=== PATIENT | male | born 1945 | race Hispanic/Latino ===

== ENCOUNTER 2019-01-09 14:03 | Observation (INO) | payer OTHER ==
[2019-01-09 14:49] LABS: Absolute Lymphocytes (CBC) 0.9 K/uL (0.7-4.9); Basophils % 0.4 % (0-1.3); Hematocrit 38.5 % (39.6-49.0); Lymphocytes % 5.9 % (15.3-44.8); MPV 8.9 fL (7.6-11.3); RBC Red Blood Cell Count 4.19 M/uL (4.33-5.43)
--- NOTE | 2019-01-09 14:50 | EKG ---
Test Date: 2019-01-09 Test Time: 14:15:23 Director Of Dietary: JEFFREY MEASUREMENT RESULTS: Intervals: Rate: 105 OR: 186 QRSD: 76 QT: 330 QTc: 436 [place]: P: 63 OR: 186 QRS: -37 T: 59 INTERPRETIVE STATEMENTS: Sinus tachycardia Left axis deviation Abnormal ECG Compared to ECG 07/21/2017 02:27:21 Sinus rhythm no longer present Electronically Signed On 01-09-19 14:50:14 CDT by Torey Swift
[2019-01-09 15:04] LABS: Potassium 4.2 mmol/L (3.5-5.1); Troponin (Emerg Dept Use Only) 0.06 ng/mL (0.0-0.045)
[2019-01-09 15:09] LABS: Blood Morphology Comment NOT SEEN (NOT SEEN); Platelet Estimate ADEQ; Urine White Blood Cell Casts OK
--- NOTE | 2019-01-09 15:13 | RAD REPORT ---
EXAM DESCRIPTION: Karina Single View01/09/2019 2:56 pm CLINICAL HISTORY: Shortness of breath COMPARISON: July 2017 FINDINGS: The lungs appear clear of acute infiltrate. The heart is normal size IMPRESSION: No acute abnormalities displayed
--- NOTE | 2019-01-09 15:23 | ER ---
Nurse's Notes [facility] Name: Iam Nelson Age: 73 yrs Sex: Male : 1945 Arrival Date: 01/09/2019 Time: 14:07 Bed 20 Private MD: Alex Bethea Diagnosis: Non-ST elevation (NSTEMI) myocardial infarction;Acute kidney failure, unspecified Presentation: 01/09 14:20 Presenting complaint: Patient states: I got my blood drawn and went outside and felt la1 like I couldn't breathe. Transition of care: patient was not received from another setting of care. Onset of symptoms was January 09, 2019. Risk Assessment: Do you want to hurt yourself or someone else? Patient reports no desire to harm self or others. Initial Sepsis Screen: Does the patient meet any 2 criteria? No. Patient's initial sepsis screen is negative. Does the patient have a suspected source of infection? No. Patient's initial sepsis screen is negative. Care prior to arrival: None. 14:20 Method Of Arrival: Ambulatory la1 14:20 Acuity: DORA 3 la1 Historical: - Allergies: 14:22 No Known Allergies; la1 - Home Meds: 16:00 finasteride 5 mg Oral tab 1 tab once daily for Symptomatic Benign Prostatic Hyperplasia hb [Active]; losartan 25 mg Oral tab 1 tab once daily for Hypertension [Active]; Zyrtec 10 mg Oral tab 1 tab once daily for Allergic rhinitis [Active]; - PMHx: 14:22 Cataracts; Hyperlipidemia; Hypertension; inflammed prostate; la1 - Immunization history:: Adult Immunizations up to date. - Social history:: Smoking status: Patient/guardian denies using tobacco. - Ebola Screening: : No symptoms or risks identified at this time. - Family history:: not pertinent. - Hospitalizations: : No recent hospitalization is reported. Screenin:40 Abuse screen: Denies threats or abuse. Denies injuries from another. Nutritional hb screening: On. Tuberculosis screening: No symptoms or risk factors identified. Fall Risk None identified. Assessment: 14:40 General: Appears in no apparent distress. Behavior is calm, cooperative. Pain: Pain hb does not radiate. Pain currently is 4 out of 10 on a pain scale. Pain began gradually. Neuro: Level of Consciousness is awake, alert, obeys commands, Oriented to person, place, time, situation. Cardiovascular: Heart tones S1 S2 present Capillary refill < 3 seconds Patient's skin is warm and dry. Respiratory: Airway is patent Respiratory effort is even, unlabored, Respiratory pattern is regular, symmetrical, Breath sounds are clear bilaterally. GI: No signs and/or symptoms were reported involving the gastrointestinal system. : No signs and/or symptoms were reported regarding the genitourinary system. EENT: No signs and/or symptoms were reported regarding the EENT system. Derm: Skin is intact, is healthy with good turgor, Skin is pink, warm \T\ dry. Musculoskeletal: No signs and/or symptoms reported regarding the musculoskeletal system. 15:15 Reassessment: Patient appears in no apparent distress at this time. Patient and/or hb family updated on plan of care and expected duration. Pain level reassessed. Patient is alert, oriented x 3, equal unlabored respirations, skin warm/dry/pink. 16:05 Reassessment: Patient appears in no apparent distress at this time. Patient and/or hb family updated on plan of care and expected duration. Pain level reassessed. Patient is alert, oriented x 3, equal unlabored respirations, skin warm/dry/pink. Admission ordered, awaiting room assignment at this time. 16:42 Reassessment: Attempted to call report to floor, receiving nurse unavailable at this time. 17:14 Reassessment: Patient appears in no apparent distress at this time. No changes from previously documented assessment. Patient and/or family updated on plan of care and expected duration. Pain level reassessed. Patient is alert, oriented x 3, equal unlabored respirations, skin warm/dry/pink. Vital Signs: 14:22 BP 180 / 80; Pulse 111; Resp 16; Pulse Ox 98% on R/A; la1 15:30 Temp 98.2; Weight 65.77 kg; Height 5 ft. 5 in. (165.10 cm); hb 16:15 BP 151 / 71; Pulse 97; Resp 17; Pulse Ox 100% on R/A; Pain 0/10; hb 17:00 BP 144 / 73; Pulse 91; Resp 15; Pulse Ox 100% on R/A; hb 15:30 Body Mass Index 24.13 (65.77 kg, 165.10 cm) hb ED Course: 14:07 Patient arrived in ED. mr 14:07 Alex Bethea MD is Private Physician. mr 14:13 Gabe Alejandre MD is Attending Physician. rn 14:21 Triage completed. la1 14:22 Arm band placed on right wrist. la1 14:24 EKG done, by audiovisual tech. reviewed by Alex Bethea MD. tc 14:27 Rosa Hernandez, RN is Primary Nurse. hb 14:40 Patient has correct armband on for positive identification. Placed in gown. Bed in low hb position. Call light in reach. white lead grinder on. Pulse ox on. NIBP on. 14:40 Inserted saline lock: 20 gauge in right forearm, using aseptic technique. Blood hb collected. Patient maintains SpO2 saturation greater than 95% on room air. 14:55 X-ray completed. Portable x-ray completed in exam room. Patient tolerated procedure ml well. 15:11 XRAY Chest (1 view) In Process Unspecified. EDWA 15:22 Jose Villeda DO is Hospitalizing Provider. rn 17:53 No provider procedures requiring assistance completed. Patient admitted, IV remains in hb place. Administered Medications: 15:44 Drug: NS 0.9% 500 ml Route: IV; Rate: bolus; Site: right forearm; hb 16:00 Follow up: Response: No adverse reaction; IV Status: Completed infusion; IV Intake: hb 500ml 15:44 Drug: Aspirin 81 mg Route: PO; hb 16:40 Follow up: Response: No adverse reaction hb 15:44 Drug: Lovenox 1 mg/kg Route: Sub-Q; Site: abdomen; hb 16:40 Follow up: Response: No adverse reaction hb Intake: 16:00 IV: 500ml; Total: 500ml. hb Outcome: 15:23 Decision to Hospitalize by Provider. rn 17:53 Admitted to Tele accompanied by tech, via wheelchair, Report called to Alfredo sullivan 17:53 Condition: stable 17:53 Instructed on the need for admit, Demonstrated understanding of instructions. 17:55 Patient left the ED. hb Signatures: Dispatcher [employer] EDWA Pramod Brittney White Luisa ml Gabe Alejandre MD MD rn Callis, Tiffany, facilities maintenance supervisor EKG Ttc Tahir Oneil RN RN la1 Rosa Hernandez, JEREMY RN hb Corrections: (The following items were deleted from the chart) 15:33 15:30 65.77 kg; Height 5 ft. 5 in.; BMI: 24.1; hb hb
--- NOTE | 2019-01-09 15:24 | EDPHYS ---
Physician Documentation [facility] Name: Iam Nelson Age: 73 yrs Sex: Male : 1945 Arrival Date: 01/09/2019 Time: 14:07 Bed 20 Private MD: Alex Bethea ED Physician Gabe Alejandre HPI: 01/09 14:29 This 73 yrs old Male presents to ER via Ambulatory with complaints of Chest rn Pressure, palpitations, sob. 14:29 The patient or guardian reports chest pain that is located primarily in the substernal rn area. Onset: today. The pain does not radiate. Associated signs and symptoms: Pertinent positives: palpitations, shortness of breath, Pertinent negatives: abdominal pain, diaphoresis, near syncope, syncope, vomiting. The chest pain is described as a pressure. Duration: The patient or guardian reports multiple episodes, that are intermittent. Modifying factors: The symptoms are alleviated by nothing. the symptoms are aggravated by exertion. Severity of pain: At its worst the pain was mild in the emergency department the pain has improved. The patient has experienced a previous episode. Reports had blood drawn today, felt ok, was outside and reports dyspnea with exertion, chest pressure, non-radiating, currently asymptomatic, reports palpitations. States has happened once before and doesn't recall what happened. Denies recent surgery or trauma. No fever. . Historical: - Allergies: 14:22 No Known Allergies; la1 - Home Meds: 16:00 finasteride 5 mg Oral tab 1 tab once daily for Symptomatic Benign Prostatic Hyperplasia hb [Active]; losartan 25 mg Oral tab 1 tab once daily for Hypertension [Active]; Zyrtec 10 mg Oral tab 1 tab once daily for Allergic rhinitis [Active]; - PMHx: 14:22 Cataracts; Hyperlipidemia; Hypertension; inflammed prostate; la1 - Immunization history:: Adult Immunizations up to date. - Social history:: Smoking status: Patient/guardian denies using tobacco. - Ebola Screening: : No symptoms or risks identified at this time. - Family history:: not pertinent. - Hospitalizations: : No recent hospitalization is reported. ROS: 14:29 Constitutional: Negative for fever, chills, and weight loss, Eyes: Negative for injury, rn pain, redness, and discharge, Neck: Negative for injury, pain, and swelling, Cardiovascular: Negative for edema Respiratory: Negative for wheezing, and pleuritic chest pain, Abdomen/GI: Negative for abdominal pain, nausea, vomiting, diarrhea, and constipation, MS/Extremity: Negative for injury and deformity, Skin: Negative for injury, rash, and discoloration, Neuro: Negative for headache, weakness, numbness, tingling, and seizure. Exam: 14:29 Constitutional: This is a well developed, well nourished patient who is awake, alert, rn and in no acute distress. Head/Face: Normocephalic, atraumatic. Eyes: Pupils equal round and reactive to light, extra-ocular motions intact. Lids and lashes normal. Conjunctiva and sclera are non-icteric and not injected. Cornea within normal limits. Periorbital areas with no swelling, redness, or edema. Cardiovascular: Tachycardic, regular, no murmur Respiratory: Lungs have equal breath sounds bilaterally, clear to auscultation. No increased work of breathing, no retractions or nasal flaring. Abdomen/GI: Soft, non-tender. No evidence of tenderness throughout. MS/ Extremity: Pulses equal, no cyanosis. Neurovascular intact. Full, normal range of motion. Equal circumference. Neuro: Awake and alert, GCS 15, oriented to person, place, time, and situation. Cranial nerves II-XII grossly intact. Motor strength 5/5 in all extremities. Sensory grossly intact. Cerebellar exam normal. Vital Signs: 14:22 BP 180 / 80; Pulse 111; Resp 16; Pulse Ox 98% on R/A; la1 15:30 Temp 98.2; Weight 65.77 kg; Height 5 ft. 5 in. (165.10 cm); hb 16:15 BP 151 / 71; Pulse 97; Resp 17; Pulse Ox 100% on R/A; Pain 0/10; hb 17:00 BP 144 / 73; Pulse 91; Resp 15; Pulse Ox 100% on R/A; hb 15:30 Body Mass Index 24.13 (65.77 kg, 165.10 cm) hb MDM: 14:13 Patient medically screened. rn 15:19 Differential diagnosis: acute myocardial infarction, acute pericarditis, coronary rn artery disease stable angina, unstable angina. The patient was given aspirin in the Emergency Department. Data reviewed: vital signs, nurses notes, lab test result(s), EKG, radiologic studies, plain films, and as a result, I will admit patient. Counseling: I had a detailed discussion with the patient and/or guardian regarding: the historical points, exam findings, and any diagnostic results supporting the discharge/admit diagnosis, lab results, radiology results, the need for further work-up and treatment in the hospital. Admission orders: after a detailed discussion of the patient's condition and case, the admit orders are written by me. ED course: Pt with chest pain and dyspnea on exertion, increase in frequency, + troponin, will admit to Dr. Villeda for cardiac eval. Given aspirin and lovenox.. 01/09 14:22 Order name: Basic Metabolic Panel; Complete Time: 15:11 rn 01/09 14:22 Order name: CBC with Diff; Complete Time: 15:11 01/09 14:22 Order name: NT PRO-BNP; Complete Time: 15:11 01/09 14:22 Order name: Troponin (emerg Dept Use Only); Complete Time: 15:11 01/09 15:10 Order name: CBC Smear Scan; Complete Time: 15:11 EDMS 01/09 15:48 Order name: Lactate rn 01/09 14:22 Order name: XRAY Chest (1 view); Complete Time: 15:23 01/09 15:48 Order name: Procalcitonin 01/09 15:48 Order name: Blood Culture Adult (2) 01/09 15:48 Order name: Urine Microscopic Only 01/09 15:48 Order name: Urine Culture 01/09 14:22 Order name: EKG; Complete Time: 14:23 01/09 14:22 Order name: Cardiac monitoring; Complete Time: 14:49 rn 01/09 14:22 Order name: EKG - Nurse/Tech; Complete Time: 14:22 rn 01/09 14:22 Order name: IV Saline Lock; Complete Time: 14:49 rn 01/09 14:22 Order name: Labs collected and sent; Complete Time: 14:49 rn 01/09 14:22 Order name: O2 Per Protocol; Complete Time: 14:49 rn 01/09 14:22 Order name: O2 Sat Monitoring; Complete Time: 14:52 rn Administered Medications: 15:44 Drug: NS 0.9% 500 ml Route: IV; Rate: bolus; Site: right forearm; hb 16:00 Follow up: Response: No adverse reaction; IV Status: Completed infusion; IV Intake: hb 500ml 15:44 Drug: Aspirin 81 mg Route: PO; hb 16:40 Follow up: Response: No adverse reaction hb 15:44 Drug: Lovenox 1 mg/kg Route: Sub-Q; Site: abdomen; hb 16:40 Follow up: Response: No adverse reaction hb Disposition: 01/09/19 15:23 Hospitalization ordered by Jose Villeda for Inpatient Admission. Preliminary diagnosis are Non-ST elevation (NSTEMI) myocardial infarction, Acute kidney failure, unspecified. - Bed requested for Telemetry/MedSurg (Inpatient). - Status is Inpatient Admission. hb - Condition is Stable. - Problem is new. - Symptoms have improved. UTI on Admission? No Signatures: Dispatcher [employer] EDMS Gabe Alejandre MD MD rn Attema, Lee, RN RN la1 Rosa Hernandez RN JEREMY Donal Jordan RN JEREMY ja1 Corrections: (The following items were deleted from the chart) 16:15 15:23 Hospitalization Ordered by Jose Villeda DO for Inpatient Admission. Preliminary ja1 diagnosis is Non-ST elevation (NSTEMI) myocardial infarction; Acute kidney failure, unspecified. Bed requested for Telemetry/MedSurg (Inpatient). Status is Inpatient Admission. Condition is Stable. Problem is new. Symptoms have improved. UTI on Admission? No. rn 17:55 16:15 01/09/2019 15:23 Hospitalization Ordered by Jose Villeda DO for Inpatient hb Admission. Preliminary diagnosis is Non-ST elevation (NSTEMI) myocardial infarction; Acute kidney failure, unspecified. Bed requested for Telemetry/MedSurg (Inpatient). Status is Inpatient Admission. Condition is Stable. Problem is new. Symptoms have improved. UTI on Admission? No. ja1
[2019-01-09] MEDS ORDERED: NA CHLORIDE 0.9% 500 ML ONE (15:40)
[2019-01-09] MEDS ORDERED: ASPIRIN 81 MG CHEWABLE TABLET ONE (15:40)
[2019-01-09] MEDS ORDERED: ENOXAPARIN 60 MG/0.6 ML SQ ONE (15:41)
--- NOTE | 2019-01-09 16:14 | P.HP ---
Certification for Inpatient Patient admitted to: Observation With expected LOS: <2 Midnights Patient will require the following post-hospital care: None Practitioner: I am a practitioner with admitting privileges, knowledge of patient current condition, hospital course, and medical plan of care. Services: Services provided to patient in accordance with Admission requirements found in Title 42 Section 412.3 of the Code of Federal Regulations Patient History Date of Service: 01/09/19 Primary Care Provider: Dr. Laura Reason for admission: Chest pain, Shortness of breath History of Present Illness: 73-year-old cough male presented to the emergency room with chest pain and shortness of breath. Patient with history of hypertension, hyperlipidemia, BPH and chronic renal disease. Yesterday patient went to see his PCP. He had been having some congestion lately. He apparently got a shot of steroids. Today he noted increasing shortness of breath with exertion. He also reported some chest pain. Chest pain was substernal in nature. He rated the pain about a 7/10. It was associated with shortness of breath. Chest pain was worse with exertion. He also reported chest pain whenever he was out site. When he rested pain would go away. Patient was initially slightly tachycardic with elevated blood pressure in the emergency room. White count 14.7, hemoglobin 13. Platelet count 250. Sodium 139 , potassium 4.2, BUN of 38, creatinine 1.95 with a GFR of 35. UA pending at this time. Chest x-ray negative. Troponin was slightly elevated at 0.06. Patient was admitted for further evaluation. When I saw the patient in the ER, he had some chills. He denied any recent fever. Prior information reviewed. It appears patient has underlying chronic renal disease with a GFR of around 50 in 2018. In 2018 he also had an echocardiogram which was unremarkable. In 2016 he was evaluated in the hospital for chest pain and SOB. He had a stress test that was unremarkable at that time. Interestingly he had a bacteremia with positive blood cultures for staph. Patient had reported some problems urinating. Patient has underlying BPH. Patient does not appear septic at this time. Patient stable this time. Allergies No Known Drug Allergies Allergy (Verified 01/17/16 11:03) Unknown No Known Allergies Allergy (Uncoded 01/21/16 02:11) Unknown Home medications list reviewed: Yes Home Medications: Finasteride [Proscar*] 5 mg PO DAILY 01/16/16 Losartan Potassium [Cozaar] 25 mg PO DAILY 01/16/16 Amlodipine [Norvasc*] 5 mg PO DAILY 07/21/17 Pantoprazole [Protonix Tab*] 40 mg PO BIDAC #60 tab 07/21/17 Pravastatin Sodium [Pravachol] 40 mg PO BEDTIME 07/21/17 - Past Medical/Surgical History Diabetic: No -: HTN -: Hyperlipidemia -: BPH -: Cataracts -: GERD Past Surgical History: Patient denies surgical history Psychosocial/ Personal History: Patient is - Family History Family History: Reviewed- Non-Contributory - Social History Smoking Status: Never smoker Alcohol use: No CD- Drugs: No Caffeine use: Yes Place of Residence: Home Review of Systems General: Chills, Weakness, Malaise, As per HPI Eyes: Unremarkable ENT: Unremarkable Respiratory: Shortness of Breath, SOB with Excertion, As per HPI Cardiovascular: Chest Pain, Light Headedness, As per HPI Gastrointestinal: Unremarkable Genitourinary: As per HPI Musculoskeletal: Unremarkable Integumentary: Unremarkable Neurological: Unremarkable Lymphatics: Unremarkable Physical Examination - Physical Exam General: Alert, In no apparent distress, Oriented x3, Cooperative, Other ( Patient had chills but appeared stable) HEENT: Atraumatic, Normocephalic, PERRLA, Other (Dry mucous membranes) Neck: Supple, No Thyromegaly Respiratory: Clear to auscultation bilaterally, Normal air movement Cardiovascular: Normal pulses, Regular rate/rhythm Gastrointestinal: Normal bowel sounds, Soft and benign, Non-distended, No tenderness, No masses, No rebound, No guarding Musculoskeletal: No erythema, No tenderness, No warmth Integumentary: No tenderness/swelling, No erythema, No warmth, No cyanosis Neurological: Normal speech, Normal strength at 5/5 x4 extr, Normal tone, Normal affect - Studies Laboratory Data (last 24 hrs) 01/09/19 14:36: WBC 14.7 H, Hgb 13.0 L, Hct 38.5 L, Plt Count 250 01/09/19 14:36: Sodium 139, Potassium 4.2, BUN 38 H, Creatinine 1.92 H, Glucose 171 H Assessment and Plan - Plan Impression: Chest pain with shortness of breath upon exertion suspect unstable angina Chills with leukocytosis suspect UTI Hypertension Acute on chronic renal disease secondary to dehydration Hyperlipidemia GERD BPH Seasonal allergies Plan: Chest pain with shortness of breath upon exertion suspect unstable angina: Patient will be admitted for further evaluation and treatment. Will monitor cardiac enzymes and telemetry. Troponin slightly elevated. Will order echocardiogram. Will keep the patient NPO after midnight as patient may require cardiac evaluation. Will consult cardiology to further evaluate. Will provide DVT prophylaxis-Lovenox. Will start aspirin, statin medication and beta -santosh therapy. Anticipate discharge within the next 24-48 hr pending clinical improvement and clearance by Cardiology. Chills with leukocytosis suspect UTI: Patient had chills with leukocytosis today. Etiology still unclear. Will obtain urinalysis. Suspect UTI. Chest x- ray unremarkable. Patient with history of bacteremia in 2016. Blood cultures obtained. Will start Rocephin at this time. Will continue to reassess. Continue IV fluid hydration. Will also obtained lactic acid and pro calcitonin. Hypertension: Blood pressure elevated. Acute on chronic renal disease noted likely from dehydration. Will hold KAYDEN-inhibitor. Will start beta-santosh therapy for blood pressure control. Will continue to monitor and adjust appropriately. Acute on chronic renal disease secondary to dehydration: Suspect dehydration as well. Will check renal ultrasound. Nephrology consulted. Hold KAYDEN- inhibitor at this time. Recommend no nonsteroidal anti-inflammatories. Medications at discharge may need to be adjusted. Patient appears to have underlying chronic renal disease. Will discuss with nephrology tomorrow. Hyperlipidemia: Will check fasting lipid panel. Will continue with statin medication. GERD: Provide PPI. BPH: Obtain and restart home medication-Proscar. Seasonal allergies: Patient given Solu-Medrol in PCP office yesterday. Will provide nasal steroid. Continue as above. Discharge Plan: Home Plan to discharge in: 48 Hours - Advance Directives Does patient have a Living Will: No Does patient have a Durable POA for Healthcare: No - Code Status/Comfort Care Code Status Assessed: Yes (Patient is full code) Time Spent Managing Pts Care (In Minutes): 55
[2019-01-09] MEDS ORDERED: ONDANSETRON 4 MG/2 ML VIAL IV PRN (18:06)
[2019-01-09] MEDS ORDERED: ACETAMINOPHEN 650MG/RECT SUPP PR PRN (18:06)
[2019-01-09] MEDS ORDERED: ACETAMINOPHEN 500 MG TAB PO PRN (18:06)
[2019-01-09] MEDS ORDERED: NITROGLYCERIN 0.4 MG/TAB SL PRN (18:06)
[2019-01-09] MEDS: NA CHLORIDE 0.9% 1,000 ML IV SCH (18:06)
[2019-01-09 18:14] VITALS: BMI 25.0
[2019-01-09] MEDS: ENOXAPARIN 30 MG/0.3 ML SQ SCH (18:46)
[2019-01-09] MEDS: FAMOTIDINE 20 MG TAB PO SCH (18:46)
[2019-01-09] MEDS: CEFTRIAXONE/SWI 1gm 1 GM/10 ML SYR IVP SCH (18:47)
[2019-01-09] MEDS: METOPROLOL TAR 25 MG TAB PO SCH (18:47)
[2019-01-09] MEDS: FLUTICASONE 50MCG NASAL SPRAY NAS SCH ×4 (19:57→20:45)
--- NOTE | 2019-01-09 20:08 | RAD REPORT ---
EXAM DESCRIPTION: US - Renal Ultrasound-Complete - 01/09/2019 7:50 pm CLINICAL HISTORY: Chronic renal failure COMPARISON: 2016 FINDINGS: The right kidney measures 10 cm with an increased echotexture. The left kidney measures 11 cm with an increased echotexture. 8 millimeter cyst Hydronephrosis is not seen. No gross abnormality of bladder is seen IMPRESSION: Increased renal echotexture consistent with parenchymal disease
[2019-01-09] MEDS ORDERED: FINASTERIDE 5 MG TAB PO SCH (21:00)
[2019-01-09] MEDS ORDERED: FAMOTIDINE 20 MG TAB PO SCH (21:00)
[2019-01-09] MEDS ORDERED: ATORVASTATIN 40 MG TAB PO SCH (21:00)
[2019-01-09 22:27] LABS: Urine Appearance CLEAR; Urine Bilirubin NEGATIVE (NEG); Urine Blood 3+ (NEG); Urine Color YELLOW; Urine Glucose NEGATIVE (NEG); Urine Protein 1+ (NEG); Urine Urobilinogen 0.2 mg/dL (0.2-1.0)
[2019-01-09 22:29] LABS: Urine Microscopic Reflex ORDER UMIC
[2019-01-09 22:40] LABS: CKMB Creatine Kinase MB < 1.0 ng/mL (0.3-3.6); Creatine Phosphokinase 120 U/L (39-308); Troponin I 0.08 ng/mL (0.0-0.045)
[2019-01-09 22:41] LABS: Urine Culture Reflex Order NOT NEEDED
[2019-01-09 22:44] LABS: Urine Bacteria <20 /HPF (NONE SEEN)
[2019-01-10] MEDS: NA CHLORIDE 0.9% 1,000 ML IV SCH (03:34)
[2019-01-10 04:35] VITALS: O2SAT 97
[2019-01-10] MEDS: METOPROLOL TAR 25 MG TAB PO SCH (05:23)
[2019-01-10 06:44] LABS: Absolute Lymphocytes (CBC) 1.2 K/uL (0.7-4.9); Basophils % 0.3 % (0-1.3); Hematocrit 35.5 % (39.6-49.0); Lymphocytes % 10.6 % (15.3-44.8); MPV 8.8 fL (7.6-11.3); RBC Red Blood Cell Count 3.83 M/uL (4.33-5.43)
[2019-01-10 07:01] LABS: CKMB Creatine Kinase MB < 1.0 ng/mL (0.3-3.6); Creatine Phosphokinase 108 U/L (39-308); Troponin I 0.08 ng/mL (0.0-0.045)
[2019-01-10 07:12] LABS: Magnesium 2.5 mg/dL (1.8-2.4); Potassium 4.2 mmol/L (3.5-5.1); Thyroid Stimulating Hormone 1.26 uIU/mL (0.360-3.740)
[2019-01-10] MEDS: CEFTRIAXONE/SWI 1gm 1 GM/10 ML SYR IVP SCH (09:00)
[2019-01-10] MEDS ORDERED: D5W 1,000 ML IV SCH (09:00)
[2019-01-10] MEDS ORDERED: ASPIRIN EC 81 MG TAB PO SCH (09:00)
[2019-01-10] MEDS: FLUTICASONE 50MCG NASAL SPRAY NAS SCH (09:00)
[2019-01-10] MEDS: ENOXAPARIN 30 MG/0.3 ML SQ SCH (09:53)
[2019-01-10] MEDS: FAMOTIDINE 20 MG TAB PO SCH (09:53)
--- NOTE | 2019-01-10 11:20 | P.DS ---
Admission Date: 01/09/19 Discharge Date: 01/10/19 Primary Care Provider: Dr. Laura Disposition: ROUTINE DISCHARGE Discharge Condition: GOOD Reason for Admission: Chest pain, Shortness of breath Consultations: Cardiology-Dr. Cueva Procedures: CXR: COMPARISON: July 2017 FINDINGS: The lungs appear clear of acute infiltrate. The heart is normal size IMPRESSION: No acute abnormalities displayed Renal US: COMPARISON: 2015 FINDINGS: The right kidney measures 10 cm with an increased echotexture. The left kidney measures 11 cm with an increased echotexture. 8 millimeter cyst Hydronephrosis is not seen. No gross abnormality of bladder is seen IMPRESSION: Increased renal echotexture consistent with parenchymal disease Medical Problem List: Chest pain with shortness of breath upon exertion related to medication-IM steroid Chills with leukocytosis suspect related to medication-IM steroid Hypertension Acute on chronic renal disease, stage III secondary to dehydration Hyperlipidemia GERD BPH Seasonal allergies Brief History of Present Illness: 73-year-old cough male presented to the emergency room with chest pain and shortness of breath. Patient with history of hypertension, hyperlipidemia, BPH and chronic renal disease. Yesterday patient went to see his PCP. He had been having some congestion lately. He apparently got a shot of steroids. Today he noted increasing shortness of breath with exertion. He also reported some chest pain. Chest pain was substernal in nature. He rated the pain about a 7/10. It was associated with shortness of breath. Chest pain was worse with exertion. He also reported chest pain whenever he was out site. When he rested pain would go away. Patient was initially slightly tachycardic with elevated blood pressure in the emergency room. White count 14.7, hemoglobin 13. Platelet count 250. Sodium 139 , potassium 4.2, BUN of 38, creatinine 1.95 with a GFR of 35. UA pending at this time. Chest x-ray negative. Troponin was slightly elevated at 0.06. Patient was admitted for further evaluation. When I saw the patient in the ER, he had some chills. He denied any recent fever. Prior information reviewed. It appears patient has underlying chronic renal disease with a GFR of around 50 in 2018. In 2018 he also had an echocardiogram which was unremarkable. In 2016 he was evaluated in the hospital for chest pain and SOB. He had a stress test that was unremarkable at that time. Interestingly he had a bacteremia with positive blood cultures for staph. Patient had reported some problems urinating. Patient has underlying BPH. Patient does not appear septic at this time. Patient stable this time. Hospital Course: Patient presented with chest pain, shortness of breath with exertion. Patient reported he had been having congestion over the past month. The day before the ER visit, he received an injection intramuscularly likely steroid for congestion. When he presented to the ER he had chills, chest pain and shortness of breath. White count and troponin was elevated. Renal function was slightly compromise. Patient with underlying hypertension, chronic renal disease, BPH. Chest x-ray unremarkable. Urinalysis unremarkable. Patient was further admitted for further evaluation. Patient was seen by Cardiology. Previous information reviewed. Cardiac stress test 2016 unremarkable. Echocardiogram 2016 unremarkable. Echocardiogram performed. Case discussed at length with cardiology. No inpatient cardiac intervention required at this time. At discharge he is without chest pain, shortness of breath. At discharge lab-CBC, BMP shows improvement. White count now within normal range. No evidence of sepsis or infection. Pro calcitonin, lactic acid within normal range. Patient has been afebrile. Recommend follow up with cardiology in 1-2 weeks to follow up this hospitalization. Patient will have outpatient stress test to further evaluate. Patient also had acute on chronic renal disease stage III. This is likely from dehydration. Patient was given IV fluids. Renal function improved. Initial creatinine 1.92 with a GFR of 35. After IV fluids creatinine 1.48 with a GFR 46. Renal ultrasound shows chronic renal disease. At discharge will recommend patient to follow up with nephrology in 1-2 weeks to follow up this hospitalization. Recommend to recheck lab-BMP in 1 week. Recommended no use of nonsteroidal anti-inflammatories. Future medications will need to be renally dosed. Patient with underlying hypertension. This has remained stable. Patient will continue with his medication Norvasc 5 mg daily. Recommend to maintain blood pressures less 150/80. Further adjustment can be done by his PCP. Patient with BPH. Patient will continue with Proscar 5 mg daily. Patient likely with underlying GERD. At discharge he will continue with Pepcid 20 mg 1 pill twice daily. Patient may benefit with GI evaluation as an outpatient to further evaluate. Patient with seasonal allergies. At discharge will recommend to continue with nasal steroid-Flonase 1 spray per nostril twice daily. Patient may benefit with ENT evaluation as an outpatient to further evaluate. Will recommend no further use of IM steroid injection. Vital Signs/Physical Exam: Temp Pulse Resp BP Pulse Ox 98.0 F 67 20 135/63 97 01/10/19 04:00 01/10/19 05:23 01/10/19 04:00 01/10/19 05:23 01/10/19 04:00 General: Alert, In no apparent distress, Oriented x3, Cooperative HEENT: Atraumatic Neck: Supple Respiratory: Clear to auscultation bilaterally, Normal air movement Cardiovascular: Normal pulses, Regular rate/rhythm Gastrointestinal: Normal bowel sounds, Soft and benign, Non-distended, No tenderness, No masses, No rebound, No guarding Musculoskeletal: No erythema, No tenderness, No warmth Integumentary: No tenderness/swelling, No erythema, No warmth, No cyanosis Neurological: Normal speech, Normal strength at 5/5 x4 extr, Normal tone, Normal affect Laboratory Data at Discharge: WBC 10.9 K/uL (4.3-10.9) D 01/10/19 06:28 Hgb 12.0 g/dL (13.6-17.9) L 01/10/19 06:28 Hct 35.5 % (39.6-49.0) L 01/10/19 06:28 Plt Count 220 K/uL (152-406) 01/10/19 06:28 Sodium 146 mmol/L (136-145) H 01/10/19 06:28 Potassium 4.2 mmol/L (3.5-5.1) 01/10/19 06:28 BUN 31 mg/dL (7-18) H 01/10/19 06:28 Creatinine 1.48 mg/dL (0.55-1.3) H 01/10/19 06:28 Glucose 113 mg/dL (74-106) H 01/10/19 06:28 Magnesium 2.5 mg/dL (1.8-2.4) H 01/10/19 06:28 Troponin I 0.08 ng/mL (0.0-0.045) H 01/10/19 06:28 Triglycerides 131 mg/dL (<150) 01/10/19 06:28 Cholesterol 217 mg/dL (<200) H 01/10/19 06:28 HDL Cholesterol 36 mg/dL (40-60) L 01/10/19 06:28 Cholesterol/HDL Ratio 6.03 01/10/19 06:28 Home Medications: Finasteride [Proscar*] 5 mg PO DAILY 01/16/16 Amlodipine [Norvasc*] 5 mg PO DAILY 07/21/17 Famotidine [Pepcid*] 20 mg PO BID #60 tab 01/10/19 Fluticasone [Flonase 50MCG Nasal [place]*] 1 sprays CLAU BID #1 btl 01/10/19 New Medications: Famotidine [Pepcid*] 20 mg PO BID #60 tab Fluticasone [Flonase 50MCG Nasal [place]*] 1 sprays CLAU BID #1 btl Patient Discharge Instructions: 1. Recommend follow up with PCP in 1 week to follow up this hospitalization. 2. Patient presented with chest pain, shortness of breath with exertion. Patient reported he had been having congestion over the past month. The day before the ER visit, he received an injection intramuscularly likely steroid for congestion. When he presented to the ER he had chills, chest pain and shortness of breath. White count and troponin was elevated. Renal function was slightly compromise. Patient with underlying hypertension, chronic renal disease, BPH. Chest x-ray unremarkable. Urinalysis unremarkable. Patient was further admitted for further evaluation. Patient was seen by Cardiology. Previous information reviewed. Cardiac stress test 2016 unremarkable. Echocardiogram 2016 unremarkable. Echocardiogram performed. Case discussed at length with cardiology. No inpatient cardiac intervention required at this time. At discharge he is without chest pain, shortness of breath. At discharge lab-CBC, BMP shows improvement. White count now within normal range. No evidence of sepsis or infection. Pro calcitonin, lactic acid within normal range. Patient has been afebrile. Recommend follow up with cardiology in 1-2 weeks to follow up this hospitalization. Patient will have outpatient stress test to further evaluate. 3. Patient also had acute on chronic renal disease stage III. This is likely from dehydration. Patient was given IV fluids. Renal function improved. Initial creatinine 1.92 with a GFR of 35. After IV fluids creatinine 1.48 with a GFR 46. Renal ultrasound shows chronic renal disease. At discharge will recommend patient to follow up with nephrology in 1-2 weeks to follow up this hospitalization. Recommend to recheck lab-BMP in 1 week. Recommended no use of nonsteroidal anti-inflammatories. Future medications will need to be renally dosed. 4. Patient with underlying hypertension. This has remained stable. Patient will continue with his medication Norvasc 5 mg daily. Recommend to maintain blood pressures less 150/80. Further adjustment can be done by his PCP. 5. Patient with BPH. Patient will continue with Proscar 5 mg daily. 6. Patient likely with underlying GERD. At discharge he will continue with Pepcid 20 mg 1 pill twice daily. Patient may benefit with GI evaluation as an outpatient to further evaluate. 7. Patient with seasonal allergies. At discharge will recommend to continue with nasal steroid-Flonase 1 spray per nostril twice daily. Patient may benefit with ENT evaluation as an outpatient to further evaluate. Will recommend no further use of IM steroid injection. Diet: Renal Activity: Ad david Time spent managing pt's care (in minutes): 55
[2019-01-10 12:12] VITALS: BP 137/68; TEMP 97.9
--- NOTE | 2019-01-10 15:21 | ECHO ---
HEIGHT: 5 ft 5 in WEIGHT: 150 lb 0 oz DATE OF STUDY: 01/10/[address]: Jose Villeda DO 2-DIMENSIONAL: YES M.MODE: YES DOPPLER: YES COLOR FLOW: YES TDS: PORTABLE: DEFINITY: BUBBLE STUDY: DIAGNOSIS: CHEST PAIN, SOB, HX HTN. CARDIAC HISTORY: CATHERIZATION: NO SURGERY: NO PROSTHETIC VALVE: NO PACEMAKER: NO MEASUREMENTS (cm) DIASTOLIC (NORMALS) SYSTOLIC (NORMALS) IVSd 1.0 (0.6-1.2) LA Diam 2.7 (1.9-4.0) LVEF 64% LVIDd 3.7 (3.5-5.7) LVIDs 2.4 (2.0-3.5) %FS 34% LVPWd 1.0 (0.6-1.2) Ao Diam 2.8 (2.0-3.7) 2 DIMENSIONAL ASSESSMENT: RIGHT ATRIUM: NORMAL LEFT ATRIUM: NORMAL RIGHT VENTRICLE: NORMAL LEFT VENTRICLE: NORMAL TRICUSPID VALVE: NORMAL MITRAL VALVE: NORMAL PULMONIC VALVE: NORMAL AORTIC VALVE: NORMAL PERICARDIAL EFFUSION: NONE AORTIC ROOT: NORMAL LEFT VENTRICULAR WALL MOTION: NORMAL DOPPLER/COLOR FLOW: TRACE TRICUSPID REGURGITATION. COMMENTS: TRACE TRICUSPID REGURGITATION. NORMAL LEFT VENTRICULAR EJECTION FRACTION AND SIZE. NO WALL MOTION ABNORMALITY. NO EFFUSION. TECHNOLOGIST: PATRICIA HE
--- NOTE | 2019-01-10 21:46 | CON ---
Date of Consultation: 01/10/2019 Reason For Consultation: Palpitations and chest pain. History Of Present Illness: Mr. Nelson is a 73-year-old white male. We have met have in the past a c ouple of years ago when had a normal echocardiogram and normal troponin. . Apparently, he has been treated for allergies by Dr. Bethea. Apparently, he has had issues with atypical chest kristi n and palpitation when he had allergies in the past. Denied PND, orthopnea, pedal edema, or syncope. Denied fever, chills, or cough. He had a normal chest x-ray. He had a normal echocardiogram. Las t time I saw him, his troponin was 0.06 and 0.08, not a classic rise and falls for acute coronary syn drome. His creatinine was 1.48. A renal ultrasound was done, which was negative. Chest x-ray was n egative. EKG was negative. He is asymptomatic right now and wants to go home. Allergies: NONE. Review of Systems: Negative. Social History: Negative. Family History: Negative. Medications: At home include Norvasc and Proscar. Past Medical History: Includes hypertension and dyslipidemia. Physical Examination: Vital Signs: Stable. He was afebrile. HEENT: Negative. Neck: Supple with no bruit. Chest: Clear to auscultation and percussion. Cardiac: Revealed a regular rhythm and rate without any murmurs, gallops, or rubs. Abdomen: Benign. Extremities: Revealed no clubbing, cyanosis, or edema. Diagnostic Data: As stated earlier. Impression And Plan: 1.Atypical chest pain. 2.Hypertension. 3.Dyslipidemia. 4.Renal insufficiency. Mr. Nelson has already had a normal echo, normal EKG, normal x-ray and blood work is not consistent wi th acute coronary syndrome . I think he has had a reaction to some of his medication or al lergies. I am comfortable with him going home. If his symptoms persist, I think he will require ano ther stress test. He has had a stress test in the past about 2 years ago that was normal. RICA/BALDOMEROL Voice ID: [id number] Report ID: [id number]
[2019-01-11] MEDS ORDERED: AMLODIPINE 5 MG TAB PO SCH (09:00)
== END 2019-01-10 15:30 | disposition home or self-care (01) ==
LOC: ER 14:03 → ERHOLD 15:48 → 4TH 17:28
PROVIDERS: ADMIT Family Medicine; ATTEND Family Medicine
DX: T38.0X5A Adverse effect of glucocorticoids and synthetic analogues, initial encounter (principal); R00.0 Tachycardia, unspecified; I12.9 Hypertensive chronic kidney disease with stage 1 through stage 4 chronic kidney disease, or unspecified chronic kidney disease; N17.9 Acute kidney failure, unspecified; N18.3 Chronic kidney disease, stage 3 (moderate); R74.8 Abnormal levels of other serum enzymes; R06.02 Shortness of breath; D72.829 Elevated white blood cell count, unspecified; K21.9 Gastro-esophageal reflux disease without esophagitis; E78.5 Hyperlipidemia, unspecified; N40.0 Benign prostatic hyperplasia without lower urinary tract symptoms
CPT/HCPCS: 93005; 93306; 87040 ×2; 85025 ×2; 87086; 80048 ×3; 36415; 83735; 82550 ×2; 80061; 83605; 84443; 84484 ×3; 82553 ×2; 84439; 84145; 83880; 71045; 76770; 96372; 99285; J1650 ×3; J0696 ×2; J7030 ×2; G0378 ×2; 81003; 81015; 87088

== ENCOUNTER 2019-10-24 08:32 | Emergency (ER) | payer OTHER ==
[2019-10-24 09:11] LABS: Absolute Lymphocytes (CBC) 1.7 K/uL (0.7-4.9); Basophils % 0.8 % (0-1.3); Hematocrit 35.6 % (39.6-49.0); Lymphocytes % 29.5 % (15.3-44.8); MPV 8.9 fL (7.6-11.3); RBC Red Blood Cell Count 3.87 M/uL (4.33-5.43)
[2019-10-24 09:21] LABS: Potassium 3.8 mmol/L (3.5-5.1)
--- OUTSIDE RECORDS SUMMARY | 2019-10-24 09:33 | XMS REPORT ---
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
--- OUTSIDE RECORDS SUMMARY | 2019-10-24 09:33 | XMS REPORT | Continuity of Care Document ---
:1945 Author Organization [facility] Address [address] [place] [address] Dr. Woo [address] [place] [id number] Care Team Providers Name Role Phone Unavailable Unavailable Unavailable Problems Condition Condition Condition Status Onset Resolution Last Treating Co mments Source Name Details Category Date Date Treatment Clinician Date Non-season Non-season Problem Active [facility] allergic Memori a rhinitis, rhinitis, l unspecifie unspecifie Ou tpati d trigger d trigger ent Clinics Mixed Mixed Problem Active [facility] hyperlipid hyperlipid Nohemi kes - emia emia [facility] Absolute Absolute Problem Active [facility] glaucoma glaucoma [facility] of both of both [facility] eyes eyes [facility] Benign Benign Problem Active [facility] prostatic prostatic Luke s - hyperplasi hyperplasi Me moria a, a, l unspecifie unspecifie Ou tpati d whether d whether ent lower lower Clinics urinary urinary tract tract symptoms symptoms present present Essential Essential Problem Active [facility] hypertensi hypertensi Nohemi kes - on on Memoria l Outpati ent Clinics Allergic Allergic Diagnosis Active [facility] rhinitis rhinitis [facility] Atopic Atopic Problem Active [facility] dermatitis dermatitis Nohemi kes - , , Memoria unspecifie unspecifie l d type d type [facility] Allergies, Adverse Reactions, Alerts This patient has no known allergies or adverse reactions. Medications Ordered Filled Start Stop Current Ordering Indication Dosage Frequency Signature Comments Components Source Medication Medication Date Date Medication? Clinician (SIG) Name Name Triamcinolo Triamcinolo Yes Harshil [address] [facility] ne ne 5-11 Dunne applicatio [facility] - Acetonide Acetonide 00:00: n Mem oria 00 l Outpati ent Clinics Amlodipine Amlodipine Yes Harshil [address] [facility] Besylate Besylate Dunne [facility] Pravastatin Pravastatin Yes Harshil TAKE [address] [facility] Sodium Sodium Dunne TABLET (40 Luke s - MG) BY Memoria MOUTH l DAILY Outpati ent Clinics Albuterol Albuterol Yes Harshil [address] [facility] Sulfate Sulfate Dunne needed [facility] Azopt Azopt Yes Harshil [address] [facility] Dunne into [facility] - affected Memoria eye l Outpati ent Clinics Finasteride Finasteride Yes Harshil [address] [facility] Dunne [facility] Loratadine Loratadine Yes Harshil TOME LAKHWINDER [facility] Dunne TABLETA [facility] - TODOS LOS Memoria D? l Outpati ent Clinics Lumigan Lumigan Yes Harshil 1 drop [facility] into [facility] - affected Memoria eye in the l evening Outpati ent Clinics [facility] Yes Harshil [address] [facility] Sodium Sodium Dunne [facility] Procedures This patient has no known procedures. Encounters Start End Encounter Admission Attending Care Care Encounter Source Date/Time Date/Time Type Type Clinicians Facility Department ID 2019-10-22 2019-10-22 [facility] [id number] [facility] 13:45:00 13:45:00 [facility] Medicine Outpati ent Clinics 2019-10-15 2019-10-15 [facility] [id number] [facility] 09:00:00 09:00:00 [facility] Medicine Outpati ent Clinics 2019-10-07 2019-10-07 [facility] [id number] [facility] 09:00:00 09:00:00 [facility] Medicine Outpati ent Clinics 2019-09-30 2019-09-30 [facility] [id number] [facility] [address] 10:00:00 10:00:[address] [facility] Medicine Medicine Outpati ent Clinics 2019-09-23 2019-09-23 [facility] [id number] [facility] 08:08:00 08:08:00 [facility] Medicine Outpati ent Clinics 2019-09-18 2019-09-18 [facility] [id number] [facility] 15:45:00 15:45:[address] Scrib[facility] Medicine Outpati ent Clinics 2019-09-18 2019-09-18 [facility] [id number] [facility] 15:45:00 15:45:[address] Scrib[facility] Medicine Outpati ent Clinics 2019-08-08 2019-08-08 [facility] [id number] 10:00:00 10:00:[address] Scrib[facility] Medicine Outpati ent Clinics 2019 2019 [facility] [id number] 16[facility]38:00 16:38:[address] Scribbles [facility] Medicine Outpati ent Clinics 2019 2019 [facility] [id number] 14:22:00 14:22:[address] Scrib[facility] Medicine Outpati ent Clinics 2019 2019 [facility] [id number] [facility] 14:00:00 14:00:[address] Scribbles [facility] Medicine Outpati ent Clinics Results This patient has no known results.
--- OUTSIDE RECORDS SUMMARY | 2019-10-24 09:33 | XMS REPORT ---
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 Pravastatin [facility] 79244651351 40 MG Oral Active TAKE 1 Sodium TABLET (40 MG) BY MOUTH DAILY Lumigan [facility] 67769015364 0.01 % Active 1 drop into Ophthalmic Once affected a day eye in the evening Azopt [facility] 06892760435 1 % Ophthalmic Active 1 sakina p into Three times a affected day eye Montelukast [facility] 74851816180 10 MG Orally Active 1 t ablet Sodium Once a day Finasteride [facility] 12096504250 5 MG Orally Active 1 ta blet Once a day Amlodipine [facility] 78604815575 5 MG Orally Active 1 tab let Besylate Once a day Albuterol [facility] 59693948525 108 (90 Base) Active 2 pu ff as Sulfate MCG/ACT needed Inhalation every 4 hrs PRN COugh, wheezing or shortness of breath Results No Known Results Summary Purpose eClinicalWorks Submission
--- OUTSIDE RECORDS SUMMARY | 2019-10-24 09:34 | XMS REPORT ---
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 Problem Benign prostatic hyperplasia, N40.0 Active unspecified whether lower urinary tract symptoms present Problem Atopic dermatitis, unspecified type L20.9 Active Problem Mixed hyperlipidemia E78.2 Active Problem Non-seasonal allergic rhinitis, J30.89 Active unspecified trigger Problem Essential hypertension I10 Activ e Medications Medication Code Code Instructions Start End Status Dosage System Date Date Pravastatin [facility][NOTE 3] 71447500436 40 MG Oral Active TAKE 1 TABLET Sodium (40 MG) BY MOUTH DAILY Lumigan [facility][NOTE 3] 35986304613 0.01 % Active 1 drop into Ophthalmic Once affected eye a day in the evening Loratadine [facility][NOTE 3] 99494497537 10 MG Oral Active TOME U NA TABLETA TODOS LOS D? Finasteride ND 86305761026 5 MG Orally Active 1 ta blet Once a day Amlodipine ND 15544887208 5 MG Orally Active 1 tab let Besylate Once a day Triamcinolone ND 42231500683 0.5 % Active 1 appl ication Acetonide Externally Two times a Week Montelukast [facility][NOTE 3] 67626036975 10 MG Orally Active 1 t ablet Sodium Once a day Albuterol [facility][NOTE 3] 21428865666 108 (90 Base) Active 2 pu ff as Sulfate MCG/ACT needed Inhalation every 4 hrs PRN COugh, wheezing or shortness of breath Azopt ND 42319128761 1 % Ophthalmic Active 1 sakina p into Three times a affected e ye day Results No Known Results Summary Purpose eClinicalWorks Submission
--- OUTSIDE RECORDS SUMMARY | 2019-10-24 09:34 | XMS REPORT ---
[...] Start End Status Dosage System Date Date Triamcinolone [facility] 15883000383 0.1 % August Active 1 appl ication Acetonide Externally 29, Twice a day for 2019 7-10 days Loratadine [facility] 18639229163 10 MG Oral Active TOME U NA TABLETA TODOS LOS D? Montelukast ND 34366296580 10 MG Orally Active 1 t ablet Sodium Once a day Albuterol ND 50726888580 108 (90 Base) Active 2 pu ff as Sulfate MCG/ACT needed Inhalation every 4 hrs PRN COugh, wheezing or shortness of breath Amlodipine ND 71322057831 5 MG Orally Active 1 tab let Besylate Once a day Pravastatin [facility] 07020898728 40 MG Oral Active TAKE 1 TABLET Sodium (40 MG) BY MOUTH DAILY Azopt ND 03725335306 1 % Ophthalmic Active 1 sakina p into Three times a affected e ye day Lumigan ND 89844969777 0.01 % Active 1 drop into Ophthalmic Once affected eye a day in the evening Finasteride ND 30281042091 5 MG Orally Active 1 ta blet Once a day Triamcinolone ND 82696569297 0.5 % September 29, Active 1 appl ication Acetonide Externally Two 2020 times a Week Results No Known Results Summary Purpose eClinicalWorks Submission
--- OUTSIDE RECORDS SUMMARY | 2019-10-24 09:34 | XMS REPORT ---
:1945 Author Organization eClinicalWorks Care Team Providers Name Role Phone Nazanin Dunneh Provider Role Unavailable Allergies, Adverse Reactions, Alerts Substance Reaction Event Type N.K.D.A. 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 Problem Benign prostatic hyperplasia, N40.0 Active unspecified whether lower urinary tract symptoms present Problem Atopic dermatitis, unspecified type L20.9 Active Problem Mixed hyperlipidemia E78.2 Active Problem Non-seasonal allergic rhinitis, J30.89 Active unspecified trigger Problem Essential hypertension I10 Activ e Medications Medication Code Code Instructions Start End Status Dosage System Date Date Amlodipine ND 41165203824 5 MG Orally Active 1 tab let Besylate Once a day Pravastatin ND 26463908030 40 MG Oral Active TAKE 1 TABLET Sodium (40 MG) BY MOUTH DAILY Triamcinolone ND 60605103868 0.1 % August Active 1 appl ication Acetonide Externally 29, Twice a day for 2019 7-10 days Albuterol ND 29817544839 108 (90 Base) Active 2 pu ff as Sulfate MCG/ACT needed Inhalation every 4 hrs PRN COugh, wheezing or shortness of breath Azopt ND 70117538892 1 % Ophthalmic Active 1 sakina p into Three times a affected e ye day Finasteride ND 85207107621 5 MG Orally Active 1 ta blet Once a day Loratadine ND 73698103186 10 MG Oral Active TOME U NA TABLETA TODOS LOS D? Triamcinolone ND 76588187039 0.5 % September 29, Active 1 appl ication Acetonide Externally Two 2020 times a Week Montelukast ND 47759279651 10 MG Orally Active 1 t ablet Sodium Once a day Lumigan ND 33421812690 0.01 % Active 1 drop into Ophthalmic Once affected eye a day in the evening Results No Known Results Summary Purpose eClinicalWorks Submission
--- OUTSIDE RECORDS SUMMARY | 2019-10-24 09:34 | XMS REPORT ---
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
--- OUTSIDE RECORDS SUMMARY | 2019-10-24 09:34 | XMS REPORT ---
:1945 Author Organization eClinicalWorks Care Team Providers Name Role Phone Nazanin Dunneh Provider Role Unavailable Allergies, Adverse Reactions, Alerts Substance Reaction Event Type N.K.D.A. Info Not Available Non Drug Allergy Problems Problem Type Condition Code Onset Dates Condition Statu s Assessment Unknown skin lesion L98.9 Active Assessment Allergic rhinitis J30.9 Active Assessment Atopic [...] Start End Status Dosage System Date Date Azopt [facility] 05718096307 1 % Ophthalmic Active 1 sakina p into Three times a affected e ye day Lumigan ND 15670230114 0.01 % Active 1 drop into Ophthalmic Once affected eye a day in the evening Loratadine [facility] 27360085438 10 MG Oral Active TOME U NA TABLETA TODOS LOS D? Pravastatin [facility] 15180102128 40 MG Oral Active TAKE 1 TABLET Sodium (40 MG) BY MOUTH DAILY Amlodipine ND 58032364213 5 MG Orally Active 1 tab let Besylate Once a day Albuterol ND 67508449412 108 (90 Base) Active 2 pu ff as Sulfate MCG/ACT needed Inhalation every 4 hrs PRN COugh, wheezing or shortness of breath Montelukast ND 86444042689 10 MG Orally Active 1 t ablet Sodium Once a day Triamcinolone ND 38996835245 0.5 % Active 1 appl ication Acetonide Externally Two times a Week Finasteride ND 23103106829 5 MG Orally Active 1 ta blet Once a day Results No Known Results Summary Purpose eClinicalWorks Submission
--- OUTSIDE RECORDS SUMMARY | 2019-10-24 09:34 | XMS REPORT ---
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 Problem Essential hypertension I10 Activ e Assessment Medicare annual wellness visit, Z00.00 Active subsequent Problem Benign prostatic hyperplasia, N40.0 Active unspecified whether lower urinary tract symptoms present Problem Non-seasonal allergic rhinitis, J30.89 Active unspecified trigger Medications Medication Code Code Instructions Start End Status Dosage System Date Date Azopt [facility] 71709569847 1 % Ophthalmic Active 1 sakina p into Three times a affected day eye Montelukast [facility] 11211470145 10 MG Orally Active 1 t ablet Sodium Once a day Amlodipine [facility] 15625764434 5 MG Orally Active 1 tab let Besylate Once a day Pravastatin [facility] 50158821529 40 MG Oral Active TAKE 1 Sodium TABLET (40 MG) BY MOUTH DAILY Lumigan [facility] 44229317760 0.01 % Active 1 drop into Ophthalmic Once affected a day eye in the evening Albuterol [facility] 31693335171 108 (90 Base) Active 2 pu ff as Sulfate MCG/ACT needed Inhalation every 4 hrs PRN COugh, wheezing or shortness of breath Loratadine [facility] 58956591061 10 MG Oral Active TOME U NA TABLETA TODOS LOS D? Finasteride [facility] 48855611356 5 MG Orally Active 1 ta blet Once a day Results No Known Results Summary Purpose eClinicalWorks Submission
--- OUTSIDE RECORDS SUMMARY | 2019-10-24 09:34 | XMS REPORT ---
:1945 Author Organization eClinicalWorks Care Team Providers Name Role Phone Nazanin Dunneh Provider Role Unavailable Allergies, Adverse Reactions, Alerts Substance Reaction Event Type N.K.D.A. 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 Problem Essential hypertension I10 Activ e Assessment Essential hypertension I10 Activ e Problem Benign prostatic hyperplasia, N40.0 Active unspecified whether lower urinary tract symptoms present Problem Non-seasonal allergic rhinitis, J30.89 Active unspecified trigger Assessment Elevated uric acid in blood E79.0 Active Assessment Renal insufficiency N28.9 Active Assessment Gross hematuria R31.0 Active Assessment Dermatitis L30.9 Active Assessment Benign prostatic hyperplasia, N40.0 Active unspecified whether lower urinary tract symptoms present Medications Medication Code Code Instructions Start End Status Dosage System Date Lumigan [facility] 14932296559 0.01 % Active 1 drop into Ophthalmic Once affected eye a day in the evening Loratadine [facility] 93848849758 10 MG Oral Active TOME U NA TABLETA TODOS LOS D? Finasteride ND 38330877985 5 MG Orally Active 1 ta blet Once a day Amlodipine ND 37753271121 5 MG Orally Active 1 tab let Besylate Once a day Pravastatin [facility] 11963442554 40 MG Oral Active TAKE 1 TABLET Sodium (40 MG) BY MOUTH DAILY Montelukast ND 05797903382 10 MG Orally Active 1 t ablet Sodium Once a day Azopt ND 52926337787 1 % Ophthalmic Active 1 sakina p into Three times a affected e ye day Albuterol [facility] 58057393105 108 (90 Base) Active 2 pu ff as Sulfate MCG/ACT needed Inhalation every 4 hrs PRN COugh, wheezing or shortness of breath Triamcinolone [facility] 54359845627 0.1 % August appl ication Acetonide Externally Two 29, times a Week 2019 Results No Known Results Summary Purpose eClinicalWorks Submission
[2019-10-24] MEDS ORDERED: FAMOTIDINE 20 MG/2 ML VIAL IV ONE (09:37)
[2019-10-24] MEDS ORDERED: NA CHLORIDE 0.9% 500 ML ONE (09:37)
--- NOTE | 2019-10-24 09:40 | ER ---
Nurse's Notes [facility] Name: Iam Nelson Age: 74 yrs Sex: Male : 1945 Arrival Date: 10/24/2019 Time: 08:34 Bed 13 Private MD: Diagnosis: Rash and other nonspecific skin eruption Presentation: 10/23 08:37 Chief complaint: Patient states: rash to feet that began 2 months ago, pt states aa5 "sometimes it's on my legs, my chest and my back but mostly on my feet". Pt reports rash is very itchy and he is unable to sleep at night. Pt states "I saw Dr. Dunne and gave me a cream (Triamcinolone) but it only calms the itching for about 30 minutes", "I was also supposed to see a material handler loader but it's been 2 weeks and they haven't returned my call". 08:37 Coronavirus screen: Proceed with normal triage. Patient denies a cough. Patient denies aa5 shortness of breath or difficulty breathing. Patient denies measured and/or subjective temperature greater than 100.4F prior to today's visit. Patient denies travel on a cruise ship or to a country the [facility] currently lists as an affected area. Patient denies contact with known and/or suspected case of COVID-19. Ebola Screen: Patient negative for fever greater than or equal to 101.5 degrees Fahrenheit, and additional compatible Ebola Virus Disease symptoms. 08:37 Method Of Arrival: Ambulatory aa5 08:37 Acuity: DORA 3 aa5 08:37 Initial Sepsis Screen: Does the patient meet any 2 criteria? HR > 90 bpm. Does the aa5 patient have a suspected source of infection? No. Patient's initial sepsis screen is negative. Risk Assessment: Do you want to hurt yourself or someone else? Patient reports no desire to harm self or others. 08:37 Onset of symptoms was 2019. aa5 Historical: - Allergies: 08:53 No Known Allergies; aa5 - PMHx: 08:53 Cataracts; Hypertension; Hyperlipidemia; inflammed prostate; aa5 - Immunization history:: Adult Immunizations unknown. - Social history:: Smoking status: Patient denies any tobacco usage or history of. Vital Signs: 08:37 BP 136 / 65; Pulse 90; Resp 18 S; Temp 98.4(O); Pulse Ox 99% on R/A; aa5 ED Course: 08:34 Patient arrived in ED. ag5 08:37 Arm band placed on Patient placed in an exam room, on a stretcher. aa5 08:38 Blake Mancini PA is PHCP. jm 08:38 Miguelangel Suarez MD is Attending Physician. [facility] 08:50 Erika Nunez, RN is Primary Nurse. jl7 08:52 Triage completed. aa5 08:58 Initial lab(s) drawn, by nc, sent to lab. Inserted saline lock: 20 gauge in right aa5 forearm, using aseptic technique. Administered Medications: 09:32 Drug: NS 0.9% 500 ml Route: IV; Rate: bolus; Site: right antecubital; jl7 09:32 Drug: Pepcid 20 mg Route: IVP; Site: right antecubital; jl7 Outcome: 09:40 Discharge ordered by . [facility] 10:35 Patient left the ED. [place] [employer] [facility] Signatures: Blake Mancini PA PA jmm Calderon, Audri, RN RN [place] [employer] Erika Nunez, JEREMY RN jl7 [facility]
--- NOTE | 2019-10-24 09:41 | EDPHYS ---
Physician Documentation [facility] Name: Iam Nelson Age: 74 yrs Sex: Male : 1945 Arrival Date: 10/24/2019 Time: 08:34 Bed 13 Private MD: ED Physician Miguelangel Suarez HPI: 10/23 08:49 This 74 yrs old Male presents to ER via Ambulatory with complaints of Rash. [facility] 08:49 The patient's rash thought to be caused by an unknown cause. The rash is located on the [facility] right leg and left leg. Onset: The symptoms/episode began/occurred gradually, 2 month(s) ago. Associated signs and symptoms: Pertinent positives: itching, Pertinent negatives: fever, swelling of lips, swelling of throat, swelling of tongue. The patient has not experienced similar symptoms in the past. Historical: - Allergies: 08:53 No Known Allergies; aa5 - PMHx: 08:53 Cataracts; Hypertension; Hyperlipidemia; inflammed prostate; aa5 - Immunization history:: Adult Immunizations unknown. - Social history:: Smoking status: Patient denies any tobacco usage or history of. ROS: 08:49 Constitutional: Negative for fever, chills, and weight loss, Cardiovascular: Negative jm for chest pain, palpitations, and edema, Respiratory: Negative for shortness of breath, cough, wheezing, and pleuritic chest pain. 08:49 Skin: Positive for rash. 08:49 All other systems are negative. Exam: 08:49 Constitutional: This is a well developed, well nourished patient who is awake, alert, jmm and in no acute distress. Head/Face: atraumatic. Eyes: EOMI, no conjunctival erythema appreciated ENT: Moist Mucus Membranes Neck: Trachea midline, Supple Chest/axilla: Normal chest wall appearance and motion. Cardiovascular: Regular rate and rhythm. No edema appreciated Respiratory: Normal respirations, no respiratory distress appreciated Abdomen/GI: Non distended, soft Back: Normal ROM 08:49 Skin: darkened lesions noted to the lower extremities bilaterally, crusting lesions noted to the feet bilaterally, no erythema or induration appreciated. . 08:49 Neuro: Exam negative for Orientation: is normal, Mentation: is normal, Memory: is normal. 08:49 Psych: Behavior/mood is pleasant, cooperative. Vital Signs: 08:37 BP 136 / 65; Pulse 90; Resp 18 S; Temp 98.4(O); Pulse Ox 99% on R/A; aa5 MDM: 08:49 Patient medically screened. [facility] 09:39 Data reviewed: vital signs, nurses notes. Counseling: I had a detailed discussion with haleigh the patient and/or guardian regarding: the historical points, exam findings, and any diagnostic results supporting the discharge/admit diagnosis, lab results, the need for outpatient follow up, to return to the emergency department if symptoms worsen or persist or if there are any questions or concerns that arise at home. ED course: Patient advised to follow up with dermatology. Advised to follow up with pcp and otherwise given strict return precautions. Patient understood and agrees with the plan of care. . 10/23 08:49 Order name: BMP; Complete Time: 09:24 [facility] 10/23 08:49 Order name: CBC with Diff; Complete Time: 09:16 [facility] Administered Medications: 09:32 Drug: NS 0.9% 500 ml Route: IV; Rate: bolus; Site: right antecubital; jl7 09:32 Drug: Pepcid 20 mg Route: IVP; Site: right antecubital; jl7 Disposition: 10/24/19 09:40 Discharged to Home. Impression: Rash and other nonspecific skin eruption. - Condition is Stable. - Discharge Instructions: Rash. - Prescriptions for Clotrimazole 1 % Topical Cream - Apply to affected area 1 application by TOPICAL route every 12 hours; 15 gram. Hydroxyzine HCl 25 mg Oral Tablet - take 1 tablet by ORAL route every 6 hours As needed; 30 tablet. - Medication Reconciliation Form, Thank You Letter, Antibiotic Education, Prescription Opioid Use form. - Follow up: Private Physician; When: 2 - 3 days; Reason: Recheck today's complaints, Continuance of care, Re-evaluation by your physician. Signatures: Dispatcher [employer] EDMS Blake Mancini PA PA jmm Calderon, Audri RN RN aa5 Erika Nunez RN RN jl7 Corrections: (The following items were deleted from the chart) 10:35 09:40 10/24/2019 09:40 Discharged to Home. Impression: Rash and other nonspecific skin aa5 eruption. Condition is Stable. Forms are Medication Reconciliation Form, Thank You Letter, Antibiotic Education, Prescription Opioid Use. Follow up: Private Physician; When: 2 - 3 days; Reason: Recheck today's complaints, Continuance of care, Re-evaluation by your physician. haleigh
[2019-10-24 10:40] VITALS: BP 136/65; TEMP 98.4; O2SAT 99
== END 2019-10-24 10:35 | disposition home or self-care (01) ==
LOC: ER 08:32
DX: R21 Rash and other nonspecific skin eruption (principal)
CPT/HCPCS: 85025; 80048; 36415; 96374; 99284; J7040

== ENCOUNTER 2022-12-31 14:18 | Emergency (ER) | payer OTHER ==
--- NOTE | 2022-12-31 14:57 | RAD REPORT ---
EXAM DESCRIPTION: RAD - Foot Left 3 View - 12/31/2022 2:43 pm CLINICAL HISTORY: PAIN COMPARISON: No comparisons TECHNIQUE: Left foot, 3 views. FINDINGS: No fracture, dislocation or periosteal reaction. No air or foreign body in the soft tissues. Soft tissue swelling about the dorsum of the foot. Vascul ar calcifications. IMPRESSION: Soft tissue swelling as above. No acute osseous abnormality.
--- NOTE | 2022-12-31 15:12 | ER ---
Nurse's Notes [facility] Name: Iam Nelson Age: 77 yrs Sex: Male : 1945 Arrival Date: 12/31/2022 Time: 14:18 Bed IW1 Private MD: Diagnosis: Pain in left foot Presentation: 12/31 14:30 Chief complaint: Patient states: Swelling and pain to L foot that began 2 weeks ago. ss Coronavirus screen: Client denies travel out of the [place] in the last 14 days. Ebola Screen: Patient denies exposure to infectious person. Patient denies travel to an Ebola-affected area in the 21 days before illness onset. Initial Sepsis Screen: Does the patient meet any 2 criteria? No. Patient's initial sepsis screen is negative. Does the patient have a suspected source of infection? No. Patient's initial sepsis screen is negative. Risk Assessment: Do you want to hurt yourself or someone else? Patient reports no desire to harm self or others. Onset of symptoms was December 17, 2022. 14:30 Method Of Arrival: Ambulatory ss 14:30 Acuity: DORA 3 ss Historical: - Allergies: 14:32 No Known Allergies; ss - PMHx: 14:32 Cataracts; Hyperlipidemia; Hypertension; inflammed prostate; ss Screenin:38 [facility] ED Fall Risk Assessment (Adult) History of falling in the last 3 months, ss including since admission No falls in past 3 months (0 pts). Abuse screen: Denies threats or abuse. Denies injuries from another. Nutritional screening: No deficits noted. Tuberculosis screening: Never had TB. Assessment: 15:38 Reassessment: Patient appears in no apparent distress at this time. Patient and/or ss family updated on plan of care and expected duration. Pain level reassessed. Patient is alert, oriented x 3, equal unlabored respirations, skin warm/dry/pink. Respiratory: Respiratory effort is even, unlabored. Vital Signs: 14:30 BP 148 / 77; Pulse 89; Resp 16; Temp 99(TE); Pulse Ox 100% on R/A; ss ED Course: 14:20 Patient arrived in ED. ts1 14:32 Eloise Davis FNP-C [facility] kb 14:32 Shane Beltran MD is Attending Physician. kb 14:32 Triage completed. ss 14:32 Arm band placed on right wrist. ss 14:45 Foot Left 3 View XRAY In Process Unspecified. EDMS 15:38 Maria C Bach, RN is Primary Nurse. ss 15:38 Patient has correct armband on for positive identification. ss 15:38 No provider procedures requiring assistance completed. Patient did not have IV access ss during this emergency room visit. Administered Medications: No medications were administered Medication: 15:38 VIS not applicable for this client. ss Outcome: 15:11 Discharge ordered by MD. kb 15:38 Discharged to home ambulatory. ss 15:38 Condition: good 15:38 Discharge instructions given to patient, family, Instructed on discharge instructions, follow up and referral plans. Demonstrated understanding of instructions, follow-up care. 15:39 Patient left the ED. ss Signatures: Dispatcher [employer] EDOK Eloise Davis, SPECIAL SERVICE REPRESENTATIVE-C SPECIAL SERVICE REPRESENTATIVE-Maria C Clemente, RN RN Meggan Perry, PAS PAS ts1
--- NOTE | 2022-12-31 15:12 | EDPHYS ---
Physician Documentation [facility] Name: Iam Nelson Age: 77 yrs Sex: Male : 1945 Arrival Date: 12/31/2022 Time: 14:18 Bed IW1 Private MD: ED Physician Shane Beltran HPI: 12/31 15:09 This 77 yrs old Male presents to ER via Ambulatory with complaints of Foot kb Injury. 15:09 The patient presents with pain, swelling, tenderness. The complaints affect the left kb foot. Context: The problem was sustained at home, resulted from an unknown cause, the patient can fully bear weight, the patient is able to ambulate. Onset: The symptoms/episode began/occurred 2 week(s) ago. Modifying factors: The symptoms are alleviated by nothing, the symptoms are aggravated by nothing. Associated signs and symptoms: Pertinent positives: swelling, Pertinent negatives: calf tenderness, fever, nausea, numbness, rash, tingling, vomiting, warmth, weakness. Severity of symptoms: At their worst the symptoms were mild, moderate, in the emergency department the symptoms are unchanged. The patient has not experienced similar symptoms in the past. The patient has not recently seen a physician. Pt reports left lateral foot pain for 2 weeks. Denies injury or trauma. Reports intermittent swelling. Historical: - Allergies: 14:32 No Known Allergies; ss - PMHx: 14:32 Cataracts; Hyperlipidemia; Hypertension; inflammed prostate; ss ROS: 15:08 Constitutional: Negative for fever, chills, and weight loss. kb 15:08 MS/extremity: Positive for pain, swelling, of the lateral side of left foot. 15:08 All other systems are negative. Exam: 15:08 Constitutional: This is a well developed, well nourished patient who is awake, alert, kb and in no acute distress. Head/Face: Normocephalic, atraumatic. ENT: Moist Mucous membranes Respiratory: Respirations even and unlabored. No increased work of breathing. Talking in full sentences Skin: Warm, dry with normal turgor. Normal color. Neuro: Awake and alert, GCS 15, oriented to person, place, time, and situation. Moves all extremities. Normal gait. 15:08 Musculoskeletal/extremity: Extremities: grossly normal except: noted in the lateral side of left foot: pain, swelling, tenderness, ROM: intact in all extremities, Circulation is intact in all extremities. Sensation intact. Weight bearing: able to fully bear weight. Vital Signs: 14:30 BP 148 / 77; Pulse 89; Resp 16; Temp 99(TE); Pulse Ox 100% on R/A; ss MDM: 14:32 Patient medically screened. kb 15:08 Differential diagnosis: dislocation, closed fracture, contusion, tendonitis. Data kb reviewed: vital signs, nurses notes. Historians other than the Patient: Daughter/Son: son. Counseling: I had a detailed discussion with the patient and/or guardian regarding: the historical points, exam findings, and any diagnostic results supporting the discharge/admit diagnosis, radiology results, the need for outpatient follow up, a family practitioner, a orthopedic surgeon, to return to the emergency department if symptoms worsen or persist or if there are any questions or concerns that arise at home. 12/31 14:32 Order name: Foot Left 3 View XRAY; Complete Time: 15:04 kb Administered Medications: No medications were administered Disposition: 16:47 Co-signature as Attending Physician, Shane Beltran MD I agree with the assessment and kdr plan of care. Disposition Summary: 12/31/22 15:11 Discharge Ordered Location: Home kb Condition: Stable kb Diagnosis - Pain in left foot kb Followup: kb - With: Emergency Department - When: As needed - Reason: Worsening of condition Followup: kb - With: Private Physician - When: 2 - 3 days - Reason: Recheck today's complaints, Continuance of care, Re-evaluation by your physician Discharge Instructions: - Discharge Summary Sheet kb - Musculoskeletal Pain kb - Foot Pain kb Forms: - Medication Reconciliation Form kb - Thank You Letter kb - Antibiotic Education kb - Prescription Opioid Use kb - Patient Portal Instructions kb - Leadership Thank You Letter kb Signatures: Dispatcher [employer] Eloise Dumas, POWDER TRUCK DRIVER-C SANDY-Shane Tavarez MD MD kdr Blanchard, Shelby, JEREMY RN ss
--- OUTSIDE RECORDS SUMMARY | 2022-12-31 15:25 | XMS REPORT | Continuity of Care Document ---
:1945 Author Organization [facility] t Address [address] [facility] [address] [place] [address] Care Team Providers Name Role Phone Harshil Dunne Attending Clinician Unavailable Payers Payer Name Policy Type Policy Number Effective Date Expiration Date Fletcher jarrell [facility] 53 [id number] 2020 [facility] ADVANTAGE 00:00:[address] [facility] MEDICAID MC [id number] [facility] MEDICAID MC [id number] [facility] Problems Condition Condition Condition Status Onset Resolution Last Treating Co mments Source Name Details Category Date Date Treatment Clinician Date 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) [facility] [id number] Essential Problem Comm on hypertensi [facility] [id number] Mixed Problem Common hyperlipid Spirit emia - [facility] [id number] Non-season Problem Com mon [facility] allergic - [id number] Benign Problem Common prostatic [facility]plasi [facility] present [id number] 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 Social History Social Habit Start Date Stop Date Quantity Comments Source History of Tobacco Use Co mmon [facility] Sex Assigned At Com mon [facility] Smoking Status Start Date Stop Date Source Never Smoker Common [facility] Medications Ordered Filled Start Stop Current Ordering Indication Dosage Frequency Signature Comments Components Source Medication Medication Date Date Medication? Clinician (SIG) Name Name Rory Valadez 2021-05 No 40mg Common (Triamcinol (Triamcinol 0-11 S pirit one) one) 00:00: - [facility] Rory Valadez 2021-05 No 40mg Common (Triamcinol (Triamcinol 0-11 S pirit one) one) 00:00: - [facility] Rory Valadez 2021-05 No 40mg Common (Triamcinol (Triamcinol 0-11 S pirit one) one) 00:00: - [facility] Rory Valadez 2021-05 No 40mg Common (Triamcinol (Triamcinol 0-11 S pirit one) one) 00:00: - [facility] Rory Valadez 2021-05 No 40mg Common (Triamcinol (Triamcinol 0-11 S pirit one) one) 00:00: - [facility] Rory Valadez No 40mg Common (Triamcinol (Triamcinol 9-16 S pirit one) one) 00:00: - [facility] Fluticasone Fluticasone No 1{spray QD Fluticason Propionate Propionate 02-04 _in_eac e 50 MCG/ACT 50 MCG/ACT 00:00: h_nostr Propionate 00 il} 50 MCG/ACT Rory Valadez No 40mg Common (Triamcinol (Triamcinol 9-16 S pirit one) one) 00:00: - [facility] Rory Valadez No 40mg Common (Triamcinol (Triamcinol 9-16 S pirit one) one) 00:00: - [facility] Rory Valadez No 40mg Common (Triamcinol (Triamcinol 9-16 S pirit one) one) 00:00: - [facility] Rory Winnalog 2021-0 No 40mg Common (Triamcinol (Triamcinol 9-16 S pirit one) one) 00:00: - [facility] Rory Winnalog 2021-0 No 40mg Common (Triamcinol (Triamcinol 9-16 S pirit one) one) 00:00: - [facility] Rory Winnalog 2021-0 No 40mg Common (Triamcinol (Triamcinol 9-16 S pirit one) one) 00:00: - [facility] Rory Winnalog 2021-0 No 40mg Common (Triamcinol (Triamcinol 9-16 S pirit one) one) 00:00: - [facility] Rory Winnalog 2021-0 No 40mg Common (Triamcinol (Triamcinol 9-16 S pirit one) one) 00:00: - [facility] Fluticasone Fluticasone 0 No 1{spray QD Fluticason Propionate Propionate 2-14 _in_eac e 50 MCG/ACT 50 MCG/ACT 00:00: h_nostr Propionate 00 il} 50 MCG/ACT Fluticasone Fluticasone 0 No 1{spray QD Fluticason Propionate Propionate 2-14 _in_eac e 50 MCG/ACT 50 MCG/ACT 00:00: h_nostr Propionate 00 il} 50 MCG/ACT Fluticasone Fluticasone 2021-0 No 1{spray QD Fluticason Propionate Propionate 2-14 _in_eac e 50 MCG/ACT 50 MCG/ACT 00:00: h_nostr Propionate 00 il} 50 MCG/ACT Fluticasone Fluticasone 2021-0 No 1{spray QD Fluticason Propionate Propionate 2-14 _in_eac e 50 MCG/ACT 50 MCG/ACT 00:00: h_nostr Propionate 00 il} 50 MCG/ACT Fluticasone Fluticasone 2021-0 No 1{spray QD Fluticason Propionate Propionate 2-14 _in_eac e 50 MCG/ACT 50 MCG/ACT 00:00: h_nostr Propionate 00 il} 50 MCG/ACT Kenalog Kenalog No 40mg Common (Triamcinol (Triamcinol 9-27 S pirit one) one) 00:00: - [facility] Rory Kenalog 0 No 40mg Common (Triamcinol (Triamcinol 9-27 S pirit one) one) 00:00: - [facility] Rory Kenstella No 40mg Common (Triamcinol (Triamcinol 9-27 S pirit one) one) 00:00: - [facility] Rory Kenstella No 40mg Common (Triamcinol (Triamcinol 9-27 S pirit one) one) 00:00: - [facility] No 40mg Common (Triamcinol (Triamcinol 9-27 S pirit one) one) 00:00: - [facility] No 40mg Common (Triamcinol (Triamcinol 9-27 S pirit one) one) 00:00: - [facility] Kenstella 0 No 40mg Common (Triamcinol (Triamcinol 9-27 S pirit one) one) 00:00: - [facility] Rory Kenalog 0 No 40mg Common (Triamcinol (Triamcinol 9-27 S pirit one) one) 00:00: - [facility] Kenstella 0 No 40mg Common (Triamcinol (Triamcinol 9-27 S pirit one) one) 00:00: - [facility] Kenstella Kenstella 0 No 40mg Common (Triamcinol (Triamcinol 9-27 S pirit one) one) 00:00: - [facility] Kenalog 0 No 40mg Common (Triamcinol (Triamcinol 9-27 S pirit one) one) 00:00: - [facility] Telmisartan Telmisartan No 1{table QD Telmisarta 20 MG 20 MG 2-10 t} n 20 MG 00:00: 00 Telmisartan Telmisartan 2021-0 No 1{table QD Telmisarta 20 MG 20 MG 2-10 t} n 20 MG 00:00: 00 Telmisartan Telmisartan 2021-0 No 1{table QD Telmisarta 20 MG 20 MG 2-10 t} n 20 MG 00:00: 00 Telmisartan Telmisartan 2021-0 No 1{table QD Telmisarta 20 MG 20 MG 2-10 t} n 20 MG 00:00: 00 Telmisartan Telmisartan 2021-0 No 1{table QD Telmisarta 20 MG 20 MG 2-10 t} n 20 MG 00:00: 00 Telmisartan Telmisartan 1-0 No 1{table QD Telmisarta 20 MG 20 MG 2-10 t} n 20 MG 00:00: 00 Telmisartan Telmisartan 1-0 No 1{table QD Telmisarta 20 MG 20 MG 2-10 t} n 20 MG 00:00: 00 Telmisartan Telmisartan 2021-0 No 1{table QD Telmisarta 20 MG 20 MG 2-10 t} n 20 MG 00:00: 00 Telmisartan Telmisartan 2021-0 No 1{table QD Telmisarta 20 MG 20 MG 2-10 t} n 20 MG 00:00: 00 Telmisartan Telmisartan 2021-0 No 1{table QD Telmisarta 20 MG 20 MG 2-10 t} n 20 MG 00:00: 00 Telmisartan Telmisartan 2021-0 No 1{table QD Telmisarta 20 MG 20 MG 2-10 t} n 20 MG 00:00: 00 Telmisartan Telmisartan 2021-0 No 1{table QD Telmisarta 20 MG 20 MG 2-10 t} n 20 MG 00:00: 00 Telmisartan Telmisartan 1-0 No 1{table QD Telmisarta 20 MG 20 MG 2-10 t} n 20 MG 00:00: 00 Telmisartan Telmisartan 2020-0 No 1{table QD Telmisarta 20 MG 20 MG 2-10 t} n 20 MG 00:00: 00 Telmisartan Telmisartan 2020-0 No 1{table QD Telmisarta 20 MG 20 MG 2-10 t} n 20 MG 00:00: 00 Telmisartan Telmisartan 2020-0 No 1{table QD Telmisarta 20 MG 20 MG 2-10 t} n 20 MG 00:00: 00 Telmisartan Telmisartan 2020-0 No 1{table QD Telmisarta 20 MG 20 MG 2-10 t} n 20 MG 00:00: 00 [facility] Kenalog 2020-0 No 40mg Common (Triamcinol (Triamcinol 1-21 S pirit one) one) 00:00: - [facility] Kenalog 2020-0 No 40mg Common (Triamcinol (Triamcinol 1-21 S pirit one) one) 00:00: - [facility] Kenalog 2020-0 No 40mg Common (Triamcinol (Triamcinol 1-21 S pirit one) one) 00:00: - [facility] Kenalog Kenalog 2020-0 No 40mg Common (Triamcinol (Triamcinol 1-21 S pirit one) one) 00:00: - [facility] Kenalog Kenalog 2020-0 No 40mg Common (Triamcinol (Triamcinol 1-21 S pirit one) one) 00:00: - [facility] Kenalog Kenalog 2020-0 No 40mg Common (Triamcinol (Triamcinol 1-21 S pirit one) one) 00:00: - [facility] Kenalog Kenalog 2020-0 No 40mg Common (Triamcinol (Triamcinol 1-21 S pirit one) one) 00:00: - [facility] Kenalog Kenalog 2020-0 No 40mg Common (Triamcinol (Triamcinol 1-21 S pirit one) one) 00:00: - [facility] Rory Valadez 2020-0 No 40mg Common (Triamcinol (Triamcinol 1-21 S pirit one) one) 00:00: - [facility] Rory Valadez 2020-0 No 40mg Common (Triamcinol (Triamcinol 1-21 S pirit one) one) 00:00: - [facility] Rory 0 No 40mg Common (Triamcinol (Triamcinol 1-21 S pirit one) one) 00:00: - [facility] Silodosin 8 Silodosin 8 2019-05 No 1{capsu QD Silodosin MG MG 2-08 le_with 8 MG 00:00: _a_meal 00 } Silodosin 8 Silodosin 8 2019-05 No 1{capsu QD Silodosin MG MG 2-08 le_with 8 MG 00:00: _a_meal 00 } Silodosin 8 Silodosin 8 2019-05 No 1{capsu QD Silodosin MG MG 2-08 le_with 8 MG 00:00: _a_meal 00 } Silodosin 8 Silodosin 8 2019- No 1{capsu QD Silodosin MG MG 2-08 le_with 8 MG 00:00: _a_meal 00 } Silodosin 8 Silodosin 8 2019- No 1{capsu QD Silodosin MG MG 2-08 le_with 8 MG 00:00: _a_meal 00 } Silodosin 8 Silodosin 8 2019- No 1{capsu QD Silodosin MG MG 2-08 le_with 8 MG 00:00: _a_meal 00 } Silodosin 8 Silodosin 8 2019- No 1{capsu QD Silodosin MG MG 2-08 le_with 8 MG 00:00: _a_meal 00 } Silodosin 8 Silodosin 8 2019- No 1{capsu QD Silodosin MG MG 2-08 le_with 8 MG 00:00: _a_meal 00 } Silodosin 8 Silodosin 8 2019-05 No 1{capsu QD Silodosin MG MG 2-08 le_with 8 MG 00:00: _a_meal 00 } Silodosin 8 Silodosin 8 2019-05 No 1{capsu QD Silodosin MG MG 2-08 le_with 8 MG 00:00: _a_meal 00 } Silodosin 8 Silodosin 8 2019-05 No 1{capsu QD Silodosin MG MG 2-08 le_with 8 MG 00:00: _a_meal 00 } Silodosin 8 Silodosin 8 2019-05 No 1{capsu QD Silodosin MG MG 2-08 le_with 8 MG 00:00: _a_meal 00 } Silodosin 8 Silodosin 8 2019-05 No 1{capsu QD Silodosin MG MG 2-08 le_with 8 MG 00:00: _a_meal 00 } Silodosin 8 Silodosin 8 2019-05 No 1{capsu QD Silodosin MG MG 2-08 le_with 8 MG 00:00: _a_meal 00 } Kenalog Kenalog 2019-05 No 40mg Common (Triamcinol (Triamcinol 0-08 S pirit one) one) 00:00: - [facility] Kenalog Kenalog 2019-05 No 40mg Common (Triamcinol (Triamcinol 0-08 S pirit one) one) 00:00: - [facility] Kenalog Kenalog 2019-05 No 40mg Common (Triamcinol (Triamcinol 0-08 S pirit one) one) 00:00: - [facility] Kenalog Kenalog 2019-05 No 40mg Common (Triamcinol (Triamcinol 0-08 S pirit one) one) 00:00: - [facility] Kenalog Kenalog 2019- No 40mg Common (Triamcinol (Triamcinol 0-08 S pirit one) one) 00:00: - [facility] Kenalog Kenalog 2019- No 40mg Common (Triamcinol (Triamcinol 0-08 S pirit one) one) 00:00: - [facility] Kenalog Kenalog 2019-05 No 40mg Common (Triamcinol (Triamcinol 0-08 S pirit one) one) 00:00: - [facility] Kenalog Kenalog 2019-05 No 40mg Common (Triamcinol (Triamcinol 0-08 S pirit one) one) 00:00: - [facility] Kenalog Kenalog 2019-05 No 40mg Common (Triamcinol (Triamcinol 0-08 S pirit one) one) 00:00: - [facility] Kenalog Kenalog 2019-05 No 40mg Common (Triamcinol (Triamcinol 0-08 S pirit one) one) 00:00: - [facility] Kenalog Kenalog 2019-05 No 40mg Common (Triamcinol (Triamcinol 0-08 S pirit one) one) 00:00: - [facility] Montelukast Montelukast Yes Harshil 1 tablet Common Sodium Sodium [facility] Yes Harshil 1 drop Commo n Dunne into Spirit affected - [facility]I eye in the [facility] Albuterol Albuterol Yes Harshil 2 puff as Common Sulfate Sulfate Udnne needed [facility] Azopt Azopt Yes Harshil 1 drop Common Dunne into Spirit affected - CHI eye [facility] Yes Harshil 1 Common ne ne Dunne applicatio Spirit Acetonide Acetonide [facility] Loratadine Loratadine Yes Harshil TOME LAKHWINDER Common Dunne TABLETA Spirit TODOS LOS - CHI D? [facility] Amlodipine Amlodipine Yes Harshil 1 tablet Common Besylate Besylate Dunne [facility] Yes Harshil 1 Common ne ne Dunne applicatio Spirit Acetonide Acetonide [facility] Meclizine Meclizine Yes Harshil 1 tablet Common HCl HCl Dunne as needed [facility] Pravastatin Pravastatin Yes Harshil TAKE 1 Common Sodium Sodium Dunne TABLET (40 Spir it MG) BY - CHI MOUTH [facility] Finasteride Finasteride Yes Harshil 1 tablet Common Dunne Spirit [facility] Lumigan Lumigan No 1{drop_ QD Lumigan 0.01 % 0.01 % into_af 0.01 % fected_ eye_in_ the_eve sharon} Pravastatin Pravastatin No QD Pravastati Sodium 40 Sodium 40 n Sodium MG MG 40 MG Albuterol Albuterol No 2{puff_ Albuterol Sulfate 108 Sulfate 108 as_need Sulfate (90 Base) (90 Base) ed} 108 (90 MCG/ACT MCG/ACT Base) MCG/ACT Meclizine Meclizine No 1{table Meclizine HCl 25 MG HCl 25 MG t_as_ne HCl 25 MG eded} Azopt 1 % Azopt 1 % No 1{drop_ TID Azopt 1 % into_af fected_ eye} Finasteride Finasteride No Finasterid 5 MG 5 MG e 5 MG amLODIPine amLODIPine No 1{table QD amLODIPine Besylate 5 Besylate 5 t} Besylate 5 MG MG MG Pravastatin Pravastatin No Pravastati Sodium 40 Sodium 40 n Sodium MG MG 40 MG Triamcinolo Triamcinolo No 1{appli Triamcinol ne ne cation} one Acetonide Acetonide Acetonide 0.1 % 0.1 % 0.1 % Triamcinolo Triamcinolo No 1{appli Triamcinol ne ne cation} one Acetonide Acetonide Acetonide 0.5 % 0.5 % 0.5 % Montelukast Montelukast No 1{table QD Montelukas Sodium 10 Sodium 10 t} t Sodium MG MG 10 MG amLODIPine amLODIPine No amLODIPine Besylate 5 Besylate 5 Besylate 5 MG MG MG Loratadine Loratadine No QD Loratadine 10 MG 10 MG 10 MG Montelukast Montelukast No 1{table QD Montelukas Sodium 10 Sodium 10 t} t Sodium MG MG 10 MG Lumigan Lumigan No 1{drop_ QD Lumigan 0.01 % 0.01 % into_af 0.01 % fected_ eye_in_ the_eve [place]} Pravastatin Pravastatin No QD Pravastati Sodium 40 Sodium 40 n Sodium MG MG 40 MG Albuterol Albuterol No 2{puff_ Albuterol Sulfate 108 Sulfate 108 as_need Sulfate (90 Base) (90 Base) ed} 108 (90 MCG/ACT MCG/ACT Base) MCG/ACT Meclizine Meclizine No 1{table Meclizine HCl 25 MG HCl 25 MG t_as_ne HCl 25 MG eded} Pravastatin Pravastatin No Pravastati Sodium 40 Sodium 40 n Sodium MG MG 40 MG Loratadine Loratadine No QD Loratadine 10 MG 10 MG 10 MG Montelukast Montelukast No 1{table QD Montelukas Sodium 10 Sodium 10 t} t Sodium MG MG 10 MG amLODIPine amLODIPine No amLODIPine Besylate 5 Besylate 5 Besylate 5 MG MG MG Albuterol Albuterol No 2{puff_ Albuterol Sulfate 108 Sulfate 108 as_need Sulfate (90 Base) (90 Base) ed} 108 (90 MCG/ACT MCG/ACT Base) MCG/ACT amLODIPine amLODIPine No 1{table QD amLODIPine Besylate 5 Besylate 5 t} Besylate 5 MG MG MG Montelukast Montelukast No 1{table QD Montelukas Sodium 10 Sodium 10 t} t Sodium MG MG 10 MG Meclizine Meclizine No 1{table Meclizine HCl 25 MG HCl 25 MG t_as_ne HCl 25 MG eded} Finasteride Finasteride No Finasterid 5 MG 5 MG e 5 MG Lumigan Lumigan No 1{drop_ QD Lumigan 0.01 % 0.01 % into_af 0.01 % fected_ eye_in_ the_eve [place]} Azopt 1 % Azopt 1 % No 1{drop_ TID Azopt 1 % into_af fected_ eye} Triamcinolo Triamcinolo No 1{appli Triamcinol ne ne cation} one Acetonide Acetonide Acetonide 0.5 % 0.5 % 0.5 % Triamcinolo Triamcinolo No 1{appli Triamcinol ne ne cation} one Acetonide Acetonide Acetonide 0.1 % 0.1 % 0.1 % Pravastatin Pravastatin No Pravastati Sodium 40 Sodium 40 n Sodium MG MG 40 MG Loratadine Loratadine No QD Loratadine 10 MG 10 MG 10 MG Montelukast Montelukast No 1{table QD Montelukas Sodium 10 Sodium 10 t} t Sodium MG MG 10 MG amLODIPine amLODIPine No amLODIPine Besylate 5 Besylate 5 Besylate 5 MG MG MG Albuterol Albuterol No 2{puff_ Albuterol Sulfate 108 Sulfate 108 as_need Sulfate (90 Base) (90 Base) ed} 108 (90 MCG/ACT MCG/ACT Base) MCG/ACT amLODIPine amLODIPine No 1{table QD amLODIPine Besylate 5 Besylate 5 t} Besylate 5 MG MG MG Montelukast Montelukast No 1{table QD Montelukas Sodium 10 Sodium 10 t} t Sodium MG MG 10 MG Meclizine Meclizine No 1{table Meclizine HCl 25 MG HCl 25 MG t_as_ne HCl 25 MG eded} Finasteride Finasteride No Finasterid 5 MG 5 MG e 5 MG Lumigan Lumigan No 1{drop_ QD Lumigan 0.01 % 0.01 % into_af 0.01 % fected_ eye_in_ the_eve [place]} Azopt 1 % Azopt 1 % No 1{drop_ TID Azopt 1 % into_af fected_ eye} Triamcinolo Triamcinolo No 1{appli Triamcinol ne ne cation} one Acetonide Acetonide Acetonide 0.5 % 0.5 % 0.5 % Triamcinolo Triamcinolo No 1{appli Triamcinol ne ne cation} one Acetonide Acetonide Acetonide 0.1 % 0.1 % 0.1 % Montelukast Montelukast No 1{table QD Montelukas Sodium 10 Sodium 10 t} t Sodium MG MG 10 MG Triamcinolo Triamcinolo No 1{appli Triamcinol ne ne cation} one Acetonide Acetonide Acetonide 0.5 % 0.5 % 0.5 % Montelukast Montelukast No 1{table QD Montelukas Sodium 10 Sodium 10 t} t Sodium MG MG 10 MG Lumigan Lumigan No 1{drop_ QD Lumigan 0.01 % 0.01 % into_af 0.01 % fected_ eye_in_ the_eve [place]} Pravastatin Pravastatin No QD Pravastati Sodium 40 Sodium 40 n Sodium MG MG 40 MG amLODIPine amLODIPine No amLODIPine Besylate 5 Besylate 5 Besylate 5 MG MG MG Pravastatin Pravastatin No Pravastati Sodium 40 Sodium 40 n Sodium MG MG 40 MG Albuterol Albuterol No 2{puff_ Albuterol Sulfate 108 Sulfate 108 as_need Sulfate (90 Base) (90 Base) ed} 108 (90 MCG/ACT MCG/ACT Base) MCG/ACT Azopt 1 % Azopt 1 % No 1{drop_ TID Azopt 1 % into_af fected_ eye} Loratadine Loratadine No QD Loratadine 10 MG 10 MG 10 MG amLODIPine amLODIPine No 1{table QD amLODIPine Besylate 5 Besylate 5 t} Besylate 5 MG MG MG Triamcinolo Triamcinolo No 1{appli Triamcinol ne ne cation} one Acetonide Acetonide Acetonide 0.1 % 0.1 % 0.1 % Finasteride Finasteride No Finasterid 5 MG 5 MG e 5 MG Meclizine Meclizine No 1{table Meclizine HCl 25 MG HCl 25 MG t_as_ne HCl 25 MG eded} Lumigan Lumigan No 1{drop_ QD Lumigan 0.01 % 0.01 % into_af 0.01 % fected_ eye_in_ the_eve [place]} Triamcinolo Triamcinolo No 1{appli Triamcinol ne ne cation} one Acetonide Acetonide Acetonide 0.5 % 0.5 % 0.5 % amLODIPine amLODIPine No 1{table QD amLODIPine Besylate 5 Besylate 5 t} Besylate 5 MG MG MG Albuterol Albuterol No 2{puff_ Albuterol Sulfate 108 Sulfate 108 as_need Sulfate (90 Base) (90 Base) ed} 108 (90 MCG/ACT MCG/ACT Base) MCG/ACT Montelukast Montelukast No 1{table QD Montelukas Sodium 10 Sodium 10 t} t Sodium MG MG 10 MG Meclizine Meclizine No 1{table Meclizine HCl 25 MG HCl 25 MG t_as_ne HCl 25 MG eded} Azopt 1 % Azopt 1 % No 1{drop_ TID Azopt 1 % into_af fected_ eye} Montelukast Montelukast No 1{table QD Montelukas Sodium 10 Sodium 10 t} t Sodium MG MG 10 MG Pravastatin Pravastatin No Pravastati Sodium 40 Sodium 40 n Sodium MG MG 40 MG Loratadine Loratadine No QD Loratadine 10 MG 10 MG 10 MG Finasteride Finasteride No Finasterid 5 MG 5 MG e 5 MG amLODIPine amLODIPine No amLODIPine Besylate 5 Besylate 5 Besylate 5 MG MG MG Triamcinolo Triamcinolo No 1{appli Triamcinol ne ne cation} one Acetonide Acetonide Acetonide 0.1 % 0.1 % 0.1 % Triamcinolo Triamcinolo No 1{appli Triamcinol ne ne cation} one Acetonide Acetonide Acetonide 0.5 % 0.5 % 0.5 % Albuterol Albuterol No 2{puff_ Albuterol Sulfate 108 Sulfate 108 as_need Sulfate (90 Base) (90 Base) ed} 108 (90 MCG/ACT MCG/ACT Base) MCG/ACT Meclizine Meclizine No 1{table Meclizine HCl 25 MG HCl 25 MG t_as_ne HCl 25 MG eded} Pravastatin Pravastatin No Pravastati Sodium 40 Sodium 40 n Sodium MG MG 40 MG Finasteride Finasteride No Finasterid 5 MG 5 MG e 5 MG Azopt 1 % Azopt 1 % No 1{drop_ TID Azopt 1 % into_af fected_ eye} Montelukast Montelukast No 1{table QD Montelukas Sodium 10 Sodium 10 t} t Sodium MG MG 10 MG Loratadine Loratadine No QD Loratadine 10 MG 10 MG 10 MG Triamcinolo Triamcinolo No 1{appli Triamcinol ne ne cation} one Acetonide Acetonide Acetonide 0.1 % 0.1 % 0.1 % amLODIPine amLODIPine No amLODIPine Besylate 5 Besylate 5 Besylate 5 MG MG MG Lumigan Lumigan No 1{drop_ QD Lumigan 0.01 % 0.01 % into_af 0.01 % fected_ eye_in_ the_eve [place]} Triamcinolo Triamcinolo No 1{appli Triamcinol ne ne cation} one Acetonide Acetonide Acetonide 0.5 % 0.5 % 0.5 % Albuterol Albuterol No 2{puff_ Albuterol Sulfate 108 Sulfate 108 as_need Sulfate (90 Base) (90 Base) ed} 108 (90 MCG/ACT MCG/ACT Base) MCG/ACT Meclizine Meclizine No 1{table Meclizine HCl 25 MG HCl 25 MG t_as_ne HCl 25 MG eded} Pravastatin Pravastatin No Pravastati Sodium 40 Sodium 40 n Sodium MG MG 40 MG Finasteride Finasteride No Finasterid 5 MG 5 MG e 5 MG Azopt 1 % Azopt 1 % No 1{drop_ TID Azopt 1 % into_af fected_ eye} Montelukast Montelukast No 1{table QD Montelukas Sodium 10 Sodium 10 t} t Sodium MG MG 10 MG Loratadine Loratadine No QD Loratadine 10 MG 10 MG 10 MG Triamcinolo Triamcinolo No 1{appli Triamcinol ne ne cation} one Acetonide Acetonide Acetonide 0.1 % 0.1 % 0.1 % amLODIPine amLODIPine No amLODIPine Besylate 5 Besylate 5 Besylate 5 MG MG MG Lumigan Lumigan No 1{drop_ QD Lumigan 0.01 % 0.01 % into_af 0.01 % fected_ eye_in_ the_eve [place]} Triamcinolo Triamcinolo No 1{appli Triamcinol ne ne cation} one Acetonide Acetonide Acetonide 0.5 % 0.5 % 0.5 % Albuterol Albuterol No 2{puff_ Albuterol Sulfate 108 Sulfate 108 as_need Sulfate (90 Base) (90 Base) ed} 108 (90 MCG/ACT MCG/ACT Base) MCG/ACT Meclizine Meclizine No 1{table Meclizine HCl 25 MG HCl 25 MG t_as_ne HCl 25 MG eded} Pravastatin Pravastatin No Pravastati Sodium 40 Sodium 40 n Sodium MG MG 40 MG Finasteride Finasteride No Finasterid 5 MG 5 MG e 5 MG Azopt 1 % Azopt 1 % No 1{drop_ TID Azopt 1 % into_af fected_ eye} Montelukast Montelukast No 1{table QD Montelukas Sodium 10 Sodium 10 t} t Sodium MG MG 10 MG Loratadine Loratadine No QD Loratadine 10 MG 10 MG 10 MG Triamcinolo Triamcinolo No 1{appli Triamcinol ne ne cation} one Acetonide Acetonide Acetonide 0.1 % 0.1 % 0.1 % amLODIPine amLODIPine No amLODIPine Besylate 5 Besylate 5 Besylate 5 MG MG MG Lumigan Lumigan No 1{drop_ QD Lumigan 0.01 % 0.01 % into_af 0.01 % fected_ eye_in_ the_eve sharon} Loratadine Loratadine No QD Loratadine 10 MG 10 MG 10 MG Triamcinolo Triamcinolo No 1{appli Triamcinol ne ne cation} one Acetonide Acetonide Acetonide 0.5 % 0.5 % 0.5 % Montelukast Montelukast No 1{table QD Montelukas Sodium 10 Sodium 10 t} t Sodium MG MG 10 MG Lumigan Lumigan No 1{drop_ QD Lumigan 0.01 % 0.01 % into_af 0.01 % fected_ eye_in_ the_eve sharon} Montelukast Montelukast No Montelukas Sodium 10 Sodium 10 t Sodium MG MG 10 MG Pravastatin Pravastatin No Pravastati Sodium 40 Sodium 40 n Sodium MG MG 40 MG amLODIPine amLODIPine No amLODIPine Besylate 5 Besylate 5 Besylate 5 MG MG MG Pravastatin Pravastatin No QD Pravastati Sodium 40 Sodium 40 n Sodium MG MG 40 MG amLODIPine amLODIPine No 1{table QD amLODIPine Besylate 5 Besylate 5 t} Besylate 5 MG MG MG Triamcinolo Triamcinolo No 1{appli Triamcinol ne ne cation} one Acetonide Acetonide Acetonide 0.1 % 0.1 % 0.1 % Albuterol Albuterol No 2{puff_ Albuterol Sulfate 108 Sulfate 108 as_need Sulfate (90 Base) (90 Base) ed} 108 (90 MCG/ACT MCG/ACT Base) MCG/ACT Meclizine Meclizine No 1{table Meclizine HCl 25 MG HCl 25 MG t_as_ne HCl 25 MG eded} Azopt 1 % Azopt 1 % No 1{drop_ TID Azopt 1 % into_af fected_ eye} Finasteride Finasteride No Finasterid 5 MG 5 MG e 5 MG amLODIPine amLODIPine No amLODIPine Besylate 5 Besylate 5 Besylate 5 MG MG MG Montelukast Montelukast No Montelukas Sodium 10 Sodium 10 t Sodium MG MG 10 MG Triamcinolo Triamcinolo No 1{appli Triamcinol ne ne cation} one Acetonide Acetonide Acetonide 0.1 % 0.1 % 0.1 % Azopt 1 % Azopt 1 % No 1{drop_ TID Azopt 1 % into_af fected_ eye} Finasteride Finasteride No Finasterid 5 MG 5 MG e 5 MG Triamcinolo Triamcinolo No 1{appli Triamcinol ne ne cation} one Acetonide Acetonide Acetonide 0.5 % 0.5 % 0.5 % Pravastatin Pravastatin No Pravastati Sodium 40 Sodium 40 n Sodium MG MG 40 MG amLODIPine amLODIPine No 1{table QD amLODIPine Besylate 5 Besylate 5 t} Besylate 5 MG MG MG Pravastatin Pravastatin No QD Pravastati Sodium 40 Sodium 40 n Sodium MG MG 40 MG Meclizine Meclizine No 1{table Meclizine HCl 25 MG HCl 25 MG t_as_ne HCl 25 MG eded} Albuterol Albuterol No 2{puff_ Albuterol Sulfate 108 Sulfate 108 as_need Sulfate (90 Base) (90 Base) ed} 108 (90 MCG/ACT MCG/ACT Base) MCG/ACT Loratadine Loratadine No QD Loratadine 10 MG 10 MG 10 MG Lumigan Lumigan No 1{drop_ QD Lumigan 0.01 % 0.01 % into_af 0.01 % fected_ eye_in_ the_eve [place]} Montelukast Montelukast No 1{table QD Montelukas Sodium 10 Sodium 10 t} t Sodium MG MG 10 MG amLODIPine amLODIPine No amLODIPine Besylate 5 Besylate 5 Besylate 5 MG MG MG Montelukast Montelukast No Montelukas Sodium 10 Sodium 10 t Sodium MG MG 10 MG Finasteride Finasteride No Finasterid 5 MG 5 MG e 5 MG Fluticasone Fluticasone No Fluticason Propionate Propionate e 50 MCG/ACT 50 MCG/ACT Propionate 50 MCG/ACT Azopt 1 % Azopt 1 % No 1{drop_ TID Azopt 1 % into_af fected_ eye} Triamcinolo Triamcinolo No 1{appli Triamcinol ne ne cation} one Acetonide Acetonide Acetonide 0.5 % 0.5 % 0.5 % Pravastatin Pravastatin No Pravastati Sodium 40 Sodium 40 n Sodium MG MG 40 MG amLODIPine amLODIPine No 1{table QD amLODIPine Besylate 5 Besylate 5 t} Besylate 5 MG MG MG Triamcinolo Triamcinolo No 1{appli Triamcinol ne ne cation} one Acetonide Acetonide Acetonide 0.1 % 0.1 % 0.1 % Meclizine Meclizine No 1{table Meclizine HCl 25 MG HCl 25 MG t_as_ne HCl 25 MG eded} Albuterol Albuterol No 2{puff_ Albuterol Sulfate 108 Sulfate 108 as_need Sulfate (90 Base) (90 Base) ed} 108 (90 MCG/ACT MCG/ACT Base) MCG/ACT Loratadine Loratadine No QD Loratadine 10 MG 10 MG 10 MG Lumigan Lumigan No 1{drop_ QD Lumigan 0.01 % 0.01 % into_af 0.01 % fected_ eye_in_ the_eve [place]} Pravastatin Pravastatin No QD Pravastati Sodium 40 Sodium 40 n Sodium MG MG 40 MG Montelukast Montelukast No 1{table QD Montelukas Sodium 10 Sodium 10 t} t Sodium MG MG 10 MG amLODIPine amLODIPine No 1{table QD amLODIPine Besylate 5 Besylate 5 t} Besylate 5 MG MG MG Pravastatin Pravastatin No Pravastati Sodium 40 Sodium 40 n Sodium MG MG 40 MG Meclizine Meclizine No 1{table Meclizine HCl 25 MG HCl 25 MG t_as_ne HCl 25 MG eded} Azopt 1 % Azopt 1 % No 1{drop_ TID Azopt 1 % into_af fected_ eye} Fluticasone Fluticasone No Fluticason Propionate Propionate e 50 MCG/ACT 50 MCG/ACT Propionate 50 MCG/ACT Albuterol Albuterol No 2{puff_ Albuterol Sulfate 108 Sulfate 108 as_need Sulfate (90 Base) (90 Base) ed} 108 (90 MCG/ACT MCG/ACT Base) MCG/ACT Finasteride Finasteride No Finasterid 5 MG 5 MG e 5 MG amLODIPine amLODIPine No amLODIPine Besylate 5 Besylate 5 Besylate 5 MG MG MG Pravastatin Pravastatin No QD Pravastati Sodium 40 Sodium 40 n Sodium MG MG 40 MG Lumigan Lumigan No 1{drop_ QD Lumigan 0.01 % 0.01 % into_af 0.01 % fected_ eye_in_ the_eve [place]} Loratadine Loratadine No QD Loratadine 10 MG 10 MG 10 MG Triamcinolo Triamcinolo No 1{appli Triamcinol ne ne cation} one Acetonide Acetonide Acetonide 0.1 % 0.1 % 0.1 % Triamcinolo Triamcinolo No 1{appli Triamcinol ne ne cation} one Acetonide Acetonide Acetonide 0.5 % 0.5 % 0.5 % Montelukast Montelukast No 1{table QD Montelukas Sodium 10 Sodium 10 t} t Sodium MG MG 10 MG Montelukast Montelukast No Montelukas Sodium 10 Sodium 10 t Sodium MG MG 10 MG Triamcinolo Triamcinolo No 1{appli Triamcinol ne ne cation} one Acetonide Acetonide Acetonide 0.1 % 0.1 % 0.1 % Lumigan Lumigan No 1{drop_ QD Lumigan 0.01 % 0.01 % into_af 0.01 % fected_ eye_in_ the_eve [place]} Pravastatin Pravastatin No QD Pravastati Sodium 40 Sodium 40 n Sodium MG MG 40 MG Albuterol Albuterol No 2{puff_ Albuterol Sulfate 108 Sulfate 108 as_need Sulfate (90 Base) (90 Base) ed} 108 (90 MCG/ACT MCG/ACT Base) MCG/ACT Montelukast Montelukast No 1{table QD Montelukas Sodium 10 Sodium 10 t} t Sodium MG MG 10 MG Montelukast Montelukast No Montelukas Sodium 10 Sodium 10 t Sodium MG MG 10 MG Meclizine Meclizine No 1{table Meclizine HCl 25 MG HCl 25 MG t_as_ne HCl 25 MG eded} Azopt 1 % Azopt 1 % No 1{drop_ TID Azopt 1 % into_af fected_ eye} Loratadine Loratadine No QD Loratadine 10 MG 10 MG 10 MG Pravastatin Pravastatin No Pravastati Sodium 40 Sodium 40 n Sodium MG MG 40 MG Triamcinolo Triamcinolo No 1{appli Triamcinol ne ne cation} one Acetonide Acetonide Acetonide 0.1 % 0.1 % 0.1 % Lumigan Lumigan No 1{drop_ QD Lumigan 0.01 % 0.01 % into_af 0.01 % fected_ eye_in_ the_eve [place]} Pravastatin Pravastatin No QD Pravastati Sodium 40 Sodium 40 n Sodium MG MG 40 MG Albuterol Albuterol No 2{puff_ Albuterol Sulfate 108 Sulfate 108 as_need Sulfate (90 Base) (90 Base) ed} 108 (90 MCG/ACT MCG/ACT Base) MCG/ACT Montelukast Montelukast No 1{table QD Montelukas Sodium 10 Sodium 10 t} t Sodium MG MG 10 MG Montelukast Montelukast No Montelukas Sodium 10 Sodium 10 t Sodium MG MG 10 MG Meclizine Meclizine No 1{table Meclizine HCl 25 MG HCl 25 MG t_as_ne HCl 25 MG eded} Azopt 1 % Azopt 1 % No 1{drop_ TID Azopt 1 % into_af fected_ eye} Loratadine Loratadine No QD Loratadine 10 MG 10 MG 10 MG Pravastatin Pravastatin No Pravastati Sodium 40 Sodium 40 n Sodium MG MG 40 MG Triamcinolo Triamcinolo No 1{appli Triamcinol ne ne cation} one Acetonide Acetonide Acetonide 0.1 % 0.1 % 0.1 % Lumigan Lumigan No 1{drop_ QD Lumigan 0.01 % 0.01 % into_af 0.01 % fected_ eye_in_ the_eve [place]} Pravastatin Pravastatin No QD Pravastati Sodium 40 Sodium 40 n Sodium MG MG 40 MG Albuterol Albuterol No 2{puff_ Albuterol Sulfate 108 Sulfate 108 as_need Sulfate (90 Base) (90 Base) ed} 108 (90 MCG/ACT MCG/ACT Base) MCG/ACT Montelukast Montelukast No 1{table QD Montelukas Sodium 10 Sodium 10 t} t Sodium MG MG 10 MG Montelukast Montelukast No Montelukas Sodium 10 Sodium 10 t Sodium MG MG 10 MG Meclizine Meclizine No 1{table Meclizine HCl 25 MG HCl 25 MG t_as_ne HCl 25 MG eded} Azopt 1 % Azopt 1 % No 1{drop_ TID Azopt 1 % into_af fected_ eye} Loratadine Loratadine No QD Loratadine 10 MG 10 MG 10 MG Pravastatin Pravastatin No Pravastati Sodium 40 Sodium 40 n Sodium MG MG 40 MG Albuterol Albuterol No 2{puff_ Albuterol Sulfate 108 Sulfate 108 as_need Sulfate (90 Base) (90 Base) ed} 108 (90 MCG/ACT MCG/ACT Base) MCG/ACT Triamcinolo Triamcinolo No 1{appli Triamcinol ne ne cation} one Acetonide Acetonide Acetonide 0.1 % 0.1 % 0.1 % Meclizine Meclizine No 1{table Meclizine HCl 25 MG HCl 25 MG t_as_ne HCl 25 MG eded} Montelukast Montelukast No 1{table QD Montelukas Sodium 10 Sodium 10 t} t Sodium MG MG 10 MG Loratadine Loratadine No QD Loratadine 10 MG 10 MG 10 MG Finasteride Finasteride No Finasterid 5 MG 5 MG e 5 MG Pravastatin Pravastatin No QD Pravastati Sodium 40 Sodium 40 n Sodium MG MG 40 MG amLODIPine amLODIPine No amLODIPine Besylate 5 Besylate 5 Besylate 5 MG MG MG Pravastatin Pravastatin No Pravastati Sodium 40 Sodium 40 n Sodium MG MG 40 MG Montelukast Montelukast No Montelukas Sodium 10 Sodium 10 t Sodium MG MG 10 MG Lumigan Lumigan No 1{drop_ QD Lumigan 0.01 % 0.01 % into_af 0.01 % fected_ eye_in_ the_eve [place]} Azopt 1 % Azopt 1 % No 1{drop_ TID Azopt 1 % into_af fected_ eye} Telmisartan Telmisartan No 1{table QD Telmisarta 20 MG 20 MG t} n 20 MG Albuterol Albuterol No Albuterol Sulfate HFA Sulfate HFA Sulfate 108 (90 108 (90 HFA 108 Base) Base) (90 Base) MCG/ACT MCG/ACT MCG/ACT amLODIPine amLODIPine No amLODIPine Besylate 5 Besylate 5 Besylate 5 MG MG MG Montelukast Montelukast No Montelukas Sodium 10 Sodium 10 t Sodium MG MG 10 MG Finasteride Finasteride No Finasterid 5 MG 5 MG e 5 MG Fluticasone Fluticasone No Fluticason Propionate Propionate e 50 MCG/ACT 50 MCG/ACT Propionate 50 MCG/ACT Azopt 1 % Azopt 1 % No 1{drop_ TID Azopt 1 % into_af fected_ eye} Triamcinolo Triamcinolo No 1{appli Triamcinol ne ne cation} one Acetonide Acetonide Acetonide 0.5 % 0.5 % 0.5 % Pravastatin Pravastatin No Pravastati Sodium 40 Sodium 40 n Sodium MG MG 40 MG amLODIPine amLODIPine No 1{table QD amLODIPine Besylate 5 Besylate 5 t} Besylate 5 MG MG MG Triamcinolo Triamcinolo No 1{appli Triamcinol ne ne cation} one Acetonide Acetonide Acetonide 0.1 % 0.1 % 0.1 % Meclizine Meclizine No 1{table Meclizine HCl 25 MG HCl 25 MG t_as_ne HCl 25 MG eded} Albuterol Albuterol No 2{puff_ Albuterol Sulfate 108 Sulfate 108 as_need Sulfate (90 Base) (90 Base) ed} 108 (90 MCG/ACT MCG/ACT Base) MCG/ACT Loratadine Loratadine No QD Loratadine 10 MG 10 MG 10 MG Lumigan Lumigan No 1{drop_ QD Lumigan 0.01 % 0.01 % into_af 0.01 % fected_ eye_in_ the_eve [place]} Pravastatin Pravastatin No QD Pravastati Sodium 40 Sodium 40 n Sodium MG MG 40 MG Montelukast Montelukast No 1{table QD Montelukas Sodium 10 Sodium 10 t} t Sodium MG MG 10 MG Azopt 1 % Azopt 1 % No 1{drop_ TID Azopt 1 % into_af fected_ eye} Finasteride Finasteride No Finasterid 5 MG 5 MG e 5 MG amLODIPine amLODIPine No 1{table QD amLODIPine Besylate 5 Besylate 5 t} Besylate 5 MG MG MG Pravastatin Pravastatin No Pravastati Sodium 40 Sodium 40 n Sodium MG MG 40 MG Triamcinolo Triamcinolo No 1{appli Triamcinol ne ne cation} one Acetonide Acetonide Acetonide 0.1 % 0.1 % 0.1 % Triamcinolo Triamcinolo No 1{appli Triamcinol ne ne cation} one Acetonide Acetonide Acetonide 0.5 % 0.5 % 0.5 % Montelukast Montelukast No 1{table QD Montelukas Sodium 10 Sodium 10 t} t Sodium MG MG 10 MG amLODIPine amLODIPine No amLODIPine Besylate 5 Besylate 5 Besylate 5 MG MG MG Loratadine Loratadine No QD Loratadine 10 MG 10 MG 10 MG Montelukast Montelukast No 1{table QD Montelukas Sodium 10 Sodium 10 t} t Sodium MG MG 10 MG Finasteride Finasteride 2022- No Finasterid 5 MG 5 MG 09-19 e 5 MG 00:00 :00 Finasteride Finasteride 2022- No Finasterid 5 MG 5 MG 09-19 e 5 MG 00:00 :00 Finasteride Finasteride 2022- No Finasterid 5 MG 5 MG 09-19 e 5 MG 00:00 :00 Immunizations Ordered Immunization Filled Immunization Date Status Commen ts Source Name Name Rory Valadez 2021-02-15 Completed [facility] ([facility]one) 10:49:00 [facility] Rory Valadez 2021-02-15 Completed [facility] (Triamcinolone) (Triamcinolone) 10:49:00 - [facility] Rory Valadez 2020-06-11 Completed [facility] (Triamcinolone) (Triamcinolone) 15:24:00 [facility] Rory Valadez 2020-06-11 Completed [facility] (Triamcinolone) (Triamcinolone) 15:24:00 [facility] Rory Valadez 2020-02-27 Completed [facility] (Triamcinolone) (Triamcinolone) 11:01:00 [facility] Rory Valadez 2020-02-27 Completed [facility] (Triamcinolone) (Triamcinolone) 11:01:00 - [facility] Vital Signs Vital Name Observation Time Observation Value Comments Source height 2022-06-21 10:20:00 65 [in_i] Common [facility] weight 2022-06-21 10:20:00 137.5 [lb_av] [facility] temperature 2022-06-21 10:20:00 97.3 [degF] [facility] bmi 2022-06-21 10:20:00 22.88 kg/m2 [facility] 2022-06-21 10:20:00 99 % [facility] respiratory rate 2022-06-21 10:20:00 18 /min Comm on [facility] blood pressure 2022-06-21 10:20:00 139 mm[Hg] [facility] - systolic [facility] blood pressure 2022-06-21 10:20:00 72 mm[Hg] [facility] - diastolic [facility] height 2022-06-21 10:30:00 65 [in_i] [facility] 2022-06-21 10:30:00 137.5 [lb_av] [facility] temperature 2022-06-21 10:30:00 97.3 [degF] [facility] bmi 2022-06-21 10:30:00 22.88 kg/m2 [facility] 2022-06-21 10:30:00 99 % [facility] respiratory rate 2022-06-21 10:30:00 18 /min Comm on [facility] blood pressure 2022-06-21 10:30:00 139 mm[Hg] [facility] - systolic [facility] blood pressure 2022-06-21 10:30:00 72 mm[Hg] [facility] - diastolic [facility] height 2022-03-01 10:50:00 65 [in_i] Common [facility] weight 2022-03-01 10:50:00 138.6 [lb_av] Common [facility] temperature 2022-03-01 10:50:00 97.9 [degF] Common [facility] bmi 2022-03-01 10:50:00 23.06 kg/m2 [facility] oximetry 2022-03-01 10:50:00 100 % [facility] respiratory rate 2022-03-01 10:50:00 17 /min Comm on [facility] blood pressure 2022-03-01 10:50:00 137 mm[Hg] Common [facility] - systolic [facility] blood pressure 2022-03-01 10:50:00 71 mm[Hg] Common [facility] - diastolic [facility] height 2022-02-04 08:50:00 65 [in_i] Common [facility] weight 2022-02-04 08:50:00 139.1 [lb_av] [facility] temperature 2022-02-04 08:50:00 97.9 [degF] Common [facility] bmi 2022-02-04 08:50:00 23.14 kg/m2 [facility] oximetry 2022-02-04 08:50:00 100 % [facility] respiratory rate 2022-02-04 08:50:00 18 /min Comm on [facility] blood pressure 2022-02-04 08:50:00 132 mm[Hg] Common [facility] - systolic [facility] blood pressure 2022-02-04 08:50:00 73 mm[Hg] [facility] - diastolic [facility] height 2021-10-12 10:00:00 65 [in_i] Common [facility] weight 2021-10-12 10:00:00 138.2 [lb_av] Common [facility] temperature 2021-10-12 10:00:00 98.1 [degF] [facility] bmi 2021-10-12 10:00:00 23 kg/m2 Common S [facility]irit - [facility] oximetry 2021-10-12 10:00:00 99 % [facility] respiratory rate 2021-10-12 10:00:00 18 /min Comm on [facility] blood pressure 2021-10-12 10:00:00 135 mm[Hg] Common [facility] - systolic [facility] blood pressure 2021-10-12 10:00:00 76 mm[Hg] [facility] - diastolic [facility] height 2021-06-14 13:20:00 65 [in_i] Common [facility] weight 2021-06-14 13:20:00 140.3 [lb_av] [facility] temperature 2021-06-14 13:20:00 98.6 [degF] [facility] bmi 2021-06-14 13:20:00 23.34 kg/m2 Common [facility] oximetry 2021-06-14 13:20:00 98 % [facility] respiratory rate 2021-06-14 13:20:00 18 /min Comm on [facility] blood pressure 2021-06-14 13:20:00 136 mm[Hg] Common [facility] - systolic [facility] blood pressure 2021-06-14 13:20:00 72 mm[Hg] [facility] - diastolic [facility] height 2021-06-14 13:20:00 65 [in_i] [facility] 2021-06-14 13:20:00 140.3 [lb_av] [facility] temperature 2021-06-14 13:20:00 98.6 [degF] [facility] bmi 2021-06-14 13:20:00 23.34 kg/m2 Common S pirit - [facility] oximetry 2021-06-14 13:20:00 98 % [facility] - [facility] blood pressure 2021-06-14 13:20:00 136 mm[Hg] [facility] - systolic [facility] blood pressure 2021-06-14 13:20:00 72 mm[Hg] Common [facility] - diastolic [facility] Procedures This patient has no known procedures. Encounters Start End Encounter Admission Attending Care Care Encounter Source Date/Time Date/Time Type Type Clinicians Facility Department ID 2022-06-17 Outpatient [facility], STLMLC STLMLC [id number] Common 10:26:01 Harshil [facility] 2021-06-16 Outpatient [facility], STLMLC STLMLC [id number] Common 14:39:24 Harshil [id number] [facility] 2021-06-16 Outpatient [facility], STLMLC STLMLC Common 14:03:38 Harshil [id number] [facility] 2021-06-16 Outpatient [facility], STLMLC STLMLC Common 13:44:46 Harshil [id number] [facility] 2021-06-16 Outpatient [facility], STLMLC STLMLC Common 13:36:15 Harshil [id number] [facility] 2021-06-16 Outpatient [facility], STLMLC STLMLC Common 13:31:27 Harshil [id number] [facility] 2021-06-16 Outpatient [facility], STLMLC STLMLC Common 12:56:38 Harshil [id number] [facility] 2021-06-16 Outpatient [facility], STLMLC STLMLC [id number] Common 12:28:06 Harshil [id number] [facility] 2021-06-16 Outpatient [facility], STLMLC STLMLC Common 12:27:09 Harshil [id number] [facility] 2021-06-16 Outpatient [facility], STLMLC STLMLC [id number] Common 12:25:55 Harshil [id number] [facility] 2021-06-16 Outpatient [facility], STLMLC STLMLC [id number] Common 12:24:00 Harshil [id number] [facility] 2021-06-16 Outpatient [facility], STLMLC STLMLC [id number] Common 12:00:42 Harshil [id number] [facility] 2021-06-16 Outpatient [facility], STLMLC STLMLC [id number] Common 11:45:34 Harshil [id number] [facility] 2021-06-16 Outpatient [facility], STLMLC STLMLC [id number] Common 11:27:29 Harshil [id number] [facility] 2021-06-16 Outpatient [facility], STLMLC STLMLC [id number] Common 11:23:46 Harshil [id number] [facility] 2021-06-16 Outpatient [facility], STLMLC STLMLC [id number] Common 11:16:21 Harshil [id number] [facility] 2021-06-16 Outpatient [facility], STLMLC STLMLC [id number] Common 11:12:14 Harshil [id number] [facility] 2022-06-21 2022-06-21 OFFICE STLMLC STLMLC [id number] Co mmon 00:00:00 00:00:00 VISIT [facility] PT - [facility] [address] 2022-06-21 2022-06-21 SUB ANNUAL STLMLC STLMLC [id number] Common 00:00:00 00:00:00 MCR [facility] WELLNESS - CHI VISIT [facility] 2022-06-21 2022-06-21 (TEL) STLMLC STLMLC [id number] Co mmon 00:00:00 00:00:00 [facility] 2022-03-01 2022-03-01 OFFICE STLMLC STLMLC [id number] Co mmon 00:00:00 00:00:00 VISIT [facility] PT - CHI LEVEL 4 [facility] 2022-02-11 2022-02-11 (TEL) STLMLC STLMLC [id number] Co mmon 00:00:00 00:00:00 [facility] 2022-02-04 2022-02-04 OFFICE STLMLC STLMLC [id number] Co mmon 00:00:00 00:00:00 [facility]IT [facility] LEVEL 3 - [facility] 2022-02-03 2022-02-03 (TEL) STLMLC STLMLC [id number] Co mmon 00:00:00 00:00:00 [facility] 2021-10-12 2021-10-12 OFFICE STLMLC STLMLC [id number] Co mmon 00:00:00 00:00:00 VISIT [facility] PT - [facility] LEVEL 4 [facility] 2021-07-29 2021-07-29 (TEL) STLMLC STLMLC [id number] Co mmon 00:00:00 00:00:00 [facility] 2021-07-13 2021-07-13 (TEL) STLMLC STLMLC [id number] Co mmon 00:00:00 00:00:00 [facility] 2021-07-05 2021-07-05 (TEL) STLMLC STLMLC [id number] Co mmon 00:00:00 00:00:00 [facility] 2021-06-14 2021-06-14 OFFICE STLMLC STLMLC [id number] Co mmon 00:00:00 00:00:00 VISIT [facility] L[facility]EL 3 [facility] 2021-06-14 2021-06-14 SUB ANNUAL STLMLC STLMLC [id number] Common 00:00:00 00:00:00 MCR [facility] VISIT [facility] 2021-05-24 2021-05-24 (TEL) STLMLC STLMLC [id number] Co mmon 00:00:00 00:00:00 [facility] 2021-05-20 2021-05-20 (TEL) STLMLC STLMLC [id number] Co mmon 00:00:00 00:00:00 [facility] 2021-03-11 2021-03-11 (TEL) STLMLC STLMLC [id number] Co mmon 00:00:00 00:00:00 [facility] 2021-03-08 2021-03-08 (TEL) STLMLC STLMLC [id number] Co mmon 00:00:00 00:00:00 [facility] 2021-02-15 2021-02-15 Outpatient STLMLC STLMLC [id number] Common 00:00:00 00:00:00 [facility] 2021-01-20 2021-01-20 Outpatient STLMLC STLMLC [id number] Common 00:00:00 00:00:00 [facility] 2020-12-16 2020-12-16 Outpatient STLMLC STLMLC [id number] Common 00:00:00 00:00:00 [facility] 2020-12-16 2020-12-16 Outpatient STLMLC STLMLC [id number] Common 00:00:00 00:00:00 [facility] 2020-09-22 2020-09-22 Outpatient STLMLC STLMLC [id number] Common 00:00:00 00:00:00 [facility] 2020-09-22 2020-09-22 Outpatient STLMLC STLMLC [id number] Common 00:00:00 00:00:00 [facility] 2020-07-22 2020-07-22 Outpatient STLMLC STLMLC [id number] Common 00:00:00 00:00:00 [facility] 2020-07-01 2020-07-01 Outpatient STLMLC STLMLC [id number] Common 00:00:00 00:00:00 [facility] 2020-06-24 2020-06-24 Outpatient STLMLC STLMLC [id number] Common 00:00:00 00:00:00 [facility] 2020-06-23 2020-06-23 Outpatient STLMLC STLMLC [id number] Common 00:00:00 00:00:00 [facility] 2020-06-11 2020-06-11 Outpatient STLMLC STLMLC [id number] Common 00:00:00 00:00:00 [facility] 2020-06-02 2020-06-02 Outpatient STLMLC STLMLC [id number] Common 00:00:00 00:00:00 [facility] 2020-03-18 2020-03-18 Outpatient STLMLC STLMLC [id number] Common 00:00:00 00:00:00 [facility] 2020-03-18 2020-03-18 Outpatient STLMLC STLMLC [id number] Common 00:00:00 00:00:00 [facility] 2020-03-16 2020-03-16 Outpatient STLMLC STLMLC [id number] Common 00:00:00 00:00:00 [facility] 2020-02-27 2020-02-27 Outpatient STLMLC STLMLC [id number] Common 00:00:00 00:00:00 [facility] 2020-02-24 2020-02-24 Outpatient STLMLC STLMLC [id number] Common 00:00:00 00:00:00 [facility] 2020-02-17 2020-02-17 Outpatient STLMLC STLMLC [id number] Common 00:00:00 00:00:00 [facility] 2020-02-12 2020-02-12 Outpatient STLMLC STLMLC [id number] Common 00:00:00 00:00:00 [facility] 2020-02-03 2020-02-03 [id number] Common 09:00:00 09:00:[address] [facility] 2020-01-28 2020-01-28 [id number] Common 11:00:00 11:00:[address] [facility] 2020-01-20 2020-01-20 [facility] [id number] Common 09:00:00 09:00:[address] [facility] 2020-01-13 2020-01-13 [id number] Common 08:50:00 08:50:[address] [facility] 2020-01-06 2020-01-06 [id number] Common 09:00:00 09:00:[address] [facility] 2019-12-30 2019-12-30 [facility] [id number] Common 09:00:00 09:00:[address] [facility] 2019-12-23 2019-12-23 [facility] [id number] Common 08:45:00 08:45:[address] [facility] 2019-12-18 2019-12-18 [facility] [id number] Common 11:30:00 11:30:[address] [facility] [facility] 2019-12-16 2019-12-16 [id number] Common 09:00:00 09:00:[address] [facility] 2019-12-09 2019-12-09 [id number] Common 09:00:00 09:00:[address] [facility] 2019-12-02 2019-12-02 [id number] Common 09:30:00 09:30:[address] [facility] 2019-11-25 2019-11-25 [facility] [id number] Common 09:00:00 09:00:[address] [facility] 2019-11-18 2019-11-18 [facility] [id number] Common 09:00:00 09:00:[address] [facility] 2019-11-12 2019-11-12 [id number] Common 11:00:00 11:00:[address] [facility] 2019-11-11 2019-11-11 [facility] [id number] Common 10:00:00 10:00:[address] [facility] 2019-11-07 2019-11-07 [facility] [id number] Common 11:23:00 11:23:[address] [facility] 2019-11-04 2019-11-04 [facility] [id number] Common 09:00:00 09:00:[address] [facility] 2019-10-28 2019-10-28 [facility] [id number] Common 09:00:00 09:00:[address] [facility] 2019-10-22 2019-10-22 [facility] [id number] Common 13:45:00 13:45:[address] [facility] 2019-10-15 2019-10-15 [facility] [id number] Common 09:00:00 09:00:[address] [facility] 2019-10-07 2019-10-07 [facility] [id number] Common 09:00:00 09:00:[address] [facility] 2019-09-30 2019-09-30 [facility] [id number] Common 10:00:00 10:00:[address] [facility] 2019-09-23 2019-09-23 [facility] [id number] Common 08:08:00 08:08:[address] [facility] 2019-09-18 2019-09-18 [facility] [id number] Common 15:45:00 15:45:[address] [facility] 2019-09-18 2019-09-18 [facility] [id number] Common 15:45:00 15:45:[address] [facility] 2019-08-08 2019-08-08 [facility] [id number] Common 10:00:00 10:00:[address] [facility] 2019 2019 [facility] [id number] Common 16:38:00 16:38:[address] [facility] 2019 2019 [id number] Common 14:22:00 14:22:[address] [facility] 2019 2019 [id number] Common 14:00:00 14:00:[address] [facility] Results This patient has no known results.
[2022-12-31] MEDS ORDERED: KETOROLAC 30 MG/ML INJ ONE (15:38)
[2022-12-31 15:45] VITALS: BP 148/77; TEMP 99; O2SAT 100
== END 2022-12-31 15:39 | disposition home or self-care (01) ==
LOC: ER 14:18
DX: M79.672 Pain in left foot (principal)
CPT/HCPCS: 99282

== ENCOUNTER 2023-08-02 10:50 | Inpatient (IN) | payer OTHER ==
--- OUTSIDE RECORDS SUMMARY | 2023-08-02 10:56 | XMS REPORT | Continuity of Care Document ---
Author Name Unknown Address [address] [facility] [address] [place] [address] [facility] thconnect Address [address] [facility] [address] [place] [address] Care Team Providers Care Supervisor Shaving And Splitting Name Role Phone Chrystal Walker Attending Clinician Unavail able Harshil Dunne Attending Clinician Unavailable Payers Payer Name Policy Type Policy Number Effective Date Expirati on Date Source [facility] MCR Advantage (HMO-POS) [id number] 2020 00:00:00 [facility] MEDICAID MC [id number] [facility] MEDICAID [place] [id number] [facility] Problems Condition Name Condition Details Condition Category Status Onset Date Resolution Date Last Treatment Date Treating Clinician Comments Source Chronic kidney disease stage 3B (disorder) Stage 3b chronic kidney disease Problem [facility] [id number] Essential hypertensi on Problem [facility] [id number] Mixed hyperlipid emia Problem [facility] [id number] Allergic rhinitis Problem [facility] [id number] Benign prostatic hyperplasi a, unspecifie d whether lower urinary tract symptoms present Problem [facility] [id number] Absolute glaucoma of both eyes Problem [facility] [id number] Atopic dermatitis , unspecifie d type Problem [facility] [id number] Anemia of chronic disease Problem [facility] Social History Social Habit Start Date Stop Date Quantity Comments Source History of Tobacco Use [facility] Sex Assigned At [facility] Smoking Status Start Date Stop Date Source Never Smoker [facility] Medications Ordered Medication Name Filled Medication Name Start Date Stop Date Current Medication? Ordering Clinician Indication Dosage Frequency Signature (SIG) Comments Components Source Fluticasone Propionate 50 MCG/ACT Fluticasone Propionate 50 MCG/ACT 2022-05 0-16 00:00: 00 No 1{spray _in_eac h_nostr il} QD Fluticason e Propionate 50 MCG/ACT Claritin 10 MG Claritin 10 MG 2022-05 0-16 00:00: 00 No 1{table t} QD Claritin 10 MG Kenalog (Triamcinol one) Kenalog (Triamcinol one) 2022-05 0-16 00:00: 00 No 40mg [facility] Fluticasone Propionate 50 MCG/ACT Fluticasone Propionate 50 MCG/ACT 2022-05 0-16 00:00: 00 No 1{spray _in_eac h_nostr il} QD Fluticason e Propionate 50 MCG/ACT Claritin 10 MG Claritin 10 MG 2022-05 0-16 00:00: 00 No 1{table t} QD Claritin 10 MG Kenalog (Triamcinol one) Kenalog (Triamcinol one) 2022-05 0-16 00:00: 00 No 40mg [facility] Fluticasone Propionate 50 MCG/ACT Fluticasone Propionate 50 MCG/ACT 2022-05 0-16 00:00: 00 No 1{spray _in_eac h_nostr il} QD Fluticason e Propionate 50 MCG/ACT Claritin 10 MG Claritin 10 MG 2022-05 0-16 00:00: 00 No 1{table t} QD Claritin 10 MG Kenalog (Triamcinol one) Kenalog (Triamcinol one) 2022-05 0-16 00:00: 00 No 40mg [facility] Fluticasone Propionate 50 MCG/ACT Fluticasone Propionate 50 MCG/ACT 2022-05 0-16 00:00: 00 No 1{spray _in_eac h_nostr il} QD Fluticason e Propionate 50 MCG/ACT Claritin 10 MG Claritin 10 MG 2022-05 0-16 00:00: 00 No 1{table t} QD Claritin 10 MG Kenalog (Triamcinol one) Kenalog (Triamcinol one) 2022-05 0-16 00:00: 00 No 40mg [facility] Fluticasone Propionate 50 MCG/ACT Fluticasone Propionate 50 MCG/ACT 2022-05 0-16 00:00: 00 No 1{spray _in_eac h_nostr il} QD Fluticason e Propionate 50 MCG/ACT Claritin 10 MG Claritin 10 MG 2022-05 0-16 00:00: 00 No 1{table t} QD Claritin 10 MG Kenalog (Triamcinol one) Kenalog (Triamcinol one) 2022-05 0-16 00:00: 00 No 40mg [facility] Fluticasone Propionate 50 MCG/ACT Fluticasone Propionate 50 MCG/ACT 2022-05 0-16 00:00: 00 No 1{spray _in_eac h_nostr il} QD Fluticason e Propionate 50 MCG/ACT Claritin 10 MG Claritin 10 MG 2022-05 0-16 00:00: 00 No 1{table t} QD Claritin 10 MG Kenalog (Triamcinol one) Kenalog (Triamcinol one) 2022-05 0-16 00:00: 00 No 40mg [facility] Fluticasone Propionate 50 MCG/ACT Fluticasone Propionate 50 MCG/ACT 2022-05 0-16 00:00: 00 No 1{spray _in_eac h_nostr il} QD Fluticason e Propionate 50 MCG/ACT Claritin 10 MG Claritin 10 MG 2022-05 0-16 00:00: 00 No 1{table t} QD Claritin 10 MG Kenalog (Triamcinol one) Kenalog (Triamcinol one) 2022-05 0-16 00:00: 00 No 40mg [facility] Claritin 10 MG Claritin 10 MG 2022-05 0-16 00:00: 00 No 1{table t} QD Claritin 10 MG Fluticasone Propionate 50 MCG/ACT Fluticasone Propionate 50 MCG/ACT 2022-05 0-16 00:00: 00 No 1{spray _in_eac h_nostr il} QD Fluticason e Propionate 50 MCG/ACT Kenalog (Triamcinol one) Kenalog (Triamcinol one) 2022-05 0-16 00:00: 00 No 40mg [facility] Claritin 10 MG Claritin 10 MG 2022-05 0-16 00:00: 00 No 1{table t} QD Claritin 10 MG Fluticasone Propionate 50 MCG/ACT Fluticasone Propionate 50 MCG/ACT 2022-05 0-16 00:00: 00 No 1{spray _in_eac h_nostr il} QD Fluticason e Propionate 50 MCG/ACT Kenalog (Triamcinol one) Kenalog (Triamcinol one) 2022-05 0-16 00:00: 00 No 40mg [facility] Claritin 10 MG Claritin 10 MG 2022-05 0-16 00:00: 00 No 1{table t} QD Claritin 10 MG Fluticasone Propionate 50 MCG/ACT Fluticasone Propionate 50 MCG/ACT 2022-05 0-16 00:00: 00 No 1{spray _in_eac h_nostr il} QD Fluticason e Propionate 50 MCG/ACT Kenalog (Triamcinol one) Kenalog (Triamcinol one) 2022-05 0-16 00:00: 00 No 40mg [facility] Kenalog (Triamcinol one) Kenalog (Triamcinol one) 2021-05 0-11 00:00: 00 No 40mg [facility] Kenalog (Triamcinol one) Kenalog (Triamcinol one) 2021-05 0-11 00:00: 00 No 40mg [facility] Kenalog (Triamcinol one) Kenalog (Triamcinol one) 2021-05 0-11 00:00: 00 No 40mg [facility] Kenalog (Triamcinol one) Kenalog (Triamcinol one) 2021-05 0-11 00:00: 00 No 40mg [facility] Kenalog (Triamcinol one) Kenalog (Triamcinol one) 2021-05 0-11 00:00: 00 No 40mg [facility] Kenalog (Triamcinol one) Kenalog (Triamcinol one) 2021-05 0-11 00:00: 00 No 40mg [facility] Kenalog (Triamcinol one) Kenalog (Triamcinol one) 2021-05 0-11 00:00: 00 No 40mg [facility] Kenalog (Triamcinol one) Kenalog (Triamcinol one) 2021-05 0-11 00:00: 00 No 40mg [facility] Kenalog (Triamcinol one) Kenalog (Triamcinol one) 2021-05 0-11 00:00: 00 No 40mg [facility] Kenalog (Triamcinol one) Kenalog (Triamcinol one) 2021-05 0-11 00:00: 00 No 40mg [facility] Kenalog (Triamcinol one) Kenalog (Triamcinol one) 2021-05 0-11 00:00: 00 No 40mg [facility] Kenalog (Triamcinol one) Kenalog (Triamcinol one) 2021-05 0-11 00:00: 00 No 40mg [facility] Kenalog (Triamcinol one) Kenalog (Triamcinol one) 2021-05 0-11 00:00: 00 No 40mg [facility] Kenalog (Triamcinol one) Kenalog (Triamcinol one) 2021-05 0-11 00:00: 00 No 40mg [facility] Kenalog (Triamcinol one) Kenalog (Triamcinol one) 2021-05 0-11 00:00: 00 No 40mg [facility] Kenalog (Triamcinol one) Kenalog (Triamcinol one) 9-16 00:00: 00 No 40mg [facility] Fluticasone Propionate 50 MCG/ACT Fluticasone Propionate 50 MCG/ACT 0 16 00:00: 00 No 1{spray _in_eac h_nostr il} QD Fluticason e Propionate 50 MCG/ACT Kenalog (Triamcinol one) Kenalog (Triamcinol one) 0 -16 00:00: 00 No 40mg [facility] Kenalog (Triamcinol one) Kenalog (Triamcinol one) 0 16 00:00: 00 No 40mg [facility] Kenalog (Triamcinol one) Kenalog (Triamcinol one) 0 -16 00:00: 00 No 40mg [facility] Kenalog (Triamcinol one) Kenalog (Triamcinol one) 0 -16 00:00: 00 No 40mg [facility] Kenalog (Triamcinol one) Kenalog (Triamcinol one) 0 16 00:00: 00 No 40mg [facility] Kenalog (Triamcinol one) Kenalog (Triamcinol one) 0 -16 00:00: 00 No 40mg [facility] Kenalog (Triamcinol one) Kenalog (Triamcinol one) 0 -16 00:00: 00 No 40mg [facility] Kenalog (Triamcinol one) Kenalog (Triamcinol one) 0 -16 00:00: 00 No 40mg [facility] Kenalog (Triamcinol one) Kenalog (Triamcinol one) 0 -16 00:00: 00 No 40mg [facility] Kenalog (Triamcinol one) Kenalog (Triamcinol one) 0 9-16 00:00: 00 No 40mg [facility] Kenalog (Triamcinol one) Kenalog (Triamcinol one) 0 -16 00:00: 00 No 40mg [facility] Kenalog (Triamcinol one) Kenalog (Triamcinol one) 0 -16 00:00: 00 No 40mg [facility] Kenalog (Triamcinol one) Kenalog (Triamcinol one) 0 9-16 00:00: 00 No 40mg [facility] Kenalog (Triamcinol one) Kenalog (Triamcinol one) 0 -16 00:00: 00 No 40mg [facility] Kenalog (Triamcinol one) Kenalog (Triamcinol one) 0 -16 00:00: 00 No 40mg [facility] Kenalog (Triamcinol one) Kenalog (Triamcinol one) 0 -16 00:00: 00 No 40mg [facility] Kenalog (Triamcinol one) Kenalog (Triamcinol one) 0 -16 00:00: 00 No 40mg [facility] Kenalog (Triamcinol one) Kenalog (Triamcinol one) 0 -16 00:00: 00 No 40mg [facility] Fluticasone Propionate 50 MCG/ACT Fluticasone Propionate 50 MCG/ACT 0 2-14 00:00: 00 No 1{spray _in_eac h_nostr il} QD Fluticason e Propionate 50 MCG/ACT Fluticasone Propionate 50 MCG/ACT Fluticasone Propionate 50 MCG/ACT 2021-0 2-14 00:00: 00 No 1{spray _in_eac h_nostr il} QD Fluticason e Propionate 50 MCG/ACT Fluticasone Propionate 50 MCG/ACT Fluticasone Propionate 50 MCG/ACT 2021-0 2-14 00:00: 00 No 1{spray _in_eac h_nostr il} QD Fluticason e Propionate 50 MCG/ACT Fluticasone Propionate 50 MCG/ACT Fluticasone Propionate 50 MCG/ACT 0 2-14 00:00: 00 No 1{spray _in_eac h_nostr il} QD Fluticason e Propionate 50 MCG/ACT Fluticasone Propionate 50 MCG/ACT Fluticasone Propionate 50 MCG/ACT 0 2-14 00:00: 00 No 1{spray _in_eac h_nostr il} QD Fluticason e Propionate 50 MCG/ACT Kenalog (Triamcinol one) Kenalog (Triamcinol one) 02-15 00:00: 00 No 40mg [facility] Kenalog (Triamcinol one) Kenalog (Triamcinol one) 02-15 00:00: 00 No 40mg [facility] Kenalog (Triamcinol one) Kenalog (Triamcinol one) 02-15 00:00: 00 No 40mg [facility] Kenalog (Triamcinol one) Kenalog (Triamcinol one) 02-15 00:00: 00 No 40mg [facility] Kenalog (Triamcinol one) Kenalog (Triamcinol one) 02-15 00:00: 00 No 40mg [facility] Kenalog (Triamcinol one) Kenalog (Triamcinol one) 0 02-15 00:00: 00 No 40mg [facility] Kenalog (Triamcinol one) Kenalog (Triamcinol one) 0 02-15 00:00: 00 No 40mg [facility] Kenalog (Triamcinol one) Kenalog (Triamcinol one) 0 02-15 00:00: 00 No 40mg [facility] Kenalog (Triamcinol one) Kenalog (Triamcinol one) 0 02-15 00:00: 00 No 40mg [facility] Kenalog (Triamcinol one) Kenalog (Triamcinol one) 0 02-15 00:00: 00 No 40mg [facility] Kenalog (Triamcinol one) Kenalog (Triamcinol one) 0 02-15 00:00: 00 No 40mg [facility] Kenalog (Triamcinol one) Kenalog (Triamcinol one) 0 02-15 00:00: 00 No 40mg [facility] Kenalog (Triamcinol one) Kenalog (Triamcinol one) 0 02-15 00:00: 00 No 40mg [facility] Kenalog (Triamcinol one) Kenalog (Triamcinol one) 0 02-15 00:00: 00 No 40mg [facility] Kenalog (Triamcinol one) Kenalog (Triamcinol one) 0 02-15 00:00: 00 No 40mg [facility] Kenalog (Triamcinol one) Kenalog (Triamcinol one) 0 02-15 00:00: 00 No 40mg [facility] Kenalog (Triamcinol one) Kenalog (Triamcinol one) 0 02-15 00:00: 00 No 40mg [facility] Kenalog (Triamcinol one) Kenalog (Triamcinol one) 0 02-15 00:00: 00 No 40mg [facility] Kenalog (Triamcinol one) Kenalog (Triamcinol one) 0 02-15 00:00: 00 No 40mg [facility] Kenalog (Triamcinol one) Kenalog (Triamcinol one) 0 02-15 00:00: 00 No 40mg [facility] Kenalog (Triamcinol one) Kenalog (Triamcinol one) 0 02-15 00:00: 00 No 40mg [facility] Telmisartan 20 MG Telmisartan 20 MG 2020-0 2-10 00:00: 00 No 1{table t} QD Telmisarta n 20 MG Telmisartan 20 MG Telmisartan 20 MG 1-0 2-10 00:00: 00 No 1{table t} QD Telmisarta n 20 MG Telmisartan 20 MG Telmisartan 20 MG 1-0 2-10 00:00: 00 No 1{table t} QD Telmisarta n 20 MG Telmisartan 20 MG Telmisartan 20 MG 1-0 2-10 00:00: 00 No 1{table t} QD Telmisarta n 20 MG Telmisartan 20 MG Telmisartan 20 MG 1-0 2-10 00:00: 00 No 1{table t} QD Telmisarta n 20 MG Telmisartan 20 MG Telmisartan 20 MG 1-0 2-10 00:00: 00 No 1{table t} QD Telmisarta n 20 MG Telmisartan 20 MG Telmisartan 20 MG 1-0 2-10 00:00: 00 No 1{table t} QD Telmisarta n 20 MG Telmisartan 20 MG Telmisartan 20 MG 1-0 2-10 00:00: 00 No 1{table t} QD Telmisarta n 20 MG Telmisartan 20 MG Telmisartan 20 MG 1-0 2-10 00:00: 00 No 1{table t} QD Telmisarta n 20 MG Telmisartan 20 MG Telmisartan 20 MG 1-0 2-10 00:00: 00 No 1{table t} QD Telmisarta n 20 MG Telmisartan 20 MG Telmisartan 20 MG 1-0 2-10 00:00: 00 No 1{table t} QD Telmisarta n 20 MG Telmisartan 20 MG Telmisartan 20 MG 1-0 2-10 00:00: 00 No 1{table t} QD Telmisarta n 20 MG Telmisartan 20 MG Telmisartan 20 MG 1-0 2-10 00:00: 00 No 1{table t} QD Telmisarta n 20 MG Telmisartan 20 MG Telmisartan 20 MG 2-10 00:00: 00 No 1{table t} QD Telmisarta n 20 MG Telmisartan 20 MG Telmisartan 20 MG 2-10 00:00: 00 No 1{table t} QD Telmisarta n 20 MG Telmisartan 20 MG Telmisartan 20 MG 2-10 00:00: 00 No 1{table t} QD Telmisarta n 20 MG Telmisartan 20 MG Telmisartan 20 MG 2-10 00:00: 00 No 1{table t} QD Telmisarta n 20 MG Kenalog (Triamcinol one) Kenalog (Triamcinol one) - 00:00: 00 No 40mg [facility] Kenalog (Triamcinol one) Kenalog (Triamcinol one) - 00:00: 00 No 40mg [facility] Kenalog (Triamcinol one) Kenalog (Triamcinol one) - 00:00: 00 No 40mg [facility] Kenalog (Triamcinol one) Kenalog (Triamcinol one) - 00:00: 00 No 40mg [facility] Kenalog (Triamcinol one) Kenalog (Triamcinol one) - 00:00: 00 No 40mg [facility] Kenalog (Triamcinol one) Kenalog (Triamcinol one) - 00:00: 00 No 40mg [facility] Kenalog (Triamcinol one) Kenalog (Triamcinol one) - 00:00: 00 No 40mg [facility] Kenalog (Triamcinol one) Kenalog (Triamcinol one) - 00:00: 00 No 40mg [facility] Kenalog (Triamcinol one) Kenalog (Triamcinol one) 06-11 00:00: 00 No 40mg [facility] Kenalog (Triamcinol one) Kenalog (Triamcinol one) 06-11 00:00: 00 No 40mg [facility] Kenalog (Triamcinol one) Kenalog (Triamcinol one) 06-11 00:00: 00 No 40mg [facility] Kenalog (Triamcinol one) Kenalog (Triamcinol one) 06-11 00:00: 00 No 40mg [facility] Kenalog (Triamcinol one) Kenalog (Triamcinol one) 06-11 00:00: 00 No 40mg [facility] Kenalog (Triamcinol one) Kenalog (Triamcinol one) 06-11 00:00: 00 No 40mg [facility] Kenalog (Triamcinol one) Kenalog (Triamcinol one) 06-11 00:00: 00 No 40mg [facility] Kenalog (Triamcinol one) Kenalog (Triamcinol one) 06-11 00:00: 00 No 40mg [facility] Kenalog (Triamcinol one) Kenalog (Triamcinol one) 06-11 00:00: 00 No 40mg [facility] Kenalog (Triamcinol one) Kenalog (Triamcinol one) 06-11 00:00: 00 No 40mg [facility] Kenalog (Triamcinol one) Kenalog (Triamcinol one) 06-11 00:00: 00 No 40mg [facility] Kenalog (Triamcinol one) Kenalog (Triamcinol one) 2021-0 1-21 00:00: 00 No 40mg [facility] Kenalog (Triamcinol one) Kenalog (Triamcinol one) 2020-0 1- 00:00: 00 No 40mg [facility] Silodosin 8 MG Silodosin 8 MG 2019-05 2- 00:00: 00 No 1{capsu le_with _a_meal } QD Silodosin 8 MG Silodosin 8 MG Silodosin 8 MG 2019-05 2- 00:00: 00 No 1{capsu le_with _a_meal } QD Silodosin 8 MG Silodosin 8 MG Silodosin 8 MG 2019-05 2- 00:00: 00 No 1{capsu le_with _a_meal } QD Silodosin 8 MG Silodosin 8 MG Silodosin 8 MG 2019-05 2- 00:00: 00 No 1{capsu le_with _a_meal } QD Silodosin 8 MG Silodosin 8 MG Silodosin 8 MG 2019-05 2- 00:00: 00 No 1{capsu le_with _a_meal } QD Silodosin 8 MG Silodosin 8 MG Silodosin 8 MG 2019-05 2- 00:00: 00 No 1{capsu le_with _a_meal } QD Silodosin 8 MG Silodosin 8 MG Silodosin 8 MG 2019-05 2 00:00: 00 No 1{capsu le_with _a_meal } QD Silodosin 8 MG Silodosin 8 MG Silodosin 8 MG 2019-05 2- 00:00: 00 No 1{capsu le_with _a_meal } QD Silodosin 8 MG Silodosin 8 MG Silodosin 8 MG 2019- 2- 00:00: 00 No 1{capsu le_with _a_meal } QD Silodosin 8 MG Silodosin 8 MG Silodosin 8 MG 2019- 2- 00:00: 00 No 1{capsu le_with _a_meal } QD Silodosin 8 MG Silodosin 8 MG Silodosin 8 MG 2019- 2- 00:00: 00 No 1{capsu le_with _a_meal } QD Silodosin 8 MG Silodosin 8 MG Silodosin 8 MG 2019-05 00:00: 00 No 1{capsu le_with _a_meal } QD Silodosin 8 MG Silodosin 8 MG Silodosin 8 MG 2019-05 00:00: 00 No 1{capsu le_with _a_meal } QD Silodosin 8 MG Silodosin 8 MG Silodosin 8 MG 2019-05 00:00: 00 No 1{capsu le_with _a_meal } QD Silodosin 8 MG Kenalog (Triamcinol one) Kenalog (Triamcinol one) 2019-05 008 00:00: 00 No 40mg [facility] Kenalog (Triamcinol one) Kenalog (Triamcinol one) 2019-05 0 00:00: 00 No 40mg [facility] Kenalog (Triamcinol one) Kenalog (Triamcinol one) 2019-05 0 00:00: 00 No 40mg [facility] Kenalog (Triamcinol one) Kenalog (Triamcinol one) 2019-05 008 00:00: 00 No 40mg [facility] Kenalog (Triamcinol one) Kenalog (Triamcinol one) 2019-05 008 00:00: 00 No 40mg [facility] Kenalog (Triamcinol one) Kenalog (Triamcinol one) 2019-05 008 00:00: 00 No 40mg [facility] Kenalog (Triamcinol one) Kenalog (Triamcinol one) 2019-05 008 00:00: 00 No 40mg [facility] Kenalog (Triamcinol one) Kenalog (Triamcinol one) 2019-05 008 00:00: 00 No 40mg [facility] Kenalog (Triamcinol one) Kenalog (Triamcinol one) 2019-05 0-08 00:00: 00 No 40mg [facility] Kenalog (Triamcinol one) Kenalog (Triamcinol one) 2019-05 0-08 00:00: 00 No 40mg [facility] Kenalog (Triamcinol one) Kenalog (Triamcinol one) 2019-05 008 00:00: 00 No 40mg [facility] Kenalog (Triamcinol one) Kenalog (Triamcinol one) 2019-05 008 00:00: 00 No 40mg [facility] Kenalog (Triamcinol one) Kenalog (Triamcinol one) 2019-05 008 00:00: 00 No 40mg [facility] Kenalog (Triamcinol one) Kenalog (Triamcinol one) 2019-05 0 00:00: 00 No 40mg [facility] Kenalog (Triamcinol one) Kenalog (Triamcinol one) 2019-05 008 00:00: 00 No 40mg [facility] Kenalog (Triamcinol one) Kenalog (Triamcinol one) 2019-05 008 00:00: 00 No 40mg [facility] Kenalog (Triamcinol one) Kenalog (Triamcinol one) 2019-05 008 00:00: 00 No 40mg [facility] Kenalog (Triamcinol one) Kenalog (Triamcinol one) 2019-05 008 00:00: 00 No 40mg [facility] Kenalog (Triamcinol one) Kenalog (Triamcinol one) 2019-05 008 00:00: 00 No 40mg [facility] Kenalog (Triamcinol one) Kenalog (Triamcinol one) 2019-05 0-08 00:00: 00 No 40mg [facility] Kenalog (Triamcinol one) Kenalog (Triamcinol one) 2019-05 0-08 00:00: 00 No 40mg [facility] Montelukast Sodium Montelukast Sodium Yes Harshil Dunne 1 tablet [facility] Lumigan Lumigan Yes Harshil Dunne 1 drop into affected eye in the evening [facility] Albuterol Sulfate Albuterol Sulfate Yes Harshil Dunne 2 puff as needed [facility] Azopt Azopt Yes Harshil Dunne 1 drop into affected eye [facility] Triamcinolo ne Acetonide Triamcinolo ne Acetonide Yes Harshil Dunne 1 applicatio n [facility] Loratadine Loratadine Yes Harshil Dunne TOME LAKHWINDER TABLETA TODOS LOS D? [facility] Amlodipine Besylate Amlodipine Besylate Yes Harshil Dunne 1 tablet [facility] Triamcinolo ne [place] Triamcinolo ne Acetonide Yes Harshil Dunne 1 applicatio n [facility] Meclizine HCl Meclizine HCl Yes Harshil Dunne 1 tablet as needed [facility] Pravastatin Sodium Pravastatin Sodium Yes Harshil Dunne TAKE 1 TABLET (40 MG) BY MOUTH DAILY [facility] Finasteride Finasteride Yes Harshil Dunne 1 tablet [facility] Lumigan 0.01 % Lumigan 0.01 % No 1{drop_ into_af fected_ eye_in_ the_eve sharon} QD Lumigan 0.01 % Pravastatin Sodium 40 MG Pravastatin Sodium 40 MG No QD Pravastati n Sodium 40 MG Albuterol Sulfate 108 (90 Base) MCG/ACT Albuterol Sulfate 108 (90 Base) MCG/ACT No 2{puff_ as_need ed} Albuterol Sulfate 108 (90 Base) MCG/ACT Meclizine HCl 25 MG Meclizine HCl 25 MG No 1{table t_as_ne eded} Meclizine HCl 25 MG Azopt 1 % Azopt 1 % No 1{dr op_ into_af fected_ eye} TID Azopt 1 % Finasteride 5 MG Finasteride 5 MG No Finasterid e 5 MG amLODIPine Besylate 5 MG amLODIPine Besylate 5 MG No 1{table t} QD amLODIPine Besylate 5 MG Pravastatin Sodium 40 MG Pravastatin Sodium 40 MG No Pravastati n Sodium 40 MG Triamcinolo ne Acetonide 0.1 % Triamcinolo ne Acetonide 0.1 % No 1{appli cation} Triamcinol one Acetonide 0.1 % Triamcinolo ne Acetonide 0.5 % Triamcinolo ne Acetonide 0.5 % No 1{appli cation} Triamcinol one Acetonide 0.5 % Montelukast Sodium 10 MG Montelukast Sodium 10 MG No 1{table t} QD Montelukas t Sodium 10 MG amLODIPine Besylate 5 MG amLODIPine Besylate 5 MG No amLODIPine Besylate 5 MG Loratadine 10 MG Loratadine 10 MG No QD Loratadine 10 MG Montelukast Sodium 10 MG Montelukast Sodium 10 MG No 1{table t} QD Montelukas t Sodium 10 MG Lumigan 0.01 % Lumigan 0.01 % No 1{drop_ into_af fected_ eye_in_ the_[facility] [place]} QD Lumigan 0.01 % Pravastatin Sodium 40 MG Pravastatin Sodium 40 MG No QD Pravastati n Sodium 40 MG Albuterol Sulfate 108 (90 Base) MCG/ACT Albuterol Sulfate 108 (90 Base) MCG/ACT No 2{puff_ as_need ed} Albuterol Sulfate 108 (90 Base) MCG/ACT Meclizine HCl 25 MG Meclizine HCl 25 MG No 1{table t_as_ne eded} Meclizine HCl 25 MG Pravastatin Sodium 40 MG Pravastatin Sodium 40 MG No Pravastati n Sodium 40 MG Loratadine 10 MG Loratadine 10 MG No QD Loratadine 10 MG Montelukast Sodium 10 MG Montelukast Sodium 10 MG No 1{table t} QD Montelukas t Sodium 10 MG amLODIPine Besylate 5 MG amLODIPine Besylate 5 MG No amLODIPine Besylate 5 MG Albuterol Sulfate 108 (90 Base) MCG/ACT Albuterol Sulfate 108 (90 Base) MCG/ACT No 2{puff_ as_need ed} Albuterol Sulfate 108 (90 Base) MCG/ACT amLODIPine Besylate 5 MG amLODIPine Besylate 5 MG No 1{table t} QD amLODIPine Besylate 5 MG Montelukast Sodium 10 MG Montelukast Sodium 10 MG No 1{table t} QD Montelukas t Sodium 10 MG Meclizine HCl 25 MG Meclizine HCl 25 MG No 1{table t_as_ne eded} Meclizine HCl 25 MG Finasteride 5 MG Finasteride 5 MG No Finasterid e 5 MG Lumigan 0.01 % Lumigan 0.01 % No 1{drop_ into_af fected_ eye_in_ the_[facility] [place]} QD Lumigan 0.01 % Azopt 1 % Azopt 1 % No 1{dr op_ into_af fected_ eye} TID Azopt 1 % Triamcinolo ne Acetonide 0.5 % Triamcinolo ne Acetonide 0.5 % No 1{appli cation} Triamcinol one Acetonide 0.5 % Triamcinolo ne Acetonide 0.1 % Triamcinolo ne Acetonide 0.1 % No 1{appli cation} Triamcinol one Acetonide 0.1 % Pravastatin Sodium 40 MG Pravastatin Sodium 40 MG No Pravastati n Sodium 40 MG Loratadine 10 MG Loratadine 10 MG No QD Loratadine 10 MG Montelukast Sodium 10 MG Montelukast Sodium 10 MG No 1{table t} QD Montelukas t Sodium 10 MG amLODIPine Besylate 5 MG amLODIPine Besylate 5 MG No amLODIPine Besylate 5 MG Albuterol Sulfate 108 (90 Base) MCG/ACT Albuterol Sulfate 108 (90 Base) MCG/ACT No 2{puff_ as_need ed} Albuterol Sulfate 108 (90 Base) MCG/ACT amLODIPine Besylate 5 MG amLODIPine Besylate 5 MG No 1{table t} QD amLODIPine Besylate 5 MG Montelukast Sodium 10 MG Montelukast Sodium 10 MG No 1{table t} QD Montelukas t Sodium 10 MG Meclizine HCl 25 MG Meclizine HCl 25 MG No 1{table t_as_ne eded} Meclizine HCl 25 MG Finasteride 5 MG Finasteride 5 MG No Finasterid e 5 MG Lumigan 0.01 % Lumigan 0.01 % No 1{drop_ into_af fected_ eye_in_ the_[facility] [place]} QD Lumigan 0.01 % Azopt 1 % Azopt 1 % No 1{dr op_ into_af fected_ eye} TID Azopt 1 % Triamcinolo ne Acetonide 0.5 % Triamcinolo ne Acetonide 0.5 % No 1{appli cation} Triamcinol one Acetonide 0.5 % Triamcinolo ne Acetonide 0.1 % Triamcinolo ne Acetonide 0.1 % No 1{appli cation} Triamcinol one Acetonide 0.1 % Montelukast Sodium 10 MG Montelukast Sodium 10 MG No 1{table t} QD Montelukas t Sodium 10 MG Triamcinolo ne Acetonide 0.5 % Triamcinolo ne Acetonide 0.5 % No 1{appli cation} Triamcinol one Acetonide 0.5 % Montelukast Sodium 10 MG Montelukast Sodium 10 MG No 1{table t} QD Montelukas t Sodium 10 MG Lumigan 0.01 % Lumigan 0.01 % No 1{drop_ into_af fected_ eye_in_ the[facility]} QD Lumigan 0.01 % Pravastatin Sodium 40 MG Pravastatin Sodium 40 MG No QD Pravastati n Sodium 40 MG amLODIPine Besylate 5 MG amLODIPine Besylate 5 MG No amLODIPine Besylate 5 MG Pravastatin Sodium 40 MG Pravastatin Sodium 40 MG No Pravastati n Sodium 40 MG Albuterol Sulfate 108 (90 Base) MCG/ACT Albuterol Sulfate 108 (90 Base) MCG/ACT No 2{puff_ as_need ed} Albuterol Sulfate 108 (90 Base) MCG/ACT Azopt 1 % Azopt 1 % No 1{dr op_ into_af fected_ eye} TID Azopt 1 % Loratadine 10 MG Loratadine 10 MG No QD Loratadine 10 MG amLODIPine Besylate 5 MG amLODIPine Besylate 5 MG No 1{table t} QD amLODIPine Besylate 5 MG Triamcinolo ne Acetonide 0.1 % Triamcinolo ne Acetonide 0.1 % No 1{appli cation} Triamcinol one Acetonide 0.1 % Finasteride 5 MG Finasteride 5 MG No Finasterid e 5 MG Meclizine HCl 25 MG Meclizine HCl 25 MG No 1{table t_as_ne eded} Meclizine HCl 25 MG Lumigan 0.01 % Lumigan 0.01 % No 1{drop_ into_af fected_ eye_in_ the_[facility] [place]} QD Lumigan 0.01 % Triamcinolo ne Acetonide 0.5 % Triamcinolo ne Acetonide 0.5 % No 1{appli cation} Triamcinol one Acetonide 0.5 % amLODIPine Besylate 5 MG amLODIPine Besylate 5 MG No 1{table t} QD amLODIPine Besylate 5 MG Albuterol Sulfate 108 (90 Base) MCG/ACT Albuterol Sulfate 108 (90 Base) MCG/ACT No 2{puff_ as_need ed} Albuterol Sulfate 108 (90 Base) MCG/ACT Montelukast Sodium 10 MG Montelukast Sodium 10 MG No 1{table t} QD Montelukas t Sodium 10 MG Meclizine HCl 25 MG Meclizine HCl 25 MG No 1{table t_as_ne eded} Meclizine HCl 25 MG Azopt 1 % Azopt 1 % No 1{dr op_ into_af fected_ eye} TID Azopt 1 % Montelukast Sodium 10 MG Montelukast Sodium 10 MG No 1{table t} QD Montelukas t Sodium 10 MG Pravastatin Sodium 40 MG Pravastatin Sodium 40 MG No Pravastati n Sodium 40 MG Loratadine 10 MG Loratadine 10 MG No QD Loratadine 10 MG Finasteride 5 MG Finasteride 5 MG No Finasterid e 5 MG amLODIPine Besylate 5 MG amLODIPine Besylate 5 MG No amLODIPine Besylate 5 MG Triamcinolo ne Acetonide 0.1 % Triamcinolo ne Acetonide 0.1 % No 1{appli cation} Triamcinol one Acetonide 0.1 % Triamcinolo ne Acetonide 0.5 % Triamcinolo ne Acetonide 0.5 % No 1{appli cation} Triamcinol one Acetonide 0.5 % Albuterol Sulfate 108 (90 Base) MCG/ACT Albuterol Sulfate 108 (90 Base) MCG/ACT No 2{puff_ as_need ed} Albuterol Sulfate 108 (90 Base) MCG/ACT Meclizine HCl 25 MG Meclizine HCl 25 MG No 1{table t_as_ne eded} Meclizine HCl 25 MG Pravastatin Sodium 40 MG Pravastatin Sodium 40 MG No Pravastati n Sodium 40 MG Finasteride 5 MG Finasteride 5 MG No Finasterid e 5 MG Azopt 1 % Azopt 1 % No 1{dr op_ into_af fected_ eye} TID Azopt 1 % Montelukast Sodium 10 MG Montelukast Sodium 10 MG No 1{table t} QD Montelukas t Sodium 10 MG Loratadine 10 MG Loratadine 10 MG No QD Loratadine 10 MG Triamcinolo ne Acetonide 0.1 % Triamcinolo ne Acetonide 0.1 % No 1{appli cation} Triamcinol one Acetonide 0.1 % amLODIPine Besylate 5 MG amLODIPine Besylate 5 MG No amLODIPine Besylate 5 MG Lumigan 0.01 % Lumigan 0.01 % No 1{drop_ into_af fected_ eye_in_ the_[facility] [place]} QD Lumigan 0.01 % Triamcinolo ne Acetonide 0.5 % Triamcinolo ne Acetonide 0.5 % No 1{appli cation} Triamcinol one Acetonide 0.5 % Albuterol Sulfate 108 (90 Base) MCG/ACT Albuterol Sulfate 108 (90 Base) MCG/ACT No 2{puff_ as_need ed} Albuterol Sulfate 108 (90 Base) MCG/ACT Meclizine HCl 25 MG Meclizine HCl 25 MG No 1{table t_as_ne eded} Meclizine HCl 25 MG Pravastatin Sodium 40 MG Pravastatin Sodium 40 MG No Pravastati n Sodium 40 MG Finasteride 5 MG Finasteride 5 MG No Finasterid e 5 MG Azopt 1 % Azopt 1 % No 1{dr op_ into_af fected_ eye} TID Azopt 1 % Montelukast Sodium 10 MG Montelukast Sodium 10 MG No 1{table t} QD Montelukas t Sodium 10 MG Loratadine 10 MG Loratadine 10 MG No QD Loratadine 10 MG Triamcinolo ne Acetonide 0.1 % Triamcinolo ne Acetonide 0.1 % No 1{appli cation} Triamcinol one Acetonide 0.1 % amLODIPine Besylate 5 MG amLODIPine Besylate 5 MG No amLODIPine Besylate 5 MG Lumigan 0.01 % Lumigan 0.01 % No 1{drop_ into_af fected_ eye_in_ the_[facility] [place]} QD Lumigan 0.01 % Triamcinolo ne Acetonide 0.5 % Triamcinolo ne Acetonide 0.5 % No 1{appli cation} Triamcinol one Acetonide 0.5 % Albuterol Sulfate 108 (90 Base) MCG/ACT Albuterol Sulfate 108 (90 Base) MCG/ACT No 2{puff_ as_need ed} Albuterol Sulfate 108 (90 Base) MCG/ACT Meclizine HCl 25 MG Meclizine HCl 25 MG No 1{table t_as_ne eded} Meclizine HCl 25 MG Pravastatin Sodium 40 MG Pravastatin Sodium 40 MG No Pravastati n Sodium 40 MG Finasteride 5 MG Finasteride 5 MG No Finasterid e 5 MG Azopt 1 % Azopt 1 % No 1{dr op_ into_af fected_ eye} TID Azopt 1 % Montelukast Sodium 10 MG Montelukast Sodium 10 MG No 1{table t} QD Montelukas t Sodium 10 MG Loratadine 10 MG Loratadine 10 MG No QD Loratadine 10 MG Triamcinolo ne Acetonide 0.1 % Triamcinolo ne Acetonide 0.1 % No 1{appli cation} Triamcinol one Acetonide 0.1 % amLODIPine Besylate 5 MG amLODIPine Besylate 5 MG No amLODIPine Besylate 5 MG Lumigan 0.01 % Lumigan 0.01 % No 1{drop_ into_af fected_ eye_in_ the_[facility] [place]} QD Lumigan 0.01 % Loratadine 10 MG Loratadine 10 MG No QD Loratadine 10 MG Triamcinolo ne Acetonide 0.5 % Triamcinolo ne Acetonide 0.5 % No 1{appli cation} Triamcinol one Acetonide 0.5 % Montelukast Sodium 10 MG Montelukast Sodium 10 MG No 1{table t} QD Montelukas t Sodium 10 MG Lumigan 0.01 % Lumigan 0.01 % No 1{drop_ into_af fected_ eye_in_ the_[facility] [place]} QD Lumigan 0.01 % Montelukast Sodium 10 MG Montelukast Sodium 10 MG No Montelukas t Sodium 10 MG Pravastatin Sodium 40 MG Pravastatin Sodium 40 MG No Pravastati n Sodium 40 MG amLODIPine Besylate 5 MG amLODIPine Besylate 5 MG No amLODIPine Besylate 5 MG Pravastatin Sodium 40 MG Pravastatin Sodium 40 MG No QD Pravastati n Sodium 40 MG amLODIPine Besylate 5 MG amLODIPine Besylate 5 MG No 1{table t} QD amLODIPine Besylate 5 MG Triamcinolo ne Acetonide 0.1 % Triamcinolo ne Acetonide 0.1 % No 1{appli cation} Triamcinol one Acetonide 0.1 % Albuterol Sulfate 108 (90 Base) MCG/ACT Albuterol Sulfate 108 (90 Base) MCG/ACT No 2{puff_ as_need ed} Albuterol Sulfate 108 (90 Base) MCG/ACT Meclizine HCl 25 MG Meclizine HCl 25 MG No 1{table t_as_ne eded} Meclizine HCl 25 MG Azopt 1 % Azopt 1 % No 1{dr op_ into_af fected_ eye} TID Azopt 1 % Finasteride 5 MG Finasteride 5 MG No Finasterid e 5 MG amLODIPine Besylate 5 MG amLODIPine Besylate 5 MG No amLODIPine Besylate 5 MG Montelukast Sodium 10 MG Montelukast Sodium 10 MG No Montelukas t Sodium 10 MG Triamcinolo ne Acetonide 0.1 % Triamcinolo ne Acetonide 0.1 % No 1{appli cation} Triamcinol one Acetonide 0.1 % Azopt 1 % Azopt 1 % No 1{dr op_ into_af fected_ eye} TID Azopt 1 % Finasteride 5 MG Finasteride 5 MG No Finasterid e 5 MG Triamcinolo ne Acetonide 0.5 % Triamcinolo ne Acetonide 0.5 % No 1{appli cation} Triamcinol one Acetonide 0.5 % Pravastatin Sodium 40 MG Pravastatin Sodium 40 MG No Pravastati n Sodium 40 MG amLODIPine Besylate 5 MG amLODIPine Besylate 5 MG No 1{table t} QD amLODIPine Besylate 5 MG Pravastatin Sodium 40 MG Pravastatin Sodium 40 MG No QD Pravastati n Sodium 40 MG Meclizine HCl 25 MG Meclizine HCl 25 MG No 1{table t_as_ne eded} Meclizine HCl 25 MG Albuterol Sulfate 108 (90 Base) MCG/ACT Albuterol Sulfate 108 (90 Base) MCG/ACT No 2{puff_ as_need ed} Albuterol Sulfate 108 (90 Base) MCG/ACT Loratadine 10 MG Loratadine 10 MG No QD Loratadine 10 MG Lumigan 0.01 % Lumigan 0.01 % No 1{drop_ into_af fected_ eye_in_ the_[facility] [place]} QD Lumigan 0.01 % Montelukast Sodium 10 MG Montelukast Sodium 10 MG No 1{table t} QD Montelukas t Sodium 10 MG amLODIPine Besylate 5 MG amLODIPine Besylate 5 MG No amLODIPine Besylate 5 MG Montelukast Sodium 10 MG Montelukast Sodium 10 MG No Montelukas t Sodium 10 MG Finasteride 5 MG Finasteride 5 MG No Finasterid e 5 MG Fluticasone Propionate 50 MCG/ACT Fluticasone Propionate 50 MCG/ACT No Fluticason e Propionate 50 MCG/ACT Azopt 1 % Azopt 1 % No 1{dr op_ into_af fected_ eye} TID Azopt 1 % Triamcinolo ne Acetonide 0.5 % Triamcinolo ne Acetonide 0.5 % No 1{appli cation} Triamcinol one Acetonide 0.5 % Pravastatin Sodium 40 MG Pravastatin Sodium 40 MG No Pravastati n Sodium 40 MG amLODIPine Besylate 5 MG amLODIPine Besylate 5 MG No 1{table t} QD amLODIPine Besylate 5 MG Triamcinolo ne Acetonide 0.1 % Triamcinolo ne Acetonide 0.1 % No 1{appli cation} Triamcinol one Acetonide 0.1 % Meclizine HCl 25 MG Meclizine HCl 25 MG No 1{table t_as_ne eded} Meclizine HCl 25 MG Albuterol Sulfate 108 (90 Base) MCG/ACT Albuterol Sulfate 108 (90 Base) MCG/ACT No 2{puff_ as_need ed} Albuterol Sulfate 108 (90 Base) MCG/ACT Loratadine 10 MG Loratadine 10 MG No QD Loratadine 10 MG Lumigan 0.01 % Lumigan 0.01 % No 1{drop_ into_af fected_ eye_in_ the_[facility] [place]} QD Lumigan 0.01 % Pravastatin Sodium 40 MG Pravastatin Sodium 40 MG No QD Pravastati n Sodium 40 MG Montelukast Sodium 10 MG Montelukast Sodium 10 MG No 1{table t} QD Montelukas t Sodium 10 MG amLODIPine Besylate 5 MG amLODIPine Besylate 5 MG No 1{table t} QD amLODIPine Besylate 5 MG Pravastatin Sodium 40 MG Pravastatin Sodium 40 MG No Pravastati n Sodium 40 MG Meclizine HCl 25 MG Meclizine HCl 25 MG No 1{table t_as_ne eded} Meclizine HCl 25 MG Azopt 1 % Azopt 1 % No 1{dr op_ into_af fected_ eye} TID Azopt 1 % Fluticasone Propionate 50 MCG/ACT Fluticasone Propionate 50 MCG/ACT No Fluticason e Propionate 50 MCG/ACT Albuterol Sulfate 108 (90 Base) MCG/ACT Albuterol Sulfate 108 (90 Base) MCG/ACT No 2{puff_ as_need ed} Albuterol Sulfate 108 (90 Base) MCG/ACT Finasteride 5 MG Finasteride 5 MG No Finasterid e 5 MG amLODIPine Besylate 5 MG amLODIPine Besylate 5 MG No amLODIPine Besylate 5 MG Pravastatin Sodium 40 MG Pravastatin Sodium 40 MG No QD Pravastati n Sodium 40 MG Lumigan 0.01 % Lumigan 0.01 % No 1{drop_ into_af fected_ eye_in_ the_[facility] [place]} QD Lumigan 0.01 % Loratadine 10 MG Loratadine 10 MG No QD Loratadine 10 MG Triamcinolo ne Acetonide 0.1 % Triamcinolo ne Acetonide 0.1 % No 1{appli cation} Triamcinol one Acetonide 0.1 % Triamcinolo ne Acetonide 0.5 % Triamcinolo ne Acetonide 0.5 % No 1{appli cation} Triamcinol one Acetonide 0.5 % Montelukast Sodium 10 MG Montelukast Sodium 10 MG No 1{table t} QD Montelukas t Sodium 10 MG Montelukast Sodium 10 MG Montelukast Sodium 10 MG No Montelukas t Sodium 10 MG Triamcinolo ne Acetonide 0.1 % Triamcinolo ne Acetonide 0.1 % No 1{appli cation} Triamcinol one Acetonide 0.1 % Lumigan 0.01 % Lumigan 0.01 % No 1{drop_ into_af fected_ eye_in_ the_[facility] [place]} QD Lumigan 0.01 % Pravastatin Sodium 40 MG Pravastatin Sodium 40 MG No QD Pravastati n Sodium 40 MG Albuterol Sulfate 108 (90 Base) MCG/ACT Albuterol Sulfate 108 (90 Base) MCG/ACT No 2{puff_ as_need ed} Albuterol Sulfate 108 (90 Base) MCG/ACT Montelukast Sodium 10 MG Montelukast Sodium 10 MG No 1{table t} QD Montelukas t Sodium 10 MG Montelukast Sodium 10 MG Montelukast Sodium 10 MG No Montelukas t Sodium 10 MG Meclizine HCl 25 MG Meclizine HCl 25 MG No 1{table t_as_ne eded} Meclizine HCl 25 MG Azopt 1 % Azopt 1 % No 1{dr op_ into_af fected_ eye} TID Azopt 1 % Loratadine 10 MG Loratadine 10 MG No QD Loratadine 10 MG Pravastatin Sodium 40 MG Pravastatin Sodium 40 MG No Pravastati n Sodium 40 MG Triamcinolo ne Acetonide 0.1 % Triamcinolo ne Acetonide 0.1 % No 1{appli cation} Triamcinol one Acetonide 0.1 % Lumigan 0.01 % Lumigan 0.01 % No 1{drop_ into_af fected_ eye_in_ the_[facility] [place]} QD Lumigan 0.01 % Pravastatin Sodium 40 MG Pravastatin Sodium 40 MG No QD Pravastati n Sodium 40 MG Albuterol Sulfate 108 (90 Base) MCG/ACT Albuterol Sulfate 108 (90 Base) MCG/ACT No 2{puff_ as_need ed} Albuterol Sulfate 108 (90 Base) MCG/ACT Montelukast Sodium 10 MG Montelukast Sodium 10 MG No 1{table t} QD Montelukas t Sodium 10 MG Montelukast Sodium 10 MG Montelukast Sodium 10 MG No Montelukas t Sodium 10 MG Meclizine HCl 25 MG Meclizine HCl 25 MG No 1{table t_as_ne eded} Meclizine HCl 25 MG Azopt 1 % Azopt 1 % No 1{dr op_ into_af fected_ eye} TID Azopt 1 % Loratadine 10 MG Loratadine 10 MG No QD Loratadine 10 MG Pravastatin Sodium 40 MG Pravastatin Sodium 40 MG No Pravastati n Sodium 40 MG Triamcinolo ne Acetonide 0.1 % Triamcinolo ne Acetonide 0.1 % No 1{appli cation} Triamcinol one Acetonide 0.1 % Lumigan 0.01 % Lumigan 0.01 % No 1{drop_ into_af fected_ eye_in_ the[facility]} QD Lumigan 0.01 % Pravastatin Sodium 40 MG Pravastatin Sodium 40 MG No QD Pravastati n Sodium 40 MG Albuterol Sulfate 108 (90 Base) MCG/ACT Albuterol Sulfate 108 (90 Base) MCG/ACT No 2{puff_ as_need ed} Albuterol Sulfate 108 (90 Base) MCG/ACT Montelukast Sodium 10 MG Montelukast Sodium 10 MG No 1{table t} QD Montelukas t Sodium 10 MG Montelukast Sodium 10 MG Montelukast Sodium 10 MG No Montelukas t Sodium 10 MG Meclizine HCl 25 MG Meclizine HCl 25 MG No 1{table t_as_ne eded} Meclizine HCl 25 MG Azopt 1 % Azopt 1 % No 1{dr op_ into_af fected_ eye} TID Azopt 1 % Loratadine 10 MG Loratadine 10 MG No QD Loratadine 10 MG Pravastatin Sodium 40 MG Pravastatin Sodium 40 MG No Pravastati n Sodium 40 MG Albuterol Sulfate 108 (90 Base) MCG/ACT Albuterol Sulfate 108 (90 Base) MCG/ACT No 2{puff_ as_need ed} Albuterol Sulfate 108 (90 Base) MCG/ACT Triamcinolo ne Acetonide 0.1 % Triamcinolo ne Acetonide 0.1 % No 1{appli cation} Triamcinol one Acetonide 0.1 % Meclizine HCl 25 MG Meclizine HCl 25 MG No 1{table t_as_ne eded} Meclizine HCl 25 MG Montelukast Sodium 10 MG Montelukast Sodium 10 MG No 1{table t} QD Montelukas t Sodium 10 MG Loratadine 10 MG Loratadine 10 MG No QD Loratadine 10 MG Finasteride 5 MG Finasteride 5 MG No Finasterid e 5 MG Pravastatin Sodium 40 MG Pravastatin Sodium 40 MG No QD Pravastati n Sodium 40 MG amLODIPine Besylate 5 MG amLODIPine Besylate 5 MG No amLODIPine Besylate 5 MG Pravastatin Sodium 40 MG Pravastatin Sodium 40 MG No Pravastati n Sodium 40 MG Montelukast Sodium 10 MG Montelukast Sodium 10 MG No Montelukas t Sodium 10 MG Lumigan 0.01 % Lumigan 0.01 % No 1{drop_ into_af fected_ eye_in_ the_[facility] [place]} QD Lumigan 0.01 % Azopt 1 % Azopt 1 % No 1{dr op_ into_af fected_ eye} TID Azopt 1 % Telmisartan 20 MG Telmisartan 20 MG No 1{table t} QD Telmisarta n 20 MG Albuterol Sulfate HFA 108 (90 Base) MCG/ACT Albuterol Sulfate HFA 108 (90 Base) MCG/ACT No Albuterol Sulfate HFA 108 (90 Base) MCG/ACT Albuterol Sulfate 108 (90 Base) MCG/ACT Albuterol Sulfate 108 (90 Base) MCG/ACT No 2{puff_ as_need ed} Albuterol Sulfate 108 (90 Base) MCG/ACT Lumigan 0.01 % Lumigan 0.01 % No 1{drop_ into_af fected_ eye_in_ the_[facility] [place]} QD Lumigan 0.01 % Finasteride 5 MG Finasteride 5 MG No Finasterid e 5 MG Triamcinolo ne Acetonide 0.1 % Triamcinolo ne Acetonide 0.1 % No Triamcinol one Acetonide 0.1 % Pravastatin Sodium 40 MG Pravastatin Sodium 40 MG No Pravastati n Sodium 40 MG Telmisartan 20 MG Telmisartan 20 MG No 1{table t} QD Telmisarta n 20 MG amLODIPine Besylate 5 MG amLODIPine Besylate 5 MG No amLODIPine Besylate 5 MG Loratadine 10 MG Loratadine 10 MG No QD Loratadine 10 MG Meclizine HCl 25 MG Meclizine HCl 25 MG No 1{table t_as_ne eded} Meclizine HCl 25 MG Azopt 1 % Azopt 1 % No 1{dr op_ into_af fected_ eye} TID Azopt 1 % Montelukast Sodium 10 MG Montelukast Sodium 10 MG No Montelukas t Sodium 10 MG Albuterol Sulfate HFA 108 (90 Base) MCG/ACT Albuterol Sulfate HFA 108 (90 Base) MCG/ACT No Albuterol Sulfate HFA 108 (90 Base) MCG/ACT Montelukast Sodium 10 MG Montelukast Sodium 10 MG No 1{table t} QD Montelukas t Sodium 10 MG Albuterol Sulfate 108 (90 Base) MCG/ACT Albuterol Sulfate 108 (90 Base) MCG/ACT No 2{puff_ as_need ed} Albuterol Sulfate 108 (90 Base) MCG/ACT [place]igan 0.01 % Lumigan 0.01 % No 1{drop_ into_af fected_ eye_in_ the_[facility] [place]} QD Lumigan 0.01 % Finasteride 5 MG Finasteride 5 MG No Finasterid e 5 MG Triamcinolo ne Acetonide 0.1 % Triamcinolo ne Acetonide 0.1 % No Triamcinol one Acetonide 0.1 % Pravastatin Sodium 40 MG Pravastatin Sodium 40 MG No Pravastati n Sodium 40 MG Telmisartan 20 MG Telmisartan 20 MG No 1{table t} QD Telmisarta n 20 MG amLODIPine Besylate 5 MG amLODIPine Besylate 5 MG No amLODIPine Besylate 5 MG Loratadine 10 MG Loratadine 10 MG No QD Loratadine 10 MG Meclizine HCl 25 MG Meclizine HCl 25 MG No 1{table t_as_ne eded} Meclizine HCl 25 MG Azopt 1 % Azopt 1 % No 1{dr op_ into_af fected_ eye} TID Azopt 1 % Montelukast Sodium 10 MG Montelukast Sodium 10 MG No Montelukas t Sodium 10 MG Albuterol Sulfate HFA 108 (90 Base) MCG/ACT Albuterol Sulfate HFA 108 (90 Base) MCG/ACT No Albuterol Sulfate HFA 108 (90 Base) MCG/ACT Montelukast Sodium 10 MG Montelukast Sodium 10 MG No 1{table t} QD Montelukas t Sodium 10 MG Albuterol Sulfate 108 (90 Base) MCG/ACT Albuterol Sulfate 108 (90 Base) MCG/ACT No 2{puff_ as_need ed} Albuterol Sulfate 108 (90 Base) MCG/ACT [place]igan 0.01 % Lumigan 0.01 % No 1{drop_ into_af fected_ eye_in_ the_[facility] [place]} QD Lumigan 0.01 % Finasteride 5 MG Finasteride 5 MG No Finasterid e 5 MG Triamcinolo ne Acetonide 0.1 % Triamcinolo ne Acetonide 0.1 % No Triamcinol one Acetonide 0.1 % Montelukast Sodium 10 MG Montelukast Sodium 10 MG No Montelukas t Sodium 10 MG Telmisartan 20 MG Telmisartan 20 MG No 1{table t} QD Telmisarta n 20 MG amLODIPine Besylate 5 MG amLODIPine Besylate 5 MG No amLODIPine Besylate 5 MG Loratadine 10 MG Loratadine 10 MG No QD Loratadine 10 MG Meclizine HCl 25 MG Meclizine HCl 25 MG No 1{table t_as_ne eded} Meclizine HCl 25 MG Azopt 1 % Azopt 1 % No 1{dr op_ into_af fected_ eye} TID Azopt 1 % Pravastatin Sodium 40 MG Pravastatin Sodium 40 MG No Pravastati n Sodium 40 MG Albuterol Sulfate HFA 108 (90 Base) MCG/ACT Albuterol Sulfate HFA 108 (90 Base) MCG/ACT No Albuterol Sulfate HFA 108 (90 Base) MCG/ACT Montelukast Sodium 10 MG Montelukast Sodium 10 MG No 1{table t} QD Montelukas t Sodium 10 MG Albuterol Sulfate 108 (90 Base) MCG/ACT Albuterol Sulfate 108 (90 Base) MCG/ACT No 2{puff_ as_need ed} Albuterol Sulfate 108 (90 Base) MCG/ACT [place]igan 0.01 % Lumigan 0.01 % No 1{drop_ into_af fected_ eye_in_ the_[facility] [place]} QD Lumigan 0.01 % Finasteride 5 MG Finasteride 5 MG No Finasterid e 5 MG Triamcinolo ne Acetonide 0.1 % Triamcinolo ne Acetonide 0.1 % No Triamcinol one Acetonide 0.1 % Montelukast Sodium 10 MG Montelukast Sodium 10 MG No Montelukas t Sodium 10 MG Telmisartan 20 MG Telmisartan 20 MG No 1{table t} QD Telmisarta n 20 MG amLODIPine Besylate 5 MG amLODIPine Besylate 5 MG No amLODIPine Besylate 5 MG Loratadine 10 MG Loratadine 10 MG No QD Loratadine 10 MG Meclizine HCl 25 MG Meclizine HCl 25 MG No 1{table t_as_ne eded} Meclizine HCl 25 MG Azopt 1 % Azopt 1 % No 1{dr op_ into_af fected_ eye} TID Azopt 1 % Pravastatin Sodium 40 MG Pravastatin Sodium 40 MG No Pravastati n Sodium 40 MG Albuterol Sulfate HFA 108 (90 Base) MCG/ACT Albuterol Sulfate HFA 108 (90 Base) MCG/ACT No Albuterol Sulfate HFA 108 (90 Base) MCG/ACT Montelukast Sodium 10 MG Montelukast Sodium 10 MG No 1{table t} QD Montelukas t Sodium 10 MG Albuterol Sulfate 108 (90 Base) MCG/ACT Albuterol Sulfate 108 (90 Base) MCG/ACT No 2{puff_ as_need ed} Albuterol Sulfate 108 (90 Base) MCG/ACT Lumigan 0.01 % Lumigan 0.01 % No 1{drop_ into_af fected_ eye_in_ the_eve sharon} QD Lumigan 0.01 % Finasteride 5 MG Finasteride 5 MG No Finasterid e 5 MG Triamcinolo ne Acetonide 0.1 % Triamcinolo ne Acetonide 0.1 % No Triamcinol one Acetonide 0.1 % Montelukast Sodium 10 MG Montelukast Sodium 10 MG No Montelukas t Sodium 10 MG Telmisartan 20 MG Telmisartan 20 MG No 1{table t} QD Telmisarta n 20 MG amLODIPine Besylate 5 MG amLODIPine Besylate 5 MG No amLODIPine Besylate 5 MG Loratadine 10 MG Loratadine 10 MG No QD Loratadine 10 MG Meclizine HCl 25 MG Meclizine HCl 25 MG No 1{table t_as_ne eded} Meclizine HCl 25 MG Azopt 1 % Azopt 1 % No 1{dr op_ into_af fected_ eye} TID Azopt 1 % Pravastatin Sodium 40 MG Pravastatin Sodium 40 MG No Pravastati n Sodium 40 MG Albuterol Sulfate HFA 108 (90 Base) MCG/ACT Albuterol Sulfate HFA 108 (90 Base) MCG/ACT No Albuterol Sulfate HFA 108 (90 Base) MCG/ACT Montelukast Sodium 10 MG Montelukast Sodium 10 MG No 1{table t} QD Montelukas t Sodium 10 MG amLODIPine Besylate 5 MG amLODIPine Besylate 5 MG No amLODIPine Besylate 5 MG Albuterol Sulfate 108 (90 Base) MCG/ACT Albuterol Sulfate 108 (90 Base) MCG/ACT No 2{puff_ as_need ed} Albuterol Sulfate 108 (90 Base) MCG/ACT Lumigan 0.01 % Lumigan 0.01 % No 1{drop_ into_af fected_ eye_in_ the_eve sharon} QD Lumigan 0.01 % Finasteride 5 MG Finasteride 5 MG No Finasterid e 5 MG Triamcinolo ne Acetonide 0.1 % Triamcinolo ne Acetonide 0.1 % No Triamcinol one Acetonide 0.1 % Montelukast Sodium 10 MG Montelukast Sodium 10 MG No Montelukas t Sodium 10 MG Telmisartan 20 MG Telmisartan 20 MG No 1{table t} QD Telmisarta n 20 MG Montelukast Sodium 10 MG Montelukast Sodium 10 MG No Montelukas t Sodium 10 MG amLODIPine Besylate 5 MG amLODIPine Besylate 5 MG No amLODIPine Besylate 5 MG Loratadine 10 MG Loratadine 10 MG No QD Loratadine 10 MG Meclizine HCl 25 MG Meclizine HCl 25 MG No 1{table t_as_ne eded} Meclizine HCl 25 MG Azopt 1 % Azopt 1 % No 1{dr op_ into_af fected_ eye} TID Azopt 1 % Pravastatin Sodium 40 MG Pravastatin Sodium 40 MG No Pravastati n Sodium 40 MG Albuterol Sulfate HFA 108 (90 Base) MCG/ACT Albuterol Sulfate HFA 108 (90 Base) MCG/ACT No Albuterol Sulfate HFA 108 (90 Base) MCG/ACT Montelukast Sodium 10 MG Montelukast Sodium 10 MG No 1{table t} QD Montelukas t Sodium 10 MG Finasteride 5 MG Finasteride 5 MG No Finasterid e 5 MG Fluticasone Propionate 50 MCG/ACT Fluticasone Propionate 50 MCG/ACT No Fluticason e Propionate 50 MCG/ACT Albuterol Sulfate 108 (90 Base) MCG/ACT Albuterol Sulfate 108 (90 Base) MCG/ACT No 2{puff_ as_need ed} Albuterol Sulfate 108 (90 Base) MCG/ACT Lumigan 0.01 % Lumigan 0.01 % No 1{drop_ into_af fected_ eye_in_ the_ev sharon} QD Lumigan 0.01 % Finasteride 5 MG Finasteride 5 MG No Finasterid e 5 MG Triamcinolo ne Acetonide 0.1 % Triamcinolo ne Acetonide 0.1 % No Triamcinol one Acetonide 0.1 % Montelukast Sodium 10 MG Montelukast Sodium 10 MG No Montelukas t Sodium 10 MG Telmisartan 20 MG Telmisartan 20 MG No 1{table t} QD Telmisarta n 20 MG amLODIPine Besylate 5 MG amLODIPine Besylate 5 MG No amLODIPine Besylate 5 MG Loratadine 10 MG Loratadine 10 MG No QD Loratadine 10 MG Azopt 1 % Azopt 1 % No 1{dr op_ into_af fected_ eye} TID Azopt 1 % Meclizine HCl 25 MG Meclizine HCl 25 MG No 1{table t_as_ne eded} Meclizine HCl 25 MG Azopt 1 % Azopt 1 % No 1{dr op_ into_af fected_ eye} TID Azopt 1 % Pravastatin Sodium 40 MG Pravastatin Sodium 40 MG No Pravastati n Sodium 40 MG Albuterol Sulfate HFA 108 (90 Base) MCG/ACT Albuterol Sulfate HFA 108 (90 Base) MCG/ACT No Albuterol Sulfate HFA 108 (90 Base) MCG/ACT Montelukast Sodium 10 MG Montelukast Sodium 10 MG No 1{table t} QD Montelukas t Sodium 10 MG Triamcinolo ne Acetonide 0.5 % Triamcinolo ne Acetonide 0.5 % No 1{appli cation} Triamcinol one Acetonide 0.5 % Pravastatin Sodium 40 MG Pravastatin Sodium 40 MG No Pravastati n Sodium 40 MG amLODIPine Besylate 5 MG amLODIPine Besylate 5 MG No amLODIPine Besylate 5 MG Finasteride 5 MG Finasteride 5 MG No Finasterid e 5 MG Triamcinolo ne Acetonide 0.1 % Triamcinolo ne Acetonide 0.1 % No Triamcinol one Acetonide 0.1 % Montelukast Sodium 10 MG Montelukast Sodium 10 MG No Montelukas t Sodium 10 MG Azopt 1 % Azopt 1 % No 1{dr op_ into_af fected_ eye} TID Azopt 1 % amLODIPine Besylate 5 MG amLODIPine Besylate 5 MG No 1{table t} QD amLODIPine Besylate 5 MG Telmisartan 20 MG Telmisartan 20 MG No 1{table t} QD Telmisarta n 20 MG Albuterol Sulfate HFA 108 (90 Base) MCG/ACT Albuterol Sulfate HFA 108 (90 Base) MCG/ACT No Albuterol Sulfate HFA 108 (90 Base) MCG/ACT Montelukast Sodium 10 MG Montelukast Sodium 10 MG No 1{table t} QD Montelukas t Sodium 10 MG Lumigan 0.01 % Lumigan 0.01 % No 1{drop_ into_af fected_ eye_in_ the_eve sharon} QD Lumigan 0.01 % Loratadine 10 MG Loratadine 10 MG No QD Loratadine 10 MG Pravastatin Sodium 40 MG Pravastatin Sodium 40 MG No Pravastati n Sodium 40 MG Meclizine HCl 25 MG Meclizine HCl 25 MG No 1{table t_as_ne eded} Meclizine HCl 25 MG Albuterol Sulfate 108 (90 Base) MCG/ACT Albuterol Sulfate 108 (90 Base) MCG/ACT No 2{puff_ as_need ed} Albuterol Sulfate 108 (90 Base) MCG/ACT Triamcinolo ne Acetonide 0.1 % Triamcinolo ne Acetonide 0.1 % No 1{appli cation} Triamcinol one Acetonide 0.1 % Meclizine HCl 25 MG Meclizine HCl 25 MG No 1{table t_as_ne eded} Meclizine HCl 25 MG Albuterol Sulfate 108 (90 Base) MCG/ACT Albuterol Sulfate 108 (90 Base) MCG/ACT No 2{puff_ as_need ed} Albuterol Sulfate 108 (90 Base) MCG/ACT amLODIPine Besylate 5 MG amLODIPine Besylate 5 MG No amLODIPine Besylate 5 MG Montelukast Sodium 10 MG Montelukast Sodium 10 MG No 1{table t} QD Montelukas t Sodium 10 MG Finasteride 5 MG Finasteride 5 MG No Finasterid e 5 MG Triamcinolo ne Acetonide 0.1 % Triamcinolo ne Acetonide 0.1 % No Triamcinol one Acetonide 0.1 % Telmisartan 20 MG Telmisartan 20 MG No 1{table t} QD Telmisarta n 20 MG Albuterol Sulfate 108 (90 Base) MCG/ACT Albuterol Sulfate 108 (90 Base) MCG/ACT No 2{puff_ as_need ed} Albuterol Sulfate 108 (90 Base) MCG/ACT Montelukast Sodium 10 MG Montelukast Sodium 10 MG No Montelukas t Sodium 10 MG Meclizine HCl 25 MG Meclizine HCl 25 MG No 1{table t_as_ne eded} Meclizine HCl 25 MG Pravastatin Sodium 40 MG Pravastatin Sodium 40 MG No Pravastati n Sodium 40 MG Loratadine 10 MG Loratadine 10 MG No QD Loratadine 10 MG Lumigan 0.01 % Lumigan 0.01 % No 1{drop_ into_af fected_ eye_in_ the_eve sharon} QD Lumigan 0.01 % Azopt 1 % Azopt 1 % No 1{dr op_ into_af fected_ eye} TID Azopt 1 % Albuterol Sulfate HFA 108 (90 Base) MCG/ACT Albuterol Sulfate HFA 108 (90 Base) MCG/ACT No Albuterol Sulfate HFA 108 (90 Base) MCG/ACT Loratadine 10 MG Loratadine 10 MG No QD Loratadine 10 MG Lumigan 0.01 % Lumigan 0.01 % No 1{drop_ into_af fected_ eye_in_ the_eve sharon} QD Lumigan 0.01 % Pravastatin Sodium 40 MG Pravastatin Sodium 40 MG No QD Pravastati n Sodium 40 MG amLODIPine Besylate 5 MG amLODIPine Besylate 5 MG No amLODIPine Besylate 5 MG Montelukast Sodium 10 MG Montelukast Sodium 10 MG No 1{table t} QD Montelukas t Sodium 10 MG Finasteride 5 MG Finasteride 5 MG No Finasterid e 5 MG Triamcinolo ne Acetonide 0.1 % Triamcinolo ne Acetonide 0.1 % No Triamcinol one Acetonide 0.1 % Telmisartan 20 MG Telmisartan 20 MG No 1{table t} QD Telmisarta n 20 MG Albuterol Sulfate 108 (90 Base) MCG/ACT Albuterol Sulfate 108 (90 Base) MCG/ACT No 2{puff_ as_need ed} Albuterol Sulfate 108 (90 Base) MCG/ACT Montelukast Sodium 10 MG Montelukast Sodium 10 MG No Montelukas t Sodium 10 MG Montelukast Sodium 10 MG Montelukast Sodium 10 MG No 1{table t} QD Montelukas t Sodium 10 MG Meclizine HCl 25 MG Meclizine HCl 25 MG No 1{table t_as_ne eded} Meclizine HCl 25 MG Pravastatin Sodium 40 MG Pravastatin Sodium 40 MG No Pravastati n Sodium 40 MG Lumigan 0.01 % Lumigan 0.01 % No 1{drop_ into_af fected_ eye_in_ the_eve sharon} QD Lumigan 0.01 % Azopt 1 % Azopt 1 % No 1{dr op_ into_af fected_ eye} TID Azopt 1 % Albuterol Sulfate HFA 108 (90 Base) MCG/ACT Albuterol Sulfate HFA 108 (90 Base) MCG/ACT No Albuterol Sulfate HFA 108 (90 Base) MCG/ACT Loratadine 10 MG Loratadine 10 MG No QD Loratadine 10 MG Azopt 1 % Azopt 1 % No 1{ op_ into_af fected_ eye} TID Azopt 1 % Finasteride 5 MG Finasteride 5 MG No Finasterid e 5 MG amLODIPine Besylate 5 MG amLODIPine Besylate 5 MG No 1{table t} QD amLODIPine Besylate 5 MG Pravastatin Sodium 40 MG Pravastatin Sodium 40 MG No Pravastati n Sodium 40 MG Triamcinolo ne Acetonide 0.1 % Triamcinolo ne Acetonide 0.1 % No 1{appli cation} Triamcinol one Acetonide 0.1 % Triamcinolo ne Acetonide 0.5 % Triamcinolo ne Acetonide 0.5 % No 1{appli cation} Triamcinol one Acetonide 0.5 % Montelukast Sodium 10 MG Montelukast Sodium 10 MG No 1{table t} QD Montelukas t Sodium 10 MG amLODIPine Besylate 5 MG amLODIPine Besylate 5 MG No amLODIPine Besylate 5 MG Loratadine 10 MG Loratadine 10 MG No QD Loratadine 10 MG Montelukast Sodium 10 MG Montelukast Sodium 10 MG No 1{table t} QD Montelukas t Sodium 10 MG Finasteride 5 MG Finasteride 5 MG 09-19 00:00 :00 No Finasterid e 5 MG Finasteride 5 MG Finasteride 5 MG 09-19 00:00 :00 No Finasterid e 5 MG Finasteride 5 MG Finasteride 5 MG 09-19 00:00 :00 No Finasterid e 5 MG Vital Signs Vital Name Observation Time Observation Value Comments S ource height 2023-07-18 09:30:00 65 [in_i] Commo n [facility] weight 2023-07-18 09:30:00 131.7 [lb_av] Co mmon [facility] temperature 2023-07-18 09:30:00 98.3 [degF] Com mon [facility] bmi 2023-07-18 09:30:00 21.91 kg/m2 Comm on [facility] oximetry 2023-07-18 09:30:00 99 % Commo n [facility] respiratory rate 2023-07-18 09:30:00 17 /min Common [facility] blood pressure systolic 2023-07-18 09:30:00 139 mm[Hg] Common [facility] blood pressure diastolic 2023-07-18 09:30:00 67 mm[Hg] Common [facility] height 2023-07-18 09:30:00 65 [in_i] Commo n [facility] weight 2023-07-18 09:30:00 131.7 [lb_av] Co on [facility] temperature 2023-07-18 09:30:00 98.3 [degF] Com [facility] bmi 2023-07-18 09:30:00 21.91 kg/m2 Comm on [facility] oximetry 2023-07-18 09:30:00 99 % Commo n [facility] respiratory rate 2023-07-18 09:30:00 17 /min [facility] blood pressure systolic 2023-07-18 09:30:00 139 mm[Hg] [facility] blood pressure diastolic 2023-07-18 09:30:00 67 mm[Hg] Common [facility] height 2023-03-06 13:30:00 65 [in_i] Commo n [facility] weight 2023-03-06 13:30:00 137.8 [lb_av] Co mmon [facility] temperature 2023-03-06 13:30:00 98.9 [degF] Com [facility] bmi 2023-03-06 13:30:00 22.93 kg/m2 Comm on [facility] oximetry 2023-03-06 13:30:00 99 % Commo n [facility] blood pressure systolic 2023-03-06 13:30:00 130 mm[Hg] Common [facility] blood pressure diastolic 2023-03-06 13:30:00 60 mm[Hg] Common [facility] height 2023-01-18 11:00:00 65 [in_i] Commo n [facility] weight 2023-01-18 11:00:00 136.0 [lb_av] Co mmon [facility] temperature 2023-01-18 11:00:00 98.4 [degF] Com mon [facility] bmi 2023-01-18 11:00:00 22.63 kg/m2 Comm on [facility] oximetry 2023-01-18 11:00:00 98 % Commo n [facility] respiratory rate 2023-01-18 11:00:00 18 /min [facility] blood pressure systolic 2023-01-18 11:00:00 139 mm[Hg] Common [facility] blood pressure diastolic 2023-01-18 11:00:00 64 mm[Hg] Common [facility] height 2023-01-03 09:20:00 65 [in_i] Commo n [facility] weight 2023-01-03 09:20:00 135.8 [lb_av] Co mmon [facility] temperature 2023-01-03 09:20:00 98.4 [degF] Com mon [facility] bmi 2023-01-03 09:20:00 22.6 kg/m2 Commo n [facility] oximetry 2023-01-03 09:20:00 99 % Commo n [facility] respiratory rate 2023-01-03 09:20:00 17 /min [facility] blood pressure systolic 2023-01-03 09:20:00 139 mm[Hg] Common [facility] blood pressure diastolic 2023-01-03 09:20:00 73 mm[Hg] Common [facility] height 2022-10-19 11:00:00 65 [in_i] Commo n [facility] weight 2022-10-19 11:00:00 139.0 [lb_av] Co on [facility] temperature 2022-10-19 11:00:00 98.1 [degF] Com mon [facility] bmi 2022-10-19 11:00:00 23.13 kg/m2 Comm on [facility] oximetry 2022-10-19 11:00:00 98 % Commo n [facility] respiratory rate 2022-10-19 11:00:00 18 /min [facility] blood pressure systolic 2022-10-19 11:00:00 138 mm[Hg] Common [facility] blood pressure diastolic 2022-10-19 11:00:00 72 mm[Hg] Common [facility] height 2022-06-21 10:20:00 65 [in_i] Commo n [facility] weight 2022-06-21 10:20:00 137.5 [lb_av] Co on [facility] temperature 2022-06-21 10:20:00 97.3 [degF] Com [facility] bmi 2022-06-21 10:20:00 22.88 kg/m2 Comm on [facility] oximetry 2022-06-21 10:20:00 99 % Commo n [facility] respiratory rate 2022-06-21 10:20:00 18 /min Common [facility] blood pressure systolic 2022-06-21 10:20:00 139 mm[Hg] Common [facility] blood pressure diastolic 2022-06-21 10:20:00 72 mm[Hg] Common [facility] height 2022-06-21 10:30:00 65 [in_i] Commo n [facility] weight 2022-06-21 10:30:00 137.5 [lb_av] Co mmon [facility] temperature 2022-06-21 10:30:00 97.3 [degF] Com mon [facility] bmi 2022-06-21 10:30:00 22.88 kg/m2 Comm on [facility] oximetry 2022-06-21 10:30:00 99 % Commo n [facility] respiratory rate 2022-06-21 10:30:00 18 /min Common [facility] blood pressure systolic 2022-06-21 10:30:00 139 mm[Hg] Common [facility] blood pressure diastolic 2022-06-21 10:30:00 72 mm[Hg] Common [facility] height 2022-03-01 10:50:00 65 [in_i] Commo n [facility] weight 2022-03-01 10:50:00 138.6 [facility]lb[facility]av[facility]-01 10:50:00 97.9 [degF] Com mon [facility] bmi 2022-03-01 10:50:00 23.06 kg/m2 Comm on [facility] oximetry 2022-03-01 10:50:00 100 % Commo n [facility] respiratory rate 2022-03-01 10:50:00 17 /min Common [facility] blood pressure systolic 2022-03-01 10:50:00 137 mm[Hg] [facility] blood pressure diastolic 2022-03-01 10:50:00 71 mm[Hg] [facility] height 2022-02-04 08:50:00 65 [in_i] Commo n [facility] weight 2022-02-04 08:50:00 139.1 [lb_av] Co mmon [facility] temperature 2022-02-04 08:50:00 97.9 [degF] Com mon [facility] bmi 2022-02-04 08:50:00 23.14 kg/m2 Comm on [facility] oximetry 2022-02-04 08:50:00 100 % Commo n [facility] respiratory rate 2022-02-04 08:50:00 18 /min [facility] blood pressure systolic 2022-02-04 08:50:00 132 mm[Hg] [facility] blood pressure diastolic 2022-02-04 08:50:00 73 mm[Hg] Common [facility] height 2021-10-12 10:00:00 65 [in_i] Commo n [facility] weight 2021-10-12 10:00:00 138.2 [lb_av] Co [facility] temperature 2021-10-12 10:00:00 98.1 [degF] Com [facility] bmi 2021-10-12 10:00:00 23 kg/m2 Commo n [facility] oximetry 2021-10-12 10:00:00 99 % Commo n [facility] respiratory rate 2021-10-12 10:00:00 18 /min [facility] blood pressure systolic 2021-10-12 10:00:00 135 mm[Hg] Common [facility] blood pressure diastolic 2021-10-12 10:00:00 76 mm[Hg] [facility] height 2021-06-14 13:20:00 65 [in_i] Commo n [facility] weight 2021-06-14 13:20:00 140.3 [lb_av] Co [facility] temperature 2021-06-14 13:20:00 98.6 [degF] Com [facility] bmi 2021-06-14 13:20:00 23.34 kg/m2 Comm on [facility] oximetry 2021-06-14 13:20:00 98 % Commo n [facility] respiratory rate 2021-06-14 13:20:00 18 /min [facility] blood pressure systolic 2021-06-14 13:20:00 136 mm[Hg] Common [facility] blood pressure diastolic 2021-06-14 13:20:00 72 mm[Hg] [facility] height 2021-06-14 13:20:00 65 [in_i] Commo n [facility] weight 2021-06-14 13:20:00 140.3 [lb_av] Co mmon [facility] temperature 2021-06-14 13:20:00 98.6 [degF] Com mon [facility] bmi 2021-06-14 13:20:00 23.34 kg/m2 Comm on [facility] oximetry 2021-06-14 13:20:00 98 % Commo n [facility] blood pressure systolic 2021-06-14 13:20:00 136 mm[Hg] Common [facility] blood pressure diastolic 2021-06-14 13:20:00 72 mm[Hg] [facility] Encounters Start Date/Time End Date/Time Encounter Type Admission Type Attending Clinicians Care Facility Care Department Encounter ID Source 2023-07-31 14:11:00 Outpatient Chrystal [facility] [id number] [facility] 2023-07-18 10:40:00 Outpatient Chrystal Walker [facility] [id number] [facility] 2023-06-27 13:29:00 Outpatient Harshil Dunne [facility] [id number] [facility] 2023-03-06 13:24:00 Outpatient Harshil Dunne [facility] [id number] [facility] 2023-01-02 13:44:00 Outpatient Dunne, Harshil [facility] [id number] [facility] 2022-06-17 10:26:01 Outpatient Dunne, Harshil [facility] [id number] [facility] 2021-06-16 14:39:24 Outpatient Dunne, Harshil [facility] [id number] [facility] 2021-06-16 14:03:38 Outpatient Dunne, Harshil [facility] [id number] [facility] 2021-06-16 13:44:46 Outpatient Dunne, Harshil [facility] [id number] [facility] 2021-06-16 13:36:15 Outpatient Dunne, Harshil [facility] [id number] [facility] 2021-06-16 13:31:27 Outpatient Dunne, Harshil [facility] [id number] [facility] 2021-06-16 12:56:38 Outpatient Dunne, Harshil [facility] [id number] [facility] 2021-06-16 12:28:06 Outpatient Dunne, Harshil [facility] [id number] [facility] 2021-06-16 12:27:09 Outpatient Dunne, Harshil [facility] [id number] [facility] 2021-06-16 12:25:55 Outpatient Dunne, Harshil [facility] [id number] [facility] 2021-06-16 12:24:00 Outpatient Dunne, Harshil [facility] [id number] [facility] 2021-06-16 12:00:42 Outpatient Dunne, Harshil [facility] [id number] [facility] 2021-06-16 11:45:34 Outpatient Dunne, Harshil [facility] [id number] [facility] 2021-06-16 11:27:29 Outpatient Dunne, Harshil [facility] [id number] [facility] 2021-06-16 11:23:46 Outpatient Dunne, Harshil [facility] [id number] [facility] 2021-06-16 11:16:21 Outpatient Dunne, Harshil [facility] [id number] [facility] 2021-06-16 11:12:14 Outpatient Dunne, Harshil [facility] [id number] [facility] 2023-07-18 00:00:00 2023-07-18 00:00:00 OFFICE VISIT NEW PT LEVEL 4 [facility] [id number] [facility] 2023-07-18 00:00:00 2023-07-18 00:00:00 SUB ANNUAL [facility] VISIT [facility] [id number] [facility] 2023-06-15 00:00:00 2023-06-15 00:00:00 (TEL) [facility] [id number] [facility] 2023-03-06 00:00:00 2023-03-06 00:00:00 (TEL) [facility] [id number] [facility] 2023-03-06 00:00:00 2023-03-06 00:00:00 OFFICE VISIT ESTAB PT LEVEL 3 [facility] [id number] [facility] 2023-01-18 00:00:00 2023-01-18 00:00:00 OFFICE VISIT ESTAB PT LEVEL 4 [facility] [id number] [facility] 2023-01-03 00:00:00 2023-01-03 00:00:00 OFFICE VISIT ESTAB PT LEVEL 4 [facility] [id number] [facility] 2023-01-02 00:00:00 2023-01-02 00:00:00 (TEL) [facility] [id number] [facility] 2022-10-19 00:00:00 2022-10-19 00:00:00 OFFICE VISIT ESTAB PT LEVEL 4 [facility] [id number] [facility] 2022-07-06 00:00:00 2022-07-06 00:00:00 (TEL) [facility] [id number] [facility] 2022-06-21 00:00:00 2022-06-21 00:00:00 OFFICE VISIT ESTAB PT LEVEL 4 [facility] [id number] [facility] 2022-06-21 00:00:00 2022-06-21 00:00:00 SUB ANNUAL [facility] VISIT [facility] [id number] [facility] 2022-06-21 00:00:00 2022-06-21 00:00:00 (TEL) [facility] [id number] [facility] 2022-03-01 00:00:00 2022-03-01 00:00:00 OFFICE VISIT ESTAB PT LEVEL 4 [facility] [id number] [facility] 2022-02-11 00:00:00 2022-02-11 00:00:00 (TEL) [facility] [id number] [facility] 2022-02-04 00:00:00 2022-02-04 00:00:00 OFFICE VISIT EST PT LEVEL 3 [facility] [id number] [facility] 2022-02-03 00:00:00 2022-02-03 00:00:00 (TEL) [facility] [id number] [facility] 2021-10-12 00:00:00 2021-10-12 00:00:00 OFFICE VISIT ESTAB PT LEVEL 4 [facility] [id number] [facility] 2021-07-29 00:00:00 2021-07-29 00:00:00 (TEL) [facility] [id number] [facility] 2021-07-13 00:00:00 2021-07-13 00:00:00 (TEL) [facility] [id number] [facility] 2021-07-05 00:00:00 2021-07-05 00:00:00 (TEL) [facility] [id number] [facility] 2021-06-14 00:00:00 2021-06-14 00:00:00 OFFICE VISIT EST PT LEVEL 3 [facility] [id number] [facility] 2021-06-14 00:00:00 2021-06-14 00:00:00 SUB ANNUAL [facility] VISIT [facility] [id number] [facility] 2021-05-24 00:00:00 2021-05-24 00:00:00 (TEL) [facility] [id number] [facility] 2021-05-20 00:00:00 2021-05-20 00:00:00 (TEL) [facility] [id number] [facility] 2021-03-11 00:00:00 2021-03-11 00:00:00 (TEL) [facility] [id number] [facility] 2021-03-08 00:00:00 2021-03-08 00:00:00 (TEL) [facility] [id number] [facility] 2021-02-15 00:00:00 2021-02-15 00:00:00 Outpatient [facility] [id number] [facility] 2021-01-20 00:00:00 2021-01-20 00:00:00 Outpatient [facility] [id number] [facility] 2020-12-16 00:00:00 2020-12-16 00:00:00 Outpatient [facility] [id number] [facility] 2020-12-16 00:00:00 2020-12-16 00:00:00 Outpatient [facility] [id number] [facility] 2020-09-22 00:00:00 2020-09-22 00:00:00 Outpatient [facility] [id number] [facility] 2020-09-22 00:00:00 2020-09-22 00:00:00 Outpatient [facility] [id number] [facility] 2020-07-22 00:00:00 2020-07-22 00:00:00 Outpatient [facility] [id number] [facility] 2020-07-01 00:00:00 2020-07-01 00:00:00 Outpatient [facility] [id number] [facility] 2020-06-24 00:00:00 2020-06-24 00:00:00 Outpatient [facility] [id number] [facility] 2020-06-23 00:00:00 2020-06-23 00:00:00 Outpatient [facility] [id number] [facility] 2020-06-11 00:00:00 2020-06-11 00:00:00 Outpatient [facility] [id number] [facility] 2020-06-02 00:00:00 2020-06-02 00:00:00 Outpatient [facility] [id number] [facility] 2020-03-18 00:00:00 2020-03-18 00:00:00 Outpatient [facility] [id number] [facility] 2020-03-18 00:00:00 2020-03-18 00:00:00 Outpatient [facility] ST[facility] [id number] [facility] 2020-03-16 00:00:00 2020-03-16 00:00:00 Outpatient [facility] ST[facility]C [id number] [facility] 2020-02-27 00:00:00 2020-02-27 00:00:00 Outpatient [facility] [id number] [facility] 2020-02-24 00:00:00 2020-02-24 00:00:00 Outpatient [facility] ST[facility] [id number] [facility] 2020-02-17 00:00:00 2020-02-17 00:00:00 Outpatient [facility] [id number] [facility] 2020-02-12 00:00:00 2020-02-12 00:00:00 Outpatient [facility] STL[facility]C [id number] [facility] 2020-02-03 09:00:00 2020-02-03 09:00:[address] [facility] [id number] [facility] 2020-01-28 11:00:00 2020-01-28 11:00:00 [facility] [id number] [facility] 2020-01-20 09:00:00 2020-01-20 09:00:[address] [facility] [id number] [facility] 2020-01-13 08:50:00 2020-01-13 08:50:[address] [facility] [id number] [facility] 2020-01-06 09:00:00 2020-01-06 09:00:[address] [facility] [id number] [facility] [facility] 2019-12-30 09:00:00 2019-12-30 09:00:[address] [facility] [id number] [facility] 2019-12-23 08:45:00 2019-12-23 08:45:[address] [facility] [id number] [facility] 2019-12-18 11:30:00 2019-12-18 11:30:[address] [facility] [id number] [facility] 2019-12-16 09:00:00 2019-12-16 09:00:[address] [facility] [id number] [facility] 2019-12-09 09:00:00 2019-12-09 09:00:[address] [facility] [id number] [facility] 2019-12-02 09:30:00 2019-12-02 09:30:[address] [facility] [id number] [facility] 2019-11-25 09:00:00 2019-11-25 09:00:00 [facility] [id number] [facility] 2019-11-18 09:00:00 2019-11-18 09:00:[address] [facility] [id number] [facility] 2019-11-12 11:00:00 2019-11-12 11:00:00 [facility] [id number] [facility] 2019-11-11 10:00:00 2019-11-11 10:00:00 [facility] [id number] [facility] 2019-11-07 11:23:00 2019-11-07 11:23:[address] [facility] [id number] [facility] 2019-11-04 09:00:00 2019-11-04 09:00:[address] [facility] [id number] [facility] 2019-10-28 09:00:00 2019-10-28 09:00:00 [facility] [id number] [facility] 2019-10-22 13:45:00 2019-10-22 13:45:00 [facility] [id number] [facility] 2019-10-15 09:00:00 2019-10-15 09:00:00 [facility] [id number] [facility] 2019-10-07 09:00:00 2019-10-07 09:00:00 [facility] [id number] [facility] 2019-09-30 10:00:00 2019-09-30 10:00:00 [facility] [id number] [facility] 2019-09-23 08:08:00 2019-09-23 08:08:00 [facility] [id number] [facility] 2019-09-18 15:45:00 2019-09-18 15:45:00 [facility] [id number] [facility] 2019-09-18 15:45:00 2019-09-18 15:45:00 [facility] [id number] [facility] 2019-08-08 10:00:00 2019-08-08 10:00:00 [facility] [id number] [facility] 2019 16:38:00 2019 16:38:00 [facility] [id number] [facility] 2019 14:22:00 2019 14:22:00 [facility] [id number] [facility] 2019 14:00:00 2019 14:00:[address] [facility] [id number] [facility] Results Test Description Test Time Test Comments Results Result Co mments Source LIPID PANEL WITH REFLEX DIRECT [id number] 00:00:00* Test Item Value Reference Range Interpretation Comme nts CALC LDL CHOL (test code = 26873-0) 86 MG/DL See_Comment [Automated messa ge] The system which generated this result transmitted reference range: <100 MG/DL. The reference range was not used to interpret this result as normal/abnormal. CHOLESTEROL (test code = 2093-3) 149 MG/DL See_Comment [Automated messa ge] The system which generated this result transmitted reference range: <200 MG/DL. The reference range was not used to interpret this result as normal/abnormal. HDL CHOLESTEROL (test code = 2085-9) 41 MG/DL See_Comment [Automated messa ge] The system which generated this result transmitted reference range: >39 MG/DL. The reference range was not used to interpret this result as normal/abnormal. RISK RATIO LDL/HDL (test code = 21481-4) 2.10 RATIO See_Comment [Automated message] The system which generated this result transmitted reference range: <3.55 RATIO. The reference range was not used to interpret this result as normal/abnormal. TRIGLYCERIDES (test code = 2571-8) 122 MG/DL See_Comment [Automated messa ge] The system which generated this result transmitted reference range: <150 MG/DL. The reference range was not used to interpret this result as normal/abnormal. PATHOLOGIST SMEAR [id number] 00:00:00* Test Item Value Reference Range Interpretation Comme nts BASOPHILS (test code = 64062-2) 0.7 % DIAGNOSIS: (test code = 44928-1) (NOTE) COMMENTS (test code = 91170-8) (NOTE) EOSINOPHILS (test code = 02166-0) 4.6 % HEMATOCRIT (test code = 26413-7) 31.3 % See_Comment L [Automated messa ge] The system which generated this result transmitted reference range: 40.0-51.0 %. The reference range was not used to interpret this result as normal/abnormal. HEMOGLOBIN (test code = 718-7) 10.1 G/DL See_Comment L [Automated messa ge] The system which generated this result transmitted reference range: 13.5-17.0 G/DL. The reference range was not used to interpret this result as normal/abnormal. LYMPHOCYTES (test code = 83267-9) 34.9 % MCH (test code = 62697-2) 30.4 PG See_Comment [Automated messa ge] The system which generated this result transmitted reference range: 25.0-33.0 PG. The reference range was not used to interpret this result as normal/abnormal. MCHC (test code = 58971-5) 32.3 G/DL See_Comment [Automated messa ge] The system which generated this result transmitted reference range: 31.0-36.0 G/DL. The reference range was not used to interpret this result as normal/abnormal. MCV (test code = 34098-9) 94.3 fL See_Comment [Automated messa ge] The system which generated this result transmitted reference range: 80.0-99.0 fL. The reference range was not used to interpret this result as normal/abnormal. MICROSCOPIC DESCRIPTION: (test code = 01644-7) (NOTE) MONOCYTES (test code = 66479-5) 9.2 % NEUTROPHILS (test code = 30408-2) 50.3 % NUCLEATED RBCS (test code = 77518-1) 0.0 /100 WBC'S See_Comment [Automated messa ge] The system which generated this result transmitted reference range: 0.0 /100 WBC'S. The reference range was not used to interpret this result as normal/abnormal. PATHOLOGIST: (test code = 73238-8) (NOTE) PLATELET COUNT (test code = 92095-2) 265 K/UL See_Comment [Automated messa ge] The system which generated this result transmitted reference range: 130-400 K/UL. The reference range was not used to interpret this result as normal/abnormal. RBC (test code = 00712-9) 3.32 M/UL See_Comment L [Automated messa ge] The system which generated this result transmitted reference range: 4.50-6.10 M/UL. The reference range was not used to interpret this result as normal/abnormal. RDW (test code = 45938-0) 12.8 % See_Comment [Automated messa ge] The system which generated this result transmitted reference range: 11.5-15.0 %. The reference range was not used to interpret this result as normal/abnormal. WBC (test code = 30115-2) 7.0 K/UL See_Comment [Automated messa ge] The system which generated this result transmitted reference range: 3.5-11.0 K/UL. The reference range was not used to interpret this result as normal/abnormal. COMPREHENSIVE METABOLIC [id number] 00:00:00* Test Item Value Reference Range Interpretation Comme nts ALBUMIN (test code = 1751-7) 4.4 G/DL See_Comment [Automated messa ge] The system which generated this result transmitted reference range: 3.5-5.2 G/DL. The reference range was not used to interpret this result as normal/abnormal. ALKALINE PHOSPHATASE (test code = 6768-6) 71 U/L See_Comment [Automated message] The system which generated this result transmitted reference range: 40-125 U/L. The reference range was not used to interpret this result as normal/abnormal. BILIRUBIN, TOTAL (test code = 1975-2) 0.3 MG/DL See_Comment [Automated message] The system which generated this result transmitted reference range: <=1.2 MG/DL. The reference range was not used to interpret this result as normal/abnormal. BUN (test code = 3094-0) 32 MG/DL See_Comment H [Automated messa ge] The system which generated this result transmitted reference range: 8-23 MG/DL. The reference range was not used to interpret this result as normal/abnormal. CALCIUM (test code = 95000-7) 9.8 MG/DL See_Comment [Automated messa ge] The system which generated this result transmitted reference range: 8.5-10.5 MG/DL. The reference range was not used to interpret this result as normal/abnormal. CALC A/G RATIO (test code = 1759-0) 1.5 RATIO See_Comment [Automated [employer] ge] The system which generated this result transmitted reference range: 1.0-2.6 RATIO. The reference range was not used to interpret this result as normal/abnormal. CALC BUN/CREAT (test code = 3097-3) 17 RATIO See_Comment [Automated messa ge] The system which generated this result transmitted reference range: 6-28 RATIO. The reference range was not used to interpret this result as normal/abnormal. CALC GLOBULIN (test code = 47353-7) 2.9 G/DL See_Comment [Automated messa ge] The system which generated this result transmitted reference range: 1.9-3.7 G/DL. The reference range was not used to interpret this result as normal/abnormal. CARBON DIOXIDE (test code = 1963-8) 21 MEQ/L See_Comment [Automated messa ge] The system which generated this result transmitted reference range: 19-31 MEQ/L. The reference range was not used to interpret this result as normal/abnormal. CHLORIDE (test code = 2075-0) 111 MEQ/L See_Comment H [Automated messa ge] The system which generated this result transmitted reference range: 95-107 MEQ/L. The reference range was not used to interpret this result as normal/abnormal. CREATININE (test code = 2160-0) 1.92 MG/DL See_Comment H [Automated messa ge] The system which generated this result transmitted reference range: 0.80-1.40 MG/DL. The reference range was not used to interpret this result as normal/abnormal. eGFR (2020 CKD-EPI) (test code = 72408-0) 35 ML/MIN/1.73 See_Comment L [Automated messa ge] The system which generated this result transmitted reference range: >60 ML/MIN/1.73. The reference range was not used to interpret this result as normal/abnormal. GLUCOSE (test code = 1558-6) 106 MG/DL See_Comment H [Automated messa ge] The system which generated this result transmitted reference range: 70-99 MG/DL. The reference range was not used to interpret this result as normal/abnormal. POTASSIUM (test code = 2823-3) 4.8 MEQ/L See_Comment [Automated messa ge] The system which generated this result transmitted reference range: 3.5-5.4 MEQ/L. The reference range was not used to interpret this result as normal/abnormal. PROTEIN, TOTAL (test code = 2885-2) 7.3 G/DL See_Comment [Automated messa ge] The system which generated this result transmitted reference range: 6.1-8.3 G/DL. The reference range was not used to interpret this result as normal/abnormal. AST (test code = 1920-8) 11 U/L See_Comment [Automated messa ge] The system which generated this result transmitted reference range: 9-50 U/L. The reference range was not used to interpret this result as normal/abnormal. ALT (test code = 1742-6) 7 U/L See_Comment [Automated messa ge] The system which generated this result transmitted reference range: 5-50 U/L. The reference range was not used to interpret this result as normal/abnormal. SODIUM (test code = 2951-2) 143 MEQ/L See_Comment [Automated messa ge] The system which generated this result transmitted reference range: 133-146 MEQ/L. The reference range was not used to interpret this result as normal/abnormal. POC, COVID 19 Antigen + Flu by [facility], COVID 19 Antigen + Flu by Adelina
[2023-08-02 11:33] LABS: Absolute Eosinophils 0.1 K/uL (0-0.5); Absolute Lymphocytes (CBC) 0.7 K/uL (0.7-4.9); Absolute Monocytes 0.6 K/uL (0.1-1.3); Absolute Neutrophil 8.1 K/uL (1.8-8.0); Basophils % 0.4 % (0-1.3); Eosinophils % 0.7 % (0-4.4); Hematocrit 24.9 % (39.6-49.0); Hemoglobin 8.6 g/dL (13.6-17.9); Lymphocytes % 7.5 % (15.3-44.8); MCH 32.8 pg (27.0-35.0); MCHC 34.4 g/dL (32.0-36.0); MCV 95.3 fL (80-100); MPV 7.8 fL (7.6-11.3); Monocytes % 6.1 % (3.3-12.3); Neutrophils % 85.3 % (41.7-73.7); Platelets 232 thou/uL (152-406); RBC Red Blood Cell Count 2.62 M/uL (4.33-5.43); Red Cell Distribution Width 13.8 % (12.1-15.2)
[2023-08-02 11:48] LABS: Anion Gap 8.2 mEq/L (5.0-15.0); Potassium 5.2 mEq/L (3.5-5.1); Troponin High Sensitivity 9.6 pg/mL (<58.9)
--- NOTE | 2023-08-02 11:59 | RAD REPORT ---
EXAM DESCRIPTION: RAD - Chest Single View - 08/02/2023 11:44 am CLINICAL HISTORY: CHEST PAIN Chest pain. COMPARISON: Chest Single View dated 03/09/2021; Chest Single View dated 01/09/2019; Chest Single View dated 07/21/2017; Chest Single View dated 01/16/2016 FINDINGS: Portable technique limits examination quality. The lungs are grossly clear. The heart is normal in size. No displaced fractures. IMPRESSION: No acute intrathoracic process suspected.
--- NOTE | 2023-08-02 11:59 | RAD REPORT ---
EXAM DESCRIPTION: US - Extremity Venous Uni Ltd - 08/02/2023 11:40 am CLINICAL HISTORY: Pain;Swelling Leg swelling and edema. COMPARISON: Extrem Venous W Compress Jasiel dated 01/03/2023 FINDINGS: Left lower extremity venous system was interrogated with Doppler technique. Normal flow, c ompressibility and augmentation was noted. There is no DVT present. IMPRESSION: No evidence of left lower extremity deep venous thrombosis.
[2023-08-02 12:07] LABS: Band Neutrophils 3 % (0-1); Blood Morphology Comment NOT SEEN (NOT SEEN); Differential Total Cells Count 100; Lymphocytes 11 % (15-42); Monocytes 4 % (0-10); Platelet Estimate ADEQ; Segmented Neutrophils 81 % (40-80); White Blood Cell Scan OK (OK)
[2023-08-02] MEDS ORDERED: MORPHINE 2 MG/ML SYR ONE (12:09)
--- NOTE | 2023-08-02 12:20 | EDPHYS ---
Physician Documentation [facility] Name: Iam Nelson Age: 78 yrs Sex: Male : 1945 Arrival Date: 08/02/2023 Time: 10:50 Bed 2 Private MD: ED Physician Armando Pena HPI: 08/01 11:08 This 78 yrs old Male presents to ER via Wheelchair with complaints of Chest ec2 Pain. 11:08 Patient arrives today for evaluation of shortness of breath and left foot pain. Patient ec2 reports he been having shortness of breath since last night. Patient reports no cough and cold symptoms, no fevers or chills, no nausea or vomiting. Reports that he is will see cardiology next month for similar complaints. Patient also reports left foot pain. States that he started having some left foot pain for 2 days. Reports history of sciatica, history of back pain as well.. Historical: - Allergies: 11:05 No Known Drug Allergies; ll1 - PMHx: 11:05 Cataracts; Hyperlipidemia; Hypertension; inflammed prostate; ll1 - Immunization history:: Adult Immunizations up to date. - Social history:: Smoking status: Patient denies any tobacco usage or history of. ROS: 11:08 Constitutional: as per hpi ec2 Exam: 11:08 Constitutional: GEN: NAD Head: atraumatic Eyes: EOMI Ears: External ears are ec2 normal. CV: regular rate LUNGS: no respiratory distress ABD: non-distended SKIN: Scant erythema to the dorsum of the left foot, trace edema noted as well. MSK: no evidence of trauma NEURO: moves all extremities equally Vital Signs: 11:06 BP 131 / 63; Pulse 71; Resp 17; Temp 98.5; Pulse Ox 98% ; Weight 61.23 kg; Height 5 ft. ll1 2 in. ; Pain 10/10; 12:30 BP 145 / 65; Pulse 71; Resp 18; Pulse Ox 99% ; cp4 13:30 BP 136 / 57; Pulse 74; Resp 18; Pulse Ox 100% ; cp4 11:06 Body Mass Index 24.69 (61.23 kg, 157.48 cm) ll1 11:06 Pain Scale: Adult ll1 MDM: 11:00 Patient medically screened. ec2 11:07 ED course: Patient arrives today for evaluation of chest pain. Examination remarkable ec2 for well-appearing nontoxic in which was otherwise in no acute distress. EKG obtained, independently reviewed and interpreted by me, shows normal sinus rhythm, rate 79, no acute ST segment elevations, nonconcerning normals. Will obtain lab work, chest x-ray as well as ultrasound. Currently evaluating for ACS, DVT, cellulitis.. 11:10 Data reviewed: vital signs. ec2 12:06 ED course: Metabolic profile shows slight hypokalemia with potassium of 5.2. Renal ec2 dysfunction with creatinine of 2.62 and a GFR of 24. CBC shows slight anemia with a hemoglobin of 8.6. Troponin is within normal ranges, BNP within normal ranges, chest x-ray shows no acute intrathoracic process. No DVT noted in the left lower extremity. Patient with most recent creatinine at 1.92. . 12:19 ED course: Patient with SANTINO and possible cellulitis of the left foot. Will admit. ec2 Discussed with hospitalist, pending admission.. 08/01 11:08 Order name: Basic Metabolic Panel; Complete Time: 12:05 ec2 08/01 11:08 Order name: CBC with Diff; Complete Time: 12:09 ec2 08/01 11:08 Order name: NT PRO-BNP; Complete Time: 12:05 ec2 08/01 11:08 Order name: Troponin HS; Complete Time: 12:05 ec2 08/01 11:37 Order name: CBC Smear Scan; Complete Time: 12:09 EDMS 08/01 12:07 Order name: Manual Differential; Complete Time: 12:09 EDMS 08/01 13:24 Order name: CBC with Automated Diff EDMS 08/01 13:24 Order name: CBC with Automated Diff EDMS 08/01 13:24 Order name: CBC with Automated Diff EDMS 08/01 13:24 Order name: CBC with Automated Diff EDMS 08/01 13:24 Order name: Comprehensive Metabolic Panel EDMS 08/01 13:24 Order name: Comprehensive Metabolic Panel EDMS 08/01 13:24 Order name: Comprehensive Metabolic Panel EDMS 08/01 13:24 Order name: Comprehensive Metabolic Panel EDMS 08/01 13:24 Order name: Lipid Profile EDMS 08/01 13:24 Order name: Lipid Profile EDMS 08/01 13:24 Order name: Magnesium EDMS 08/01 13:24 Order name: Magnesium EDMS 08/01 13:24 Order name: Phosphorus EDMS 08/01 13:24 Order name: Phosphorus EDMS 08/01 13:24 Order name: Protime (+INR) EDMS 08/01 13:24 Order name: Protime (+INR) EDMS 08/01 13:24 Order name: PTT, Activated Partial Thromb EDMS 08/01 13:24 Order name: PTT, Activated Partial Thromb EDMS 08/01 13:24 Order name: Troponin High Sensitivity EDMS 08/01 13:24 Order name: Troponin High Sensitivity EDMS 08/01 13:24 Order name: Troponin High Sensitivity EDMS 08/01 13:24 Order name: Urinalysis w/ reflexes EDMS 08/01 13:27 Order name: Lactate w/ 2H reflex if indic. EDMS 08/01 13:27 Order name: Procalcitonin EDMS 08/01 13:27 Order name: Uric Acid EDMS 08/01 14:33 Order name: Ptt, Activated cp4 08/01 14:33 Order name: PT-INR cp4 08/01 15:03 Order name: Protime (+INR) EDMS 08/01 15:03 Order name: PTT, Activated Partial Thromb EDMS 08/01 17:03 Order name: Glucose, Ancillary Testing EDMS 08/01 20:17 Order name: PTT, Activated Partial Thromb EDMS 08/01 21:18 Order name: C-Reactive Protein EDMS 08/01 21:24 Order name: Glucose, Ancillary Testing EDMS 08/01 11:08 Order name: XRAY Chest (1 view); Complete Time: 12:05 ec2 08/01 11:08 Order name: Extremity Venous Uni Ltd US; Complete Time: 12:05 ec2 08/01 13:24 Order name: Echo with Doppler EDMS 08/01 13:27 Order name: Foot Left 3 View EDMS 08/01 11:08 Order name: EKG; Complete Time: 11:09 ec2 08/01 13:24 Order name: CONS Physician Consult EDMS 08/01 11:08 Order name: Cardiac monitoring; Complete Time: 12:05 ec2 08/01 11:08 Order name: EKG - Nurse/Tech; Complete Time: 11:25 ec2 08/01 11:08 Order name: IV Saline Lock; Complete Time: 11:25 ec2 08/01 11:08 Order name: Labs collected and sent; Complete Time: 11: ec2 08/01 11:08 Order name: O2 Per Protocol; Complete Time: 12: ec2 08/01 11:08 Order name: O2 Sat Monitoring; Complete Time: 12:05 ec2 Administered Medications: 12:12 Drug: morphine IVP or IV 2 mg IVP once over 4 mins Route: IVP; Infused Over: 4 mins; cp4 Site: left forearm; 14:53 Follow up: Response: No adverse reaction; Pain is decreased cp4 12:26 Drug: Clindamycin IVPB 600 mg IVPB once over 30 mins; (mix in 50 mL) Route: IVPB; cp4 Infused Over: 30 mins; Site: left forearm; 14:53 Follow up: Response: No adverse reaction; IV Status: Infusion continued cp4 12:26 Drug: NS 0.9% IV 500 ml IV at bolus once Route: IV; Rate: bolus; Site: left forearm; cp4 14:53 Follow up: Response: No adverse reaction; IV Status: Completed infusion cp4 Disposition Summary: 08/02/23 12:20 Hospitalization Ordered Notes: Provider: Jamar Espinoza ec2 Condition: Stable ec2 Problem: an acute exacerbation ec2 Symptoms: have improved ec2 Bed/Room Type: Standard ec2 Hospitalization Status: Observation(08/02/23 14:08) bc6 Location: Telemetry/MedSurg (observation)(08/02/23 22:28) ty Room Assignment: [facility](08/02/23 22:28) ty Diagnosis - Acute Kidney Injury ec2 - Cellulitis of left lower limb ec2 Forms: - Medication Reconciliation Form ec2 - SBAR form ec2 - Leadership Thank You Letter ec2 Signatures: Dispatcher [employer] Demetruis Coats RN RN ll1 Nichelle Trotter RN RN kb3 Glory Gonzalez bc6 Armando Pena MD MD ec2 Xiomara Diallo cp4 Alfredo Black ty Corrections: (The following items were deleted from the chart) 14:08 12:20 Observation ec2 bc6 14:08 12:20 Telemetry/MedSurg (observation) ec2 bc6 14:08 12:20 ec2 bc6 14:11 14:08 bc6 bc6 14:22 14:08 [facility] ER HOLD bc6 bc6 14:22 14:11 ERHOLD- bc6 bc6 14:30 14:22 Telemetry/MedSurg (observation) bc6 kb3 14:30 14:22 bc6 kb3 22:28 14:30 [facility] ER HOLD kb3 ty 22:28 14:30 ERHOLD- kb3 ty
--- NOTE | 2023-08-02 12:20 | ER ---
Nurse's Notes [facility] Name: Iam Nelson Age: 78 yrs Sex: Male : 1945 Arrival Date: 08/02/2023 Time: 10:50 Bed 2 Private MD: Diagnosis: Acute Kidney Injury;Cellulitis of left lower limb Presentation: 08/01 11:06 Chief complaint: Patient states: CP with SOB for 3 days. L foot pain/swollen for 3 ll1 days. No known injury. Coronavirus screen: Vaccine status: Patient reports receiving the 2nd dose of the covid vaccine. Client denies travel out of the [place] in the last 14 days. At this time, the client does not indicate any symptoms associated with coronavirus-19. Ebola Screen: Patient denies travel to an Ebola-affected area in the 21 days before illness onset. Initial Sepsis Screen: Does the patient meet any 2 criteria? No. Patient's initial sepsis screen is negative. Does the patient have a suspected source of infection? No. Patient's initial sepsis screen is negative. Risk Assessment: Do you want to hurt yourself or someone else? Patient reports no desire to harm self or others. Onset of symptoms was July 31, 2023. 11:06 Method Of Arrival: Wheelchair ll1 11:06 Acuity: DORA 3 ll1 Triage Assessment: 11:07 General: Appears uncomfortable, Behavior is calm, cooperative, appropriate for age. ll1 Pain: Complains of pain in left foot Pain currently is 10 out of 10 on a pain scale. Cardiovascular: Reports chest pain, shortness of breath. Musculoskeletal: Reports pain in left foot. Historical: - Allergies: 11:05 No Known Drug Allergies; ll1 - PMHx: 11:05 Cataracts; Hyperlipidemia; Hypertension; inflammed prostate; ll1 - Immunization history:: Adult Immunizations up to date. - Social history:: Smoking status: Patient denies any tobacco usage or history of. Screenin:13 [facility] ED Fall Risk Assessment (Adult) History of falling in the last 3 months, cp4 including since admission No falls in past 3 months (0 pts) Confusion or Disorientation No (0 pts) Intoxicated or Sedated No (0 pts) Impaired Gait No (0 pts) Mobility Assist Device Used No (0 pt) Altered Elimination No (0 pt) Score/Fall Risk Level 0 - 2 = Low Risk Oriented to surroundings, Maintained a safe environment, Assessed \T\ reinforced patient's understanding of fall precautions, Hourly rounding (assess needs \T\ fall precautionary measures) done. Abuse screen: Denies threats or abuse. Nutritional screening: No deficits noted. Tuberculosis screening: No symptoms or risk factors identified. Assessment: 12:13 General: Appears in no apparent distress. Behavior is calm, cooperative, appropriate cp4 for age. Pain: Complains of pain in chest Pain does not radiate. Pain began 2-3 days ago. Cardiovascular: Reports chest pain, shortness of breath, Rhythm is sinus rhythm. Vital Signs: 11:06 BP 131 / 63; Pulse 71; Resp 17; Temp 98.5; Pulse Ox 98% ; Weight 61.23 kg; Height 5 ft. ll1 2 in. ; Pain 10/10; 12:30 BP 145 / 65; Pulse 71; Resp 18; Pulse Ox 99% ; cp4 13:30 BP 136 / 57; Pulse 74; Resp 18; Pulse Ox 100% ; cp4 11:06 Body Mass Index 24.69 (61.23 kg, 157.48 cm) ll1 11:06 Pain Scale: Adult ll1 ED Course: 10:54 Patient arrived in ED. rg4 10:54 Armando Pena MD is Attending Physician. ec2 11:07 Triage completed. ll1 11:08 Arm band placed on Patient placed in waiting room, in a wheelchair. EKG completed in ll1 triage. Results shown to MD. 11:08 EKG done, by ED staff, reviewed by Armando Pena MD. ll1 11:25 Initial lab(s) drawn, by me, sent to lab. Inserted saline lock: 22 gauge in left jg11 antecubital area, using aseptic technique. Blood collected. 11:25 Basic Metabolic Panel Sent. jg11 11:25 CBC with Diff Sent. jg11 11:25 NT PRO-BNP Sent. jg11 11:25 Troponin HS Sent. jg11 11:42 Extremity Venous Uni Ltd US In Process Unspecified. EDMS 11:44 XRAY Chest (1 view) In Process Unspecified. EDMS 12:04 Xiomara Diallo is Primary Nurse. cp4 12:13 Placed in gown. Bed in low position. Call light in reach. Side rails up X2. Provided cp4 Education on: chest pain and shortness of breath. Client placed on continuous cardiac and pulse oximetry monitoring. NIBP monitoring applied. awake overnight monitor on. Pulse ox on. Warm blanket given. 12:13 No provider procedures requiring assistance completed. Patient maintains SpO2 cp4 saturation greater than 95% on room air. 12:20 Jamar Espinoza MD is Hospitalizing Provider. ec2 14:06 Patient admitted, IV remains in place. cp4 14:39 PT-INR Sent. cp4 14:39 Ptt, Activated Sent. cp4 Administered Medications: 12:12 Drug: morphine IVP or IV 2 mg IVP once over 4 mins Route: IVP; Infused Over: 4 mins; cp4 Site: left forearm; 14:53 Follow up: Response: No adverse reaction; Pain is decreased cp4 12:26 Drug: Clindamycin IVPB 600 mg IVPB once over 30 mins; (mix in 50 mL) Route: IVPB; cp4 Infused Over: 30 mins; Site: left forearm; 14:53 Follow up: Response: No adverse reaction; IV Status: Infusion continued cp4 12:26 Drug: NS 0.9% IV 500 ml IV at bolus once Route: IV; Rate: bolus; Site: left forearm; cp4 14:53 Follow up: Response: No adverse reaction; IV Status: Completed infusion cp4 Medication: 12:13 VIS not applicable for this client. cp4 Outcome: 12:20 Decision to Hospitalize by Provider. ec2 14:06 Admitted to ER Hold. Please see [facility] for further documentation. cp4 14:06 Condition: stable 14:06 Instructed on the need for admit, Demonstrated understanding of instructions, follow-up care, 08/02 00:24 Admitted to Tele accompanied by tech, via stretcher, room 402, Report called to report vc1 faxed to 4th floor, acknowledged by Mary Isaac RNverification manager 00:25 Patient left the ED. vc1 Signatures: Dispatcher [employer] Julisa Hernandez rg4 Demetrius Isaac RN RN ll1 Ludivina Toth RN RN vc1 Armando Pena MD MD 2 Xiomara Diallo cp4 Duncan Parmar jg11
[2023-08-02] MEDS ORDERED: NA CHLORIDE 0.9% 500 ML ONE (12:22)
[2023-08-02] MEDS ORDERED: CLINDAMYCIN 600MG/D5W 50 ML IV ONE (12:22)
[2023-08-02] MEDS: ALBUTEROL 2.5 MG/3 ML NEB SOL NEB ONE (14:00)
--- NOTE | 2023-08-02 14:05 | P.HP ---
Certification for Inpatient Patient admitted to: Inpatient With expected LOS: >2 Midnights Patient will require the following post-hospital care: None Practitioner: I am a practitioner with admitting privileges, knowledge of patient current condition, hospital course, and medical plan of care. Services: Services provided to patient in accordance with Admission requirements found in Title 42 Section 412.3 of the Code of Federal Regulations <Linda Hernandez - Last Filed: 08/02/23 13:28> Patient History Date of Service: 08/02/23 Reason for admission: dyspnea, left foot pain History of Present Illness: Mr. Nelson is a 78 yo with a past medical history of HTN, HLD, chronic renal disease, and BPH. He reports a three day history of SOB on supine position and some dyspnea on exertion. He awoke today with a very painful left lateral foot with left lower extremity edema. He presented to the Emergency department and was given pain medication and Clindamycin IVPB for possible left lower extremity cellulitis. His pain is decreased. His DVT doppler study was negative. Initial cardiac enzymes and CXR were negative. He was found to have acute on chronic kidney injury with a creatinine of 2.62. He has seen Dr. Quesada in the past and we will consult him for assistance. He will be admitted for further investigation and treatment of the above concerns. Home medications list reviewed: Yes - Past Medical/Surgical History Has patient received pneumonia vaccine in the past: No Diabetic: No -: HTN -: Hyperlipidemia -: BPH -: Cataracts -: GERD Psychosocial/ Personal History: Patient is - Family History Family History: Reviewed- Non-Contributory - Family History Mother -: Cancer Notes: tumor - Social History Smoking Status: Never smoker Alcohol use: No CD- Drugs: No Caffeine use: Yes Place of Residence: Home <Linda Hernandez - Last Filed: 08/02/23 13:28> Date of Service: 08/02/23 <Jamar Espinoza - Last Filed: 08/04/23 03:38> Allergies No Known Drug Allergies Allergy (Verified 01/09/19 20:46) Unknown No Known Allergies Allergy (Uncoded 01/21/16 02:11) Unknown Home Medications: Amlodipine [Norvasc*] 10 mg PO DAILY 07/21/17 Finasteride [Proscar*] 1 tab PO DAILY 08/04/23 Pravastatin Sodium 1 tab PO DAILY 08/04/23 Review of Systems 10-point ROS is otherwise unremarkable General: Unremarkable Eyes: Unremarkable ENT: Unremarkable Respiratory: Shortness of Breath, SOB with Excertion Cardiovascular: As per HPI Gastrointestinal: Unremarkable Genitourinary: Unremarkable Musculoskeletal: As per HPI Integumentary: As per HPI Neurological: Unremarkable Lymphatics: Unremarkable <Linda Hernandez - Last Filed: 08/02/23 13:28> Physical Examination - Physical Exam General: Alert, In no apparent distress, Oriented x3 HEENT: Atraumatic, Normocephalic Neck: JVD not distended Respiratory: Normal air movement Cardiovascular: Regular rate/rhythm, Systolic murmur Capillary refill: <2 Seconds Gastrointestinal: Soft and benign Musculoskeletal: No clubbing, Other (left lateral grinding machine tender, foot to mid calf edematous, no erythema) Integumentary: No rashes Neurological: Normal speech, Normal tone Lymphatics: No axilla or inguinal lymphadenopathy External genitalia: Deferred Rectal: Deferred - Studies Laboratory Data (last 24 hrs) 08/02/23 08/02/23 11:22 11:22 WBC 9.50 Hgb 8.6 L Hct 24.9 L Plt Count 232 Sodium 136 Potassium 5.2 H BUN 41 H Creatinine 2.62 H Glucose 154 H <Linda Hernandez - Last Filed: 08/02/23 13:28> Assessment and Plan - Plan Acute on chronic kidney disease: Manage electolytes monitor and manage blood pressure last renal US 05/17/22 - medical renal disease H/H decreased from previous visits and creatinine increased - will continue to trend renal diet Consult Dr. Quesada BPH: Powers I&O Continue home medication Dyspnea: CXR normal in ED Heparin drip until results of VQ scan O2 prn Spot pulse ox Echo - last in 2019 Edema/pain of left foot: DVT study negative Morphine q6h prn neurovascular exam Q4h xray left foot procalcitonin, lactate, uric acid evaluation Discharge Plan: Home Plan to discharge in: 48 Hours - Advance Directives Does patient have a Living Will: No Does patient have a Durable POA for Healthcare: Yes <Linda Hernandez - Last Filed: 08/02/23 13:28> Date of Service: 08/02/23 Patient was seen and examined. Agree with findings as mentioned above. Patient's respiratory status has improved. Continue with monitoring volume status and diuresing. Patient's renal function has stabilized. Continue with echocardiogram which is pending. Repeat chest x-ray. <Jamar Espinoza - Last Filed: 08/04/23 03:38>
[2023-08-02] MEDS: INFLUENZA VACCINE (for 6+ mo) 0.5 ML DOSE IMVAC ONE (15:00)
[2023-08-02 15:02] LABS: PTT, Activated Partial Thromb 30.7 SECONDS (24.3-36.9)
[2023-08-02 15:03] LABS: PT Prothrombin Time 10.9 SECONDS (9.5-12.5); Protime INR 0.99
[2023-08-02] MEDS ORDERED: HEPARIN/D5W 25,000 UNIT/500 ML BAG IV ONE (15:31)
[2023-08-02] MEDS ORDERED: HEPARIN 5000 UNIT/ML 1 ML VIAL ONE (15:31)
[2023-08-02] MEDS: HEPARIN/D5W 25,000 UNIT/500 ML BAG IV SCH (15:38)
[2023-08-02] MEDS: INSULIN REGULAR (HUMAN) 100 UNIT/ML SQ SCH (16:30)
--- NOTE | 2023-08-02 19:38 | RAD REPORT ---
EXAM DESCRIPTION: RAD - Foot Left 3 View - 08/02/2023 1:48 pm CLINICAL HISTORY: pain, edema COMPARISON: Foot Left 3 View dated 12/31/2022 TECHNIQUE: Left foot, 3 views. FINDINGS: No fracture, dislocation or periosteal reaction. No air or foreign body in the soft tissues. Soft tissue swelling about the dorsum of the foot. Vascu lar calcifications. IMPRESSION: Dorsal soft tissue swelling without acute osseus abnormality.
[2023-08-03] MEDS ORDERED: MORPHINE 2 MG/ML SYR IV PRN (00:36)
[2023-08-03 02:39] LABS: Absolute Lymphocytes (CBC) 0.8 K/uL (0.7-4.9); Absolute Monocytes 0.6 K/uL (0.1-1.3); Absolute Neutrophil 4.6 K/uL (1.8-8.0); Basophils % 0.7 % (0-1.3); Eosinophils % 0.5 % (0-4.4); Hematocrit 22.5 % (39.6-49.0); Hemoglobin 7.7 g/dL (13.6-17.9); Lymphocytes % 13.8 % (15.3-44.8); MCH 32.5 pg (27.0-35.0); MCV 95.5 fL (80-100); MPV 7.8 fL (7.6-11.3); Monocytes % 10.4 % (3.3-12.3); Neutrophils % 74.6 % (41.7-73.7); Nucleated Red Blood Cells % 0.2 % (0-0); Platelets 199 thou/uL (152-406); RBC Red Blood Cell Count 2.36 M/uL (4.33-5.43); Red Cell Distribution Width 13.8 % (12.1-15.2)
[2023-08-03 02:41] LABS: PTT, Activated Partial Thromb 64.7 SECONDS (24.3-36.9)
[2023-08-03 02:42] LABS: PT Prothrombin Time 11.4 SECONDS (9.5-12.5); Protime INR 1.04
[2023-08-03 02:53] LABS: Albumin/Globulin Ratio 0.9 (1.1-1.8); Anion Gap 9.3 mEq/L (5.0-15.0); Bilirubin Total 0.3 mg/dL (0.2-1.0); Globulin 3.3 g/dL (2.3-3.5); Magnesium 2.5 mg/dL (1.6-2.4); Phosphorus 4.1 mg/dL (2.5-4.9); Potassium 5.3 mEq/L (3.5-5.1); Protein, Total 6.3 g/dL (6.4-8.2); Troponin High Sensitivity 10.3 pg/mL (<58.9)
[2023-08-03] MEDS: CALCIUM GLUC 10% INJ 4.65 MEQ in NA CHLORIDE 0.9% 100 ML IV ONE (05:28)
[2023-08-03] MEDS ORDERED: GLUCAGON 1 MG/VIAL IM PRN (05:34)
[2023-08-03] MEDS ORDERED: D50W 25 GM/50 ML SYRINGE IV PRN (05:34)
[2023-08-03] MEDS: INSULIN REGULAR (HUMAN) 100 UNIT/ML IV ONE (05:35)
[2023-08-03] MEDS ORDERED: D10W 125 ML IV PRN (05:41)
[2023-08-03] MEDS ORDERED: D10W 250 ML IV SCH (06:00)
[2023-08-03] MEDS: SOD POLYSTYREN SUL 15 GM/60 ML UCUP PO ONE (07:09)
--- NOTE | 2023-08-03 07:44 | P.PN ---
Subjective Date of Service: 08/03/23 Chief Complaint: dyspnea, left foot pain Subjective: Improving Review of Systems 10-point ROS is otherwise unremarkable Respiratory: Shortness of Breath Musculoskeletal: Foot Pain, Pedal edema Physical Examination - Vital Signs Temperature: 99.3 F Blood Pressure: 155/72 Pulse: 80 Respirations: 18 Pulse Ox (%): 96 - Physical Exam General: Alert, In no apparent distress, Oriented x3 HEENT: Atraumatic, Normocephalic Neck: Supple Respiratory: Normal air movement Cardiovascular: Normal pulses, Regular rate/rhythm, Systolic murmur Capillary refill: <2 Seconds Gastrointestinal: Soft and benign Musculoskeletal: No clubbing, No swelling Integumentary: No rashes Neurological: Normal speech, Normal tone Lymphatics: No axilla or inguinal lymphadenopathy External genitalia: Deferred Rectal: Deferred - Studies Laboratory Data (last 24 hrs) 08/02/23 08/02/23 11:22 11:22 WBC 9.50 Hgb 8.6 L Hct 24.9 L Plt Count 232 Sodium 136 Potassium 5.2 H BUN 41 H Creatinine 2.62 H Glucose 154 H Assessment And Plan - Plan Acute on chronic kidney disease: Manage electolytes monitor and manage blood pressure last renal US 05/17/22 - medical renal disease H/H decreased from previous visits and creatinine increased - will continue to trend renal diet Consult Dr. Quesada BPH: Powers I&O Continue home medication Dyspnea: CXR normal in ED Heparin drip until results of VQ scan O2 prn Spot pulse ox Echo - last in 2019 Edema/pain of left foot: DVT study negative Morphine q6h prn neurovascular exam Q4h xray left foot procalcitonin, lactate, uric acid mildly elevated Discharge Plan: Home Plan to discharge in: 48 Hours
--- NOTE | 2023-08-03 07:45 | RAD REPORT ---
EXAM DESCRIPTION: NM - Vent Perfusion VQ Scan - 08/03/2023 6:41 am CLINICAL HISTORY: r/o PE COMPARISON: Chest Single View dated 08/02/2023 TECHNIQUE: 17.4MCi Xe-133 gas inhaled and 7.1mCi Tc-MAA IV. Planar ventilation scan was performed in posterior projection after Xe-133 gas inhalation (wash-in, e quilibrium, and wash-out phases) followed by perfusion scan with Tc-MAA IV in multiple projections. Examination is correlated with recent chest radiograph. FINDINGS: Normal ventilation with appropriate wash-out and no significant air-trapping. No mismatched segmental perfusion defect. Subsegmental small defects within the central aspects of th e right more than left lung. IMPRESSION: Nondiagnostic exam by modified PIOPED II criteria. Low or intermediate probability of ac sharon pulmonary embolism.
[2023-08-03] MEDS ORDERED: PNEUMOCOCCAL VACCINE 0.5 ML IMVAC ONE (08:00)
[2023-08-03] MEDS: CALCIUM GLUCONATE 1 GM IVPB 1 GM/50 ML BAG IV ONE (08:21)
[2023-08-03] MEDS ORDERED: ALBUTEROL INHALER 200 PUFF/6.7 GM IH PRN (09:34)
[2023-08-03 12:21] LABS: Albumin 3.3 g/dL (3.4-5.0); Albumin/Globulin Ratio 0.8 (1.1-1.8); Anion Gap 9.6 mEq/L (5.0-15.0); Bilirubin Total 0.3 mg/dL (0.2-1.0); Globulin 4.2 g/dL (2.3-3.5); Magnesium 2.7 mg/dL (1.6-2.4); Potassium 4.6 mEq/L (3.5-5.1); Protein, Total 7.5 g/dL (6.4-8.2)
--- NOTE | 2023-08-03 16:42 | P.CNS ---
Date of Consult: 08/03/23 Reason for Consult: Renal insufficiency Requesting Physician: Linda Hernandez Chief Complaint: dyspnea, left foot pain History of Present Illness: Pt is a 78 yo Salvadorean speaking only male with a past medical history of chronic HTN, chronic renal insufficiency going back several years (more than 5), a hx of proteinuria and possibly some BPH. Pt came in to the hospital with some left lateral foot pain and swelling. He also acknowledged some orthopnea. He was admitted and worked up with a LE venous doppler, V/Q scan and other. Pt feels better currently and reports less left foot pain and denies CP or dyspnea. Renal service consulted for evaluation of the renal insufficiency. Allergies No Known Drug Allergies Allergy (Verified 01/09/19 20:46) Unknown No Known Allergies Allergy (Uncoded 01/21/16 02:11) Unknown Home Medications: Amlodipine [Norvasc*] 0.5 tab PO DAILY 07/21/17 Albuterol Inhaler [Ventolin Inhaler] 2 puff IH Q6H PRN 08/02/23 Albuterol Neb [Proventil 0.083% Neb Soln] 2.5 mg IH PRN PRN 08/02/23 Alendronate Sodium 70 mg PO SEECOM 08/02/23 Aspirin [Aspirin EC 81 MG] 81 mg PO DAILY 08/02/23 Budesonide/Glycopyr/Formoterol [Breztri Aerosphere Inhaler] 2 puff IH BID 08/02/23 Famotidine 20 mg PO DAILY 08/02/23 Insulin -Regular Human [Novolin -R] 2 unit SQ TID 08/02/23 Insulin Glargine,Hum.rec.anlog [Lantus Solostar] 10 unit SQ BEDTIME 08/02/23 Insulin Glargine,Hum.rec.anlog [Lantus Solostar] 12 unit SQ BREAKFAST 08/02/23 Levothyroxine Sodium [Synthroid] 137 mcg PO DAILY 08/02/23 Magnesium Oxide [Mag 0X Tab] 3 tab PO QID 08/02/23 Melatonin 5 mg PO BEDTIME 08/02/23 Metoprolol Tartrate [Lopressor] 50 mg PO BID 08/02/23 Tacrolimus [Prograf] 1 mg PO BEDTIME 08/02/23 Tacrolimus [Prograf] 2 cap PO BREAKFAST 08/02/23 Bimatoprost [Lumigan Opthalmic Drops*] 1 drop EACH EYE BEDTIME 08/03/23 - Past Medical/Surgical History Diabetic: No -: HTN -: Hyperlipidemia -: BPH -: Cataracts -: GERD -: 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 Psychosocial/ Personal History: Patient is - Family History Mother Medical History: Cancer Notes: tumor - Social History Smoking Status: Never smoker Alcohol use: No CD- Drugs: No Caffeine use: Yes Place of Residence: Home Review of Systems General: Unremarkable Eyes: Unremarkable ENT: Unremarkable Respiratory: As per HPI Cardiovascular: Edema Gastrointestinal: Unremarkable Genitourinary: As per HPI Musculoskeletal: Foot Pain Neurological: Unremarkable Physical Examination Temp Pulse Resp BP Pulse Ox 98.1 F 83 20 173/72 H 97 08/03/23 12:00 08/03/23 12:00 08/03/23 12:00 08/03/23 12:00 08/03/23 12:00 General: Alert, In no apparent distress, Cooperative HEENT: Atraumatic, Normocephalic Neck: Supple Respiratory: Clear to auscultation bilaterally, Normal air movement Cardiovascular: No edema, Regular rate/rhythm Gastrointestinal: Soft and benign, Non-distended, No tenderness Musculoskeletal: Other (Mild left foot and lateral malleolus swelling, no sig TTP) Integumentary: No rashes Neurological: Normal speech, Normal tone Conclusions/Impression: A/P) 1. CKD Stage IIIb/IV for some time with GFR lower since late and with sub nephrotic proteinuria on spot urine testing. Neg prior serologic w/u but some concern for intrinsic renal disease but no renal biopsy performed it appears. 2. Renal function slightly worse on admission but Cr level is downward trending. 3. Prior renal imaging has not shown any obstructive uropathy issues 4. Will check urine studies including UA and UACR 5. Chronic HTN with CKD, other -BP mod elevated, will titrate CCB. Will not (re) start ARB currently, Telmisartan listed among prior meds 6. Agree with TTE assessment to assess for any cardiomyopathy, other 6. Need to clarify why Tacrolimus is among his meds, I see no mention of it on Dr. Quesada's clinic records and no mention of transplant history or auto immune disease elsewhere on his medical record
[2023-08-03] MEDS: HYDRALAZINE HCL 20 MG/ML VIAL IV ONE (16:56)
[2023-08-03 18:46] LABS: Specific Gravity 1.009 (1.005-1.030); Urine Bilirubin NEGATIVE (Negative); Urine Blood 1+ (Negative); Urine Clarity Clear (Clear); Urine Color Colorless (Yellow); Urine Glucose NEGATIVE (Negative); Urine Ketones NEGATIVE (Negative); Urine Protein 2+ (Negative); Urine Urobilinogen Normal (Normal)
[2023-08-03 18:47] LABS: Sqamous Epithelial None Seen /HPF (None Seen); Urine Bacteria None Seen /HPF (<20); Urine Crystals Unidentified Few /HPF (None Seen); Urine Culture Reflex Order NOT NEEDED; Urine Microscopic Reflex YN ORDER UMIC; Urine Mucus Slight /HPF (None Seen); Urine Nitrite NEGATIVE (Negative); Urine RBC 21-50 /HPF (None Seen); Urine WBC <5 /HPF (<5)
[2023-08-03] MEDS: FORMOTEROL IH SCH (20:46)
[2023-08-03] MEDS: BUDESONIDE IH SCH (20:46)
[2023-08-03] MEDS: GLYCOPYR IH SCH (20:46)
[2023-08-03] MEDS: INSULIN GLARGINE 100 UNIT/ML SQ SCH (21:00)
[2023-08-03] MEDS ORDERED: TACROLIMUS 1 MG PO SCH (21:00)
[2023-08-03] MEDS ORDERED: HOME MED 1 EA UNK (Insulin Glargine,Hum.Rec.Anlog [Lantus Solostar] 100 UNIT/ML Insuln.Pen SQ SCH (21:00)
[2023-08-03] MEDS: METOPROLOL TAR 50 MG TAB PO SCH (21:11)
[2023-08-03] MEDS: ENOXAPARIN 30 MG/0.3 ML SQ SCH (21:11)
[2023-08-03] MEDS: AMLODIPINE 2.5 MG TAB PO SCH (21:11)
[2023-08-04 04:13] LABS: Absolute Basophils 0.1 K/uL (0-0.5); Absolute Eosinophils 0.2 K/uL (0-0.5); Absolute Lymphocytes (CBC) 1.1 K/uL (0.7-4.9); Absolute Monocytes 0.6 K/uL (0.1-1.3); Absolute Neutrophil 3.9 K/uL (1.8-8.0); Eosinophils % 2.9 % (0-4.4); Hematocrit 23.4 % (39.6-49.0); Hemoglobin 8.1 g/dL (13.6-17.9); Lymphocytes % 18.5 % (15.3-44.8); MCH 32.9 pg (27.0-35.0); MCHC 34.7 g/dL (32.0-36.0); MPV 8.6 fL (7.6-11.3); Monocytes % 9.8 % (3.3-12.3); Neutrophils % 67.8 % (41.7-73.7); Nucleated Red Blood Cells % 0.1 % (0-0); Platelets 223 thou/uL (152-406); RBC Red Blood Cell Count 2.46 M/uL (4.33-5.43); Red Cell Distribution Width 13.6 % (12.1-15.2)
[2023-08-04 04:38] LABS: Albumin 2.9 g/dL (3.4-5.0); Albumin/Globulin Ratio 0.9 (1.1-1.8); Anion Gap 10.1 mEq/L (5.0-15.0); Bilirubin Total 0.3 mg/dL (0.2-1.0); Globulin 3.4 g/dL (2.3-3.5); Potassium 5.1 mEq/L (3.5-5.1); Protein, Total 6.3 g/dL (6.4-8.2)
[2023-08-04] MEDS: LEVOTHYROXINE SOD 0.112 MG TAB PO SCH (05:38)
[2023-08-04] MEDS: LEVOTHYROXINE SOD 0.025 MG TAB PO SCH (05:38)
[2023-08-04] MEDS: INSULIN GLARGINE 100 UNIT/ML SQ SCH (08:00)
[2023-08-04] MEDS ORDERED: HOME MED 1 EA UNK (Insulin Glargine,Hum.Rec.Anlog [Lantus Solostar] 100 UNIT/ML Insuln.Pen SQ SCH (08:00)
[2023-08-04] MEDS ORDERED: TACROLIMUS 1 MG PO SCH (08:00)
[2023-08-04 08:08] VITALS: O2SAT 98
--- NOTE | 2023-08-04 08:48 | RAD REPORT ---
EXAM DESCRIPTION: CT - Thorax Wo Con - 08/04/2023 6:45 am CLINICAL HISTORY: Hypoxemia/right lung mass COMPARISON: 2016 TECHNIQUE: Computed axial tomography of the chest was obtained. Contrast was not requested. All CT scans are performed using dose optimization technique as appropriate and may include automated exposure control or mA/KV adjustment according to patient size. FINDINGS: The evaluation of mediastinum, katherine and vessels is limited secondary to lack of IV contras t administration. A 6 millimeter nodular opacity right lower lobe unchanged is benign. No follow-up recommended. Mild o pacification right upper lobe unchanged compatible with scarring. A few areas of scarring within the lung bases. No mediastinal or hilar lymphadenopathy is seen. A pleural effusion is not present. A small pericardial effusion 17 millimeter low-density mass left kidney only partially included in the field of view IMPRESSION: Small pericardial effusion 17 millimeter low-density mass left kidney probably a cyst. This should be confirmed with ultrasound
[2023-08-04] MEDS ORDERED: AMLODIPINE 2.5 MG TAB PO SCH (09:00)
[2023-08-04] MEDS ORDERED: HOME MED 1 EA UNK (Levothyroxine Sodium [Synthroid] 137 MCG Tablet) PO SCH (09:00)
[2023-08-04] MEDS: AMLODIPINE 10 MG TAB PO SCH (10:21)
--- NOTE | 2023-08-04 10:47 | P.PN ---
Subjective Date of Service: 08/04/23 Chief Complaint: dyspnea, left foot pain Subjective: Improving (wishes home O2) Review of Systems 10-point ROS is otherwise unremarkable General: Unremarkable Respiratory: Other (requests home o2 for hs) Musculoskeletal: Other (mild left foot lateral tenderness, edema gone) Integumentary: Rash Physical Examination - Vital Signs Temperature: 98.4 F Blood Pressure: 156/75 Pulse: 67 Respirations: 16 Pulse Ox (%): 98 - Physical Exam General: In no apparent distress, Oriented x3 HEENT: Atraumatic, Normocephalic Neck: Supple Respiratory: Normal air movement, Other (denies SOB, request home O2 for HS) Cardiovascular: Regular rate/rhythm Capillary refill: <2 Seconds Gastrointestinal: Soft and benign Musculoskeletal: No clubbing, Other (minimal left lateral foot edema and tenderness) Integumentary: No rashes Neurological: Normal speech, Normal tone Lymphatics: No axilla or inguinal lymphadenopathy External genitalia: Deferred Rectal: Deferred Assessment And Plan - Plan Acute on chronic kidney disease: Manage electolytes monitor and manage blood pressure last renal US 05/17/22 - medical renal disease H/H decreased from previous visits and creatinine increased - will continue to trend renal diet Consult Dr. Quesada - pt seen by Dr. Magallon, awaiting UA results BPH: Powers I&O Continue home medication Dyspnea: CXR normal in ED Heparin drip until results of VQ scan- vq scan min to mod risk, no large PE, heparin drip stopped. Lovenox 40mg sq daily for DVT prophylaxis O2 prn Spot pulse ox Echo - last in 2019 - to be done today Edema/pain of left foot: DVT study negative Morphine q6h prn neurovascular exam Q4h xray left foot - negative procalcitonin, lactate, uric acid mildly elevated discharge in 24h Code status: full Discharge Plan: Home Plan to discharge in: 24 Hours - Code Status/Comfort Care Code Status Assessed: Yes (Full)
[2023-08-04 13:45] VITALS: BMI 23.9
--- NOTE | 2023-08-04 14:26 | P.PN ---
(S) Pt has no acute complaints, denies any further left foot pain, has been ambulatory. Discussed renal function tests and other study results in detail with pt with family member translating but pt appears to have poor insight into the CKD issues discussed and did not see the need for follow up (O) vitals reviewed in the EMR General: Alert, In no apparent distress, Cooperative HEENT: Atraumatic, Normocephalic Neck: Supple Respiratory: Clear to auscultation bilaterally, Normal air movement Cardiovascular: No edema, Regular rate/rhythm Gastrointestinal: Soft and benign, Non-distended, No tenderness Musculoskeletal: Other (Mild left foot and lateral malleolus swelling, no sig TTP) Integumentary: No rashes Neurological: Normal speech, Normal tone Conclusions/Impression: A/P) 1. CKD Stage IIIb/IV for some time with GFR lower since late and with sub nephrotic proteinuria on spot urine testing. Neg prior serologic w/u but some concern for intrinsic renal disease but no renal biopsy performed it appears. 2. Renal function slightly worse on admission but Cr level has since plateaued. 3. Prior renal imaging has not shown any obstructive uropathy issues but given findings of a low density small lesion in the left kidney which is likely a cyst as seen on renal u/s from late 2021, will nonetheless repeat u/s as UA does show microscopic hematuria 4. Will check UACR, 2+ dipstick proteinuria 5. Chronic HTN with CKD, other -BP mod elevated, did resume ARB. Will not (re) start ARB currently, Telmisartan listed among prior meds, to prevent confounding physiologic effects on GFR and given risk for hyperkalemia and pt with poor history of follow up 6. Agree with TTE assessment to assess for any cardiomyopathy, other 6. Tacrolimus was initially ordered by admitting team, I see no mention of it on Dr. Quesada's clinic records and no mention of transplant history or auto immune disease elsewhere on his medical record and not among his home meds. Medication is NF so no doses administered and medication was stopped. 7. Anemia, unspecified. Likely CKD related in part given low GFR state. Normocytic, check iron studies, retic count, other
[2023-08-04 14:50] LABS: Percent Reticulocyte Count 0.89 % (0.4-2.05); RBC Red Blood Cell Count 2.74 M/uL (4.33-5.43)
[2023-08-04 15:07] LABS: Ferritin 50.1 ng/mL (26-388)
--- NOTE | 2023-08-04 17:27 | EKG ---
Test Date: 2023-08-03 Test Time: 00:43:14 Sole Splitter: Martin VANESSA MEASUREMENT RESULTS: Intervals: Rate: 95 NC: 158 QRSD: 82 QT: 348 QTc: 437 [place]: P: 52 NC: 158 QRS: -69 T: 68 INTERPRETIVE STATEMENTS: Normal sinus rhythm Left axis deviation Abnormal ECG Compared to ECG 03/09/2021 20:11:08 Left-axis deviation now present Left anterior fascicular block no longer present Electronically Signed On 08-04-23 17:21:28 CDT by Kody Hurtado
--- NOTE | 2023-08-04 17:31 | EKG ---
Test Date: 2023-08-02 Test Time: 10:51:50 Drama Director: LUKAS MEASUREMENT RESULTS: Intervals: Rate: 79 ME: 154 QRSD: 76 QT: 368 QTc: 421 [place]: P: 75 ME: 154 QRS: -73 T: 79 INTERPRETIVE STATEMENTS: Normal sinus rhythm Left axis deviation Abnormal ECG Compared to ECG 03/09/2021 20:11:08 Left-axis deviation now present Left anterior fascicular block no longer present Electronically Signed On 08-04-23 17:24:05 CDT by Kody Hurtado
--- NOTE | 2023-08-04 18:20 | RAD REPORT ---
EXAM DESCRIPTION: US - Renal Ultrasound-Complete - 08/04/2023 3:18 pm CLINICAL HISTORY: Hx of left renal lesion, cyst, microscopic hematur COMPARISON: Renal Ultrasound-Complete dated 05/17/2022 TECHNIQUE: Sonographic grayscale and color flow images of the kidneys were obtained. FINDINGS: Both kidneys are normal in size, and shape. Diffuse cortical echogenicity bilaterally with poor corticomedullary differentiation. The right kidney measures 9.3 cm unless. No hydronephrosis, focal mass, or echogenic calculi. The left kidney measures 10.3 cm in length. No hydronephrosis, focal mass, or echogenic calculi. Bilateral renal cortical cysts, largest measuring 1.6 cm in each kidney. IMPRESSION: Diffuse renal cortical hyperechogenicity, suggesting medical renal disease. Benign-appearing bilateral renal cysts.
[2023-08-04 19:53] VITALS: BP 149/61; TEMP 98.5
--- NOTE | 2023-08-04 20:06 | RAD REPORT ---
EXAM DESCRIPTION: US - Urinary Bladder - 08/04/2023 3:27 pm CLINICAL HISTORY: MICROSCOPIC HEMATURIA COMPARISON: Renal Ultrasound-Complete dated 08/04/2023 TECHNIQUE: Real-time sonographic evaluation of the urinary bladder with pre and postvoid volume luis urements was performed. FINDINGS: No radiopaque calculi. No bladder mass or other focal wall abnormality. Ureteral jets are visualized. Prevoid volume: 52 mL. No significant postvoid residual. IMPRESSION: No suspicious bladder wall abnormality or significant postvoid residual.
[2023-08-05] MEDS ORDERED: AMLODIPINE 5 MG TAB PO SCH (09:00)
--- NOTE | 2023-08-07 07:17 | ECHO ---
HEIGHT: 5 ft 2 in WEIGHT: 130 lb 11.2 oz DATE OF STUDY: 08/04/[address]: Linda Hernandez EMERGENCY SERVICE RESTORER-BC 2-DIMENSIONAL: YES M.MODE: YES DOPPLER: YES COLOR FLOW: YES TDS: PORTABLE: YES DEFINITY: BUBBLE STUDY: DIAGNOSIS: DYSPNEA ON EXERTION CARDIAC HISTORY: CATHERIZATION: NO SURGERY: NO PROSTHETIC VALVE: NO PACEMAKER: NO MEASUREMENTS (cm) DIASTOLIC (NORMALS) SYSTOLIC (NORMALS) IVSd 1.1 (0.6-1.2) LA Diam 2.5 (1.9-4.0) LVEF 66% LVIDd 4.0 (3.5-5.7) LVIDs 2.6 (2.0-3.5) %FS 36% LVPWd 1.2 (0.6-1.2) Ao Diam 3.2 (2.0-3.7) 2 DIMENSIONAL ASSESSMENT: RIGHT ATRIUM: NORMAL LEFT ATRIUM: NORMAL RIGHT VENTRICLE: NORMAL LEFT VENTRICLE: NORMAL TRICUSPID VALVE: MILD TRICUSPID REGURGITATION MITRAL VALVE: NORMAL PULMONIC VALVE: NORMAL AORTIC VALVE: CALCIFIED, NO AORTIC STENOSIS PERICARDIAL EFFUSION: NONE AORTIC ROOT: NORMAL LEFT VENTRICULAR WALL MOTION: NORMAL DOPPLER/COLOR FLOW: SEE BELOW COMMENTS: 1. NORMAL LEFT VENTRICULAR EJECTION FRACTION 60-65% WITH NORMAL WALL MOTION 2. MILD CONCENTRIC LEFT VENTRICULAR HYPERTROPHY 3. GRADE I DIASTOLIC DYSFUNCTION 4. MILD TRICUSPID REGURGITATION TECHNOLOGIST: PATRICIA FIELDS
== END 2023-08-04 19:40 | disposition home or self-care (01) | DRG 684 ==
LOC: ER 10:50 → ERHOLD 13:09 → 4TH 22:35
PROVIDERS: ADMIT Hospitalist; ATTEND Hospitalist
PROC: 0T9B70Z Drainage of Bladder with Drainage Device, Via Natural or Artificial Opening (ICD-10-PCS; principal; 2023-08-02)
DX: N17.9 Acute kidney failure, unspecified (principal); E78.5 Hyperlipidemia, unspecified; E87.6 Hypokalemia; I12.9 Hypertensive chronic kidney disease with stage 1 through stage 4 chronic kidney disease, or unspecified chronic kidney disease; N18.4 Chronic kidney disease, stage 4 (severe); D63.1 Anemia in chronic kidney disease; K21.9 Gastro-esophageal reflux disease without esophagitis; E87.5 Hyperkalemia; N40.0 Benign prostatic hyperplasia without lower urinary tract symptoms; R60.9 Edema, unspecified; R31.29 Other microscopic hematuria; Z79.4 Long term (current) use of insulin; Z79.82 Long term (current) use of aspirin; Z79.890 Hormone replacement therapy; Z79.899 Other long term (current) drug therapy
CPT/HCPCS: 36415; 71045; 71250; 76770; 76857; 78582; 80048; 80053; 80061; 80197; 81001; 82728; 82947; 83540; 83605; 83735; 83880; 84100; 84145; 84466; 84484; 84550; 85018; 85025; 85044; 85610; 85730; 86140; 93005; 93306; 93971; 96365; 96366; 96375; 99285; A9540; A9558; G0103; J0360; J0612; J1644; J1650; J2270; J7040

== ENCOUNTER 2023-11-10 20:58 | Inpatient (IN) | payer OTHER ==
--- OUTSIDE RECORDS SUMMARY | 2023-11-10 21:02 | XMS REPORT | Continuity of Care Document ---
Author Name Unknown Address [address] [facility] [place] [address] [facility] thconnect Address [address] [place] [address] Care Team Providers Care Visual Presentation Manager Name Role Phone Chrystal Walker Attending Clinician Unavail able Harshil Dunne Attending Clinician Unavailable Payers Payer Name Policy Type Policy Number Effective Date Expirati on Date Source [facility] Dual Complete Choice (Regional PPO [id number]) [id number] 2022 00:00:00 2023 00:00:00 [facility] MEDICAID [place] [id number] [facility] MEDICAID MC [id number] [facility] Problems Condition Name Condition Details Condition Category Status Onset Date Resolution Date Last Treatment Date Treating Clinician Comments Source [id number] BRAEDEN (generaliz ed anxiety disorder) Problem [facility] Chronic kidney disease stage 3B (disorder) Stage 3b chronic kidney disease Problem [facility] [id number] Essential hypertensi on Problem [facility] [id number] Mixed hyperlipid emia Problem [facility] [id number] Non-season al allergic rhinitis due to other allergic trigger Problem [facility] [id number] Benign prostatic hyperplasi a, unspecifie d whether lower urinary tract symptoms present Problem [facility] [id number] Absolute glaucoma of both eyes Problem [facility] [id number] Atopic dermatitis , unspecifie d type Problem [facility] [id number] Anemia of chronic disease Problem [facility] [id number] CKD (chronic kidney disease) stage 4, GFR 15-29 ml/min Problem [facility] [id number] Chronic gout due to renal impairment without tophus, unspecifie d site Problem [facility] [id number] Bilateral hearing loss, unspecifie d hearing loss type Problem [facility] Social History Social Habit Start Date Stop Date Quantity Comments Source History of Tobacco Use [facility] Sex Assigned At [facility] Smoking Status Start Date Stop Date Source Never Smoker [facility] Medications Ordered Medication Name Filled Medication Name Start Date Stop Date Current Medication? Ordering Clinician Indication Dosage Frequency Signature (SIG) Comments Components Source Nitroglycer in 0.4 MG Nitroglycer in 0.4 MG 620 00:00: 00 No Nitroglyce rin 0.4 MG Lokelma 10 GM Lokelma 10 GM 6-14 00:00: 00 No QD Lokelma 10 GM Iron (Ferrous Sulfate) 325 (65 Fe) MG Iron (Ferrous Sulfate) 325 (65 Fe) MG 6-14 00:00: 00 No 1{table t} Iron (Ferrous Sulfate) 325 (65 Fe) MG Citalopram Hydrobromid e 10 MG Citalopram Hydrobromid e 10 MG 2023- 6-11 00:00: 00 No 1{table t} QD Citalopram Hydrobromi de 10 MG Allopurinol 100 MG Allopurinol 100 MG 4-16 00:00: 00 No Allopurino l 100 MG Metoprolol Succinate ER 50 MG Metoprolol Succinate ER 50 MG 3-19 00:00: 00 No 1{table t} QD Metoprolol Succinate ER 50 MG Fluticasone Propionate 50 MCG/ACT Fluticasone Propionate 50 MCG/ACT 2022-05 0-16 00:00: 00 No 1{spray _in_eac h_nostr il} QD Fluticason e Propionate 50 MCG/ACT Claritin 10 MG Claritin 10 MG 2022-05 0-16 00:00: 00 No 1{table t} QD Claritin 10 MG Kenalog (Triamcinol one) Kenalog (Triamcinol one) 2019-05 008 00:00: 00 No 40mg [facility] Lumigan 0.01 % Lumigan 0.01 % No [...] 10 MG No QD Loratadine 10 MG Albuterol Sulfate HFA 108 (90 Base) MCG/ACT Albuterol Sulfate HFA 108 (90 Base) MCG/ACT No 1{puff_ as_need ed} 6xD Albuterol Sulfate HFA 108 (90 Base) MCG/ACT amLODIPine Besylate 10 MG amLODIPine Besylate 10 MG No QD amLODIPine Besylate 10 MG Breztri Aerosphere 160-9-4.8 MCG/ACT Breztri Aerosphere 160-9-4.8 MCG/ACT No 2{puffs } BID Breztri Aerosphere 160-9-4.8 MCG/ACT Furosemide 20 MG Furosemide 20 MG No 1{table t} QD Furosemide 20 MG Vital Signs Vital Name Observation Time Observation Value Comments S ource height 2023-10-31 11:20:00 65 [in_i] Commo n [facility] weight 2023-10-31 11:20:00 136 [lb_av] Comm on [facility] temperature 2023-10-31 11:20:00 98.4 [degF] Com [facility] bmi 2023-10-31 11:20:00 22.63 kg/m2 Comm on [facility] oximetry 2023-10-31 11:20:00 98 % Commo n [facility] respiratory rate 2023-10-31 11:20:00 17 /min Common [facility] blood pressure systolic 2023-10-31 11:20:00 140 mm[Hg] Common [facility] blood pressure diastolic 2023-10-31 11:20:00 60 mm[Hg] [facility] height 2023-09-05 14:40:00 65 [in_i] Commo n [facility] weight 2023-09-05 14:40:00 131 [lb_av] Comm on [facility] temperature 2023-09-05 14:40:00 98.7 [degF] Com mon [facility] bmi 2023-09-05 14:40:00 21.8 kg/m2 Commo n [facility] oximetry 2023-09-05 14:40:00 100 % Commo n [facility] respiratory rate 2023-09-05 14:40:00 16 /min Common [facility] blood pressure systolic 2023-09-05 14:40:00 130 mm[Hg] [facility] blood pressure diastolic 2023-09-05 14:40:00 60 mm[Hg] [facility] height 2023-08-08 09:00:00 65 [in_i] Commo n [facility] weight 2023-08-08 09:00:00 135 [lb_av] Comm on [facility] temperature 2023-08-08 09:00:00 98.4 [degF] Com mon [facility] bmi 2023-08-08 09:00:00 22.46 kg/m2 Comm on [facility] oximetry 2023-08-08 09:00:00 100 % Commo n [facility] respiratory rate 2023-08-08 09:00:00 16 /min Common [facility] blood pressure systolic 2023-08-08 09:00:00 140 mm[Hg] Common [facility] blood pressure diastolic 2023-08-08 09:00:00 62 mm[Hg] [facility] height 2023-07-18 09:30:00 65 [in_i] Commo n [facility] weight 2023-07-18 09:30:00 131.7 [lb_av] Co mmon [facility] temperature 2023-07-18 09:30:00 98.3 [degF] Com [facility] bmi 2023-07-18 09:30:00 21.91 kg/m2 Comm on [facility] oximetry 2023-07-18 09:30:00 99 % Commo n [facility] respiratory rate 2023-07-18 09:30:00 17 /min [facility] blood pressure systolic 2023-07-18 09:30:00 139 mm[Hg] Common [facility] blood pressure diastolic 2023-07-18 09:30:00 67 mm[Hg] [facility] height 2023-07-18 09:30:00 65 [in_i] Commo n [facility] weight 2023-07-18 09:30:00 131.7 [lb_av] Co mmon [facility] temperature 2023-07-18 09:30:00 98.3 [degF] Com [facility] bmi 2023-07-18 09:30:00 21.91 kg/m2 Comm on [facility] oximetry 2023-07-18 09:30:00 99 % Commo n [facility] respiratory rate 2023-07-18 09:30:00 17 /min Common [facility] blood pressure systolic 2023-07-18 09:30:00 139 mm[Hg] Common [facility] blood pressure diastolic 2023-07-18 09:30:00 67 mm[Hg] [facility] height 2023-03-06 13:30:00 65 [in_i] Commo n [facility] weight 2023-03-06 13:30:00 137.8 [lb_av] Co [facility] temperature 2023-03-06 13:30:00 98.9 [degF] Com [facility] bmi 2023-03-06 13:30:00 22.93 kg/m2 Comm on [facility] oximetry 2023-03-06 13:30:00 99 % Commo n [facility] blood pressure systolic 2023-03-06 13:30:00 130 mm[Hg] Common [facility] blood pressure diastolic 2023-03-06 13:30:00 60 mm[Hg] [facility] height 2023-01-18 11:00:00 65 [in_i] Commo n [facility] weight 2023-01-18 11:00:00 136.0 [lb_av] Co [facility] temperature 2023-01-18 11:00:00 98.4 [degF] Com [facility] bmi 2023-01-18 11:00:00 22.63 kg/m2 Comm on [facility] oximetry 2023-01-18 11:00:00 98 % Commo n [facility] respiratory rate 2023-01-18 11:00:00 18 /min [facility] blood pressure systolic 2023-01-18 11:00:00 139 mm[Hg] [facility] blood pressure diastolic 2023-01-18 11:00:00 64 mm[Hg] Common [facility] height 2023-01-03 09:20:00 65 [in_i] Commo n [facility] weight 2023-01-03 09:20:00 135.8 [lb_av] Co mmon [facility] temperature 2023-01-03 09:20:00 98.4 [degF] Com mon [facility] bmi 2023-01-03 09:20:00 22.6 kg/m2 Commo n [facility] oximetry 2023-01-03 09:20:00 99 % Commo n [facility] respiratory rate 2023-01-03 09:20:00 17 /min Common [facility] blood pressure systolic 2023-01-03 09:20:00 139 mm[Hg] Common [facility] blood pressure diastolic 2023-01-03 09:20:00 73 mm[Hg] [facility] height 2022-10-19 11:00:00 65 [in_i] Commo n [facility] weight 2022-10-19 11:00:00 139.0 [lb_av] Co mmon [facility] temperature 2022-10-19 11:00:00 98.1 [degF] Com mon [facility] bmi 2022-10-19 11:00:00 23.13 kg/m2 Comm on [facility] oximetry 2022-10-19 11:00:00 98 % Commo n [facility] respiratory rate 2022-10-19 11:00:00 18 /min [facility] blood pressure systolic 2022-10-19 11:00:00 138 mm[Hg] Common [facility] blood pressure diastolic 2022-10-19 11:00:00 72 mm[Hg] Common [facility] height 2022-06-21 10:20:00 65 [in_i] Commo n [facility] weight 2022-06-21 10:20:00 137.5 [lb_av] Co [facility] temperature 2022-06-21 10:20:00 97.3 [degF] Com [facility] bmi 2022-06-21 10:20:00 22.88 kg/m2 Comm on [facility] oximetry 2022-06-21 10:20:00 99 % Commo n [facility] respiratory rate 2022-06-21 10:20:00 18 /min [facility] blood pressure systolic 2022-06-21 10:20:00 139 mm[Hg] Common [facility] blood pressure diastolic 2022-06-21 10:20:00 72 mm[Hg] Common [facility] height 2022-06-21 10:30:00 65 [in_i] Commo n [facility] weight 2022-06-21 10:30:00 137.5 [lb_av] Co [facility] temperature 2022-06-21 10:30:00 97.3 [degF] Com [facility] bmi 2022-06-21 10:30:00 22.88 kg/m2 Comm on [facility] oximetry 2022-06-21 10:30:00 99 % Commo n [facility] respiratory rate 2022-06-21 10:30:00 18 /min Common [facility] blood pressure systolic 2022-06-21 10:30:00 139 mm[Hg] [facility] blood pressure diastolic 2022-06-21 10:30:00 72 mm[Hg] [facility] height 2022-03-01 10:50:00 65 [in_i] Commo n [facility] weight 2022-03-01 10:50:00 138.6 [facility]lb_av[facility] 2022-[facility]-01 10:50:00 97.9 [degF] Com [facility] bmi 2022-03-01 10:50:00 23.06 kg/m2 Comm on [facility] oximetry 2022-03-01 10:50:00 100 % Commo n [facility] respiratory rate 2022-03-01 10:50:00 17 /min Common [facility] blood pressure systolic 2022-03-01 10:50:00 137 mm[Hg] Common [facility] blood pressure diastolic 2022-03-01 10:50:00 71 mm[Hg] Common [facility] height 2022-02-04 08:50:00 65 [in_i] Commo n [facility] weight 2022-02-04 08:50:00 139.1 [lb_av] Co [facility] temperature 2022-02-04 08:50:00 97.9 [degF] Com [facility] bmi 2022-02-04 08:50:00 23.14 kg/m2 Comm on [facility] oximetry 2022-02-04 08:50:00 100 % Commo n [facility] respiratory rate 2022-02-04 08:50:00 18 /min Common [facility] blood pressure systolic 2022-02-04 08:50:00 132 mm[Hg] [facility] blood pressure diastolic 2022-02-04 08:50:00 73 mm[Hg] Common [facility] height 2021-10-12 10:00:00 65 [in_i] Commo n [facility] weight 2021-10-12 10:00:00 138.2 [lb_av] Co [facility] temperature 2021-10-12 10:00:00 98.1 [degF] Com [facility] bmi 2021-10-12 10:00:00 23 kg/m2 Commo n [facility] oximetry 2021-10-12 10:00:00 99 % Commo n [facility] respiratory rate 2021-10-12 10:00:00 18 /min [facility] blood pressure systolic 2021-10-12 10:00:00 135 mm[Hg] Common [facility] blood pressure diastolic 2021-10-12 10:00:00 76 mm[Hg] [facility] height 2021-06-14 13:20:00 65 [in_i] Commo n [facility] weight 2021-06-14 13:20:00 140.3 [lb_av] Co [facility] temperature 2021-06-14 13:20:00 98.6 [degF] Com [facility] bmi 2021-06-14 13:20:00 23.34 kg/m2 Comm on [facility] oximetry 2021-06-14 13:20:00 98 % Commo n [facility] respiratory rate 2021-06-14 13:20:00 18 /min [facility] blood pressure systolic 2021-06-14 13:20:00 136 mm[Hg] Common [facility] blood pressure diastolic 2021-06-14 13:20:00 72 mm[Hg] Common [facility] height 2021-06-14 13:20:00 65 [in_i] Commo n [facility] weight 2021-06-14 13:20:00 140.3 [lb_av] Co [facility] temperature 2021-06-14 13:20:00 98.6 [degF] Com [facility] bmi 2021-06-14 13:20:00 23.34 kg/m2 Comm on [facility] oximetry 2021-06-14 13:20:00 98 % Commo n [facility] blood pressure systolic 2021-06-14 13:20:00 136 mm[Hg] [facility] blood pressure diastolic 2021-06-14 13:20:00 72 mm[Hg] [facility] Encounters Start Date/Time End Date/Time Encounter Type Admission Type Attending Clinicians Care Facility Care Department Encounter ID Source 2023-11-07 16:02:00 Outpatient Chrystal Walker [facility]C [facility] [id number] [facility] 2023-08-23 10:32:00 Outpatient Chrystal Walker [facility] [id number] [facility] 2023-07-31 14:11:00 Outpatient Chrystal Walker STLC STLML[facility] [id number] [facility] 2023-07-18 10:40:00 Outpatient Chrystal Walker [facility] [id number] [facility] 2023-06-27 13:29:00 Outpatient Dunne, Harshil STL[facility]C [facility] [id number] [facility] 2023-03-06 13:24:00 Outpatient Dunne, Harshil [facility] [id number] [facility] 2023-01-02 13:44:00 Outpatient Dunne, Harshil [facility] [id number] [facility] 2022-06-17 10:26:01 Outpatient Dunne, Harshil [facility] ST[facility] [id number] [facility] 2021-06-16 14:39:24 Outpatient Dunne, Harshil [facility] [id number] [facility] 2021-06-16 14:03:38 Outpatient Dunne, Harshil [facility] ST[facility] [id number] [facility] 2021-06-16 13:44:46 Outpatient Dunne, Harshil [facility] ST[facility] [id number] [facility] 2021-06-16 13:36:15 Outpatient Dunne, Harshil [facility] ST[facility] [id number] [facility] 2021-06-16 13:31:27 Outpatient Dunne, Harshil [facility] [id number] [facility] 2021-06-16 12:56:38 Outpatient Dunne, Harshil [facility] ST[facility] [id number] [facility] 2021-06-16 12:28:06 Outpatient Dunne, Harshil [facility] [id number] [facility] 2021-06-16 12:27:09 Outpatient Dunne, Harshil [facility] [id number] [facility] 2021-06-16 12:25:55 Outpatient Dunne, Harshil [facility] ST[facility] [id number] [facility] 2021-06-16 12:24:00 Outpatient Dunne, Harshil [facility] ST[facility] [id number] [facility] 2021-06-16 12:00:42 Outpatient Dunne, Harshil [facility] ST[facility] [id number] [facility] 2021-06-16 11:45:34 Outpatient Dunne, Harshil [facility] ST[facility] [id number] [facility] 2021-06-16 11:27:29 Outpatient Dunne, Harshil [facility] [id number] [facility] 2021-06-16 11:23:46 Outpatient Dunne, Harshil [facility] ST[facility] [id number] [facility] 2021-06-16 11:16:21 Outpatient Dunne, Harshil [facility] ST[facility] [id number] [facility] 2021-06-16 11:12:14 Outpatient Harshil Dunne [facility] [id number] [facility] 2023-11-09 00:00:00 2023-11-09 00:00:00 (TEL) STLMLC ST[facility] [id number] [facility] 2023-10-31 00:00:00 2023-10-31 00:00:00 OFFICE VISIT ESTAB PT LEVEL 4 [facility] ST[facility] [id number] [facility] 2023-10-31 00:00:00 2023-10-31 00:00:00 (TEL) STLMLC ST[facility]C [id number] [facility] 2023-10-30 00:00:00 2023-10-30 00:00:00 (TEL) STLMLC STL[facility]C [id number] [facility] 2023-10-06 00:00:00 2023-10-06 00:00:00 (TEL) STLMLC ST[facility]C [id number] [facility] 2023-09-20 00:00:00 2023-09-20 00:00:00 (TEL) STLMLC ST[facility]C [id number] [facility] 2023-09-13 00:00:00 2023-09-13 00:00:00 (TEL) STLMLC ST[facility]C [id number] [facility] 2023-09-05 00:00:00 2023-09-05 00:00:00 OFFICE VISIT ESTAB PT LEVEL 4 [facility] ST[facility] [id number] [facility] 2023-08-08 00:00:00 2023-08-08 00:00:00 (HOSP F/U) Hospital Follow Up [facility] ST[facility] [id number] [facility] 2023-08-02 00:00:00 2023-08-02 00:00:00 (TEL) STLMLC STL[facility]C [id number] [facility] 2023-08-02 00:00:00 2023-08-02 00:00:00 (TEL) STLMLC ST[facility]C [id number] [facility] 2023-07-18 00:00:00 2023-07-18 00:00:00 OFFICE VISIT NEW PT LEVEL 4 [facility] ST[facility] [id number] [facility] 2023-07-18 00:00:00 2023-07-18 00:00:00 SUB ANNUAL [facility] WELLNESS VISIT STLMLC STLMLC [id number] [facility] 2023-06-15 00:00:00 2023-06-15 00:00:00 (TEL) STLMLC STLMLC [id number] [facility] 2023-03-06 00:00:00 2023-03-06 00:00:00 (TEL) STLMLC STLMLC [id number] [facility] 2023-03-06 00:00:00 2023-03-06 00:00:00 OFFICE VISIT ESTAB PT LEVEL 3 [facility]C ST[facility]C [id number] [facility] 2023-01-18 00:00:00 2023-01-18 00:00:00 OFFICE VISIT ESTAB PT LEVEL 4 [facility]C ST[facility] [id number] [facility] 2023-01-03 00:00:00 2023-01-03 00:00:00 OFFICE VISIT ESTAB PT LEVEL 4 [facility] [id number] [facility] 2023-01-02 00:00:00 2023-01-02 00:00:00 (TEL) STLMLC STL[facility]C [id number] [facility] 2022-10-19 00:00:00 2022-10-19 00:00:00 OFFICE VISIT ESTAB PT LEVEL 4 [facility]C ST[facility] [id number] [facility] 2022-07-06 00:00:00 2022-07-06 00:00:00 (TEL) STLMLC STL[facility]C [id number] [facility] 2022-06-21 00:00:00 2022-06-21 00:00:00 OFFICE VISIT ESTAB PT LEVEL 4 [facility] ST[facility]C [id number] [facility] 2022-06-21 00:00:00 2022-06-21 00:00:00 SUB ANNUAL [facility] WELLNESS VISIT STLMLC STLMLC [id number] [facility] 2022-06-21 00:00:00 2022-06-21 00:00:00 (TEL) STLMLC STLMLC [id number] [facility] 2022-03-01 00:00:00 2022-03-01 00:00:00 OFFICE VISIT ESTAB PT LEVEL 4 [facility] ST[facility] [id number] [facility] 2022-02-11 00:00:00 2022-02-11 00:00:00 (TEL) STLMLC STLMLC [id number] [facility] 2022-02-04 00:00:00 2022-02-04 00:00:00 OFFICE VISIT EST PT LEVEL 3 [facility]C ST[facility]C [id number] [facility] 2022-02-03 00:00:00 2022-02-03 00:00:00 (TEL) STLMLC STLMLC [id number] [facility] 2021-10-12 00:00:00 2021-10-12 00:00:00 OFFICE VISIT ESTAB PT LEVEL 4 [facility]C ST[facility]C [id number] [facility] 2021-07-29 00:00:00 2021-07-29 00:00:00 (TEL) STLMLC STLMLC [id number] [facility] 2021-07-13 00:00:00 2021-07-13 00:00:00 (TEL) STLMLC STLMLC [id number] [facility] 2021-07-05 00:00:00 2021-07-05 00:00:00 (TEL) STLMLC STLMLC [id number] [facility] 2021-06-14 00:00:00 2021-06-14 00:00:00 OFFICE VISIT EST PT LEVEL 3 [facility] ST[facility]C [id number] [facility] 2021-06-14 00:00:00 2021-06-14 00:00:00 SUB ANNUAL [facility] WELLNESS VISIT STLMLC STL[facility]C [id number] [facility] 2021-05-24 00:00:00 2021-05-24 00:00:00 (TEL) STLMLC ST[facility]C [id number] [facility] 2021-05-20 00:00:00 2021-05-20 00:00:00 (TEL) STLMLC ST[facility]C [id number] [facility] 2021-03-11 00:00:00 2021-03-11 00:00:00 (TEL) STLMLC STLMLC [id number] [facility] 2021-03-08 00:00:00 2021-03-08 00:00:00 (TEL) STLMLC STLMLC [id number] [facility] 2021-02-15 00:00:00 2021-02-15 00:00:00 Outpatient [facility] [id number] [facility] 2021-01-20 00:00:00 2021-01-20 00:00:00 Outpatient [facility] [id number] [facility] 2020-12-16 00:00:00 2020-12-16 00:00:00 Outpatient [facility] ST[facility] [id number] [facility] 2020-12-16 00:00:00 2020-12-16 00:00:00 Outpatient [facility] [id number] [facility] 2020-09-22 00:00:00 2020-09-22 00:00:00 Outpatient [facility] [id number] [facility] 2020-09-22 00:00:00 2020-09-22 00:00:00 Outpatient [facility] [id number] [facility] 2020-07-22 00:00:00 2020-07-22 00:00:00 Outpatient [facility] [id number] [facility] 2020-07-01 00:00:00 2020-07-01 00:00:00 Outpatient [facility] [id number] [facility] 2020-06-24 00:00:00 2020-06-24 00:00:00 Outpatient [facility] [id number] [facility] 2020-06-23 00:00:00 2020-06-23 00:00:00 Outpatient [facility] [id number] [facility] 2020-06-11 00:00:00 2020-06-11 00:00:00 Outpatient [facility] [id number] [facility] 2020-06-02 00:00:00 2020-06-02 00:00:00 Outpatient [facility] [id number] [facility] 2020-03-18 00:00:00 2020-03-18 00:00:00 Outpatient [facility] [id number] [facility] 2020-03-18 00:00:00 2020-03-18 00:00:00 Outpatient [facility] ST[facility] [id number] [facility] 2020-03-16 00:00:00 2020-03-16 00:00:00 Outpatient [facility]C ST[facility] [id number] [facility] 2020-02-27 00:00:00 2020-02-27 00:00:00 Outpatient [facility] ST[facility] [id number] [facility] 2020-02-24 00:00:00 2020-02-24 00:00:00 Outpatient [facility] [id number] [facility] 2020-02-17 00:00:00 2020-02-17 00:00:00 Outpatient [facility] [id number] [facility] 2020-02-12 00:00:00 2020-02-12 00:00:00 Outpatient [facility] [id number] [facility] 2020-02-03 09:00:00 2020-02-03 09:00:[facility] [id number] [facility] 2020-01-28 11:00:00 2020-01-28 11:00:00 [facility] [id number] [facility] 2020-01-20 09:00:00 2020-01-20 09:00:00 [facility] [id number] [facility] 2020-01-13 08:50:00 2020-01-13 08:50:00 [facility] [id number] [facility] 2020-01-06 09:00:00 2020-01-06 09:00:00 [facility] [id number] [facility] 2019-12-30 09:00:00 2019-12-30 09:00:00 [facility] [id number] [facility] 2019-12-23 08:45:00 2019-12-23 08:45:00 [facility] [id number] [facility] 2019-12-18 11:30:00 2019-12-18 11:30:00 [facility] [id number] [facility] 2019-12-16 09:00:00 2019-12-16 09:00:[address] [facility] [id number] [facility] 2019-12-09 09:00:00 2019-12-09 09:00:00 [facility] [id number] [facility] 2019-12-02 09:30:00 2019-12-02 09:30:00 [facility] [id number] [facility] 2019-11-25 09:00:00 2019-11-25 09:00:00 [facility] [id number] [facility] 2019-11-18 09:00:00 2019-11-18 09:00:00 [facility] [id number] [facility] 2019-11-12 11:00:00 2019-11-12 11:00:00 [facility] [id number] [facility] 2019-11-11 10:00:00 2019-11-11 10:00:00 [facility] [id number] [facility] 2019-11-07 11:23:00 2019-11-07 11:23:[address] [facility] [id number] [facility] 2019-11-04 09:00:00 2019-11-04 09:00:00 [facility] [id number] [facility] 2019-10-28 09:00:00 2019-10-28 09:00:00 [facility] [id number] [facility] 2019-10-22 13:45:00 2019-10-22 13:45:[address] [facility] [id number] [facility] 2019-10-15 09:00:00 2019-10-15 09:00:00 [facility] [id number] [facility] 2019-10-07 09:00:00 2019-10-07 09:00:00 [facility] [id number] [facility] 2019-09-30 10:00:00 2019-09-30 10:00:00 [facility] [id number] [facility] 2019-09-23 08:08:00 2019-09-23 08:08:00 [facility] [id number] [facility] 2019-09-18 15:45:00 2019-09-18 15:45:[address] [facility] [id number] [facility] 2019-09-18 15:45:00 2019-09-18 15:45:00 [facility] [id number] [facility] 2019-08-08 10:00:00 2019-08-08 10:00:00 [facility] [id number] [facility] 2019 16:38:00 2019 16:38:00 [facility] [id number] [facility] 2019 14:22:00 2019 14:22:00 [facility] [id number] [facility] 2019 14:00:00 2019 14:00:00 [facility] [id number] [facility] Results Test Description Test Time Test Comments Results Result Co mments Source LIPID PANEL WITH REFLEX DIRECT [id number] 00:00:00* Test Item Value Reference Range Interpretation Comme nts CALC LDL CHOL (test code = 76179-3) 86 MG/DL See_Comment [Automated [employer]] The system which generated this result [...] code = 2085-9) 41 MG/DL See_Comment [Automated [employer]] The system which generated this result transmitted reference range: >39 MG/DL. The reference range was not used to interpret this result as normal/abnormal. RISK RATIO LDL/HDL (test code = 82567-9) 2.10 RATIO See_Comment [Automated message] The system which generated this result transmitted reference range: <3.55 RATIO. The reference range was not used to interpret this result as normal/abnormal. TRIGLYCERIDES (test code = 2571-8) 122 MG/DL See_Comment [Automated [employer]] The system which generated this result transmitted reference range: <150 MG/DL. The reference range was not used to interpret this result as normal/abnormal. PATHOLOGIST SMEAR [id number] 00:00:00* Test Item Value Reference Range Interpretation Comme nts BASOPHILS (test code = 17082-1) 0.7 % DIAGNOSIS: (test code = 97083-7) (NOTE) COMMENTS (test code = 77387-0) (NOTE) EOSINOPHILS (test code = 71594-0) 4.6 % HEMATOCRIT (test code = 85558-1) 31.3 % See_Comment L [[employer]] The system which generated this result transmitted reference range: 40.0-51.0 %. The reference range was not used to interpret this result as normal/abnormal. HEMOGLOBIN (test code = 718-7) 10.1 G/DL See_Comment L [[employer]] The system which generated this result transmitted reference range: 13.5-17.0 G/DL. The reference range was not used to interpret this result as normal/abnormal. LYMPHOCYTES (test code = 46828-0) 34.9 % MCH (test code = 52438-1) 30.4 PG See_Comment [[employer]] The system which generated this result transmitted reference range: 25.0-33.0 PG. The reference range was not used to interpret this result as normal/abnormal. MCHC (test code = 75277-9) 32.3 G/DL See_Comment [[employer]] The system which generated this result transmitted reference range: 31.0-36.0 G/DL. The reference range was not used to interpret this result as normal/abnormal. MCV (test code = 64351-4) 94.3 fL See_Comment [Automated messa ge] The system which generated this result transmitted reference range: 80.0-99.0 fL. The reference range was not used to interpret this result as normal/abnormal. MICROSCOPIC DESCRIPTION: (test code = 51148-0) (NOTE) MONOCYTES (test code = 73418-3) 9.2 % NEUTROPHILS (test code = 13641-4) 50.3 % NUCLEATED RBCS (test code = 75262-9) 0.0 /100 WBC'S See_Comment [Automated messa ge] The system which generated this result transmitted reference range: 0.0 /100 WBC'S. The reference range was not used to interpret this result as normal/abnormal. PATHOLOGIST: (test code = 13629-6) (NOTE) PLATELET COUNT (test code = 07845-7) 265 K/UL See_Comment [Automated messa ge] The system which generated this result transmitted reference range: 130-400 K/UL. The reference range was not used to interpret this result as normal/abnormal. RBC (test code = 18992-9) 3.32 M/UL See_Comment L [Automated messa ge] The system which generated this result transmitted reference range: 4.50-6.10 M/UL. The reference range was not used to interpret this result as normal/abnormal. RDW (test code = 60127-8) 12.8 % See_Comment [Automated messa ge] The system which generated this result transmitted reference range: 11.5-15.0 %. The reference range was not used to interpret this result as normal/abnormal. WBC (test code = 75601-9) 7.0 K/UL See_Comment [Automated messa ge] The system which generated this result transmitted reference range: 3.5-11.0 K/UL. The reference range was not used to interpret this result as normal/abnormal. COMPREHENSIVE METABOLIC [id number] 00:00:00* Test Item Value Reference Range Interpretation [...] result as normal/abnormal. CALCIUM (test code = 94315-0) 9.8 MG/DL See_Comment [Automated messa ge] The system which generated this result transmitted reference range: 8.5-10.5 MG/DL. The reference range was not used to interpret this result as normal/abnormal. CALC A/G RATIO (test code = 1759-0) 1.5 RATIO See_Comment [Automated messa ge] The system [...] as normal/abnormal. CALC GLOBULIN (test code = 03480-2) 2.9 G/DL See_Comment [Automated messa ge] The [...] normal/abnormal. eGFR (2020 CKD-EPI) (test code = 33002-4) 35 ML/MIN/1.73 See_Comment L [Automated messa ge] [...] POC, COVID 19 Antigen + Flu by SofiaPOC, COVID 19 Antigen + Flu by Adelina
[2023-11-10] MEDS ORDERED: ASPIRIN 81 MG CHEWABLE TABLET ONE (21:39)
[2023-11-10] MEDS ORDERED: MORPHINE 4 MG/ML SYR ONE (21:39)
[2023-11-10 21:49] LABS: PT Prothrombin Time 10.4 SECONDS (9.4-12.5); Protime INR 0.94
[2023-11-10 21:51] LABS: Absolute Basophils 0.1 K/uL (0-0.5); Absolute Eosinophils 0.2 K/uL (0-0.5); Absolute Lymphocytes (CBC) 1.6 K/uL (0.7-4.9); Absolute Monocytes 0.7 K/uL (0.1-1.3); Absolute Neutrophil 3.9 K/uL (1.8-8.0); Basophils % 0.9 % (0-1.3); Eosinophils % 2.7 % (0-4.4); Hematocrit 22.6 % (39.6-49.0); Hemoglobin 7.6 g/dL (13.6-17.9); Lymphocytes % 25.3 % (15.3-44.8); MCHC 33.8 g/dL (32.0-36.0); MCV 94.7 fL (80-100); MPV 7.9 fL (7.6-11.3); Monocytes % 11.3 % (3.3-12.3); Neutrophils % 59.8 % (41.7-73.7); Nucleated Red Blood Cells % 0.1 % (0-0); Platelets 246 thou/uL (152-406); RBC Red Blood Cell Count 2.39 M/uL (4.33-5.43); Red Cell Distribution Width 13.9 % (12.1-15.2)
--- NOTE | 2023-11-10 21:59 | RAD REPORT ---
EXAM DESCRIPTION: RAD - Chest Single View - 11/10/2023 9:44 pm CLINICAL HISTORY: CHEST PAIN Chest pain. COMPARISON: <Comparisons> FINDINGS: Portable technique limits examination quality. The lungs are grossly clear. The heart is normal in size. No displaced fractures. IMPRESSION: No acute intrathoracic process suspected.
[2023-11-10 22:07] LABS: ALT/SGPT 68 U/L (16-61); AST/SGOT 23 U/L (15-37); Albumin 3.7 g/dL (3.4-5.0); Alkaline Phosphatase 104 U/L (45-117); Anion Gap 11.5 mEq/L (5.0-15.0); BUN Blood Urea Nitrogen 56 mg/dL (7-18); Bicarbonate 21 mEq/L (21-32); Bilirubin Total 0.4 mg/dL (0.2-1.0); Globulin 3.7 g/dL (2.3-3.5); Glomerular Filtration Rate 19 ml/min (=/>90); Glucose Level 146 mg/dL (74-106); Magnesium 2.8 mg/dL (1.6-2.4); NT PRO-BNP 768 pg/mL (<450); Potassium 4.5 mEq/L (3.5-5.1); Protein, Total 7.4 g/dL (6.4-8.2); Sodium Level 138 mEq/L (136-145); Troponin High Sensitivity 12.4 pg/mL (<58.9)
[2023-11-10 22:13] LABS: Bilirubin Direct < 0.2 mg/dL (0-0.2); Bilirubin Indirect, Calculated 0.2 mg/dL (0.2-0.8)
[2023-11-10 23:05] LABS: Specific Gravity 1.011 (1.005-1.030); Sqamous Epithelial None Seen /HPF (None Seen); Urine Bacteria None Seen /HPF (<20); Urine Bilirubin NEGATIVE (Negative); Urine Blood 2+ (Negative); Urine Clarity Clear (Clear); Urine Color Light-Yellow (Yellow); Urine Crystals Unidentified Few /HPF (None Seen); Urine Culture Reflex Order NOT NEEDED; Urine Glucose NEGATIVE (Negative); Urine Ketones NEGATIVE (Negative); Urine Micro Reflex YN NO BILL MICROSCOPIC; Urine Nitrite NEGATIVE (Negative); Urine Protein 2+ (Negative); Urine RBC 21-50 /HPF (None Seen); Urine Urobilinogen Normal (Normal); Urine WBC <5 /HPF (<5)
[2023-11-11] MEDS ORDERED: CEFTRIAXONE 1000 MG/VIAL ONE (00:25)
[2023-11-11] MEDS ORDERED: NA CHLORIDE 0.9% 250 ML ONE (00:26)
[2023-11-11] MEDS ORDERED: AZITHROMYCIN 500 MG INJ IVPB ONE (00:26)
--- NOTE | 2023-11-11 00:37 | EDPHYS ---
Physician Documentation [facility] Name: Iam Nelson Age: 78 yrs Sex: Male : 1945 Arrival Date: 11/10/2023 Time: 20:58 Bed 3 Private MD: ED Physician Oz Mercedes HPI: 11/09 21:30 This 78 yrs old Male presents to ER via Ambulatory with complaints of cp Headache, Chest Pain. 21:30 The patient or guardian reports chest pain that is located primarily in the anterior cp chest wall. 21:30 Onset: 1 week(s) ago, intermittent. cp 21:30 Associated signs and symptoms: Pertinent positives: headache, shortness of breath, cp Pertinent negatives: abdominal pain, diaphoresis, dizziness. 21:30 The chest pain is described as a pressure, sharp. Duration: The patient or guardian cp reports multiple episodes, that are intermittent, has been taking oral nitro for relief. 21:30 Severity of pain: in the emergency department the pain is unchanged despite home cp interventions. Historical: - Allergies: 21:21 No Known Allergies; vc1 - Home Meds: 21:16 Nitroglycerin SL [Active]; amlodipine 10 mg tablet daily [Active]; losartan 25 mg oral vc1 tablet [Active]; pravastatin 40 mg oral tablet daily [Active]; allopurinol 100 mg Oral tablet daily [Active]; losartan 25 mg Oral tab 1 tab once daily for Hypertension [Active]; metoprolol tartrate 50 mg oral tablet daily [Active]; - PMHx: 21:16 Cataracts; Hyperlipidemia; Hypertension; inflammed prostate; vc1 - PSHx: 21:16 None; vc1 - Immunization history:: Client reports receiving the 2nd dose of the Covid vaccine, Flu vaccine is not up to date. - Infectious Disease History:: Denies. - Social history:: Smoking status: Patient denies any tobacco usage or history of. ROS: 21:35 Constitutional: Negative for body aches, chills, fever, poor PO intake, cp 21:35 Eyes: Negative for injury, pain, redness, and discharge, cp 21:35 ENT: Negative for drainage from ear(s), ear pain, sore throat, difficulty swallowing, difficulty handling secretions, 21:35 Cardiovascular: Positive for chest pain, edema, Negative for palpitations, 21:35 Respiratory: Positive for shortness of breath, Negative for cough, wheezing, 21:35 Abdomen/GI: Negative for abdominal pain, vomiting, diarrhea, constipation, 21:35 Back: Negative for radiated pain, 21:35 Skin: Negative for rash, 21:35 Neuro: Positive for headache, Negative for altered mental status, syncope, weakness, 21:35 All other systems are negative, Exam: 21:17 ECG was reviewed by the Attending Physician. cp 21:40 Constitutional: The patient appears in no acute distress, alert, awake, cp non-diaphoretic, non-toxic, well developed, well nourished, uncomfortable, 21:40 Head/Face: Normocephalic, atraumatic. cp 21:40 Eyes: Periorbital structures: appear normal, Pupils: equal, round, and reactive to light and accomodation, Extraocular movements: intact throughout, Conjunctiva: normal, no exudate, no injection, Sclera: no appreciated abnormality, Lids and lashes: appear normal, bilaterally, 21:40 ENT: External ear(s): are unremarkable, Nose: is normal, Mouth: Lips: moist, Oral mucosa: pink and intact, moist, Posterior pharynx: Airway: no evidence of obstruction, patent, 21:40 Neck: ROM/movement: is normal, is supple, without pain, no range of motions limitations, no meningismus, 21:40 Chest/axilla: Inspection: normal, Palpation: crepitus, is not appreciated, tenderness, is not appreciated, 21:40 Cardiovascular: Rate: tachycardic, Rhythm: regular, Edema: ankle edema, that is mild, JVD: is not appreciated, 21:40 Respiratory: the patient does not display signs of respiratory distress, Respirations: normal, no use of accessory muscles, no retractions, labored breathing, is not present, Breath sounds: decreased breath sounds, are not appreciated, wheezing: is not appreciated, 21:40 Abdomen/GI: Inspection: abdomen appears normal, Bowel sounds: active, all quadrants, Palpation: abdomen is soft and non-tender, in all quadrants, 21:40 Back: CVA tenderness, is absent, 21:40 Skin: cellulitis, is not appreciated, no rash present. 21:40 Neuro: Orientation: is normal, Mentation: is normal, Vital Signs: 21:15 BP 179 / 65; Pulse 101; Resp 16; Temp 97.7; Pulse Ox 96% ; vc1 21:26 BP 172 / 69; Pulse 103; Resp 18; Pulse Ox 100% on R/A; Pain 10/10; al5 21:50 BP 156 / 67; Pulse 95; Resp 16; Pulse Ox 99% on R/A; al5 22:46 BP 152 / 69; Pulse 97; Resp 17; Pulse Ox 98% on R/A; Pain 6/10; al5 23:06 BP 155 / 67; Pulse 90; Resp 17; Pulse Ox 98% on R/A; Pain 6/10; al5 23:25 BP 152 / 68; Pulse 87; Resp 17; Pulse Ox 98% on R/A; Pain 0/10; al5 11/10 00:45 BP 167 / 64; Pulse 94; Resp 18; Temp 97.7; Pulse Ox 97% on R/A; Pain 0/10; kd4 01:38 BP 129 / 59; Pulse 76; Resp 18; Temp 97.8; Pulse Ox 96% on R/A; Pain 0/10; kd4 02:12 Weight 63.5 kg; Height 5 ft. 5 in. ; jw7 02:37 BP 129 / 89; Pulse 78; Resp 16; Pulse Ox 97% on R/A; Pain 0/10; kd4 02:12 Body Mass Index 23.30 (63.50 kg, 165.1 cm) jw7 21:26 Pain Scale: Adult al5 22:46 Pain Scale: Adult al5 23:06 Pain Scale: Adult al5 23:25 Pain Scale: Adult al5 11/10 00:45 Pain Scale: Adult kd4 01:38 Pain Scale: Adult kd4 02:37 Pain Scale: Adult kd4 MDM: 11/09 21:05 Patient medically screened. cp 11/10 00:35 Data reviewed: vital signs, nurses notes, lab test result(s), EKG, radiologic studies, cp CT scan, plain films, and as a result, I will admit patient. 00:35 Differential diagnosis: acute myocardial infarction, pericarditis, pleurisy, pneumonia, cp pneumothorax, stable angina, unstable angina. The patient was given aspirin in the Emergency Department. Management of patient was discussed with the following: Hospitalist: DR Diaz will admit after discussion. I considered the following discharge prescriptions or medication management in the emergency department Medications were administered in the Emergency Department. See MAR. Independent interpretation of the following test(s) in the Emergency Department EKG: See my EKG interpretation above. Care significantly affected by the following chronic conditions: Hypertension. 11/09 21:29 Order name: Basic Metabolic Panel; Complete Time: 23:28 cp 11/09 23:28 Interpretation: Normal except: CL 110; GLUC 146; BUN 56; CRE 3.23; GFR 19. cp 11/09 21:29 Order name: CBC with Diff; Complete Time: 23:28 cp 11/09 23:28 Interpretation: Normal except: RBC 2.39; HGB 7.6; HCT 22.6. cp 11/09 21:29 Order name: LFT's; Complete Time: 23:28 cp 11/10 00:17 Interpretation: Normal except: ALT 68; GLOB 3.7; A/G 1.0. cp 11/09 21:29 Order name: Magnesium; Complete Time: 23:28 cp 11/09 21:29 Order name: NT PRO-BNP; Complete Time: 23:28 cp 11/10 00:17 Interpretation: Abnormal: NT PRO-BNP 768. cp 11/09 21:29 Order name: PT-INR; Complete Time: 23:28 cp 11/09 21:29 Order name: Troponin HS; Complete Time: 23:28 cp 11/09 21:29 Order name: Urinalysis W/Microscopic; Complete Time: 23:28 cp 11/09 23:29 Interpretation: Normal except: UBLD 2+; UPROT 2+; URBC 21-50. cp 11/10 00:20 Order name: Lactate w/ 2H reflex if indic. cp 11/10 00:20 Order name: Blood Culture Adult (2) cp 11/10 00:20 Order name: Influenza Screen (a \T\ B) cp 11/10 00:20 Order name: SARS RAPID cp 11/10 01:23 Order name: CBC with Automated Diff EDMS 11/10 01:23 Order name: Lipid Profile EDMS 11/10 01:23 Order name: Lipid Profile EDMS 11/10 01:23 Order name: Troponin High Sensitivity EDMS 11/10 01:23 Order name: Troponin High Sensitivity EDMS 11/10 01:23 Order name: Troponin High Sensitivity EDMS 11/10 01:23 Order name: Troponin High Sensitivity EDMS 11/10 01:23 Order name: Troponin High Sensitivity EDMS 11/09 21:29 Order name: XRAY Chest (1 view); Complete Time: 23:28 cp 11/09 21:29 Order name: CT Head Brain wo Cont cp 11/09 23:00 Order name: Thorax Wo Con EDMS 11/10 01:23 Order name: Echo with Doppler EDMS 11/09 21:29 Order name: EKG; Complete Time: 21:29 cp 11/10 01:23 Order name: CONS Physician Consult EDMS 11/09 21:29 Order name: Cardiac monitoring; Complete Time: 21:48 cp 11/09 21:29 Order name: EKG - Nurse/Tech; Complete Time: 21:49 cp 11/09 21:29 Order name: IV Saline Lock; Complete Time: 21:49 cp 11/09 21:29 Order name: Labs collected and sent; Complete Time: 21:49 cp 11/09 21:29 Order name: O2 Per Protocol; Complete Time: 21:49 cp 11/09 21:29 Order name: O2 Sat Monitoring; Complete Time: 21:49 cp EC/21 21:17 Rate is 105 beats/min. Rhythm is regular. AR interval is normal. QRS interval is cp normal. QT interval is normal. T waves are Inverted in lead aVR. Interpreted by me. Reviewed by me. Administered Medications: 21:30 CANCELLED (Physician Discretion): [id number] mg IVP once; give over 2 minutes cp 21:49 Drug: Aspirin PO Chewable Tablet 324 mg PO once; 81 mg tablets x 4 Route: PO; al5 22:57 Follow up: Response: No adverse reaction al5 11/10 02:46 Follow up: Response: No adverse reaction kd4 11/09 21:49 Drug: morphine IVP or IV 4 mg IVP once over 4 mins Route: IVP; Infused Over: 4 mins; al5 Site: right antecubital; 22:56 Follow up: Response: No adverse reaction al5 23:24 Follow up: Response: No adverse reaction; Marked relief of symptoms al5 11/10 02:45 Follow up: Response: No adverse reaction kd4 11/09 23:24 Not Given (Other Intervention Used): morphineor iv 4 mg IVP once over 4 mins al5 11/10 01:04 Drug: Rocephin IV 1 grams IV at calculated rate once; Given slow IV push per pharmacy kd4 instructions Route: IV; Rate: calculated rate; Site: right femoral; 02:46 Follow up: Response: No adverse reaction; IV Status: Completed infusion kd4 01:04 Drug: Zithromax IVPB 500 mg IVPB once over 1 hrs; mix in 250 mL NS Route: IVPB; Infused kd4 Over: 1 hrs; Site: right forearm; 02:45 Follow up: Response: No adverse reaction kd4 02:46 Follow up: IV Status: Completed infusion kd4 Disposition: 11/11 00:22 Co-signature as Attending Physician, Oz Mercedes MD I agree with the assessment sp4 and plan of care. I reviewed the patient's care provided by the Advanced Practice Provider and agree with the diagnosis and treatment plan. Disposition Summary: 11/11/23 00:36 Hospitalization Ordered Notes: Hospitalization Status: Inpatient Admission cp Provider: Yaya Diaz cp Location: Telemetry/[facility] (Inpatient) cp Condition: Stable cp Problem: new cp Symptoms: have improved cp Bed/Room Type: Standard cp Room Assignment: 206(11/11/23 01:34) [facility] Diagnosis - Chest pain, unspecified cp - Unspecified injury of unspecified kidney, initial encounter cp - Anemia in other chronic diseases classified elsewhere cp - Chronic kidney disease, unspecified cp Forms: - Medication Reconciliation Form cp - SBAR form cp - Leadership Thank You Letter cp Signatures: Dispatcher [employer] EDMS Miguelangel Trammell PA PA cp Ludivina Toth RN RN vc1 Oz Mercedes MD MD sp4 Ania Pinedo [facility] Nikolay Holloway RN RN kd4 Kaleigh Ronquillo RN RN al5 Corrections: (The following items were deleted from the chart) 11/09 21:29 21:29 BASIC METABOLIC PANEL+C.LAB.BRZ ordered. EDMS EDMS 21: 21:29 CBC+H.LAB.BRZ ordered. EDMS EDMS 21:29 21:29 HEPATIC FUNCTION+C.LAB.BRZ ordered. EDMS EDMS 21: 21:29 MAGNESIUM+C.LAB.BRZ ordered. EDMS EDMS 21:29 21:29 PROBNP+C.LAB.BRZ ordered. EDMS EDMS 21:29 PROTIME (+INR)+COAG.LAB.BRZ ordered. EDMS EDMS 21:29 Troponin High Sensitivity+C.LAB.BRZ ordered. EDMS EDMS : 21:29 Urinalysis W/Microscopic+U.LAB.BRZ ordered. EDMS EDMS : 21:29 Furosemide IVP 20 mg IVP once; give over 2 minutes ordered. cp cp 23:00 21:29 Chest For PE Angio+CT.RAD.BRZ ordered. EDMS EDMS 11/10 00:20 00:20 LACTATE+C.LAB.BRZ ordered. EDMS EDMS 00: 00:20 BLOOD CULTURE*+BA.LAB.BRZ ordered. EDMS EDMS 00:20 00:20 Influenza Screen (A \T\ B)+BA.LAB.BRZ ordered. EDMS EDMS 00:20 00:20 SARS-COV-2 Antigen Rapid+I.LAB.BRZ ordered. EDMS EDMS 00:37 00:36 Headache cp cp 01:34 00:36 cp kmf
--- NOTE | 2023-11-11 00:37 | ER ---
Nurse's Notes [facility] Name: Iam Nelson Age: 78 yrs Sex: Male : 1945 Arrival Date: 11/10/2023 Time: 20:58 Bed 3 Private MD: Diagnosis: Chest pain, unspecified;Unspecified injury of unspecified kidney, initial encounter;Anemia in other chronic diseases classified elsewhere;Chronic kidney disease, unspecified Presentation: 11/09 21:15 Chief complaint: Patient's son or daughter states: Head pressure and chest pain times 1 vc1 week. Coronavirus screen: Client denies travel out of the [place] in the last 14 days. At this time, the client does not indicate any symptoms associated with coronavirus-19. Ebola Screen: Patient negative for fever greater than or equal to 101.5 degrees Fahrenheit, and additional compatible Ebola Virus Disease symptoms Patient denies exposure to infectious person. Patient denies travel to an Ebola-affected area in the 21 days before illness onset. No symptoms or risks identified at this time. Initial Sepsis Screen: Does the patient meet any 2 criteria? No. Patient's initial sepsis screen is negative. Does the patient have a suspected source of infection? No. Patient's initial sepsis screen is negative. Risk Assessment: Do you want to hurt yourself or someone else? Patient reports no desire to harm self or others. Onset of symptoms is unknown. 21:15 Method Of Arrival: Ambulatory vc1 21:15 Acuity: DORA 3 vc1 Triage Assessment: 21:20 General: Appears in no apparent distress. uncomfortable, Behavior is calm, cooperative, vc1 appropriate for age. Pain: Complains of pain in chest Pain Quality of pain is described as pressure, sharp, Pain began 1 week ago Also complains of no other associated symptoms. Neuro: Level of Consciousness is awake, alert, obeys commands, Oriented to person, place, time, situation, Appropriate for age Reports head pressure. Cardiovascular: Reports chest pain, Capillary refill < 3 seconds Patient's skin is warm and dry. Chest pain is described as mild, began 1 week. Respiratory: Airway is patent Respiratory effort is even, unlabored, Respiratory pattern is regular, symmetrical. GI: No deficits noted. No signs and/or symptoms were reported involving the gastrointestinal system. Derm: Skin is intact, is healthy with good turgor, Skin is dry, Skin is normal, Skin temperature is warm. 11/10 02:48 Headache History: Other DENIED CURRENT PAIN. kd4 Historical: - Allergies: 11/09 21:21 No Known Allergies; vc1 - Home Meds: 21:16 Nitroglycerin SL [Active]; amlodipine 10 mg tablet daily [Active]; losartan 25 mg oral vc1 tablet [Active]; pravastatin 40 mg oral tablet daily [Active]; allopurinol 100 mg Oral tablet daily [Active]; losartan 25 mg Oral tab 1 tab once daily for Hypertension [Active]; metoprolol tartrate 50 mg oral tablet daily [Active]; - PMHx: 21:16 Cataracts; Hyperlipidemia; Hypertension; inflammed prostate; vc1 - PSHx: 21:16 None; vc1 - Immunization history:: Client reports receiving the 2nd dose of the Covid vaccine, Flu vaccine is not up to date. - Infectious Disease History:: Denies. - Social history:: Smoking status: Patient denies any tobacco usage or history of. Screenin:19 Abuse screen: Denies threats or abuse. Nutritional screening: No deficits noted. vc1 Tuberculosis screening: No symptoms or risk factors identified. 21:30 [facility] ED Fall Risk Assessment (Adult) History of falling in the last 3 months, al5 including since admission No falls in past 3 months (0 pts) Confusion or Disorientation No (0 pts) Intoxicated or Sedated No (0 pts) Impaired Gait Yes (1 pt) Mobility Assist Device Used No (0 pt) Altered Elimination No (0 pt) Score/Fall Risk Level 0 - 2 = Low Risk. Assessment: 21:30 General: Appears in no apparent distress. Behavior is calm, cooperative. Pain:. Pain: al5 Complains of pain in head and chest Pain currently is 10 out of 10 on a pain scale. Pain began 1-2 weeks Is continuous. Neuro:. Neuro: Level of Consciousness is awake, alert, obeys commands, Oriented to person, place, time, situation, Gait is steady, Speech is normal. Cardiovascular: Reports chest pain, headache Patient's skin is warm and dry. Rhythm is sinus rhythm Chest pain is described as severe. Respiratory: Airway is patent Trachea midline Respiratory effort is even, unlabored, Respiratory pattern is regular, symmetrical. Derm: Skin is intact. 23:06 Reassessment: Patient and/or family updated on plan of care and expected duration. Pain al5 level reassessed. Patient is alert, oriented x 3, equal unlabored respirations, skin warm/dry/pink. Pain: Pain currently is 6 out of 10 on a pain scale. 11/10 00:45 Reassessment: blood culture drawn, lactate collected before abt initiation. kd4 Vital Signs: 11/09 21:15 BP 179 / 65; Pulse 101; Resp 16; Temp 97.7; Pulse Ox 96% ; vc1 21:26 BP 172 / 69; Pulse 103; Resp 18; Pulse Ox 100% on R/A; Pain 10/10; al5 21:50 BP 156 / 67; Pulse 95; Resp 16; Pulse Ox 99% on R/A; al5 22:46 BP 152 / 69; Pulse 97; Resp 17; Pulse Ox 98% on R/A; Pain 6/10; al5 23:06 BP 155 / 67; Pulse 90; Resp 17; Pulse Ox 98% on R/A; Pain 6/10; al5 23:25 BP 152 / 68; Pulse 87; Resp 17; Pulse Ox 98% on R/A; Pain 0/10; al5 11/10 00:45 BP 167 / 64; Pulse 94; Resp 18; Temp 97.7; Pulse Ox 97% on R/A; Pain 0/10; kd4 01:38 BP 129 / 59; Pulse 76; Resp 18; Temp 97.8; Pulse Ox 96% on R/A; Pain 0/10; kd4 02:12 Weight 63.5 kg; Height 5 ft. 5 in. ; jw7 02:37 BP 129 / 89; Pulse 78; Resp 16; Pulse Ox 97% on R/A; Pain 0/10; kd4 02:12 Body Mass Index 23.30 (63.50 kg, 165.1 cm) jw7 21:26 Pain Scale: Adult al5 22:46 Pain Scale: Adult al5 23:06 Pain Scale: Adult al5 23:25 Pain Scale: Adult al5 11/10 00:45 Pain Scale: Adult kd4 01:38 Pain Scale: Adult kd4 02:37 Pain Scale: Adult kd4 ED Course: 11/09 21:03 Patient arrived in ED. gm2 21:05 Page, Miguelangel, PA is PHCP. cp 21:05 Oz Mercedes MD is Attending Physician. cp 21:16 Triage completed. vc1 21:19 Arm band placed on left wrist. vc1 21:19 Patient has correct armband on for positive identification. Bed in low position. Call vc1 light in reach. groundwater monitoring technician on. Pulse ox on. NIBP on. 21:46 XRAY Chest (1 view) In Process Unspecified. EDMS 21:48 Kaleigh Ronquillo, JEREMY is Primary Nurse. al5 21:48 Inserted saline lock: 20 gauge in right antecubital area, using aseptic technique. al5 21:48 No provider procedures requiring assistance completed. al5 21:49 Basic Metabolic Panel Sent. al5 21:49 CBC with Diff Sent. al5 21:49 LFT's Sent. al5 21:49 Magnesium Sent. al5 21:49 NT PRO-BNP Sent. al5 21:49 PT-INR Sent. al5 21:49 Troponin HS Sent. al5 22:53 Urinalysis W/Microscopic Sent. al5 23:00 CT Head Brain wo Cont In Process Unspecified. EDMS 23:00 Thorax Wo Con In Process Unspecified. EDMS 11/10 00:35 Yaya Diaz MD is Hospitalizing Provider. cp 00:35 First set of blood cultures drawn by me. oe 00:52 Second set of blood cultures drawn by me. oe 01:04 Inserted saline lock: 20 gauge in left forearm, using aseptic technique. Blood kd4 collected. 01:06 Lactate w/ 2H reflex if indic. Sent. oe 02:11 CBC with Automated Diff Sent. kd4 02:11 Troponin High Sensitivity Sent. kd4 02:48 Provided Education on: LIZZIE FOR ADMISSION. kd4 02:48 IV is patent, is intact, kd4 Administered Medications: 11/09 21:30 CANCELLED (Physician Discretion): [id number] mg IVP once; give over 2 minutes cp 21:49 Drug: Aspirin PO Chewable Tablet 324 mg PO once; 81 mg tablets x 4 Route: PO; al5 22:57 Follow up: Response: No adverse reaction al5 11/10 02:46 Follow up: Response: No adverse reaction kd4 11/09 21:49 Drug: morphine IVP or IV 4 mg IVP once over 4 mins Route: IVP; Infused Over: 4 mins; al5 Site: right antecubital; 22:56 Follow up: Response: No adverse reaction al5 23:24 Follow up: Response: No adverse reaction; Marked relief of symptoms al5 11/10 02:45 Follow up: Response: No adverse reaction kd4 11/09 23:24 Not Given (Other Intervention Used): morphineor iv 4 mg IVP once over 4 mins al5 11/10 01:04 Drug: Rocephin IV 1 grams IV at calculated rate once; Given slow IV push per pharmacy kd4 instructions Route: IV; Rate: calculated rate; Site: right femoral; 02:46 Follow up: Response: No adverse reaction; IV Status: Completed infusion kd4 01:04 Drug: Zithromax IVPB 500 mg IVPB once over 1 hrs; mix in 250 mL NS Route: IVPB; Infused kd4 Over: 1 hrs; Site: right forearm; 02:45 Follow up: Response: No adverse reaction kd4 02:46 Follow up: IV Status: Completed infusion kd4 Medication: 11/09 21:19 VIS not applicable for this client. vc1 Outcome: 11/10 00:36 Decision to Hospitalize by Provider. cp 02:47 Admitted to Tele accompanied by tech, family with patient, via stretcher, room 206, kd4 Report called to [facility] ND REPORT SENT TO UNIT. RN NOTIFIED. 02:47 Condition: stable 02:47 Instructed on the need for admit, 02:49 Patient left the ED. kd4 Signatures: Dispatcher [employer] EDMS Miguelangel Trammell PA PA cp Nate Arreaga Vanessa RN RN vc1 Carisa Duarte RN RN jw7 Aida Owusu 2 Nikolay Holloway RN RN kd4 Kaleigh Ronquillo RN RN al5
[2023-11-11] MEDS ORDERED: NITROGLYCERIN 0.4 MG/TAB SL PRN (01:16)
[2023-11-11] MEDS ORDERED: ACETAMINOPHEN 500 MG TAB PO PRN (01:16)
[2023-11-11] MEDS ORDERED: MORPHINE 4 MG/ML SYR IV PRN (01:16)
--- NOTE | 2023-11-11 01:28 | P.HP ---
Certification for Inpatient With expected LOS: >2 Midnights Practitioner: I am a practitioner with admitting privileges, knowledge of patient current condition, hospital course, and medical plan of care. Services: Services provided to patient in accordance with Admission requirements found in Title 42 Section 412.3 of the Code of Federal Regulations Patient History Date of Service: 11/11/23 Reason for admission: Chest pain History of Present Illness: Patient is 78 years of age has been complaining of intermittent anterior chest pain for the past 2 weeks duration 4 to 5 hours become more frequent recently and is lasting around 15 minutes no prior history of coronary artery disease history of hypertension chronic renal failure patient does not smoke no evidence of diabetes denies any shortness of breath Allergies No Known Drug Allergies Allergy (Verified 01/09/19 20:46) Unknown Home Medications: Amlodipine [Norvasc*] 10 mg PO DAILY 07/21/17 Budesonide/Glycopyr/Formoterol [Breztri Aerosphere Inhaler] 2 puff IH BID #1 08/04/23 Finasteride [Proscar*] 1 tab PO DAILY 08/04/23 Furosemide [Lasix] 20 mg PO DAILY #30 tab 08/04/23 Hydrocodone 5/APAP 325 [[place] 5/325] 1 tab PO Q6H PRN #30 tab 08/04/23 Metoprolol Tartrate [Lopressor*] 50 mg PO BID #60 tab 08/04/23 Pravastatin Sodium 1 tab PO DAILY 08/04/23 predniSONE [Deltasone] 20 mg PO DAILY #5 tab 08/04/23 - Past Medical/Surgical History Diabetic: No -: HTN -: Hyperlipidemia -: BPH -: Cataracts -: GERD -: 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 Past Surgical History: Patient denies surgical history Psychosocial/ Personal History: Patient is - Family History Mother -: Cancer Notes: tumor - Social History Smoking Status: Never smoker Alcohol use: No CD- Drugs: No Caffeine use: Yes Review of Systems 10-point ROS is otherwise unremarkable Physical Examination - Vital Signs Temperature: 97.7 F Blood Pressure: 179/65 Pulse: 101 Respirations: 16 Pulse Ox (%): 96 - Physical Exam General: Alert, In no apparent distress, Oriented x3 HEENT: Atraumatic Neck: Supple Respiratory: Clear to auscultation bilaterally Cardiovascular: Regular rate/rhythm, Normal S1 S2, Edema (2+ edema) Gastrointestinal: Normal bowel sounds, Soft and benign Musculoskeletal: No clubbing Integumentary: No rashes, No breakdown Neurological: Normal speech, Normal strength at 5/5 x4 extr - Studies Laboratory Data (last 24 hrs) 11/10/23 11/10/23 11/10/23 21:34 21:34 21:34 WBC 6.50 Hgb 7.6 L Hct 22.6 L Plt Count 246 PT 10.4 INR 0.94 Sodium 138 Potassium 4.5 BUN 56 H Creatinine 3.23 H Glucose 146 H Magnesium 2.8 H Total Bilirubin 0.4 AST 23 ALT 68 H Alkaline Phosphatase 104 Assessment and Plan - Problems (Diagnosis) (1) Unstable angina Current Visit: Yes Status: Acute Plan: Patient is 78 years of age admitted with unstable angina pain is becoming more frequent. Is that he has chronic renal failure EKG shows sinus tachycardia troponins are negative BNP is elevated admit start patient on heparin beta- blockers nitrates as needed cardiology consult chest x-ray is clear (2) Chronic renal failure Current Visit: Yes Status: Acute Plan: Patient has severe chronic renal failure will do ultrasound of the kidneys consult nephrology diuretics Qualifiers: Chronic kidney disease stage: stage 4 (severe) Qualified Code(s): N18.4 - Chronic kidney disease, stage 4 (severe) - Advance Directives Does patient have a Living Will: No Does patient have a Durable POA for Healthcare: Yes
[2023-11-11] MEDS: METOPROLOL TARTRATE 5 MG/5 ML INJ IV SCH (02:00)
[2023-11-11 02:23] VITALS: BMI 23.3
[2023-11-11 02:36] LABS: Absolute Eosinophils 0.1 K/uL (0-0.5); Absolute Lymphocytes (CBC) 0.8 K/uL (0.7-4.9); Absolute Monocytes 0.5 K/uL (0.1-1.3); Absolute Neutrophil 4.4 K/uL (1.8-8.0); Basophils % 0.8 % (0-1.3); Eosinophils % 1.5 % (0-4.4); Hematocrit 21.3 % (39.6-49.0); Hemoglobin 7.3 g/dL (13.6-17.9); Lymphocytes % 13.5 % (15.3-44.8); MCH 32.5 pg (27.0-35.0); MCHC 34.3 g/dL (32.0-36.0); MCV 94.7 fL (80-100); MPV 8.1 fL (7.6-11.3); Monocytes % 8.2 % (3.3-12.3); Nucleated Red Blood Cells % 0.2 % (0-0); Platelets 227 thou/uL (152-406); RBC Red Blood Cell Count 2.25 M/uL (4.33-5.43); Red Cell Distribution Width 14.2 % (12.1-15.2)
[2023-11-11 02:41] LABS: Troponin High Sensitivity 12.8 pg/mL (<58.9)
[2023-11-11 03:11] LABS: SARS-CoV-2 Antigen CONTROL BLUE LINE VIS/BG OK; SARS-CoV-2 Antigen Rapid Res Negative (Negative)
[2023-11-11] MEDS: HEPARIN/D5W 25,000 UNIT/500 ML BAG IV SCH (03:14)
[2023-11-11] MEDS: FUROSEMIDE 40 MG/4 ML VIAL IV SCH (03:19)
[2023-11-11] MEDS: METOPROLOL XL 25 MG TAB PO SCH (03:33)
[2023-11-11] MEDS: AMLODIPINE 5 MG TAB PO SCH (09:17)
[2023-11-11] MEDS: ASPIRIN 325 MG TAB PO SCH (09:17)
--- NOTE | 2023-11-11 10:33 | P.PN ---
Date of Service: 11/11/23 Pt seen and examined. Pt is a 78yo male with past medical history of HTN, HLD, BPH, GERD, cataract and CKD who presents with chest pain: A/P: Unstable Angina: Troponin is 12.4 -> 12.8. Will trend troponin Q6h. Consulted Cardiology. Elevated BNP: BNP is 768. Will f/u Echo. Anemia of chronic disease: Hgb is 7.3. Will monitor H/H. Will transfuse 1 unit of blood. HLD: Statin Htn: Will optimize BP regimen. CKD stage 3: Cr is 3.23. Will avoid nephrotoxins and monitor renal function. BPH; Continue flomax GERD: protonix Code: full
[2023-11-11] MEDS: NA CHLORIDE 0.9% 250 ML ONE (13:29)
[2023-11-11 21:13] LABS: Absolute Eosinophils 0.2 K/uL (0-0.5); Absolute Lymphocytes (CBC) 0.9 K/uL (0.7-4.9); Absolute Monocytes 0.6 K/uL (0.1-1.3); Absolute Neutrophil 3.7 K/uL (1.8-8.0); Basophils % 0.7 % (0-1.3); Hematocrit 24.7 % (39.6-49.0); Hemoglobin 8.4 g/dL (13.6-17.9); Lymphocytes % 16.5 % (15.3-44.8); MCH 31.7 pg (27.0-35.0); MCHC 34.2 g/dL (32.0-36.0); MCV 92.8 fL (80-100); MPV 7.7 fL (7.6-11.3); Monocytes % 11.7 % (3.3-12.3); Neutrophils % 68.1 % (41.7-73.7); Nucleated Red Blood Cells % 0.1 % (0-0); Platelets 211 thou/uL (152-406); RBC Red Blood Cell Count 2.66 M/uL (4.33-5.43); Red Cell Distribution Width 14.8 % (12.1-15.2)
--- NOTE | 2023-11-12 08:32 | P.PN ---
Subjective Date of Service: 11/12/23 Chief Complaint: Chest pain Pt is resting comfortably in bed. He denies any chest pain. troponin is negative x4. Waiting for cardiology eval. No other complaints. Review of Systems General: Unremarkable Eyes: Unremarkable ENT: Unremarkable Respiratory: Unremarkable Cardiovascular: Unremarkable Gastrointestinal: Unremarkable Genitourinary: Unremarkable Musculoskeletal: Unremarkable Integumentary: Unremarkable Neurological: Unremarkable Lymphatics: Unremarkable Physical Examination - Vital Signs Temperature: 99.2 F Blood Pressure: 149/69 Pulse: 62 Respirations: 16 Pulse Ox (%): 94 - Physical Exam General: Alert, In no apparent distress, Oriented x3 HEENT: Atraumatic, Normocephalic, PERRLA Neck: Supple, 2+ carotid pulse no bruit, JVD not distended Respiratory: Clear to auscultation bilaterally, Normal air movement Cardiovascular: No edema, Normal pulses, Regular rate/rhythm, Normal S1 S2 Capillary refill: <2 Seconds Gastrointestinal: Normal bowel sounds, Soft and benign, Non-distended Musculoskeletal: No clubbing, No swelling Integumentary: No rashes, No breakdown Neurological: Normal gait, Normal speech, Normal strength at 5/5 x4 extr Lymphatics: No axilla or inguinal lymphadenopathy Assessment And Plan - Plan Unstable Angina: Troponin is 12.4 -> 12.8-> 13.6 -> 9.8. It is non-trending. Will trend troponin Q6h. Consulted Cardiology. Will keep pt NPO after midnight for NM stress test. Elevated BNP: BNP is 768. Will f/u Echo. Anemia of chronic disease: Hgb is 8.4 <- 7.3. Will monitor H/H. Will transfuse 1 unit of blood. HLD: Statin Htn: Will optimize BP regimen. CKD stage 3: Cr is 3.23. Will avoid nephrotoxins and monitor renal function. BPH; Continue flomax GERD: protonix Code: full
--- NOTE | 2023-11-12 13:31 | EKG ---
Test Date: 2023-11-10 Test Time: 21:11:02 Parking Lot Attendant: KIERAN MEASUREMENT RESULTS: Intervals: Rate: 105 MO: 178 QRSD: 88 QT: 360 QTc: 475 [place]: P: 72 MO: 178 QRS: -43 T: 71 INTERPRETIVE STATEMENTS: Sinus tachycardia Left axis deviation Abnormal ECG Compared to ECG 08/03/2023 00:43:14 Sinus rhythm no longer present Electronically Signed On 11-12-23 13:27:46 CDT by Kody Hurtado
[2023-11-12 14:06] LABS: Absolute Eosinophils 0.2 K/uL (0-0.5); Absolute Lymphocytes (CBC) 0.8 K/uL (0.7-4.9); Absolute Monocytes 0.5 K/uL (0.1-1.3); Absolute Neutrophil 3.9 K/uL (1.8-8.0); Basophils % 0.9 % (0-1.3); Eosinophils % 3.3 % (0-4.4); Hematocrit 28.4 % (39.6-49.0); Hemoglobin 9.6 g/dL (13.6-17.9); Lymphocytes % 15.5 % (15.3-44.8); MCH 31.1 pg (27.0-35.0); MCHC 33.6 g/dL (32.0-36.0); MCV 92.7 fL (80-100); MPV 7.6 fL (7.6-11.3); Monocytes % 9.7 % (3.3-12.3); Neutrophils % 70.6 % (41.7-73.7); Nucleated Red Blood Cells % 0.1 % (0-0); Platelets 239 thou/uL (152-406); RBC Red Blood Cell Count 3.07 M/uL (4.33-5.43)
[2023-11-12 14:23] LABS: Anion Gap 7.7 mEq/L (5.0-15.0); Potassium 4.7 mEq/L (3.5-5.1)
--- NOTE | 2023-11-12 18:38 | CON ---
Date of Consultation: 11/12/2023 Reason For Consultation: Chest pain. History Of Present Illness: This is a 78-year-old male with history of hypertension, dyslipidemia, a rashad reflux disease, presented with chest pain that started in the back of his neck and travel to his front part of his chest and is intermittent. Denies having any chest pain since arrival to the [facility], feeling well and no symptoms today. Past Medical History: As outlined above in the HPI. Medication: Refer reconciliation sheet for detailed list. Allergies: NO KNOWN DRUG ALLERGIES. Family History: No premature coronary disease. Social History: Does not smoke or drink. Does not use any drugs. Review of Systems: All systems reviewed are negative except as mentioned in HPI. Physical Examination: Vital Signs: Reviewed. Head and Neck: Pupils are equal, reactive to light. Intact eye movements. No JVD. No cervical lym phadenopathy. Neck: Supple. Thyroid is not enlarged. Lungs: Clear to auscultation bilaterally. No rhonchi, rales, or crackles. No accessory muscle use. Heart: Regular rate and rhythm. No extra sounds. Abdomen: Soft, nontender. Bowel sounds positive. No organomegaly. No masses or hernia. No rigidi ty or rebound. Extremities: No edema, clubbing, cyanosis. Intact pulses. Skin: No rash. No nodules. Neurologic: Alert, awake, oriented x3. No acute focal deficits appreciated. Investigations: Cardiac enzymes x4 negative. BUN 56, creatinine 3.23, which is way above his baseli ne. Assessment/recommendation: 1.Chest pain, atypical to some point. Cardiac enzymes are negative. He will need an exercise nucle ar stress test and echo to further evaluate. He has been stable, so this can be done as an outpatien t unless he ends up staying in the hospital for other reasons, then it can be performed early next we ek. 2.Acute on chronic renal failure. Recommend to consult Nephrology. This is an acute finding. His creatinine was close to normal last year. 3.Hypertension. Blood pressure is controlled. Continue current management. SR/MODL Voice ID: [id number] Report ID: [id number]
[2023-11-13 03:43] LABS: Absolute Basophils 0.1 K/uL (0-0.5); Absolute Eosinophils 0.2 K/uL (0-0.5); Absolute Lymphocytes (CBC) 0.9 K/uL (0.7-4.9); Absolute Monocytes 0.7 K/uL (0.1-1.3); Absolute Neutrophil 4.1 K/uL (1.8-8.0); Basophils % 1.1 % (0-1.3); Eosinophils % 3.7 % (0-4.4); Hematocrit 27.6 % (39.6-49.0); Hemoglobin 9.3 g/dL (13.6-17.9); Lymphocytes % 15.6 % (15.3-44.8); MCH 31.3 pg (27.0-35.0); MCHC 33.7 g/dL (32.0-36.0); MCV 92.9 fL (80-100); MPV 8.2 fL (7.6-11.3); Monocytes % 11.7 % (3.3-12.3); Neutrophils % 67.9 % (41.7-73.7); Nucleated Red Blood Cells % 0.2 % (0-0); Platelets 185 thou/uL (152-406); RBC Red Blood Cell Count 2.97 M/uL (4.33-5.43); Red Cell Distribution Width 14.6 % (12.1-15.2)
[2023-11-13 04:04] LABS: Anion Gap 11.7 mEq/L (5.0-15.0); Potassium 4.7 mEq/L (3.5-5.1)
--- NOTE | 2023-11-13 06:52 | P.PN ---
Date of Service: 11/13/23 Subjective Irish-speaking, admitted for chest pain Stress test, ordered for today Review of Systems Per HPI Physical Examination -- Vital Signs reviewed - Physical Exam General: Alert, In no apparent distress, HEENT: PERRLA Neck: Supple, 2+ carotid pulse no bruit, JVD not distended Respiratory: Clear to auscultation bilaterally, Normal air movement, Cardiovascular: Normal pulses, Regular rate/rhythm, no edema Capillary refill: <2 Seconds Gastrointestinal: Soft and benign, Non-distended Musculoskeletal:(Generalized weakness) Integumentary: No breakdown Neurological: Normal speech, Normal strength at 5/5 x4 extr Assessment And Plan Unstable Angina: Serial troponins negative Troponin is 12.4 -> 12.8-> 13.6 -> 9.8. It is non-trending. Will trend troponin Q6h. Consulted Cardiology. Will keep pt NPO after midnight for NM stress test. Elevated BNP: BNP is 768. Will f/u Echo. 08/04/23 COMMENTS: 1. NORMAL LEFT VENTRICULAR EJECTION FRACTION 60-65% WITH NORMAL WALL MOTION 2. MILD CONCENTRIC LEFT VENTRICULAR HYPERTROPHY 3. GRADE I DIASTOLIC DYSFUNCTION 4. MILD TRICUSPID REGURGITATION Anemia of chronic disease: Hgb is 8.4 <- 7.3. Will monitor H/H. Will transfuse 1 unit of blood. HLD: Resume home meds statin Htn: Resume home meds Will optimize BP regimen. CKD stage 3: Cr is 3.23. Will avoid nephrotoxins and monitor renal function. ollowed by Dr. Quesada BPH; Resume home flomax GERD: protonix Code: full
[2023-11-13] MEDS ORDERED: REGADENOSON 0.4 MG/5 ML SYR IV ONE (09:12)
[2023-11-13] MEDS ORDERED: NA CHLORIDE 0.9% 500 ML ONE (10:09)
[2023-11-13] MEDS: NA CHLORIDE 0.9% 250 ML IV PRN (10:12)
--- NOTE | 2023-11-13 11:22 | RAD REPORT ---
EXAM DESCRIPTION: CT - Head Brain Wo Cont - 11/13/2023 10:31 am CLINICAL HISTORY: fainting COMPARISON: Head Brain Wo Cont dated 11/10/2023; Head Brain Wo Cont dated 03/09/2021 TECHNIQUE: Noncontrast head CT images were obtained without IV contrast. Multiplanar reformats were generated and reviewed. All CT scans are performed using dose optimization technique as appropriate and may include automated exposure control or mA/KV adjustment according to patient size. FINDINGS: No intracranial hemorrhage, mass, or edema. Midline structures are unremarkable. Normal ventricular caliber for age. Huber-white matter differentiation is preserved, without evidence of acute infarct. No abnormal extra- axial fluid collections. Mastoid air cells and visualized portions of the paranasal sinuses are clear. No acute bony findings. IMPRESSION: No evidence of an acute intracranial process.
--- NOTE | 2023-11-13 13:02 | EKG ---
Test Date: 2023-11-13 Test Time: 09:59:52 Rigging Helper: SAMIA MEASUREMENT RESULTS: Intervals: Rate: 59 ME: 168 QRSD: 78 QT: 438 QTc: 433 [place]: P: 69 ME: 168 QRS: -64 T: 86 INTERPRETIVE STATEMENTS: Sinus bradycardia Left axis deviation Abnormal ECG Compared to ECG 11/10/2023 21:11:29 Sinus tachycardia no longer present Electronically Signed On 11-13-23 13:01:23 CDT by Kody Hurtado
--- NOTE | 2023-11-13 13:09 | EKG ---
Test Date: 2023-11-10 Test Time: 21:11:29 Peeler Operator: KIERAN MEASUREMENT RESULTS: Intervals: Rate: 104 IN: 192 QRSD: 88 QT: 334 QTc: 439 [place]: P: 76 IN: 192 QRS: -56 T: 76 INTERPRETIVE STATEMENTS: Sinus tachycardia Left axis deviation Abnormal ECG Compared to ECG 11/10/2023 21:11:02 No significant changes Electronically Signed On 11-13-23 13:04:02 CDT by Kody Hurtado
--- NOTE | 2023-11-13 13:19 | RAD REPORT ---
EXAM DESCRIPTION: NM - Rest Stress Cardiac Imaging - 11/13/2023 11:02 am CLINICAL HISTORY: Chest pain Chest pain. COMPARISON: Rest Stress Cardiac Imaging dated 01/18/2016 TECHNIQUE: The patient was administered approximately 10.5 mCi of Tc 99m Sestamibi prior to resting SPECT imaging of the heart. The patient was then administered approximately 31.2 mCi of Tc 99m Sestam ibi following exercise or pharmacologic stress. Multiplanar SPECT images were reviewed. FINDINGS: No stress induced ischemic defect is seen to suggest stress induced ischemia. No fixed def ect is seen to suggest hibernating myocardium or scarred myocardium. Attenuation of uptake along the inferior wall more so on the rest images appears to be artifactual in nature. The end diastolic volume is 97 ml, the end systolic volume is 33 ml, and the ejection fraction is 66 %. IMPRESSION: No evidence of stress induced ischemia.
--- NOTE | 2023-11-13 14:25 | ECHO ---
HEIGHT: 5 ft 5 in WEIGHT: 140 lb 0 oz DATE OF STUDY: 11/13/[address]: Yaya Diaz MD 2-DIMENSIONAL: YES M.MODE: YES DOPPLER: YES COLOR FLOW: YES TDS: PORTABLE: YES DEFINITY: BUBBLE STUDY: DIAGNOSIS: CHEST PAIN CARDIAC HISTORY: CATHERIZATION: NO SURGERY: NO PROSTHETIC VALVE: NO PACEMAKER: NO MEASUREMENTS (cm) DIASTOLIC (NORMALS) SYSTOLIC (NORMALS) IVSd 1.1 (0.6-1.2) LA Diam 2.4 (1.9-4.0) LVEF 60-65% LVIDd 4.1 (3.5-5.7) LVIDs 2.2 (2.0-3.5) %FS 45% LVPWd 1.1 (0.6-1.2) Ao Diam 2.8 (2.0-3.7) 2 DIMENSIONAL ASSESSMENT: RIGHT ATRIUM: NORMAL LEFT ATRIUM: NORMAL RIGHT VENTRICLE: NORMAL LEFT VENTRICLE: MILD LEFT VENTRICULAR HYPERTROPHY TRICUSPID VALVE: NORMAL MITRAL VALVE: MILD MITRAL REGURGITATION PULMONIC VALVE: NORMAL AORTIC VALVE: THICKENED AORTIC VALVE, NO AORTIC STENOSIS PERICARDIAL EFFUSION: NONE AORTIC ROOT: NORMAL LEFT VENTRICULAR WALL MOTION: NORMAL DOPPLER/COLOR FLOW: SEE BELOW COMMENTS: 1. NORMAL LEFT VENTRICULAR EJECTION FRACTION 60-65% WITH NORMAL WALL MOTION 2. GRADE I DIASTOLIC DYSFUNCTION 3. MILD CONCENTRIC LEFT VENTRICULAR HYPERTROPHY 4. MILD MITRAL REGURGITATION TECHNOLOGIST: PATRICIA FIELDS
--- NOTE | 2023-11-13 14:35 | P.DS ---
Admission Date: 11/11/23 Discharge Date: 11/14/23 Disposition: ROUTINE DISCHARGE Discharge Condition: GOOD Reason for Admission: Chest pain Brief History of Present Illness: Patient is 78 years of age has been complaining of intermittent anterior chest pain for the past 2 weeks duration 4 to 5 hours become more frequent recently and is lasting around 15 minutes no prior history of coronary artery disease history of hypertension chronic renal failure patient does not smoke no evidence of diabetes denies any shortness of breath - Physical Exam General: Alert, In no apparent distress, Oriented x3 HEENT: Atraumatic Neck: Supple Respiratory: Clear to auscultation bilaterally Cardiovascular: Regular rate/rhythm, Normal S1 S2, Edema (2+ edema) Gastrointestinal: Normal bowel sounds, Soft and benign Musculoskeletal: No clubbing Integumentary: No rashes, No breakdown Neurological: Normal speech, Normal strength at 5/5 x4 extr Hospital Course: 78 year old male presented with chest pain. He was evaluated by cardiology, was noted to have atypical chest pain. Stress test was negative. He is tolerationg diet, can discharge home, follow up with cardiology after discharge. follow up with cardiology after discharge. Rad/Lab/Micro: atypical chest pain 11/12 Stress test was negative. Sinus bradycardia rate 59 serial troponon negative, Troponin is 12.4 -> 12.8-> 13.6 -> 9.8. CKD stage 3 microcytic anemia syncopal episode, CT head IMPRESSION: No evidence of an acute intracranial process. carotid doppler, IMPRESSION: No significant abnormality displayed Continue home medicines as previously prescribed GOAL: Clear understanding of disease process INSTRUCTIONS: Physician Discharge Instructions: -Follow-up with PCP in 1 to 2 weeks -Please call Dr. Espinoza at [phone] if any questions regarding hospital stay -Please call nursing station at [phone] if any nursing or medication questions -Return to the emergency room if symptoms worsen Diet: ADA, low sodium Activity: Fall precautions Vital Signs/Physical Exam: Temp Pulse Resp BP Pulse Ox 96.8 F 62 16 134/63 100 11/13/23 12:00 11/13/23 12:00 11/13/23 12:00 11/13/23 12:00 11/13/23 12:00 Laboratory Data at Discharge: WBC 6.00 thou/uL (4.3-10.9) 11/13/23 03:07 Hgb 9.3 g/dL (13.6-17.9) L 11/13/23 03:07 Hct 27.6 % (39.6-49.0) L 11/13/23 03:07 Plt Count 185 thou/uL (152-406) 11/13/23 03:07 PT 10.4 SECONDS (9.4-12.5) 11/10/23 21:34 INR 0.94 11/10/23 21:34 APTT Cancelled 11/11/23 18:00 Sodium 140 mEq/L (136-145) 11/13/23 03:07 Potassium 4.7 mEq/L (3.5-5.1) 11/13/23 03:07 BUN 66 mg/dL (7-18) H 11/13/23 03:07 Creatinine 2.84 mg/dL (0.70-1.30) H 11/13/23 03:07 Glucose 89 mg/dL (74-106) 11/13/23 03:07 Magnesium 2.8 mg/dL (1.6-2.4) H 11/10/23 21:34 Total Bilirubin 0.4 mg/dL (0.2-1.0) 11/10/23 21:34 AST 23 U/L (15-37) 11/10/23 21:34 ALT 68 U/L (16-61) H 11/10/23 21:34 Alkaline Phosphatase 104 U/L (45-117) 11/10/23 21:34 Triglycerides 55 mg/dL (<150) 11/11/23 02:02 Cholesterol 140 mg/dL (<200) 11/11/23 02:02 HDL Cholesterol 47 mg/dL (40-60) 11/11/23 02:02 Cholesterol/HDL Ratio 2.98 11/11/23 02:02 Home Medications: Amlodipine [Norvasc*] 10 mg PO BEDTIME 07/21/17 Pravastatin Sodium 1 tab PO BEDTIME 08/04/23 Amlodipine [Norvasc*] 10 mg PO BEDTIME tab 11/14/23 Aspirin Tab [Shubham Aspirin*] 325 mg PO DAILY tab 11/14/23 Furosemide [Lasix*] 20 mg PO DAILY 30 Days #30 tab 11/14/23 Nitroglycerin [Nitrostat*] 0.4 mg SL UD PRN 30 Days #1 bottle 11/14/23 Polyethyl Gly 3350 [Glycolax*] 17 gm PO DAILY PRN udbot 11/14/23 Potassium Oral Tab [Klor-Con 10 mEq Tab*] 10 meq PO DAILY 30 Days #30 tab 11/14/23 New Medications: Potassium Oral Tab [Klor-Con 10 mEq Tab*] 10 meq PO DAILY 30 Days #30 tab Furosemide [Lasix*] 20 mg PO DAILY 30 Days #30 tab Nitroglycerin [Nitrostat*] 0.4 mg SL UD PRN 30 Days #1 bottle PRN Reason: Pain Scale 2-4 (Mild) Physician Discharge Instructions: 78 year old male presented with chest pain. He was evaluated by cardiology, was noted to have atypical chest pain. Stress test was negative. He is tolerationg diet, can discharge home, follow up with cardiology after discharge. follow up with cardiology after discharge. Rad/Lab/Micro: atypical chest pain 11/12 Stress test was negative. Sinus bradycardia rate 59 serial troponon negative, Troponin is 12.4 -> 12.8-> 13.6 -> 9.8. CKD stage 3 microcytic anemia syncopal episode, CT head IMPRESSION: No evidence of an acute intracranial process. MPRESSION: No significant abnormality displayed Continue home medicines as previously prescribed GOAL: Clear understanding of disease process INSTRUCTIONS: Physician Discharge Instructions: -Follow-up with PCP in 1 to 2 weeks -Please call Dr. Espinoza at [phone] if any questions regarding hospital stay -Please call nursing station at [phone] if any nursing or medication ques tions -Return to the emergency room if symptoms worsen Diet: Renal Activity: Fall precautions Followup: Chrystal Walker MD [Primary Care Provider] - Kody Hurtado MD [ACTIVE - CAN ADMIT] - Reji Quesada DO [ACTIVE - CAN ADMIT] - Time spent managing pt's care (in minutes): 55
--- NOTE | 2023-11-13 14:37 | TREADPHA ---
DX: CHEST PAIN Date of Study: 11/13/2023 Ht: 5' 5 " Wt: 140 lb 0 oz Consulting Physician: KRISTA MEDICATIONS: TYLENOL, NORVASC, KENYA ASPIRIN, LASIX, HEPARIN, TOPROL XL, MORPHINE, NITROSTAT HISTORY: 78 YEAR OLD MALE WITH COMPLAINTS OF CHEST PAIN. HISTORY OF HYPERTENSION. PHYSICIAL EXAMINATION: RESTING B.P.: 151/67 RESTING H.R.: 69 RESTING EKG: NORMAL SINUS RHYTHM PROTOCOL: PHARMACOLOGIC EXERCISE TIME: 3:30 B.P. AT PEAK STRESS: 145/56 IMPRESSION: LEXISCAN INJECTED. CARDIOLITE INJECTED - SEE NUCLEAR MEDICINE REPORT. PATIENT COMPLIANTS OF SHORTNESS OF BREATH AND MILD CHEST PAIN. PATIENT COMPLIANTS OF WEAKNESS. NO VENTRICULAR TACHYCARDIA. NO SUPRAVENTRICULAR TACHYCARDIA. NO ARRYTHMIAS. NO ELECTROCARDIOGRAM CHANGES OF ISCHEMIA WITH LEXISCAN.
[2023-11-13] MEDS ORDERED: POLYETHYL GLY 3350 17 GM/DOSE PO PRN (14:48)
[2023-11-13] MEDS: POLYETHYL GLY 3350 17 GM/DOSE PO ONE (15:13)
--- NOTE | 2023-11-13 20:02 | RAD REPORT ---
EXAM DESCRIPTION: CT - Thorax Wo Con - 11/11/2023 6:40 am CLINICAL HISTORY: Chest pain TECHNIQUE: 5 mm axial images of the thorax were obtained 5 intravenous contrast. Coronal and sagitta l reformatted images were obtained. DOSE OPTIMIZATION: This facility uses dose optimization techniques as appropriate to perform exams, i ncluding at least one of the following techniques: 1. Automated exposure control. 2. Adjustment of the mA and/or kV according to patient size (this includes techniques or standardized protocols for targeted exams where dose is matched to the indication/reason for exam, i.e. extremiti es or head). 3. Use of iterative reconstructive technique. COMPARISON: 08/04/2023 FINDINGS: Lung Soto: There is a mild infiltrate within the right upper lobe anteriorly. There are small patchy infiltrates in the right lower lobe. There is a nodule in the right lower lobe abutting the major fissure measuring 0.6 cm, stable. Mediastinal Structures: The heart is normal in size. There is a small moderate-sized pericardial effusion, stable. There is evidence of coronary arterial disease. There is evidence of aortic valve calcifications. There is no evidence of aortic aneurysm. There is mild atherosclerotic disease about the thoracic aorta. There is no lymphadenopathy. Pleural Space: Normal. Axillae: Normal. Upper Abdomen: No significant abnormality. Bony Structures: There is moderately severe spondylosis throughout the thoracic spine. IMPRESSION: 1. Mild infiltrates within the right upper lobe and right lower lobe. 2. Stable nodule in the right lower lobe. 3. Small to moderate-sized pericardial effusion, stable. 4. Coronary arterial disease. 5. Aortic valve calcifications. Electronically signed by: Rodriguez Edwards MD 11/10/2023 11:41 PM CDT Due to temporary technical issues with the PACS/Fluency reporting system, reports are being signed by the in house radiologists without review as a courtesy to insure prompt reporting. The interpreting radiologist is fully responsible for the content of the report.
--- NOTE | 2023-11-13 20:07 | RAD REPORT ---
EXAM DESCRIPTION: CT - Head Brain Wo Cont - 11/11/2023 6:41 am CLINICAL HISTORY: Headache. TECHNIQUE: Contiguous axial CT images obtained through the brain without IV contrast. Coronal and sa gittal reformatted images were provided. This exam was performed according to our departmental dose-optimization program, which includes autom ated exposure control, adjustment of the mA and/or kV according to patient size and/or use of iterati ve reconstruction technique. COMPARISON: CT Head 04/09/2021. FINDINGS: Brain: Age related loss of brain volume, and chronic white matter ischemic changes. No foc al mass effect. Huber-white matter differentiation is within normal limits. No hemorrhage. Ventricles: No ventriculomegaly or midline shift. Extra-axial spaces: No extra-axial collection or hemorrhage. Paranasal sinuses and mastoid air cells: Well-aerated Bones: Unremarkable Soft tissues: Unremarkable IMPRESSION: No acute intracranial or extra-axial abnormality. Age related loss of brain volume, and chronic white matter ischemic changes. Electronically signed by: Donal Solano MD 11/10/2023 11:49 PM CDT RP Due to temporary technical issues with the PACS/Fluency reporting system, reports are being signed by the in house radiologists without review as a courtesy to insure prompt reporting. The interpreting radiologist is fully responsible for the content of the report.
[2023-11-14 10:24] VITALS: O2SAT 100
--- NOTE | 2023-11-14 14:48 | RAD REPORT ---
EXAM DESCRIPTION: USCarotid Artery Bilateral11/14/2023 2:02 pm CLINICAL HISTORY: syncope COMPARISON: None FINDINGS: The velocity of the right internal carotid artery equals 109 cm/sec. The right ICA/CCA rat io normal The velocity of the left internal carotid artery equals 99 cm/sec. The left ICA/CCA ratio normal No significant plaque visualized The vertebral arteries demonstrate antegrade flow IMPRESSION: No significant abnormality displayed NASCET criteria used. Mild 0-49% stenosis Moderate 50-69% stenosis Severe 70-99% stenosis
[2023-11-14] MEDS ORDERED: NITROGLYCERIN 0.4 MG/TAB SL PRN (15:01)
[2023-11-14 16:47] VITALS: BP 147/63; TEMP 97.8
[2023-11-14] MEDS ORDERED: ATORVASTATIN 10 MG TAB PO SCH (21:00)
[2023-11-14] MEDS ORDERED: AMLODIPINE 10 MG TAB PO SCH (21:00)
[2023-11-14] MEDS ORDERED: HOME MED 1 EA UNK (Pravastatin Sodium [Pravastatin Sodium] 40 MG Tablet) PO SCH (21:00)
[2023-11-15] MEDS ORDERED: POTASSIUM CL SA 10 MEQ TAB PO SCH (09:00)
[2023-11-15] MEDS ORDERED: FUROSEMIDE 20 MG TABLET PO SCH (09:00)
== END 2023-11-14 17:23 | disposition home or self-care (01) | DRG 313 ==
LOC: ER 20:58 → ERHOLD 11-11 01:16 → 2ND 11-11 02:31
PROVIDERS: ADMIT Internal Medicine Sleep Medicine; ATTEND Hospitalist
PROC: 30233N1 Transfusion of Nonautologous Red Blood Cells into Peripheral Vein, Percutaneous Approach (ICD-10-PCS; principal; 2023-11-11)
DX: R07.89 Other chest pain (principal); I25.110 Atherosclerotic heart disease of native coronary artery with unstable angina pectoris; N17.9 Acute kidney failure, unspecified; I12.9 Hypertensive chronic kidney disease with stage 1 through stage 4 chronic kidney disease, or unspecified chronic kidney disease; N18.30 Chronic kidney disease, stage 3 unspecified; D63.1 Anemia in chronic kidney disease; D63.8 Anemia in other chronic diseases classified elsewhere; D50.9 Iron deficiency anemia, unspecified; E78.5 Hyperlipidemia, unspecified; N40.0 Benign prostatic hyperplasia without lower urinary tract symptoms; K21.9 Gastro-esophageal reflux disease without esophagitis; Z79.82 Long term (current) use of aspirin; Z11.52 Encounter for screening for COVID-19; Z79.52 Long term (current) use of systemic steroids; Z79.899 Other long term (current) drug therapy
CPT/HCPCS: 36415; 70450; 71045; 71250; 78452; 80048; 80061; 80076; 81001; 82947; 83605; 83735; 83880; 84484; 85025; 85610; 85730; 86850; 86900; 86901; 86920; 87040; 87804; 87811; 93005; 93017; 93306; 93880; 99285; A9500; J0696; J1644; J1940; J2785; J7040; J7050; P9016

== ENCOUNTER 2024-02-07 16:31 | Inpatient (IN) | payer OTHER ==
--- OUTSIDE RECORDS SUMMARY | 2024-02-07 16:35 | XMS REPORT | Continuity of Care Document ---
Author Name Unknown Address [address] [facility] [address] [place] [address] [facility] hospital[facility] Address [address] [facility]. [address] [place] [address] Care Team Providers Care Hygiene Assistant Name Role Phone Chrystal Walker Attending Clinician Unavail able Harshil Dunne Attending Clinician Unavailable Payers Payer Name Policy Type Policy Number Effective Date Expirati on Date Source [facility] Dual Complete Choice (Regional PPO D-SNP) [id number] 2022 00:00:00 2023 00:00:00 [facility] [place]ICAID [place] [id number] [facility] MEDICAID MC [id number] [facility] Problems Condition Name Condition Details Condition Category Status Onset Date Resolution Date Last Treatment Date Treating Clinician Comments Source [id number] BRAEDEN (generaliz ed anxiety disorder) Problem [facility] Chronic kidney disease stage 3B (disorder) Stage 3b chronic kidney disease Problem [facility] [id number] Essential hypertensi on Problem [facility] [id number] Mixed hyperlipid emia Problem [facility] [id number] Non-season al allergic rhinitis due to other allergic trigger Problem [facility] [id number] Benign prostatic hyperplasi a, unspecifie d whether lower urinary tract symptoms present Problem [facility] [id number] Absolute glaucoma of both eyes Problem [facility] [id number] Atopic dermatitis , unspecifie d type Problem [facility] [id number] Anemia of chronic disease Problem [facility] [id number] CKD (chronic kidney disease) stage 4, GFR 15-29 ml/min Problem [facility] [id number] Chronic gout due to renal impairment without tophus, unspecifie d site Problem [facility] [id number] Bilateral hearing loss, unspecifie d hearing loss type Problem [facility] Social History Social Habit Start Date Stop Date Quantity Comments Source History of Tobacco Use [facility] Sex Assigned At [facility] Smoking Status Start Date Stop Date Source Never Smoker [facility] Medications Ordered Medication Name Filled Medication Name Start Date Stop Date Current Medication? Ordering Clinician Indication Dosage Frequency Signature (SIG) Comments Components Source Nitroglycer in 0.4 MG Nitroglycer in 0.4 MG 620 00:00: 00 No Nitroglyce rin 0.4 MG Lokelma 10 GM Lokelma 10 GM 2023-0 6-14 00:00: 00 No QD Lokelma 10 GM Ferrous Sulfate 325 (65 Fe) MG Ferrous Sulfate 325 (65 Fe) MG 6-14 00:00: 00 No 1{table t} Ferrous Sulfate 325 (65 Fe) MG Citalopram Hydrobromid e 10 MG Citalopram Hydrobromid e 10 MG 6-11 00:00: 00 No 1{table t} QD [...] 00 No 40mg [facility] Lumigan 0.01 % Lumigan 0.01 % [...] 1{table t_as_ne eded} Meclizine HCl 25 MG Klor-Con 10 10 MEQ Klor-Con 10 10 MEQ No 1{table t_with_ food} BID Klor-Con 10 10 MEQ Azopt 1 % Azopt 1 % No [...] Name Observation Time Observation Value Comments S juniorce height 2023-10-31 11:20:00 65 [in_i] Commo n [facility] weight 2023-10-31 11:20:00 136 [lb_av] Comm on [facility] temperature 2023-10-31 11:20:00 98.4 [degF] Com [facility] bmi 2023-10-31 11:20:00 22.63 kg/m2 Comm on [facility] oximetry 2023-10-31 11:20:00 98 % Commo n [facility] respiratory rate 2023-10-31 11:20:00 17 /min [facility] blood pressure systolic 2023-10-31 11:20:00 140 mm[Hg] [facility] blood pressure diastolic 2023-10-31 11:20:00 60 mm[Hg] [facility] height 2023-09-05 14:40:00 65 [in_i] Commo n [facility] weight 2023-09-05 14:40:00 131 [lb_av] Comm on [facility] temperature 2023-09-05 14:40:00 98.7 [degF] Com [facility] bmi 2023-09-05 14:40:00 21.8 kg/m2 Commo n [facility] oximetry 2023-09-05 14:40:00 100 % Commo n [facility] respiratory rate 2023-09-05 14:40:00 16 /min [facility] blood pressure systolic 2023-09-05 14:40:00 130 mm[Hg] Common [facility] blood pressure diastolic 2023-09-05 14:40:00 60 mm[Hg] [facility] height 2023-08-08 09:00:00 65 [in_i] Commo n [facility] weight 2023-08-08 09:00:00 135 [lb_av] Comm on [facility] temperature 2023-08-08 09:00:00 98.4 [degF] Com [facility] bmi 2023-08-08 09:00:00 22.46 kg/m2 Comm on [facility] oximetry 2023-08-08 09:00:00 100 % Commo n [facility] respiratory rate 2023-08-08 09:00:00 16 /min Common [facility] blood pressure systolic 2023-08-08 09:00:00 140 mm[Hg] [facility] blood pressure diastolic 2023-08-08 09:00:00 62 mm[Hg] Common [facility] height 2023-07-18 09:30:00 65 [in_i] Commo n [facility] weight 2023-07-18 09:30:00 131.7 [lb_av] Co mmon [facility] temperature 2023-07-18 09:30:00 98.3 [degF] Com [facility] bmi 2023-07-18 09:30:00 21.91 kg/m2 Comm on [facility] oximetry 2023-07-18 09:30:00 99 % Commo n [facility] respiratory rate 2023-07-18 09:30:00 17 /min Common [facility] blood pressure systolic 2023-07-18 09:30:00 139 mm[Hg] [facility] blood pressure diastolic 2023-07-18 09:30:00 67 mm[Hg] [facility] height 2023-07-18 09:30:00 65 [in_i] Commo n [facility] weight 2023-07-18 09:30:00 131.7 [lb_av] Co mmon [facility] temperature 2023-07-18 09:30:00 98.3 [degF] Com [facility] bmi 2023-07-18 09:30:00 21.91 kg/m2 Comm on [facility] oximetry 2023-07-18 09:30:00 99 % Commo n [facility] respiratory rate 2023-07-18 09:30:00 17 /min Common [facility] blood pressure systolic 2023-07-18 09:30:00 139 mm[Hg] [facility] blood pressure diastolic 2023-07-18 09:30:00 67 mm[Hg] Common [facility] height 2023-03-06 13:30:00 65 [in_i] Commo n [facility] weight 2023-03-06 13:30:00 137.8 [lb_av] Co mmon [facility] temperature 2023-03-06 13:30:00 98.9 [degF] Com [facility] bmi 2023-03-06 13:30:00 22.93 kg/m2 Comm on [facility] oximetry 2023-03-06 13:30:00 99 % Commo n [facility] blood pressure systolic 2023-03-06 13:30:00 130 mm[Hg] [facility] blood pressure diastolic 2023-03-06 13:30:00 60 mm[Hg] [facility] height 2023-01-18 11:00:00 65 [in_i] Commo n [facility] weight 2023-01-18 11:00:00 136.0 [lb_av] Co mmon [facility] temperature 2023-01-18 11:00:00 98.4 [degF] Com [facility] bmi 2023-01-18 11:00:00 22.63 kg/m2 Comm on [facility] oximetry 2023-01-18 11:00:00 98 % Commo n [facility] respiratory rate 2023-01-18 11:00:00 18 /min Common [facility] blood pressure systolic 2023-01-18 11:00:00 139 mm[Hg] [facility] blood pressure diastolic 2023-01-18 11:00:00 64 mm[Hg] [facility] height 2023-01-03 09:20:00 65 [in_i] Commo n [facility] weight 2023-01-03 09:20:00 135.8 [lb_av] Co mmon [facility] temperature 2023-01-03 09:20:00 98.4 [degF] Com mon [facility] bmi 2023-01-03 09:20:00 22.6 kg/m2 Commo n [facility] oximetry 2023-01-03 09:20:00 99 % Commo n [facility] respiratory rate 2023-01-03 09:20:00 17 /min Common [facility] blood pressure systolic 2023-01-03 09:20:00 139 mm[Hg] [facility] blood pressure diastolic 2023-01-03 09:20:00 73 mm[Hg] [facility] height 2022-10-19 11:00:00 65 [in_i] Commo n [facility] weight 2022-10-19 11:00:00 139.0 [lb_av] Co mmon [facility] temperature 2022-10-19 11:00:00 98.1 [degF] Com [facility] bmi 2022-10-19 11:00:00 23.13 kg/m2 Comm on [facility] oximetry 2022-10-19 11:00:00 98 % Commo n [facility] respiratory rate 2022-10-19 11:00:00 18 /min [facility] blood pressure systolic 2022-10-19 11:00:00 138 mm[Hg] Common [facility] blood pressure diastolic 2022-10-19 11:00:00 72 mm[Hg] [facility] height 2022-06-21 10:20:00 65 [in_i] Commo n [facility] weight 2022-06-21 10:20:00 137.5 [lb_av] Co mmon [facility] temperature 2022-06-21 10:20:00 97.3 [degF] Com mon [facility] bmi 2022-06-21 10:20:00 22.88 kg/m2 Comm on [facility] oximetry 2022-06-21 10:20:00 99 % Commo n [facility] respiratory rate 2022-06-21 10:20:00 18 /min [facility] blood pressure systolic 2022-06-21 10:20:00 139 mm[Hg] [facility] blood pressure diastolic 2022-06-21 10:20:00 72 mm[Hg] [facility] height 2022-06-21 10:30:00 65 [in_i] Commo n [facility] weight 2022-06-21 10:30:00 137.5 [lb_av] Co mmon [facility] temperature 2022-06-21 10:30:00 97.3 [degF] Com mon [facility] bmi 2022-06-21 10:30:00 22.88 kg/m2 Comm on [facility] oximetry 2022-06-21 10:30:00 99 % Commo n [facility] respiratory rate 2022-06-21 10:30:00 18 /min Common [facility] blood pressure systolic 2022-06-21 10:30:00 139 mm[Hg] [facility] blood pressure diastolic 2022-06-21 10:30:00 72 mm[Hg] [facility] height 2022-03-01 10:50:00 65 [in_i] Commo n [facility] weight 2022-03-01 10:50:00 138.6 [lb_av] Co [facility] temperature 2022-03-01 10:50:00 97.9 [degF] Com [facility] bmi 2022-03-01 10:50:00 23.06 kg/m2 Comm on [facility] oximetry 2022-03-01 10:50:00 100 % Commo n [facility] respiratory rate 2022-03-01 10:50:00 17 /min Common [facility] blood pressure systolic 2022-03-01 10:50:00 137 mm[Hg] Common [facility] blood pressure diastolic 2022-03-01 10:50:00 71 mm[Hg] Common [facility] height 2022-02-04 08:50:00 65 [in_i] Commo n [facility] weight 2022-02-04 08:50:00 139.1 [lb_av] Co [facility] temperature 2022-02-04 08:50:00 97.9 [degF] Com [facility] bmi 2022-02-04 08:50:00 23.14 kg/m2 Comm on [facility] oximetry 2022-02-04 08:50:00 100 % Commo n [facility] respiratory rate 2022-02-04 08:50:00 18 /min Common [facility] blood pressure systolic 2022-02-04 08:50:00 132 mm[Hg] [facility] blood pressure diastolic 2022-02-04 08:50:00 73 mm[Hg] Common [facility] height 2021-10-12 10:00:00 65 [in_i] Commo n [facility] weight 2021-10-12 10:00:00 138.2 [lb_av] Co mmon [facility] temperature 2021-10-12 10:00:00 98.1 [degF] Com mon [facility] bmi 2021-10-12 10:00:00 23 kg/m2 Commo n [facility] oximetry 2021-10-12 10:00:00 99 % Commo n [facility] respiratory rate 2021-10-12 10:00:00 18 /min Common [facility] blood pressure systolic 2021-10-12 10:00:00 135 mm[Hg] [facility] blood pressure diastolic 2021-10-12 10:00:00 76 mm[Hg] Common [facility] height 2021-06-14 13:20:00 65 [in_i] Commo n [facility] weight 2021-06-14 13:20:00 140.3 [lb_av] Co mmon [facility] temperature 2021-06-14 13:20:00 98.6 [degF] Com [facility] bmi 2021-06-14 13:20:00 23.34 kg/m2 Comm on [facility] oximetry 2021-06-14 13:20:00 98 % Commo n [facility] respiratory rate 2021-06-14 13:20:00 18 /min Common [facility] blood pressure systolic 2021-06-14 13:20:00 136 mm[Hg] [facility] blood pressure diastolic 2021-06-14 13:20:00 72 mm[Hg] [facility] height 2021-06-14 13:20:00 65 [in_i] Commo n [facility] weight 2021-06-14 13:20:00 140.3 [facility]lb_av] [facility] 2021-06-14 13:20:00 98.6 [degF] Com [facility] bmi 2021-06-14 13:20:00 23.34 kg/m2 Comm on [facility] oximetry 2021-06-14 13:20:00 98 % Commo n [facility] blood pressure systolic 2021-06-14 13:20:00 136 mm[Hg] Common [facility] blood pressure diastolic 2021-06-14 13:20:00 72 mm[Hg] [facility] Encounters Start Date/Time End Date/Time Encounter Type Admission Type Attending [facility] Emergency Department Facility Care Department Encounter ID Source 2024-01-08 15:33:00 Outpatient Chrystal Walker STLMLC STLMLC [id number] [facility] 2023-12-01 11:19:00 Outpatient Chrystal Walker STLMLC STLMLC [id number] [facility] 2023-11-07 16:02:00 Outpatient Chrystal Walker STLMLC STLMLC [id number] [facility] 2023-08-23 10:32:00 Outpatient Chrystal Walker STLMLC STLMLC [id number] [facility] 2023-07-31 14:11:00 Outpatient Chrystal Walker STLMLC STLMLC [id number] [facility] 2023-07-18 10:40:00 Outpatient Chrystal Walker STLMLC STLMLC [id number] [facility] 2023-06-27 13:29:00 Outpatient Dunne, Harshil STLMLC STLMLC [id number] [facility] 2023-03-06 13:24:00 Outpatient Dunne, Harshil STLMLC STLMLC [id number] [facility] 2023-01-02 13:44:00 Outpatient Dunne, Harshil STLMLC STLMLC [id number] [facility] 2022-06-17 10:26:01 Outpatient Dunne, Harshil STLMLC STLMLC [id number] [facility] 2021-06-16 14:39:24 Outpatient Dunne, Harshil STLMLC STLMLC [id number] [facility] 2021-06-16 14:03:38 Outpatient Dunne, Harshil STLMLC STLMLC [id number] [facility] 2021-06-16 13:44:46 Outpatient Dunne, Harshil STLMLC STLMLC [id number] [facility] 2021-06-16 13:36:15 Outpatient Dunne, Harshil STLMLC STLMLC [id number] [facility] 2021-06-16 13:31:27 Outpatient Dunne, Harshil STLMLC STLMLC [id number] [facility] 2021-06-16 12:56:38 Outpatient Dunne, Harshil STLMLC STLMLC [id number] [facility] 2021-06-16 12:28:06 Outpatient Dunne, Harshil STLMLC STLMLC [id number] [facility] 2021-06-16 12:27:09 Outpatient Dunne, Harshil STLMLC STLMLC [id number] [facility] 2021-06-16 12:25:55 Outpatient Dunne, Harshil STLMLC STLMLC [id number] [facility] 2021-06-16 12:24:00 Outpatient Dunne, Harshil STLMLC STLMLC [id number] [facility] 2021-06-16 12:00:42 Outpatient Dunne, Harshil STLMLC STLMLC [id number] [facility] 2021-06-16 11:45:34 Outpatient Dunne, Harshil STLMLC STLMLC [id number] [facility] 2021-06-16 11:27:29 Outpatient Dunne, Harshil STLC STLC [id number] [facility] 2021-06-16 11:23:46 Outpatient Dunne, Harshil STLC STLC [id number] [facility] 2021-06-16 11:16:21 Outpatient Dunne, Harshil STLC STLC [id number] [facility] 2021-06-16 11:12:14 Outpatient Dunen, Harshil STLC STLC [id number] [facility] 2023-12-29 08:02:02 2023-12-29 08:02:02 Outpatient [facility] [id number] Juan J Dow 2023-12-27 13:22:58 2023-12-27 13:22:58 Outpatient [facility] [id number] Juan J Dow 2023-12-01 10:42:30 2023-12-01 10:42:30 Outpatient [facility] [id number] Juan J Dow 2023-11-29 00:00:00 2023-11-29 00:00:00 (TEL) STLMLC STLMLC [id number] [facility] 2023-11-28 00:00:00 2023-11-28 00:00:00 (TEL) STLMLC STLMLC [id number] [facility] 2023-11-20 00:00:00 2023-11-20 00:00:00 (TEL) STLMLC STLMLC [id number] [facility] 2023-11-09 00:00:00 2023-11-09 00:00:00 (TEL) STLMLC STLMLC [id number] [facility] 2023-11-03 00:00:00 2023-11-03 00:00:00 (TEL) STLMLC STLMLC [id number] [facility] 2023-10-31 00:00:00 2023-10-31 00:00:00 OFFICE VISIT ESTAB PT LEVEL 4 STLMLC STLMLC [id number] [facility] 2023-10-31 00:00:00 2023-10-31 00:00:00 (TEL) STLMLC STLMLC [id number] [facility] 2023-10-30 00:00:00 2023-10-30 00:00:00 (TEL) STLMLC STLMLC [id number] [facility] 2023-10-06 00:00:00 2023-10-06 00:00:00 (TEL) STLMLC STLMLC [id number] [facility] 2023-09-20 00:00:00 2023-09-20 00:00:00 (TEL) STLMLC STLMLC [id number] [facility] 2023-09-13 00:00:00 2023-09-13 00:00:00 (TEL) STLMLC STLMLC [id number] [facility] 2023-09-05 00:00:00 2023-09-05 00:00:00 OFFICE VISIT ESTAB PT LEVEL 4 STLMLC STLMLC [id number] [facility] 2023-08-08 00:00:00 2023-08-08 00:00:00 (HOSP F/U) Hospital Follow Up STLMLC STLMLC [id number] [facility] 2023-08-02 00:00:00 2023-08-02 00:00:00 (TEL) STLMLC STLMLC [id number] [facility] 2023-08-02 00:00:00 2023-08-02 00:00:00 (TEL) STLMLC STLMLC [id number] [facility] 2023-07-18 00:00:00 2023-07-18 00:00:00 OFFICE VISIT NEW PT LEVEL 4 STLMLC STLMLC [id number] [facility] 2023-07-18 00:00:00 2023-07-18 00:00:00 SUB ANNUAL MCR WELLNESS VISIT STLMLC STLMLC [id number] [facility] 2023-06-15 00:00:00 2023-06-15 00:00:00 (TEL) STLMLC STLMLC [id number] [facility] 2023-03-06 00:00:00 2023-03-06 00:00:00 (TEL) STLMLC STLMLC [id number] [facility] 2023-03-06 00:00:00 2023-03-06 00:00:00 OFFICE VISIT ESTAB PT LEVEL 3 STLMLC STLMLC [id number] [facility] 2023-01-18 00:00:00 2023-01-18 00:00:00 OFFICE VISIT ESTAB PT LEVEL 4 STLMLC STLMLC [id number] [facility] 2023-01-03 00:00:00 2023-01-03 00:00:00 OFFICE VISIT ESTAB PT LEVEL 4 STLMLC STLMLC [id number] [facility] 2023-01-02 00:00:00 2023-01-02 00:00:00 (TEL) STLMLC STLMLC [id number] [facility] 2022-10-19 00:00:00 2022-10-19 00:00:00 OFFICE VISIT ESTAB PT LEVEL 4 STLMLC STLMLC [id number] [facility] 2022-07-06 00:00:00 2022-07-06 00:00:00 (TEL) STLMLC STLMLC [id number] [facility] 2022-06-21 00:00:00 2022-06-21 00:00:00 OFFICE VISIT ESTAB PT LEVEL 4 STLMLC STLMLC [id number] [facility] 2022-06-21 00:00:00 2022-06-21 00:00:00 SUB ANNUAL MCR WELLNESS VISIT STLMLC STLMLC [id number] [facility] 2022-06-21 00:00:00 2022-06-21 00:00:00 (TEL) STLMLC STLMLC [id number] [facility] 2022-03-01 00:00:00 2022-03-01 00:00:00 OFFICE VISIT ESTAB PT LEVEL 4 STLMLC STLMLC [id number] [facility] 2022-02-11 00:00:00 2022-02-11 00:00:00 (TEL) STLMLC STLMLC [id number] [facility] 2022-02-04 00:00:00 2022-02-04 00:00:00 OFFICE VISIT EST PT LEVEL 3 STLMLC STLMLC [id number] [facility] 2022-02-03 00:00:00 2022-02-03 00:00:00 (TEL) STLMLC STLMLC [id number] [facility] 2021-10-12 00:00:00 2021-10-12 00:00:00 OFFICE VISIT ESTAB PT LEVEL 4 STLMLC STLMLC [id number] [facility] 2021-07-29 00:00:00 2021-07-29 00:00:00 (TEL) STLMLC STLMLC [id number] [facility] 2021-07-13 00:00:00 2021-07-13 00:00:00 (TEL) STLMLC STLMLC [id number] [facility] 2021-07-05 00:00:00 2021-07-05 00:00:00 (TEL) STLMLC STLMLC [id number] [facility] 2021-06-14 00:00:00 2021-06-14 00:00:00 OFFICE VISIT EST PT LEVEL 3 STLMLC STLMLC [id number] [facility] 2021-06-14 00:00:00 2021-06-14 00:00:00 SUB ANNUAL MCR WELLNESS VISIT STLMLC STLMLC [id number] [facility] 2021-05-24 00:00:00 2021-05-24 00:00:00 (TEL) STLMLC STLMLC [id number] [facility] 2021-05-20 00:00:00 2021-05-20 00:00:00 (TEL) STLMLC STLMLC [id number] [facility] 2021-03-11 00:00:00 2021-03-11 00:00:00 (TEL) STLMLC STLMLC [id number] [facility] 2021-03-08 00:00:00 2021-03-08 00:00:00 (TEL) STLMLC STLMLC [id number] [facility] 2021-02-15 00:00:00 2021-02-15 00:00:00 Outpatient STLMLC STLMLC [id number] [facility] 2021-01-20 00:00:00 2021-01-20 00:00:00 Outpatient STLMLC STLMLC [id number] [facility] 2020-12-16 00:00:00 2020-12-16 00:00:00 Outpatient STLMLC STLMLC [id number] [facility] 2020-12-16 00:00:00 2020-12-16 00:00:00 Outpatient STLMLC STLMLC [id number] [facility] 2020-09-22 00:00:00 2020-09-22 00:00:00 Outpatient STLMLC STLMLC [id number] [facility] 2020-09-22 00:00:00 2020-09-22 00:00:00 Outpatient STLMLC STLMLC [id number] [facility] 2020-07-22 00:00:00 2020-07-22 00:00:00 Outpatient STLMLC STLMLC [id number] [facility] 2020-07-01 00:00:00 2020-07-01 00:00:00 Outpatient STLMLC STLMLC [id number] [facility] 2020-06-24 00:00:00 2020-06-24 00:00:00 Outpatient STLMLC STLMLC [id number] [facility] 2020-06-23 00:00:00 2020-06-23 00:00:00 Outpatient STLMLC STLMLC [id number] [facility] 2020-06-11 00:00:00 2020-06-11 00:00:00 Outpatient STLMLC STLMLC [id number] [facility] 2020-06-02 00:00:00 2020-06-02 00:00:00 Outpatient STLMLC STLMLC [id number] [facility] 2020-03-18 00:00:00 2020-03-18 00:00:00 Outpatient STLMLC STLMLC [id number] [facility] 2020-03-18 00:00:00 2020-03-18 00:00:00 Outpatient STLMLC STLMLC [id number] [facility] 2020-03-16 00:00:00 2020-03-16 00:00:00 Outpatient STLMLC STLMLC [id number] [facility] 2020-02-27 00:00:00 2020-02-27 00:00:00 Outpatient STLMLC STLMLC [id number] [facility] 2020-02-24 00:00:00 2020-02-24 00:00:00 Outpatient STLMLC STLMLC [id number] [facility] 2020-02-17 00:00:00 2020-02-17 00:00:00 Outpatient STLMLC STLMLC [id number] [facility] 2020-02-12 00:00:00 2020-02-12 00:00:00 Outpatient STLMLC STLMLC [id number] [facility] 2020-02-03 09:00:00 2020-02-03 09:00:00 [facility] [id number] [facility] 2020-01-28 11:00:00 2020-01-28 11:00:[address] [facility] [address] [facility] Medicine [id number] [facility] 2020-01-20 09:00:00 2020-01-20 09:00:[address] [facility] [address] [facility] [facility] [id number] [facility] 2020-01-13 08:50:00 2020-01-13 08:50:[address] [facility] [id number] [facility] 2020-01-06 09:00:00 2020-01-06 09:00:[address] [facility] [id number] [facility] 2019-12-30 09:00:00 2019-12-30 09:00:[address] [facility] [id number] [facility] 2019-12-23 08:45:00 2019-12-23 08:45:[address] [facility] [id number] [facility] 2019-12-18 11:30:00 2019-12-18 11:30:[address] [facility] [id number] [facility] 2019-12-16 09:00:00 2019-12-16 09:00:[address] [facility] [id number] [facility] 2019-12-09 09:00:00 2019-12-09 09:00:[address] [facility] [id number] [facility] 2019-12-02 09:30:00 2019-12-02 09:30:[address] [facility] [id number] [facility] 2019-11-25 09:00:00 2019-11-25 09:00:[address] [facility] [id number] [facility] 2019-11-18 09:00:00 2019-11-18 09:00:[address] [facility] [id number] [facility] 2019-11-12 11:00:00 2019-11-12 11:00:[address] [facility] [id number] [facility] 2019-11-11 10:00:00 2019-11-11 10:00:00 [facility] [id number] [facility] 2019-11-07 11:23:00 2019-11-07 11:23:[address] [facility] [id number] [facility] 2019-11-04 09:00:00 2019-11-04 09:00:[address] [facility] [id number] [facility] 2019-10-28 09:00:00 2019-10-28 09:00:[address] [facility] [id number] [facility] 2019-10-22 13:45:00 2019-10-22 13:45:[address] [facility] [id number] [facility] 2019-10-15 09:00:00 2019-10-15 09:00:00 [facility] [id number] [facility] 2019-10-07 09:00:00 2019-10-07 09:00:[address] [facility] [id number] [facility] 2019-09-30 10:00:00 2019-09-30 10:00:[address] [facility] [id number] [facility] 2019-09-23 08:08:00 2019-09-23 08:08:[address] [facility] [facility] [id number] [facility] 2019-09-18 15:45:00 2019-09-18 15:45:00 [facility] [id number] [facility] 2019-09-18 15:45:00 2019-09-18 15:45:00 [facility] [id number] [facility] 2019-08-08 10:00:00 2019-08-08 10:00:00 Outpatient [facility] [id number] [facility] 2019 16:38:00 2019 16:38:00 Outpatient [facility] [id number] [facility] 2019 14:22:00 2019 14:22:00 Outpatient [facility] [id number] [facility] 2019 14:00:00 2019 14:00:00 Outpatient [facility] [id number] [facility] Results Test Description Test Time Test Comments Results Result Co mments Source LIPID PANEL WITH REFLEX DIRECT [id number] 00:00:00* Test Item Value Reference Range Interpretation Comme nts CALC LDL CHOL (test code = 28236-2) 86 MG/DL See_Comment [Automated [employer]] The system which generated this result transmitted reference range: <100 MG/DL. The reference range was not used to interpret this result as normal/abnormal. CHOLESTEROL (test code = 2093-3) 149 MG/DL See_Comment [Automated [employer]] The system which generated this result transmitted reference range: <200 MG/DL. The reference range was not used to interpret this result as normal/abnormal. HDL CHOLESTEROL (test code = 2085-9) 41 MG/DL See_Comment [Automated [employer]] The system which generated this result transmitted reference range: >39 MG/DL. The reference range was not used to interpret this result as normal/abnormal. RISK RATIO LDL/HDL (test code = 11537-8) 2.10 RATIO See_Comment [Automated message] The system which generated this result transmitted reference range: <3.55 RATIO. The reference range was not used to interpret this result as normal/abnormal. TRIGLYCERIDES (test code = 2571-8) 122 MG/DL See_Comment [Automated [employer]] The system which generated this result transmitted reference range: <150 MG/DL. The reference range was not used to interpret this result as normal/abnormal. POC, COVID 19 Antigen + Flu by SofiaPOC, COVID 19 Antigen + Flu by Adelina
[2024-02-07 18:12] LABS: Absolute Basophils 0.1 K/uL (0-0.5); Absolute Eosinophils 0.2 K/uL (0-0.5); Absolute Lymphocytes (CBC) 1.3 K/uL (0.7-4.9); Absolute Monocytes 0.5 K/uL (0.1-1.3); Absolute Neutrophil 3.4 K/uL (1.8-8.0); Basophils % 1.4 % (0-1.3); Eosinophils % 4.1 % (0-4.4); Hematocrit 24.8 % (39.6-49.0); Hemoglobin 8.3 g/dL (13.6-17.9); Lymphocytes % 23.9 % (15.3-44.8); MCH 31.6 pg (27.0-35.0); MCHC 33.4 g/dL (32.0-36.0); MCV 94.6 fL (80-100); MPV 7.2 fL (7.6-11.3); Monocytes % 9.6 % (3.3-12.3); Platelets 259 thou/uL (152-406); RBC Red Blood Cell Count 2.62 M/uL (4.33-5.43); Red Cell Distribution Width 15.7 % (12.1-15.2)
[2024-02-07 18:14] LABS: PT Prothrombin Time 10.9 SECONDS (9.4-12.5); Protime INR 0.97
--- NOTE | 2024-02-07 18:40 | RAD REPORT ---
EXAM: CT brain without contrast HISTORY: Dizziness COMPARISON: November 2003 TECHNIQUE: Multiple contiguous axial images were obtained and a CT of the brain without contrast. Sagittal and coronal reformats were performed. Automated exposure control, adjustment of the mA and/or kV according to patient size, and/or itera tive reconstruction. Unless otherwise specified, incidental findings do not require dedicated imaging follow-u FINDINGS: An intracranial bleed is not seen Ventricles are normal caliber No extra-axial fluid collection noted No significant hypodensity within the brain No fluid within the visualized sinuses or mastoids noted. IMPRESSION: No acute intracranial abnormality noted. If the patient's symptoms persist MRI of the brain would be recommended.
[2024-02-07 18:46] LABS: ALT/SGPT 39 U/L (16-61); AST/SGOT 22 U/L (15-37); Albumin 3.2 g/dL (3.4-5.0); Albumin/Globulin Ratio 0.8 (1.1-1.8); Alkaline Phosphatase 121 U/L (45-117); BUN Blood Urea Nitrogen 63 mg/dL (7-18); Bicarbonate 17 mEq/L (21-32); Bilirubin Total 0.2 mg/dL (0.2-1.0); Glomerular Filtration Rate 15 ml/min (=/>90); Glucose Level 120 mg/dL (74-106); Lipase 357 U/L (13-75); Magnesium 2.4 mg/dL (1.6-2.4); NT PRO-BNP 1321 pg/mL (<450); Protein, Total 7.2 g/dL (6.4-8.2); Sodium Level 138 mEq/L (136-145); Troponin High Sensitivity 10.8 pg/mL (<58.9)
[2024-02-07 18:48] LABS: Bilirubin Direct < 0.2 mg/dL (0-0.2)
--- NOTE | 2024-02-07 18:57 | RAD REPORT ---
Extrem Venous W Compress Jasiel History: Reason For Study Comparison: July 2003 TECHNIQUE: Complete bilateral duplex sonography of the bilateral lower extremity veins was performed. The examination included compression for vein patency, color Doppler imaging and flow augmentation in response to distal compression of the distal external iliac, common femoral, femoral, popliteal, t ibial, and great saphenous veins. Grayscale, color and spectral analysis performed on all vessels COMPARISON: No prior exam. FINDINGS: Duplex sonography testing of the veins of the bilateral lower extremity was performed. Color flow simeon ging shows all veins to be compressible with [id number] color filling. Pulsatile and phasic flow is present within all lower extremity deep and superficial veins examined. IMPRESSION: No evidence of deep venous thrombosis.
--- NOTE | 2024-02-07 19:19 | RAD REPORT ---
Procedure: Chest Single View History: Cough Comparison: November 2023. Lung bases mild hazy Remainder of the lungs are clear. No significant pleural effusion noted. The heart is moderately enlarged IMPRESSION : Lung bases are mildly hazy probably secondary to overlying soft tissue. Infiltrates can have a inder lar appearance. PA and lateral chest series may be helpful for further evaluation
--- NOTE | 2024-02-07 19:28 | EDPHYS ---
Physician Documentation [facility] Name: Iam Nelson Age: 78 yrs Sex: Male : 1945 Arrival Date: 02/07/2024 Time: 16:31 Bed 15 Private MD: ED Physician Miguelangel Suarez HPI: 02/06 17:51 This 78 yrs old Male presents to ER via Ambulatory with complaints of General brandan Weakness, cant sleep, Leg Swelling. 17:51 The patient presents with an injury, pain, swelling. The complaints affect the right brandan leg and left leg. Context: The problem was sustained at an unknown site. Onset: The symptoms/episode began/occurred 14 day(s) ago. Modifying factors: The symptoms are alleviated by elevating leg, the symptoms are aggravated by movement, weight bearing. Associated signs and symptoms: Pertinent positives: weakness. WEAK , LEGS SWELLING. Treatment prior to arrival includes: no previous treatment. Severity of symptoms: At their worst the symptoms were moderate in the emergency department the symptoms are unchanged. The patient has experienced similar episodes in the past, multiple times. Historical: - Allergies: 17:04 No Known Allergies; tm6 - PMHx: 17:04 Cataracts; Hyperlipidemia; Hypertension; inflammed prostate; tm6 - PSHx: 17:04 None; cataracts; tm6 - Immunization history:: Client reports receiving the 2nd dose of the Covid vaccine. - Infectious Disease History:: Denies. - Social history:: Smoking status: Patient denies any tobacco usage or history of. - Family history:: not pertinent. ROS: 17:54 Constitutional: Negative for fever, chills, and weight loss, Eyes: Negative for injury, brandan pain, redness, and discharge, ENT: Negative for injury, pain, and discharge, Neck: Negative for injury, pain, and swelling, Cardiovascular: Negative for chest pain, palpitations, and edema, Respiratory: Negative for shortness of breath, cough, wheezing, and pleuritic chest pain, Abdomen/GI: Negative for abdominal pain, nausea, vomiting, diarrhea, and constipation, Back: Negative for injury and pain, : Negative for injury, bleeding, discharge, and swelling, Skin: Negative for injury, rash, and discoloration, Psych: Negative for depression, anxiety, suicide ideation, homicidal ideation, and hallucinations, Allergy/Immunology: Negative for hives, rash, and allergies, Endocrine: Negative for neck swelling, polydipsia, polyuria, polyphagia, and marked weight changes, Hematologic/Lymphatic: Negative for swollen nodes, abnormal bleeding, and unusual bruising, 17:54 MS/extremity: Positive for swelling, tenderness, of the right leg and left leg, Exam: 17:54 Constitutional: This is a well developed, well nourished patient who is awake, alert, brandan and in no acute distress. Head/Face: Normocephalic, atraumatic. Eyes: Pupils equal round and reactive to light, extra-ocular motions intact. Lids and lashes normal. Conjunctiva and sclera are non-icteric and not injected. Cornea within normal limits. Periorbital areas with no swelling, redness, or edema. ENT: Nares patent. No nasal discharge, no septal abnormalities noted. Tympanic membranes are normal and external auditory canals are clear. Oropharynx with no redness, swelling, or masses, exudates, or evidence of obstruction, uvula midline. Mucous membranes moist. Neck: Trachea midline, no thyromegaly or masses palpated, and no cervical lymphadenopathy. Supple, full range of motion without nuchal rigidity, or vertebral point tenderness. No Meningismus. Chest/axilla: Normal chest wall appearance and motion. Nontender with no deformity. No lesions are appreciated. Cardiovascular: Regular rate and rhythm with a normal S1 and S2. No gallops, murmurs, or rubs. Normal PMI, no JVD. No pulse deficits. Respiratory: Lungs have equal breath sounds bilaterally, clear to auscultation and percussion. No rales, rhonchi or wheezes noted. No increased work of breathing, no retractions or nasal flaring. Abdomen/GI: Soft, non-tender, with normal bowel sounds. No distension or tympany. No guarding or rebound. No evidence of tenderness throughout. Back: No spinal tenderness. No costovertebral tenderness. Full range of motion. Male : Normal genitalia with no discharge or lesions. Skin: Warm, dry with normal turgor. Normal color with no rashes, no lesions, and no evidence of cellulitis. Neuro: Awake and alert, GCS 15, oriented to person, place, time, and situation. Cranial nerves II-XII grossly intact. Motor strength 5/5 in all extremities. Sensory grossly intact. Cerebellar exam normal. Normal gait. Psych: Awake, alert, with orientation to person, place and time. Behavior, mood, and affect are within normal limits. 17:54 Musculoskeletal/extremity: ROM: full active range of motion, full passive range of motion, in all extremities, Circulation is intact in all extremities. Compartment Syndrome exam of affected extremity: is normal. Weight bearing: able to fully bear weight, DVT Exam: negative Homans' sign noted on exam, no appreciated bluish discoloration, no erythema, no increased warmth, pain, swelling, tenderness, 18:41 ECG was reviewed by the Attending Physician. [facility] Vital Signs: 17:01 BP 160 / 77; Pulse 67; Resp 19; Temp 98(O); Pulse Ox 99% on R/A; Weight 63.5 kg; Height tm6 5 ft. 5 in. ; Pain 6/10; 19:14 BP 171 / 57; Pulse 78; Resp 18; Temp 98(O); Pulse Ox 100% ; rg5 17:01 Body Mass Index 23.30 (63.50 kg, 165.1 cm) tm6 17:01 Pain Scale: Adult tm6 [place] Coma Score: 17:54 Eye Response: spontaneous(4). Motor Response: obeys commands(6). Verbal Response: brandan oriented(5). Total: 15. 19:14 Eye Response: spontaneous(4). Motor Response: obeys commands(6). Verbal Response: rg5 oriented(5). Total: 15. MDM: 17:11 Patient medically screened. brandan 18:41 Differential diagnosis: contusion, tendonitis. Differential Diagnosis altered mental brandan status, sepsis, flu. Data reviewed: vital signs, nurses notes, lab test result(s), EKG, radiologic studies, CT scan, plain films. Consideration of Admission/Observation Escalation of care including admission/observation considered. I considered the following discharge prescriptions or medication management in the emergency department Medications were administered in the Emergency Department. See MAR. Independent interpretation of the following test(s) in the Emergency Department EKG: See my EKG interpretation above. Test considered but Not performed: Ultrasound NO RENAL USG. Care significantly affected by the following chronic conditions: Hypertension, CATARACTS, HYPERLIPIDEMIA, PROSTATITIS. 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 02/06 17:39 Order name: Basic Metabolic Panel; Complete Time: 19:17 [facility] 02/06 17:39 Order name: CBC with Diff; Complete Time: 19:17 [facility] 02/06 17:39 Order name: LFT's; Complete Time: 19:17 [facility] 02/06 17:39 Order name: Magnesium; Complete Time: 19:17 [facility] 02/06 17:39 Order name: NT PRO-BNP; Complete Time: 19:17 [facility] 02/06 17:39 Order name: PT-INR; Complete Time: 19:17 [facility] 02/06 17:39 Order name: Troponin HS; Complete Time: 19:17 [facility] 02/06 17:39 Order name: Lipase; Complete Time: 19:17 [facility] 02/06 17:39 Order name: Urinalysis w/ reflexes [facility] 02/06 21:02 Order name: Urinalysis w/ reflexes [facility] 02/06 21:02 Order name: CBC with Automated Diff [facility] 02/06 21:02 Order name: CBC with Automated Diff [facility] 02/06 21:02 Order name: Comprehensive Metabolic Panel [facility] 02/06 21:02 Order name: Comprehensive Metabolic Panel [facility] 02/06 17:39 Order name: XRAY Chest (1 view); Complete Time: 19:20 [facility] 02/06 17:39 Order name: US Extremity Venous W Compression Jasiel; Complete Time: 19:17 [facility] 02/06 17:49 Order name: CT Head Brain wo Cont; Complete Time: 19:17 [facility] 02/06 19:20 Order name: CT Chest Abdomen Pelvis W/O Contrast [facility] 02/06 21:02 Order name: CONS Physician Consult [facility] 02/06 17:39 Order name: Cardiac monitoring; Complete Time: 18:11 [facility] 02/06 17:39 Order name: EKG - Nurse/Tech; Complete Time: 18:11 [facility] 02/06 17:39 Order name: IV Saline Lock; Complete Time: 18:11 [facility] 02/06 17:39 Order name: Labs collected and sent; Complete Time: 18:11 [facility] 02/06 17:39 Order name: O2 Per Protocol; Complete Time: 18:11 [facility] 02/06 17:39 Order name: O2 Sat Monitoring; Complete Time: 18:11 [facility] 02/06 19:23 Order name: Powers: STRICT I AND O'S; Complete Time: 21:51 [facility] EC:41 Rate is 78 beats/min. Rhythm is regular. QRS [place] is Normal. PA interval is normal. QRS brandan interval is normal. QT interval is normal. No Q waves. T waves are Normal. No ST changes noted. Clinical impression: NSR w/ Non-specific ST/T Changes and No evidence of ischemia. Interpreted by me. Reviewed by me. Administered Medications: 17:54 Not Given (Duplicate Order): ns 0.9% 500 ml IV at bolus once brandan 20:55 Drug: Ipratropium Inhalation Aerosol 0.5 mg Inhalation once Route: Inhalation; rg5 21:00 Drug: Albuterol Inhalation 5 mg Inhalation once Route: Inhalation; rg5 21:00 Drug: D50W IVP 50 ml IVP once; (1 amp) Route: IVP; Site: right forearm; rg5 21:05 Drug: Insulin Regular Human IVP 10 units IVP once; AFTER D50 {Co-Signature: cp4 rg5 (Xiomara Diallo).} Route: IVP; Site: right forearm; 21:25 Drug: D5W IV 1000 ml, Sodium Bicarbonate IVP 150 mEq IV at 75 ml/hr continuous Route: rg5 IV; Rate: 75 ml/hr; Site: left forearm; 21:27 Drug: Furosemide IVP 60 mg IVP once; give over 2 minutes Route: IVP; Site: right rg5 forearm; 21:28 Drug: Kayexalate PO 45 grams PO once Route: PO; rg5 21:41 Drug: Calcium Gluconate IVPB 1 grams IVPB once over 20 mins; (mix in NS 100 mL) Route: rg5 IVPB; Infused Over: 20 mins; Site: right forearm; 22:07 Not [facility] sodium bicarbonate0.5 amp IVP once; (50 mL); tm6 equals 50 mEq Disposition Summary: 02/07/24 19:27 Hospitalization Ordered Notes: Hospitalization Status: Inpatient Admission brandan Provider: Chava Marquez cha Location: Telemetry/[facility] (Inpatient) brandan Condition: Fair brandan Problem: new brandan Symptoms: have improved brandan Bed/Room Type: Standard brandan Room Assignment: 202(02/07/24 21:17) [facility] Diagnosis - Weakness brandan - Hyperkalemia brandan - Anemia in chronic kidney disease brandan - Essential (primary) hypertension brandan - Chronic combined systolic (congestive) and diastolic (congestive) heart failure brandan - Edema, unspecified bradnan - Acute kidney failure, unspecified - ON CHRONIC brandan Forms: - Medication Reconciliation Form brandan - SBAR form brandan - Leadership Thank You Letter brandan Signatures: Dispatcher [employer] EDMS Miguelangel Suarez MD MD cha Forrester, Kelsey Maroul [facility] Charleen Jones RN RN tm6 Yovanny Holloway RN RN rg5 Xiomara Diallo cp4 Corrections: (The following items were deleted from the chart) 17:40 17:40 BASIC METABOLIC PANEL+C.LAB.BRZ ordered. EDMS EDMS 17:40 17:40 CBC+H.LAB.BRZ ordered. EDMS EDMS 17:40 17:40 HEPATIC FUNCTION+C.LAB.BRZ ordered. EDMS EDMS 17:40 17:40 MAGNESIUM+C.LAB.BRZ ordered. EDMS EDMS 17:40 17:40 PROBNP+C.LAB.BRZ ordered. EDMS EDMS 17:40 17:40 PROTIME (+INR)+COAG.LAB.BRZ ordered. EDMS EDMS 17:40 17:40 Troponin High Sensitivity+C.LAB.BRZ ordered. EDMS EDMS 17:40 17:40 LIPASE+C.LAB.BRZ ordered. EDMS EDMS 17:40 17:40 Urinalysis+U.LAB.BRZ ordered. EDMS EDMS 17:40 17:40 Chest Single View+RAD.RAD.BRZ ordered. EDMS EDMS 17:40 17:40 Extrem Venous W Compression Jasiel+US.RAD.BRZ ordered. EDMS EDMS 21:17 19:27 brandan kmf
--- NOTE | 2024-02-07 19:28 | ER ---
Nurse's Notes [facility] Name: Iam Nelson Age: 78 yrs Sex: Male : 1945 Arrival Date: 02/07/2024 Time: 16:31 Bed 15 Private MD: Diagnosis: Weakness;Hyperkalemia;Anemia in chronic kidney disease;Essential (primary) hypertension;Chronic combined systolic (congestive) and diastolic (congestive) heart failure;Edema, unspecified;Acute kidney failure, unspecified-ON CHRONIC Presentation: 02/06 17:02 Chief complaint: Patient states: three weeks ago, started to have weakness, fatigue, tm6 nausea, bilateral leg swelling, unable to sleep. Coronavirus screen: Vaccine status:. Coronavirus screen: Vaccine status: Patient reports receiving the 2nd dose of the covid vaccine. Ebola Screen: Patient negative for fever greater than or equal to 101.5 degrees Fahrenheit, and additional compatible Ebola Virus Disease symptoms Patient denies exposure to infectious person. Patient denies travel to an Ebola-affected area in the 21 days before illness onset. No symptoms or risks identified at this time. Initial Sepsis Screen: Does the patient meet any 2 criteria? No. Patient's initial sepsis screen is negative. Does the patient have a suspected source of infection? No. Patient's initial sepsis screen is negative. Risk Assessment: Do you want to hurt yourself or someone else?. Onset of symptoms was January 17, 2024. 17:02 Method Of Arrival: Ambulatory tm6 17:02 Acuity: DORA 3 tm6 Triage Assessment: 17:04 General: Appears in no apparent distress. Behavior is calm, cooperative. Pain: tm6 Complains of pain in face Pain currently is 6 out of 10 on a pain scale. Quality of pain is described as aching. EENT: No signs and/or symptoms were reported regarding the EENT system. Neuro: Level of Consciousness is awake, alert, obeys commands, Oriented to person, place, time, situation, Reports headache. Cardiovascular: Patient's skin is warm and dry. Respiratory: Airway is patent Respiratory effort is even, unlabored, Respiratory pattern is regular, symmetrical. GI: Abdomen is flat, non-distended, Reports nausea, vomiting. : No signs and/or symptoms were reported regarding the genitourinary system. Derm: No signs and/or symptoms reported regarding the dermatologic system. Musculoskeletal: Reports general weakness for 3 weeks. Historical: - Allergies: 17:04 No Known Allergies; tm6 - PMHx: 17:04 Cataracts; Hyperlipidemia; Hypertension; inflammed prostate; tm6 - PSHx: 17:04 None; cataracts; tm6 - Immunization history:: Client reports receiving the 2nd dose of the Covid vaccine. - Infectious Disease History:: Denies. - Social history:: Smoking status: Patient denies any tobacco usage or history of. - Family history:: not pertinent. Screenin:08 [facility] ED Fall Risk Assessment (Adult) History of falling in the last 3 months, mb9 including since admission No falls in past 3 months (0 pts) Confusion or Disorientation No (0 pts) Intoxicated or Sedated No (0 pts) Impaired Gait No (0 pts) Mobility Assist Device Used No (0 pt) Altered Elimination No (0 pt) Score/Fall Risk Level 0 - 2 = Low Risk Oriented to surroundings, Maintained a safe environment, Educated pt \T\ family on fall prevention, incl call for assistance when getting out of bed. Abuse screen: Denies threats or abuse. Nutritional screening: No deficits noted. Tuberculosis screening: No symptoms or risk factors identified. Assessment: 18:07 General: Appears in no apparent distress. Behavior is calm, cooperative, appropriate mb9 for age. Pain: Complains of pain in right leg and left leg Pain does not radiate. Neuro: Bernard Agitation-Sedation Scale (RASS): 0 - Alert and Calm Level of Consciousness is awake, alert, obeys commands, Oriented to person, place, time, situation, Appropriate for age. Cardiovascular: Patient's skin is warm and dry. Cardiovascular: Edema is 2+ to left ankle, left foot, right ankle and right foot. Respiratory: Airway is patent Respiratory effort is even, unlabored, Respiratory pattern is regular, symmetrical. GI: No signs and/or symptoms were reported involving the gastrointestinal system. : No signs and/or symptoms were reported regarding the genitourinary system. EENT: No signs and/or symptoms were reported regarding the EENT system. Derm: Skin is pink, warm \T\ dry. Musculoskeletal: Range of motion: intact in all extremities. 19:13 General: Appears in no apparent distress. Behavior is calm, cooperative, appropriate rg5 for age. Neuro: Level of Consciousness is awake, alert, obeys commands. Cardiovascular: Patient's skin is warm and dry. Respiratory: Airway is patent Respiratory effort is even, unlabored, Respiratory pattern is regular, symmetrical. Musculoskeletal: Range of motion: intact in all extremities. Vital Signs: 17:01 BP 160 / 77; Pulse 67; Resp 19; Temp 98(O); Pulse Ox 99% on R/A; Weight 63.5 kg; Height tm6 5 ft. 5 in. ; Pain 6/10; 19:14 BP 171 / 57; Pulse 78; Resp 18; Temp 98(O); Pulse Ox 100% ; rg5 17:01 Body Mass Index 23.30 (63.50 kg, 165.1 cm) tm6 17:01 Pain Scale: Adult tm6 Sonia Coma Score: 17:54 Eye Response: spontaneous(4). Motor Response: obeys commands(6). Verbal Response: brandan oriented(5). Total: 15. 19:14 Eye Response: spontaneous(4). Motor Response: obeys commands(6). Verbal Response: rg5 oriented(5). Total: 15. ED Course: 16:33 Patient arrived in ED. im 17:04 Triage completed. tm6 17:04 Arm band placed on right wrist. tm6 17:11 Miguelangel Suarez MD is Attending Physician. brandan 17:49 Brittney Neely, RN is Primary Nurse. se 18:06 Placed in gown. Bed in low position. Call light in reach. Side rails up X 1. Provided se Education on: press call light if needing anything. Client placed on continuous cardiac and pulse oximetry monitoring. NIBP monitoring applied. awake overnight monitor on. Door closed. Noise minimized. Warm blanket given. Pillow given. 18:06 Initial lab(s) drawn, by me, sent to lab. EKG done, by ED staff, reviewed by Miguelangel Suarez MD. Inserted saline lock: 20 gauge in right forearm, using aseptic technique. Blood collected. Flushed with 10 mL NS. 18:08 No provider procedures requiring assistance completed. se 18:17 CT Head Brain wo Cont In Process Unspecified. EDMS 18:42 US Extremity Venous W Compression Jasiel In Process Unspecified. EDMS 18:58 XRAY Chest (1 view) In Process Unspecified. EDMS 19:04 Report given to JEREMY Hairston. mb9 19:26 Chava Marquez MD is Hospitalizing Provider. brandan 20:03 CT Chest Abdomen Pelvis W/O Contrast In Process Unspecified. EDMS 21:00 Inserted saline lock: 18 gauge in left forearm, using aseptic technique. Flushed with rg5 10 mL NS. 21:58 Powers cath inserted, using sterile technique, 16 Fr., by in, balloon inflated, to tm6 gravity drainage, returned clear yellow urine. Patient tolerated well. 23:25 Patient admitted, IV remains in place. cp4 Administered Medications: 17:54 Not Given (Duplicate Order): ns 0.9% 500 ml IV at bolus once brandan 20:55 Drug: Ipratropium Inhalation Aerosol 0.5 mg Inhalation once Route: Inhalation; rg5 21:00 Drug: Albuterol Inhalation 5 mg Inhalation once Route: Inhalation; rg5 21:00 Drug: D50W IVP 50 ml IVP once; (1 amp) Route: IVP; Site: right forearm; rg5 21:05 Drug: Insulin Regular Human IVP 10 units IVP once; AFTER D50 {Co-Signature: cp4 rg5 (Xiomara Diallo).} Route: IVP; Site: right forearm; 21:25 Drug: D5W IV 1000 ml, Sodium Bicarbonate IVP 150 mEq IV at 75 ml/hr continuous Route: rg5 IV; Rate: 75 ml/hr; Site: left forearm; 21:27 Drug: Furosemide IVP 60 mg IVP once; give over 2 minutes Route: IVP; Site: right rg5 forearm; 21:28 Drug: Kayexalate PO 45 grams PO once Route: PO; rg5 21:41 Drug: Calcium Gluconate IVPB 1 grams IVPB once over 20 mins; (mix in NS 100 mL) Route: rg5 IVPB; Infused Over: 20 mins; Site: right forearm; 22:07 Not Given (medication given in [facility]): sodium bicarbonate0.5 amp IVP once; (50 mL); tm6 equals 50 mEq Medication: 18:08 VIS not applicable for this client. mb9 Outcome: 19:27 Decision to Hospitalize by Provider. brandan 23:14 Admitted to Med/surg accompanied by tech, via stretcher, with chart, cp4 23:14 Condition: stable 23:14 Instructed on the need for admit, 23:25 Patient left the ED. cp4 Signatures: Dispatcher [employer] EDMiguelangel Coyle MD MD cha Wilkerson, Brittney Connolly, RN RN mb9 [place] Christina cp4 Charleen Jones RN RN tm6 Yovanny Holloway RN RN rg5 Xiomara Diallo 4
[2024-02-07 19:35] LABS: Specific Gravity 1.012 (1.005-1.030); Sqamous Epithelial None Seen /HPF (None Seen); Urine Bacteria None Seen /HPF (<20); Urine Bilirubin NEGATIVE (Negative); Urine Blood 2+ (Negative); Urine Clarity Clear (Clear); Urine Color Colorless (Yellow); Urine Culture Reflex Order NOT NEEDED; Urine Glucose TRACE (Negative); Urine Ketones NEGATIVE (Negative); Urine Microscopic Reflex YN ORDER UMIC; Urine Nitrite NEGATIVE (Negative); Urine Protein 4+ (Over) (Negative); Urine Urobilinogen Normal (Normal); Urine WBC <5 /HPF (<5); Urine pH 6.5 (5.0-7.0)
--- NOTE | 2024-02-07 20:41 | RAD REPORT ---
EXAM: CT CHEST, ABDOMEN AND PELVIS WITHOUT CONTRAST CLINICAL INDICATION: Shortness of breath and flank pain. TECHNIQUE: CT chest, abdomen and pelvis was performed, without IV contrast, as per department protoco l. Axial, sagittal and coronal reconstructions were obtained. One or more of the following dose reduction techniques were used: Automated exposure control, adjustment of the mA and/or kV according to the patient size, and/or iterative reconstruction. Unless otherwise specified, incidental findings do not require dedicated imaging follow-up.. Oral contrast not given COMPARISON: November 2023 FINDINGS: The lack of intravenous contrast limits the sensitivity of this exam for evaluation of solid visceral organs, vascular structures, and bowel Subcentimeter nodule abutting the right major fissure unchanged likely benign. Minimal right middle lobe opacities unchanged. Left lung is clear No pleural effusion. Small pericardial effusion unchanged No mediastinal or hilar lymphadenopathy. Liver, spleen, pancreas, adrenals and right kidney grossly normal. Small left renal cyst. Small left inguinal hernia No evidence of diverticulitis. Umbilical hernia IMPRESSION: No acute abnormalities displayed
[2024-02-07] MEDS ORDERED: INSULIN REGULAR (HUMAN) 100 UNIT/ML ONE (20:46)
[2024-02-07] MEDS ORDERED: ALBUTEROL 2.5 MG/3 ML NEB SOL ONE (20:50)
[2024-02-07] MEDS ORDERED: IPRATROPIUM BROM 0.5MG/2.5ML ONE (20:50)
[2024-02-07] MEDS ORDERED: FUROSEMIDE 20 MG/ 2ML VIAL ONE (20:50)
[2024-02-07] MEDS ORDERED: SODIUM BICARB 50 MEQ/50ML VIAL ONE (20:51)
[2024-02-07] MEDS ORDERED: FUROSEMIDE 40 MG/4 ML VIAL ONE (20:51)
--- NOTE | 2024-02-07 20:51 | P.HP ---
Certification for Inpatient Patient admitted to: Inpatient With expected LOS: >2 Midnights Practitioner: I am a practitioner with admitting privileges, knowledge of patient current condition, hospital course, and medical plan of care. Services: Services provided to patient in accordance with Admission requirements found in Title 42 Section 412.3 of the Code of Federal Regulations Patient History Date of Service: 02/08/24 Reason for admission: Generalized weakness History of Present Illness: 78 yrs old Male with past medical history of hypertension, hyperlipidemia, history of cataract, BPH who was brought to ER with generalized weakness Insomnia and leg swelling. Patient states that he had a fall. 2 weeks ago. Patient is a poor historian hence most of the history is obtained from the chart review and also talking to the ER physician. Patient has bilateral lower extremity swelling. States that it has been worsening over the last 15 days. Denies any chest pain or shortness of breath. Denies any fever or chills. Denies any nausea vomiting or diarrhea. Patient was assessed in the ER and had a workup with Doppler which was negative for DVT and also CT of the abdomen pelvis which was negative. Patient is being admitted for further management of hyperkalemia and acute kidney injury on CKD stage II Allergies No Known Drug Allergies Allergy (Verified 01/09/19 20:46) Unknown Home medications list reviewed: Yes Home Medications: Amlodipine [Norvasc*] 10 mg PO DAILY 07/21/17 Ferrous Sulfate 325 mg PO DAILY 02/07/24 Finasteride 5 mg PO DAILY 02/07/24 Furosemide [Lasix*] 40 mg PO BID 02/07/24 Losartan/Hydrochlorothiazide [Losartan-Hctz 50-12.5 mg Tab] 1 each PO DAILY 02/07/24 Metoprolol Tartrate 50 mg PO DAILY 02/07/24 - Past Medical/Surgical History Diabetic: No Past Medical History: Reviewed- Non-Contributory -: HTN -: Hyperlipidemia -: BPH -: Cataracts -: GERD -: CKD Stage IV followed by Dr. Quesada/Dr. Magallon Past Surgical History: Reviewed- Non-Contributory Psychosocial/ Personal History: Patient is - Family History Family History: Reviewed- Non-Contributory - Family History Mother -: Cancer Notes: tumor - Social History Smoking Status: Never smoker Alcohol use: No CD- Drugs: No Caffeine use: No Review of Systems 10-point ROS is otherwise unremarkable Physical Examination - Vital Signs Temperature: 97.4 F Blood Pressure: 186/81 Pulse: 90 Respirations: 18 Pulse Ox (%): 94 - Physical Exam General: Alert, Oriented x3, Mild distress HEENT: Atraumatic, Normocephalic Neck: Supple, 2+ carotid pulse no bruit Respiratory: Clear to auscultation bilaterally, Diminished, Crackles/rales Cardiovascular: Regular rate/rhythm, Normal S1 S2, Edema Capillary refill: <2 Seconds Gastrointestinal: Soft and benign, W/out hepatosplenomegaly, No ascites, No tenderness Musculoskeletal: No erythema, Swelling Integumentary: No rashes Neurological: Normal speech, Normal strength at 5/5 x4 extr, Cranial nerves 3-12 intact Lymphatics: No axilla or inguinal lymphadenopathy - Studies Laboratory Data (last 24 hrs) 02/07/24 02/07/24 02/07/24 18:03 18:03 18:03 WBC 5.60 Hgb 8.3 L Hct 24.8 L Plt Count 259 PT 10.9 INR 0.97 Sodium 138 Potassium 6.0 H BUN 63 H Creatinine 3.87 H Glucose 120 H Magnesium 2.4 Total Bilirubin 0.2 AST 22 ALT 39 Alkaline Phosphatase 121 H Lipase 357 H Assessment and Plan - Plan Hyperkalemia Antihyperkalemic measures Patient already received Kayexalate in ER Will monitor potassium levels Monitor closely on telemetry Renal parameters monitored Will add on Lokelma if not better Acute kidney injury on CKD stage II Nephrology consulted Electrolytes monitor and replace accordingly Acute on chronic CHF possibly combined systolic/diastolic Aggressive diuresis Will get an echocardiogram Monitor closely under telemetry Accelerated Hypertension Antihypertensives titrated Continue home medications and titrate as needed Anemia of chronic disease Monitor H&H closely No overt bleeding at this time GI/DVT prophylaxis Advanced directive full code Discharge Plan: Home Plan to discharge in: 48 Hours - Advance Directives Does patient have a Living Will: No Does patient have a Durable POA for Healthcare: No - Code Status/Comfort Care Code Status: Full Code Time Spent Managing Pts Care (In Minutes): 48
[2024-02-07] MEDS ORDERED: NA CHLORIDE 0.9% 500 ML ONE (20:52)
[2024-02-07] MEDS ORDERED: SOD POLYSTYREN SUL 15 GM/60 ML UCUP ONE (20:52)
[2024-02-07] MEDS ORDERED: D50W 25 GM/50 ML SYRINGE IV ONE (20:53)
[2024-02-07] MEDS ORDERED: D5W 1,000 ML IV ONE (20:54)
[2024-02-07] MEDS ORDERED: ONDANSETRON 4 MG/2 ML VIAL IV PRN (20:56)
[2024-02-07] MEDS ORDERED: CALCIUM GLUCONATE 1 GM IVPB 1 GM/50 ML BAG IV ONE (21:38)
[2024-02-07] MEDS: SODIUM BICARB 50 MEQ/50ML VIAL ONE (21:56)
[2024-02-07] MEDS ORDERED: ACETAMINOPHEN 325 MG TABLET ONE (21:58)
[2024-02-07] MEDS: ACETAMINOPHEN 325 MG TABLET PO PRN (21:59)
[2024-02-08 00:13] VITALS: BMI 23.3
[2024-02-08] MEDS: HEPARIN 5000 UNIT/ML 1 ML VIAL SQ SCH (00:36)
[2024-02-08 05:06] LABS: Absolute Basophils 0.1 K/uL (0-0.5); Absolute Lymphocytes (CBC) 0.8 K/uL (0.7-4.9); Absolute Monocytes 0.4 K/uL (0.1-1.3); Absolute Neutrophil 6.4 K/uL (1.8-8.0); Basophils % 0.7 % (0-1.3); Eosinophils % 0.2 % (0-4.4); Hematocrit 20.7 % (39.6-49.0); Lymphocytes % 10.5 % (15.3-44.8); MCH 31.6 pg (27.0-35.0); MCHC 33.7 g/dL (32.0-36.0); MCV 93.7 fL (80-100); MPV 7.3 fL (7.6-11.3); Monocytes % 5.1 % (3.3-12.3); Neutrophils % 83.5 % (41.7-73.7); Platelets 228 thou/uL (152-406); RBC Red Blood Cell Count 2.21 M/uL (4.33-5.43); Red Cell Distribution Width 15.7 % (12.1-15.2)
[2024-02-08 05:22] LABS: Albumin 2.6 g/dL (3.4-5.0); Albumin/Globulin Ratio 0.8 (1.1-1.8); Anion Gap 12.3 mEq/L (5.0-15.0); Bilirubin Total 0.2 mg/dL (0.2-1.0); Globulin 3.1 g/dL (2.3-3.5); Phosphorus 5.9 mg/dL (2.5-4.9); Potassium 5.3 mEq/L (3.5-5.1); Protein, Total 5.7 g/dL (6.4-8.2); Uric Acid 6.3 mg/dL (3.5-7.2)
[2024-02-08] MEDS: HYDRALAZINE HCL 20 MG/ML VIAL IV PRN (05:43)
[2024-02-08] MEDS: FUROSEMIDE 40 MG/4 ML VIAL IV SCH (05:44)
[2024-02-08] MEDS: FERROUS SULFATE 325 MG TAB PO SCH (08:34)
[2024-02-08] MEDS: METOPROLOL XL 50 MG TAB PO SCH ×2 (08:35→21:01)
[2024-02-08] MEDS: AMLODIPINE 10 MG TAB PO SCH (08:35)
[2024-02-08] MEDS: FINASTERIDE 5 MG TAB PO SCH (08:35)
--- NOTE | 2024-02-08 09:31 | P.CNS ---
Date of Consult: 02/08/24 Reason for Consult: SANTINO/ CKD Requesting Physician: mey haq Chief Complaint: Generalized weakness History of Present Illness: 78 yrs old Male with past medical history of hypertension, hyperlipidemia, history of cataract, BPH who was brought to ER with generalized weakness Insomnia and leg swelling. Patient states that he had a fall. 2 weeks ago. Patient is a poor historian hence most of the history is obtained from the chart review and also talking to the ER physician. Patient has bilateral lower extremity swelling. States that it has been worsening over the last 15 days. Denies any chest pain or shortness of breath. Denies any fever or chills. Denies any nausea vomiting or diarrhea. Patient was assessed in the ER and had a workup with Doppler which was negative for DVT and also CT of the abdomen pelvis which was negative. Patient is being admitted for further management of hyperkalemia and acute kidney injury on CKD stage II 17:51 This 78 yrs old Male presents to ER via Ambulatory with complaints of General brandan Weakness, cant sleep, Leg Swelling. 17:51 The patient presents with an injury, pain, swelling. The complaints affect the right brandan leg and left leg. Context: The problem was sustained at an unknown site. Onset: The symptoms/episode began/occurred 14 day(s) ago. Modifying factors: The symptoms are alleviated by elevating leg, the symptoms are aggravated by movement, weight bearing. Associated signs and symptoms: Pertinent positives: weakness. WEAK , LEGS SWELLING. Treatment prior to arrival includes: no previous treatment. Severity of symptoms: At their worst the symptoms were moderate in the emergency department the symptoms are unchanged. The patient has experienced similar episodes in the past, multiple times. Allergies No Known Drug Allergies Allergy (Verified 01/09/19 20:46) Unknown Home medications list reviewed: Yes Home Medications: Amlodipine [Norvasc*] 10 mg PO DAILY 07/21/17 Ferrous Sulfate 325 mg PO DAILY 02/07/24 Finasteride 5 mg PO DAILY 02/07/24 Furosemide [Lasix*] 40 mg PO BID 02/07/24 Losartan/Hydrochlorothiazide [Losartan-Hctz 50-12.5 mg Tab] 1 each PO DAILY 02/07/24 Metoprolol Tartrate 50 mg PO DAILY 02/07/24 - Past Medical/Surgical History Diabetic: No -: HTN -: HLD -: BPH -: Cataracts -: GERD -: CKD IV/ Proteinuria (Dr. Quesada/Dr. Magallon) Psychosocial/ Personal History: Patient is - Family History Mother Medical History: Cancer Notes: tumor - Social History Smoking Status: Never smoker Alcohol use: No CD- Drugs: No Caffeine use: No Place of Residence: Home Review of Systems 10-point ROS is otherwise unremarkable General: Weakness, Malaise Respiratory: SOB with Excertion, Other (Orthopnea) Cardiovascular: Edema Physical Examination Temp Pulse Resp BP Pulse Ox 97.9 F 95 H 18 176/77 H 99 02/08/24 08:00 02/08/24 08:00 02/08/24 08:00 02/08/24 08:00 02/08/24 08:00 General: In no apparent distress, Oriented x3, Cooperative HEENT: Atraumatic Neck: Supple Respiratory: Crackles/rales Cardiovascular: Regular rate/rhythm, Edema Gastrointestinal: Soft and benign, Non-distended Musculoskeletal: No clubbing, No contractures Integumentary: No rashes, No cyanosis Neurological: Normal speech Urinary: Powers catheter Laboratory Data (last 24 hrs) 02/07/24 02/07/24 02/07/24 18:03 18:03 18:03 WBC 5.60 Hgb 8.3 L Hct 24.8 L Plt Count 259 PT 10.9 INR 0.97 Sodium 138 Potassium 6.0 H BUN 63 H Creatinine 3.87 H Glucose 120 H Magnesium 2.4 Total Bilirubin 0.2 AST 22 ALT 39 Alkaline Phosphatase 121 H Lipase 357 H Imagings Data: [id number] EXAM: CT CHEST, ABDOMEN AND PELVIS WITHOUT CONTRAST CLINICAL INDICATION: Shortness of breath and flank pain. TECHNIQUE: CT chest, abdomen and pelvis was performed, without IV contrast, as per department protocol. Axial, sagittal and coronal reconstructions were obtained. One or more of the following dose reduction techniques were used: Automated exposure control, adjustment of the mA and/or kV according to the patient size, and/or iterative reconstruction. Unless otherwise specified, incidental findings do not require dedicated imaging follow-up.. Oral contrast not given COMPARISON: November 2023 FINDINGS: The lack of intravenous contrast limits the sensitivity of this exam for evaluation of solid visceral organs, vascular structures, and bowel Subcentimeter nodule abutting the right major fissure unchanged likely benign. Minimal right middle lobe opacities unchanged. Left lung is clear No pleural effusion. Small pericardial effusion unchanged No mediastinal or hilar lymphadenopathy. Liver, spleen, pancreas, adrenals and right kidney grossly normal. Small left renal cyst. Small left inguinal hernia No evidence of diverticulitis. Umbilical hernia IMPRESSION: No acute abnormalities displayed [address] History: Cough Comparison: November 2023. Lung bases mild hazy Remainder of the lungs are clear. No significant pleural effusion noted. The heart is moderately enlarged IMPRESSION : Lung bases are mildly hazy probably secondary to overlying soft tissue. Infiltrates can have a similar appearance. PA and lateral chest series may be helpful for further evaluation [address] History: Reason For Study Comparison: July 2003 TECHNIQUE: Complete bilateral duplex sonography of the bilateral lower extremity veins was performed. The examination included compression for vein patency, color Doppler imaging and flow augmentation in response to distal compression of the distal external iliac, common femoral, femoral, popliteal, tibial, and great saphenous veins. Grayscale, color and spectral analysis performed on all vessels COMPARISON: No prior exam. FINDINGS: Duplex sonography testing of the veins of the bilateral lower extremity was performed. Color flow imaging shows all veins to be compressible with [id number] color filling. Pulsatile and phasic flow is present within all lower extremity deep and superficial veins examined. IMPRESSION: No evidence of deep venous thrombosis. [address] Reason for Exam: DIZZINESS Report Status: Signed EXAM: CT brain without contrast HISTORY: Dizziness COMPARISON: November 2003 TECHNIQUE: Multiple contiguous axial images were obtained and a CT of the brain without contrast. Sagittal and coronal reformats were performed. Automated exposure control, adjustment of the mA and/or kV according to patient size, and/or iterative reconstruction. Unless otherwise specified, incidental findings do not require dedicated imaging follow-u FINDINGS: An intracranial bleed is not seen Ventricles are normal caliber No extra-axial fluid collection noted No significant hypodensity within the brain No fluid within the visualized sinuses or mastoids noted. IMPRESSION: No acute intracranial abnormality noted. Conclusions/Impression: Stage I SANTINO likely CRS CKD IV with Proteinuria -No NSAIDs -Continue diuresis Hyperkalemia -Kayexalate given yesterday -Lokelma prn -Continue Lasix Metabolic Acidosis, improving -Oral bicarb prn -Continue Lasix HTN with CKD/ CHF -Increase Metoprolol XL 50mg BID -Continue Amlodipine Diastolic CHF, A/C -Daily weight -Continue Lasix -Echocardiogram pending Hypoalbuminemia, moderate -Start Nepro Anemia in chronic illness/ CKD -Monitor H&H -Retacrit X1 -PRBC prn -May benefit from outpt Retacrit -Check anemia labs CKD MBD HyperPhosphatemia -Start Ergo and Calcitriol -Start Renvela Hospitalist and ER notes reviewed Thank you kindly for the consultation
[2024-02-08 10:21] LABS: Ferritin 107.2 ng/mL (26-388)
[2024-02-08] MEDS: EPOETIN ALFA-EPBX 10,000 UNIT/ML VIAL SQ SCH (10:45)
[2024-02-08] MEDS: SODIUM ZIRCONIUM CYCLOSILICATE 10 GM/PKT PO SCH (10:45)
--- NOTE | 2024-02-08 12:14 | EKG ---
Test Date: 2024-02-08 Test Time: 06:43:43 Ship'S Master: PVAL MEASUREMENT RESULTS: Intervals: Rate: 96 MO: 164 QRSD: 70 QT: 344 QTc: 434 [place]: P: 43 MO: 164 QRS: -73 T: 57 INTERPRETIVE STATEMENTS: Normal sinus rhythm Left axis deviation Pulmonary disease pattern Abnormal ECG Compared to ECG 02/07/2024 17:58:01 No significant changes Electronically Signed On 02-08-24 12:14:07 CDT by Hieu Barnhart
--- NOTE | 2024-02-08 12:16 | EKG ---
Test Date: 2024-02-07 Test Time: 17:58:01 Weight Reducing Technician: MB MEASUREMENT RESULTS: Intervals: Rate: 78 AL: 164 QRSD: 82 QT: 366 QTc: 417 Means: P: 62 AL: 164 QRS: -67 T: 61 INTERPRETIVE STATEMENTS: Normal sinus rhythm Left axis deviation Abnormal ECG Compared to ECG 12/14/2023 12:44:56 Left-axis deviation now present Left anterior fascicular block no longer present Electronically Signed On 02-08-24 12:15:06 CDT by Hieu Barnhart
[2024-02-08] MEDS: DRISDOL (VITAMIN D=ERGOCALCIFEROL) 50000 UNIT CAP PO SCH (12:32)
[2024-02-08] MEDS: SEVELAMER CARBONATE 800 MG TABLET PO SCH (12:32)
--- NOTE | 2024-02-08 12:33 | P.PN ---
Subjective Date of Service: 02/08/24 Chief Complaint: Generalized weakness Patient has no new complaint. He denies shortness of breath. He has good urine output. He is tolerating diet. Physical Examination - Vital Signs Temperature: 97.9 F Blood Pressure: 176/77 Pulse: 95 Respirations: 18 Pulse Ox (%): 99 - Studies Laboratory Data (last 24 hrs) 02/07/24 02/07/24 02/07/24 18:03 18:03 18:03 WBC 5.60 Hgb 8.3 L Hct 24.8 L Plt Count 259 PT 10.9 INR 0.97 Sodium 138 Potassium 6.0 H BUN 63 H Creatinine 3.87 H Glucose 120 H Magnesium 2.4 Total Bilirubin 0.2 AST 22 ALT 39 Alkaline Phosphatase 121 H Lipase 357 H Assessment And Plan - Plan Physical examination General: Alert and oriented x3, NAD, HEENT: Conjunctiva not pale, anicteric sclera Neck: Supple, no elevated JVD Heart: Heart sounds 1 and 2 normal, regular rhythm, normal rate, no pedal edema Lungs: Clear to auscultation bilaterally, adequate breath sounds bilaterally, no rhonchi or crackles. Abdomen: Soft, nondistended, nontender, normal bowel sounds. Extremities: No tenderness, no deformity Skin: Normal skin turgor, no rash, no nodules or ulcers. Neuro: No focal motor deficit. Normal speech. Psychiatry: Normal mood, no agitation. Assessment and plan Hyperkalemia Acute kidney injury on CKD stage IV Antihyperkalemic measures Patient already received Kayexalate in ER Will monitor potassium levels Telemetry Lokelma as needed. IV Lasix therapy Nephrology input appreciated Monitor renal function Acute on chronic diastolic heart failure Aggressive diuresis Repeat echocardiogram Telemetry. Accelerated Hypertension Continue home antihypertensives. Hydralazine as needed. Anemia of chronic kidney disease Monitor H&H closely No overt bleeding at this time Transfuse as needed for hemoglobin less than 7. GI/DVT prophylaxis: Heparin. Advanced directive full code
--- NOTE | 2024-02-08 12:49 | ECHO ---
HEIGHT: 5 ft 5 in WEIGHT: 140 lb 0 oz DATE OF STUDY: 02/08/[address]: Steve Marquez DO 2-DIMENSIONAL: YES M.MODE: YES DOPPLER: YES COLOR FLOW: YES TDS: PORTABLE: YES DEFINITY: BUBBLE STUDY: DIAGNOSIS: CONGESTIVE HEART FAILURE CARDIAC HISTORY: CATHERIZATION: YES SURGERY: NO PROSTHETIC VALVE: NO PACEMAKER: NO MEASUREMENTS (cm) DIASTOLIC (NORMALS) SYSTOLIC (NORMALS) IVSd 1.4 (0.6-1.2) LA Diam 2.9 (1.9-4.0) LVEF 60-65% LVIDd 3.9 (3.5-5.7) LVIDs 2.1 (2.0-3.5) %FS LVPWd 1.4 (0.6-1.2) Ao Diam 2.8 (2.0-3.7) 2 DIMENSIONAL ASSESSMENT: RIGHT ATRIUM: NORMAL LEFT ATRIUM: NORMAL RIGHT VENTRICLE: NORMAL LEFT VENTRICLE: MILD LEFT VENTRICULAR HYPERTROPHY TRICUSPID VALVE: TRACE TRICUSPID REGURGITATION MITRAL VALVE: NORMAL PULMONIC VALVE: NORMAL AORTIC VALVE: NORMAL PERICARDIAL EFFUSION: NONE AORTIC ROOT: NORMAL LEFT VENTRICULAR WALL MOTION: NORMAL DOPPLER/COLOR FLOW: GRADE I DIASTOLIC DYSFUNCTION COMMENTS: 1. NORMAL LEFT VENTRICULAR SYSTOLIC FUNCTION, EJECTION FRACTION 60-65%, NORMAL WALL MOTION 2. GRADE I DIASTOLIC DYSFUNCTION TECHNOLOGIST: PATRICIA FIELDS
[2024-02-08] MEDS: NEPRO SHAKE 237 ML CAN PO SCH (13:43)
[2024-02-08] MEDS: DOCUSATE NA 100 MG CAP PO SCH (21:01)
[2024-02-09] MEDS: CALCITROL 0.25 MCG CAP PO SCH (09:01)
[2024-02-09 11:03] LABS: Absolute Basophils 0.1 K/uL (0-0.5); Absolute Eosinophils 0.2 K/uL (0-0.5); Absolute Lymphocytes (CBC) 0.9 K/uL (0.7-4.9); Absolute Monocytes 0.5 K/uL (0.1-1.3); Absolute Neutrophil 4.3 K/uL (1.8-8.0); Eosinophils % 3.1 % (0-4.4); Hematocrit 21.6 % (39.6-49.0); Hemoglobin 7.2 g/dL (13.6-17.9); Lymphocytes % 15.3 % (15.3-44.8); MCH 31.3 pg (27.0-35.0); MCHC 33.2 g/dL (32.0-36.0); MCV 94.3 fL (80-100); MPV 7.7 fL (7.6-11.3); Monocytes % 8.9 % (3.3-12.3); Neutrophils % 71.7 % (41.7-73.7); Platelets 232 thou/uL (152-406); RBC Red Blood Cell Count 2.29 M/uL (4.33-5.43); Red Cell Distribution Width 15.5 % (12.1-15.2)
[2024-02-09 11:15] LABS: Albumin 2.5 g/dL (3.4-5.0); Anion Gap 10.2 mEq/L (5.0-15.0); Phosphorus 6.4 mg/dL (2.5-4.9); Potassium 4.2 mEq/L (3.5-5.1)
[2024-02-09] MEDS: SOD FERRIC GLUC COMPLX/SUCROSE 125 MG in NA CHLORIDE 0.9% 100 ML IV SCH (11:21)
--- NOTE | 2024-02-09 11:33 | P.PN ---
Nephrology note (S) Pt well known to me from prior hospitalizations, reports HAYWOOD this AM, worse after AM meds, discussed renal function tests and trajectory but pt has poor insight and with language barriers, pt has poor understanding of his low GFR state and the risk of dialysis being initiated in the near future. Vitals reviewed in the EMR General: Alert, In no apparent distress, Cooperative HEENT: Atraumatic, Normocephalic Neck: Supple Respiratory: Clear to auscultation bilaterally, Normal air movement Cardiovascular: Regular rate/rhythm mostly Gastrointestinal: Soft and benign, Non-distended, No tenderness, gale present Musculoskeletal: Mild distal edema, No contractures Integumentary: No rashes, No tenderness Neurological: Normal speech, Normal tone, Normal affect Conclusions/Impression: A/P) 1. Stage III ARF with Cr level trending to > 4 mg/dl on lasix diuretics on underlying progressive CKD Stage IV with CKD for some time with GFR lower since late and with sub nephrotic proteinuria on spot urine testing. Neg prior serologic w/u but some concern for intrinsic renal disease but no renal biopsy performed it appears. Has been lost to f/u in the clinic setting for periods but did come in this summer Discussed dialysis planning briefly and if renal function does not improve on this admission, may need to proceed in that direction during this admission 2. TTE does not show signs of elevated filling pressures, LA is not dilated, BNP just over 1000 but with renal failure difficult to interpret. No pulm edema or effusions, suspend Lasix. Chronic peripheral edema on CCB. 3. Prior renal imaging has not shown any obstructive uropathy issues but given findings of a low density small lesion in the left kidney which is likely a cyst as seen on renal u/s from late 2021, repeat u/s in July showed b/l renal cysts and echogenic kidneys c/w CKD 4. Hyperkalemia, recurrent. Hold REBECCA inhibitors. K better this AM 5. Chronic HTN with CKD, other -trend BP, mod elevated freq 6. Anemia 2nd to CKD and iron deficiency -contributory to symptoms, place on iron series
[2024-02-09] MEDS: SEVELAMER CARBONATE 800 MG TABLET PO SCH (12:41)
--- NOTE | 2024-02-09 14:20 | P.PN ---
Subjective Date of Service: 02/09/24 Chief Complaint: Generalized weakness Patient has no new complaint. His lower extremity edema have significantly improved. Serum creatinine trended up. Hemoglobin is borderline low. He has good urine output. Physical Examination - Vital Signs Temperature: 98.7 F Blood Pressure: 150/71 Pulse: 76 Respirations: 16 Pulse Ox (%): 97 Assessment And Plan - Plan Physical examination General: Alert and oriented x3, NAD, HEENT: Anicteric sclera Neck: Supple, no elevated JVD Heart: Heart sounds 1 and 2 normal, regular rhythm, normal rate, no pedal edema Lungs: Clear to auscultation bilaterally, adequate breath sounds bilaterally, no rhonchi or crackles. Abdomen: Soft, nondistended, nontender, normal bowel sounds. Extremities: No tenderness, no deformity Skin: Normal skin turgor, no rash, no nodules or ulcers. Neuro: No focal motor deficit. Normal speech. Psychiatry: Normal mood, no agitation. Assessment and plan Hyperkalemia Acute kidney injury on CKD stage IV Status post Kayexalate in the ER Patient diuresed well with IV Lasix. Hyperkalemia resolved Lokelma as needed. Creatinine trended up from yesterday Nephrology is following and managing. IV Lasix discontinued Monitor renal function. Acute on chronic diastolic heart failure Aggressive diuresis Echocardiogram 02/07 shows normal EF, unremarkable Accelerated Hypertension Blood pressure readings improved Continue home antihypertensives. Hydralazine as needed. Anemia of chronic kidney disease Iron deficiency Monitor H&H closely No overt bleeding at this time Transfuse as needed for hemoglobin less than 7. Patient started on iron replacement per nephrology. GI/DVT prophylaxis: Heparin. Advanced directive full code
[2024-02-10 07:44] LABS: Absolute Basophils 0.1 K/uL (0-0.5); Absolute Eosinophils 0.3 K/uL (0-0.5); Absolute Lymphocytes (CBC) 1.2 K/uL (0.7-4.9); Absolute Monocytes 0.7 K/uL (0.1-1.3); Absolute Neutrophil 3.8 K/uL (1.8-8.0); Eosinophils % 4.4 % (0-4.4); Hematocrit 21.9 % (39.6-49.0); Hemoglobin 7.4 g/dL (13.6-17.9); Lymphocytes % 20.3 % (15.3-44.8); MCH 31.5 pg (27.0-35.0); MCHC 33.6 g/dL (32.0-36.0); MCV 93.7 fL (80-100); MPV 7.8 fL (7.6-11.3); Monocytes % 11.2 % (3.3-12.3); Neutrophils % 63.1 % (41.7-73.7); Nucleated Red Blood Cells % 0.2 % (0-0); Platelets 252 thou/uL (152-406); RBC Red Blood Cell Count 2.34 M/uL (4.33-5.43); Red Cell Distribution Width 15.6 % (12.1-15.2)
[2024-02-10 07:57] LABS: Albumin 2.5 g/dL (3.4-5.0); Anion Gap 11.2 mEq/L (5.0-15.0); Phosphorus 5.8 mg/dL (2.5-4.9); Potassium 4.2 mEq/L (3.5-5.1)
[2024-02-10] MEDS: CALCITROL 0.25 MCG CAP PO SCH (09:24)
--- NOTE | 2024-02-10 11:40 | P.PN ---
Subjective Date of Service: 02/10/24 Chief Complaint: Generalized weakness Patient has no new complaint. His lower extremity edema has resolved Serum creatinine continue to trended up. Hemoglobin is borderline low. Physical Examination - Vital Signs Temperature: 97.6 F Blood Pressure: 167/67 Pulse: 73 Respirations: 16 Pulse Ox (%): 95 Assessment And Plan - Plan Physical examination General: Alert and oriented x3, NAD, HEENT: Anicteric sclera Neck: No elevated JVD Heart: Heart sounds 1 and 2 normal, regular rhythm, normal rate, no pedal edema Lungs: Clear to auscultation bilaterally, adequate breath sounds bilaterally, no rhonchi or crackles. Abdomen: Soft, nondistended, nontender, normal bowel sounds. Extremities: No tenderness, no deformity Skin: Normal skin turgor, no rash, no nodules or ulcers. Neuro: No focal motor deficit. Normal speech. Psychiatry: Normal mood, no agitation. Assessment and plan Hyperkalemia Acute kidney injury on CKD stage IV Status post Kayexalate in the ER Patient diuresed well with IV Lasix. Hyperkalemia resolved Lokelma as needed. Creatinine trended up. Nephrology is following and managing. IV Lasix discontinued Monitor renal function. Acute on chronic diastolic heart failure Status post IV Lasix. Echocardiogram 02/07 shows normal EF, unremarkable Accelerated Hypertension Blood pressure readings improved Continue home antihypertensives. Added Oral hydralazine. Hydralazine as needed. Anemia of chronic kidney disease Iron deficiency Monitor H&H closely No overt bleeding at this time Transfuse as needed for hemoglobin less than 7. Patient started on iron replacement per nephrology. GI/DVT prophylaxis: Heparin. Advanced directive full code
--- NOTE | 2024-02-10 12:08 | P.PN ---
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 In center HD vs PD discussed as well. Pt had some HAYWOOD, dizziness and nausea yesterday but feels a bit better today Vitals reviewed in the EMR General: Alert, In no apparent distress, Cooperative HEENT: Atraumatic, Normocephalic Neck: Supple Respiratory: Clear to auscultation bilaterally, Normal air movement Cardiovascular: Regular rate/rhythm mostly Gastrointestinal: Soft and benign, Non-distended, No tenderness, gale present Musculoskeletal: Mild distal edema, No contractures Integumentary: No rashes, No tenderness Neurological: Normal speech, Normal tone, Normal affect Conclusions/Impression: A/P) 1. Stage III ARF with Cr level trending to > 4 mg/dl on lasix diuretics on underlying progressive CKD Stage IV with CKD for some time with GFR lower since late and with sub nephrotic proteinuria on spot urine testing. Neg prior serologic w/u but some concern for intrinsic renal disease but no renal biopsy performed it appears. Has been lost to f/u in the clinic setting for periods but did come in this summer Cr level remains > 4 mg/dl with diuretics held, UOP acceptable, maintain gale for now Discussed dialysis planning and if renal function does not stabilize on this admission or pt remains symptomatic, may need to proceed in that direction during this admission. 2. TTE does not show signs of elevated filling pressures, LA is not dilated, BNP just over 1000 but with renal failure difficult to interpret. No pulm edema or effusions, suspended Lasix. Chronic peripheral edema on CCB. 3. Prior renal imaging has not shown any obstructive uropathy issues but given findings of a low density small lesion in the left kidney which is likely a cyst as seen on renal u/s from late 2021, repeat u/s in July showed b/l renal cysts and echogenic kidneys c/w CKD 4. Hyperkalemia, recurrent. Hold REBECCA inhibitors. K better 5. Chronic HTN with CKD, other -trend BP, mod elevated freq. Agree with Hydralazine 6. Anemia 2nd to CKD and iron deficiency -contributory to symptoms, placed on IV iron series
[2024-02-10] MEDS: HYDRALAZINE HCL 25 MG TABLET PO SCH (12:57)
[2024-02-10] MEDS: NA CHLORIDE 0.9% 500 ML IV ONE (12:58)
[2024-02-10] MEDS: EPOETIN ALFA-EPBX 10,000 UNIT/ML VIAL SQ ONE (12:59)
[2024-02-10] MEDS ORDERED: EPOETIN ALFA-EPBX 10,000 UNIT/ML VIAL SQ SCH (13:00)
[2024-02-11 07:50] LABS: Absolute Basophils 0.1 K/uL (0-0.5); Absolute Eosinophils 0.3 K/uL (0-0.5); Absolute Lymphocytes (CBC) 1.2 K/uL (0.7-4.9); Absolute Monocytes 0.9 K/uL (0.1-1.3); Absolute Neutrophil 4.7 K/uL (1.8-8.0); Basophils % 0.9 % (0-1.3); Eosinophils % 4.2 % (0-4.4); Hematocrit 21.5 % (39.6-49.0); Hemoglobin 7.2 g/dL (13.6-17.9); Lymphocytes % 17.1 % (15.3-44.8); MCH 31.8 pg (27.0-35.0); MCHC 33.7 g/dL (32.0-36.0); MCV 94.3 fL (80-100); MPV 8.2 fL (7.6-11.3); Neutrophils % 65.8 % (41.7-73.7); Nucleated Red Blood Cells % 0.5 % (0-0); Platelets 261 thou/uL (152-406); RBC Red Blood Cell Count 2.27 M/uL (4.33-5.43); Red Cell Distribution Width 15.5 % (12.1-15.2)
[2024-02-11 08:13] LABS: Albumin 2.4 g/dL (3.4-5.0); Anion Gap 12.1 mEq/L (5.0-15.0); Phosphorus 4.8 mg/dL (2.5-4.9); Potassium 4.1 mEq/L (3.5-5.1)
[2024-02-11 08:47] LABS: Band Neutrophils 1 % (0-1); Differential Total Cells Count 100; Eosinophils 4 % (0-3); Lymphocytes 16 % (15-42); Monocytes 15 % (0-10); Segmented Neutrophils 63 % (40-80)
[2024-02-11 08:48] LABS: Blood Morphology Comment NOT SEEN (NOT SEEN); Nucleated Red Blood Cells 1 /100WBC; Platelet Estimate ADEQ
--- NOTE | 2024-02-11 13:16 | P.PN ---
Subjective Date of Service: 02/11/24 Chief Complaint: Generalized weakness Patient has no new complaint. No lower extremity swelling. Serum creatinine continue to trended down from yesterday. Physical Examination - Vital Signs Temperature: 98.6 F Blood Pressure: 156/70 Pulse: 80 Respirations: 20 Pulse Ox (%): 96 Assessment And Plan - Plan Physical examination General: Alert and oriented x3, NAD, Neck: No elevated JVD Heart: Heart sounds 1 and 2 normal, regular rhythm, normal rate, no pedal edema Lungs: Clear to auscultation bilaterally, adequate breath sounds bilaterally, no rhonchi or crackles. Abdomen: Soft, nondistended, nontender, normal bowel sounds. Extremities: No tenderness, no deformity Skin: Normal skin turgor, no rash. Neuro: No focal motor deficit. Normal speech. Psychiatry: Normal mood, no agitation. Assessment and plan Hyperkalemia Acute kidney injury on CKD stage IV Status post Kayexalate in the ER Patient diuresed well with IV Lasix. Hyperkalemia resolved Lokelma as needed. Creatinine trended up, plateaued and now trending down. Nephrology is following and managing. IV Lasix discontinued Monitor renal function. Acute on chronic diastolic heart failure Status post IV Lasix. Echocardiogram 02/07 shows normal EF, unremarkable Accelerated Hypertension Blood pressure readings improved Continue home antihypertensives. Continue oral hydralazine. IV Hydralazine as needed for BP spikes. Anemia of chronic kidney disease Iron deficiency Monitor H&H closely No overt bleeding at this time Transfuse as needed for hemoglobin less than 7. Patient started on iron replacement per nephrology. GI/DVT prophylaxis: Heparin. Advanced directive full code
--- NOTE | 2024-02-11 15:09 | P.PN ---
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 In center HD vs PD discussed as well. Pt had some HAY[place], dizziness and nausea yesterday but feels a bit better today 02/10: Pt has been refusing some assuming that they are why he has felt poor in prior days although when talking to him he denies feeling unwell and reports no acute complaints. He denies weakness, dizziness, dyspnea. Spoke again with his son translating about his persistent low GFR state and severe anemia Vitals reviewed in the EMR General: Alert, In no apparent distress, Cooperative HEENT: Atraumatic, Normocephalic Neck: Supple Respiratory: Clear to auscultation bilaterally, Normal air movement Cardiovascular: Regular rate/rhythm mostly Gastrointestinal: Soft and benign, Non-distended, No tenderness, gale present Musculoskeletal: Mild distal edema, No contractures Integumentary: No rashes, No tenderness Neurological: Normal speech, Normal tone, Normal affect Conclusions/Impression: A/P) 1. Stage III ARF with Cr level trending to > 4 mg/dl on lasix diuretics on underlying progressive CKD Stage IV with CKD for some time with GFR lower since late and with sub nephrotic proteinuria on spot urine testing. Neg prior serologic w/u but some concern for intrinsic renal disease but no renal biopsy performed it appears. Has been lost to f/u in the clinic setting for periods but did come in this summer Cr level remains > 4 mg/dl with diuretics held, UOP acceptable, maintain gale for now, making acceptable urine Discussed dialysis planning and if renal function does not stabilize on this admission or pt remains symptomatic, may need to proceed in that direction during this admission. 2. TTE does not show signs of elevated filling pressures, LA is not dilated, BNP just over 1000 but with renal failure difficult to interpret. No pulm edema or effusions, suspended Lasix. Chronic peripheral edema on CCB. 3. Prior renal imaging has not shown any obstructive uropathy issues but given findings of a low density small lesion in the left kidney which is likely a cyst as seen on renal u/s from late 2021, repeat u/s in July showed b/l renal cysts and echogenic kidneys c/w CKD 4. Hyperkalemia, recurrent. Hold REBECCA inhibitors. K better 5. Chronic HTN with CKD, other -trend BP, mod elevated freq. Agree with Hydralazine addition. Checked orthostatic vitals yesterday which were neg 6. Anemia 2nd to CKD and iron deficiency -contributory to symptoms, placed on IV iron series but Hb hovers just over 7 so may consider PRBC transfusion prior to discharge
[2024-02-12 05:22] LABS: Absolute Basophils 0.1 K/uL (0-0.5); Absolute Eosinophils 0.2 K/uL (0-0.5); Absolute Lymphocytes (CBC) 1.2 K/uL (0.7-4.9); Absolute Monocytes 1.1 K/uL (0.1-1.3); Absolute Neutrophil 5.9 K/uL (1.8-8.0); Basophils % 0.9 % (0-1.3); Eosinophils % 2.3 % (0-4.4); Hematocrit 22.8 % (39.6-49.0); Hemoglobin 7.8 g/dL (13.6-17.9); Lymphocytes % 14.1 % (15.3-44.8); MCHC 34.2 g/dL (32.0-36.0); MCV 93.7 fL (80-100); MPV 7.4 fL (7.6-11.3); Monocytes % 12.7 % (3.3-12.3); Nucleated RBC Absolute Count 0.1 (0-0); Nucleated Red Blood Cells % 0.8 % (0-0); Platelets 281 thou/uL (152-406); RBC Red Blood Cell Count 2.43 M/uL (4.33-5.43); Red Cell Distribution Width 15.7 % (12.1-15.2)
[2024-02-12 05:36] LABS: Albumin 2.6 g/dL (3.4-5.0); Anion Gap 12.2 mEq/L (5.0-15.0); Phosphorus 4.8 mg/dL (2.5-4.9); Potassium 4.2 mEq/L (3.5-5.1)
[2024-02-12] MEDS: EPOETIN ALFA-EPBX 10,000 UNIT/ML VIAL SQ SCH (09:00)
[2024-02-12] MEDS: NEPRO SHAKE 237 ML CAN PO SCH (09:00)
--- NOTE | 2024-02-12 09:05 | P.DS ---
Admission Date: 02/07/24 Discharge Date: 02/12/24 Disposition: ROUTINE DISCHARGE Discharge Condition: FAIR Reason for Admission: Generalized weakness Brief History of Present Illness: 78 yrs old Male with past medical history of hypertension, hyperlipidemia, history of cataract, BPH who was brought to ER with generalized weakness Insomnia and leg swelling. He reported a fall 2 weeks ago. Patient noted to have bilateral lower extremity swelling. Patient was assessed in the ER and had a workup with Doppler which was negative for DVT and also CT of the abdomen pelvis which was negative. Blood work showed hyperkalemia. Patient was admitted for further management of hyperkalemia and acute kidney injury on CKD stage II Hospital Course: Patient was admitted to the medical floor and the following medical problems addressed: Hyperkalemia Acute kidney injury on CKD stage IV Status post Kayexalate in the ER Patient diuresed well with IV Lasix. Hyperkalemia resolved His creatinine trended up, plateaued and now trended down slightly. Overall patient's creatinine is elevated above baseline but stable. Patient oral Lasix resumed on discharge. He is asked to follow-up with Dr. Sanchez in the office within 1 week for Lasix dose adjustment. Monitor renal function. Acute on chronic diastolic heart failure Patient was treated briefly with IV Lasix which was later held due to increasing serum creatinine. Echocardiogram 02/07 shows normal EF, unremarkable. Home dose oral Lasix resumed on discharge. Accelerated Hypertension Blood pressure readings were severely Patient antihypertensives were titrated, hydralazine dose was increased to 50 mg twice daily Continued amlodipine. Anemia of chronic kidney disease Iron deficiency Hemoglobin was borderline low but stable. There was no evidence of active bleeding. Patient received a dose of Procrit and a few doses of IV iron Nephrology will follow-up as outpatient for further management. Vital Signs/Physical Exam: Temp Pulse Resp BP Pulse Ox 99.2 F 87 18 172/74 H 97 02/12/24 08:00 02/12/24 08:00 02/12/24 08:00 02/12/24 08:00 02/12/24 08:00 General: Alert, In no apparent distress, Oriented x3 HEENT: Mucous membr. moist/pink Neck: Supple Respiratory: Clear to auscultation bilaterally, Normal air movement Cardiovascular: No edema, Regular rate/rhythm, Normal S1 S2 Gastrointestinal: Normal bowel sounds, Soft and benign, Non-distended, No tenderness Musculoskeletal: No swelling Integumentary: No rashes, No cyanosis Neurological: Normal speech, Normal strength at 5/5 x4 extr Laboratory Data at Discharge: WBC 8.40 thou/uL (4.3-10.9) 02/12/24 04:55 Hgb 7.8 g/dL (13.6-17.9) L D 02/12/24 04:55 Hct 22.8 % (39.6-49.0) L 02/12/24 04:55 Plt Count 281 thou/uL (152-406) 02/12/24 04:55 PT 10.9 SECONDS (9.4-12.5) 02/07/24 18:03 INR 0.97 02/07/24 18:03 Sodium 139 mEq/L (136-145) 02/12/24 04:55 Potassium 4.2 mEq/L (3.5-5.1) 02/12/24 04:55 BUN 61 mg/dL (7-18) H 02/12/24 04:55 Creatinine 4.17 mg/dL (0.70-1.30) H 02/12/24 04:55 Glucose 98 mg/dL (74-106) 02/12/24 04:55 Uric Acid 6.3 mg/dL (3.5-7.2) 02/08/24 04:35 Phosphorus 4.8 mg/dL (2.5-4.9) 02/12/24 04:55 Magnesium 2.4 mg/dL (1.6-2.4) 02/07/24 18:03 Total Bilirubin 0.2 mg/dL (0.2-1.0) 02/08/24 04:35 AST 16 U/L (15-37) 02/08/24 04:35 ALT 31 U/L (16-61) 02/08/24 04:35 Alkaline Phosphatase 96 U/L (45-117) D 02/08/24 04:35 Lipase 357 U/L (13-75) H 02/07/24 18:03 Home Medications: Amlodipine [Norvasc*] 10 mg PO DAILY 07/21/17 Ferrous Sulfate 325 mg PO DAILY 02/07/24 Finasteride 5 mg PO DAILY 02/07/24 Furosemide [Lasix*] 40 mg PO BID 02/07/24 Metoprolol Tartrate 50 mg PO DAILY 02/07/24 Calcitrol [Rocaltrol*] 0.25 mcg PO DAILY #30 cap 02/12/24 Docusate [Colace Cap*] 100 mg PO BID #60 cap 02/12/24 Hydralazine [Apresoline*] 50 mg PO BID #120 tab 02/12/24 Nepro Shake [Nepro*] 240 ml PO DAILY #30 can 02/12/24 Sevelamer Carbonate [Renvela*] 1,600 mg PO TIDWM #180 tab 02/12/24 New Medications: Hydralazine [Apresoline*] 50 mg PO BID #120 tab Docusate [Colace Cap*] 100 mg PO BID #60 cap Nepro Shake [Nepro*] 240 ml PO DAILY #30 can Sevelamer Carbonate [Renvela*] 1,600 mg PO TIDWM #180 tab Calcitrol [Rocaltrol*] 0.25 mcg PO DAILY #30 cap Diet: Renal Activity: Fall precautions Followup: Reji Quesada DO [ACTIVE - CAN ADMIT] - 1 Week CIARRA DE LA ROSA [Primary Care Provider] - 1-2 Weeks Time spent managing pt's care (in minutes): 33
[2024-02-12 12:02] VITALS: BP 151/92; TEMP 98.8
[2024-02-12 12:09] VITALS: O2SAT 95
--- NOTE | 2024-02-12 21:07 | P.PN ---
Date of Service: 02/12/24 Vital Signs Temp Pulse Resp BP Pulse Ox 98.8 F 73 18 151/92 H 95 02/12/24 12:00 02/12/24 12:00 02/12/24 12:00 02/12/24 12:00 02/12/24 12:00 Assessment/ Plan: Nephrology No dyspnea No chest pain No acute events overnight Doing well Vitals, medications, blood work and imaging reviewed in the chart General: In no apparent distress, Oriented x3, Cooperative HEENT: Atraumatic Neck: Supple Respiratory: Crackles/rales Cardiovascular: Regular rate/rhythm, Edema Gastrointestinal: Soft and benign, Non-distended Musculoskeletal: No clubbing, No contractures Integumentary: No rashes, No cyanosis Neurological: Normal speech Urinary: Powers catheter Laboratory Data (last 24 hrs) 02/07/24 02/07/24 02/07/24 18:03 18:03 18:03 WBC 5.60 Hgb 8.3 L Hct 24.8 L Plt Count 259 PT 10.9 INR 0.97 Sodium 138 Potassium 6.0 H BUN 63 H Creatinine 3.87 H Glucose 120 H Magnesium 2.4 Total Bilirubin 0.2 AST 22 ALT 39 Alkaline Phosphatase 121 H Lipase 357 H Imagings Data: [id number] EXAM: CT CHEST, ABDOMEN AND PELVIS WITHOUT CONTRAST CLINICAL INDICATION: Shortness of breath and flank pain. TECHNIQUE: CT chest, abdomen and pelvis was performed, without IV contrast, as per department protocol. Axial, sagittal and coronal reconstructions were obtained. One or more of the following dose reduction techniques were used: Automated exposure control, adjustment of the mA and/or kV according to the patient size, and/or iterative reconstruction. Unless otherwise specified, incidental findings do not require dedicated imaging follow-up.. Oral contrast not given COMPARISON: November 2023 FINDINGS: The lack of intravenous contrast limits the sensitivity of this exam for evaluation of solid visceral organs, vascular structures, and bowel Subcentimeter nodule abutting the right major fissure unchanged likely benign. Minimal right middle lobe opacities unchanged. Left lung is clear No pleural effusion. Small pericardial effusion unchanged No mediastinal or hilar lymphadenopathy. Liver, spleen, pancreas, adrenals and right kidney grossly normal. Small left renal cyst. Small left inguinal hernia No evidence of diverticulitis. Umbilical hernia IMPRESSION: No acute abnormalities displayed [address] History: Cough Comparison: November 2023. Lung bases mild hazy Remainder of the lungs are clear. No significant pleural effusion noted. The heart is moderately enlarged IMPRESSION : Lung bases are mildly hazy probably secondary to overlying soft tissue. Infiltrates can have a similar appearance. PA and lateral chest series may be helpful for further evaluation [address] History: Reason For Study Comparison: July 2003 TECHNIQUE: Complete bilateral duplex sonography of the bilateral lower extremity veins was performed. The examination included compression for vein patency, color Doppler imaging and flow augmentation in response to distal compression of the distal external iliac, common femoral, femoral, popliteal, tibial, and great saphenous veins. Grayscale, color and spectral analysis performed on all vessels COMPARISON: No prior exam. FINDINGS: Duplex sonography testing of the veins of the bilateral lower extremity was performed. Color flow imaging shows all veins to be compressible with [id number] color filling. Pulsatile and phasic flow is present within all lower extremity deep and superficial veins examined. IMPRESSION: No evidence of deep venous thrombosis. [address] Reason for Exam: DIZZINESS Report Status: Signed EXAM: CT brain without contrast HISTORY: Dizziness COMPARISON: November 2003 TECHNIQUE: Multiple contiguous axial images were obtained and a CT of the brain without contrast. Sagittal and coronal reformats were performed. Automated exposure control, adjustment of the mA and/or kV according to patient size, and/or iterative reconstruction. Unless otherwise specified, incidental findings do not require dedicated imaging follow-u FINDINGS: An intracranial bleed is not seen Ventricles are normal caliber No extra-axial fluid collection noted No significant hypodensity within the brain No fluid within the visualized sinuses or mastoids noted. IMPRESSION: No acute intracranial abnormality noted. Conclusions/Impression: Stage I SANTINO likely CRS CKD IV with Proteinuria -No NSAIDs -Hold diuresis at this time HTN with CKD/ CHF -Continue Metoprolol XL 50mg BID -Continue Amlodipine -Hold Losartan and Increase Hydralazine Diastolic CHF, A/C -Daily weight -Continue Lasix -Echocardiogram reviewed Hypoalbuminemia, moderate -Continue Nepro Anemia in chronic illness/ CKD -Monitor H&H -Retacrit X1 -PRBC prn -Arrange for outpt Retacrit CKD MBD HyperPhosphatemia -Continue Ergo and Calcitriol -Continue Renvela Case reviewed with Dr. Moore
== END 2024-02-12 13:13 | disposition home or self-care (01) | DRG 682 ==
LOC: ER 16:31 → ERHOLD 20:56 → 2ND 22:01
PROVIDERS: ADMIT Family Medicine; ATTEND Internal Medicine
PROC: 0T9B70Z Drainage of Bladder with Drainage Device, Via Natural or Artificial Opening (ICD-10-PCS; principal; 2024-02-12)
DX: N17.9 Acute kidney failure, unspecified (principal); I50.43 Acute on chronic combined systolic (congestive) and diastolic (congestive) heart failure; I13.0 Hypertensive heart and chronic kidney disease with heart failure and stage 1 through stage 4 chronic kidney disease, or unspecified chronic kidney disease; E87.20 Acidosis, unspecified; N18.4 Chronic kidney disease, stage 4 (severe); D63.1 Anemia in chronic kidney disease; D50.9 Iron deficiency anemia, unspecified; E87.5 Hyperkalemia; E78.5 Hyperlipidemia, unspecified; G47.00 Insomnia, unspecified; N40.0 Benign prostatic hyperplasia without lower urinary tract symptoms; K21.9 Gastro-esophageal reflux disease without esophagitis; E88.09 Other disorders of plasma-protein metabolism, not elsewhere classified; E83.39 Other disorders of phosphorus metabolism; Z79.899 Other long term (current) drug therapy
CPT/HCPCS: 36415; 51702; 70450; 71045; 71250; 74176; 80048; 80053; 80069; 80076; 81001; 82728; 83540; 83690; 83735; 83880; 84100; 84466; 84484; 84550; 85025; 85610; 86850; 86900; 86901; 93005; 93306; 93970; 94760; 99285; J0360; J0612; J1644; J1940; J2916; J7040; J7613; J7644; Q5106

== ENCOUNTER 2024-09-02 17:32 | Inpatient (IN) | payer OTHER ==
--- OUTSIDE RECORDS SUMMARY | 2024-09-02 17:36 | XMS REPORT | Continuity of Care Document ---
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 Name Role Phone Chrystal Walker Attending Clinician Unavail able Harshil Dunne Attending Clinician Unavailable Payers Payer Name Policy Type Policy Number Effective Date Expirati on Date Source [facility] Dual Complete Choice (Regional PPO D-SNP) [id number] 2022 00:00:00 [facility] [place]ICAID [place] [id number] [facility] MEDICAID [place] [id number] [facility] Problems Condition Name Condition Details Condition Category Status Onset Date Resolution Date Last Treatment Date Treating Clinician Comments Source [id number] BRAEDEN (generaliz ed anxiety disorder) Problem [facility] Chronic kidney disease stage 3B (disorder) Stage 3b chronic kidney disease Problem [facility] [id number] Essential hypertensi on Problem [facility] [id number] Mixed hyperlipid emia Problem [facility] [id number] Non-season al allergic rhinitis due to other allergic trigger Problem [facility] [id number] Benign prostatic hyperplasi a, unspecifie d whether lower urinary tract symptoms present Problem [facility] [id number] Absolute glaucoma of both eyes Problem [facility] [id number] Atopic dermatitis , unspecifie d type Problem [facility] [id number] Anemia of chronic disease Problem [facility] [id number] CKD (chronic kidney disease) stage 4, GFR 15-29 ml/min Problem [facility] [id number] Chronic gout due to renal impairment without tophus, unspecifie d site Problem [facility] [id number] Bilateral hearing loss, unspecifie d hearing loss type Problem [facility] Social History Social Habit Start Date Stop Date Quantity Comments Source History of Tobacco Use [facility] Sex Assigned At [facility] Smoking Status Start Date Stop Date Source Never Smoker [facility] Medications Ordered Medication Name Filled Medication Name Start Date Stop Date Current Medication? Ordering Clinician Indication Dosage Frequency Signature (SIG) Comments Components Source Nitroglycer in 0.4 MG Nitroglycer in 0.4 MG [facility] 6-20 00:00: 00 No Nitroglyce rin 0.4 MG Lokelma 10 GM Lokelma 10 GM 2023-0 6-14 00:00: 00 No QD Lokelma 10 GM Ferrous Sulfate 325 (65 Fe) MG Ferrous Sulfate 325 (65 Fe) MG 0 6-14 00:00: 00 No 1{table t} Ferrous Sulfate 325 (65 Fe) MG Citalopram Hydrobromid e 10 MG Citalopram Hydrobromid e 10 MG 6-11 00:00: 00 No 1{table t} QD Citalopram Hydrobromi de 10 MG Allopurinol 100 MG Allopurinol 100 MG 4-16 00:00: 00 No QD Allopurino l 100 MG Metoprolol Succinate ER [...] 00 No 40mg [facility] Lumigan 0.01 % Lumigan 0.01 [...] Name Observation Time Observation Value Comments S wesly height 2023-10-31 11:20:00 65 [in_i] Commo n [facility] weight 2023-10-31 11:20:00 136 [lb_av] Comm on [facility] temperature 2023-10-31 11:20:00 98.4 [degF] Com [facility] bmi 2023-10-31 11:20:00 22.63 kg/m2 Comm on [facility] oximetry 2023-10-31 11:20:00 98 % Commo n [facility] respiratory rate 2023-10-31 11:20:00 17 /min [facility] blood pressure systolic 2023-10-31 11:20:00 140 mm[Hg] [facility] blood pressure diastolic 2023-10-31 11:20:00 60 mm[Hg] [facility] height 2023-09-05 14:40:00 65 [in_i] Commo n [facility] weight 2023-09-05 14:40:00 131 [lb_av] Comm on [facility] temperature 2023-09-05 14:40:00 98.7 [degF] Com [facility] bmi 2023-09-05 14:40:00 21.8 kg/m2 Commo n [facility] oximetry 2023-09-05 14:40:00 100 % Commo n [facility] respiratory rate 2023-09-05 14:40:00 16 /min Common [facility] blood pressure systolic 2023-09-05 14:40:00 130 mm[Hg] [facility] blood pressure diastolic 2023-09-05 14:40:00 60 mm[Hg] [facility] height 2023-08-08 09:00:00 65 [in_i] Commo n [facility] weight 2023-08-08 09:00:00 135 [lb_av] Comm on [facility] temperature 2023-08-08 09:00:00 98.4 [degF] Com [facility] bmi 2023-08-08 09:00:00 22.46 kg/m2 Comm on [facility] oximetry 2023-08-08 09:00:00 100 % Commo n [facility] respiratory rate 2023-08-08 09:00:00 16 /min [facility] blood pressure systolic 2023-08-08 09:00:00 140 mm[Hg] [facility] blood pressure diastolic 2023-08-08 09:00:00 62 mm[Hg] Common [facility] height 2023-07-18 09:30:00 65 [in_i] Commo n [facility] weight 2023-07-18 09:30:00 131.7 [lb_av] Co mmon [facility] temperature 2023-07-18 09:30:00 98.3 [degF] Com [facility] bmi 2023-07-18 09:30:00 21.91 kg/m2 Comm on [facility] oximetry 2023-07-18 09:30:00 99 % Commo n [facility] respiratory rate 2023-07-18 09:30:00 17 /min [facility] blood pressure systolic 2023-07-18 09:30:00 139 mm[Hg] [facility] blood pressure diastolic 2023-07-18 09:30:00 67 mm[Hg] [facility] height 2023-07-18 09:30:00 65 [in_i] Commo n [facility] weight 2023-07-18 09:30:00 131.7 [lb_av] Co mmon [facility] temperature 2023-07-18 09:30:00 98.3 [degF] Com [facility] bmi 2023-07-18 09:30:00 21.91 kg/m2 Comm on [facility] oximetry 2023-07-18 09:30:00 99 % Commo n [facility] respiratory rate 2023-07-18 09:30:00 17 /min Common [facility] blood pressure systolic 2023-07-18 09:30:00 139 mm[Hg] [facility] blood pressure diastolic 2023-07-18 09:30:00 67 mm[Hg] Common [facility] height 2023-03-06 13:30:00 65 [in_i] Commo n [facility] weight 2023-03-06 13:30:00 137.8 [lb_av] Co mmon [facility] temperature 2023-03-06 13:30:00 98.9 [degF] Com [facility] bmi 2023-03-06 13:30:00 22.93 kg/m2 Comm on [facility] oximetry 2023-03-06 13:30:00 99 % Commo n [facility] blood pressure systolic 2023-03-06 13:30:00 130 mm[Hg] Common [facility] blood pressure diastolic 2023-03-06 13:30:00 60 mm[Hg] [facility] height 2023-01-18 11:00:00 65 [in_i] Commo n [facility] weight 2023-01-18 11:00:00 136.0 [lb_av] Co mmon [facility] temperature 2023-01-18 11:00:00 98.4 [degF] Com [facility] bmi 2023-01-18 11:00:00 22.63 kg/m2 Comm on [facility] oximetry 2023-01-18 11:00:00 98 % Commo n [facility] respiratory rate 2023-01-18 11:00:00 18 /min [facility] blood pressure systolic 2023-01-18 11:00:00 139 mm[Hg] [facility] blood pressure diastolic 2023-01-18 11:00:00 64 mm[Hg] [facility] height 2023-01-03 09:20:00 65 [in_i] Commo n [facility] weight 2023-01-03 09:20:00 135.8 [lb_av] Co mmon [facility] temperature 2023-01-03 09:20:00 98.4 [degF] Com mon [facility] bmi 2023-01-03 09:20:00 22.6 kg/m2 Commo n [facility] oximetry 2023-01-03 09:20:00 99 % Commo n [facility] respiratory rate 2023-01-03 09:20:00 17 /min [facility] blood pressure systolic 2023-01-03 09:20:00 139 mm[Hg] [facility] blood pressure diastolic 2023-01-03 09:20:00 73 mm[Hg] [facility] height 2022-10-19 11:00:00 65 [in_i] Commo n [facility] weight 2022-10-19 11:00:00 139.0 [lb_av] Co mmon [facility] temperature 2022-10-19 11:00:00 98.1 [degF] Com mon [facility] bmi 2022-10-19 11:00:00 23.13 kg/m2 Comm on [facility] oximetry 2022-10-19 11:00:00 98 % Commo n [facility] respiratory rate 2022-10-19 11:00:00 18 /min [facility] blood pressure systolic 2022-10-19 11:00:00 138 mm[Hg] [facility] blood pressure diastolic 2022-10-19 11:00:00 72 mm[Hg] [facility] height 2022-06-21 10:20:00 65 [in_i] Commo n [facility] weight 2022-06-21 10:20:00 137.5 [lb_av] Co mmon [facility] temperature 2022-06-21 10:20:00 97.3 [degF] Com mon [facility] bmi 2022-06-21 10:20:00 22.88 kg/m2 Comm on [facility] oximetry 2022-06-21 10:20:00 99 % Commo n [facility] respiratory rate 2022-06-21 10:20:00 18 /min [facility] blood pressure systolic 2022-06-21 10:20:00 139 mm[Hg] [facility] blood pressure diastolic 2022-06-21 10:20:00 72 mm[Hg] [facility] height 2022-06-21 10:30:00 65 [in_i] Commo n [facility] weight 2022-06-21 10:30:00 137.5 [lb_av] Co mmon [facility] temperature 2022-06-21 10:30:00 97.3 [degF] Com mon [facility] bmi 2022-06-21 10:30:00 22.88 kg/m2 Comm on [facility] oximetry 2022-06-21 10:30:00 99 % Commo n [facility] respiratory rate 2022-06-21 10:30:00 18 /min [facility] blood pressure systolic 2022-06-21 10:30:00 139 mm[Hg] [facility] blood pressure diastolic 2022-06-21 10:30:00 72 mm[Hg] [facility] height 2022-03-01 10:50:00 65 [in_i] Commo n [facility] weight 2022-03-01 10:50:00 138.6 [lb_av] Co mmon [facility] temperature 2022-03-01 10:50:00 97.9 [degF] Com [facility] bmi 2022-03-01 10:50:00 23.06 kg/m2 Comm on [facility] oximetry 2022-03-01 10:50:00 100 % Commo n [facility] respiratory rate 2022-03-01 10:50:00 17 /min [facility] blood pressure systolic 2022-03-01 10:50:00 137 mm[Hg] Common [facility] blood pressure diastolic 2022-03-01 10:50:00 71 mm[Hg] Common [facility] height 2022-02-04 08:50:00 65 [in_i] Commo n [facility] weight 2022-02-04 08:50:00 139.1 [lb_av] Co mmon [facility] temperature 2022-02-04 08:50:00 97.9 [degF] Com [facility] bmi 2022-02-04 08:50:00 23.14 kg/m2 Comm on [facility] oximetry 2022-02-04 08:50:00 100 % Commo n [facility] respiratory rate 2022-02-04 08:50:00 18 /min [facility] blood pressure systolic 2022-02-04 08:50:00 132 mm[Hg] [facility] blood pressure diastolic 2022-02-04 08:50:00 73 mm[Hg] Common [facility] height 2021-10-12 10:00:00 65 [in_i] Commo n [facility] weight 2021-10-12 10:00:00 138.2 [lb_av] Co mmon [facility] temperature 2021-10-12 10:00:00 98.1 [degF] Com mon [facility] bmi 2021-10-12 10:00:00 23 kg/m2 Commo n [facility] oximetry 2021-10-12 10:00:00 99 % Commo n [facility] respiratory rate 2021-10-12 10:00:00 18 /min [facility] blood pressure systolic 2021-10-12 10:00:00 135 mm[Hg] [facility] blood pressure diastolic 2021-10-12 10:00:00 76 mm[Hg] Common [facility] height 2021-06-14 13:20:00 65 [in_i] Commo n [facility] weight 2021-06-14 13:20:00 140.3 [lb_av] Co mmon [facility] temperature 2021-06-14 13:20:00 98.6 [degF] Com mon [facility] bmi 2021-06-14 13:20:00 23.34 kg/m2 Comm on [facility] oximetry 2021-06-14 13:20:00 98 % Commo n [facility] respiratory rate 2021-06-14 13:20:00 18 /min [facility] blood pressure systolic 2021-06-14 13:20:00 136 mm[Hg] [facility] blood pressure diastolic 2021-06-14 13:20:00 72 mm[Hg] [facility] height 2021-06-14 13:20:00 65 [in_i] Commo n [facility] weight 2021-06-14 13:20:00 140.3 [lb_av] Co [facility] temperature 2021-06-14 13:20:00 98.6 [degF] Com mon [facility] bmi 2021-06-14 13:20:00 23.34 kg/m2 Comm on [facility] oximetry 2021-06-14 13:20:00 98 % Commo n [facility] blood pressure systolic 2021-06-14 13:20:00 136 mm[Hg] [facility] blood pressure diastolic 2021-06-14 13:20:00 72 mm[Hg] [facility] Encounters Start Date/Time End Date/Time Encounter Type Admission Type Attending [facility] Care Department Encounter ID Source 2024-01-08 15:33:00 Outpatient Chrystal Walker [facility] [id number] [facility] 2023-12-01 11:19:00 Outpatient Chrystal Walker [facility] [id number] [facility] 2023-11-07 16:02:00 Outpatient Chrystal Walker [facility] [id number] [facility] 2023-08-23 10:32:00 Outpatient Chrystal Walker [facility] [id number] [facility] 2023-07-31 14:11:00 Outpatient Chrystal Walker [facility] [id number] [facility] 2023-07-18 10:40:00 Outpatient Chrystal Walker [facility] [id number] [facility] 2023-06-27 13:29:00 Outpatient Dunne, Harshil [facility] [id number] [facility] 2023-03-06 13:24:00 Outpatient Dunne, Harshil [facility] [id number] [facility] 2023-01-02 13:44:00 Outpatient Dunne, Harshil [facility] [id number] [facility] 2022-06-17 10:26:01 Outpatient Dunne, Harshil [facility] [id number] [facility] 2021-06-16 14:39:24 Outpatient Dunne, Harshil [facility] [id number] [facility] 2021-06-16 14:03:38 Outpatient Dunne, Harshil [facility] [id number] [facility] 2021-06-16 13:44:46 Outpatient Dunne, Harshil [facility] [id number] [facility] 2021-06-16 13:36:15 Outpatient Dunne, Harshil [facility] [id number] [facility] 2021-06-16 13:31:27 Outpatient Dunne, Harshil [facility] [id number] [facility] 2021-06-16 12:56:38 Outpatient Dunne, Harshil [facility] [id number] [facility] 2021-06-16 12:28:06 Outpatient Dunne, Harshil [facility] [id number] [facility] 2021-06-16 12:27:09 Outpatient Dunne, Harshil [facility] [id number] [facility] 2021-06-16 12:25:55 Outpatient Dunne, Harshil [facility] [id number] [facility] 2021-06-16 12:24:00 Outpatient Dunne, Harshil [facility] [id number] [facility] 2021-06-16 12:00:42 Outpatient Dunne, Harshil [facility] [id number] [facility] 2021-06-16 11:45:34 Outpatient Dunne, Harshil [facility] [id number] [facility] 2021-06-16 11:27:29 [facility] [id number] [facility] 2021-06-16 11:23:46 [facility] [id number] [facility] 2021-06-16 11:16:21 Out[facility] [id number] [facility] 2021-06-16 11:12:14 Out[facility] [id number] [facility] 2024-08-06 15:39:24 2024-08-06 15:39:24 Outpatient SFA SFA [id number] Juan J Dow 2024-07-17 13:09:49 2024-07-17 13:09:49 Outpatient SFA SFA [id number] Juan J Dow 2024-06-25 15:03:02 2024-06-25 15:03:02 Outpatient SFA SFA [id number] Juan J Dow 2024-06-24 00:00:00 2024-06-24 00:00:00 (TEL) [facility] [id number] [facility] 2024-05-06 14:20:32 2024-05-06 14:20:32 Outpatient SFA SFA [id number] Juan J Gallegos Victor M 2024-04-15 10:21:16 2024-04-15 10:21:16 Outpatient SFA SFA [id number] Juan J Gallegos Victor M 2024-03-04 16:35:08 2024-03-04 16:35:08 Outpatient SFA SFA [id number] Juan J Gallegos Victor M 2024-02-14 13:05:08 2024-02-14 13:05:08 Outpatient SFA SFA [id number] Juan J Dow 2023-12-29 08:02:02 2023-12-29 08:02:02 Outpatient SFA SFA [id number] Juan J Dow 2023-12-27 13:22:58 2023-12-27 13:22:58 Outpatient SFA SFA [id number] Juan J Dow 2023-12-01 10:42:30 2023-12-01 10:42:30 Outpatient SFA SFA [id number] Juan J Dow 2023-11-29 00:00:00 2023-11-29 00:00:00 (TEL) [facility] [id number] [facility] 2023-11-28 00:00:00 2023-11-28 00:00:00 (TEL) [facility] [id number] [facility] 2023-11-20 00:00:00 2023-11-20 00:00:00 (TEL) [facility] [id number] [facility] 2023-11-09 00:00:00 2023-11-09 00:00:00 (TEL) [facility] [id number] [facility] 2023-11-03 00:00:00 2023-11-03 00:00:00 (TEL) [facility] [id number] [facility] 2023-10-31 00:00:00 2023-10-31 00:00:00 OFFICE VISIT ESTAB PT LEVEL 4 [facility] [id number] [facility] 2023-10-31 00:00:00 2023-10-31 00:00:00 (TEL) [facility] [id number] [facility] 2023-10-30 00:00:00 2023-10-30 00:00:00 (TEL) [facility] [id number] [facility] 2023-10-06 00:00:00 2023-10-06 00:00:00 (TEL) [facility] [id number] [facility] 2023-09-20 00:00:00 2023-09-20 00:00:00 (TEL) [facility] [id number] [facility] 2023-09-13 00:00:00 2023-09-13 00:00:00 (TEL) [facility] [id number] [facility] 2023-09-05 00:00:00 2023-09-05 00:00:00 OFFICE VISIT ESTAB PT LEVEL 4 [facility] [id number] [facility] 2023-08-08 00:00:00 2023-08-08 00:00:00 (HOSP F/U) Hospital Follow Up [facility] [id number] [facility] 2023-08-02 00:00:00 2023-08-02 00:00:00 (TEL) [facility] [id number] [facility] 2023-08-02 00:00:00 2023-08-02 00:00:00 (TEL) [facility] [id number] [facility] 2023-07-18 00:00:00 2023-07-18 00:00:00 OFFICE VISIT NEW PT LEVEL 4 [facility] [id number] [facility] 2023-07-18 00:00:00 2023-07-18 00:00:00 SUB ANNUAL PAT[facility] CHOICE [facility] VIS[facility] [id number] [facility] 2023-06-15 00:00:00 2023-06-15 00:00:00 (TEL) [facility] [id number] [facility] 2023-03-06 00:00:00 2023-03-06 00:00:00 (TEL) [facility] [id number] [facility] 2023-03-06 00:00:00 2023-03-06 00:00:00 OFFICE VISIT ESTAB PT LEVEL 3 [facility] [id number] [facility] 2023-01-18 00:00:00 2023-01-18 00:00:00 OFFICE VISIT ESTAB PT LEVEL 4 [facility] [id number] [facility] 2023-01-03 00:00:00 2023-01-03 00:00:00 OFFICE VISIT ESTAB PT LEVEL 4 [facility] [id number] [facility] 2023-01-02 00:00:00 2023-01-02 00:00:00 (TEL) [facility] [id number] [facility] 2022-10-19 00:00:00 2022-10-19 00:00:00 OFFICE VISIT ESTAB PT LEVEL 4 [facility] [id number] [facility] 2022-07-06 00:00:00 2022-07-06 00:00:00 (TEL) [facility] [id number] [facility] 2022-06-21 00:00:00 2022-06-21 00:00:00 OFFICE VISIT ESTAB PT LEVEL 4 [facility] [id number] [facility] 2022-06-21 00:00:00 2022-06-21 00:00:00 SUB ANNUAL [facility] VIS[facility] [id number] [facility] 2022-06-21 00:00:00 2022-06-21 00:00:00 (TEL) [facility] [id number] [facility] 2022-03-01 00:00:00 2022-03-01 00:00:00 OFFICE VISIT ESTAB PT LEVEL 4 [facility] [id number] [facility] 2022-02-11 00:00:00 2022-02-11 00:00:00 (TEL) [facility] [id number] [facility] 2022-02-04 00:00:00 2022-02-04 00:00:00 OFFICE VISIT EST PT LEVEL 3 [facility] [id number] [facility] 2022-02-03 00:00:00 2022-02-03 00:00:00 (TEL) [facility] [id number] [facility] 2021-10-12 00:00:00 2021-10-12 00:00:00 OFFICE VISIT ESTAB PT LEVEL 4 [facility] [id number] [facility] 2021-07-29 00:00:00 2021-07-29 00:00:00 (TEL) [facility] [id number] [facility] 2021-07-13 00:00:00 2021-07-13 00:00:00 (TEL) [facility] [id number] [facility] 2021-07-05 00:00:00 2021-07-05 00:00:00 (TEL) [facility] [id number] [facility] 2021-06-14 00:00:00 2021-06-14 00:00:00 OFFICE VISIT EST PT LEVEL 3 [facility] [id number] [facility] 2021-06-14 00:00:00 2021-06-14 00:00:00 SUB ANNUAL [facility] VIS[facility] [id number] [facility] 2021-05-24 00:00:00 2021-05-24 00:00:00 (TEL) [facility] [id number] [facility] 2021-05-20 00:00:00 2021-05-20 00:00:00 (TEL) [facility] [id number] [facility] 2021-03-11 00:00:00 2021-03-11 00:00:00 (TEL) [facility] [id number] [facility] 2021-03-08 00:00:00 2021-03-08 00:00:00 (TEL) [facility] [id number] [facility] 2021-02-15 00:00:00 2021-02-15 00:00:00 Outpatient [facility] [id number] [facility] 2021-01-20 00:00:00 2021-01-20 00:00:00 Outpatient [facility] [id number] [facility] 2020-12-16 00:00:00 2020-12-16 00:00:00 Outpatient [facility] [id number] [facility] 2020-12-16 00:00:00 2020-12-16 00:00:00 Outpatient [facility] [id number] [facility] 2020-09-22 00:00:00 2020-09-22 00:00:00 Outpatient [facility] [id number] [facility] 2020-09-22 00:00:00 2020-09-22 00:00:00 Outpatient [facility] [id number] [facility] 2020-07-22 00:00:00 2020-07-22 00:00:00 Outpatient [facility] [id number] [facility] 2020-07-01 00:00:00 2020-07-01 00:00:00 Outpatient [facility] [id number] [facility] 2020-06-24 00:00:00 2020-06-24 00:00:00 Outpatient [facility] [id number] [facility] 2020-06-23 00:00:00 2020-06-23 00:00:00 Outpatient [facility] [id number] [facility] [facility] 2020-06-11 00:00:00 2020-06-11 00:00:00 Outpatient [facility] [id number] [facility] 2020-06-02 00:00:00 2020-06-02 00:00:00 Outpatient [facility] [id number] [facility] 2020-03-18 00:00:00 2020-03-18 00:00:00 Outpatient [facility] [id number] [facility] 2020-03-18 00:00:00 2020-03-18 00:00:00 Outpatient [facility] [id number] [facility] 2020-03-16 00:00:00 2020-03-16 00:00:00 Outpatient [facility]C [id number] [facility] 2020-02-27 00:00:00 2020-02-27 00:00:00 Outpatient [facility] ST[facility] [id number] [facility] 2020-02-24 00:00:00 2020-02-24 00:00:00 Outpatient [facility] ST[facility]C [id number] [facility] 2020-02-17 00:00:00 2020-02-17 00:00:00 Outpatient [facility] ST[facility]C [id number] [facility] 2020-02-12 00:00:00 2020-02-12 00:00:00 Outpatient [facility]C ST[facility]C [id number] [facility] 2020-02-03 09:00:00 2020-02-03 09:00:[address] [facility] [id number] [facility] 2020-01-28 11:00:00 2020-01-28 11:00:[address] [facility] [id number] [facility] 2020-01-20 09:00:00 2020-01-20 09:00:[address] [facility] [id number] [facility] 2020-01-13 08:50:00 2020-01-13 08:50:[address] [facility] [id number] [facility] 2020-01-06 09:00:00 2020-01-06 09:00:00 [facility] [id number] [facility] 2019-12-30 09:00:00 2019-12-30 09:00:[address] [facility] [id number] [facility] 2019-12-23 08:45:00 2019-12-23 08:45:[address] [facility] [id number] [facility] 2019-12-18 11:30:00 2019-12-18 11:30:[address] [facility] [id number] [facility] 2019-12-16 09:00:00 2019-12-16 09:00:00 [facility] [id number] [facility] 2019-12-09 09:00:00 2019-12-09 09:00:[address] [facility] [id number] [facility] 2019-12-02 09:30:00 2019-12-02 09:30:[address] [facility] [id number] [facility] 2019-11-25 09:00:00 2019-11-25 09:00:00 [facility] [id number] [facility] 2019-11-18 09:00:00 2019-11-18 09:00:00 [facility] [id number] [facility] 2019-11-12 11:00:00 2019-11-12 11:00:00 [facility] [id number] [facility] 2019-11-11 10:00:00 2019-11-11 10:00:00 [facility] [id number] [facility] 2019-11-07 11:23:00 2019-11-07 11:23:[address] [facility] [id number] [facility] 2019-11-04 09:00:00 2019-11-04 09:00:00 [facility] [id number] [facility] 2019-10-28 09:00:00 2019-10-28 09:00:00 [facility] [id number] [facility] 2019-10-22 13:45:00 2019-10-22 13:45:[address] [facility] [id number] [facility] 2019-10-15 09:00:00 2019-10-15 09:00:[address] [facility] [id number] [facility] 2019-10-07 09:00:00 2019-10-07 09:00:[address] [facility] [id number] [facility] 2019-09-30 10:00:00 2019-09-30 10:00:00 [facility] [id number] [facility] 2019-09-23 08:08:00 2019-09-23 08:08:00 [facility] [id number] [facility] 2019-09-18 15:45:00 2019-09-18 15:45:00 [facility] [id number] [facility] 2019-09-18 15:45:00 2019-09-18 15:45:00 [facility] [id number] [facility] 2019-08-08 10:00:00 2019-08-08 10:00:00 [facility] [id number] [facility] 2019 16:38:00 2019 16:38:00 [facility] [id number] [facility] 2019 14:22:00 2019 14:22:00 [facility] [id number] [facility] 2019 14:00:00 2019 14:00:00 [facility] [id number] [facility] Results Test Description Test Time Test Comments Results Result Co mments Source LIPID PANEL WITH REFLEX DIRECT [id number] 00:00:00* Test Item Value Reference Range Interpretation Comme nts CALC LDL CHOL (test code = 56496-4) 86 MG/DL See_Comment [Automated messa ge] The [...] normal/abnormal. RISK RATIO LDL/HDL (test code = 01597-2) 2.10 RATIO See_Comment [Automated message] The system [...] POC, COVID 19 Antigen + Flu by milogPO, COVID 19 Antigen + Flu by Adelina
[2024-09-02 19:49] LABS: Absolute Basophils 0.1 K/uL (0-0.5); Absolute Eosinophils 0.1 K/uL (0-0.5); Absolute Monocytes 0.4 K/uL (0.1-1.3); Absolute Neutrophil 3.4 K/uL (1.8-8.0); Basophils % 1.3 % (0-1.3); Eosinophils % 2.4 % (0-4.4); Hematocrit 19.3 % (39.6-49.0); Hemoglobin 7.3 g/dL (13.6-17.9); Lymphocytes % 20.1 % (15.3-44.8); MCH 34.4 pg (27.0-35.0); MCHC 36.6 g/dL (32.0-36.0); MPV 8.9 fL (7.6-11.3); Monocytes % 8.7 % (3.3-12.3); Neutrophils % 67.5 % (41.7-73.7); Platelets 202 thou/uL (152-406); RBC Red Blood Cell Count 2.05 M/uL (4.33-5.43); Red Cell Distribution Width 13.9 % (12.1-15.2)
[2024-09-02] MEDS ORDERED: cloNIDine HCL 0.1 MG TAB ONE (19:50)
[2024-09-02 19:52] LABS: PT Prothrombin Time 11.1 SECONDS (10-13.0); PTT, Activated Partial Thromb 30.6 SECONDS (27.2-37.4); Protime INR 0.97
--- NOTE | 2024-09-02 20:12 | RAD REPORT ---
EXAMINATION: ONE VIEW CHEST XR CLINICAL INDICATION: Male, 79 years old.,general weakness TECHNIQUE: Frontal chest projection is submitted. Examination is limited by patient positioning and t echnique. COMPARISON: 02/07/2024 FINDINGS: The lungs are well inflated and clear. No pneumothorax or sizable effusion. The heart is normal in s ize. Mediastinal contours are unremarkable. IMPRESSION: No acute intrathoracic abnormalities.
[2024-09-02 20:16] LABS: ALT/SGPT 24 U/L (16-61); Albumin 3.7 g/dL (3.4-5.0); Alkaline Phosphatase 87 U/L (45-117); Anion Gap 14.5 mEq/L (5.0-15.0); BUN Blood Urea Nitrogen 117 mg/dL (7-18); Bicarbonate 20 mEq/L (21-32); Bilirubin Total 0.2 mg/dL (0.2-1.0); Globulin 3.6 g/dL (2.3-3.5); Glomerular Filtration Rate 9 ml/min (=/>90); Glucose Level 127 mg/dL (74-106); Magnesium 2.3 mg/dL (1.6-2.4); NT PRO-BNP 3318 pg/mL (<450); Protein, Total 7.3 g/dL (6.4-8.2); Sodium Level 138 mEq/L (136-145)
[2024-09-02 20:19] LABS: AST/SGOT < 10 U/L (15-37); Bilirubin Direct < 0.2 mg/dL (0-0.2)
[2024-09-02 20:27] LABS: Potassium 6.5 mEq/L (3.5-5.1)
--- NOTE | 2024-09-02 20:33 | RAD REPORT ---
EXAM: CT Head Brain Wo Cont HISTORY: DIZZINESS COMPARISON: 02/07/2024 TECHNIQUE: Multiple contiguous axial images were obtained for a CT of the brain without contrast. Sag ittal and coronal reformats were performed. One or more of the following dose reduction techniques were used: Automated exposure control, adjus tment of the mA and kV according to patient size, and iterative reconstruction. Unless otherwise specified, incidental findings do not require dedicated imaging follow-up. FINDINGS: No evidence of hydrocephalus, intracranial hemorrhage, or extra-axial fluid collection. Mild brain atrophy with mild periventricular and deep white matter chronic microvascular ischemic ch anges, stable. The calvarium is intact. The visualized paranasal sinuses and mastoid air cells are essentially clear . IMPRESSION: No evidence of acute intracranial abnormality.
[2024-09-02] MEDS ORDERED: SOD POLYSTYREN SUL 15 GM/60 ML UCUP ONE (20:55)
--- NOTE | 2024-09-02 21:19 | ER ---
Nurse's Notes [facility] Name: Iam Nelson Age: 79 yrs Sex: Male : 1945 Arrival Date: 09/02/2024 Time: 17:32 Bed 13 Private MD: Diagnosis: Hyperkalemia;Hypertensive heart and chronic kidney disease with heart failure and with stage 5 chronic kidney disease, or end stage renal disease;Anemia in chronic kidney disease Presentation: 09/02 18:15 Chief complaint: Patient states: Generalized weakness, dizziness, and headache X2 cm10 weeks. Coronavirus screen: Client denies travel out of the [place] in the last 14 days. Ebola Screen: Patient denies travel to an Ebola-affected area in the 21 days before illness onset. Initial Sepsis Screen: Does the patient meet any 2 criteria? No. Patient's initial sepsis screen is negative. Does the patient have a suspected source of infection? No. Patient's initial sepsis screen is negative. Risk Assessment: Do you want to hurt yourself or someone else? Patient reports no desire to harm self or others. Onset of symptoms is unknown. 18:15 Method Of Arrival: Ambulatory cm10 18:15 Acuity: DORA 3 cm10 Triage Assessment: 18:17 General: Appears in no apparent distress. comfortable, Behavior is calm, cooperative, cm10 appropriate for age. Neuro: No deficits noted. Level of Consciousness is awake, alert, obeys commands, Oriented to person, place, time, situation, Appropriate for age. Respiratory: No deficits noted. Airway is patent Respiratory effort is even, unlabored, Respiratory pattern is regular, symmetrical. 09/03 04:26 Pain: Denies pain. kd3 Historical: - Allergies: 09/02 18:16 No Known Allergies; cm10 - PMHx: 18:16 Cataracts; Hyperlipidemia; Hypertension; inflammed prostate; Kidney disease; cm10 - PSHx: 18:16 cataracts; cm10 - Immunization history:: Adult Immunizations up to date. - Infectious Disease History:: Denies. - Social history:: Smoking status: Patient denies any tobacco usage or history of. Screenin:[address] [facility] ED Fall Risk Assessment (Adult) History of falling in the last 3 months, kd3 including since admission No falls in past 3 months (0 pts) Confusion or Disorientation No (0 pts) Intoxicated or Sedated No (0 pts) Impaired Gait No (0 pts) Mobility Assist Device Used No (0 pt) Altered Elimination No (0 pt) Score/Fall Risk Level 0 - 2 = Low Risk Oriented to surroundings. Abuse screen: Denies threats or abuse. Denies injuries from another. Nutritional screening: No deficits noted. Tuberculosis screening: No symptoms or risk factors identified. Assessment: 20:06 General: Appears in no apparent distress. Behavior is calm, cooperative. kd3 Vital Signs: 18:15 BP 220 / 72; Pulse 56; Resp 18; Temp 98(O); Pulse Ox 100% on R/A; Weight 55.79 kg; Pain cm10 4/10; 20:04 BP 204 / 71; Pulse 54; Resp 18; Pulse Ox 100% on R/A; kd3 20:27 BP 192 / 58; Pulse 50; Resp 14; Pulse Ox 98% on R/A; al5 20:36 BP 188 / 62; Pulse 51; Resp 16; Pulse Ox 100% on R/A; kd3 21:48 BP 203 / 67; Pulse 51; Resp 18; Pulse Ox 100% on R/A; kd3 18:15 Pain Scale: Adult cm10 ED Course: 17:40 Patient arrived in ED. cj3 17:42 Miguelangel Trammell PA is PHCP. cp 17:42 Gabe Alejandre MD is Attending Physician. cp 17:43 All Ferrer MD is Attending Physician. cp 18:16 Triage completed. cm10 18:17 Arm band placed on left wrist. Patient placed in waiting room. cm10 19:25 Radiology exam delayed due to nurse wanting to draw labs first. rs4 19:28 XRAY Chest (1 view) In Process Unspecified. EDMS 19:30 Inserted saline lock: 20 gauge in right antecubital area, using aseptic technique. ha1 Blood collected. Flushed with 10 mL NS. 19:48 Ary Gaviria, RN is Primary Nurse. kd3 19:48 Basic Metabolic Panel Sent. ha1 19:48 CBC with Diff Sent. ha1 19:49 LFT's Sent. ha1 19:49 Magnesium Sent. ha1 19:49 NT PRO-BNP Sent. ha1 19:49 PT-INR Sent. ha1 19:49 Troponin HS Sent. ha1 19:59 CT Head Brain wo Cont In Process Unspecified. EDMS 20:05 Patient has correct armband on for positive identification. kd3 20:14 EKG done, by ED staff, reviewed by Miguelangel HATHAWAY. oe 21:17 Shwetha Clark MD is Hospitalizing Provider. cp 09/03 04:25 No provider procedures requiring assistance completed. Patient admitted, IV remains in kd3 place. 04:26 Provided Education on: medications and hospitalization . kd3 Administered Medications: 09/02 20:04 Drug: cloNIDine PO 0.2 mg PO once Route: PO; kd3 09/03 07:27 Follow up: Response: No adverse reaction bp 09/02 21:47 Drug: Kayexalate PO 30 grams PO once Route: PO; kd3 09/03 07:28 Follow up: Response: No adverse reaction bp 09/02 21:47 Drug: DuoNeb Nebulize (2.5 mg - 0.5 mg) 3 ml Nebulizer once Route: Nebulizer; 3 09/03 07:28 Follow up: Response: No adverse reaction bp 09/02 21:47 Drug: Sodium Bicarbonate IVP 1 amp IVP once; (50 mL); equals 50 mEq Route: IVP; Site: [facility] right antecubital; 09/03 07:27 Follow up: Response: No adverse reaction bp 09/02 21:47 Drug: Calcium Chloride IVP 1 grams IVP once Route: IVP; Site: right antecubital; kd3 09/03 07:27 Follow up: Response: No adverse reaction bp 09/02 21:47 Drug: Furosemide IVP 60 mg IVP once; give over 2 minutes Route: IVP; Site: right [facility] antecubital; 09/03 07:27 Follow up: Response: No adverse reaction bp Medication: 09/02 20:05 VIS not applicable for this client. kd3 Outcome: 21:19 Decision to Hospitalize by Provider. cp 09/03 04:25 Admitted to ER Hold. Please see [facility] for further documentation. kd3 Condition: stable Discharge instructions given to patient, family, Instructed on the need for admit, 13:50 Patient left the ED. ss Signatures: Dispatcher [employer] EDIL Maria C Bach RN RN ss Page, Corey, PA PA cp Nate Arreaga Brian, RN RN bp Ary Gaviria, RN RN kd3 Leola Booker, RN RN ha1 Ce Russell rs4 Liseth Yoder, RN RN cm10 Kaleigh Ronquillo, RN RN al5 Sheela Vidal 3
--- NOTE | 2024-09-02 21:19 | EDPHYS ---
Physician Documentation [facility] Name: Iam Nelson Age: 79 yrs Sex: Male : 1945 Arrival Date: 09/02/2024 Time: 17:32 Bed 13 Private MD: ED Physician All Ferrer HPI: 09/02 18:25 This 79 yrs old Male presents to ER via Ambulatory with complaints of General cp Weakness, Near Syncope. 18:25 The patient's problem is reported as weakness, that is generalized, lightheaded, cp near-syncope, headache. 18:25 Onset: The symptoms/episode began/occurred 2 week(s) ago. Duration: The episode is cp continuous. Associated signs and symptoms: Pertinent negatives: abdominal pain, chest pain, confusion, diarrhea, shortness of breath, vomiting. Patient's baseline: Neuro: alert and fully oriented, Motor: no deficits, Ambulation: walks without assistance, Speech: normal. Historical: - Allergies: 18:16 No Known Allergies; cm10 - PMHx: 18:16 Cataracts; Hyperlipidemia; Hypertension; inflammed prostate; Kidney disease; cm10 - PSHx: 18:16 cataracts; cm10 - Immunization history:: Adult Immunizations up to date. - Infectious Disease History:: Denies. - Social history:: Smoking status: Patient denies any tobacco usage or history of. ROS: 18:30 Cardiovascular: Negative for chest pain, edema, palpitations, cp 18:30 Constitutional: Positive for weight loss, Negative for body aches, chills, fever, poor cp PO intake, 18:30 Eyes: Negative for injury, pain, redness, and discharge, cp 18:30 ENT: Negative for drainage from ear(s), ear pain, sore throat, difficulty swallowing, difficulty handling secretions, 18:30 Respiratory: Negative for cough, shortness of breath, wheezing, 18:30 Abdomen/GI: Negative for abdominal pain, nausea and vomiting, diarrhea, constipation, black/tarry stool, rectal bleeding, 18:30 : Negative for burning with urination, 18:30 Neuro: Positive for dizziness, headache, near syncope, weakness, Negative for altered mental status, 18:30 All other systems are negative, Exam: 18:35 Constitutional: The patient appears in no acute distress, alert, awake, cp non-diaphoretic, non-toxic, well developed, well nourished, 18:35 Head/Face: Normocephalic, atraumatic. cp 18:35 Eyes: Periorbital structures: appear normal, Pupils: equal, round, and reactive to light and accomodation, Conjunctiva: normal, no exudate, no injection, Sclera: no appreciated abnormality, Lids and lashes: appear normal, bilaterally, 18:35 ENT: External ear(s): are unremarkable, Nose: is normal, Mouth: Lips: moist, Oral mucosa: moist, Posterior pharynx: Airway: no evidence of obstruction, patent, erythema, is not appreciated, exudate, is not appreciated, 18:35 Neck: ROM/movement: is normal, is supple, without pain, no range of motions limitations, 18:35 Chest/axilla: Inspection: normal, 18:35 Cardiovascular: Rate: bradycardic, Rhythm: regular, Edema: is not appreciated, JVD: is not appreciated, 18:35 Respiratory: the patient does not display signs of respiratory distress, Respirations: normal, no use of accessory muscles, no retractions, labored breathing, is not present, Breath sounds: are clear throughout, no decreased breath sounds, no stridor, no wheezing, 18:35 Abdomen/GI: Inspection: abdomen appears normal, Bowel sounds: active, all quadrants, Palpation: abdomen is soft and non-tender, in all quadrants, 18:35 Back: pain, is absent, ROM is normal, 18:35 Skin: no rash present. 18:35 Neuro: Orientation: to person, place \T\ time. Mentation: is normal, Cerebellar function: Romberg testing is negative, Motor: moves all fours, strength is normal, Sensation: is normal, Gait: is steady, at a normal pace, without difficulty, 19:35 : Rectal exam: Stool: brown, cp 20:11 ECG was reviewed by the Attending Physician. cp Vital Signs: 18:15 BP 220 / 72; Pulse 56; Resp 18; Temp 98(O); Pulse Ox 100% on R/A; Weight 55.79 kg; Pain cm10 4/10; 20:04 BP 204 / 71; Pulse 54; Resp 18; Pulse Ox 100% on R/A; kd3 20:27 BP 192 / 58; Pulse 50; Resp 14; Pulse Ox 98% on R/A; al5 20:36 BP 188 / 62; Pulse 51; Resp 16; Pulse Ox 100% on R/A; kd3 21:48 BP 203 / 67; Pulse 51; Resp 18; Pulse Ox 100% on R/A; kd3 18:15 Pain Scale: Adult cm10 MDM: 18:20 Medical Screening Exam initiated cp 19:00 Differential diagnosis: CVA, TIA, metabolic disorder, drug effects, anemia, GI bleed. cp 20:45 Data reviewed: vital signs, nurses notes, lab test result(s), EKG, radiologic studies, cp CT scan, plain films, and as a result, I will admit patient. 20:45 Independent interpretation of the following test(s) in the Emergency Department EKG: cp See my EKG interpretation above. 21:20 Management of patient was discussed with the following: Mobile Battery Technician: nephrology, DR aura Cotto, consulted and patient to be admitted to hospitalist, DR Clark. 09/02 21:19 Order name: Type And Screen 09/02 18:21 Order name: Basic Metabolic Panel; Complete Time: 20:42 09/02 20:42 Interpretation: Normal except: K 6.5; CL 110; CO2 20; GLUC 127; BUN 117; CRE 5.76; GFR cp 9. 09/02 18:21 Order name: CBC with Diff; Complete Time: 20:42 09/02 20:42 Interpretation: Normal except: RBC 2.05; HGB 7.3; HCT 19.3; MCHC 36.6. 09/02 18:21 Order name: LFT's; Complete Time: 20:42 09/02 20:42 Interpretation: Normal except: AST < 10; IBILI, CALC 0.0; GLOB 3.6; A/G 1.0. 09/02 18:21 Order name: Magnesium; Complete Time: 20:42 09/02 18:21 Order name: NT PRO-BNP; Complete Time: 20:42 09/02 21:14 Interpretation: Abnormal: NT PRO-BNP 3318. 09/02 18:21 Order name: PT-INR; Complete Time: 20:42 09/02 18:21 Order name: Troponin HS; Complete Time: 20:42 09/02 18:21 Order name: Urinalysis W/Microscopic cp 09/02 18:21 Order name: Ptt, Activated; Complete Time: 20:42 cp 09/02 21:32 Order name: Magnesium EDAR 09/02 21:32 Order name: Thyroid Stimulating Hormone EDAR 09/02 21:32 Order name: CBC with Automated Diff EDAR 09/02 21:32 Order name: CBC with Automated Diff; Complete Time: 09:29 EDMS 09/02 21:32 Order name: Comprehensive Metabolic Panel EDAR 09/02 21:32 Order name: Comprehensive Metabolic Panel; Complete Time: 09:29 EDMS 09/03 00:14 Order name: Glucose, Ancillary Testing; Complete Time: 09:29 EDMS 09/03 02:32 Order name: Potassium; Complete Time: 09:29 EDMS 09/03 05:41 Order name: Magnesium; Complete Time: 09:29 EDMS 09/03 05:41 Order name: Thyroid Stimulating Hormone; Complete Time: 09:29 EDMS 09/03 05:42 Order name: Hemoglobin; Complete Time: 09:29 EDMS 09/03 05:42 Order name: Hematocrit; Complete Time: 09:29 EDMS 09/03 08:11 Order name: Glucose, Ancillary Testing; Complete Time: 09:29 EDMS 09/02 18:21 Order name: XRAY Chest (1 view); Complete Time: 20:42 cp 09/02 18:58 Order name: CT Head Brain wo Cont; Complete Time: 20:42 cp 09/02 21:32 Order name: CONS Physician Consult EDAR 09/02 18:21 Order name: Cardiac monitoring; Complete Time: 19:37 cp 09/02 18:21 Order name: EKG - Nurse/Tech; Complete Time: 20:04 cp 09/02 18:21 Order name: IV Saline Lock; Complete Time: 19:37 cp 09/02 18:21 Order name: Labs collected and sent; Complete Time: 19:37 cp 09/02 18:21 Order name: O2 Per Protocol; Complete Time: 19:37 cp 09/02 18:21 Order name: O2 Sat Monitoring; Complete Time: 19:37 cp EC:11 Rate is 59 beats/min. Rhythm is regular. GA interval is normal. QRS interval is normal. cp QT interval is normal. T waves are Inverted in leads aVL, aVR. Interpreted by me. Reviewed by me. Administered Medications: 20:04 Drug: cloNIDine PO 0.2 mg PO once Route: PO; 3 09/03 07:27 Follow up: Response: No adverse reaction bp 09/02 21:47 Drug: Kayexalate PO 30 grams PO once Route: PO; 3 09/03 07:28 Follow up: Response: No adverse reaction bp 09/02 21:47 Drug: DuoNeb Nebulize (2.5 mg - 0.5 mg) 3 ml Nebulizer once Route: Nebulizer; [facility] 09/03 07:28 Follow up: Response: No adverse reaction bp 09/02 21:47 Drug: Sodium Bicarbonate IVP 1 amp IVP once; (50 mL); equals 50 mEq Route: IVP; Site: [facility] right antecubital; 09/03 07:27 Follow up: Response: No adverse reaction bp 09/02 21:47 Drug: Calcium Chloride IVP 1 grams IVP once Route: IVP; Site: right antecubital; [facility] 09/03 07:27 Follow up: Response: No adverse reaction bp 09/02 21:47 Drug: Furosemide IVP 60 mg IVP once; give over 2 minutes Route: IVP; Site: right [facility] antecubital; 09/03 07:27 Follow up: Response: No adverse reaction bp Disposition: 08:56 Co-signature as Attending Physician, All Ferrer MD I reviewed the patient's care rt provided by the Advanced Practice Provider and agree with the diagnosis and treatment plan. 09/04 06:18 Chart complete. cp Disposition Summary: 09/02/24 21:19 Hospitalization Ordered Notes: Hospitalization Status: Inpatient Admission cp Provider: Shwetha Clark cp Condition: Stable cp Problem: new cp Symptoms: have improved cp Bed/Room Type: Standard cp Location: Telemetry/MedSurg (Inpatient)(09/03/24 12:56) ja1 Room Assignment: 429(09/03/24 12:56) ja1 Diagnosis - Hyperkalemia cp - Hypertensive heart and chronic kidney disease with heart failure and with stage 5 cp chronic kidney disease, or end stage renal disease - Anemia in chronic kidney disease cp Forms: - Medication Reconciliation Form cp - SBAR form cp - Leadership Thank You Letter cp Signatures: Dispatcher [employer] Maria C Pearson RN RN ss Miguelangel Trammell PA PA cp Donal Jordan, RN RN ja1 Ary Gaviria, RN RN kd3 All Ferrer MD MD rt Martinez, Clarissa, RN RN cm10 Ania Pinedo [facility] Rober Florez RN bp Corrections: (The following items were deleted from the chart) 09/02 18:21 18:21 BASIC METABOLIC PANEL+C.LAB.BRZ ordered. EDMS EDMS 18:21 18:21 CBC+H.LAB.BRZ ordered. EDMS EDMS 18:21 18:21 HEPATIC FUNCTION+C.LAB.BRZ ordered. EDMS EDMS 18:21 18:21 MAGNESIUM+C.LAB.BRZ ordered. EDMS EDMS 18:21 18:21 PROBNP+C.LAB.BRZ ordered. EDMS EDMS 18:21 18:21 PROTIME (+INR)+COAG.LAB.BRZ ordered. EDMS EDMS 18:21 18:21 Troponin High Sensitivity+C.LAB.BRZ ordered. EDMS EDMS 18:21 18:21 Urinalysis W/Microscopic+U.LAB.BRZ ordered. EDMS EDMS 18:21 18:21 PTT, ACTIVATED+COAG.LAB.BRZ ordered. EDMS EDMS 18:21 18:21 Chest Single View+RAD.RAD.BRZ ordered. EDMS EDMS 09/03 01:21 01:21 POTASSIUM+C.LAB.BRZ ordered. EDMS EDMS 04:34 09/02 21:19 Telemetry/MedSurg (Inpatient) cp [facility] 09/03 04:34 09/02 21:19 cp [facility] 09/03 05:25 05:25 Hemoglobin+H.LAB.BRZ ordered. EDMS EDMS 05:25 05:25 Hematocrit+H.LAB.BRZ ordered. EDMS EDMS 07:26 04:34 HLD2 [facility] ss 12:56 04:34 [facility] ER HOLD [facility] ja 12:56 07:26 ERHOLD- [facility] 09/04 02:12 09/02 18:25 The patient's problem is reported as weakness, that is generalized, cp lightheaded, near-syncope, cp
[2024-09-02] MEDS ORDERED: ALBUTEROL 2.5 MG/3 ML NEB SOL ONE (21:21)
[2024-09-02] MEDS ORDERED: IPRATROPIUM BROM 0.5MG/2.5ML ONE (21:21)
[2024-09-02] MEDS ORDERED: Calcium Chloride 10% INJ SYR IV ONE (21:22)
[2024-09-02] MEDS ORDERED: FUROSEMIDE 20 MG/ 2ML VIAL ONE (21:22)
[2024-09-02] MEDS ORDERED: FUROSEMIDE 40 MG/4 ML VIAL ONE (21:22)
[2024-09-02] MEDS ORDERED: ACETAMINOPHEN 500 MG TAB PO PRN (21:26)
[2024-09-02] MEDS ORDERED: ALPRAZOLAM 0.25 MG TABLET PO PRN (21:26)
[2024-09-02] MEDS: D10W 250 ML BAG IV ONE (21:38)
--- NOTE | 2024-09-02 21:39 | P.HP ---
Patient History Date of Service: 09/03/24 Reason for admission: Weakness History of Present Illness: This is a pleasant 79-year-old Greenlandic-speaking male with a past medical history of hypertension, CKD presenting with weakness for the last 2 to 3 weeks. He is accompanied with his son who relates most with history. Associated symptoms include lightheadedness. He does endorse a history of chronic kidney disease for which he was supposed to have a port placed for dialysis. He denies fevers, chills, chest pain, shortness of breath. He has never had a heart attack or stroke. He denies any illicit drug use. Allergies No Known Drug Allergies Allergy (Verified 01/09/19 20:46) Unknown Home Medications: Amlodipine [Norvasc*] 10 mg PO DAILY 07/21/17 Ferrous Sulfate 325 mg PO DAILY 02/07/24 Finasteride 5 mg PO DAILY 02/07/24 Furosemide [Lasix*] 40 mg PO BID 02/07/24 Metoprolol Tartrate 50 mg PO DAILY 02/07/24 Calcitrol [Rocaltrol*] 0.25 mcg PO DAILY #30 cap 02/12/24 Docusate [Colace Cap*] 100 mg PO BID #60 cap 02/12/24 Hydralazine [Apresoline*] 50 mg PO BID #120 tab 02/12/24 Nepro Shake [Nepro*] 240 ml PO DAILY #30 can 02/12/24 Sevelamer Carbonate [Renvela*] 1,600 mg PO TIDWM #180 tab 02/12/24 - Past Medical/Surgical History Diabetic: No -: HTN -: HLD -: BPH -: Cataracts -: GERD -: CKD IV/ Proteinuria (Dr. Quesada/Dr. Magallon) Psychosocial/ Personal History: Patient is - Family History Mother -: Cancer Notes: tumor - Social History Alcohol use: No CD- Drugs: No Caffeine use: No Review of Systems General: Weakness Eyes: Unremarkable ENT: Unremarkable Respiratory: Unremarkable Cardiovascular: Unremarkable Gastrointestinal: Unremarkable Genitourinary: Unremarkable Musculoskeletal: Unremarkable Integumentary: Unremarkable Neurological: Unremarkable Lymphatics: Unremarkable Physical Examination - Physical Exam General: In no apparent distress HEENT: Normocephalic Neck: Supple Respiratory: Clear to auscultation bilaterally Cardiovascular: Systolic murmur Capillary refill: <2 Seconds Gastrointestinal: Normal bowel sounds Musculoskeletal: No clubbing Integumentary: No rashes Neurological: Normal gait Lymphatics: No axilla or inguinal lymphadenopathy - Studies Laboratory Data (last 24 hrs) 09/02/24 09/02/24 09/02/24 19:32 19:32 19:32 WBC 5.10 Hgb 7.3 L Hct 19.3 L Plt Count 202 PT 11.1 INR 0.97 APTT 30.6 Sodium 138 Potassium 6.5 H* BUN 117 H Creatinine 5.76 H Glucose 127 H Magnesium 2.3 Total Bilirubin 0.2 AST < 10 L ALT 24 Alkaline Phosphatase 87 Assessment and Plan - Plan Weakness ESRD Hyperkalemia Hypertensive urgency Uremia Elevated BNP Anemia of chronic kidney disease Hyperlipidemia Admit to floor Consult nephrology for dialysis Give insulin and D50 once, continue Kayexalate Recheck potassium later tonight Monitor hemoglobin, type and cross EKG and imaging reviewed Obtain echocardiogram Resume home blood pressure medication Resume Calcitrol and Renvela DVT prophylaxis with SCDs - Advance Directives Does patient have a Living Will: No Does patient have a Durable POA for Healthcare: No
[2024-09-02] MEDS: INSULIN REGULAR (HUMAN) 100 UNIT/ML IV ONE (21:40)
[2024-09-02 23:49] VITALS: BMI 21.7
[2024-09-02] MEDS ORDERED: INSULIN REGULAR (HUMAN) 100 UNIT/ML ONE (23:59)
[2024-09-02] MEDS ORDERED: D10W 250 ML IV ONE (23:59)
[2024-09-03 04:49] LABS: Absolute Eosinophils 0.1 K/uL (0-0.5); Absolute Lymphocytes (CBC) 0.7 K/uL (0.7-4.9); Absolute Monocytes 0.4 K/uL (0.1-1.3); Absolute Neutrophil 2.4 K/uL (1.8-8.0); Basophils % 1.3 % (0-1.3); Eosinophils % 2.8 % (0-4.4); Hematocrit 16.8 % (39.6-49.0); MCH 32.2 pg (27.0-35.0); MCHC 34.2 g/dL (32.0-36.0); MPV 8.7 fL (7.6-11.3); Monocytes % 11.9 % (3.3-12.3); Nucleated Red Blood Cells % 0.1 % (0-0); Platelets 172 thou/uL (152-406); RBC Red Blood Cell Count 1.79 M/uL (4.33-5.43); Red Cell Distribution Width 13.9 % (12.1-15.2)
[2024-09-03 04:58] LABS: Hemoglobin 5.7 g/dL (13.6-17.9)
[2024-09-03 05:40] LABS: ALT/SGPT 22 U/L (16-61); Albumin 2.9 g/dL (3.4-5.0); Albumin/Globulin Ratio 0.9 (1.1-1.8); Alkaline Phosphatase 67 U/L (45-117); Anion Gap 11.7 mEq/L (5.0-15.0); BUN Blood Urea Nitrogen 120 mg/dL (7-18); Bicarbonate 21 mEq/L (21-32); Bilirubin Total 0.2 mg/dL (0.2-1.0); Globulin 3.3 g/dL (2.3-3.5); Glomerular Filtration Rate 10 ml/min (=/>90); Glucose Level 90 mg/dL (74-106); Magnesium 2.4 mg/dL (1.6-2.4); Potassium 5.7 mEq/L (3.5-5.1); Protein, Total 6.2 g/dL (6.4-8.2); Sodium Level 140 mEq/L (136-145)
[2024-09-03 05:41] LABS: AST/SGOT < 10 U/L (15-37)
[2024-09-03 05:42] LABS: Hemoglobin 5.8 g/dL (13.6-17.9)
[2024-09-03] MEDS ORDERED: NA CHLORIDE 0.9% 250 ML IV SCH (06:00)
[2024-09-03] MEDS: FLU (Fluarix Triv) TS24-25(6MOS UP)/PF 45 MCG/0.5 ML Syringe IM ONE (07:30)
[2024-09-03] MEDS: SEVELAMER CARBONATE 800 MG TABLET PO SCH (08:00)
--- NOTE | 2024-09-03 08:12 | P.CNS ---
Date of Consult: 09/03/24 Reason for Consult: SANTINO/ CKD Requesting Physician: Jamar Espinoza Chief Complaint: Weakness History of Present Illness: This is a pleasant 79-year-old Swiss-speaking male with a past medical history of hypertension, CKD presenting with weakness for the last 2 to 3 weeks. He is accompanied with his son who relates most with history. Associated symptoms include lightheadedness. He does endorse a history of chronic kidney disease for which he was supposed to have a port placed for dialysis. He denies fevers, chills, chest pain, shortness of breath. He has never had a heart attack or stroke. He denies any illicit drug use. 18:25 This 79 yrs old Male presents to ER via Ambulatory with complaints of General cp Weakness, Near Syncope. The patient has been in denial regarding possible dialysis and has refused vascular surgery in the past. He also refused a renal bx in the past. He and his son agree to start dialysis today. Allergies No Known Drug Allergies Allergy (Verified 09/03/24 15:04) Unknown Home medications list reviewed: Yes Home Medications: Furosemide [Lasix*] 20 mg PO BID 02/07/24 Gabapentin 100 mg PO BEDTIME 09/03/24 Nebivolol HCl 2.5 mg PO DAILY 09/03/24 - Past Medical/Surgical History Diabetic: No -: HTN -: HLD -: BPH -: Cataracts -: GERD -: CKD V/ Proteinuria (Dr. Quesada/Dr. Magallon) Psychosocial/ Personal History: Patient is - Family History Mother Medical History: Cancer Notes: tumor - Social History Smoking Status: Never smoker Alcohol use: No CD- Drugs: No Caffeine use: No Review of Systems 10-point ROS is otherwise unremarkable General: Weakness, Malaise Physical Examination Temp Pulse Resp BP Pulse Ox 98.5 F 45 L 18 149/58 H 98 09/02/24 23:53 09/03/24 04:00 09/03/24 04:00 09/03/24 04:00 09/03/24 04:00 General: In no apparent distress, Cooperative HEENT: Atraumatic Neck: Supple Respiratory: Normal air movement Cardiovascular: No edema, Regular rate/rhythm Gastrointestinal: Soft and benign, Non-distended Musculoskeletal: No clubbing, No contractures Integumentary: No rashes, No cyanosis Neurological: Normal speech Laboratory Data (last 24 hrs) 09/02/24 09/02/24 09/02/24 19:32 19:32 19:32 WBC 5.10 Hgb 7.3 L Hct 19.3 L Plt Count 202 PT 11.1 INR 0.97 APTT 30.6 Sodium 138 Potassium 6.5 H* BUN 117 H Creatinine 5.76 H Glucose 127 H Magnesium 2.3 Total Bilirubin 0.2 AST < 10 L ALT 24 Alkaline Phosphatase 87 Imagings Data: EXAMINATION: ONE VIEW CHEST XR CLINICAL INDICATION: Male, 79 years old.,general weakness TECHNIQUE: Frontal chest projection is submitted. Examination is limited by patient positioning and technique. COMPARISON: 02/07/2024 FINDINGS: The lungs are well inflated and clear. No pneumothorax or sizable effusion. The heart is normal in size. Mediastinal contours are unremarkable. IMPRESSION: No acute intrathoracic abnormalities. EXAM: CT Head Brain Wo Cont HISTORY: DIZZINESS COMPARISON: 02/07/2024 TECHNIQUE: Multiple contiguous axial images were obtained for a CT of the brain without contrast. Sagittal and coronal reformats were performed. One or more of the following dose reduction techniques were used: Automated exposure control, adjustment of the mA and kV according to patient size, and iterative reconstruction. Unless otherwise specified, incidental findings do not require dedicated imaging follow-up. FINDINGS: No evidence of hydrocephalus, intracranial hemorrhage, or extra-axial fluid collection. Mild brain atrophy with mild periventricular and deep white matter chronic microvascular ischemic changes, stable. The calvarium is intact. The visualized paranasal sinuses and mastoid air cells are essentially clear. IMPRESSION: No evidence of acute intracranial abnormality. [id number] LEFT VENTRICULAR WALL MOTION: NORMAL DOPPLER/COLOR FLOW: GRADE II DIASTOLIC DYSFUNCTION COMMENTS: 1. NORMAL LEFT VENTRICULAR SYSTOLIC FUNCTION, EJECTION FRACTION 60-65%, NORMAL WALL MOTION 2. GRADE II DIASTOLIC DYSFUNCTION 3. 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
[2024-09-03] MEDS ORDERED: NA CHLORIDE 0.9% 1,000 ML IV PRN (08:14)
[2024-09-03] MEDS ORDERED: MANNITOL 25% 12.5 GM/50 ML VIAL IV PRN (08:14)
[2024-09-03] MEDS: SODIUM ZIRCONIUM CYCLOSILICATE 10 GM/PKT PO ONE (08:15)
[2024-09-03] MEDS: EPOETIN ALFA 10,000 UNIT/ML VIAL SQ ONE (08:15)
[2024-09-03] MEDS ORDERED: METOPROLOL TAR 50 MG TAB ONE (08:43)
[2024-09-03] MEDS ORDERED: HYDRALAZINE HCL 25 MG TABLET ONE (08:44)
[2024-09-03] MEDS ORDERED: FUROSEMIDE 40 MG TABLET ONE (08:44)
[2024-09-03] MEDS ORDERED: AMLODIPINE 10 MG TAB ONE (08:44)
[2024-09-03] MEDS ORDERED: DOCUSATE NA 100 MG CAP PO ONE (08:45)
[2024-09-03] MEDS: METOPROLOL TAR 50 MG TAB PO SCH (09:00)
[2024-09-03] MEDS: DOCUSATE NA 100 MG CAP PO SCH (09:00)
[2024-09-03] MEDS: FUROSEMIDE 40 MG TABLET PO SCH (09:00)
[2024-09-03] MEDS: HYDRALAZINE HCL 25 MG TABLET PO SCH (09:00)
[2024-09-03] MEDS ORDERED: ALBUMIN HUMAN 25% 50 ML IV SCH (09:00)
[2024-09-03] MEDS: AMLODIPINE 5 MG TAB PO SCH (09:00)
[2024-09-03] MEDS: CALCITROL 0.25 MCG CAP PO SCH (09:00)
[2024-09-03] MEDS: NEPRO SHAKE 237 ML CAN PO SCH (09:00)
[2024-09-03] MEDS ORDERED: NA CHLORIDE 0.9% 250 ML ONE (09:21)
--- NOTE | 2024-09-03 12:06 | PREOPCON ---
Date of Consultation: 09/03/2024 Reason For Consultation: Patient needs tunneled dialysis catheter. History Of Present Illness: Patient is a 79-year-old gentleman with past medical history of hyperten ulysses and chronic kidney disease, who has increasing weakness over the last 2 to 3 weeks. He was admi tted and Dr. Quesada evaluated him and the patient requires dialysis. He does not have any sore thro at, runny nose, cough, headaches, or dizziness. No shortness of breath. No chest pain. No fever or chills. Review of Systems: Otherwise unremarkable. Past Medical History: Significant for hypertension, hyperlipidemia, chronic kidney disease with prot einuria and BPH. Past Surgical History: Cataract surgery. Allergies: NO ALLERGIES. Social History: The patient does not smoke or drink alcohol. Family History: Noncontributory. Physical Examination: Vital Signs: His vital signs are stable except for slight tachycardia. His pulse rate is in the hig h 40s and into the 50s. He does have systolic elevated blood pressure with diastolic is okay. He is afebrile. General: He is awake and alert. Head and Neck: No masses. No JVD. Throat clear. Neck: Supple. Chest: Clear. Heart: S1, S2. Abdomen: Soft. Extremities: Neurovascularly intact. Neuro: Nonfocal. Laboratory Data: Reviewed. The patient's hemoglobin is low at 5.8 and hematocrit is 17. He is gett ing transfusion. Right now his INR is 0.97. His chemistry reviewed. His potassium was 6.5 yesterda y, is 5.7 today. His BUN is 120, creatinine is 5.6. Assessment: Acute renal failure and hyperkalemia and significant anemia. Recommendation: We will continue with transfusion of the blood. We will take the patient for placem ent of a tunneled dialysis catheter. The patient speaks English, so therefore the risks, benefits, a lternatives will be discussed with his son when he comes back to the hospital and once they have agre ed to the procedure, we will proceed accordingly. /MODL Voice ID: [id number] Report ID: [id number]
--- NOTE | 2024-09-03 12:42 | ECHO ---
HEIGHT: 5 ft 3 in WEIGHT: 123 lb 0 oz DATE OF STUDY: 09/03/[address]: Shwetha Clark MD 2-DIMENSIONAL: YES M.MODE: YES DOPPLER: YES COLOR FLOW: YES TDS: PORTABLE: YES DEFINITY: BUBBLE STUDY: DIAGNOSIS: NEW ONSET CONGESTIVE HEART FAILURE CARDIAC HISTORY: CATHERIZATION: NO SURGERY: NO PROSTHETIC VALVE: NO PACEMAKER: NO MEASUREMENTS (cm) DIASTOLIC (NORMALS) SYSTOLIC (NORMALS) IVSd 1.2 (0.6-1.2) LA Diam 3.0 (1.9-4.0) LVEF 60-65% LVIDd 4.0 (3.5-5.7) LVIDs 2.7 (2.0-3.5) %FS 33% LVPWd 0.9 (0.6-1.2) Ao Diam 3.0 (2.0-3.7) 2 DIMENSIONAL ASSESSMENT: RIGHT ATRIUM: NORMAL LEFT ATRIUM: NORMAL RIGHT VENTRICLE: NORMAL LEFT VENTRICLE: NORMAL TRICUSPID VALVE: MILD TRICUSPID REGURGITATION MITRAL VALVE: SEVERE MITRAL ANNULAR CALCIFICATION, TRACE MITRAL REGURGITATION PULMONIC VALVE: NORMAL AORTIC VALVE: CALCIFIED PERICARDIAL EFFUSION: NONE AORTIC ROOT: NORMAL LEFT VENTRICULAR WALL MOTION: NORMAL DOPPLER/COLOR FLOW: GRADE II DIASTOLIC DYSFUNCTION COMMENTS: 1. NORMAL LEFT VENTRICULAR SYSTOLIC FUNCTION, EJECTION FRACTION 60-65%, NORMAL WALL MOTION 2. GRADE II DIASTOLIC DYSFUNCTION 3. ELEVATED FILLING PRESSURE (RIGHT ATRIAL PRESSURE 10-15 mmHg) TECHNOLOGIST: BRUNO MENDEZ
[2024-09-03] MEDS: HEPARIN 5000 UNIT/ML 1 ML VIAL ONE (14:27)
[2024-09-03] MEDS: BUPIVACAINE 0.5% PF 10 ML VIAL ONE (14:27)
[2024-09-03] MEDS: NA CHLORIDE 0.9% 100 ML ONE (14:28)
[2024-09-03] MEDS ORDERED: LIDOCAINE 2% MPF 5 ML VIAL ONE (14:38)
[2024-09-03] MEDS ORDERED: ONDANSETRON 4 MG/2 ML VIAL ONE (14:38)
[2024-09-03] MEDS ORDERED: propofoL 200 MG/20 ML VIAL IV ONE (14:39)
[2024-09-03] MEDS ORDERED: FENTANYL CITR 100 MCG/2 ML ONE (14:39)
[2024-09-03] MEDS ORDERED: EPHEDRINE SULF 50 MG/ML VIAL ONE (14:42)
[2024-09-03] MEDS ORDERED: GLYCOPYRROLATE 0.2 MG/ML SYR ONE (15:40)
[2024-09-03] MEDS ORDERED: Mastisol Adhesive Liq ONE (15:42)
--- NOTE | 2024-09-03 15:54 | P.OP ---
Date of Service: 09/03/24 Preop diagnosis: Acute renal failure and hyperkalemia Postop diagnosis: Same Procedure performed: Placement of a tunneled dialysis catheter in the right internal jugular vein with the utilization of Doppler and fluoroscopy Surgeon: Brandan Segundo MD Grocery Bagger: Amy JUAREZ Estimated blood loss: Minimal Specimen: None Findings: Normal anatomy Anesthesia: General Complications: None Drains: None Fluids and blood products: Nonapplicable Disposition: Recovery room Operative note: Patient brought to the OR and placed in the supine position. General anesthesia began. Patient prepped and draped in the usual sterile fashion. Marcaine 0.5% infiltrated for postop pain control. Doppler device used to isolate the right internal jugular vein. 18-gauge needle used to access the right internal jugular vein and guidewire passed. Position confirmed with fluoroscopy. A counterincision made on the right anterior chest. Tunneling device used to tunnel the catheter between the 2 wounds. Seldinger technique used. Tip of the catheter placed in the right atrial SVC junction under fluoroscopy. Catheter flushed with heparin and packed with heparin with good blood flow. 3-0 chromic used to approximate subcutaneous tissue and close skin. 3-0 nylon used to secure the catheter to the chest wall. Sterile dressing ap plied. Patient awakened and taken to recovery room in good general condition. Chest x-ray has been ordered. CC: Dr. Quesada's office
--- NOTE | 2024-09-03 15:58 | P.PN ---
Subjective Chief Complaint: Weakness Physical Examination - Vital Signs Temperature: 97.5 F Blood Pressure: 195/66 Pulse: 58 Respirations: 18 Pulse Ox (%): 100 - Studies Laboratory Data (last 24 hrs) 09/02/24 09/02/24 09/02/24 19:32 19:32 19:32 WBC 5.10 Hgb 7.3 L Hct 19.3 L Plt Count 202 PT 11.1 INR 0.97 APTT 30.6 Sodium 138 Potassium 6.5 H* BUN 117 H Creatinine 5.76 H Glucose 127 H Magnesium 2.3 Total Bilirubin 0.2 AST < 10 L ALT 24 Alkaline Phosphatase 87 Assessment & Plan - Advance Directives Does patient have a Living Will: No Does patient have a Durable POA for Healthcare: No
[2024-09-03] MEDS ORDERED: HYDROCODONE/APAP 7.5/325 MG TAB PO PRN (15:59)
--- NOTE | 2024-09-03 16:23 | RAD REPORT ---
EXAM: Fluoroscopy use, Fluoroscopy <1 Hour HISTORY: HD CATH COMPARISON: None FINDINGS: Multiple images were sent to PACS, during a fluoroscopically guided procedure. No radiologi st was involved in protocoling or performance of the study, and no radiologist was present for the duration of the procedure. No interpretation of the saved images will be provided. Total fluoroscopy time: 0.1 minute. IMPRESSION: Documentation of fluoroscopy use as above.
--- NOTE | 2024-09-03 16:34 | RAD REPORT ---
EXAMINATION: ONE VIEW CHEST XR CLINICAL INDICATION: Status post placement of a tunneled dialysis claire TECHNIQUE: Frontal chest projection is submitted. Examination is limited by patient positioning and t echnique. COMPARISON: 09/02/2024 FINDINGS: Right-sided venous catheters tip in the SVC. No pneumothorax is present. Mild interstitial pulmonary edema seen. The heart is upper limit of normal in size. IMPRESSION: No postprocedure pneumothorax.
[2024-09-03 17:29] LABS: Absolute Eosinophils 0.1 K/uL (0-0.5); Absolute Lymphocytes (CBC) 0.8 K/uL (0.7-4.9); Absolute Monocytes 0.3 K/uL (0.1-1.3); Absolute Neutrophil 3.5 K/uL (1.8-8.0); Basophils % 0.8 % (0-1.3); Hematocrit 28.6 % (39.6-49.0); Lymphocytes % 16.2 % (15.3-44.8); MCHC 34.8 g/dL (32.0-36.0); MPV 8.5 fL (7.6-11.3); Nucleated Red Blood Cells % 0.1 % (0-0); Platelets 215 thou/uL (152-406); RBC Red Blood Cell Count 3.22 M/uL (4.33-5.43)
[2024-09-03 19:01] LABS: Hepatitis B Core Ab, Total Nonreactive (Nonreactive); Hepatitis B Surface Ab - Quant 5.78 mIU/mL (<8.0); Hepatitis B surface AG Interp. Nonreactive (Nonreactive)
[2024-09-03 19:03] LABS: HBsAG Nonreactive Report Report
[2024-09-04] MEDS: HYDRALAZINE HCL 20 MG/ML VIAL IV ONE (05:20)
[2024-09-04 06:11] LABS: Absolute Eosinophils 0.1 K/uL (0-0.5); Absolute Lymphocytes (CBC) 0.7 K/uL (0.7-4.9); Absolute Monocytes 0.5 K/uL (0.1-1.3); Absolute Neutrophil 5.3 K/uL (1.8-8.0); Basophils % 0.7 % (0-1.3); Eosinophils % 1.1 % (0-4.4); Hematocrit 27.5 % (39.6-49.0); Hemoglobin 9.6 g/dL (13.6-17.9); Lymphocytes % 10.5 % (15.3-44.8); MCHC 34.8 g/dL (32.0-36.0); MPV 8.7 fL (7.6-11.3); Monocytes % 7.2 % (3.3-12.3); Neutrophils % 80.5 % (41.7-73.7); Percent Reticulocyte Count 0.72 % (0.4-2.05); Platelets 184 thou/uL (152-406); RBC Red Blood Cell Count 3.09 M/uL (4.33-5.43); Red Cell Distribution Width 15.9 % (12.1-15.2)
[2024-09-04 06:56] LABS: Albumin 3.2 g/dL (3.4-5.0); Albumin/Globulin Ratio 0.9 (1.1-1.8); Anion Gap 12.8 mEq/L (5.0-15.0); Bilirubin Total 0.5 mg/dL (0.2-1.0); Globulin 3.6 g/dL (2.3-3.5); Magnesium 1.9 mg/dL (1.6-2.4); Phosphorus 5.1 mg/dL (2.5-4.9); Potassium 4.8 mEq/L (3.5-5.1); Protein, Total 6.8 g/dL (6.4-8.2)
[2024-09-04] MEDS: ONDANSETRON 4 MG/2 ML VIAL IV PRN (11:49)
[2024-09-04] MEDS: EPOETIN ALFA 10,000 UNIT/ML VIAL IV SCH (18:45)
--- NOTE | 2024-09-04 20:47 | P.PN ---
Date of Service: 09/04/24 Vital Signs Temp Pulse Resp BP Pulse Ox 97.9 F 84 18 176/68 H 97 09/04/24 19:53 09/04/24 19:53 09/04/24 19:53 09/04/24 19:53 09/04/24 19:53 Medications Acetaminophen (Acetaminophen 500 Mg Tab) 500 mg PO Q4HP PRN PRN Reason: Pain scale 5-7 (Moderate) Hydrocodone Bitart/Acetaminophen (Hydrocodone/Apap 7.5/325 Mg Tab) 1 tab PO Q4H PRN PRN Reason: Pain scale 8-10 (Severe) Alprazolam (Alprazolam 0.25 Mg Tablet) 0.25 mg PO BEDTIME PRN PRN PRN Reason: INSOMNIA Amlodipine Besylate (Amlodipine 5 Mg Tab) 10 mg PO DAILY [facility] Last Admin: 09/04/24 08:56 Dose: 10 mg Calcitriol (Calcitrol 0.25 Mcg Cap) 0.25 mcg PO DAILY [facility] Last Admin: 09/04/24 08:56 Dose: 0.25 mcg Docusate Sodium (Docusate Na 100 Mg Cap) 100 mg PO BID [facility] Last Admin: 09/04/24 20:27 Dose: 100 mg Enteral Nutritional Formula (Nepro Shake 237 Ml Can) 240 ml PO DAILY [facility] Last Admin: 09/04/24 08:55 Dose: Not Given Epoetin Fredi (Epoetin Fredi 10,000 Unit/Ml Vial) 10,000 unit IV EVERY HD [facility] Last Admin: 09/04/24 18:45 Dose: 10,000 unit Furosemide (Furosemide 40 Mg Tablet) 40 mg PO BIDL [facility] Last Admin: 09/04/24 17:00 Dose: Not Given Heparin Sodium (Porcine) (Heparin 1,000 Unit/Ml Vial) 6,000 unit IV EVERY HD PRN PRN Reason: AFTER EACH Last Admin: 09/04/24 19:08 Dose: 6,000 unit Hydralazine HCl (Hydralazine Hcl 25 Mg Tablet) 50 mg PO BID [facility] Last Admin: 09/04/24 20:27 Dose: 50 mg Sodium Chloride (Sodium Chloride) 250 mls @ 0 mls/hr IV .Q0M [facility] Albumin Human (Albumin 25%) 50 mls @ 100 mls/hr IV EVERY HD [facility] Mannitol (Mannitol 25% 12.5 Gm/50 Ml Vial) 12.5 gm IV EVERY HD PRN PRN Reason: Titrate to SBP (MUST DEFINE) Ondansetron HCl (Ondansetron 4 Mg/2 Ml Vial) 4 mg IV Q6HP PRN PRN Reason: NAUSEA / VOMITING Last Admin: 09/04/24 11:49 Dose: 4 mg Sevelamer Carbonate (Sevelamer Carbonate 800 Mg Tablet) 1,600 mg PO TIDWM YANNICK Last Admin: 09/04/24 17:00 Dose: Not Given Assessment/ Plan: Nephrology No dyspnea No chest pain Feeling better No acute events overnight Vitals, medications, blood work and imaging reviewed in the chart General: In no apparent distress, Cooperative HEENT: Atraumatic Neck: Supple Respiratory: Normal air movement Cardiovascular: No edema, Regular rate/rhythm Gastrointestinal: Soft and benign, Non-distended Musculoskeletal: No clubbing, No contractures Integumentary: No rashes, No cyanosis Neurological: Normal speech Laboratory Data (last 24 hrs) 09/02/24 09/02/24 09/02/24 19:32 19:32 19:32 WBC 5.10 Hgb 7.3 L Hct 19.3 L Plt Count 202 PT 11.1 INR 0.97 APTT 30.6 Sodium 138 Potassium 6.5 H* BUN 117 H Creatinine 5.76 H Glucose 127 H Magnesium 2.3 Total Bilirubin 0.2 AST < 10 L ALT 24 Alkaline Phosphatase 87 Imagings Data: EXAMINATION: ONE VIEW CHEST XR CLINICAL INDICATION: Male, 79 years old.,general weakness TECHNIQUE: Frontal chest projection is submitted. Examination is limited by patient positioning and technique. COMPARISON: 02/07/2024 FINDINGS: The lungs are well inflated and clear. No pneumothorax or sizable effusion. The heart is normal in size. Mediastinal contours are unremarkable. IMPRESSION: No acute intrathoracic abnormalities. EXAM: CT Head Brain Wo Cont HISTORY: DIZZINESS COMPARISON: 02/07/2024 TECHNIQUE: Multiple contiguous axial images were obtained for a CT of the brain without contrast. Sagittal and coronal reformats were performed. One or more of the following dose reduction techniques were used: Automated exposure control, adjustment of the mA and kV according to patient size, and iterative reconstruction. Unless otherwise specified, incidental findings do not require dedicated imaging follow-up. FINDINGS: No evidence of hydrocephalus, intracranial hemorrhage, or extra-axial fluid collection. Mild brain atrophy with mild periventricular and deep white matter chronic microvascular ischemic changes, stable. The calvarium is intact. The visualized paranasal sinuses and mastoid air cells are essentially clear. IMPRESSION: No evidence of acute intracranial abnormality. LEFT VENTRICULAR WALL MOTION: NORMAL DOPPLER/COLOR FLOW: GRADE II DIASTOLIC DYSFUNCTION COMMENTS: 1. NORMAL LEFT VENTRICULAR SYSTOLIC FUNCTION, EJECTION FRACTION 60-65%, NORMAL WALL MOTION 2. GRADE II DIASTOLIC DYSFUNCTION 3. 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 Espinoza
[2024-09-04] MEDS: LOSARTAN POTASSIUM 50 MG TABLET PO SCH (21:00)
[2024-09-04] MEDS: HYDRALAZINE HCL 25 MG TABLET PO SCH (21:00)
[2024-09-05] MEDS: NEBIVOLOL HCL 5 MG TAB PO SCH (08:48)
[2024-09-05 09:48] VITALS: O2SAT 98
[2024-09-05] MEDS: LACTOBACILLUS/ACIDOPHILUS TAB PO SCH (10:30)
[2024-09-05] MEDS: ACETAMINOPHEN 500 MG TAB PO ONE (10:30)
[2024-09-05] MEDS: predniSONE 20 MG TAB PO ONE (10:30)
[2024-09-05] MEDS: METOCLOPRAMIDE 10 MG/2mL INJ IV SCH (10:30)
[2024-09-05] MEDS ORDERED: ALBUMIN HUMAN 25% 100 ML IV SCH (11:00)
[2024-09-05 11:24] LABS: Absolute Lymphocytes (CBC) 0.6 K/uL (0.7-4.9); Absolute Monocytes 0.8 K/uL (0.1-1.3); Absolute Neutrophil 5.8 K/uL (1.8-8.0); Basophils % 0.5 % (0-1.3); Eosinophils % 0.5 % (0-4.4); Hematocrit 28.8 % (39.6-49.0); Lymphocytes % 8.3 % (15.3-44.8); MCH 31.2 pg (27.0-35.0); MCHC 34.7 g/dL (32.0-36.0); MPV 8.8 fL (7.6-11.3); Monocytes % 10.9 % (3.3-12.3); Neutrophils % 79.8 % (41.7-73.7); Nucleated Red Blood Cells % 0.3 % (0-0); Platelets 178 thou/uL (152-406); Red Cell Distribution Width 16.2 % (12.1-15.2)
[2024-09-05 11:49] LABS: Anion Gap 10.8 mEq/L (5.0-15.0); Potassium 3.8 mEq/L (3.5-5.1)
[2024-09-05 16:06] VITALS: BP 155/68; TEMP 97.9
--- NOTE | 2024-09-05 20:13 | P.PN ---
Date of Service: 09/05/24 Vital Signs Temp Pulse Resp BP Pulse Ox 97.9 F 83 16 155/68 H 98 09/05/24 16:00 09/05/24 16:58 09/05/24 16:00 09/05/24 16:58 09/05/24 16:00 Assessment/ Plan: Nephrology No dyspnea No chest pain Headache Poor appetite No acute events overnight Vitals, medications, blood work and imaging reviewed in the chart General: In no apparent distress, Cooperative HEENT: Atraumatic Neck: Supple Respiratory: Normal air movement Cardiovascular: No edema, Regular rate/rhythm Gastrointestinal: Soft and benign, Non-distended Musculoskeletal: No clubbing, No contractures Integumentary: No rashes, No cyanosis Neurological: Normal speech Laboratory Data (last 24 hrs) 09/02/24 09/02/24 09/02/24 19:32 19:32 19:32 WBC 5.10 Hgb 7.3 L Hct 19.3 L Plt Count 202 PT 11.1 INR 0.97 APTT 30.6 Sodium 138 Potassium 6.5 H* BUN 117 H Creatinine 5.76 H Glucose 127 H Magnesium 2.3 Total Bilirubin 0.2 AST < 10 L ALT 24 Alkaline Phosphatase 87 Imagings Data: EXAMINATION: ONE VIEW CHEST XR CLINICAL INDICATION: Male, 79 years old.,general weakness TECHNIQUE: Frontal chest projection is submitted. Examination is limited by patient positioning and technique. COMPARISON: 02/07/2024 FINDINGS: The lungs are well inflated and clear. No pneumothorax or sizable effusion. The heart is normal in size. Mediastinal contours are unremarkable. IMPRESSION: No acute intrathoracic abnormalities. EXAM: CT Head Brain Wo Cont HISTORY: DIZZINESS COMPARISON: 02/07/2024 TECHNIQUE: Multiple contiguous axial images were obtained for a CT of the brain without contrast. Sagittal and coronal reformats were performed. One or more of the following dose reduction techniques were used: Automated exposure control, adjustment of the mA and kV according to patient size, and iterative reconstruction. Unless otherwise specified, incidental findings do not require dedicated imaging follow-up. FINDINGS: No evidence of hydrocephalus, intracranial hemorrhage, or extra-axial fluid collection. Mild brain atrophy with mild periventricular and deep white matter chronic microvascular ischemic changes, stable. The calvarium is intact. The visualized paranasal sinuses and mastoid air cells are essentially clear. IMPRESSION: No evidence of acute intracranial abnormality. LEFT VENTRICULAR WALL MOTION: NORMAL DOPPLER/COLOR FLOW: GRADE II DIASTOLIC DYSFUNCTION COMMENTS: 1. NORMAL LEFT VENTRICULAR SYSTOLIC FUNCTION, EJECTION FRACTION 60-65%, NORMAL WALL MOTION 2. GRADE II DIASTOLIC DYSFUNCTION 3. 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 Espinoza
--- NOTE | 2024-09-11 13:15 | EKG ---
Test Date: 2024-09-02 Test Time: 20:05:43 Field Staff: EARL MEASUREMENT RESULTS: Intervals: Rate: 59 FL: 164 QRSD: 92 QT: 440 QTc: 435 Holcomb: P: 66 FL: 164 QRS: -47 T: 75 INTERPRETIVE STATEMENTS: Sinus bradycardia Left axis deviation Abnormal ECG Compared to ECG 02/08/2024 06:43:43 Sinus rhythm no longer present Electronically Signed On 09-11-24 12:52:12 CDT by Hieu Barnhart
== END 2024-09-05 18:14 | disposition home or self-care (01) | DRG 674 ==
LOC: ER 17:32 → ERHOLD 21:26 → 4TH 09-03 13:37
PROVIDERS: ADMIT Family Medicine; ATTEND Hospitalist
PROC: 30233N1 Transfusion of Nonautologous Red Blood Cells into Peripheral Vein, Percutaneous Approach (ICD-10-PCS; 2024-09-02)
PROC: 5A1D70Z Performance of Urinary Filtration, Intermittent, Less than 6 Hours Per Day (ICD-10-PCS; 2024-09-02)
PROC: 02HV33Z Insertion of Infusion Device into Superior Vena Cava, Percutaneous Approach (ICD-10-PCS; 2024-09-03)
PROC: 0JH63XZ Insertion of Tunneled Vascular Access Device into Chest Subcutaneous Tissue and Fascia, Percutaneous Approach (ICD-10-PCS; principal; 2024-09-03 14:30)
DX: N17.9 Acute kidney failure, unspecified (principal); E87.20 Acidosis, unspecified; I13.2 Hypertensive heart and chronic kidney disease with heart failure and with stage 5 chronic kidney disease, or end stage renal disease; I50.32 Chronic diastolic (congestive) heart failure; N18.6 End stage renal disease; D63.1 Anemia in chronic kidney disease; E87.5 Hyperkalemia; N25.81 Secondary hyperparathyroidism of renal origin; I16.0 Hypertensive urgency; E78.5 Hyperlipidemia, unspecified; K21.9 Gastro-esophageal reflux disease without esophagitis; Z79.899 Other long term (current) drug therapy
CPT/HCPCS: 36415; 70450; 71045; 76000; 80048; 80053; 80076; 82607; 82947; 83540; 83735; 83880; 84100; 84132; 84443; 84484; 85014; 85018; 85025; 85044; 85610; 85730; 86704; 86706; 86803; 86850; 86900; 86901; 86920; 87340; 90935; 93005; 93306; 96374; 96375; 99285; C1752; J0360; J1644; J1815; J1938; J2003; J2405; J2704; J2765; J3010; J7050; J7512; J7613; J7644; P9016; P9047; Q4081

== ENCOUNTER 2024-10-08 16:21 | Observation (INO) | payer OTHER ==
[2024-10-08 17:02] LABS: Absolute Lymphocytes (CBC) 0.4 K/uL (0.7-4.9); Absolute Monocytes 0.4 K/uL (0.1-1.3); Absolute Neutrophil 5.2 K/uL (1.8-8.0); Basophils % 0.5 % (0-1.3); Eosinophils % 0.1 % (0-4.4); Hematocrit 35.3 % (39.6-49.0); Hemoglobin 11.8 g/dL (13.6-17.9); Lymphocytes % 7.3 % (15.3-44.8); MCH 32.3 pg (27.0-35.0); MCHC 33.4 g/dL (32.0-36.0); MCV 96.7 fL (80-100); MPV 7.4 fL (7.6-11.3); Monocytes % 6.2 % (3.3-12.3); Neutrophils % 85.9 % (41.7-73.7); Platelets 179 thou/uL (152-406); RBC Red Blood Cell Count 3.65 M/uL (4.33-5.43); Red Cell Distribution Width 18.1 % (12.1-15.2)
[2024-10-08 17:20] LABS: Anion Gap 11.3 mEq/L (5.0-15.0); Magnesium 1.9 mg/dL (1.6-2.4); Potassium 5.3 mEq/L (3.5-5.1); Troponin High Sensitivity 47.2 pg/mL (<58.9)
[2024-10-08] MEDS ORDERED: ASPIRIN 81 MG CHEWABLE TABLET ONE (18:06)
[2024-10-08 19:09] LABS: Platelet Estimate ADEQ; White Blood Cell Scan OK (OK)
--- NOTE | 2024-10-08 19:09 | RAD REPORT ---
EXAMINATION: ONE VIEW CHEST XR CLINICAL INDICATION: Male, 79 years old.,CHEST PAIN TECHNIQUE: Frontal chest projection is submitted. Examination is limited by patient positioning and t echnique. COMPARISON: 09/03/2024 FINDINGS: Right IJ dialysis catheter in unchanged position. The lungs are well inflated and clear. No pneumoth orax or sizable effusion. The heart is normal in size. Mediastinal contours are unremarkable. IMPRESSION: No acute intrathoracic abnormalities.
[2024-10-08 19:10] LABS: Blood Morphology Comment NOT SEEN (NOT SEEN)
[2024-10-08] MEDS ORDERED: SODIUM ZIRCONIUM CYCLOSILICATE 10 GM/PKT ONE (19:45)
--- NOTE | 2024-10-08 19:49 | EDPHYS ---
Physician Documentation [facility] Name: Iam Nelson Age: 79 yrs Sex: Male : 1945 Arrival Date: 10/08/2024 Time: 16:21 Bed 17 Private MD: ED Physician Ander Perdomo HPI: 10/08 19:46 This 79 yrs old Male presents to ER via Ambulatory with complaints of Chest ms3 Pain. 19:46 79-year-old male with past medical history of cataracts, hyperlipidemia, hypertension, ms3 kidney disease, end-stage renal disease presents to the emergency department for chest pain that occurred after dialysis fistula was placed. Patient states his symptoms have improved. Patient denies any alleviating or inciting factors.. Historical: - Allergies: 16:43 No Known Allergies; db - PMHx: 16:43 Cataracts; Hyperlipidemia; inflammed prostate; Hypertension; kidney disease; End stage db renal disease; - PSHx: 16:43 cataracts; FISTULA (cataracts); db - Immunization history:: Adult Immunizations unknown. - Infectious Disease History:: Denies. - Social history:: Smoking status: Patient denies any tobacco usage or history of. ROS: 19:46 Constitutional: Negative for fever, and chills. ms3 19:46 Respiratory: Negative for shortness of breath, cough, wheezing, and pleuritic chest pain, Abdomen/GI: Negative for abdominal pain, nausea, vomiting, diarrhea, and constipation, MS/Extremity: Negative for injury and deformity, Skin: Negative for injury, rash, and discoloration, 19:46 Cardiovascular: Positive for chest pain, Exam: 19:46 Constitutional: This is a well developed, well nourished patient who is awake, alert, ms3 and in no acute distress. 19:46 Cardiovascular: Regular rate and rhythm with a normal S1 and S2. No gallops, murmurs, or rubs. Normal PMI, no JVD. No pulse deficits. Respiratory: Lungs have equal breath sounds bilaterally, clear to auscultation and percussion. No rales, rhonchi or wheezes noted. No increased work of breathing, no retractions or nasal flaring. Abdomen/GI: Soft, non-tender, with normal bowel sounds. No distension or tympany. No guarding or rebound. No evidence of tenderness throughout. Skin: Warm, dry with normal turgor. Normal color with no rashes, no lesions, and no evidence of cellulitis. 19:46 Cardiovascular: Rate: 20:37 ECG was reviewed by the Attending Physician. ms3 Vital Signs: 16:43 BP 116 / 56; Pulse 55; Resp 16; Pulse Ox 100% ; db 18:18 BP 125 / 56; Pulse 58; Resp 18; Pulse Ox 100% on R/A; Pain 0/10; mb9 19:00 BP 123 / 56; Pulse 56; Resp 17; Pulse Ox 98% ; rg5 20:00 BP 163 / 63; Pulse 56; Resp 18; Pulse Ox 98% ; rg5 21:13 BP 138 / 57; Pulse 59; Resp 18; Pulse Ox 98% ; rg5 18:18 Pain Scale: Adult mb9 MDM: 16:33 Medical Screening Exam initiated ms3 19:45 HEART Score: History: Slightly Suspicious (0), ECG: Normal (0), Age: > or = 65 years ms3 (2), Risk Factors: > or = 3 Risk factors for atherosclerotic disease (2), Troponin: < or = 1 x Normal Limit (0), Total Score = 4. The patient was given aspirin in the Emergency Department. Data reviewed: vital signs, nurses notes, lab test result(s), EKG, radiologic studies, and as a result, I will admit patient. Consideration of Admission/Observation Patient was admitted/placed on observation. Management of patient was discussed with the following: Hospitalist: Dr Marquez. Flame Hardening Machine Setter: Dr Quesada. I considered the following discharge prescriptions or medication management in the emergency department Medications were administered in the Emergency Department. See MAR. Independent interpretation of the following test(s) in the Emergency Department EKG: See my EKG interpretation above. Historians other than the Patient: Daughter/Son: Patient's son. Counseling: I had a detailed discussion with the patient and/or guardian regarding the historical points, exam findings, and any diagnostic results supporting the discharge/admit diagnosis, lab results, radiology results, the need for further work-up and treatment in the hospital. 19:46 Differential diagnosis: abnormal EKG, acute myocardial infarction, Electrolyte ms3 abnormality. 10/08 16:34 Order name: Basic Metabolic Panel; Complete Time: 19:11 ms3 10/08 16:34 Order name: CBC with Diff; Complete Time: 19:11 ms3 10/08 16:34 Order name: Magnesium; Complete Time: 19:11 ms3 10/08 16:34 Order name: Troponin HS; Complete Time: 19:11 ms3 10/08 19:10 Order name: CBC Smear Scan; Complete Time: 19:11 EDMS 10/08 20:53 Order name: CBC with Automated Diff EDMS 10/08 20:53 Order name: CBC with Automated Diff EDMS 10/08 20:53 Order name: Comprehensive Metabolic Panel EDMS 10/08 20:53 Order name: Comprehensive Metabolic Panel EDMS 10/08 20:53 Order name: Troponin High Sensitivity EDMS 10/08 20:53 Order name: Troponin High Sensitivity EDMS 10/08 20:53 Order name: Troponin High Sensitivity EDMS 10/08 20:53 Order name: Troponin High Sensitivity EDMS 10/08 16:34 Order name: XRAY Chest (1 view); Complete Time: 19:11 ms3 10/08 16:34 Order name: EKG; Complete Time: 16:34 ms3 10/08 16:34 Order name: Cardiac monitoring; Complete Time: 16:56 ms3 10/08 16:34 Order name: EKG - Nurse/Tech; Complete Time: 16:56 ms3 10/08 16:34 Order name: IV Saline Lock; Complete Time: 16:56 ms3 10/08 16:34 Order name: Labs collected and sent; Complete Time: 16:56 ms3 10/08 16:34 Order name: O2 Per Protocol; Complete Time: 16:56 ms3 10/08 16:34 Order name: O2 Sat Monitoring; Complete Time: 16:56 ms3 EC:37 Rate is 56 beats/min. Left axis deviation noted. SC interval is normal. QRS interval is ms3 normal. Clinical impression: Sinus bradycardia. Interpreted by me. Reviewed by me. Administered Medications: 18:14 Drug: Aspirin PO Chewable Tablet 324 mg PO once; 81 mg tablets x 4 Route: PO; mb9 18:40 Follow up: Response: No adverse reaction mb9 19:55 Drug: Lokelma Powder 10 grams PO once Route: PO; rg5 21:08 Follow up: Response: No adverse reaction rg5 Disposition Summary: 10/08/24 19:48 Hospitalization Ordered Notes: Hospitalization Status: Observation ms3 Provider: Chava Marquez ms3 Location: Telemetry/MedSurg (observation) ms3 Condition: Stable ms3 Problem: new ms3 Symptoms: are unchanged ms3 Bed/Room Type: Standard ms3 Room Assignment: 406(10/08/24 21:02) Diagnosis - Chest pain, unspecified ms3 - Hyperkalemia ms3 - End stage renal disease ms3 Forms: - Medication Reconciliation Form ms3 - SBAR form ms3 - Leadership Thank You Letter ms3 Signatures: Dispatcher [employer] Tracey Coats, RN RN Ander Gastelum DO DO ms3 Rosario Bull RN RN db Brittney Neely RN RN mb9 Yovanny Holloway RN RN rg5 Corrections: (The following items were deleted from the chart) 20:39 20:37 Rate is 56 beats/min. Left axis deviation noted. SC interval is normal. QRS ms3 interval is normal. Clinical impression: NSR w/ Non-specific ST/T Changes. Interpreted by me. Reviewed by me. ms3 21:02 19:48 ms3 kl
--- NOTE | 2024-10-08 19:49 | ER ---
Nurse's Notes [facility] Name: Iam Nelson Age: 79 yrs Sex: Male : 1945 Arrival Date: 10/08/2024 Time: 16:21 Bed 17 Private MD: Diagnosis: Chest pain, unspecified;Hyperkalemia;End stage renal disease Presentation: 10/08 16:43 Chief complaint: Patient states: CHEST PAIN STARTED \T\ 1330. DIALYSIS FISTULA PLACEMENT db TO RIGHT ARM TODAY. LAST DIALYSIS YESTERDAY. DENIES PAIN AT THIS MOMENT. Coronavirus screen: Client denies travel out of the [place] in the last 14 days. At this time, the client does not indicate any symptoms associated with coronavirus-19. Ebola Screen: Patient negative for fever greater than or equal to 101.5 degrees Fahrenheit, and additional compatible Ebola Virus Disease symptoms Patient denies exposure to infectious person. Patient denies travel to an Ebola-affected area in the 21 days before illness onset. No symptoms or risks identified at this time. Initial Sepsis Screen: Does the patient meet any 2 criteria? No. Patient's initial sepsis screen is negative. Does the patient have a suspected source of infection? No. Patient's initial sepsis screen is negative. Risk Assessment: Do you want to hurt yourself or someone else? Patient reports no desire to harm self or others. Onset of symptoms was October 08, 2024. 16:43 Method Of Arrival: Ambulatory db 16:43 Acuity: DORA 2 db Triage Assessment: 16:43 General: Appears in no apparent distress. comfortable, Behavior is calm, cooperative. db Historical: - Allergies: 16:43 No Known Allergies; db - PMHx: 16:43 Cataracts; Hyperlipidemia; inflammed prostate; Hypertension; kidney disease; End stage db renal disease; - PSHx: 16:43 cataracts; FISTULA (cataracts); db - Immunization history:: Adult Immunizations unknown. - Infectious Disease History:: Denies. - Social history:: Smoking status: Patient denies any tobacco usage or history of. Screenin:18 [facility] ED Fall Risk Assessment (Adult) History of falling in the last 3 months, mb9 including since admission No falls in past 3 months (0 pts) Confusion or Disorientation No (0 pts) Intoxicated or Sedated No (0 pts) Impaired Gait No (0 pts) Mobility Assist Device Used No (0 pt) Altered Elimination No (0 pt) Score/Fall Risk Level 0 - 2 = Low Risk Oriented to surroundings, Maintained a safe environment, Educated pt \T\ family on fall prevention, incl call for assistance when getting out of bed. Abuse screen: Denies threats or abuse. Nutritional screening: No deficits noted. Tuberculosis screening: No symptoms or risk factors identified. Assessment: 18:14 General: Appears in no apparent distress. Behavior is calm, cooperative. mb9 18:17 Pain: Denies pain. Neuro: Bernard Agitation-Sedation Scale (RASS): 0 - Alert and Calm mb9 Level of Consciousness is awake, alert, obeys commands, Oriented to person, place, time, situation, Appropriate for age. Cardiovascular: Denies chest pain, Heart tones S1 S2 present Patient's skin is warm and dry. Respiratory: Airway is patent Respiratory effort is even, unlabored, Respiratory pattern is regular, symmetrical. GI: Abdomen is round non-distended. : No signs and/or symptoms were reported regarding the genitourinary system. EENT: No signs and/or symptoms were reported regarding the EENT system. Derm: Skin is pink, warm \T\ dry. 19:00 General: Appears in no apparent distress. comfortable, Behavior is calm, cooperative, rg5 appropriate for age. Pain: Denies pain. Neuro: Level of Consciousness is awake, alert, obeys commands, Oriented to person, place, time, situation. Cardiovascular: Patient's skin is warm and dry. Respiratory: Airway is patent Respiratory effort is even, unlabored, Respiratory pattern is regular, symmetrical. GI: Abdomen is round non-distended. : No signs and/or symptoms were reported regarding the genitourinary system. EENT: No signs and/or symptoms were reported regarding the EENT system. Derm: Skin is intact, Skin is dry, Skin is normal, Skin temperature is warm. Musculoskeletal: Circulation, motion, and sensation intact. Range of motion: intact in all extremities. 20:00 Reassessment: No changes from previously documented assessment. Patient and/or family rg5 updated on plan of care and expected duration. Pain level reassessed. Patient is alert, oriented x 3, equal unlabored respirations, skin warm/dry/pink. 21:36 Reassessment: No changes from previously documented assessment. Patient and/or family rg5 updated on plan of care and expected duration. Pain level reassessed. Patient is alert, oriented x 3, equal unlabored respirations, skin warm/dry/pink. Patient states symptoms have improved. Vital Signs: 16:43 BP 116 / 56; Pulse 55; Resp 16; Pulse Ox 100% ; db 18:18 BP 125 / 56; Pulse 58; Resp 18; Pulse Ox 100% on R/A; Pain 0/10; mb9 19:00 BP 123 / 56; Pulse 56; Resp 17; Pulse Ox 98% ; rg5 20:00 BP 163 / 63; Pulse 56; Resp 18; Pulse Ox 98% ; rg5 21:13 BP 138 / 57; Pulse 59; Resp 18; Pulse Ox 98% ; rg5 18:18 Pain Scale: Adult mb9 ED Course: 16:24 Patient arrived in ED. al6 16:31 Ander Perdomo DO is Attending Physician. ms3 16:43 Arm band placed on Patient placed in waiting room. db 16:56 Basic Metabolic Panel Sent. bc6 16:56 CBC with Diff Sent. bc6 16:56 Magnesium Sent. bc6 16:56 Troponin HS Sent. bc6 16:56 Initial lab(s) drawn, by me, sent to lab. Inserted saline lock: 22 gauge in left bc6 forearm, using aseptic technique. Blood collected. Flushed with 10 mL NS. 17:04 Triage completed. db 17:13 Radiology exam delayed due to CALLED FOR PT TWICE, NO ANSWER IN ER LOBBY. az 18:05 XRAY Chest (1 view) In Process Unspecified. EDMS 18:09 Brittney Neely, JEREMY is Primary Nurse. mb9 18:17 Placed in gown. Bed in low position. Call light in reach. Side rails up X 1. Provided mb9 Education on: press call light if needing anything. Client placed on continuous cardiac and pulse oximetry monitoring. NIBP monitoring applied. mastic worker on. Door closed. Noise minimized. Warm blanket given. Pillow given. 18:18 No provider procedures requiring assistance completed. mb9 19:48 Chava Marquez MD is Hospitalizing Provider. ms3 20:47 Patient admitted, IV remains in place. intact, No redness/swelling at site. rg5 21:00 Assist provider with laceration repair on right hand that was between 2.6 to 7.5 cm rg5 using sutures. Set up tray. Performed by Oz Mercedes MD Dressed with 4X4s, Patient tolerated. Administered Medications: 18:14 Drug: Aspirin PO Chewable Tablet 324 mg PO once; 81 mg tablets x 4 Route: PO; mb9 18:40 Follow up: Response: No adverse reaction mb9 19:55 Drug: Lokelma Powder 10 grams PO once Route: PO; rg5 21:08 Follow up: Response: No adverse reaction rg5 Medication: 18:18 VIS not applicable for this client. mb9 Outcome: 19:48 Decision to Hospitalize by Provider. ms3 20:47 Admitted to ER Hold. Please see [facility] for further documentation. rg5 20:47 Condition: stable 20:47 Instructed on the need for admit, 22:21 Patient left the ED. rg5 Signatures: Dispatcher [employer] EDMS Sarah Wilson Marcus, DO DO ms3 Rosario Bull, RN RN Brittney Baez RN RN mb9 Glory Gonzalez6 Yovanny Holloway RN RN rg5 Ligia Gamboa6 Corrections: (The following items were deleted from the chart) 18:17 18:14 General: Appears in no apparent distress. Behavior is calm, cooperative, mb9 mb9
[2024-10-08] MEDS ORDERED: ONDANSETRON 4 MG/2 ML VIAL IV PRN (20:49)
[2024-10-08] MEDS ORDERED: ACETAMINOPHEN 325 MG TABLET PO PRN (20:49)
--- NOTE | 2024-10-08 20:49 | P.HP ---
Certification for Inpatient Patient admitted to: Observation With expected LOS: <2 Midnights Practitioner: I am a practitioner with admitting privileges, knowledge of patient current condition, hospital course, and medical plan of care. Services: Services provided to patient in accordance with Admission requirements found in Title 42 Section 412.3 of the Code of Federal Regulations Patient History Date of Service: 10/09/24 Reason for admission: Chest Pain History of Present Illness: 79 yrs old Male with past medical history of hypertension, hyperlipidemia ESRD on dialysis, history of cataract, BPH was brought to ER with chest discomfort. Patient developed chest pain that occurred after dialysis fistula was placed. Located retrosternally radiating to the left arm . Denies any shortness of breath. No fever or chills. No nausea vomiting or diarrhea. No dizziness Patient was assessed in the ER and is admitted for further management of chest pain rule out ACS Allergies No Known Drug Allergies Allergy (Verified 09/03/24 15:04) Unknown Home medications list reviewed: Yes Home Medications: Gabapentin 100 mg PO BEDTIME 09/03/24 Hydrocodone 7.5/APAP 325 [[place] 7.5/325 mg*] 1 tab PO Q12H PRN #20 tab 09/05/24 Megestrol [Megace] 10 ml PO BID #100 ml 09/05/24 Nepro Shake [Nepro*] 240 ml PO DAILY #30 can 09/05/24 Sevelamer Carbonate [Renvela*] 1,600 mg PO TIDWM #180 tab 09/05/24 Amlodipine [Norvasc*] 10 mg PO DAILY 10/08/24 Bimatoprost [Lumigan] 1 drop EACH EYE BEDTIME 10/08/24 Olmesartan Medoxomil [Benicar] 20 mg PO BEDTIME 10/08/24 cloNIDine HCL [Clonidine HCl] 0.1 mg PO BID 10/08/24 - Past Medical/Surgical History Diabetic: No Past Medical History: Reviewed- Non-Contributory -: HTN -: HLD -: BPH -: Cataracts -: GERD -: CKD V/ Proteinuria (Dr. Quesada/Dr. Magallon) Past Surgical History: Reviewed- Non-Contributory Psychosocial/ Personal History: Patient is - Family History Mother -: Cancer Notes: tumor - Social History Smoking Status: Never smoker Alcohol use: No CD- Drugs: No Caffeine use: No Review of Systems 10-point ROS is otherwise unremarkable Physical Examination - Vital Signs Temperature: 98.2 F Blood Pressure: 116/56 Pulse: 78 Respirations: 18 Pulse Ox (%): 94 - Physical Exam General: Alert, In no apparent distress, Oriented x3 HEENT: Atraumatic, Normocephalic Neck: Supple Respiratory: Clear to auscultation bilaterally, Normal air movement Cardiovascular: Regular rate/rhythm, Normal S1 S2 Capillary refill: <2 Seconds Gastrointestinal: Soft and benign, W/out hepatosplenomegaly Musculoskeletal: No clubbing, No swelling Integumentary: No rashes, No breakdown Neurological: Normal strength at 5/5 x4 extr, Cranial nerves 3-12 intact, Normal reflexes 2+ Lymphatics: No axilla or inguinal lymphadenopathy - Studies Laboratory Data (last 24 hrs) 10/08/24 10/08/24 16:55 16:55 WBC 6.00 Hgb 11.8 L Hct 35.3 L Plt Count 179 Sodium 136 Potassium 5.3 H BUN 34 H Creatinine 5.34 H Glucose 212 H Magnesium 1.9 Assessment and Plan - Plan Chest pain rule out ACS Will trend cardiac enzymes Will monitor telemetry Started on aspirin and statin EKG did not show any acute changes suggestive of ischemia Patient denies any chest pain at the time of interview Will get an echocardiogram Cardiology consult Hyperkalemia Antihyperkalemic measures Monitor closely on telemetry Hypertension Antihypertensives titrated Continue home medications and titrate as needed Hyperlipidemia Continue statin ESRD Monitor renal parameters Electrolytes monitor and replace accordingly Nephrology consulted Diabetes Insulin sliding scale Accu-Chek before every meal and at bedtime GI/DVT prophylaxis Advanced directive full code Discharge Plan: Home Plan to discharge in: 48 Hours - Advance Directives Does patient have a Living Will: No Does patient have a Durable POA for Healthcare: No - Code Status/Comfort Care Code Status: Full Code Time Spent Managing Pts Care (In Minutes): 48
--- OUTSIDE RECORDS SUMMARY | 2024-10-08 21:20 | XMS REPORT | Continuity of Care Document ---
Author Name Unknown Address [address] [place] [address] Organization [facility] [place] Address [address] [place] [address] Care Team Providers Care Engineering Aid Name Role Phone Chrystal Walker Attending Clinician Unavail able Harshil Dunne Attending Clinician Unavailable Payers Payer Name Policy Type Policy Number Effective Date Expirati on Date Source [facility] Dual Complete Choice (Regional PPO D-SNP) [id number] 2022 00:00:00 [facility] [place] [id number] [facility] [place]ICAID [place] [id number] [facility] Problems Condition Name Condition Details Condition Category Status Onset Date Resolution Date Last Treatment Date Treating Clinician Comments Source 20071301 BRAEDEN (generaliz ed anxiety disorder) Problem [facility] Chronic kidney disease stage 3B (disorder) Stage 3b chronic kidney disease Problem [facility] [id number] Essential hypertensi on Problem [facility] [id number] Mixed hyperlipid emia Problem [facility] [id number] Non-season al allergic rhinitis due to other allergic trigger Problem [facility] [id number] Benign prostatic hyperplasi a, unspecifie d whether lower urinary tract symptoms present Problem [facility] [id number] Absolute glaucoma of both eyes Problem [facility] [id number] Atopic dermatitis , unspecifie d type Problem [facility] [id number] Anemia of chronic disease Problem [facility] [id number] CKD (chronic kidney disease) stage 4, GFR 15-29 ml/min Problem [facility] [id number] Chronic gout due to renal impairment without tophus, unspecifie d site Problem [facility] [id number] Bilateral hearing loss, unspecifie d hearing loss type Problem [facility] Social History Social Habit Start Date Stop Date Quantity Comments Source History of Tobacco Use [facility] Sex Assigned At [facility] Smoking Status Start Date Stop Date Source Never Smoker [facility] Medications Ordered Medication Name Filled Medication Name Start Date Stop Date Current Medication? Ordering Clinician Indication Dosage Frequency Signature (SIG) Comments Components Source Nitroglycer in 0.4 MG Nitroglycer in 0.4 MG [facility] 6-20 00:00: 00 No Nitroglyce rin 0.4 [...] 00 No 40mg [facility] Lumigan 0.01 % Lumigan 0.01 [...] height 2023-10-31 11:20:00 65 [in_i] Commo n [facility] weight 2023-10-31 11:20:00 136 [lb_av] Comm on [facility] temperature 2023-10-31 11:20:00 98.4 [degF] Com [facility] bmi 2023-10-31 11:20:00 22.63 kg/m2 Comm on [facility] oximetry 2023-10-31 11:20:00 98 % Commo n [facility] respiratory rate 2023-10-31 11:20:00 17 /min [facility] blood pressure systolic 2023-10-31 11:20:00 140 mm[Hg] [facility] blood pressure diastolic 2023-10-31 11:20:00 60 mm[Hg] [facility] height 2023-09-05 14:40:00 65 [in_i] Commo n [facility] weight 2023-09-05 14:40:00 131 [lb_av] Comm on [facility] temperature 2023-09-05 14:40:00 98.7 [degF] Com [facility] bmi 2023-09-05 14:40:00 21.8 kg/m2 Commo n [facility] oximetry 2023-09-05 14:40:00 100 % Commo n [facility] respiratory rate 2023-09-05 14:40:00 16 /min [facility] blood pressure systolic 2023-09-05 14:40:00 130 mm[Hg] [facility] blood pressure diastolic 2023-09-05 14:40:00 60 mm[Hg] [facility] height 2023-08-08 09:00:00 65 [in_i] Commo n [facility] weight 2023-08-08 09:00:00 135 [lb_av] Comm on [facility] temperature 2023-08-08 09:00:00 98.4 [degF] Com [facility] bmi 2023-08-08 09:00:00 22.46 kg/m2 Comm on [facility] oximetry 2023-08-08 09:00:00 100 % Commo n [facility] respiratory rate 2023-08-08 09:00:00 16 /min [facility] blood pressure systolic 2023-08-08 09:00:00 140 mm[Hg] [facility] blood pressure diastolic 2023-08-08 09:00:00 62 mm[Hg] Common [facility] height 2023-07-18 09:30:00 65 [in_i] Commo n [facility] weight 2023-07-18 09:30:00 131.7 [lb_av] Co mmon [facility] temperature 2023-07-18 09:30:00 98.3 [degF] Com [facility] bmi 2023-07-18 09:30:00 21.91 kg/m2 Comm on [facility] oximetry 2023-07-18 09:30:00 99 % Commo n [facility] respiratory rate 2023-07-18 09:30:00 17 /min [facility] blood pressure systolic 2023-07-18 09:30:00 139 mm[Hg] [facility] blood pressure diastolic 2023-07-18 09:30:00 67 mm[Hg] [facility] height 2023-07-18 09:30:00 65 [in_i] Commo n [facility] weight 2023-07-18 09:30:00 131.7 [lb_av] Co mmon [facility] temperature 2023-07-18 09:30:00 98.3 [degF] Com [facility] bmi 2023-07-18 09:30:00 21.91 kg/m2 Comm on [facility] oximetry 2023-07-18 09:30:00 99 % Commo n [facility] respiratory rate 2023-07-18 09:30:00 17 /min [facility] blood pressure systolic 2023-07-18 09:30:00 139 mm[Hg] [facility] blood pressure diastolic 2023-07-18 09:30:00 67 mm[Hg] Common [facility] height 2023-03-06 13:30:00 65 [in_i] Commo n [facility] weight 2023-03-06 13:30:00 137.8 [lb_av] Co mmon [facility] temperature 2023-03-06 13:30:00 98.9 [degF] Com [facility] bmi 2023-03-06 13:30:00 22.93 kg/m2 Comm on [facility] oximetry 2023-03-06 13:30:00 99 % Commo n [facility] blood pressure systolic 2023-03-06 13:30:00 130 mm[Hg] Common [facility] blood pressure diastolic 2023-03-06 13:30:00 60 mm[Hg] [facility] height 2023-01-18 11:00:00 65 [in_i] Commo n [facility] weight 2023-01-18 11:00:00 136.0 [lb_av] Co mmon [facility] temperature 2023-01-18 11:00:00 98.4 [degF] Com [facility] bmi 2023-01-18 11:00:00 22.63 kg/m2 Comm on [facility] oximetry 2023-01-18 11:00:00 98 % Commo n [facility] respiratory rate 2023-01-18 11:00:00 18 /min [facility] blood pressure systolic 2023-01-18 11:00:00 139 mm[Hg] [facility] blood pressure diastolic 2023-01-18 11:00:00 64 mm[Hg] [facility] height 2023-01-03 09:20:00 65 [in_i] Commo n [facility] weight 2023-01-03 09:20:00 135.8 [lb_av] Co mmon [facility] temperature 2023-01-03 09:20:00 98.4 [degF] Com mon [facility] bmi 2023-01-03 09:20:00 22.6 kg/m2 Commo n [facility] oximetry 2023-01-03 09:20:00 99 % Commo n [facility] respiratory rate 2023-01-03 09:20:00 17 /min [facility] blood pressure systolic 2023-01-03 09:20:00 139 mm[Hg] [facility] blood pressure diastolic 2023-01-03 09:20:00 73 mm[Hg] [facility] height 2022-10-19 11:00:00 65 [in_i] Commo n [facility] weight 2022-10-19 11:00:00 139.0 [lb_av] Co mmon [facility] temperature 2022-10-19 11:00:00 98.1 [degF] Com mon [facility] bmi 2022-10-19 11:00:00 23.13 kg/m2 Comm on [facility] oximetry 2022-10-19 11:00:00 98 % Commo n [facility] respiratory rate 2022-10-19 11:00:00 18 /min [facility] blood pressure systolic 2022-10-19 11:00:00 138 mm[Hg] [facility] blood pressure diastolic 2022-10-19 11:00:00 72 mm[Hg] [facility] height 2022-06-21 10:20:00 65 [in_i] Commo n [facility] weight 2022-06-21 10:20:00 137.5 [lb_av] Co mmon [facility] temperature 2022-06-21 10:20:00 97.3 [degF] Com mon [facility] bmi 2022-06-21 10:20:00 22.88 kg/m2 Comm on [facility] oximetry 2022-06-21 10:20:00 99 % Commo n [facility] respiratory rate 2022-06-21 10:20:00 18 /min [facility] blood pressure systolic 2022-06-21 10:20:00 139 mm[Hg] [facility] blood pressure diastolic 2022-06-21 10:20:00 72 mm[Hg] [facility] height 2022-06-21 10:30:00 65 [in_i] Commo n [facility] weight 2022-06-21 10:30:00 137.5 [lb_av] Co mmon [facility] temperature 2022-06-21 10:30:00 97.3 [degF] Com mon [facility] bmi 2022-06-21 10:30:00 22.88 kg/m2 Comm on [facility] oximetry 2022-06-21 10:30:00 99 % Commo n [facility] respiratory rate 2022-06-21 10:30:00 18 /min [facility] blood pressure systolic 2022-06-21 10:30:00 139 mm[Hg] [facility] blood pressure diastolic 2022-06-21 10:30:00 72 mm[Hg] [facility] height 2022-03-01 10:50:00 65 [in_i] Commo n [facility] weight 2022-03-01 10:50:00 138.6 [lb_av] Co mmon [facility] temperature 2022-03-01 10:50:00 97.9 [degF] Com [facility] bmi 2022-03-01 10:50:00 23.06 kg/m2 Comm on [facility] oximetry 2022-03-01 10:50:00 100 % Commo n [facility] respiratory rate 2022-03-01 10:50:00 17 /min [facility] blood pressure systolic 2022-03-01 10:50:00 137 mm[Hg] Common [facility] blood pressure diastolic 2022-03-01 10:50:00 71 mm[Hg] Common [facility] height 2022-02-04 08:50:00 65 [in_i] Commo n [facility] weight 2022-02-04 08:50:00 139.1 [lb_av] Co mmon [facility] temperature 2022-02-04 08:50:00 97.9 [degF] Com [facility] bmi 2022-02-04 08:50:00 23.14 kg/m2 Comm on [facility] oximetry 2022-02-04 08:50:00 100 % Commo n [facility] respiratory rate 2022-02-04 08:50:00 18 /min [facility] blood pressure systolic 2022-02-04 08:50:00 132 mm[Hg] [facility] blood pressure diastolic 2022-02-04 08:50:00 73 mm[Hg] Common [facility] height 2021-10-12 10:00:00 65 [in_i] Commo n [facility] weight 2021-10-12 10:00:00 138.2 [lb_av] Co mmon [facility] temperature 2021-10-12 10:00:00 98.1 [degF] Com mon [facility] bmi 2021-10-12 10:00:00 23 kg/m2 Commo n [facility] oximetry 2021-10-12 10:00:00 99 % Commo n [facility] respiratory rate 2021-10-12 10:00:00 18 /min [facility] blood pressure systolic 2021-10-12 10:00:00 135 mm[Hg] [facility] blood pressure diastolic 2021-10-12 10:00:00 76 mm[Hg] Common [facility] height 2021-06-14 13:20:00 65 [in_i] Commo n [facility] weight 2021-06-14 13:20:00 140.3 [lb_av] Co mmon [facility] temperature 2021-06-14 13:20:00 98.6 [degF] Com mon [facility] bmi 2021-06-14 13:20:00 23.34 kg/m2 Comm on [facility] oximetry 2021-06-14 13:20:00 98 % Commo n [facility] respiratory rate 2021-06-14 13:20:00 18 /min [facility] blood pressure systolic 2021-06-14 13:20:00 136 mm[Hg] [facility] blood pressure diastolic 2021-06-14 13:20:00 72 mm[Hg] [facility] height 2021-06-14 13:20:00 65 [in_i] Commo n [facility] weight 2021-06-14 13:20:00 140.3 [lb_av] Co [facility] temperature 2021-06-14 13:20:00 98.6 [degF] Com mon [facility] bmi 2021-06-14 13:20:00 23.34 kg/m2 Comm on [facility] oximetry 2021-06-14 13:20:00 98 % Commo n [facility] blood pressure systolic 2021-06-14 13:20:00 136 mm[Hg] [facility] blood pressure diastolic 2021-06-14 13:20:00 72 mm[Hg] [facility] Encounters Start Date/Time End Date/Time Encounter Type Admission Type Attending [facility] Care Facility Care Department Encounter ID Source 2024-01-08 15:33:00 Outpatient Chrystal Walker STLMLC STLMLC [id number] [facility] 2023-12-01 11:19:00 Outpatient Chrystal Walker STLMLC ST[facility]C [id number] [facility] 2023-11-07 16:02:00 Outpatient Chrystal Walker STLMLC STLMLC [id number] [facility] 2023-08-23 10:32:00 Outpatient Chrystal Walkre STLMLC STLMLC [id number] [facility] 2023-07-31 14:11:00 Outpatient Chrystal Walker STLMLC STLMLC [id number] [facility] 2023-07-18 10:40:00 Outpatient Chrystal Walker STLMLC STLMLC [id number] [facility] 2023-06-27 13:29:00 Outpatient Dunne, Harshil STLMLC STLMLC [id number] [facility] 2023-03-06 13:24:00 Outpatient Dunne, Harshil STLMLC ST[facility]C [id number] [facility] 2023-01-02 13:44:00 Outpatient Dunne, Harshil STLMLC STLMLC [id number] [facility] 2022-06-17 10:26:01 Outpatient Dunne, Harshil STLMLC STL[facility]C [id number] [facility] 2021-06-16 14:39:24 Outpatient Dunne, Harshil STLMLC STL[facility]C [id number] [facility] 2021-06-16 14:03:38 Outpatient Dunne, Harshil STLMLC ST[facility]C [id number] [facility] 2021-06-16 13:44:46 Outpatient Dunne, Harshil STLMLC STL[facility]C [id number] [facility] 2021-06-16 13:36:15 Outpatient Dunne, Harshil STLMLC ST[facility]C [id number] [facility] 2021-06-16 13:31:27 Outpatient Dunne, Harshil ST[facility]C ST[facility]C [id number] [facility] 2021-06-16 12:56:38 Outpatient Dunne, Harshil STLMLC STL[facility]C [id number] [facility] 2021-06-16 12:28:06 Outpatient Dunne, Harshil ST[facility]C ST[facility]C [id number] [facility] 2021-06-16 12:27:09 Outpatient Dunne, Harshil STLMLC STL[facility]C [id number] [facility] 2021-06-16 12:25:55 Outpatient Dunne, Harhsil STLMLC ST[facility]C [id number] [facility] 2021-06-16 12:24:00 Outpatient Dunne, Harshil ST[facility]MLC STL[facility]C [id number] [facility] 2021-06-16 12:00:42 Outpatient Dunne, Harshil ST[facility]C ST[facility]C [id number] [facility] 2021-06-16 11:45:34 Outpatient Dunne, Harshil [facility] ST[facility] [id number] [facility] 2021-06-16 11:27:29 [facility] [id number] [facility] 2021-06-16 11:23:46 Outpatient Dunne, [facility] [id number] [facility] 2021-06-16 11:16:21 Outpatient Dunne, [facility] [id number] [facility] 2021-06-16 11:12:14 Outpatient Dunne, [facility] [id number] [facility] 2024-08-06 15:39:24 2024-08-06 15:39:24 Outpatient SFA SFA [id number] [facility] 2024-07-17 13:09:49 2024-07-17 13:09:49 Outpatient SFA SFA [id number] Juan J Dow 2024-06-25 15:03:02 2024-06-25 15:03:02 Outpatient SFA SFA [id number] Juan J Dow 2024-06-24 00:00:00 2024-06-24 00:00:00 (TEL) [facility] [id number] [facility] 2024-05-06 14:20:32 2024-05-06 14:20:32 Outpatient SFA SFA [id number] Juan J Gallegos Victor M 2024-04-15 10:21:16 2024-04-15 10:21:16 Outpatient SFA SFA [id number] Juan J Gallegos Victor M 2024-03-04 16:35:08 2024-03-04 16:35:08 Outpatient SFA SFA [id number] Juan J Gallegos Victor M 2024-02-14 13:05:08 2024-02-14 13:05:08 Outpatient SFA SFA [id number] Juan J Dow 2023-12-29 08:02:02 2023-12-29 08:02:02 Outpatient SFA SFA [id number] Juan J Dow 2023-12-27 13:22:58 2023-12-27 13:22:58 Outpatient SFA SFA [id number] Juan J Dow 2023-12-01 10:42:30 2023-12-01 10:42:30 Outpatient SFA SFA [id number] Juan J Dow 2023-11-29 00:00:00 2023-11-29 00:00:00 (TEL) STLMLC STLMLC [id number] [facility] 2023-11-28 00:00:00 2023-11-28 00:00:00 (TEL) STLMLC STLMLC [id number] [facility] 2023-11-20 00:00:00 2023-11-20 00:00:00 (TEL) STLMLC STLMLC [id number] [facility] 2023-11-09 00:00:00 2023-11-09 00:00:00 (TEL) STLMLC STLMLC [id number] [facility] 2023-11-03 00:00:00 2023-11-03 00:00:00 (TEL) STLMLC STLMLC [id number] [facility] 2023-10-31 00:00:00 2023-10-31 00:00:00 OFFICE VISIT ESTAB PT LEVEL 4 STLMLC STLMLC [id number] [facility] 2023-10-31 00:00:00 2023-10-31 00:00:00 (TEL) STLMLC STLMLC [id number] [facility] 2023-10-30 00:00:00 2023-10-30 00:00:00 (TEL) STLMLC STLMLC [id number] [facility] 2023-10-06 00:00:00 2023-10-06 00:00:00 (TEL) STLMLC STLMLC [id number] [facility] 2023-09-20 00:00:00 2023-09-20 00:00:00 (TEL) STLMLC STLMLC [id number] [facility] 2023-09-13 00:00:00 2023-09-13 00:00:00 (TEL) STLMLC STLMLC [id number] [facility] 2023-09-05 00:00:00 2023-09-05 00:00:00 OFFICE VISIT ESTAB PT LEVEL 4 STLMLC STLMLC [id number] [facility] 2023-08-08 00:00:00 2023-08-08 00:00:00 (HOSP F/U) Hospital Follow Up STLMLC STLMLC [id number] [facility] 2023-08-02 00:00:00 2023-08-02 00:00:00 (TEL) STLMLC STLMLC [id number] [facility] 2023-08-02 00:00:00 2023-08-02 00:00:00 (TEL) STLMLC STLMLC [id number] [facility] 2023-07-18 00:00:00 2023-07-18 00:00:00 OFFICE VISIT NEW PT LEVEL 4 STLMLC STLMLC [id number] [facility] 2023-07-18 00:00:00 2023-07-18 00:00:00 SUB ANNUAL [facility] VISIT STLMLC STLMLC [id number] [facility] 2023-06-15 00:00:00 2023-06-15 00:00:00 (TEL) STLMLC STLMLC [id number] [facility] 2023-03-06 00:00:00 2023-03-06 00:00:00 (TEL) STLMLC STLMLC [id number] [facility] 2023-03-06 00:00:00 2023-03-06 00:00:00 OFFICE VISIT ESTAB PT LEVEL 3 STLMLC STLMLC [id number] [facility] 2023-01-18 00:00:00 2023-01-18 00:00:00 OFFICE VISIT ESTAB PT LEVEL 4 STLMLC STLMLC [id number] [facility] 2023-01-03 00:00:00 2023-01-03 00:00:00 OFFICE VISIT ESTAB PT LEVEL 4 STLMLC STLMLC [id number] [facility] 2023-01-02 00:00:00 2023-01-02 00:00:00 (TEL) STLMLC STLMLC [id number] [facility] 2022-10-19 00:00:00 2022-10-19 00:00:00 OFFICE VISIT ESTAB PT LEVEL 4 STLMLC STLMLC [id number] [facility] 2022-07-06 00:00:00 2022-07-06 00:00:00 (TEL) STLMLC STLMLC [id number] [facility] 2022-06-21 00:00:00 2022-06-21 00:00:00 OFFICE VISIT ESTAB PT LEVEL 4 STLMLC STLMLC [id number] [facility] 2022-06-21 00:00:00 2022-06-21 00:00:00 SUB ANNUAL [facility] VIS[facility] STLMLC STLMLC [id number] [facility] 2022-06-21 00:00:00 2022-06-21 00:00:00 (TEL) STLMLC STLMLC [id number] [facility] 2022-03-01 00:00:00 2022-03-01 00:00:00 OFFICE VISIT ESTAB PT LEVEL 4 STLMLC STLMLC [id number] [facility] 2022-02-11 00:00:00 2022-02-11 00:00:00 (TEL) STLMLC STLMLC [id number] [facility] 2022-02-04 00:00:00 2022-02-04 00:00:00 OFFICE VISIT EST PT LEVEL 3 STLMLC STLMLC [id number] [facility] 2022-02-03 00:00:00 2022-02-03 00:00:00 (TEL) STLMLC STLMLC [id number] [facility] 2021-10-12 00:00:00 2021-10-12 00:00:00 OFFICE VISIT ESTAB PT LEVEL 4 STLMLC STLMLC [id number] [facility] 2021-07-29 00:00:00 2021-07-29 00:00:00 (TEL) STLMLC STLMLC [id number] [facility] 2021-07-13 00:00:00 2021-07-13 00:00:00 (TEL) STLMLC STLMLC [id number] [facility] 2021-07-05 00:00:00 2021-07-05 00:00:00 (TEL) STLMLC STLMLC [id number] [facility] 2021-06-14 00:00:00 2021-06-14 00:00:00 OFFICE VISIT EST PT LEVEL 3 STLMLC STLMLC [id number] [facility] 2021-06-14 00:00:00 2021-06-14 00:00:00 SUB ANNUAL [facility]IS[facility] STLMLC STLMLC [id number] [facility] 2021-05-24 00:00:00 2021-05-24 00:00:00 (TEL) STLMLC STLMLC [id number] [facility] 2021-05-20 00:00:00 2021-05-20 00:00:00 (TEL) STLMLC STLMLC [id number] [facility] 2021-03-11 00:00:00 2021-03-11 00:00:00 (TEL) STLMLC STLMLC [id number] [facility] 2021-03-08 00:00:00 2021-03-08 00:00:00 (TEL) STLMLC STLMLC [id number] [facility] 2021-02-15 00:00:00 2021-02-15 00:00:00 Outpatient STLMLC STLMLC [id number] [facility] 2021-01-20 00:00:00 2021-01-20 00:00:00 Outpatient STLMLC STLMLC [id number] [facility] 2020-12-16 00:00:00 2020-12-16 00:00:00 Outpatient STLMLC STLMLC [id number] [facility] 2020-12-16 00:00:00 2020-12-16 00:00:00 Outpatient STLMLC STLMLC [id number] [facility] 2020-09-22 00:00:00 2020-09-22 00:00:00 Outpatient STLMLC STLMLC [id number] [facility] 2020-09-22 00:00:00 2020-09-22 00:00:00 Outpatient STLMLC STLMLC [id number] [facility] 2020-07-22 00:00:00 2020-07-22 00:00:00 Outpatient STLMLC STLMLC [id number] [facility] 2020-07-01 00:00:00 2020-07-01 00:00:00 Outpatient STLMLC STLMLC [id number] [facility] 2020-06-24 00:00:00 2020-06-24 00:00:00 Outpatient STLMLC STLMLC [id number] [facility] 2020-06-23 00:00:00 2020-06-23 00:00:00 Outpatient STLMLC STLMLC [id number] [facility] 2020-06-11 00:00:00 2020-06-11 00:00:00 Outpatient STLMLC STLMLC [id number] [facility] 2020-06-02 00:00:00 2020-06-02 00:00:00 Outpatient STLMLC STLMLC [id number] [facility] 2020-03-18 00:00:00 2020-03-18 00:00:00 Outpatient STLMLC STLMLC [id number] [facility] 2020-03-18 00:00:00 2020-03-18 00:00:00 Outpatient STLMLC STLMLC [id number] [facility] 2020-03-16 00:00:00 2020-03-16 00:00:00 Outpatient [facility]MLC [facility]C [id number] [facility] 2020-02-27 00:00:00 2020-02-27 00:00:00 Outpatient [facility] STLMLC [id number] [facility] 2020-02-24 00:00:00 2020-02-24 00:00:00 Outpatient [facility]LMLC STLMLC [id number] [facility] 2020-02-17 00:00:00 2020-02-17 00:00:00 Outpatient STLMLC STLMLC [id number] [facility] 2020-02-12 00:00:00 2020-02-12 00:00:00 Outpatient STLMLC STLMLC [id number] [facility] 2020-02-03 09:00:00 2020-02-03 09:00:00 [facility] [id number] [facility] 2020-01-28 11:00:00 2020-01-28 11:00:00 [facility] [id number] [facility] [facility] 2020[facility]01[facility]20 09:00:00 2020-01-20 09:00:[address] [facility] [id number] [facility] 2020-01-13 08:50:00 2020-01-13 08:50:00 [facility] [id number] [facility] 2020-01-06 09:00:00 2020-01-06 09:00:00 [facility] [id number] [facility] 2019-12-30 09:00:00 2019-12-30 09:00:00 [facility] [id number] [facility] 2019-12-23 08:45:00 2019-12-23 08:45:00 [facility] [id number] [facility] 2019-12-18 11:30:00 2019-12-18 11:30:00 [facility] [id number] [facility] 2019-12-16 09:00:00 2019-12-16 09:00:00 [facility] [id number] [facility] 2019-12-09 09:00:00 2019-12-09 09:00:00 [facility] [id number] [facility] 2019-12-02 09:30:00 2019-12-02 09:30:00 [facility] [id number] [facility] 2019-11-25 09:00:00 2019-11-25 09:00:00 [facility] [id number] [facility] 2019-11-18 09:00:00 2019-11-18 09:00:00 [facility] [id number] [facility] 2019-11-12 11:00:00 2019-11-12 11:00:00 [facility] [id number] [facility] 2019-11-11 10:00:00 2019-11-11 10:00:00 [facility] [id number] [facility] 2019-11-07 11:23:00 2019-11-07 11:23:00 [facility] [id number] [facility] 2019-11-04 09:00:00 2019-11-04 09:00:00 [facility] [id number] [facility] 2019-10-28 09:00:00 2019-10-28 09:00:00 [facility] [id number] [facility] 2019-10-22 13:45:00 2019-10-22 13:45:00 [facility] [id number] [facility] 2019-10-15 09:00:00 2019-10-15 09:00:00 [facility] [id number] [facility] 2019-10-07 09:00:00 2019-10-07 09:00:00 [facility] [id number] [facility] 2019-09-30 10:00:00 2019-09-30 10:00:00 [facility] [id number] [facility] 2019-09-23 08:08:00 2019-09-23 08:08:00 [facility] [id number] [facility] 2019-09-18 15:45:00 2019-09-18 15:45:00 [facility] [id number] [facility] 2019-09-18 15:45:00 2019-09-18 15:45:00 [facility] [id number] [facility] 2019-08-08 10:00:00 2019-08-08 10:00:00 [facility] [id number] [facility] 2019 16:38:00 2019 16:38:00 [facility] [id number] [facility] 2019 14:22:00 2019 14:22:00 [facility] [id number] [facility] 2019 14:00:00 2019 14:00:00 [facility] [id number] [facility] Results Test Description Test Time Test Comments Results Result Co mments Source LIPID PANEL WITH REFLEX DIRECT [id number] 00:00:00* Test Item Value Reference Range Interpretation Comme nts CALC LDL CHOL (test code = 08676-4) 86 MG/DL See_Comment [Automated messa ge] The [...] normal/abnormal. RISK RATIO LDL/HDL (test code = 86591-6) 2.10 RATIO See_Comment [Automated message] The system [...] POC, COVID 19 Antigen + Flu by EpicrisisPO, COVID 19 Antigen + Flu by Adelina
[2024-10-08] MEDS: HEPARIN 5000 UNIT/ML 1 ML VIAL SQ SCH (23:02)
[2024-10-08] MEDS ORDERED: MORPHINE 2 MG/ML SYR IV PRN (23:26)
[2024-10-08] MEDS ORDERED: HYDROCODONE/APAP 5/325 MG TAB PO PRN (23:26)
[2024-10-08 23:50] VITALS: BMI 20.7
[2024-10-09 05:39] LABS: Absolute Eosinophils 0.1 K/uL (0-0.5); Absolute Lymphocytes (CBC) 0.8 K/uL (0.7-4.9); Absolute Monocytes 0.6 K/uL (0.1-1.3); Basophils % 0.6 % (0-1.3); Eosinophils % 1.9 % (0-4.4); Hemoglobin 11.4 g/dL (13.6-17.9); Lymphocytes % 14.2 % (15.3-44.8); MCH 32.6 pg (27.0-35.0); MCHC 33.5 g/dL (32.0-36.0); MCV 97.5 fL (80-100); MPV 8.2 fL (7.6-11.3); Monocytes % 10.8 % (3.3-12.3); Neutrophils % 72.5 % (41.7-73.7); Nucleated Red Blood Cells % 0.2 % (0-0); Platelets 162 thou/uL (152-406); RBC Red Blood Cell Count 3.49 M/uL (4.33-5.43); Red Cell Distribution Width 18.5 % (12.1-15.2)
[2024-10-09 06:07] LABS: Albumin 2.8 g/dL (3.4-5.0); Albumin/Globulin Ratio 0.8 (1.1-1.8); Alkaline Phosphatase 82 U/L (45-117); Anion Gap 12.7 mEq/L (5.0-15.0); BUN Blood Urea Nitrogen 44 mg/dL (7-18); Bicarbonate 23 mEq/L (21-32); Bilirubin Total 0.3 mg/dL (0.2-1.0); Globulin 3.4 g/dL (2.3-3.5); Glomerular Filtration Rate 9 ml/min (=/>90); Glucose Level 89 mg/dL (74-106); Potassium 5.7 mEq/L (3.5-5.1); Protein, Total 6.2 g/dL (6.4-8.2); Sodium Level 138 mEq/L (136-145)
[2024-10-09 06:12] LABS: ALT/SGPT < 14 U/L (16-61); AST/SGOT < 10 U/L (15-37)
[2024-10-09] MEDS ORDERED: NA CHLORIDE 0.9% 1,000 ML IV PRN (07:44)
[2024-10-09] MEDS ORDERED: MANNITOL 25% 12.5 GM/50 ML VIAL IV PRN (07:44)
--- NOTE | 2024-10-09 07:47 | P.CNS ---
Date of Consult: 10/09/24 Reason for Consult: ESRD Requesting Physician: Julius Alejandre Chief Complaint: Chest Pain History of Present Illness: 79 yrs old Male with past medical history of hypertension, hyperlipidemia ESRD on dialysis, history of cataract, BPH was brought to ER with chest discomfort. Patient developed chest pain that occurred after dialysis fistula was placed. Located retrosternally radiating to the left arm . Denies any shortness of breath. No fever or chills. No nausea vomiting or diarrhea. No dizziness Patient was assessed in the ER and is admitted for further management of chest pain rule out ACS [id number] 19:46 This 79 yrs old Male presents to ER via Ambulatory with complaints of Chest ms3 Pain. 19:46 79-year-old male with past medical history of cataracts, hyperlipidemia, hypertension, ms3 kidney disease, end-stage renal disease presents to the emergency department for chest pain that occurred after dialysis fistula was placed. Patient states his sympto ms have improved. Patient denies any alleviating or inciting factors.. Allergies No Known Drug Allergies Allergy (Verified 09/03/24 15:04) Unknown Home medications list reviewed: Yes Home Medications: Gabapentin 100 mg PO BEDTIME 09/03/24 Hydrocodone 7.5/APAP 325 [[place] 7.5/325 mg*] 1 tab PO Q12H PRN #20 tab 09/05/24 Megestrol [Megace*] 10 ml PO BID #100 ml 09/05/24 Nepro Shake [Nepro*] 240 ml PO DAILY #30 can 09/05/24 Sevelamer Carbonate [Renvela*] 1,600 mg PO TIDWM #180 tab 09/05/24 Amlodipine [Norvasc*] 10 mg PO DAILY 10/08/24 Bimatoprost [Lumigan] 1 drop EACH EYE BEDTIME 10/08/24 Olmesartan Medoxomil [Benicar] 20 mg PO BEDTIME 10/08/24 cloNIDine HCL [Clonidine HCl] 0.1 mg PO BID 10/08/24 - Past Medical/Surgical History Diabetic: No -: HTN -: HLD -: BPH -: Cataracts -: GERD -: CKD V/ Proteinuria (Dr. Quesada/Dr. Magallon) -: ESRD -: right arm fistula Psychosocial/ Personal History: Patient is - Family History Mother Medical History: Cancer Notes: tumor - Social History Smoking Status: Never smoker Alcohol use: No CD- Drugs: No Caffeine use: No Review of Systems 10-point ROS is otherwise unremarkable General: Weakness Physical Examination Temp Pulse Resp BP Pulse Ox 98.2 F 72 17 142/61 H 97 10/09/24 04:00 10/09/24 04:00 10/09/24 04:00 10/09/24 04:00 10/09/24 04:00 General: In no apparent distress, Oriented x3, Cooperative HEENT: Atraumatic Neck: Supple Respiratory: Normal air movement Cardiovascular: No edema, Regular rate/rhythm Gastrointestinal: Soft and benign, Non-distended Musculoskeletal: No clubbing, No contractures Integumentary: No rashes, No cyanosis Neurological: Normal speech Laboratory Data (last 24 hrs) 10/08/24 10/08/24 16:55 16:55 WBC 6.00 Hgb 11.8 L Hct 35.3 L Plt Count 179 Sodium 136 Potassium 5.3 H BUN 34 H Creatinine 5.34 H Glucose 212 H Magnesium 1.9 Imagings Data: [id number] EXAMINATION: ONE VIEW CHEST XR CLINICAL INDICATION: Male, 79 years old.,CHEST PAIN TECHNIQUE: Frontal chest projection is submitted. Examination is limited by patient positioning and technique. COMPARISON: 09/03/2024 FINDINGS: Right IJ dialysis catheter in unchanged position. The lungs are well inflated and clear. No pneumothorax or sizable effusion. The heart is normal in size. Mediastinal contours are unremarkable. IMPRESSION: No acute intrathoracic abnormalities. [id number] LEFT VENTRICULAR WALL MOTION: NORMAL DOPPLER/COLOR FLOW: GRADE II DIASTOLIC DYSFUNCTION COMMENTS: 1. NORMAL LEFT VENTRICULAR SYSTOLIC FUNCTION, EJECTION FRACTION 60-65%, NORMAL WALL MOTION 2. GRADE II DIASTOLIC DYSFUNCTION 3. ELEVATED FILLING PRESSURE (RIGHT ATRIAL PRESSURE 10-15 mmHg) Conclusions/Impression: ESRD Hyperkalemia -Acute HD HTN with CKD/ CHF -Start Coreg Diastolic CHF, chronic -Low sodium diet Hypoalbuminemia -Start Nepro Anemia in CKD -Retacrit qHD CKD MBD Secondary HyperParathyroidism -Start Calcitriol Thank you kindly for the consultation Hospitalist and ER notes reviewed Case reviewed with Dr. Alejandre
--- NOTE | 2024-10-09 07:55 | P.PN ---
Date of Service: 10/09/24 Subjective: Currently asymptomatic. 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 Physical Exam: GEN: Alert, oriented, NAD CV: Regular rate and rhythm, no edema Pulm: Nonlabored respirations on room air, clear bilaterally ABD: soft, nontender, nondistended Integumentary: No rashes Neuro: Normal speech, normal affect Problem List: Chest pain ESRD on HD MWF with recent AV fistula placement (10/08/24) Hyperkalemia Hypertension Hyperlipidemia GERD BPH Chest pain on admission, presents with chest pain. Recently had AV fistula placed 10/08 No SOB/Fever/Chills. Denies n/v/d Troponins mildly elevated but trended flat Monitor on telemetry Cardio consulted Echo ordered to eval EF / stenosis Cardiology recommending LHC to further eval, r/o obstructive CAD NPO for LHC today ESRD on HD MWF with recent AV fistula placement (10/08/24) Hyperkalemia Recently had AV fistula placed 10/08 Nephrology consulted Dialysis per nephro Hypertension Hyperlipidemia GERD BPH confirm home meds, restart as appropriate VTE: heparin sq Code: Full Dispo: Home Pending LHC, nephro recs Time Spent Managing Pts Care (In Minutes): 55
[2024-10-09] MEDS ORDERED: ALBUMIN HUMAN 25% 50 ML IV SCH (08:00)
[2024-10-09 09:49] VITALS: TEMP 97.7
[2024-10-09] MEDS ORDERED: HEPA 1000U/500MLS 2,000 UNIT/1,000 ML BAG IV ONE (11:10)
[2024-10-09] MEDS ORDERED: LIDOCAINE 1% 20 ML MDV ONE (11:10)
[2024-10-09] MEDS ORDERED: MIDAZOLAM HCL 2 MG/2 ML INJ ONE (11:10)
[2024-10-09] MEDS ORDERED: HEPARIN 10,000 UNIT/10 ML VIAL IV ONE (11:10)
[2024-10-09] MEDS ORDERED: TICAGRELOR 90 MG TABLET PO ONE (11:11)
[2024-10-09] MEDS ORDERED: ASPIRIN 81 MG CHEWABLE TABLET ONE (11:11)
[2024-10-09] MEDS ORDERED: CLOPIDOGREL 75 MG TABLET ONE (11:11)
[2024-10-09] MEDS ORDERED: FENTANYL CITR 100 MCG/2 ML ONE (11:11)
[2024-10-09] MEDS ORDERED: ATROPINE SULF 1 MG/10 ML SYR IV ONE (11:11)
[2024-10-09] MEDS ORDERED: NA CHLORIDE 0.9% 500 ML ONE (11:12)
--- NOTE | 2024-10-09 11:43 | P.CNS ---
Date of Consult: 10/09/24 Chief Complaint: Chest Pain History of Present Illness: Patient with PMH of ESRD on HD, HTN, presented with chest pain, left sided, pressure while they were doing his fistula, resolved with NTG, denies any other cardiac symptoms. Allergies No Known Drug Allergies Allergy (Verified 09/03/24 15:04) Unknown Home medications list reviewed: Yes Home Medications: Gabapentin 100 mg PO BEDTIME 09/03/24 Hydrocodone 7.5/APAP 325 [[place] 7.5/325 mg*] 1 tab PO Q12H PRN #20 tab 09/05/24 Megestrol [Megace] 10 ml PO BID #100 ml 09/05/24 Nepro Shake [Nepro*] 240 ml PO DAILY #30 can 09/05/24 Sevelamer Carbonate [Renvela*] 1,600 mg PO TIDWM #180 tab 09/05/24 Amlodipine [Norvasc*] 10 mg PO DAILY 10/08/24 Bimatoprost [Lumigan] 1 drop EACH EYE BEDTIME 10/08/24 Olmesartan Medoxomil [Benicar] 20 mg PO BEDTIME 10/08/24 cloNIDine HCL [Clonidine HCl] 0.1 mg PO BID 10/08/24 - Past Medical/Surgical History Diabetic: No -: HTN -: HLD -: BPH -: Cataracts -: GERD -: CKD V/ Proteinuria (Dr. Quesada/Dr. Magallon) -: ESRD -: right arm fistula Psychosocial/ Personal History: Patient is - Family History Mother Medical History: Cancer Notes: tumor - Social History Smoking Status: Never smoker Alcohol use: No CD- Drugs: No Caffeine use: No Review of Systems 10-point ROS is otherwise unremarkable Physical Examination Temp Pulse Resp BP Pulse Ox 97.7 F 62 18 160/61 H 98 10/09/24 08:00 10/09/24 08:00 10/09/24 08:00 10/09/24 08:00 10/09/24 08:00 General: Alert, In no apparent distress HEENT: Atraumatic, PERRLA, Mucous membr. moist/pink, EOMI, Sclerae nonicteric Neck: Supple, 2+ carotid pulse no bruit, No LAD, Without JVD or thyroid abnormality Respiratory: Clear to auscultation bilaterally, Normal air movement Cardiovascular: Regular rate/rhythm, Normal S1 S2 Gastrointestinal: Normal bowel sounds, No tenderness Musculoskeletal: No tenderness Integumentary: No rashes Neurological: Normal gait, Normal speech, Normal tone, Normal affect Lymphatics: No axilla or inguinal lymphadenopathy Laboratory Data (last 24 hrs) 10/08/24 10/08/24 16:55 16:55 WBC 6.00 Hgb 11.8 L Hct 35.3 L Plt Count 179 Sodium 136 Potassium 5.3 H BUN 34 H Creatinine 5.34 H Glucose 212 H Magnesium 1.9 - Problems (1) NSTEMI (non-ST elevated myocardial infarction) Current Visit: Yes Status: Acute Plan: NPO for coronary angiogram ASA 81 mg daily Lipitor 40 mg daily (2) ESRD (end stage renal disease) Current Visit: No Status: Acute Plan: continue dialysis per nephrology. (3) Hypertension Onset Date: 07/21/17 Current Visit: No Status: Acute Plan: resume and continue patient home medications.
[2024-10-09] MEDS ORDERED: ASPIRIN 325 MG TAB ONE (12:00)
[2024-10-09] MEDS ORDERED: NALOXONE 0.4 MG/ML VIAL ONE (12:00)
[2024-10-09] MEDS ORDERED: FLUMAZENIL 0.1 MG/ML (5 mL VIAL) IV ONE (12:00)
[2024-10-09 13:56] VITALS: BP 149/61; O2SAT 97
[2024-10-09] MEDS: EPOETIN ALFA 10,000 UNIT/ML VIAL IV SCH (18:00)
--- NOTE | 2024-10-10 06:44 | P.DS ---
Admission Date: 10/08/24 Discharge Date: 10/09/24 Disposition: ROUTINE DISCHARGE Discharge Condition: GOOD Reason for Admission: Chest Pain Consultations: Cardiology - Dr. Barnhart Brief History of Present Illness: 79yo M, PMH: hypertension, hyperlipidemia ESRD on dialysis, history of cataract, BPH Patient was brought to ER with chest discomfort. Patient developed chest pain that occurred after dialysis fistula was placed. Located retrosternally radiating to the left arm . Denies any shortness of breath. No fever or chills. No nausea vomiting or diarrhea. No dizziness. Patient was assessed in the ER and is admitted for further management of chest pain rule out ACS Hospital Course: Problem List: Mild Nonobstructive CAD ESRD on HD MWF with recent AV fistula placement (10/08/24) Hyperkalemia Hypertension Hyperlipidemia GERD BPH Physician discharge instructions: Patient presented with retrosternal chest pain. Patient just recently had a new AV fistula placed on 10/08/24 in [place] and states his chest pain started after his fistula was placed. Patient denies any shortness of breath, fever, chills, nausea, vomiting. Chest pain resolved shortly after arrival. Labwork rather unremarkable except for slightly elevated potassium (5.7) and mildly elevated troponin (116). He states he had previously been given a small pill under his tongue which somewhat relieved his chest pain consistent with nitroglycerin sublingual. Patient was evaluated by Dr. Barnhart, medical technical writer who recommended left heart cath to further evaluate given his risk factors, presentation of symptoms. Patient underwent left heart catheter on 10/09 which noted mild coronary artery disease. No intervention warranted. Patient was feeling better, chest pain resolved, and was deemed stable for discharge after dialysis. Follow up with medical technical writer in 2-4 weeks for further management. Medications: continue home meds as previously prescribed Follow up: PCP 3-5 days Please call to schedule / confirm appointments Physical Exam: GEN: Alert, oriented, NAD CV: Regular rate and rhythm, no edema Pulm: Nonlabored respirations on room air, clear bilaterally ABD: soft, nontender, nondistended Neuro: Normal speech, normal affect Vital Signs/Physical Exam: Temp Pulse Resp BP Pulse Ox 97.7 F 60 16 149/61 H 98 10/09/24 08:00 10/09/24 13:50 10/09/24 13:50 10/09/24 13:50 10/09/24 08:00 Laboratory Data at Discharge: WBC 5.50 thou/uL (4.3-10.9) 10/09/24 05:22 Hgb 11.4 g/dL (13.6-17.9) L 10/09/24 05:22 Hct 34.0 % (39.6-49.0) L 10/09/24 05:22 Plt Count 162 thou/uL (152-406) 10/09/24 05:22 Sodium 138 mEq/L (136-145) 10/09/24 05:22 Potassium 5.7 mEq/L (3.5-5.1) H 10/09/24 05:22 BUN 44 mg/dL (7-18) H 10/09/24 05:22 Creatinine 5.96 mg/dL (0.70-1.30) H 10/09/24 05:22 Glucose 89 mg/dL (74-106) 10/09/24 05:22 Magnesium 1.9 mg/dL (1.6-2.4) 10/08/24 16:55 Total Bilirubin 0.3 mg/dL (0.2-1.0) 10/09/24 05:22 AST < 10 U/L (15-37) L 10/09/24 05:22 ALT < 14 U/L (16-61) L 10/09/24 05:22 Alkaline Phosphatase 82 U/L (45-117) 10/09/24 05:22 Home Medications: Gabapentin 100 mg PO BEDTIME 09/03/24 Hydrocodone 7.5/APAP 325 [[place] 7.5/325 mg*] 1 tab PO Q12H PRN #20 tab 09/05/24 Megestrol [Megace*] 10 ml PO BID #100 ml 09/05/24 Nepro Shake [Nepro*] 240 ml PO DAILY #30 can 09/05/24 Sevelamer Carbonate [Renvela*] 1,600 mg PO TIDWM #180 tab 09/05/24 Amlodipine [Norvasc*] 10 mg PO DAILY 10/08/24 Bimatoprost [Lumigan] 1 drop EACH EYE BEDTIME 10/08/24 Olmesartan Medoxomil [Benicar] 20 mg PO BEDTIME 10/08/24 cloNIDine HCL [Clonidine HCl] 0.1 mg PO BID 10/08/24 Physician Discharge Instructions: Physician discharge instructions: Patient presented with retrosternal chest pain. Patient just recently had a new AV fistula placed on 10/08/24 in [place] and states his chest pain started after his fistula was placed. Patient denies any shortness of breath, fever, chills, nausea, vomiting. Chest pain resolved shortly after arrival. Labwork rather unremarkable except for slightly elevated potassium (5.7) and mildly elevated troponin (116). He states he had previously been given a small pill under his tongue which somewhat relieved his chest pain consistent with nitroglycerin sublingual. Patient was evaluated by Dr. Barnhart, medical technical writer who recommended left heart cath to further evaluate given his risk factors, presentation of symptoms. Patient underwent left heart catheter on 10/09 which noted mild coronary artery disease. No intervention warranted. Patient was feeling better, chest pain resolved, and was deemed stable for discharge after dialysis. Follow up with medical technical writer in 2-4 weeks for further management. Medications: continue home meds as previously prescribed Follow up: PCP 3-5 days Please call to schedule / confirm appointments Followup: Reji Quesada DO [ACTIVE - CAN ADMIT] - 1-2 Weeks Hieu Barnhart MD [ACTIVE - CAN ADMIT] - 1-2 Weeks CIARRA DE LA ROSA [OUTSIDE PHYSICIAN] - 1-2 Weeks Time spent managing pt's care (in minutes): 45
--- NOTE | 2024-10-10 18:52 | OP ---
Date of Procedure: 10/09/2024 Surgeon: Hieu Barnhart Procedure Performed: Selective coronary angiogram. Indication For Procedure: [id number] LA. Complications: None. Estimated Blood Loss: Less than 50 cc. Access: Right common femoral artery, closed by Angio-Seal. Sedation Time: 20 minutes with 1 of Versed and 25 of fentanyl. Description Of Procedure: After risks, benefits, and alternatives were explained to the patient, the patient agreed to proceed with procedure and signed informed consent. The patient was brought back to the odd job laborer, prepped and draped in sterile fashion. Time-out was performed. Sedation was admini stered. Next, right common femoral artery access was obtained using ultrasound-guided micropuncture technique. A JL4 catheter was advanced over a J-wire to the aortic root. Selective angiogram of the left system was done with JL4 catheter, that was later exchanged with a JR4 catheter for selective a ngiogram of the right coronary system. At the end of procedure, catheter was removed over the J-wire . Sheath was removed. Angio-Seal was applied. Hemostasis achieved. The patient was moved back to recovery in stable condition. Findings: 1. Left main, very short, almost separate ostium. 2. LAD, diffuse mild luminal irregularities. 3. Diagonal 1 with ostial 30% disease and mild luminal irregularities. 4. Left circ with ostial 30% disease and mild luminal irregularities. 5. RCA is normal. Assessment: Mild ostial diagonal and ostial left circ disease. Plan: To continue medical management. YOBANY/FRANCIE Voice ID: [id number] Report ID: [id number]
[2024-10-11 09:03] LABS: Hepatitis B surface AG Interp. Nonreactive (Nonreactive)
[2024-10-11 09:04] LABS: HBsAG Nonreactive Report Report
--- NOTE | 2024-10-15 12:46 | EKG ---
Test Date: 2024-10-08 Test Time: 16:49:25 Puller Out: PLACIDO MEASUREMENT RESULTS: Intervals: Rate: 56 VA: 146 QRSD: 70 QT: 442 QTc: 426 Nicasio: P: 47 VA: 146 QRS: -72 T: 49 INTERPRETIVE STATEMENTS: Sinus bradycardia Pulmonary disease pattern Left anterior fascicular block Nonspecific ST and T wave abnormality Abnormal ECG Compared to ECG 09/02/2024 20:05:43 Left anterior fascicular block now present ST (T wave) deviation now present Left-axis deviation no longer present Electronically Signed On 10-15-24 12:32:03 CDT by Hieu Barnhart
== END 2024-10-09 20:00 | disposition home or self-care (01) ==
LOC: ER 16:21 → ERHOLD 20:49 → 4TH 22:14
PROVIDERS: ADMIT Family Medicine; ATTEND Hospitalist
PROC: B2111ZZ Fluoroscopy of Multiple Coronary Arteries using Low Osmolar Contrast (ICD-10-PCS; principal; 2024-10-08)
DX: I21.4 Non-ST elevation (NSTEMI) myocardial infarction (principal); I25.10 Atherosclerotic heart disease of native coronary artery without angina pectoris; I13.2 Hypertensive heart and chronic kidney disease with heart failure and with stage 5 chronic kidney disease, or end stage renal disease; I50.32 Chronic diastolic (congestive) heart failure; N18.6 End stage renal disease; D63.1 Anemia in chronic kidney disease; Z99.2 Dependence on renal dialysis; E78.5 Hyperlipidemia, unspecified; E87.5 Hyperkalemia; K21.9 Gastro-esophageal reflux disease without esophagitis; N40.0 Benign prostatic hyperplasia without lower urinary tract symptoms; E88.09 Other disorders of plasma-protein metabolism, not elsewhere classified; R53.1 Weakness; N25.81 Secondary hyperparathyroidism of renal origin; Z79.899 Other long term (current) drug therapy
CPT/HCPCS: 93005; 85025 ×2; 80048; 36415; 83735; 84484 ×3; 80053; 87340; 71045; 90935; 93454; 76937; 94760 ×2; 99285; C1893; Q9966; C1760; G0269; J1644 ×5; J2003; J2250; J3010; J7040; G0378 ×3; 99152; 99153; J0461; J2310

== ENCOUNTER 2025-01-06 11:05 | Emergency (ER) | payer OTHER ==
--- OUTSIDE RECORDS SUMMARY | 2025-01-06 11:17 | XMS REPORT | Continuity of Care Document ---
Author Name Unknown Address [address] [facility] [address] [place] [address] Organization [facility] Address [address] [facility] [address] [place] [address] Care Team Providers Care Human Performance Technologist Name Role Phone Daryl Curran Primary Care Physician Chrystal Walker Attending Clinician Unavail Harshil Harding Attending Clinician Unavailable Payers Payer Name Policy Type Policy Number Effective Date Expirati on Date Source [facility] Dual Complete Choice (Regional PPO D-SNP) [id number] 2022 00:00:00 [facility] MEDICAID [place] [id number] [facility] MEDICAID MC [id number] [facility] Problems Condition Name Condition Details Condition Category Status Onset Date Resolution Date Last Treatment Date Treating Clinician Comments Source [id number] BRAEDEN (generaliz ed anxiety disorder) Problem [facility] Chronic kidney disease stage 3B (disorder) Stage 3b chronic kidney disease Problem [facility] [id number] Essential hypertensi on Problem [facility] [id number] Mixed hyperlipid emia Problem [facility] [id number] Non-season al allergic rhinitis due to other allergic trigger Problem [facility] [id number] Benign prostatic hyperplasi a, unspecifie d whether lower urinary tract symptoms present Problem [facility] [id number] Absolute glaucoma of both eyes Problem [facility] [id number] Atopic dermatitis , unspecifie d type Problem [facility] [id number] Anemia of chronic disease Problem [facility] [id number] CKD (chronic kidney disease) stage 4, GFR 15-29 ml/min Problem [facility] [id number] Chronic gout due to renal impairment without tophus, unspecifie d site Problem [facility] [id number] Bilateral hearing loss, unspecifie d hearing loss type Problem [facility] Allergies, Adverse Reactions, Alerts Allergy Name Allergy Type Status Severity Reaction(s) Onset Date Inactive Date Treating Clinician Comments Source none (Not Checked) Propensi ty to adverse reaction to drug Active 11-30 00:00: 00 Juan J Dow Social History Social Habit Start Date Stop Date Quantity Comments Source History of Tobacco Use [facility] Sex Assigned At [facility] Smoking Status Start Date Stop Date Source Never Smoker [facility] Medications Ordered Medication Name Filled Medication Name Start Date Stop Date Current Medication? Ordering Clinician Indication Dosage Frequency Signature (SIG) Comments Components Source ciprofloxac in 0.3 %-dexametha sone 0.1 % ear drops,suspe nsion 7-03 00:00: 00 Yes 4% Juan J Dow nebivolol 2.5 mg tablet 6-18 00:00: 00 Yes 1mg Juan J Dow allopurinol 100 mg tablet 4-15 00:00: 00 Yes 12mg Juan J Dow triamcinolo ne acetonide 0.1 % topical cream -18 00:00: 00 Yes 1% Juan J Dow mupirocin 2 % topical ointment 18 00:00: 00 Yes 1% Juan J Dow mirtazapine 15 mg tablet -18 00:00: 00 Yes 1mg Juan J Dow fluticasone propionate 50 mcg/actuati on nasal spray,suspe nsion -18 00:00: 00 Yes 2mcg/ac tuation Juan J Dow amlodipine 10 mg tablet - 00:00: 00 Yes mg Juan J Dow metoprolol succinate ER 50 mg tablet,exte nded release 24 hr - 00:00: 00 Yes 1mg Juan J Dow allopurinol 300 mg tablet - 00:00: 00 Yes 1mg Juan J Dow losartan 100 mg tablet - 00:00: 00 Yes 1mg Juan J Dow gabapentin 100 mg capsule - 00:00: 00 Yes 1mg Juan J Dow losartan 50 mg tablet 07-12 00:00: 00 Yes 1mg Juan J Dow triamcinolo ne acetonide 0.1 % topical cream 2- 00:00: 00 Yes 1% Juan J Dow mupirocin 2 % topical ointment 2- 00:00: 00 Yes 1% Juan J Dow metoprolol succinate ER 50 mg tablet,exte nded release 24 hr 2- 00:00: 00 Yes mg Juan J Dow ergocalcife rol (vitamin D2) 1,250 mcg (50,000 unit) capsule - 00:00: 00 Yes (50,000 unit) Juan J Dow mirtazapine 15 mg tablet - 00:00: 00 Yes mg Juan J Dow trazodone 100 mg tablet - 00:00: 00 Yes mg Juan J Dow sodium bicarbonate 650 mg tablet - 00:00: 00 Yes mg Juan J Dow Lokelma 10 gram oral powder packet 1- 00:00: 00 Yes gram Juan J Dow furosemide 20 mg tablet 1-08 00:00: 00 Yes mg Juan J Dow metoprolol succinate ER 50 mg tablet,exte nded release 24 hr 2023-05 2- 00:00: 00 Yes mg Juan J Dow amlodipine 10 mg tablet 2023-05 2-16 00:00: 00 Yes mg Juan J Dow pravastatin 40 mg tablet 2023-05 2-16 00:00: 00 Yes 1mg Juan J Dow furosemide 20 mg tablet 2023-05-16 00:00: 00 Yes 12mg Juan J Dow losartan 50 mg tablet 2023-05-16 00:00: 00 Yes 1mg Juan J Dow mirtazapine 15 mg tablet 2023-05- 00:00: 00 Yes 1mg Juan J Dow Klor-Con M10 mEq tablet,exte nded release 2023-05-16 00:00: 00 Yes 12mEq Juan J Dow allopurinol 300 mg tablet 2023-05 00:00: 00 Yes 1mg Juan J Dow Macrobid 100 mg capsule 2023-05 00:00: 00 Yes 1mg Juan J Dow ferrous sulfate 325 mg (65 mg iron) tablet 2023-05 00:00: 00 Yes 1(65 mg iron) Juan J Dow losartan 50 mg tablet 2023-05 00:00: 00 Yes 1mg Juan J Dow mirtazapine 15 mg tablet 2023-05 00:00: 00 Yes 1mg Juan J Dow hydralazine 10 mg tablet 2023-05 00:00: 00 Yes 1mg Juan J Dow furosemide 20 mg tablet 02-13 00:00: 00 Yes 12mg Juan J Dow Klor-Con M10 mEq tablet,exte nded release 02-13 00:00: 00 Yes 12mEq Juan J Dow cefdinir 300 mg capsule 02-13 00:00: 00 Yes 1mg Juan J Dow allopurinol 100 mg tablet 01-29 00:00: 00 Yes 1mg Juan J Dow cetirizine 10 mg tablet 01-07 00:00: 00 Yes 1mg Juan J Dow fluticasone propionate 50 mcg/actuati on nasal spray,suspe nsion 01-07 00:00: 00 Yes 2mcg/ac tuation Juan J Dow metoprolol succinate ER 50 mg tablet,exte nded release 24 hr 8- 00:00: 00 Yes mg Juan J Dow amlodipine 10 mg tablet 8-07 00:00: 00 Yes mg Juan J Dow pravastatin 40 mg tablet 12-26 00:00: 00 Yes 1mg Juan J Dow furosemide 20 mg tablet - 00:00: 00 Yes 1mg Juan J Dow hydralazine 10 mg tablet 12-26 00:00: 00 Yes 1mg Juan J Dow allopurinol 300 mg tablet 12-26 00:00: 00 Yes 1mg Juan J Dow ferrous sulfate 325 mg (65 mg iron) tablet 12-26 00:00: 00 Yes 1(65 mg iron) Juan J Dow potassium chloride ER 10 mEq capsule,ext ended release 12-26 00:00: 00 Yes 1mEq Juan J Dow Nitroglycer in 0.4 MG Nitroglycer in 0.4 MG 11-08 00:00: 00 No Nitroglyce rin 0.4 MG Lokelma 10 GM Lokelma 10 GM 11-02 00:00: 00 No QD Lokelma 10 GM Ferrous Sulfate 325 (65 Fe) MG Ferrous Sulfate 325 (65 Fe) MG 11-02 00:00: 00 No 1{table t} Ferrous Sulfate 325 (65 Fe) MG pravastatin 40 mg tablet - 00:00: 00 Yes mg Juan J Dow Citalopram Hydrobromid e 10 MG Citalopram Hydrobromid e 10 MG -11 00:00: 00 No 1{table t} QD Citalopram Hydrobromi de 10 MG amlodipine 10 mg tablet 18 00:00: 00 Yes mg Juan J Dow Allopurinol 100 MG Allopurinol 100 MG -16 00:00: 00 No QD Allopurino l 100 MG allopurinol 100 mg tablet -16 00:00: 00 Yes mg Juan J Dow Metoprolol Succinate ER 50 MG Metoprolol Succinate ER 50 MG - 00:00: 00 No 1{table t} QD Metoprolol Succinate ER 50 MG metoprolol succinate ER 50 mg tablet,exte nded release 24 hr -19 00:00: 00 Yes mg Juan J Dow Fluticasone Propionate 50 MCG/ACT Fluticasone Propionate 50 MCG/ACT 2022-05 0-16 00:00: 00 No 1{spray _in_eac h_nostr il} QD Fluticason e Propionate 50 MCG/ACT Claritin 10 MG Claritin 10 MG 2022-05 0-16 00:00: 00 No 1{table t} QD Claritin 10 MG BRINZOLAMID E 1 % SUSP 8-22 00:00: 00 Yes Juan J Dow AMLODIPINE BESYLATE 5 MG TABS 6-26 00:00: 00 Yes Juan J Dow LUMIGAN 0.01 % SOLN 5-12 00:00: 00 Yes Juan J Dow ALBUTEROL SULFATE HFA 108 (90 Base) MCG/ACT AERS 4- 00:00: 00 Yes Juan J Dow FINASTERIDE 5 MG TABS 3- 00:00: 00 Yes Juan J Dow TOME LAKHWINDER TABLETA TODOS LOS EDOUARD ONCE A DAY 3- 00:00: 00 Yes Juan J Dow Kenalog (Triamcinol one) Kenalog (Triamcinol one) 2019-05 0-08 00:00: 00 No 40mg [facility] Lumigan 0.01 % Lumigan 0.01 [...] height 2023-10-31 11:20:00 65 [in_i] [facility] weight 2023-10-31 11:20:00 136 [lb_av] Comm on [facility] temperature 2023-10-31 11:20:00 98.4 [degF] Com mon [facility] bmi 2023-10-31 11:20:00 22.63 kg/m2 Comm on [facility] oximetry 2023-10-31 11:20:00 98 % [facility] respiratory rate 2023-10-31 11:20:00 17 /min [facility] blood pressure systolic 2023-10-31 11:20:00 140 mm[Hg] [facility] blood pressure diastolic 2023-10-31 11:20:00 60 mm[Hg] [facility] height 2023-09-05 14:40:00 65 [in_i] [facility]mo n [facility] weight 2023-09-05 14:40:00 131 [lb_av] Comm on [facility] temperature 2023-09-05 14:40:00 98.7 [degF] Com mon [facility] bmi 2023-09-05 14:40:00 21.8 kg/m2 [facility] oximetry 2023-09-05 14:40:00 100 % [facility] respiratory rate 2023-09-05 14:40:00 16 /min [facility] blood pressure systolic 2023-09-05 14:40:00 130 mm[Hg] [facility] blood pressure diastolic 2023-09-05 14:40:00 60 mm[Hg] [facility] height 2023-08-08 09:00:00 65 [in_i] Commo n [facility] weight 2023-08-08 09:00:00 135 [lb_av] Comm on [facility] temperature 2023-08-08 09:00:00 98.4 [degF] Com [facility] bmi 2023-08-08 09:00:00 22.46 kg/m2 Comm on [facility] oximetry 2023-08-08 09:00:00 100 % [facility] respiratory rate 2023-08-08 09:00:00 16 /min [facility] blood pressure systolic 2023-08-08 09:00:00 140 mm[Hg] [facility] blood pressure diastolic 2023-08-08 09:00:00 62 mm[Hg] [facility] height 2023-07-18 09:30:00 65 [in_i] [facility] weight 2023-07-18 09:30:00 131.7 [lb_av] Co mmon [facility] temperature 2023-07-18 09:30:00 98.3 [degF] Com [facility] bmi 2023-07-18 09:30:00 21.91 kg/m2 Comm on [facility] oximetry 2023-07-18 09:30:00 99 % [facility] respiratory rate 2023-07-18 09:30:00 17 /min [facility] blood pressure systolic 2023-07-18 09:30:00 139 mm[Hg] [facility] blood pressure diastolic 2023-07-18 09:30:00 67 mm[Hg] [facility] height 2023-07-18 09:30:00 65 [in_i] Commo n [facility] weight 2023-07-18 09:30:00 131.7 [lb_av] Co on [facility] temperature 2023-07-18 09:30:00 98.3 [degF] Com [facility] bmi 2023-07-18 09:30:00 21.91 kg/m2 Comm on [facility] oximetry 2023-07-18 09:30:00 99 % [facility] respiratory rate 2023-07-18 09:30:00 17 /min [facility] blood pressure systolic 2023-07-18 09:30:00 139 mm[Hg] [facility] blood pressure diastolic 2023-07-18 09:30:00 67 mm[Hg] [facility] height 2023-03-06 13:30:00 65 [in_i] Commo n [facility] weight 2023-03-06 13:30:00 137.8 [lb_av] Co [facility] temperature 2023-03-06 13:30:00 98.9 [degF] Com [facility] bmi 2023-03-06 13:30:00 22.93 kg/m2 Comm on [facility] oximetry 2023-03-06 13:30:00 99 % [facility] blood pressure systolic 2023-03-06 13:30:00 130 mm[Hg] [facility] blood pressure diastolic 2023-03-06 13:30:00 60 mm[Hg] [facility] height 2023-01-18 11:00:00 65 [in_i] [facility] weight 2023-01-18 11:00:00 136.0 [lb_av] Co [facility] temperature 2023-01-18 11:00:00 98.4 [degF] Com mon [facility] bmi 2023-01-18 11:00:00 22.63 kg/m2 Comm on [facility] oximetry 2023-01-18 11:00:00 98 % [facility] respiratory rate 2023-01-18 11:00:00 18 /min [facility] blood pressure systolic 2023-01-18 11:00:00 139 mm[Hg] [facility] blood pressure diastolic 2023-01-18 11:00:00 64 mm[Hg] [facility] height 2023-01-03 09:20:00 65 [in_i] [facility] n [facility] weight 2023-01-03 09:20:00 135.8 [lb_av] Co [facility] temperature 2023-01-03 09:20:00 98.4 [degF] Com mon [facility] bmi 2023-01-03 09:20:00 22.6 kg/m2 [facility] oximetry 2023-01-03 09:20:00 99 % [facility] respiratory rate 2023-01-03 09:20:00 17 /min [facility] blood pressure systolic 2023-01-03 09:20:00 139 mm[Hg] [facility] blood pressure diastolic 2023-01-03 09:20:00 73 mm[Hg] [facility] height 2022-10-19 11:00:00 65 [in_i] [facility] n [facility] weight 2022-10-19 11:00:00 139.0 [lb_av] [facility] temperature 2022-10-19 11:00:00 98.1 [degF] Com mon [facility] bmi 2022-10-19 11:00:00 23.13 kg/m2 Comm on [facility] oximetry 2022-10-19 11:00:00 98 % [facility] respiratory rate 2022-10-19 11:00:00 18 /min [facility] blood pressure systolic 2022-10-19 11:00:00 138 mm[Hg] [facility] blood pressure diastolic 2022-10-19 11:00:00 72 mm[Hg] [facility] height 2022-06-21 10:20:00 65 [in_i] Commo n [facility] weight 2022-06-21 10:20:00 137.5 [lb_av] Co [facility] temperature 2022-06-21 10:20:00 97.3 [degF] Com mon [facility] bmi 2022-06-21 10:20:00 22.88 kg/m2 Comm on [facility] oximetry 2022-06-21 10:20:00 99 % [facility] respiratory rate 2022-06-21 10:20:00 18 /min [facility] blood pressure systolic 2022-06-21 10:20:00 139 mm[Hg] [facility] blood pressure diastolic 2022-06-21 10:20:00 72 mm[Hg] [facility] height 2022-06-21 10:30:00 65 [in_i] Commo n [facility] weight 2022-06-21 10:30:00 137.5 [lb_av] Co [facility] temperature 2022-06-21 10:30:00 97.3 [degF] Com [facility] bmi 2022-06-21 10:30:00 22.88 kg/m2 Comm on [facility] oximetry 2022-06-21 10:30:00 99 % Com[facility] n [facility] respiratory rate 2022-06-21 10:30:00 18 /min [facility] blood pressure systolic 2022-06-21 10:30:00 139 mm[Hg] [facility] blood pressure diastolic 2022-06-21 10:30:00 72 mm[Hg] [facility] height 2022-03-01 10:50:00 65 [in_i] Commo n [facility] weight 2022-03-01 10:50:00 138.6 [lb_av] Co on [facility] temperature 2022-03-01 10:50:00 97.9 [degF] Com [facility] bmi 2022-03-01 10:50:00 23.06 kg/m2 Comm on [facility] oximetry 2022-03-01 10:50:00 100 % Com[facility] respiratory rate 2022-03-01 10:50:00 17 /min [facility] blood pressure systolic 2022-03-01 10:50:00 137 mm[Hg] [facility] blood pressure diastolic 2022-03-01 10:50:00 71 mm[Hg] [facility] height 2022-02-04 08:50:00 65 [in_i] Commo n [facility] weight 2022-02-04 08:50:00 139.1 [lb_av] Co on [facility] temperature 2022-02-04 08:50:00 97.9 [degF] Com mon [facility] bmi 2022-02-04 08:50:00 23.14 kg/m2 Comm on [facility] oximetry 2022-02-04 08:50:00 100 % Com[facility] respiratory rate 2022-02-04 08:50:00 18 /min [facility] blood pressure systolic 2022-02-04 08:50:00 132 mm[Hg] [facility] blood pressure diastolic 2022-02-04 08:50:00 73 mm[Hg] [facility] height 2021-10-12 10:00:00 65 [in_i] Commo n [facility] weight 2021-10-12 10:00:00 138.2 [lb_av] Co [facility] temperature 2021-10-12 10:00:00 98.1 [degF] Com [facility] bmi 2021-10-12 10:00:00 23 kg/m2 Com[facility] oximetry 2021-10-12 10:00:00 99 % Com[facility] respiratory rate 2021-10-12 10:00:00 18 /min [facility] blood pressure systolic 2021-10-12 10:00:00 135 mm[Hg] [facility] blood pressure diastolic 2021-10-12 10:00:00 76 mm[Hg] [facility] height 2021-06-14 13:20:00 65 [in_i] Commo n [facility] weight 2021-06-14 13:20:00 140.3 [lb_av] Co [facility] temperature 2021-06-14 13:20:00 98.6 [degF] Com [facility] bmi 2021-06-14 13:20:00 23.34 kg/m2 Comm on [facility] oximetry 2021-06-14 13:20:00 98 % Com[facility] respiratory rate 2021-06-14 13:20:00 18 /min [facility] blood pressure systolic 2021-06-14 13:20:00 136 mm[Hg] [facility] blood pressure diastolic 2021-06-14 13:20:00 72 mm[Hg] [facility] height 2021-06-14 13:20:00 65 [in_i] [facility]mo n [facility] weight 2021-06-14 13:20:00 140.3 [lb_av] Co [facility]mon [facility] temperature 2021-06-14 13:20:00 98.6 [degF] Com mon [facility] bmi 2021-06-14 13:20:00 23.34 kg/m2 Comm on [facility] oximetry 2021-06-14 13:20:00 98 % Com[facility] blood pressure systolic 2021-06-14 13:20:00 136 mm[Hg] [facility] blood pressure diastolic 2021-06-14 13:20:00 72 mm[Hg] [facility] BP Systolic 2024-12-18 14:20:00 217 mm[Hg] Thad Dow BP Diastolic 2024-12-18 14:20:00 76 mm[Hg] Davis Dow Weight Measured 2024-12-18 14:20:00 125.20 pounds Juan J Dow Height Measured 2024-12-18 14:20:00 64.50 inches Juan J Dow Body Temperature 2024-12-18 14:20:00 93.00 degrees Juan J Dow Heart Rate 2024-12-18 14:20:00 51.00 /min Danielle Dow Respiratory Rate 2024-12-18 14:20:00 18.00 /min Juan J Dow BP Systolic 2024-12-05 14:30:00 179 mm[Hg] Step hen F Victor M BP Diastolic 2024-12-05 14:30:00 73 mm[Hg] Davis phen F Victor M Weight Measured 2024-12-05 14:30:00 117.20 pounds Juan J F Victor M Height Measured 2024-12-05 14:30:00 64.50 inches Juan J F Victor M Body Temperature 2024-12-05 14:30:00 97.90 degrees Juan J F Victor M Heart Rate 2024-12-05 14:30:00 47.00 /min Danielle en F Victor M Respiratory Rate 2024-12-05 14:30:00 16.00 /min Juan J F Victor M BP Systolic 2024-11-21 14:09:00 203 mm[Hg] Step hen F Victor M BP Diastolic 2024-11-21 14:09:00 77 mm[Hg] Davis phen F Victor M Weight Measured 2024-11-21 14:09:00 122.80 pounds Juan J F Victor M Height Measured 2024-11-21 14:09:00 64.50 inches Juan J F Victor M Body Temperature 2024-11-21 14:09:00 98.50 degrees Juan J F Victor M Heart Rate 2024-11-21 14:09:00 56.00 /min Danielle en F Victor M Respiratory Rate 2024-11-21 14:09:00 18.00 /min Juan J F Victor M BP Systolic 2024-10-17 09:59:00 201 mm[Hg] Step hen F Victor M BP Diastolic 2024-10-17 09:59:00 88 mm[Hg] Davis phen F Victor M Weight Measured 2024-10-17 09:59:00 121.00 pounds Juan J F Victor M Height Measured 2024-10-17 09:59:00 64.50 inches Juan J F Victor M Body Temperature 2024-10-17 09:59:00 98.20 degrees Juan J F Victor M Heart Rate 2024-10-17 09:59:00 61.00 /min Danielle en F Victor M Respiratory Rate 2024-10-17 09:59:00 19.00 /min Juan J F Victor M BP Systolic 2024-10-17 09:34:00 201 mm[Hg] Step hen F Victor M BP Diastolic 2024-10-17 09:34:00 88 mm[Hg] Davis phen F Victor M Weight Measured 2024-10-17 09:34:00 121.00 pounds Juan J F Victor M Height Measured 2024-10-17 09:34:00 64.50 inches Juan J F Victor M Body Temperature 2024-10-17 09:34:00 98.20 degrees Juan J F Victor M Heart Rate 2024-10-17 09:34:00 61.00 /min Danielle en F Victor M Respiratory Rate 2024-10-17 09:34:00 19.00 /min Juan J F Victor M BP Systolic 2024-08-06 16:51:00 171 mm[Hg] Step hen F Victor M BP Diastolic 2024-08-06 16:51:00 76 mm[Hg] Davis phen F Victor M Weight Measured 2024-08-06 16:51:00 123.00 pounds Juan J F Victor M Height Measured 2024-08-06 16:51:00 64.50 inches Juan J F Victor M Body Temperature 2024-08-06 16:51:00 98.30 degrees Juan J F Victor M Heart Rate 2024-08-06 16:51:00 63.00 /min Danielle en F Victor M Respiratory Rate 2024-08-06 16:51:00 17.00 /min Juan J F Victor M BP Systolic 2024-08-06 16:03:00 171 mm[Hg] Step hen F Victor M BP Diastolic 2024-08-06 16:03:00 76 mm[Hg] Davis phen F Victor M Weight Measured 2024-08-06 16:03:00 123.00 pounds Juan J F Victor M Height Measured 2024-08-06 16:03:00 64.50 inches Juan J F Victor M Body Temperature 2024-08-06 16:03:00 98.30 degrees Juan J F Victor M Heart Rate 2024-08-06 16:03:00 63.00 /min Danielle en F Victor M Respiratory Rate 2024-08-06 16:03:00 17.00 /min Juan J F Victor M BP Systolic 2024-07-17 13:26:00 170 mm[Hg] Step hen F Victor M BP Diastolic 2024-07-17 13:26:00 78 mm[Hg] Davis phen F Victor M Weight Measured 2024-07-17 13:26:00 123.00 pounds Juan J F Victor M Height Measured 2024-07-17 13:26:00 64.50 inches Juan J F Victor M Body Temperature 2024-07-17 13:26:00 98.10 degrees Juan J F Victor M Heart Rate 2024-07-17 13:26:00 69.00 /min Danielle en F Victor M Respiratory Rate 2024-07-17 13:26:00 18.00 /min Juan J F Victor M BP Systolic 2024-06-25 15:16:00 162 mm[Hg] Step hen F Victor M BP Diastolic 2024-06-25 15:16:00 70 mm[Hg] Davis phen F Victor M Weight Measured 2024-06-25 15:16:00 123.00 pounds Juan J F Victor M Height Measured 2024-06-25 15:16:00 64.50 inches Juan J F Victor M Body Temperature 2024-06-25 15:16:00 98.40 degrees Juan J F Victor M Heart Rate 2024-06-25 15:16:00 77.00 /min Danielle en F Victor M Respiratory Rate 2024-06-25 15:16:00 18.00 /min Juan J F Victor M BP Systolic 2024-05-06 14:32:00 172 mm[Hg] Step hen F Victor M BP Diastolic 2024-05-06 14:32:00 72 mm[Hg] Davis phen F Victor M Weight Measured 2024-05-06 14:32:00 126.00 pounds Juan J F Victor M Height Measured 2024-05-06 14:32:00 64.50 inches Juan J F Victor M Body Temperature 2024-05-06 14:32:00 98.30 degrees Juan J F Victor M Heart Rate 2024-05-06 14:32:00 77.00 /min Danielle en F Victor M Respiratory Rate 2024-05-06 14:32:00 18.00 /min Juan J F Victor M BP Systolic 2024-04-15 10:28:00 180 mm[Hg] Step hen F Victor M BP Diastolic 2024-04-15 10:28:00 62 mm[Hg] Davis phen F Victor M Weight Measured 2024-04-15 10:28:00 120.00 pounds Juan J F Victor M Height Measured 2024-04-15 10:28:00 64.50 inches Juan J F Victor M Body Temperature 2024-04-15 10:28:00 97.90 degrees Juan J F Victor M Heart Rate 2024-04-15 10:28:00 90.00 /min Danielle Dow Respiratory Rate 2024-04-15 10:28:00 18.00 /min Juan J Gallegos Victor M Encounters Start Date/Time End Date/Time Encounter Type Admission Type Attending [facility] Care Facility Care Department Encounter ID Source 2024-01-08 15:33:00 [facility] [id number] [facility] 2023-12-01 11:19:00 Outpatient Chrystal Walker [facility] ST[facility] [id number] [facility] 2023-11-07 16:02:00 Outpatient Chrystal Walker [facility] STLC [id number] [facility] 2023-08-23 10:32:00 Outpatient Chrystal Walker [facility] ST[facility] [id number] [facility] 2023-07-31 14:11:00 Outpatient Chrystal Walker [facility] ST[facility] [id number] [facility] 2023-07-18 10:40:00 Outpatient Chrystal Walker [facility] ST[facility] [id number] [facility] 2023-06-27 13:29:00 Outpatient Dunne, Harshil STLC STLC [id number] [facility] 2023-03-06 13:24:00 Outpatient Dunne, Harshil STLC STLMLC [id number] [facility] 2023-01-02 13:44:00 Outpatient Dunne, Harshil STLC STLMLC [id number] [facility] 2022-06-17 10:26:01 Outpatient Dunne, Harshil STLC STLMLC [id number] [facility] 2021-06-16 14:39:24 Outpatient Dunne, Harshil STLC STLC [id number] [facility] 2021-06-16 14:03:38 Outpatient Dunne, Harshil STLMLC STLMLC [id number] [facility] 2021-06-16 13:44:46 Outpatient Dunne, Harshil STLMLC STLMLC [id number] [facility] 2021-06-16 13:36:15 Outpatient Dunne, Harshil STLMLC STLMLC [id number] [facility] 2021-06-16 13:31:27 Outpatient Dunne, Harshil STLMLC STLMLC [id number] [facility] 2021-06-16 12:56:38 Outpatient Dunne, Harshil STLMLC STLMLC [id number] [facility] 2021-06-16 12:28:06 Outpatient Dunne, Harshil ST[facility]MLC STLMLC [id number] [facility] 2021-06-16 12:27:09 Outpatient Dunne, Harshil STLMLC STLMLC [id number] [facility] 2021-06-16 12:25:55 Outpatient Dunne, Harshil [facility]MLC STLMLC [id number] [facility] 2021-06-16 12:24:00 Outpatient Dunne, Harshil ST[facility]MLC STLMLC [id number] [facility] 2021-06-16 12:00:42 Outpatient Dunne, Harshil STLMLC STLMLC [id number] [facility] 2021-06-16 11:45:34 Outpatient Dunne, Harshil [facility]MLC STLMLC [id number] [facility] 2021-06-16 11:27:29 Outpatient Dunne, Harshil ST[facility]MLC STLMLC [id number] [facility] 2021-06-16 11:23:46 Outpatient Dunne, Harshil [facility] STLMLC [id number] [facility] 2021-06-16 11:16:21 [id number] [facility] 2021-06-16 11:12:14 Outpatient Harshil Dunne [facility] [id number] [facility] 2024-12-18 14:05:07 2024-12-18 14:05:07 Outpatient SFA SFA [id number] Juan J Dow 2024-12-18 00:00:00 2024-12-18 00:00:00 Outpatient Visit SFA [id number] Juan J Dow 2024-12-05 14:23:24 2024-12-05 14:23:24 Outpatient SFA SFA [id number] Juan J Dow 2024-12-05 00:00:00 2024-12-05 00:00:00 Outpatient Visit SFA [id number] Juan J Dow 2024-11-21 14:00:55 2024-11-21 14:00:55 Outpatient SFA SFA [id number] Juan J Dow 2024-11-21 00:00:00 2024-11-21 00:00:00 Outpatient Visit SFA [id number] Juan J Dow 2024-10-17 09:31:34 2024-10-17 09:31:34 Outpatient SFA SFA [id number] Juan J Dow 2024-10-17 00:00:00 2024-10-17 00:00:00 Outpatient Visit SFA [id number] Juan J Dow 2024-08-06 15:39:24 2024-08-06 15:39:24 Outpatient SFA SFA [id number] Juan J Dow 2024-08-06 00:00:00 2024-08-06 00:00:00 Outpatient Visit SFA [id number] Juan J Dow 2024-07-17 13:09:49 2024-07-17 13:09:49 Outpatient SFA SFA [id number] Juan J Dow 2024-07-17 00:00:00 2024-07-17 00:00:00 Outpatient Visit SFA [id number] Juan J Dow 2024-06-25 15:03:02 2024-06-25 15:03:02 Outpatient SFA [facility] [id number] Juan J Dow 2024-06-25 00:00:00 2024-06-25 00:00:00 Outpatient Visit SFA [id number] Juan J Dow 2024-06-24 00:00:00 2024-06-24 00:00:00 (TEL) STLMLC STLMLC [id number] [facility] 2024-05-06 14:20:32 2024-05-06 14:20:32 Outpatient SFA SFA [id number] Juan J Dow 2024-05-06 00:00:00 2024-05-06 00:00:00 Outpatient Visit SFA [id number] Juan J Dow 2024-04-15 10:21:16 2024-04-15 10:21:16 Outpatient SFA SFA [id number] Juan J Dow 2024-04-15 00:00:00 2024-04-15 00:00:00 Outpatient Visit SFA [id number] Juan J Dow 2024-04-10 00:00:00 2024-04-10 00:00:00 Outpatient Visit SFA [id number] Juan J Dow 2024-03-04 16:35:08 2024-03-04 16:35:08 Outpatient SFA SFA [id number] Juan J Dow 2024-03-04 00:00:00 2024-03-04 00:00:00 Outpatient Visit SFA [id number] Juan J Dow 2024-02-14 13:05:08 2024-02-14 13:05:08 Outpatient SFA SFA [id number] Juan J Dow 2024-02-14 00:00:00 2024-02-14 00:00:00 Outpatient Visit SFA [id number] Juan J Dow 2024-01-29 00:00:00 2024-01-29 00:00:00 Outpatient Visit SFA [id number] Juan J Dow 2024-01-08 00:00:00 2024-01-08 00:00:00 Outpatient Visit SFA [id number] Juan J Dow 2023-12-29 08:02:02 2023-12-29 08:02:02 Outpatient SFA [facility] [id number] Juan J Dow 2023-12-27 13:22:58 2023-12-27 13:22:58 Outpatient SFA SFA [id number] Juan J Dow 2023-12-27 00:00:00 2023-12-27 00:00:00 Outpatient Visit SFA [id number] Juan J Dow 2023-12-01 10:42:30 2023-12-01 10:42:30 Outpatient SFA SFA [id number] Juan J Dow 2023-12-01 00:00:00 2023-12-01 00:00:00 Outpatient Visit SFA [id number] Juan J Dow 2023-11-29 00:00:00 2023-11-29 00:00:00 (TEL) STLMLC STLMLC [id number] [facility] 2023-11-28 00:00:00 2023-11-28 00:00:00 (TEL) STLMLC STLMLC [id number] [facility] 2023-11-20 00:00:00 2023-11-20 00:00:00 (TEL) STLMLC STLMLC [id number] [facility] 2023-11-09 00:00:00 2023-11-09 00:00:00 (TEL) STLMLC STLMLC [id number] [facility] 2023-11-03 00:00:00 2023-11-03 00:00:00 (TEL) STLMLC STLMLC [id number] [facility] 2023-10-31 00:00:00 2023-10-31 00:00:00 OFFICE VISIT ESTAB PT LEVEL 4 STLMLC STLMLC [id number] [facility] 2023-10-31 00:00:00 2023-10-31 00:00:00 (TEL) STLMLC STLMLC [id number] [facility] 2023-10-30 00:00:00 2023-10-30 00:00:00 (TEL) STLMLC STLMLC [id number] [facility] 2023-10-06 00:00:00 2023-10-06 00:00:00 (TEL) STLMLC STLMLC [id number] [facility] 2023-09-20 00:00:00 2023-09-20 00:00:00 (TEL) STLMLC STLMLC [id number] [facility] 2023-09-13 00:00:00 2023-09-13 00:00:00 (TEL) STLMLC STLMLC [id number] [facility] 2023-09-05 00:00:00 2023-09-05 00:00:00 OFFICE VISIT ESTAB PT LEVEL 4 STLMLC STLMLC [id number] [facility] 2023-08-08 00:00:00 2023-08-08 00:00:00 (HOSP F/U) Hospital Follow Up STLMLC STLMLC [id number] [facility] 2023-08-02 00:00:00 2023-08-02 00:00:00 (TEL) STLMLC STLMLC [id number] [facility] 2023-08-02 00:00:00 2023-08-02 00:00:00 (TEL) STLMLC STLMLC [id number] [facility] 2023-07-18 00:00:00 2023-07-18 00:00:00 OFFICE VISIT NEW PT LEVEL 4 STLMLC STLMLC [id number] [facility] 2023-07-18 00:00:00 2023-07-18 00:00:00 SUB ANNUAL [facility] WELLNESS VISIT STLMLC STLMLC [id number] [facility] 2023-06-15 00:00:00 2023-06-15 00:00:00 (TEL) STLMLC STLMLC [id number] [facility] 2023-03-06 00:00:00 2023-03-06 00:00:00 (TEL) STLMLC STLMLC [id number] [facility] 2023-03-06 00:00:00 2023-03-06 00:00:00 OFFICE VISIT ESTAB PT LEVEL 3 STLMLC STLMLC [id number] [facility] 2023-01-18 00:00:00 2023-01-18 00:00:00 OFFICE VISIT ESTAB PT LEVEL 4 STLMLC STLMLC [id number] [facility] 2023-01-03 00:00:00 2023-01-03 00:00:00 OFFICE VISIT ESTAB PT LEVEL 4 STLMLC STLMLC [id number] [facility] 2023-01-02 00:00:00 2023-01-02 00:00:00 (TEL) STLMLC STLMLC [id number] [facility] 2022-10-19 00:00:00 2022-10-19 00:00:00 OFFICE VISIT ESTAB PT LEVEL 4 STLMLC STLMLC [id number] [facility] 2022-07-06 00:00:00 2022-07-06 00:00:00 (TEL) STLMLC STLMLC [id number] [facility] 2022-06-21 00:00:00 2022-06-21 00:00:00 OFFICE VISIT ESTAB PT LEVEL 4 STLMLC STLMLC [id number] [facility] 2022-06-21 00:00:00 2022-06-21 00:00:00 SUB ANNUAL [facility] WELLNESS VISIT STLMLC STLMLC [id number] [facility] 2022-06-21 00:00:00 2022-06-21 00:00:00 (TEL) STLMLC STLMLC [id number] [facility] 2022-03-01 00:00:00 2022-03-01 00:00:00 OFFICE VISIT ESTAB PT LEVEL 4 STLMLC STLMLC [id number] [facility] 2022-02-11 00:00:00 2022-02-11 00:00:00 (TEL) STLMLC STLMLC [id number] [facility] 2022-02-04 00:00:00 2022-02-04 00:00:00 OFFICE VISIT EST PT LEVEL 3 STLMLC STLMLC [id number] [facility] 2022-02-03 00:00:00 2022-02-03 00:00:00 (TEL) STLMLC STLMLC [id number] [facility] 2021-10-12 00:00:00 2021-10-12 00:00:00 OFFICE VISIT ESTAB PT LEVEL 4 STLMLC STLMLC [id number] [facility] 2021-07-29 00:00:00 2021-07-29 00:00:00 (TEL) STLMLC STLMLC [id number] [facility] 2021-07-13 00:00:00 2021-07-13 00:00:00 (TEL) STLMLC STLMLC [id number] [facility] 2021-07-05 00:00:00 2021-07-05 00:00:00 (TEL) STLMLC STLMLC [id number] [facility] 2021-06-14 00:00:00 2021-06-14 00:00:00 OFFICE VISIT EST PT LEVEL 3 STLMLC STLMLC [id number] [facility] 2021-06-14 00:00:00 2021-06-14 00:00:00 SUB ANNUAL [facility] WELLNESS VISIT STLMLC STLMLC [id number] [facility] 2021-05-24 00:00:00 2021-05-24 00:00:00 (TEL) STLMLC STLMLC [id number] [facility] 2021-05-20 00:00:00 2021-05-20 00:00:00 (TEL) STLMLC STLMLC [id number] [facility] 2021-03-11 00:00:00 2021-03-11 00:00:00 (TEL) STLMLC STLMLC [id number] [facility] 2021-03-08 00:00:00 2021-03-08 00:00:00 (TEL) STLMLC STLMLC [id number] [facility] 2021-02-15 00:00:00 2021-02-15 00:00:00 Outpatient STLMLC STLMLC [id number] [facility] 2021-01-20 00:00:00 2021-01-20 00:00:00 Outpatient STLMLC STLMLC [id number] [facility] 2020-12-16 00:00:00 2020-12-16 00:00:00 Outpatient STLMLC STLMLC [id number] [facility] 2020-12-16 00:00:00 2020-12-16 00:00:00 Outpatient STLMLC STLMLC [id number] [facility] 2020-09-22 00:00:00 2020-09-22 00:00:00 Outpatient STLMLC STLMLC [id number] [facility] 2020-09-22 00:00:00 2020-09-22 00:00:00 Outpatient STLMLC STLMLC [id number] [facility] 2020-07-22 00:00:00 2020-07-22 00:00:00 Outpatient STLMLC STLMLC [id number] [facility] 2020-07-01 00:00:00 2020-07-01 00:00:00 Outpatient STLMLC STLMLC [id number] [facility] 2020-06-24 00:00:00 2020-06-24 00:00:00 Outpatient STLMLC STLMLC [id number] [facility] 2020-06-23 00:00:00 2020-06-23 00:00:00 Outpatient STLMLC STLMLC [id number] [facility] 2020-06-11 00:00:00 2020-06-11 00:00:00 Outpatient STLMLC STLMLC [id number] [facility] 2020-06-02 00:00:00 2020-06-02 00:00:00 Outpatient STLMLC STLMLC [id number] [facility] 2020-03-18 00:00:00 2020-03-18 00:00:00 Outpatient STLMLC STLMLC [id number] [facility] 2020-03-18 00:00:00 2020-03-18 00:00:00 Outpatient STLMLC STLMLC [id number] [facility] 2020-03-16 00:00:00 2020-03-16 00:00:00 Outpatient STLMLC STLMLC [id number] [facility] 2020-02-27 00:00:00 2020-02-27 00:00:00 Outpatient STLMLC STLMLC [id number] [facility] 2020-02-24 00:00:00 2020-02-24 00:00:00 Outpatient STLMLC STLMLC [id number] [facility] 2020-02-17 00:00:00 2020-02-17 00:00:00 Outpatient STLMLC STLMLC [id number] [facility] 2020-02-12 00:00:00 2020-02-12 00:00:00 Outpatient STLMLC STLMLC [id number] [facility] 2020-02-03 09:00:00 2020-02-03 09:00:[address] [facility] [id number] [facility] 2020-01-28 11:00:00 2020-01-28 11:00:[address] [facility] [id number] [facility] 2020-01-20 09:00:00 2020-01-20 09:00:[address] [facility] [id number] [facility] 2020-01-13 08:50:00 2020-01-13 08:50:[address] [facility] [id number] [facility] 2020-01-06 09:00:00 2020-01-06 09:00:[address] [facility] [id number] [facility] 2019-12-30 09:00:00 2019-12-30 09:00:[address] [facility] [id number] [facility] 2019-12-23 08:45:00 2019-12-23 08:45:[address] [facility] [id number] [facility] 2019-12-18 11:30:00 2019-12-18 11:30:[address] [facility] [id number] [facility] 2019-12-16 09:00:00 2019-12-16 09:00:[address] [facility] [facility] [id number] [facility] 2019-12-09 09:00:00 2019-12-09 09:00:[address] [facility] [facility] [id number] [facility] 2019-12-02 09:30:00 2019-12-02 09:30:[address] [facility] [id number] [facility] 2019-11-25 09:00:00 2019-11-25 09:00:00 [facility] [id number] [facility] 2019-11-18 09:00:00 2019-11-18 09:00:[address] [facility] [id number] [facility] 2019-11-12 11:00:00 2019-11-12 11:00:00 [facility] [id number] [facility] 2019-11-11 10:00:00 2019-11-11 10:00:[address] [facility] [id number] [facility] 2019-11-07 11:23:00 2019-11-07 11:23:[address] [facility] [id number] [facility] 2019-11-04 09:00:00 2019-11-04 09:00:00 [facility] [id number] [facility] 2019-10-28 09:00:00 2019-10-28 09:00:[address] [facility] [id number] [facility] 2019-10-22 13:45:00 2019-10-22 13:45:[address] [facility] [id number] [facility] 2019-10-15 09:00:00 2019-10-15 09:00:00 [facility] [id number] [facility] 2019-10-07 09:00:00 2019-10-07 09:00:[address] [facility] [id number] [facility] 2019-09-30 10:00:00 2019-09-30 10:00:00 [facility] [id number] [facility] 2019-09-23 08:08:00 2019-09-23 08:08:[address] [facility] [id number] [facility] 2019-09-18 15:45:00 2019-09-18 15:45:[address] [facility] [id number] [facility] 2019-09-18 15:45:00 2019-09-18 15:45:[address] [facility] [id number] [facility] 2019-08-08 10:00:00 2019-08-08 10:00:00 [facility] [id number] [facility] 2019 16:38:00 2019 16:38:[address] [facility] [id number] [facility] 2019 14:22:00 2019 14:22:[address] [facility] [id number] [facility] 2019 14:00:00 2019 14:00:[address] [facility] [facility] [id number] [facility] Results Test Description Test Time Test Comments Results Result Co mments Source Juan J DowCBC W/AUTO [id number] 00:00:00* Test Item Value Reference Range Interpretation Comme nts WBC (test code = 1001) 5.4 K/UL RBC (test code = 1002) 3.00 M/UL HEMOGLOBIN (test code = 1003) 9.3 G/DL HEMATOCRIT (test code = 1004) 29.2 % MCV (test code = 1005) 97.3 fL MCH (test code = 1006) 31.0 PG MCHC (test code = 1007) 31.8 G/DL RDW (test code = 1038) 13.2 % NEUTROPHILS (test code = 1008) 67.9 % LYMPHOCYTES (test code = 1010) 20.3 % MONOCYTES (test code = 1011) 8.3 % EOSINOPHILS (test code = 1012) 2.4 % BASOPHILS (test code = 1013) 0.9 % IMMATURE GRANULOCYTES (test code = 1036) 0.2 % NUCLEATED RBCS (test code = 1065) 0.0 /100WBC'S PLATELET COUNT (test code = 1015) 294 K/UL ABSOLUTE NEUTROPHILS (test c ode = 1066) 3.69 K/UL ABSOLUTE LYMPHOCYTES (test c ode = 1067) 1.10 K/UL ABSOLUTE MONOCYTES (test cod e = 1068) 0.45 K/UL ABSOLUTE EOSINOPHILS (test c ode = 1040) 0.13 K/UL ABSOLUTE BASOPHILS (test cod e = 1069) 0.05 K/UL ABS IMMATURE GRANULOCYTES (t est code = 1020) 0.01 K/UL ABS NUCLEATED RBCS (test cod e = 93950) 0.00 K/UL Juan J DowLIPID [id number] 00:00:00* Test Item Value Reference Range Interpretation Comme nts CHOLESTEROL (test code = 2210) 292 MG/DL TRIGLYCERIDES (test code = 2232) 135 MG/DL HDL CHOLESTEROL (test code = 2220) 63 MG/DL CALC LDL CHOL (test code = 2237) 200 MG/DL RISK RATIO LDL/HDL (test cod e = 2238) 3.17 RATIO Juan J Gallegos Victor MCOMPREHENSIVE METABOLIC [id number] 00:00:00* Test Item Value Reference Range Interpretation Comme nts GLUCOSE (test code = 2217) 128 MG/DL BUN (test code = 2208) 85 MG/DL CREATININE (test code = 2214) 4.86 MG/DL eGFR (2020 CKD-EPI) (test co de = 91440) 12 ML/MIN/1.73 CALC BUN/CREAT (test code = 2235) 17 RATIO SODIUM (test code = 2231) 138 MEQ/L POTASSIUM (test code = 2228) 5.6 MEQ/L CHLORIDE (test code = 2215) 103 MEQ/L CARBON DIOXIDE (test code = 2206) 22 MEQ/L CALCIUM (test code = 2209) 9.9 MG/DL PROTEIN, TOTAL (test code = 2229) 7.2 G/DL ALBUMIN (test code = 2201) 4.2 G/DL CALC GLOBULIN (test code = 2240) 3.0 G/DL CALC A/G RATIO (test code = 2234) 1.4 RATIO BILIRUBIN, TOTAL (test code = 2207) <0.2 MG/DL ALKALINE PHOSPHATASE (test code = 2204) 93 U/L AST (test code = 2218) 28 U/L ALT (test code = 2219) 32 U/L Juan J DowURINALYSIS W/REFLEX [id number] 00:00:00* Test Item Value Reference Range Interpretation Comme nts COLOR (test code = 1501) YELLOW APPEARANCE (test code = 1502) CLEAR SPECIFIC GRAVITY (test code = 1503) 1.012 LEUKOCYTE ESTERASE (test cod e = 1504) NEGATIVE NITRITE (test code = 1505) NEGATIVE pH (test code = 1506) 5.5 PROTEIN (test code = 1507) 3+ GLUCOSE (test code = 1508) TRACE KETONES (test code = 1509) NEGATIVE UROBILINOGEN (test code = 1510) 0.2 MG/DL BILIRUBIN (test code = 1511) NEGATIVE OCCULT BLOOD (test code = 1512) TRACE WHITE BLOOD CELLS (test code = 1513) 0-5 /HPF RED BLOOD CELLS (test code = 1514) 3-5 /HPF EPITHELIAL CELLS (test code = 24799) 0-5 /HPF BACTERIA (test code = 1515) NONE SEEN CASTS, HYALINE (test code = 1517) TRACE Juan J DowCBC W/AUTO [id number] 00:00:00* Test Item Value Reference Range Interpretation Comme nts WBC (test code = 1001) 5.4 K/UL RBC (test code = 1002) 3.00 M/UL HEMOGLOBIN (test code = 1003) 9.3 G/DL HEMATOCRIT (test code = 1004) 29.2 % MCV (test code = 1005) 97.3 fL MCH (test code = 1006) 31.0 PG MCHC (test code = 1007) 31.8 G/DL RDW (test code = 1038) 13.2 % NEUTROPHILS (test code = 1008) 67.9 % LYMPHOCYTES (test code = 1010) 20.3 % MONOCYTES (test code = 1011) 8.3 % EOSINOPHILS (test code = 1012) 2.4 % BASOPHILS (test code = 1013) 0.9 % IMMATURE GRANULOCYTES (test code = 1036) 0.2 % NUCLEATED RBCS (test code = 1065) 0.0 /100WBC'S PLATELET COUNT (test code = 1015) 294 K/UL ABSOLUTE NEUTROPHILS (test c ode = 1066) 3.69 K/UL ABSOLUTE LYMPHOCYTES (test c ode = 1067) 1.10 K/UL ABSOLUTE MONOCYTES (test cod e = 1068) 0.45 K/UL ABSOLUTE EOSINOPHILS (test c ode = 1040) 0.13 K/UL ABSOLUTE BASOPHILS (test cod e = 1069) 0.05 K/UL ABS IMMATURE GRANULOCYTES (t est code = 1020) 0.01 K/UL ABS NUCLEATED RBCS (test cod e = 67650) 0.00 K/UL Juan J DowLIPID [id number] 00:00:00* Test Item Value Reference Range Interpretation Comme nts CHOLESTEROL (test code = 2210) 292 MG/DL TRIGLYCERIDES (test code = 2232) 135 MG/DL HDL CHOLESTEROL (test code = 2220) 63 MG/DL CALC LDL CHOL (test code = 2237) 200 MG/DL RISK RATIO LDL/HDL (test cod e = 2238) 3.17 RATIO Juan J DowCOMPREHENSIVE METABOLIC [id number] 00:00:00* Test Item Value Reference Range Interpretation Comme nts GLUCOSE (test code = 2217) 128 MG/DL BUN (test code = 2208) 85 MG/DL CREATININE (test code = 2214) 4.86 MG/DL eGFR (2020 CKD-EPI) (test co de = 23838) 12 ML/MIN/1.73 CALC BUN/CREAT (test code = 2235) 17 RATIO SODIUM (test code = 2231) 138 MEQ/L POTASSIUM (test code = 2228) 5.6 MEQ/L CHLORIDE (test code = 2215) 103 MEQ/L CARBON DIOXIDE (test code = 2206) 22 MEQ/L CALCIUM (test code = 2209) 9.9 MG/DL PROTEIN, TOTAL (test code = 2229) 7.2 G/DL ALBUMIN (test code = 2201) 4.2 G/DL CALC GLOBULIN (test code = 2240) 3.0 G/DL CALC A/G RATIO (test code = 2234) 1.4 RATIO BILIRUBIN, TOTAL (test code = 2207) <0.2 MG/DL ALKALINE PHOSPHATASE (test code = 2204) 93 U/L AST (test code = 2218) 28 U/L ALT (test code = 2219) 32 U/L Juan J Gallegos AustinURINALYSIS W/REFLEX [id number] 00:00:00* Test Item Value Reference Range Interpretation Comme nts COLOR (test code = 1501) YELLOW APPEARANCE (test code = 1502) CLEAR SPECIFIC GRAVITY (test code = 1503) 1.012 LEUKOCYTE ESTERASE (test cod e = 1504) NEGATIVE NITRITE (test code = 1505) NEGATIVE pH (test code = 1506) 5.5 PROTEIN (test code = 1507) 3+ GLUCOSE (test code = 1508) TRACE KETONES (test code = 1509) NEGATIVE UROBILINOGEN (test code = 1510) 0.2 MG/DL BILIRUBIN (test code = 1511) NEGATIVE OCCULT BLOOD (test code = 1512) TRACE WHITE BLOOD CELLS (test code = 1513) 0-5 /HPF RED BLOOD CELLS (test code = 1514) 3-5 /HPF EPITHELIAL CELLS (test code = 13067) 0-5 /HPF BACTERIA (test code = 1515) NONE SEEN CASTS, HYALINE (test code = 1517) TRACE Juan J Gallegos AustinCBC W/AUTO [id number] 00:00:00* Test Item Value Reference Range Interpretation Comme nts WBC (test code = 1001) 5.4 K/UL RBC (test code = 1002) 3.00 M/UL HEMOGLOBIN (test code = 1003) 9.3 G/DL HEMATOCRIT (test code = 1004) 29.2 % MCV (test code = 1005) 97.3 fL MCH (test code = 1006) 31.0 PG MCHC (test code = 1007) 31.8 G/DL RDW (test code = 1038) 13.2 % NEUTROPHILS (test code = 1008) 67.9 % LYMPHOCYTES (test code = 1010) 20.3 % MONOCYTES (test code = 1011) 8.3 % EOSINOPHILS (test code = 1012) 2.4 % BASOPHILS (test code = 1013) 0.9 % IMMATURE GRANULOCYTES (test code = 1036) 0.2 % NUCLEATED RBCS (test code = 1065) 0.0 /100WBC'S PLATELET COUNT (test code = 1015) 294 K/UL ABSOLUTE NEUTROPHILS (test c ode = 1066) 3.69 K/UL ABSOLUTE LYMPHOCYTES (test c ode = 1067) 1.10 K/UL ABSOLUTE MONOCYTES (test cod e = 1068) 0.45 K/UL ABSOLUTE EOSINOPHILS (test c ode = 1040) 0.13 K/UL ABSOLUTE BASOPHILS (test cod e = 1069) 0.05 K/UL ABS IMMATURE GRANULOCYTES (t est code = 1020) 0.01 K/UL ABS NUCLEATED RBCS (test cod e = 05444) 0.00 K/UL Juan J Gallegos AustinLIPID [id number] 00:00:00* Test Item Value Reference Range Interpretation Comme nts CHOLESTEROL (test code = 2210) 292 MG/DL TRIGLYCERIDES (test code = 2232) 135 MG/DL HDL CHOLESTEROL (test code = 2220) 63 MG/DL CALC LDL CHOL (test code = 2237) 200 MG/DL RISK RATIO LDL/HDL (test cod e = 2238) 3.17 RATIO Juan J DowCOMPREHENSIVE METABOLIC [id number] 00:00:00* Test Item Value Reference Range Interpretation Comme nts GLUCOSE (test code = 2217) 128 MG/DL BUN (test code = 2208) 85 MG/DL CREATININE (test code = 2214) 4.86 MG/DL eGFR (2020 CKD-EPI) (test co de = 88749) 12 ML/MIN/1.73 CALC BUN/CREAT (test code = 2235) 17 RATIO SODIUM (test code = 2231) 138 MEQ/L POTASSIUM (test code = 2228) 5.6 MEQ/L CHLORIDE (test code = 2215) 103 MEQ/L CARBON DIOXIDE (test code = 2206) 22 MEQ/L CALCIUM (test code = 2209) 9.9 MG/DL PROTEIN, TOTAL (test code = 2229) 7.2 G/DL ALBUMIN (test code = 2201) 4.2 G/DL CALC GLOBULIN (test code = 2240) 3.0 G/DL CALC A/G RATIO (test code = 2234) 1.4 RATIO BILIRUBIN, TOTAL (test code = 2207) <0.2 MG/DL ALKALINE PHOSPHATASE (test code = 2204) 93 U/L AST (test code = 2218) 28 U/L ALT (test code = 2219) 32 U/L Juan J Gallegos [place]UR[place] W/REFLEX [id number] 00:00:00* Test Item Value Reference Range Interpretation Comme nts COLOR (test code = 1501) YELLOW APPEARANCE (test code = 1502) CLEAR SPECIFIC GRAVITY (test code = 1503) 1.012 LEUKOCYTE ESTERASE (test cod e = 1504) NEGATIVE NITRITE (test code = 1505) NEGATIVE pH (test code = 1506) 5.5 PROTEIN (test code = 1507) 3+ GLUCOSE (test code = 1508) TRACE KETONES (test code = 1509) NEGATIVE UROBILINOGEN (test code = 1510) 0.2 MG/DL BILIRUBIN (test code = 1511) NEGATIVE OCCULT BLOOD (test code = 1512) TRACE WHITE BLOOD CELLS (test code = 1513) 0-5 /HPF RED BLOOD CELLS (test code = 1514) 3-5 /HPF EPITHELIAL CELLS (test code = 42140) 0-5 /HPF BACTERIA (test code = 1515) NONE SEEN CASTS, HYALINE (test code = 1517) TRACE Juan J Gallegos AustinCBC W/AUTO [id number] 00:00:00* Test Item Value Reference Range Interpretation Comme nts WBC (test code = 1001) 5.4 K/UL RBC (test code = 1002) 3.00 M/UL HEMOGLOBIN (test code = 1003) 9.3 G/DL HEMATOCRIT (test code = 1004) 29.2 % MCV (test code = 1005) 97.3 fL MCH (test code = 1006) 31.0 PG MCHC (test code = 1007) 31.8 G/DL RDW (test code = 1038) 13.2 % NEUTROPHILS (test code = 1008) 67.9 % LYMPHOCYTES (test code = 1010) 20.3 % MONOCYTES (test code = 1011) 8.3 % EOSINOPHILS (test code = 1012) 2.4 % BASOPHILS (test code = 1013) 0.9 % IMMATURE GRANULOCYTES (test code = 1036) 0.2 % NUCLEATED RBCS (test code = 1065) 0.0 /100WBC'S PLATELET COUNT (test code = 1015) 294 K/UL ABSOLUTE NEUTROPHILS (test c ode = 1066) 3.69 K/UL ABSOLUTE LYMPHOCYTES (test c ode = 1067) 1.10 K/UL ABSOLUTE MONOCYTES (test cod e = 1068) 0.45 K/UL ABSOLUTE EOSINOPHILS (test c ode = 1040) 0.13 K/UL ABSOLUTE BASOPHILS (test cod e = 1069) 0.05 K/UL ABS IMMATURE GRANULOCYTES (t est code = 1020) 0.01 K/UL ABS NUCLEATED RBCS (test cod e = 69746) 0.00 K/UL Juan J Gallegos Austin[place]IP[place] [id number] 00:00:00* Test Item Value Reference Range Interpretation Comme nts CHOLESTEROL (test code = 2210) 292 MG/DL TRIGLYCERIDES (test code = 2232) 135 MG/DL HDL CHOLESTEROL (test code = 2220) 63 MG/DL CALC LDL CHOL (test code = 2237) 200 MG/DL RISK RATIO LDL/HDL (test cod e = 2238) 3.17 RATIO Juan J DowCOMPREHENSIVE METABOLIC [id number] 00:00:00* Test Item Value Reference Range Interpretation Comme nts GLUCOSE (test code = 2217) 128 MG/DL BUN (test code = 2208) 85 MG/DL CREATININE (test code = 2214) 4.86 MG/DL eGFR (2020 CKD-EPI) (test co de = 17720) 12 ML/MIN/1.73 CALC BUN/CREAT (test code = 2235) 17 RATIO SODIUM (test code = 2231) 138 MEQ/L POTASSIUM (test code = 2228) 5.6 MEQ/L CHLORIDE (test code = 2215) 103 MEQ/L CARBON DIOXIDE (test code = 2206) 22 MEQ/L CALCIUM (test code = 2209) 9.9 MG/DL PROTEIN, TOTAL (test code = 2229) 7.2 G/DL ALBUMIN (test code = 2201) 4.2 G/DL CALC GLOBULIN (test code = 2240) 3.0 G/DL CALC A/G RATIO (test code = 2234) 1.4 RATIO BILIRUBIN, TOTAL (test code = 2207) <0.2 MG/DL ALKALINE PHOSPHATASE (test code = 2204) 93 U/L AST (test code = 2218) 28 U/L ALT (test code = 2219) 32 U/L Juan J Gallegos AustinURINALYSIS W/REFLEX [id number] 00:00:00* Test Item Value Reference Range Interpretation Comme nts COLOR (test code = 1501) YELLOW APPEARANCE (test code = 1502) CLEAR SPECIFIC GRAVITY (test code = 1503) 1.012 LEUKOCYTE ESTERASE (test cod e = 1504) NEGATIVE NITRITE (test code = 1505) NEGATIVE pH (test code = 1506) 5.5 PROTEIN (test code = 1507) 3+ GLUCOSE (test code = 1508) TRACE KETONES (test code = 1509) NEGATIVE UROBILINOGEN (test code = 1510) 0.2 MG/DL BILIRUBIN (test code = 1511) NEGATIVE OCCULT BLOOD (test code = 1512) TRACE WHITE BLOOD CELLS (test code = 1513) 0-5 /HPF RED BLOOD CELLS (test code = 1514) 3-5 /HPF EPITHELIAL CELLS (test code = 00140) 0-5 /HPF BACTERIA (test code = 1515) NONE SEEN CASTS, HYALINE (test code = 1517) TRACE Juan J Gallegos AustinCBC W/AUTO [id number] 00:00:00* Test Item Value Reference Range Interpretation Comme nts WBC (test code = 1001) 5.4 K/UL RBC (test code = 1002) 3.00 M/UL HEMOGLOBIN (test code = 1003) 9.3 G/DL HEMATOCRIT (test code = 1004) 29.2 % MCV (test code = 1005) 97.3 fL MCH (test code = 1006) 31.0 PG MCHC (test code = 1007) 31.8 G/DL RDW (test code = 1038) 13.2 % NEUTROPHILS (test code = 1008) 67.9 % LYMPHOCYTES (test code = 1010) 20.3 % MONOCYTES (test code = 1011) 8.3 % EOSINOPHILS (test code = 1012) 2.4 % BASOPHILS (test code = 1013) 0.9 % IMMATURE GRANULOCYTES (test code = 1036) 0.2 % NUCLEATED RBCS (test code = 1065) 0.0 /100WBC'S PLATELET COUNT (test code = 1015) 294 K/UL ABSOLUTE NEUTROPHILS (test c ode = 1066) 3.69 K/UL ABSOLUTE LYMPHOCYTES (test c ode = 1067) 1.10 K/UL ABSOLUTE MONOCYTES (test cod e = 1068) 0.45 K/UL ABSOLUTE EOSINOPHILS (test c ode = 1040) 0.13 K/UL ABSOLUTE BASOPHILS (test cod e = 1069) 0.05 K/UL ABS IMMATURE GRANULOCYTES (t est code = 1020) 0.01 K/UL ABS NUCLEATED RBCS (test cod e = 88331) 0.00 K/UL Juan J Gallegos AustinLIP[place] [id number] 00:00:00* Test Item Value Reference Range Interpretation Comme nts CHOLESTEROL (test code = 2210) 292 MG/DL TRIGLYCERIDES (test code = 2232) 135 MG/DL HDL CHOLESTEROL (test code = 2220) 63 MG/DL CALC LDL CHOL (test code = 2237) 200 MG/DL RISK RATIO LDL/HDL (test cod e = 2238) 3.17 RATIO Juan J DowCOMPREHENSIVE METABOLIC [id number] 00:00:00* Test Item Value Reference Range Interpretation Comme nts GLUCOSE (test code = 2217) 128 MG/DL BUN (test code = 2208) 85 MG/DL CREATININE (test code = 2214) 4.86 MG/DL eGFR (2020 CKD-EPI) (test co de = 70474) 12 ML/MIN/1.73 CALC BUN/CREAT (test code = 2235) 17 RATIO SODIUM (test code = 2231) 138 MEQ/L POTASSIUM (test code = 2228) 5.6 MEQ/L CHLORIDE (test code = 2215) 103 MEQ/L CARBON DIOXIDE (test code = 2206) 22 MEQ/L CALCIUM (test code = 2209) 9.9 MG/DL PROTEIN, TOTAL (test code = 2229) 7.2 G/DL ALBUMIN (test code = 2201) 4.2 G/DL CALC GLOBULIN (test code = 2240) 3.0 G/DL CALC A/G RATIO (test code = 2234) 1.4 RATIO BILIRUBIN, TOTAL (test code = 2207) <0.2 MG/DL ALKALINE PHOSPHATASE (test code = 2204) 93 U/L AST (test code = 2218) 28 U/L ALT (test code = 2219) 32 U/L Juan J Gallegos AustinURINALYSIS W/REFLEX [id number] 00:00:00* Test Item Value Reference Range Interpretation Comme nts COLOR (test code = 1501) YELLOW APPEARANCE (test code = 1502) CLEAR SPECIFIC GRAVITY (test code = 1503) 1.012 LEUKOCYTE ESTERASE (test cod e = 1504) NEGATIVE NITRITE (test code = 1505) NEGATIVE pH (test code = 1506) 5.5 PROTEIN (test code = 1507) 3+ GLUCOSE (test code = 1508) TRACE KETONES (test code = 1509) NEGATIVE UROBILINOGEN (test code = 1510) 0.2 MG/DL BILIRUBIN (test code = 1511) NEGATIVE OCCULT BLOOD (test code = 1512) TRACE WHITE BLOOD CELLS (test code = 1513) 0-5 /HPF RED BLOOD CELLS (test code = 1514) 3-5 /HPF EPITHELIAL CELLS (test code = 19163) 0-5 /HPF BACTERIA (test code = 1515) NONE SEEN CASTS, HYALINE (test code = 1517) TRACE Juan J Gallegos AustinCBC W/AUTO [id number] 00:00:00* Test Item Value Reference Range Interpretation Comme nts WBC (test code = 1001) 5.4 K/UL RBC (test code = 1002) 3.00 M/UL HEMOGLOBIN (test code = 1003) 9.3 G/DL HEMATOCRIT (test code = 1004) 29.2 % MCV (test code = 1005) 97.3 fL MCH (test code = 1006) 31.0 PG MCHC (test code = 1007) 31.8 G/DL RDW (test code = 1038) 13.2 % NEUTROPHILS (test code = 1008) 67.9 % LYMPHOCYTES (test code = 1010) 20.3 % MONOCYTES (test code = 1011) 8.3 % EOSINOPHILS (test code = 1012) 2.4 % BASOPHILS (test code = 1013) 0.9 % IMMATURE GRANULOCYTES (test code = 1036) 0.2 % NUCLEATED RBCS (test code = 1065) 0.0 /100WBC'S PLATELET COUNT (test code = 1015) 294 K/UL ABSOLUTE NEUTROPHILS (test c ode = 1066) 3.69 K/UL ABSOLUTE LYMPHOCYTES (test c ode = 1067) 1.10 K/UL ABSOLUTE MONOCYTES (test cod e = 1068) 0.45 K/UL ABSOLUTE EOSINOPHILS (test c ode = 1040) 0.13 K/UL ABSOLUTE BASOPHILS (test cod e = 1069) 0.05 K/UL ABS IMMATURE GRANULOCYTES (t est code = 1020) 0.01 K/UL ABS NUCLEATED RBCS (test cod e = 91827) 0.00 K/UL Juan J Gallegos [place]LIP[place] [id number] 00:00:00* Test Item Value Reference Range Interpretation Comme nts CHOLESTEROL (test code = 2210) 292 MG/DL TRIGLYCERIDES (test code = 2232) 135 MG/DL HDL CHOLESTEROL (test code = 2220) 63 MG/DL CALC LDL CHOL (test code = 2237) 200 MG/DL RISK RATIO LDL/HDL (test cod e = 2238) 3.17 RATIO Juan J DowCOMPREHENSIVE METABOLIC [id number] 00:00:00* Test Item Value Reference Range Interpretation Comme nts GLUCOSE (test code = 2217) 128 MG/DL BUN (test code = 2208) 85 MG/DL CREATININE (test code = 2214) 4.86 MG/DL eGFR (2020 CKD-EPI) (test co de = 39437) 12 ML/MIN/1.73 CALC BUN/CREAT (test code = 2235) 17 RATIO SODIUM (test code = 2231) 138 MEQ/L POTASSIUM (test code = 2228) 5.6 MEQ/L CHLORIDE (test code = 2215) 103 MEQ/L CARBON DIOXIDE (test code = 2206) 22 MEQ/L CALCIUM (test code = 2209) 9.9 MG/DL PROTEIN, TOTAL (test code = 2229) 7.2 G/DL ALBUMIN (test code = 2201) 4.2 G/DL CALC GLOBULIN (test code = 2240) 3.0 G/DL CALC A/G RATIO (test code = 2234) 1.4 RATIO BILIRUBIN, TOTAL (test code = 2207) <0.2 MG/DL ALKALINE PHOSPHATASE (test code = 2204) 93 U/L AST (test code = 2218) 28 U/L ALT (test code = 2219) 32 U/L Juan J Gallegos AustinURINALYSIS W/REFLEX [id number] 00:00:00* Test Item Value Reference Range Interpretation Comme nts COLOR (test code = 1501) YELLOW APPEARANCE (test code = 1502) CLEAR SPECIFIC GRAVITY (test code = 1503) 1.012 LEUKOCYTE ESTERASE (test cod e = 1504) NEGATIVE NITRITE (test code = 1505) NEGATIVE pH (test code = 1506) 5.5 PROTEIN (test code = 1507) 3+ GLUCOSE (test code = 1508) TRACE KETONES (test code = 1509) NEGATIVE UROBILINOGEN (test code = 1510) 0.2 MG/DL BILIRUBIN (test code = 1511) NEGATIVE OCCULT BLOOD (test code = 1512) TRACE WHITE BLOOD CELLS (test code = 1513) 0-5 /HPF RED BLOOD CELLS (test code = 1514) 3-5 /HPF EPITHELIAL CELLS (test code = 39999) 0-5 /HPF BACTERIA (test code = 1515) NONE SEEN CASTS, HYALINE (test code = 1517) TRACE Juan J Gallegos AustinCBC W/AUTO [id number] 00:00:00* Test Item Value Reference Range Interpretation Comme nts WBC (test code = 1001) 5.4 K/UL RBC (test code = 1002) 3.00 M/UL HEMOGLOBIN (test code = 1003) 9.3 G/DL HEMATOCRIT (test code = 1004) 29.2 % MCV (test code = 1005) 97.3 fL MCH (test code = 1006) 31.0 PG MCHC (test code = 1007) 31.8 G/DL RDW (test code = 1038) 13.2 % NEUTROPHILS (test code = 1008) 67.9 % LYMPHOCYTES (test code = 1010) 20.3 % MONOCYTES (test code = 1011) 8.3 % EOSINOPHILS (test code = 1012) 2.4 % BASOPHILS (test code = 1013) 0.9 % IMMATURE GRANULOCYTES (test code = 1036) 0.2 % NUCLEATED RBCS (test code = 1065) 0.0 /100WBC'S PLATELET COUNT (test code = 1015) 294 K/UL ABSOLUTE NEUTROPHILS (test c ode = 1066) 3.69 K/UL ABSOLUTE LYMPHOCYTES (test c ode = 1067) 1.10 K/UL ABSOLUTE MONOCYTES (test cod e = 1068) 0.45 K/UL ABSOLUTE EOSINOPHILS (test c ode = 1040) 0.13 K/UL ABSOLUTE BASOPHILS (test cod e = 1069) 0.05 K/UL ABS IMMATURE GRANULOCYTES (t est code = 1020) 0.01 K/UL ABS NUCLEATED RBCS (test cod e = 37325) 0.00 K/UL Juan J Gallegos ColumbusLIP[place] [id number] 00:00:00* Test Item Value Reference Range Interpretation Comme nts CHOLESTEROL (test code = 2210) 292 MG/DL TRIGLYCERIDES (test code = 2232) 135 MG/DL HDL CHOLESTEROL (test code = 2220) 63 MG/DL CALC LDL CHOL (test code = 2237) 200 MG/DL RISK RATIO LDL/HDL (test cod e = 2238) 3.17 RATIO Juan J DowCOMPREHENSIVE METABOLIC [id number] 00:00:00* Test Item Value Reference Range Interpretation Comme nts GLUCOSE (test code = 2217) 128 MG/DL BUN (test code = 2208) 85 MG/DL CREATININE (test code = 2214) 4.86 MG/DL eGFR (2020 CKD-EPI) (test co de = 03993) 12 ML/MIN/1.73 CALC BUN/CREAT (test code = 2235) 17 RATIO SODIUM (test code = 2231) 138 MEQ/L POTASSIUM (test code = 2228) 5.6 MEQ/L CHLORIDE (test code = 2215) 103 MEQ/L CARBON DIOXIDE (test code = 2206) 22 MEQ/L CALCIUM (test code = 2209) 9.9 MG/DL PROTEIN, TOTAL (test code = 2229) 7.2 G/DL ALBUMIN (test code = 2201) 4.2 G/DL CALC GLOBULIN (test code = 2240) 3.0 G/DL CALC A/G RATIO (test code = 2234) 1.4 RATIO BILIRUBIN, TOTAL (test code = 2207) <0.2 MG/DL ALKALINE PHOSPHATASE (test code = 2204) 93 U/L AST (test code = 2218) 28 U/L ALT (test code = 2219) 32 U/L Juan J Gallegos AustinURINALYSIS W/REFLEX [id number] 00:00:00* Test Item Value Reference Range Interpretation Comme nts COLOR (test code = 1501) YELLOW APPEARANCE (test code = 1502) CLEAR SPECIFIC GRAVITY (test code = 1503) 1.012 LEUKOCYTE ESTERASE (test cod e = 1504) NEGATIVE NITRITE (test code = 1505) NEGATIVE pH (test code = 1506) 5.5 PROTEIN (test code = 1507) 3+ GLUCOSE (test code = 1508) TRACE KETONES (test code = 1509) NEGATIVE UROBILINOGEN (test code = 1510) 0.2 MG/DL BILIRUBIN (test code = 1511) NEGATIVE OCCULT BLOOD (test code = 1512) TRACE WHITE BLOOD CELLS (test code = 1513) 0-5 /HPF RED BLOOD CELLS (test code = 1514) 3-5 /HPF EPITHELIAL CELLS (test code = 57900) 0-5 /HPF BACTERIA (test code = 1515) NONE SEEN CASTS, HYALINE (test code = 1517) TRACE Juan J Gallegos AustinCBC W/AUTO [id number] 00:00:00* Test Item Value Reference Range Interpretation Comme nts WBC (test code = 1001) 5.4 K/UL RBC (test code = 1002) 3.00 M/UL HEMOGLOBIN (test code = 1003) 9.3 G/DL HEMATOCRIT (test code = 1004) 29.2 % MCV (test code = 1005) 97.3 fL MCH (test code = 1006) 31.0 PG MCHC (test code = 1007) 31.8 G/DL RDW (test code = 1038) 13.2 % NEUTROPHILS (test code = 1008) 67.9 % LYMPHOCYTES (test code = 1010) 20.3 % MONOCYTES (test code = 1011) 8.3 % EOSINOPHILS (test code = 1012) 2.4 % BASOPHILS (test code = 1013) 0.9 % IMMATURE GRANULOCYTES (test code = 1036) 0.2 % NUCLEATED RBCS (test code = 1065) 0.0 /100WBC'S PLATELET COUNT (test code = 1015) 294 K/UL ABSOLUTE NEUTROPHILS (test c ode = 1066) 3.69 K/UL ABSOLUTE LYMPHOCYTES (test c ode = 1067) 1.10 K/UL ABSOLUTE MONOCYTES (test cod e = 1068) 0.45 K/UL ABSOLUTE EOSINOPHILS (test c ode = 1040) 0.13 K/UL ABSOLUTE BASOPHILS (test cod e = 1069) 0.05 K/UL ABS IMMATURE GRANULOCYTES (t est code = 1020) 0.01 K/UL ABS NUCLEATED RBCS (test cod e = 67564) 0.00 K/UL Juan J DowLIPID [id number] 00:00:00* Test Item Value Reference Range Interpretation Comme nts CHOLESTEROL (test code = 2210) 292 MG/DL TRIGLYCERIDES (test code = 2232) 135 MG/DL HDL CHOLESTEROL (test code = 2220) 63 MG/DL CALC LDL CHOL (test code = 2237) 200 MG/DL RISK RATIO LDL/HDL (test cod e = 2238) 3.17 RATIO Juan J DowCOMPREHENSIVE METABOLIC [id number] 00:00:00* Test Item Value Reference Range Interpretation Comme nts GLUCOSE (test code = 2217) 128 MG/DL BUN (test code = 2208) 85 MG/DL CREATININE (test code = 2214) 4.86 MG/DL eGFR (2020 CKD-EPI) (test co de = 29093) 12 ML/MIN/1.73 CALC BUN/CREAT (test code = 2235) 17 RATIO SODIUM (test code = 2231) 138 MEQ/L POTASSIUM (test code = 2228) 5.6 MEQ/L CHLORIDE (test code = 2215) 103 MEQ/L CARBON DIOXIDE (test code = 2206) 22 MEQ/L CALCIUM (test code = 2209) 9.9 MG/DL PROTEIN, TOTAL (test code = 2229) 7.2 G/DL ALBUMIN (test code = 2201) 4.2 G/DL CALC GLOBULIN (test code = 2240) 3.0 G/DL CALC A/G RATIO (test code = 2234) 1.4 RATIO BILIRUBIN, TOTAL (test code = 2207) <0.2 MG/DL ALKALINE PHOSPHATASE (test code = 2204) 93 U/L AST (test code = 2218) 28 U/L ALT (test code = 2219) 32 U/L Juan J Gallegos [place]UR[place] W/REFLEX [id number] 00:00:00* Test Item Value Reference Range Interpretation Comme nts COLOR (test code = 1501) YELLOW APPEARANCE (test code = 1502) CLEAR SPECIFIC GRAVITY (test code = 1503) 1.012 LEUKOCYTE ESTERASE (test cod e = 1504) NEGATIVE NITRITE (test code = 1505) NEGATIVE pH (test code = 1506) 5.5 PROTEIN (test code = 1507) 3+ GLUCOSE (test code = 1508) TRACE KETONES (test code = 1509) NEGATIVE UROBILINOGEN (test code = 1510) 0.2 MG/DL BILIRUBIN (test code = 1511) NEGATIVE OCCULT BLOOD (test code = 1512) TRACE WHITE BLOOD CELLS (test code = 1513) 0-5 /HPF RED BLOOD CELLS (test code = 1514) 3-5 /HPF EPITHELIAL CELLS (test code = 81448) 0-5 /HPF BACTERIA (test code = 1515) NONE SEEN CASTS, HYALINE (test code = 1517) TRACE Juan J Gallegos AustinCBC W/AUTO [id number] 00:00:00* Test Item Value Reference Range Interpretation Comme nts WBC (test code = 1001) 5.4 K/UL RBC (test code = 1002) 3.00 M/UL HEMOGLOBIN (test code = 1003) 9.3 G/DL HEMATOCRIT (test code = 1004) 29.2 % MCV (test code = 1005) 97.3 fL MCH (test code = 1006) 31.0 PG MCHC (test code = 1007) 31.8 G/DL RDW (test code = 1038) 13.2 % NEUTROPHILS (test code = 1008) 67.9 % LYMPHOCYTES (test code = 1010) 20.3 % MONOCYTES (test code = 1011) 8.3 % EOSINOPHILS (test code = 1012) 2.4 % BASOPHILS (test code = 1013) 0.9 % IMMATURE GRANULOCYTES (test code = 1036) 0.2 % NUCLEATED RBCS (test code = 1065) 0.0 /100WBC'S PLATELET COUNT (test code = 1015) 294 K/UL ABSOLUTE NEUTROPHILS (test c ode = 1066) 3.69 K/UL ABSOLUTE LYMPHOCYTES (test c ode = 1067) 1.10 K/UL ABSOLUTE MONOCYTES (test cod e = 1068) 0.45 K/UL ABSOLUTE EOSINOPHILS (test c ode = 1040) 0.13 K/UL ABSOLUTE BASOPHILS (test cod e = 1069) 0.05 K/UL ABS IMMATURE GRANULOCYTES (t est code = 1020) 0.01 K/UL ABS NUCLEATED RBCS (test cod e = 56674) 0.00 K/UL Juan J Gallegos Victor MLIPID [id number] 00:00:00* Test Item Value Reference Range Interpretation Comme nts CHOLESTEROL (test code = 2210) 292 MG/DL TRIGLYCERIDES (test code = 2232) 135 MG/DL HDL CHOLESTEROL (test code = 2220) 63 MG/DL CALC LDL CHOL (test code = 2237) 200 MG/DL RISK RATIO LDL/HDL (test cod e = 2238) 3.17 RATIO Juan J Gallegos Victor MCOMPREHENSIVE METABOLIC [id number] 00:00:00* Test Item Value Reference Range Interpretation Comme nts GLUCOSE (test code = 2217) 128 MG/DL BUN (test code = 2208) 85 MG/DL CREATININE (test code = 2214) 4.86 MG/DL eGFR (2020 CKD-EPI) (test co de = 88496) 12 ML/MIN/1.73 CALC BUN/CREAT (test code = 2235) 17 RATIO SODIUM (test code = 2231) 138 MEQ/L POTASSIUM (test code = 2228) 5.6 MEQ/L CHLORIDE (test code = 2215) 103 MEQ/L CARBON DIOXIDE (test code = 2206) 22 MEQ/L CALCIUM (test code = 2209) 9.9 MG/DL PROTEIN, TOTAL (test code = 2229) 7.2 G/DL ALBUMIN (test code = 2201) 4.2 G/DL CALC GLOBULIN (test code = 2240) 3.0 G/DL CALC A/G RATIO (test code = 2234) 1.4 RATIO BILIRUBIN, TOTAL (test code = 2207) <0.2 MG/DL ALKALINE PHOSPHATASE (test code = 2204) 93 U/L AST (test code = 2218) 28 U/L ALT (test code = 2219) 32 U/L Juan J Gallegos Victor MURINALYSIS W/REFLEX [id number] 00:00:00* Test Item Value Reference Range Interpretation Comme nts COLOR (test code = 1501) YELLOW APPEARANCE (test code = 1502) CLEAR SPECIFIC GRAVITY (test code = 1503) 1.012 LEUKOCYTE ESTERASE (test cod e = 1504) NEGATIVE NITRITE (test code = 1505) NEGATIVE pH (test code = 1506) 5.5 PROTEIN (test code = 1507) 3+ GLUCOSE (test code = 1508) TRACE KETONES (test code = 1509) NEGATIVE UROBILINOGEN (test code = 1510) 0.2 MG/DL BILIRUBIN (test code = 1511) NEGATIVE OCCULT BLOOD (test code = 1512) TRACE WHITE BLOOD CELLS (test code = 1513) 0-5 /HPF RED BLOOD CELLS (test code = 1514) 3-5 /HPF EPITHELIAL CELLS (test code = 76565) 0-5 /HPF BACTERIA (test code = 1515) NONE SEEN CASTS, HYALINE (test code = 1517) TRACE Juan J F [facility] W/AUTO [id number] 00:00:00* Test Item Value Reference Range Interpretation Comme nts WBC (test code = 1001) 5.4 K/UL RBC (test code = 1002) 3.00 M/UL HEMOGLOBIN (test code = 1003) 9.3 G/DL HEMATOCRIT (test code = 1004) 29.2 % MCV (test code = 1005) 97.3 fL MCH (test code = 1006) 31.0 PG MCHC (test code = 1007) 31.8 G/DL RDW (test code = 1038) 13.2 % NEUTROPHILS (test code = 1008) 67.9 % LYMPHOCYTES (test code = 1010) 20.3 % MONOCYTES (test code = 1011) 8.3 % EOSINOPHILS (test code = 1012) 2.4 % BASOPHILS (test code = 1013) 0.9 % IMMATURE GRANULOCYTES (test code = 1036) 0.2 % NUCLEATED RBCS (test code = 1065) 0.0 /100WBC'S PLATELET COUNT (test code = 1015) 294 K/UL ABSOLUTE NEUTROPHILS (test c ode = 1066) 3.69 K/UL ABSOLUTE LYMPHOCYTES (test c ode = 1067) 1.10 K/UL ABSOLUTE MONOCYTES (test cod e = 1068) 0.45 K/UL ABSOLUTE EOSINOPHILS (test c ode = 1040) 0.13 K/UL ABSOLUTE BASOPHILS (test cod e = 1069) 0.05 K/UL ABS IMMATURE GRANULOCYTES (t est code = 1020) 0.01 K/UL ABS NUCLEATED RBCS (test cod e = 29659) 0.00 K/UL Juan J DowLIPID [id number] 00:00:00* Test Item Value Reference Range Interpretation Comme nts CHOLESTEROL (test code = 2210) 292 MG/DL TRIGLYCERIDES (test code = 2232) 135 MG/DL HDL CHOLESTEROL (test code = 2220) 63 MG/DL CALC LDL CHOL (test code = 2237) 200 MG/DL RISK RATIO LDL/HDL (test cod e = 2238) 3.17 RATIO Juan J DowCOMPREHENSIVE METABOLIC [id number] 00:00:00* Test Item Value Reference Range Interpretation Comme nts GLUCOSE (test code = 2217) 128 MG/DL BUN (test code = 2208) 85 MG/DL CREATININE (test code = 2214) 4.86 MG/DL eGFR (2020 CKD-EPI) (test co de = 55391) 12 ML/MIN/1.73 CALC BUN/CREAT (test code = 2235) 17 RATIO SODIUM (test code = 2231) 138 MEQ/L POTASSIUM (test code = 2228) 5.6 MEQ/L CHLORIDE (test code = 2215) 103 MEQ/L CARBON DIOXIDE (test code = 2206) 22 MEQ/L CALCIUM (test code = 2209) 9.9 MG/DL PROTEIN, TOTAL (test code = 2229) 7.2 G/DL ALBUMIN (test code = 2201) 4.2 G/DL CALC GLOBULIN (test code = 2240) 3.0 G/DL CALC A/G RATIO (test code = 2234) 1.4 RATIO BILIRUBIN, TOTAL (test code = 2207) <0.2 MG/DL ALKALINE PHOSPHATASE (test code = 2204) 93 U/L AST (test code = 2218) 28 U/L ALT (test code = 2219) 32 U/L Juan J Gallegos [place] W/REFLEX [id number] 00:00:00* Test Item Value Reference Range Interpretation Comme nts COLOR (test code = 1501) YELLOW APPEARANCE (test code = 1502) CLEAR SPECIFIC GRAVITY (test code = 1503) 1.012 LEUKOCYTE ESTERASE (test cod e = 1504) NEGATIVE NITRITE (test code = 1505) NEGATIVE pH (test code = 1506) 5.5 PROTEIN (test code = 1507) 3+ GLUCOSE (test code = 1508) TRACE KETONES (test code = 1509) NEGATIVE UROBILINOGEN (test code = 1510) 0.2 MG/DL BILIRUBIN (test code = 1511) NEGATIVE OCCULT BLOOD (test code = 1512) TRACE WHITE BLOOD CELLS (test code = 1513) 0-5 /HPF RED BLOOD CELLS (test code = 1514) 3-5 /HPF EPITHELIAL CELLS (test code = 04705) 0-5 /HPF BACTERIA (test code = 1515) NONE SEEN CASTS, HYALINE (test code = 1517) TRACE Juan J Gallegos [facility] W/AUTO [id number] 00:00:00* Test Item Value Reference Range Interpretation Comme nts WBC (test code = 1001) 5.4 K/UL RBC (test code = 1002) 3.00 M/UL HEMOGLOBIN (test code = 1003) 9.3 G/DL HEMATOCRIT (test code = 1004) 29.2 % MCV (test code = 1005) 97.3 fL MCH (test code = 1006) 31.0 PG MCHC (test code = 1007) 31.8 G/DL RDW (test code = 1038) 13.2 % NEUTROPHILS (test code = 1008) 67.9 % LYMPHOCYTES (test code = 1010) 20.3 % MONOCYTES (test code = 1011) 8.3 % EOSINOPHILS (test code = 1012) 2.4 % BASOPHILS (test code = 1013) 0.9 % IMMATURE GRANULOCYTES (test code = 1036) 0.2 % NUCLEATED RBCS (test code = 1065) 0.0 /100WBC'S PLATELET COUNT (test code = 1015) 294 K/UL ABSOLUTE NEUTROPHILS (test c ode = 1066) 3.69 K/UL ABSOLUTE LYMPHOCYTES (test c ode = 1067) 1.10 K/UL ABSOLUTE MONOCYTES (test cod e = 1068) 0.45 K/UL ABSOLUTE EOSINOPHILS (test c ode = 1040) 0.13 K/UL ABSOLUTE BASOPHILS (test cod e = 1069) 0.05 K/UL ABS IMMATURE GRANULOCYTES (t est code = 1020) 0.01 K/UL ABS NUCLEATED RBCS (test cod e = 81098) 0.00 K/UL Juan J DowLIPID [id number] 00:00:00* Test Item Value Reference Range Interpretation Comme nts CHOLESTEROL (test code = 2210) 292 MG/DL TRIGLYCERIDES (test code = 2232) 135 MG/DL HDL CHOLESTEROL (test code = 2220) 63 MG/DL CALC LDL CHOL (test code = 2237) 200 MG/DL RISK RATIO LDL/HDL (test cod e = 2238) 3.17 RATIO Juan J DowCOMPREHENSIVE METABOLIC [id number] 00:00:00* Test Item Value Reference Range Interpretation Comme nts GLUCOSE (test code = 2217) 128 MG/DL BUN (test code = 2208) 85 MG/DL CREATININE (test code = 2214) 4.86 MG/DL eGFR (2020 CKD-EPI) (test co de = 04909) 12 ML/MIN/1.73 CALC BUN/CREAT (test code = 2235) 17 RATIO SODIUM (test code = 2231) 138 MEQ/L POTASSIUM (test code = 2228) 5.6 MEQ/L CHLORIDE (test code = 2215) 103 MEQ/L CARBON DIOXIDE (test code = 2206) 22 MEQ/L CALCIUM (test code = 2209) 9.9 MG/DL PROTEIN, TOTAL (test code = 2229) 7.2 G/DL ALBUMIN (test code = 2201) 4.2 G/DL CALC GLOBULIN (test code = 2240) 3.0 G/DL CALC A/G RATIO (test code = 2234) 1.4 RATIO BILIRUBIN, TOTAL (test code = 2207) <0.2 MG/DL ALKALINE PHOSPHATASE (test code = 2204) 93 U/L AST (test code = 2218) 28 U/L ALT (test code = 2219) 32 U/L Juan J Gallegos [place]/REFLEX [id number] 00:00:00* Test Item Value Reference Range Interpretation Comme nts COLOR (test code = 1501) YELLOW APPEARANCE (test code = 1502) CLEAR SPECIFIC GRAVITY (test code = 1503) 1.012 LEUKOCYTE ESTERASE (test cod e = 1504) NEGATIVE NITRITE (test code = 1505) NEGATIVE pH (test code = 1506) 5.5 PROTEIN (test code = 1507) 3+ GLUCOSE (test code = 1508) TRACE KETONES (test code = 1509) NEGATIVE UROBILINOGEN (test code = 1510) 0.2 MG/DL BILIRUBIN (test code = 1511) NEGATIVE OCCULT BLOOD (test code = 1512) TRACE WHITE BLOOD CELLS (test code = 1513) 0-5 /HPF RED BLOOD CELLS (test code = 1514) 3-5 /HPF EPITHELIAL CELLS (test code = 50203) 0-5 /HPF BACTERIA (test code = 1515) NONE SEEN CASTS, HYALINE (test code = 1517) TRACE Juan J DowCBC W/AUTO [id number] 00:00:00* Test Item Value Reference Range Interpretation Comme nts WBC (test code = 1001) 5.4 K/UL RBC (test code = 1002) 3.00 M/UL HEMOGLOBIN (test code = 1003) 9.3 G/DL HEMATOCRIT (test code = 1004) 29.2 % MCV (test code = 1005) 97.3 fL MCH (test code = 1006) 31.0 PG MCHC (test code = 1007) 31.8 G/DL RDW (test code = 1038) 13.2 % NEUTROPHILS (test code = 1008) 67.9 % LYMPHOCYTES (test code = 1010) 20.3 % MONOCYTES (test code = 1011) 8.3 % EOSINOPHILS (test code = 1012) 2.4 % BASOPHILS (test code = 1013) 0.9 % IMMATURE GRANULOCYTES (test code = 1036) 0.2 % NUCLEATED RBCS (test code = 1065) 0.0 /100WBC'S PLATELET COUNT (test code = 1015) 294 K/UL ABSOLUTE NEUTROPHILS (test c ode = 1066) 3.69 K/UL ABSOLUTE LYMPHOCYTES (test c ode = 1067) 1.10 K/UL ABSOLUTE MONOCYTES (test cod e = 1068) 0.45 K/UL ABSOLUTE EOSINOPHILS (test c ode = 1040) 0.13 K/UL ABSOLUTE BASOPHILS (test cod e = 1069) 0.05 K/UL ABS IMMATURE GRANULOCYTES (t est code = 1020) 0.01 K/UL ABS NUCLEATED RBCS (test cod e = 28599) 0.00 K/UL Juan J DowLIPID [id number] 00:00:00* Test Item Value Reference Range Interpretation Comme nts CHOLESTEROL (test code = 2210) 292 MG/DL TRIGLYCERIDES (test code = 2232) 135 MG/DL HDL CHOLESTEROL (test code = 2220) 63 MG/DL CALC LDL CHOL (test code = 2237) 200 MG/DL RISK RATIO LDL/HDL (test cod e = 2238) 3.17 RATIO Juan J DowCBC W/AUTO [id number] 00:00:00* Test Item Value Reference Range Interpretation Comme nts WBC (test code = 1001) 5.4 K/UL RBC (test code = 1002) 3.00 M/UL HEMOGLOBIN (test code = 1003) 9.3 G/DL HEMATOCRIT (test code = 1004) 29.2 % MCV (test code = 1005) 97.3 fL MCH (test code = 1006) 31.0 PG MCHC (test code = 1007) 31.8 G/DL RDW (test code = 1038) 13.2 % NEUTROPHILS (test code = 1008) 67.9 % LYMPHOCYTES (test code = 1010) 20.3 % MONOCYTES (test code = 1011) 8.3 % EOSINOPHILS (test code = 1012) 2.4 % BASOPHILS (test code = 1013) 0.9 % IMMATURE GRANULOCYTES (test code = 1036) 0.2 % NUCLEATED RBCS (test code = 1065) 0.0 /100WBC'S PLATELET COUNT (test code = 1015) 294 K/UL ABSOLUTE NEUTROPHILS (test c ode = 1066) 3.69 K/UL ABSOLUTE LYMPHOCYTES (test c ode = 1067) 1.10 K/UL ABSOLUTE MONOCYTES (test cod e = 1068) 0.45 K/UL ABSOLUTE EOSINOPHILS (test c ode = 1040) 0.13 K/UL ABSOLUTE BASOPHILS (test cod e = 1069) 0.05 K/UL ABS IMMATURE GRANULOCYTES (t est code = 1020) 0.01 K/UL ABS NUCLEATED RBCS (test cod e = 52579) 0.00 K/UL Juan J DowLIPID [id number] 00:00:00* Test Item Value Reference Range Interpretation Comme nts CHOLESTEROL (test code = 2210) 292 MG/DL TRIGLYCERIDES (test code = 2232) 135 MG/DL HDL CHOLESTEROL (test code = 2220) 63 MG/DL CALC LDL CHOL (test code = 2237) 200 MG/DL RISK RATIO LDL/HDL (test cod e = 2238) 3.17 RATIO Juan J DowCOMPREHENSIVE METABOLIC [id number] 00:00:00* Test Item Value Reference Range Interpretation Comme nts GLUCOSE (test code = 2217) 128 MG/DL BUN (test code = 2208) 85 MG/DL CREATININE (test code = 2214) 4.86 MG/DL eGFR (2020 CKD-EPI) (test co de = 81842) 12 ML/MIN/1.73 CALC BUN/CREAT (test code = 2235) 17 RATIO SODIUM (test code = 2231) 138 MEQ/L POTASSIUM (test code = 2228) 5.6 MEQ/L CHLORIDE (test code = 2215) 103 MEQ/L CARBON DIOXIDE (test code = 2206) 22 MEQ/L CALCIUM (test code = 2209) 9.9 MG/DL PROTEIN, TOTAL (test code = 2229) 7.2 G/DL ALBUMIN (test code = 2201) 4.2 G/DL CALC GLOBULIN (test code = 2240) 3.0 G/DL CALC A/G RATIO (test code = 2234) 1.4 RATIO BILIRUBIN, TOTAL (test code = 2207) <0.2 MG/DL ALKALINE PHOSPHATASE (test code = 2204) 93 U/L AST (test code = 2218) 28 U/L ALT (test code = 2219) 32 U/L Juan [facility]legos [facility] [id number] 00:00:00* Test Item Value Reference Range Interpretation Comme nts GLUCOSE (test code = 2217) 128 MG/DL BUN (test code = 2208) 85 MG/DL CREATININE (test code = 2214) 4.86 MG/DL eGFR (2020 CKD-EPI) (test co de = 04566) 12 ML/MIN/1.73 CALC BUN/CREAT (test code = 2235) 17 RATIO SODIUM (test code = 2231) 138 MEQ/L POTASSIUM (test code = 2228) 5.6 MEQ/L CHLORIDE (test code = 2215) 103 MEQ/L CARBON DIOXIDE (test code = 2206) 22 MEQ/L CALCIUM (test code = 2209) 9.9 MG/DL PROTEIN, TOTAL (test code = 2229) 7.2 G/DL ALBUMIN (test code = 2201) 4.2 G/DL CALC GLOBULIN (test code = 2240) 3.0 G/DL CALC A/G RATIO (test code = 2234) 1.4 RATIO BILIRUBIN, TOTAL (test code = 2207) <0.2 MG/DL ALKALINE PHOSPHATASE (test code = 2204) 93 U/L AST (test code = 2218) 28 U/L ALT (test code = 2219) 32 U/L Juan J Gallegos [place] W/REFLEX [id number] 00:00:00* Test Item Value Reference Range Interpretation Comme nts COLOR (test code = 1501) YELLOW APPEARANCE (test code = 1502) CLEAR SPECIFIC GRAVITY (test code = 1503) 1.012 LEUKOCYTE ESTERASE (test cod e = 1504) NEGATIVE NITRITE (test code = 1505) NEGATIVE pH (test code = 1506) 5.5 PROTEIN (test code = 1507) 3+ GLUCOSE (test code = 1508) TRACE KETONES (test code = 1509) NEGATIVE UROBILINOGEN (test code = 1510) 0.2 MG/DL BILIRUBIN (test code = 1511) NEGATIVE OCCULT BLOOD (test code = 1512) TRACE WHITE BLOOD CELLS (test code = 1513) 0-5 /HPF RED BLOOD CELLS (test code = 1514) 3-5 /HPF EPITHELIAL CELLS (test code = 85312) 0-5 /HPF BACTERIA (test code = 1515) NONE SEEN CASTS, HYALINE (test code = 1517) TRACE Juan J Gallegos [place]UR[place] W/REFLEX [id number] 00:00:00* Test Item Value Reference Range Interpretation Comme nts COLOR (test code = 1501) YELLOW APPEARANCE (test code = 1502) CLEAR SPECIFIC GRAVITY (test code = 1503) 1.012 LEUKOCYTE ESTERASE (test cod e = 1504) NEGATIVE NITRITE (test code = 1505) NEGATIVE pH (test code = 1506) 5.5 PROTEIN (test code = 1507) 3+ GLUCOSE (test code = 1508) TRACE KETONES (test code = 1509) NEGATIVE UROBILINOGEN (test code = 1510) 0.2 MG/DL BILIRUBIN (test code = 1511) NEGATIVE OCCULT BLOOD (test code = 1512) TRACE WHITE BLOOD CELLS (test code = 1513) 0-5 /HPF RED BLOOD CELLS (test code = 1514) 3-5 /HPF EPITHELIAL CELLS (test code = 98558) 0-5 /HPF BACTERIA (test code = 1515) NONE SEEN CASTS, HYALINE (test code = 1517) TRACE Juan J DowCBC W/AUTO [id number] 00:00:00* Test Item Value Reference Range Interpretation Comme nts WBC (test code = 1001) 5.4 K/UL RBC (test code = 1002) 3.00 M/UL HEMOGLOBIN (test code = 1003) 9.3 G/DL HEMATOCRIT (test code = 1004) 29.2 % MCV (test code = 1005) 97.3 fL MCH (test code = 1006) 31.0 PG MCHC (test code = 1007) 31.8 G/DL RDW (test code = 1038) 13.2 % NEUTROPHILS (test code = 1008) 67.9 % LYMPHOCYTES (test code = 1010) 20.3 % MONOCYTES (test code = 1011) 8.3 % EOSINOPHILS (test code = 1012) 2.4 % BASOPHILS (test code = 1013) 0.9 % IMMATURE GRANULOCYTES (test code = 1036) 0.2 % NUCLEATED RBCS (test code = 1065) 0.0 /100WBC'S PLATELET COUNT (test code = 1015) 294 K/UL ABSOLUTE NEUTROPHILS (test c ode = 1066) 3.69 K/UL ABSOLUTE LYMPHOCYTES (test c ode = 1067) 1.10 K/UL ABSOLUTE MONOCYTES (test cod e = 1068) 0.45 K/UL ABSOLUTE EOSINOPHILS (test c ode = 1040) 0.13 K/UL ABSOLUTE BASOPHILS (test cod e = 1069) 0.05 K/UL ABS IMMATURE GRANULOCYTES (t est code = 1020) 0.01 K/UL ABS NUCLEATED RBCS (test cod e = 32794) 0.00 K/UL Juan J DowLIPID [id number] 00:00:00* Test Item Value Reference Range Interpretation Comme nts CHOLESTEROL (test code = 2210) 292 MG/DL TRIGLYCERIDES (test code = 2232) 135 MG/DL HDL CHOLESTEROL (test code = 2220) 63 MG/DL CALC LDL CHOL (test code = 2237) 200 MG/DL RISK RATIO LDL/HDL (test cod e = 2238) 3.17 RATIO Juan J DowCOMPREHENSIVE METABOLIC [id number] 00:00:00* Test Item Value Reference Range Interpretation Comme nts GLUCOSE (test code = 2217) 128 MG/DL BUN (test code = 2208) 85 MG/DL CREATININE (test code = 2214) 4.86 MG/DL eGFR (2020 CKD-EPI) (test co de = 04880) 12 ML/MIN/1.73 CALC BUN/CREAT (test code = 2235) 17 RATIO SODIUM (test code = 2231) 138 MEQ/L POTASSIUM (test code = 2228) 5.6 MEQ/L CHLORIDE (test code = 2215) 103 MEQ/L CARBON DIOXIDE (test code = 2206) 22 MEQ/L CALCIUM (test code = 2209) 9.9 MG/DL PROTEIN, TOTAL (test code = 2229) 7.2 G/DL ALBUMIN (test code = 2201) 4.2 G/DL CALC GLOBULIN (test code = 2240) 3.0 G/DL CALC A/G RATIO (test code = 2234) 1.4 RATIO BILIRUBIN, TOTAL (test code = 2207) <0.2 MG/DL ALKALINE PHOSPHATASE (test code = 2204) 93 U/L AST (test code = 2218) 28 U/L ALT (test code = 2219) 32 U/L Juan J Gallegos [place] W/REFLEX [id number] 00:00:00* Test Item Value Reference Range Interpretation Comme nts COLOR (test code = 1501) YELLOW APPEARANCE (test code = 1502) CLEAR SPECIFIC GRAVITY (test code = 1503) 1.012 LEUKOCYTE ESTERASE (test cod e = 1504) NEGATIVE NITRITE (test code = 1505) NEGATIVE pH (test code = 1506) 5.5 PROTEIN (test code = 1507) 3+ GLUCOSE (test code = 1508) TRACE KETONES (test code = 1509) NEGATIVE UROBILINOGEN (test code = 1510) 0.2 MG/DL BILIRUBIN (test code = 1511) NEGATIVE OCCULT BLOOD (test code = 1512) TRACE WHITE BLOOD CELLS (test code = 1513) 0-5 /HPF RED BLOOD CELLS (test code = 1514) 3-5 /HPF EPITHELIAL CELLS (test code = 51562) 0-5 /HPF BACTERIA (test code = 1515) NONE SEEN CASTS, HYALINE (test code = 1517) TRACE Juan J DowCBC W/AUTO [id number] 00:00:00* Test Item Value Reference Range Interpretation Comme nts WBC (test code = 1001) 5.4 K/UL RBC (test code = 1002) 3.00 M/UL HEMOGLOBIN (test code = 1003) 9.3 G/DL HEMATOCRIT (test code = 1004) 29.2 % MCV (test code = 1005) 97.3 fL MCH (test code = 1006) 31.0 PG MCHC (test code = 1007) 31.8 G/DL RDW (test code = 1038) 13.2 % NEUTROPHILS (test code = 1008) 67.9 % LYMPHOCYTES (test code = 1010) 20.3 % MONOCYTES (test code = 1011) 8.3 % EOSINOPHILS (test code = 1012) 2.4 % BASOPHILS (test code = 1013) 0.9 % IMMATURE GRANULOCYTES (test code = 1036) 0.2 % NUCLEATED RBCS (test code = 1065) 0.0 /100WBC'S PLATELET COUNT (test code = 1015) 294 K/UL ABSOLUTE NEUTROPHILS (test c ode = 1066) 3.69 K/UL ABSOLUTE LYMPHOCYTES (test c ode = 1067) 1.10 K/UL ABSOLUTE MONOCYTES (test cod e = 1068) 0.45 K/UL ABSOLUTE EOSINOPHILS (test c ode = 1040) 0.13 K/UL ABSOLUTE BASOPHILS (test cod e = 1069) 0.05 K/UL ABS IMMATURE GRANULOCYTES (t est code = 1020) 0.01 K/UL ABS NUCLEATED RBCS (test cod e = 25147) 0.00 K/UL Juan J DowLIPID [id number] 00:00:00* Test Item Value Reference Range Interpretation Comme nts CHOLESTEROL (test code = 2210) 292 MG/DL TRIGLYCERIDES (test code = 2232) 135 MG/DL HDL CHOLESTEROL (test code = 2220) 63 MG/DL CALC LDL CHOL (test code = 2237) 200 MG/DL RISK RATIO LDL/HDL (test cod e = 2238) 3.17 RATIO Juan J DowCOMPREHENSIVE METABOLIC [id number] 00:00:00* Test Item Value Reference Range Interpretation Comme nts GLUCOSE (test code = 2217) 128 MG/DL BUN (test code = 2208) 85 MG/DL CREATININE (test code = 2214) 4.86 MG/DL eGFR (2020 CKD-EPI) (test co de = 30236) 12 ML/MIN/1.73 CALC BUN/CREAT (test code = 2235) 17 RATIO SODIUM (test code = 2231) 138 MEQ/L POTASSIUM (test code = 2228) 5.6 MEQ/L CHLORIDE (test code = 2215) 103 MEQ/L CARBON DIOXIDE (test code = 2206) 22 MEQ/L CALCIUM (test code = 2209) 9.9 MG/DL PROTEIN, TOTAL (test code = 2229) 7.2 G/DL ALBUMIN (test code = 2201) 4.2 G/DL CALC GLOBULIN (test code = 2240) 3.0 G/DL CALC A/G RATIO (test code = 2234) 1.4 RATIO BILIRUBIN, TOTAL (test code = 2207) <0.2 MG/DL ALKALINE PHOSPHATASE (test code = 2204) 93 U/L AST (test code = 2218) 28 U/L ALT (test code = 2219) 32 U/L Juan J Gallegos [place] W/REFLEX [id number] 00:00:00* Test Item Value Reference Range Interpretation Comme nts COLOR (test code = 1501) YELLOW APPEARANCE (test code = 1502) CLEAR SPECIFIC GRAVITY (test code = 1503) 1.012 LEUKOCYTE ESTERASE (test cod e = 1504) NEGATIVE NITRITE (test code = 1505) NEGATIVE pH (test code = 1506) 5.5 PROTEIN (test code = 1507) 3+ GLUCOSE (test code = 1508) TRACE KETONES (test code = 1509) NEGATIVE UROBILINOGEN (test code = 1510) 0.2 MG/DL BILIRUBIN (test code = 1511) NEGATIVE OCCULT BLOOD (test code = 1512) TRACE WHITE BLOOD CELLS (test code = 1513) 0-5 /HPF RED BLOOD CELLS (test code = 1514) 3-5 /HPF EPITHELIAL CELLS (test code = 30075) 0-5 /HPF BACTERIA (test code = 1515) NONE SEEN CASTS, HYALINE (test code = 1517) TRACE Juan J Gallegos AustinCBC W/AUTO [id number] 00:00:00* Test Item Value Reference Range Interpretation Comme nts WBC (test code = 1001) 5.4 K/UL RBC (test code = 1002) 3.00 M/UL HEMOGLOBIN (test code = 1003) 9.3 G/DL HEMATOCRIT (test code = 1004) 29.2 % MCV (test code = 1005) 97.3 fL MCH (test code = 1006) 31.0 PG MCHC (test code = 1007) 31.8 G/DL RDW (test code = 1038) 13.2 % NEUTROPHILS (test code = 1008) 67.9 % LYMPHOCYTES (test code = 1010) 20.3 % MONOCYTES (test code = 1011) 8.3 % EOSINOPHILS (test code = 1012) 2.4 % BASOPHILS (test code = 1013) 0.9 % IMMATURE GRANULOCYTES (test code = 1036) 0.2 % NUCLEATED RBCS (test code = 1065) 0.0 /100WBC'S PLATELET COUNT (test code = 1015) 294 K/UL ABSOLUTE NEUTROPHILS (test c ode = 1066) 3.69 K/UL ABSOLUTE LYMPHOCYTES (test c ode = 1067) 1.10 K/UL ABSOLUTE MONOCYTES (test cod e = 1068) 0.45 K/UL ABSOLUTE EOSINOPHILS (test c ode = 1040) 0.13 K/UL ABSOLUTE BASOPHILS (test cod e = 1069) 0.05 K/UL ABS IMMATURE GRANULOCYTES (t est code = 1020) 0.01 K/UL ABS NUCLEATED RBCS (test cod e = 96772) 0.00 K/UL Juan J DowLIPID [id number] 00:00:00* Test Item Value Reference Range Interpretation Comme nts CHOLESTEROL (test code = 2210) 292 MG/DL TRIGLYCERIDES (test code = 2232) 135 MG/DL HDL CHOLESTEROL (test code = 2220) 63 MG/DL CALC LDL CHOL (test code = 2237) 200 MG/DL RISK RATIO LDL/HDL (test cod e = 2238) 3.17 RATIO Juan J Gallegos Victor MCOMPREHENSIVE METABOLIC [id number] 00:00:00* Test Item Value Reference Range Interpretation Comme nts GLUCOSE (test code = 2217) 128 MG/DL BUN (test code = 2208) 85 MG/DL CREATININE (test code = 2214) 4.86 MG/DL eGFR (2020 CKD-EPI) (test co de = 12967) 12 ML/MIN/1.73 CALC BUN/CREAT (test code = 2235) 17 RATIO SODIUM (test code = 2231) 138 MEQ/L POTASSIUM (test code = 2228) 5.6 MEQ/L CHLORIDE (test code = 2215) 103 MEQ/L CARBON DIOXIDE (test code = 2206) 22 MEQ/L CALCIUM (test code = 2209) 9.9 MG/DL PROTEIN, TOTAL (test code = 2229) 7.2 G/DL ALBUMIN (test code = 2201) 4.2 G/DL CALC GLOBULIN (test code = 2240) 3.0 G/DL CALC A/G RATIO (test code = 2234) 1.4 RATIO BILIRUBIN, TOTAL (test code = 2207) <0.2 MG/DL ALKALINE PHOSPHATASE (test code = 2204) 93 U/L AST (test code = 2218) 28 U/L ALT (test code = 2219) 32 U/L Juan J El Victor MPSA, [id number] 00:00:00* Test Item Value Reference Range Interpretation Comme nts PSA, TOTAL (test code = 2606) 7.76 NG/ML Juan J Gallegos Victor MURIC [id number] 00:00:00* Test Item Value Reference Range Interpretation Comme nts URIC ACID (test code = 2233) 7.9 MG/DL Juan J El Victor MMICROSCOPIC URINALYSIS, REFLEX [id number] 00:00:00* Test Item Value Reference Range Interpretation Comme nts WHITE BLOOD CELLS (test code = 1513) 0-5 /HPF RED BLOOD CELLS (test code = 1514) 6-10 /HPF EPITHELIAL CELLS (test code = 55834) 0-5 /HPF BACTERIA (test code = 1515) NONE SEEN CASTS, HYALINE (test code = 1517) TRACE Juan J El Victor MCBC W/AUTO [id number] 00:00:00* Test Item Value Reference Range Interpretation Comme nts WBC (test code = 1001) 5.9 K/UL RBC (test code = 1002) 2.51 M/UL HEMOGLOBIN (test code = 1003) 7.8 G/DL HEMATOCRIT (test code = 1004) 24.9 % MCV (test code = 1005) 99.2 fL MCH (test code = 1006) 31.1 PG MCHC (test code = 1007) 31.3 G/DL RDW (test code = 1038) 14.6 % NEUTROPHILS (test code = 1008) 55.1 % LYMPHOCYTES (test code = 1010) 29.4 % MONOCYTES (test code = 1011) 8.7 % EOSINOPHILS (test code = 1012) 5.8 % BASOPHILS (test code = 1013) 0.7 % IMMATURE GRANULOCYTES (test code = 1036) 0.3 % NUCLEATED RBCS (test code = 1065) 0.0 /100WBC'S PLATELET COUNT (test code = 1015) 386 K/UL ABSOLUTE NEUTROPHILS (test c ode = 1066) 3.22 K/UL ABSOLUTE LYMPHOCYTES (test c ode = 1067) 1.72 K/UL ABSOLUTE MONOCYTES (test cod e = 1068) 0.51 K/UL ABSOLUTE EOSINOPHILS (test c ode = 1040) 0.34 K/UL ABSOLUTE BASOPHILS (test cod e = 1069) 0.04 K/UL ABS IMMATURE GRANULOCYTES (t est code = 1020) 0.02 K/UL ABS NUCLEATED RBCS (test cod e = 95859) 0.00 K/UL COMMENTS (test code = 1016) (NOTE) Juan J Gallegos AustinLIPID [id number] 00:00:00* Test Item Value Reference Range Interpretation Comme nts CHOLESTEROL (test code = 2210) 243 MG/DL TRIGLYCERIDES (test code = 2232) 150 MG/DL HDL CHOLESTEROL (test code = 2220) 55 MG/DL CALC LDL CHOL (test code = 2237) 160 MG/DL RISK RATIO LDL/HDL (test cod e = 2238) 2.91 RATIO Juan J DowCOMPREHENSIVE METABOLIC [id number] 00:00:00* Test Item Value Reference Range Interpretation Comme nts GLUCOSE (test code = 2217) 94 MG/DL BUN (test code = 2208) 54 MG/DL CREATININE (test code = 2214) 3.54 MG/DL eGFR (2020 CKD-EPI) (test co de = 85424) 17 ML/MIN/1.73 CALC BUN/CREAT (test code = 2235) 15 RATIO SODIUM (test code = 2231) 140 MEQ/L POTASSIUM (test code = 2228) 6.2 MEQ/L CHLORIDE (test code = 2215) 111 MEQ/L CARBON DIOXIDE (test code = 2206) 14 MEQ/L CALCIUM (test code = 2209) 9.3 MG/DL PROTEIN, TOTAL (test code = 2229) 6.3 G/DL ALBUMIN (test code = 2201) 3.8 G/DL CALC GLOBULIN (test code = 2240) 2.5 G/DL CALC A/G RATIO (test code = 2234) 1.5 RATIO BILIRUBIN, TOTAL (test code = 2207) <0.2 MG/DL ALKALINE PHOSPHATASE (test code = 2204) 76 U/L AST (test code = 2218) 33 U/L ALT (test code = 2219) 17 U/L Juan J DwoPSA, [id number] 00:00:00* Test Item Value Reference Range Interpretation Comme nts PSA, TOTAL (test code = 2606) 7.76 NG/ML Juan J DowURIC [id number] 00:00:00* Test Item Value Reference Range Interpretation Comme nts URIC ACID (test code = 2233) 7.9 MG/DL Juan J DowMICROSCOPIC URINALYSIS, REFLEX [id number] 00:00:00* Test Item Value Reference Range Interpretation Comme nts WHITE BLOOD CELLS (test code = 1513) 0-5 /HPF RED BLOOD CELLS (test code = 1514) 6-10 /HPF EPITHELIAL CELLS (test code = 52083) 0-5 /HPF BACTERIA (test code = 1515) NONE SEEN CASTS, HYALINE (test code = 1517) TRACE Juan J DowCBC W/AUTO [id number] 00:00:00* Test Item Value Reference Range Interpretation Comme nts WBC (test code = 1001) 5.9 K/UL RBC (test code = 1002) 2.51 M/UL HEMOGLOBIN (test code = 1003) 7.8 G/DL HEMATOCRIT (test code = 1004) 24.9 % MCV (test code = 1005) 99.2 fL MCH (test code = 1006) 31.1 PG MCHC (test code = 1007) 31.3 G/DL RDW (test code = 1038) 14.6 % NEUTROPHILS (test code = 1008) 55.1 % LYMPHOCYTES (test code = 1010) 29.4 % MONOCYTES (test code = 1011) 8.7 % EOSINOPHILS (test code = 1012) 5.8 % BASOPHILS (test code = 1013) 0.7 % IMMATURE GRANULOCYTES (test code = 1036) 0.3 % NUCLEATED RBCS (test code = 1065) 0.0 /100WBC'S PLATELET COUNT (test code = 1015) 386 K/UL ABSOLUTE NEUTROPHILS (test c ode = 1066) 3.22 K/UL ABSOLUTE LYMPHOCYTES (test c ode = 1067) 1.72 K/UL ABSOLUTE MONOCYTES (test cod e = 1068) 0.51 K/UL ABSOLUTE EOSINOPHILS (test c ode = 1040) 0.34 K/UL ABSOLUTE BASOPHILS (test cod e = 1069) 0.04 K/UL ABS IMMATURE GRANULOCYTES (t est code = 1020) 0.02 K/UL ABS NUCLEATED RBCS (test cod e = 54520) 0.00 K/UL COMMENTS (test code = 1016) (NOTE) Juan J Gallegos AustinLIPID [id number] 00:00:00* Test Item Value Reference Range Interpretation Comme nts CHOLESTEROL (test code = 2210) 243 MG/DL TRIGLYCERIDES (test code = 2232) 150 MG/DL HDL CHOLESTEROL (test code = 2220) 55 MG/DL CALC LDL CHOL (test code = 2237) 160 MG/DL RISK RATIO LDL/HDL (test cod e = 2238) 2.91 RATIO Juan J DwoCOMPREHENSIVE METABOLIC [id number] 00:00:00* Test Item Value Reference Range Interpretation Comme nts GLUCOSE (test code = 2217) 94 MG/DL BUN (test code = 2208) 54 MG/DL CREATININE (test code = 2214) 3.54 MG/DL eGFR (2020 CKD-EPI) (test co de = 04209) 17 ML/MIN/1.73 CALC BUN/CREAT (test code = 2235) 15 RATIO SODIUM (test code = 2231) 140 MEQ/L POTASSIUM (test code = 2228) 6.2 MEQ/L CHLORIDE (test code = 2215) 111 MEQ/L CARBON DIOXIDE (test code = 2206) 14 MEQ/L CALCIUM (test code = 2209) 9.3 MG/DL PROTEIN, TOTAL (test code = 2229) 6.3 G/DL ALBUMIN (test code = 2201) 3.8 G/DL CALC GLOBULIN (test code = 2240) 2.5 G/DL CALC A/G RATIO (test code = 2234) 1.5 RATIO BILIRUBIN, TOTAL (test code = 2207) <0.2 MG/DL ALKALINE PHOSPHATASE (test code = 2204) 76 U/L AST (test code = 2218) 33 U/L ALT (test code = 2219) 17 U/L Juan J DowPSA, [id number] 00:00:00* Test Item Value Reference Range Interpretation Comme nts PSA, TOTAL (test code = 2606) 7.76 NG/ML Juan J Gallegos AustinURIC [id number] 00:00:00* Test Item Value Reference Range Interpretation Comme nts URIC ACID (test code = 2233) 7.9 MG/DL Juan J DowMICROSCOPIC URINALYSIS, REFLEX [id number] 00:00:00* Test Item Value Reference Range Interpretation Comme nts WHITE BLOOD CELLS (test code = 1513) 0-5 /HPF RED BLOOD CELLS (test code = 1514) 6-10 /HPF EPITHELIAL CELLS (test code = 35334) 0-5 /HPF BACTERIA (test code = 1515) NONE SEEN CASTS, HYALINE (test code = 1517) TRACE Juan J DowCBC W/AUTO [id number] 00:00:00* Test Item Value Reference Range Interpretation Comme nts WBC (test code = 1001) 5.9 K/UL RBC (test code = 1002) 2.51 M/UL HEMOGLOBIN (test code = 1003) 7.8 G/DL HEMATOCRIT (test code = 1004) 24.9 % MCV (test code = 1005) 99.2 fL MCH (test code = 1006) 31.1 PG MCHC (test code = 1007) 31.3 G/DL RDW (test code = 1038) 14.6 % NEUTROPHILS (test code = 1008) 55.1 % LYMPHOCYTES (test code = 1010) 29.4 % MONOCYTES (test code = 1011) 8.7 % EOSINOPHILS (test code = 1012) 5.8 % BASOPHILS (test code = 1013) 0.7 % IMMATURE GRANULOCYTES (test code = 1036) 0.3 % NUCLEATED RBCS (test code = 1065) 0.0 /100WBC'S PLATELET COUNT (test code = 1015) 386 K/UL ABSOLUTE NEUTROPHILS (test c ode = 1066) 3.22 K/UL ABSOLUTE LYMPHOCYTES (test c ode = 1067) 1.72 K/UL ABSOLUTE MONOCYTES (test cod e = 1068) 0.51 K/UL ABSOLUTE EOSINOPHILS (test c ode = 1040) 0.34 K/UL ABSOLUTE BASOPHILS (test cod e = 1069) 0.04 K/UL ABS IMMATURE GRANULOCYTES (t est code = 1020) 0.02 K/UL ABS NUCLEATED RBCS (test cod e = 52199) 0.00 K/UL COMMENTS (test code = 1016) (NOTE) Juan J DowLIPID [id number] 00:00:00* Test Item Value Reference Range Interpretation Comme nts CHOLESTEROL (test code = 2210) 243 MG/DL TRIGLYCERIDES (test code = 2232) 150 MG/DL HDL CHOLESTEROL (test code = 2220) 55 MG/DL CALC LDL CHOL (test code = 2237) 160 MG/DL RISK RATIO LDL/HDL (test cod e = 2238) 2.91 RATIO Juan J DowCOMPREHENSIVE METABOLIC [id number] 00:00:00* Test Item Value Reference Range Interpretation Comme nts GLUCOSE (test code = 2217) 94 MG/DL BUN (test code = 2208) 54 MG/DL CREATININE (test code = 2214) 3.54 MG/DL eGFR (2020 CKD-EPI) (test co de = 96119) 17 ML/MIN/1.73 CALC BUN/CREAT (test code = 2235) 15 RATIO SODIUM (test code = 2231) 140 MEQ/L POTASSIUM (test code = 2228) 6.2 MEQ/L CHLORIDE (test code = 2215) 111 MEQ/L CARBON DIOXIDE (test code = 2206) 14 MEQ/L CALCIUM (test code = 2209) 9.3 MG/DL PROTEIN, TOTAL (test code = 2229) 6.3 G/DL ALBUMIN (test code = 2201) 3.8 G/DL CALC GLOBULIN (test code = 2240) 2.5 G/DL CALC A/G RATIO (test code = 2234) 1.5 RATIO BILIRUBIN, TOTAL (test code = 2207) <0.2 MG/DL ALKALINE PHOSPHATASE (test code = 2204) 76 U/L AST (test code = 2218) 33 U/L ALT (test code = 2219) 17 U/L Juan J DowPSA, [id number] 00:00:00* Test Item Value Reference Range Interpretation Comme nts PSA, TOTAL (test code = 2606) 7.76 NG/ML Juan J DowURIC [id number] 00:00:00* Test Item Value Reference Range Interpretation Comme nts URIC ACID (test code = 2233) 7.9 MG/DL Juan J DowMICROSCOPIC URINALYSIS, REFLEX [id number] 00:00:00* Test Item Value Reference Range Interpretation Comme nts WHITE BLOOD CELLS (test code = 1513) 0-5 /HPF RED BLOOD CELLS (test code = 1514) 6-10 /HPF EPITHELIAL CELLS (test code = 59531) 0-5 /HPF BACTERIA (test code = 1515) NONE SEEN CASTS, HYALINE (test code = 1517) TRACE Juan J DowCBC W/AUTO [id number] 00:00:00* Test Item Value Reference Range Interpretation Comme nts WBC (test code = 1001) 5.9 K/UL RBC (test code = 1002) 2.51 M/UL HEMOGLOBIN (test code = 1003) 7.8 G/DL HEMATOCRIT (test code = 1004) 24.9 % MCV (test code = 1005) 99.2 fL MCH (test code = 1006) 31.1 PG MCHC (test code = 1007) 31.3 G/DL RDW (test code = 1038) 14.6 % NEUTROPHILS (test code = 1008) 55.1 % LYMPHOCYTES (test code = 1010) 29.4 % MONOCYTES (test code = 1011) 8.7 % EOSINOPHILS (test code = 1012) 5.8 % BASOPHILS (test code = 1013) 0.7 % IMMATURE GRANULOCYTES (test code = 1036) 0.3 % NUCLEATED RBCS (test code = 1065) 0.0 /100WBC'S PLATELET COUNT (test code = 1015) 386 K/UL ABSOLUTE NEUTROPHILS (test c ode = 1066) 3.22 K/UL ABSOLUTE LYMPHOCYTES (test c ode = 1067) 1.72 K/UL ABSOLUTE MONOCYTES (test cod e = 1068) 0.51 K/UL ABSOLUTE EOSINOPHILS (test c ode = 1040) 0.34 K/UL ABSOLUTE BASOPHILS (test cod e = 1069) 0.04 K/UL ABS IMMATURE GRANULOCYTES (t est code = 1020) 0.02 K/UL ABS NUCLEATED RBCS (test cod e = 37033) 0.00 K/UL COMMENTS (test code = 1016) (NOTE) Juan J DowLIPID [id number] 00:00:00* Test Item Value Reference Range Interpretation Comme nts CHOLESTEROL (test code = 2210) 243 MG/DL TRIGLYCERIDES (test code = 2232) 150 MG/DL HDL CHOLESTEROL (test code = 2220) 55 MG/DL CALC LDL CHOL (test code = 2237) 160 MG/DL RISK RATIO LDL/HDL (test cod e = 2238) 2.91 RATIO Juan J DowCOMPREHENSIVE METABOLIC [id number] 00:00:00* Test Item Value Reference Range Interpretation Comme nts GLUCOSE (test code = 2217) 94 MG/DL BUN (test code = 2208) 54 MG/DL CREATININE (test code = 2214) 3.54 MG/DL eGFR (2020 CKD-EPI) (test co de = 22402) 17 ML/MIN/1.73 CALC BUN/CREAT (test code = 2235) 15 RATIO SODIUM (test code = 2231) 140 MEQ/L POTASSIUM (test code = 2228) 6.2 MEQ/L CHLORIDE (test code = 2215) 111 MEQ/L CARBON DIOXIDE (test code = 2206) 14 MEQ/L CALCIUM (test code = 2209) 9.3 MG/DL PROTEIN, TOTAL (test code = 2229) 6.3 G/DL ALBUMIN (test code = 2201) 3.8 G/DL CALC GLOBULIN (test code = 2240) 2.5 G/DL CALC A/G RATIO (test code = 2234) 1.5 RATIO BILIRUBIN, TOTAL (test code = 2207) <0.2 MG/DL ALKALINE PHOSPHATASE (test code = 2204) 76 U/L AST (test code = 2218) 33 U/L ALT (test code = 2219) 17 U/L Juan J DowPSA, [id number] 00:00:00* Test Item Value Reference Range Interpretation Comme nts PSA, TOTAL (test code = 2606) 7.76 NG/ML Juan J DowURIC [id number] 00:00:00* Test Item Value Reference Range Interpretation Comme nts URIC ACID (test code = 2233) 7.9 MG/DL Juan J DowMICROSCOPIC URINALYSIS, REFLEX [id number] 00:00:00* Test Item Value Reference Range Interpretation Comme nts WHITE BLOOD CELLS (test code = 1513) 0-5 /HPF RED BLOOD CELLS (test code = 1514) 6-10 /HPF EPITHELIAL CELLS (test code = 13544) 0-5 /HPF BACTERIA (test code = 1515) NONE SEEN CASTS, HYALINE (test code = 1517) TRACE Juan J DowCBC W/AUTO [id number] 00:00:00* Test Item Value Reference Range Interpretation Comme nts WBC (test code = 1001) 5.9 K/UL RBC (test code = 1002) 2.51 M/UL HEMOGLOBIN (test code = 1003) 7.8 G/DL HEMATOCRIT (test code = 1004) 24.9 % MCV (test code = 1005) 99.2 fL MCH (test code = 1006) 31.1 PG MCHC (test code = 1007) 31.3 G/DL RDW (test code = 1038) 14.6 % NEUTROPHILS (test code = 1008) 55.1 % LYMPHOCYTES (test code = 1010) 29.4 % MONOCYTES (test code = 1011) 8.7 % EOSINOPHILS (test code = 1012) 5.8 % BASOPHILS (test code = 1013) 0.7 % IMMATURE GRANULOCYTES (test code = 1036) 0.3 % NUCLEATED RBCS (test code = 1065) 0.0 /100WBC'S PLATELET COUNT (test code = 1015) 386 K/UL ABSOLUTE NEUTROPHILS (test c ode = 1066) 3.22 K/UL ABSOLUTE LYMPHOCYTES (test c ode = 1067) 1.72 K/UL ABSOLUTE MONOCYTES (test cod e = 1068) 0.51 K/UL ABSOLUTE EOSINOPHILS (test c ode = 1040) 0.34 K/UL ABSOLUTE BASOPHILS (test cod e = 1069) 0.04 K/UL ABS IMMATURE GRANULOCYTES (t est code = 1020) 0.02 K/UL ABS NUCLEATED RBCS (test cod e = 12183) 0.00 K/UL COMMENTS (test code = 1016) (NOTE) Juan J DowLIPID [id number] 00:00:00* Test Item Value Reference Range Interpretation Comme nts CHOLESTEROL (test code = 2210) 243 MG/DL TRIGLYCERIDES (test code = 2232) 150 MG/DL HDL CHOLESTEROL (test code = 2220) 55 MG/DL CALC LDL CHOL (test code = 2237) 160 MG/DL RISK RATIO LDL/HDL (test cod e = 2238) 2.91 RATIO Juan J DowCOMPREHENSIVE METABOLIC [id number] 00:00:00* Test Item Value Reference Range Interpretation Comme nts GLUCOSE (test code = 2217) 94 MG/DL BUN (test code = 2208) 54 MG/DL CREATININE (test code = 2214) 3.54 MG/DL eGFR (2020 CKD-EPI) (test co de = 21155) 17 ML/MIN/1.73 CALC BUN/CREAT (test code = 2235) 15 RATIO SODIUM (test code = 2231) 140 MEQ/L POTASSIUM (test code = 2228) 6.2 MEQ/L CHLORIDE (test code = 2215) 111 MEQ/L CARBON DIOXIDE (test code = 2206) 14 MEQ/L CALCIUM (test code = 2209) 9.3 MG/DL PROTEIN, TOTAL (test code = 2229) 6.3 G/DL ALBUMIN (test code = 2201) 3.8 G/DL CALC GLOBULIN (test code = 2240) 2.5 G/DL CALC A/G RATIO (test code = 2234) 1.5 RATIO BILIRUBIN, TOTAL (test code = 2207) <0.2 MG/DL ALKALINE PHOSPHATASE (test code = 2204) 76 U/L AST (test code = 2218) 33 U/L ALT (test code = 2219) 17 U/L Juan J DowPSA, [id number] 00:00:00* Test Item Value Reference Range Interpretation Comme nts PSA, TOTAL (test code = 2606) 7.76 NG/ML Juan J DowURIC [id number] 00:00:00* Test Item Value Reference Range Interpretation Comme nts URIC ACID (test code = 2233) 7.9 MG/DL Juan J DowMICROSCOPIC URINALYSIS, REFLEX [id number] 00:00:00* Test Item Value Reference Range Interpretation Comme nts WHITE BLOOD CELLS (test code = 1513) 0-5 /HPF RED BLOOD CELLS (test code = 1514) 6-10 /HPF EPITHELIAL CELLS (test code = 51873) 0-5 /HPF BACTERIA (test code = 1515) NONE SEEN CASTS, HYALINE (test code = 1517) TRACE Juan J DowCBC W/AUTO [id number] 00:00:00* Test Item Value Reference Range Interpretation Comme nts WBC (test code = 1001) 5.9 K/UL RBC (test code = 1002) 2.51 M/UL HEMOGLOBIN (test code = 1003) 7.8 G/DL HEMATOCRIT (test code = 1004) 24.9 % MCV (test code = 1005) 99.2 fL MCH (test code = 1006) 31.1 PG MCHC (test code = 1007) 31.3 G/DL RDW (test code = 1038) 14.6 % NEUTROPHILS (test code = 1008) 55.1 % LYMPHOCYTES (test code = 1010) 29.4 % MONOCYTES (test code = 1011) 8.7 % EOSINOPHILS (test code = 1012) 5.8 % BASOPHILS (test code = 1013) 0.7 % IMMATURE GRANULOCYTES (test code = 1036) 0.3 % NUCLEATED RBCS (test code = 1065) 0.0 /100WBC'S PLATELET COUNT (test code = 1015) 386 K/UL ABSOLUTE NEUTROPHILS (test c ode = 1066) 3.22 K/UL ABSOLUTE LYMPHOCYTES (test c ode = 1067) 1.72 K/UL ABSOLUTE MONOCYTES (test cod e = 1068) 0.51 K/UL ABSOLUTE EOSINOPHILS (test c ode = 1040) 0.34 K/UL ABSOLUTE BASOPHILS (test cod e = 1069) 0.04 K/UL ABS IMMATURE GRANULOCYTES (t est code = 1020) 0.02 K/UL ABS NUCLEATED RBCS (test cod e = 28443) 0.00 K/UL COMMENTS (test code = 1016) (NOTE) Juan J DowLIPID [id number] 00:00:00* Test Item Value Reference Range Interpretation Comme nts CHOLESTEROL (test code = 2210) 243 MG/DL TRIGLYCERIDES (test code = 2232) 150 MG/DL HDL CHOLESTEROL (test code = 2220) 55 MG/DL CALC LDL CHOL (test code = 2237) 160 MG/DL RISK RATIO LDL/HDL (test cod e = 2238) 2.91 RATIO Juan J DowCOMPREHENSIVE METABOLIC [id number] 00:00:00* Test Item Value Reference Range Interpretation Comme nts GLUCOSE (test code = 2217) 94 MG/DL BUN (test code = 2208) 54 MG/DL CREATININE (test code = 2214) 3.54 MG/DL eGFR (2020 CKD-EPI) (test co de = 96340) 17 ML/MIN/1.73 CALC BUN/CREAT (test code = 2235) 15 RATIO SODIUM (test code = 2231) 140 MEQ/L POTASSIUM (test code = 2228) 6.2 MEQ/L CHLORIDE (test code = 2215) 111 MEQ/L CARBON DIOXIDE (test code = 2206) 14 MEQ/L CALCIUM (test code = 2209) 9.3 MG/DL PROTEIN, TOTAL (test code = 2229) 6.3 G/DL ALBUMIN (test code = 2201) 3.8 G/DL CALC GLOBULIN (test code = 2240) 2.5 G/DL CALC A/G RATIO (test code = 2234) 1.5 RATIO BILIRUBIN, TOTAL (test code = 2207) <0.2 MG/DL ALKALINE PHOSPHATASE (test code = 2204) 76 U/L AST (test code = 2218) 33 U/L ALT (test code = 2219) 17 U/L Juan J Gallegos Victor MPSA, [id number] 00:00:00* Test Item Value Reference Range Interpretation Comme nts PSA, TOTAL (test code = 2606) 7.76 NG/ML Juan J Gallegos Victor MURIC [id number] 00:00:00* Test Item Value Reference Range Interpretation Comme nts URIC ACID (test code = 2233) 7.9 MG/DL Juan J Gallegos Victor MMICROSCOPIC URINALYSIS, REFLEX [id number] 00:00:00* Test Item Value Reference Range Interpretation Comme nts WHITE BLOOD CELLS (test code = 1513) 0-5 /HPF RED BLOOD CELLS (test code = 1514) 6-10 /HPF EPITHELIAL CELLS (test code = 36903) 0-5 /HPF BACTERIA (test code = 1515) NONE SEEN CASTS, HYALINE (test code = 1517) TRACE Juan J DowCBC W/AUTO [id number] 00:00:00* Test Item Value Reference Range Interpretation Comme nts WBC (test code = 1001) 5.9 K/UL RBC (test code = 1002) 2.51 M/UL HEMOGLOBIN (test code = 1003) 7.8 G/DL HEMATOCRIT (test code = 1004) 24.9 % MCV (test code = 1005) 99.2 fL MCH (test code = 1006) 31.1 PG MCHC (test code = 1007) 31.3 G/DL RDW (test code = 1038) 14.6 % NEUTROPHILS (test code = 1008) 55.1 % LYMPHOCYTES (test code = 1010) 29.4 % MONOCYTES (test code = 1011) 8.7 % EOSINOPHILS (test code = 1012) 5.8 % BASOPHILS (test code = 1013) 0.7 % IMMATURE GRANULOCYTES (test code = 1036) 0.3 % NUCLEATED RBCS (test code = 1065) 0.0 /100WBC'S PLATELET COUNT (test code = 1015) 386 K/UL ABSOLUTE NEUTROPHILS (test c ode = 1066) 3.22 K/UL ABSOLUTE LYMPHOCYTES (test c ode = 1067) 1.72 K/UL ABSOLUTE MONOCYTES (test cod e = 1068) 0.51 K/UL ABSOLUTE EOSINOPHILS (test c ode = 1040) 0.34 K/UL ABSOLUTE BASOPHILS (test cod e = 1069) 0.04 K/UL ABS IMMATURE GRANULOCYTES (t est code = 1020) 0.02 K/UL ABS NUCLEATED RBCS (test cod e = 96439) 0.00 K/UL COMMENTS (test code = 1016) (NOTE) Juan J DowLIPID [id number] 00:00:00* Test Item Value Reference Range Interpretation Comme nts CHOLESTEROL (test code = 2210) 243 MG/DL TRIGLYCERIDES (test code = 2232) 150 MG/DL HDL CHOLESTEROL (test code = 2220) 55 MG/DL CALC LDL CHOL (test code = 2237) 160 MG/DL RISK RATIO LDL/HDL (test cod e = 2238) 2.91 RATIO Juan J DowCOMPREHENSIVE METABOLIC [id number] 00:00:00* Test Item Value Reference Range Interpretation Comme nts GLUCOSE (test code = 2217) 94 MG/DL BUN (test code = 2208) 54 MG/DL CREATININE (test code = 2214) 3.54 MG/DL eGFR (2020 CKD-EPI) (test co de = 36285) 17 ML/MIN/1.73 CALC BUN/CREAT (test code = 2235) 15 RATIO SODIUM (test code = 2231) 140 MEQ/L POTASSIUM (test code = 2228) 6.2 MEQ/L CHLORIDE (test code = 2215) 111 MEQ/L CARBON DIOXIDE (test code = 2206) 14 MEQ/L CALCIUM (test code = 2209) 9.3 MG/DL PROTEIN, TOTAL (test code = 222) 6.3 G/DL ALBUMIN (test code = 2201) 3.8 G/DL CALC GLOBULIN (test code = 2240) 2.5 G/DL CALC A/G RATIO (test code = 2234) 1.5 RATIO BILIRUBIN, TOTAL (test code = 220) <0.2 MG/DL ALKALINE PHOSPHATASE (test code = 2204) 76 U/L AST (test code = 2218) 33 U/L ALT (test code = 2219) 17 U/L Juan J DowPSA, [id number] 00:00:00* Test Item Value Reference Range Interpretation Comme nts PSA, TOTAL (test code = 2606) 7.76 NG/ML Juan J DowURIC [id number] 00:00:00* Test Item Value Reference Range Interpretation Comme nts URIC ACID (test code = 2233) 7.9 MG/DL Juan J Gallegos Victor MMICROSCOPIC URINALYSIS, REFLEX [id number] 00:00:00* Test Item Value Reference Range Interpretation Comme nts WHITE BLOOD CELLS (test code = 1513) 0-5 /HPF RED BLOOD CELLS (test code = 1514) 6-10 /HPF EPITHELIAL CELLS (test code = 94817) 0-5 /HPF BACTERIA (test code = 1515) NONE SEEN CASTS, HYALINE (test code = 1517) TRACE Juan J Gallegos Victor MCBC W/AUTO [id number] 00:00:00* Test Item Value Reference Range Interpretation Comme nts WBC (test code = 1001) 5.9 K/UL RBC (test code = 1002) 2.51 M/UL HEMOGLOBIN (test code = 1003) 7.8 G/DL HEMATOCRIT (test code = 1004) 24.9 % MCV (test code = 1005) 99.2 fL MCH (test code = 1006) 31.1 PG MCHC (test code = 1007) 31.3 G/DL RDW (test code = 1038) 14.6 % NEUTROPHILS (test code = 1008) 55.1 % LYMPHOCYTES (test code = 1010) 29.4 % MONOCYTES (test code = 1011) 8.7 % EOSINOPHILS (test code = 1012) 5.8 % BASOPHILS (test code = 1013) 0.7 % IMMATURE GRANULOCYTES (test code = 1036) 0.3 % NUCLEATED RBCS (test code = 1065) 0.0 /100WBC'S PLATELET COUNT (test code = 1015) 386 K/UL ABSOLUTE NEUTROPHILS (test c ode = 1066) 3.22 K/UL ABSOLUTE LYMPHOCYTES (test c ode = 1067) 1.72 K/UL ABSOLUTE MONOCYTES (test cod e = 1068) 0.51 K/UL ABSOLUTE EOSINOPHILS (test c ode = 1040) 0.34 K/UL ABSOLUTE BASOPHILS (test cod e = 1069) 0.04 K/UL ABS IMMATURE GRANULOCYTES (t est code = 1020) 0.02 K/UL ABS NUCLEATED RBCS (test cod e = 54143) 0.00 K/UL COMMENTS (test code = 1016) (NOTE) Juan J Gallegos AustinLIPID [id number] 00:00:00* Test Item Value Reference Range Interpretation Comme nts CHOLESTEROL (test code = 2210) 243 MG/DL TRIGLYCERIDES (test code = 2232) 150 MG/DL HDL CHOLESTEROL (test code = 2220) 55 MG/DL CALC LDL CHOL (test code = 2237) 160 MG/DL RISK RATIO LDL/HDL (test cod e = 2238) 2.91 RATIO Juan J DowCOMPREHENSIVE METABOLIC [id number] 00:00:00* Test Item Value Reference Range Interpretation Comme nts GLUCOSE (test code = 2217) 94 MG/DL BUN (test code = 2208) 54 MG/DL CREATININE (test code = 2214) 3.54 MG/DL eGFR (2020 CKD-EPI) (test co de = 64141) 17 ML/MIN/1.73 CALC BUN/CREAT (test code = 2235) 15 RATIO SODIUM (test code = 2231) 140 MEQ/L POTASSIUM (test code = 2228) 6.2 MEQ/L CHLORIDE (test code = 2215) 111 MEQ/L CARBON DIOXIDE (test code = 2206) 14 MEQ/L CALCIUM (test code = 2209) 9.3 MG/DL PROTEIN, TOTAL (test code = 2229) 6.3 G/DL ALBUMIN (test code = 2201) 3.8 G/DL CALC GLOBULIN (test code = 2240) 2.5 G/DL CALC A/G RATIO (test code = 2234) 1.5 RATIO BILIRUBIN, TOTAL (test code = 2207) <0.2 MG/DL ALKALINE PHOSPHATASE (test code = 220) 76 U/L AST (test code = 2218) 33 U/L ALT (test code = 2219) 17 U/L Juan J DowPSA, [id number] 00:00:00* Test Item Value Reference Range Interpretation Comme nts PSA, TOTAL (test code = 2606) 7.76 NG/ML Juan J DowURIC [id number] 00:00:00* Test Item Value Reference Range Interpretation Comme nts URIC ACID (test code = 2233) 7.9 MG/DL Juan J DowMICROSCOPIC URINALYSIS, REFLEX [id number] 00:00:00* Test Item Value Reference Range Interpretation Comme nts WHITE BLOOD CELLS (test code = 1513) 0-5 /HPF RED BLOOD CELLS (test code = 1514) 6-10 /HPF EPITHELIAL CELLS (test code = 82494) 0-5 /HPF BACTERIA (test code = 1515) NONE SEEN CASTS, HYALINE (test code = 1517) TRACE Juan J DowCBC W/AUTO [id number] 00:00:00* Test Item Value Reference Range Interpretation Comme nts WBC (test code = 1001) 5.9 K/UL RBC (test code = 1002) 2.51 M/UL HEMOGLOBIN (test code = 1003) 7.8 G/DL HEMATOCRIT (test code = 1004) 24.9 % MCV (test code = 1005) 99.2 fL MCH (test code = 1006) 31.1 PG MCHC (test code = 1007) 31.3 G/DL RDW (test code = 1038) 14.6 % NEUTROPHILS (test code = 1008) 55.1 % LYMPHOCYTES (test code = 1010) 29.4 % MONOCYTES (test code = 1011) 8.7 % EOSINOPHILS (test code = 1012) 5.8 % BASOPHILS (test code = 1013) 0.7 % IMMATURE GRANULOCYTES (test code = 1036) 0.3 % NUCLEATED RBCS (test code = 1065) 0.0 /100WBC'S PLATELET COUNT (test code = 1015) 386 K/UL ABSOLUTE NEUTROPHILS (test c ode = 1066) 3.22 K/UL ABSOLUTE LYMPHOCYTES (test c ode = 1067) 1.72 K/UL ABSOLUTE MONOCYTES (test cod e = 1068) 0.51 K/UL ABSOLUTE EOSINOPHILS (test c ode = 1040) 0.34 K/UL ABSOLUTE BASOPHILS (test cod e = 1069) 0.04 K/UL ABS IMMATURE GRANULOCYTES (t est code = 1020) 0.02 K/UL ABS NUCLEATED RBCS (test cod e = 19689) 0.00 K/UL COMMENTS (test code = 1016) (NOTE) Juan J Gallegos AustinLIPID [id number] 00:00:00* Test Item Value Reference Range Interpretation Comme nts CHOLESTEROL (test code = 2210) 243 MG/DL TRIGLYCERIDES (test code = 2232) 150 MG/DL HDL CHOLESTEROL (test code = 2220) 55 MG/DL CALC LDL CHOL (test code = 2237) 160 MG/DL RISK RATIO LDL/HDL (test cod e = 2238) 2.91 RATIO Juan J DowCOMPREHENSIVE METABOLIC [id number] 00:00:00* Test Item Value Reference Range Interpretation Comme nts GLUCOSE (test code = 2217) 94 MG/DL BUN (test code = 2208) 54 MG/DL CREATININE (test code = 2214) 3.54 MG/DL eGFR (2020 CKD-EPI) (test co de = 03229) 17 ML/MIN/1.73 CALC BUN/CREAT (test code = 2235) 15 RATIO SODIUM (test code = 2231) 140 MEQ/L POTASSIUM (test code = 2228) 6.2 MEQ/L CHLORIDE (test code = 2215) 111 MEQ/L CARBON DIOXIDE (test code = 2206) 14 MEQ/L CALCIUM (test code = 2209) 9.3 MG/DL PROTEIN, TOTAL (test code = 2229) 6.3 G/DL ALBUMIN (test code = 2201) 3.8 G/DL CALC GLOBULIN (test code = 2240) 2.5 G/DL CALC A/G RATIO (test code = 2234) 1.5 RATIO BILIRUBIN, TOTAL (test code = 2207) <0.2 MG/DL ALKALINE PHOSPHATASE (test code = 2204) 76 U/L AST (test code = 2218) 33 U/L ALT (test code = 2219) 17 U/L Juan J DowPSA, [id number] 00:00:00* Test Item Value Reference Range Interpretation Comme nts PSA, TOTAL (test code = 2606) 7.76 NG/ML Juan J DowURIC [id number] 00:00:00* Test Item Value Reference Range Interpretation Comme nts URIC ACID (test code = 2233) 7.9 MG/DL Juan J DowMICROSCOPIC URINALYSIS, REFLEX [id number] 00:00:00* Test Item Value Reference Range Interpretation Comme nts WHITE BLOOD CELLS (test code = 1513) 0-5 /HPF RED BLOOD CELLS (test code = 1514) 6-10 /HPF EPITHELIAL CELLS (test code = 20992) 0-5 /HPF BACTERIA (test code = 1515) NONE SEEN CASTS, HYALINE (test code = 1517) TRACE Juan J DowCBC W/AUTO [id number] 00:00:00* Test Item Value Reference Range Interpretation Comme nts WBC (test code = 1001) 5.9 K/UL RBC (test code = 1002) 2.51 M/UL HEMOGLOBIN (test code = 1003) 7.8 G/DL HEMATOCRIT (test code = 1004) 24.9 % MCV (test code = 1005) 99.2 fL MCH (test code = 1006) 31.1 PG MCHC (test code = 1007) 31.3 G/DL RDW (test code = 1038) 14.6 % NEUTROPHILS (test code = 1008) 55.1 % LYMPHOCYTES (test code = 1010) 29.4 % MONOCYTES (test code = 1011) 8.7 % EOSINOPHILS (test code = 1012) 5.8 % BASOPHILS (test code = 1013) 0.7 % IMMATURE GRANULOCYTES (test code = 1036) 0.3 % NUCLEATED RBCS (test code = 1065) 0.0 /100WBC'S PLATELET COUNT (test code = 1015) 386 K/UL ABSOLUTE NEUTROPHILS (test c ode = 1066) 3.22 K/UL ABSOLUTE LYMPHOCYTES (test c ode = 1067) 1.72 K/UL ABSOLUTE MONOCYTES (test cod e = 1068) 0.51 K/UL ABSOLUTE EOSINOPHILS (test c ode = 1040) 0.34 K/UL ABSOLUTE BASOPHILS (test cod e = 1069) 0.04 K/UL ABS IMMATURE GRANULOCYTES (t est code = 1020) 0.02 K/UL ABS NUCLEATED RBCS (test cod e = 72461) 0.00 K/UL COMMENTS (test code = 1016) (NOTE) Juan J Gallegos AustinLIPID [id number] 00:00:00* Test Item Value Reference Range Interpretation Comme nts CHOLESTEROL (test code = 2210) 243 MG/DL TRIGLYCERIDES (test code = 2232) 150 MG/DL HDL CHOLESTEROL (test code = 2220) 55 MG/DL CALC LDL CHOL (test code = 2237) 160 MG/DL RISK RATIO LDL/HDL (test cod e = 2238) 2.91 RATIO Juan J DowCOMPREHENSIVE METABOLIC [id number] 00:00:00* Test Item Value Reference Range Interpretation Comme nts GLUCOSE (test code = 2217) 94 MG/DL BUN (test code = 2208) 54 MG/DL CREATININE (test code = 2214) 3.54 MG/DL eGFR (2020 CKD-EPI) (test co de = 33552) 17 ML/MIN/1.73 CALC BUN/CREAT (test code = 2235) 15 RATIO SODIUM (test code = 2231) 140 MEQ/L POTASSIUM (test code = 2228) 6.2 MEQ/L CHLORIDE (test code = 2215) 111 MEQ/L CARBON DIOXIDE (test code = 2206) 14 MEQ/L CALCIUM (test code = 2209) 9.3 MG/DL PROTEIN, TOTAL (test code = 2229) 6.3 G/DL ALBUMIN (test code = 2201) 3.8 G/DL CALC GLOBULIN (test code = 2240) 2.5 G/DL CALC A/G RATIO (test code = 2234) 1.5 RATIO BILIRUBIN, TOTAL (test code = 2207) <0.2 MG/DL ALKALINE PHOSPHATASE (test code = 2204) 76 U/L AST (test code = 2218) 33 U/L ALT (test code = 2219) 17 U/L Juan J DowPSA, [id number] 00:00:00* Test Item Value Reference Range Interpretation Comme nts PSA, TOTAL (test code = 2606) 7.76 NG/ML Juan J DowURIC [id number] 00:00:00* Test Item Value Reference Range Interpretation Comme nts URIC ACID (test code = 2233) 7.9 MG/DL Juan J DowMICROSCOPIC URINALYSIS, REFLEX [id number] 00:00:00* Test Item Value Reference Range Interpretation Comme nts WHITE BLOOD CELLS (test code = 1513) 0-5 /HPF RED BLOOD CELLS (test code = 1514) 6-10 /HPF EPITHELIAL CELLS (test code = 61013) 0-5 /HPF BACTERIA (test code = 1515) NONE SEEN CASTS, HYALINE (test code = 1517) TRACE Juan J DowCBC W/AUTO [id number] 00:00:00* Test Item Value Reference Range Interpretation Comme nts WBC (test code = 1001) 5.9 K/UL RBC (test code = 1002) 2.51 M/UL HEMOGLOBIN (test code = 1003) 7.8 G/DL HEMATOCRIT (test code = 1004) 24.9 % MCV (test code = 1005) 99.2 fL MCH (test code = 1006) 31.1 PG MCHC (test code = 1007) 31.3 G/DL RDW (test code = 1038) 14.6 % NEUTROPHILS (test code = 1008) 55.1 % LYMPHOCYTES (test code = 1010) 29.4 % MONOCYTES (test code = 1011) 8.7 % EOSINOPHILS (test code = 1012) 5.8 % BASOPHILS (test code = 1013) 0.7 % IMMATURE GRANULOCYTES (test code = 1036) 0.3 % NUCLEATED RBCS (test code = 1065) 0.0 /100WBC'S PLATELET COUNT (test code = 1015) 386 K/UL ABSOLUTE NEUTROPHILS (test c ode = 1066) 3.22 K/UL ABSOLUTE LYMPHOCYTES (test c ode = 1067) 1.72 K/UL ABSOLUTE MONOCYTES (test cod e = 1068) 0.51 K/UL ABSOLUTE EOSINOPHILS (test c ode = 1040) 0.34 K/UL ABSOLUTE BASOPHILS (test cod e = 1069) 0.04 K/UL ABS IMMATURE GRANULOCYTES (t est code = 1020) 0.02 K/UL ABS NUCLEATED RBCS (test cod e = 51505) 0.00 K/UL COMMENTS (test code = 1016) (NOTE) Juan J Gallegos AustinLIPID [id number] 00:00:00* Test Item Value Reference Range Interpretation Comme nts CHOLESTEROL (test code = 2210) 243 MG/DL TRIGLYCERIDES (test code = 2232) 150 MG/DL HDL CHOLESTEROL (test code = 2220) 55 MG/DL CALC LDL CHOL (test code = 2237) 160 MG/DL RISK RATIO LDL/HDL (test cod e = 2238) 2.91 RATIO Juan J DowCOMPREHENSIVE METABOLIC [id number] 00:00:00* Test Item Value Reference Range Interpretation Comme nts GLUCOSE (test code = 2217) 94 MG/DL BUN (test code = 2208) 54 MG/DL CREATININE (test code = 2214) 3.54 MG/DL eGFR (2020 CKD-EPI) (test co de = 47342) 17 ML/MIN/1.73 CALC BUN/CREAT (test code = 2235) 15 RATIO SODIUM (test code = 2231) 140 MEQ/L POTASSIUM (test code = 2228) 6.2 MEQ/L CHLORIDE (test code = 2215) 111 MEQ/L CARBON DIOXIDE (test code = 2206) 14 MEQ/L CALCIUM (test code = 2209) 9.3 MG/DL PROTEIN, TOTAL (test code = 2229) 6.3 G/DL ALBUMIN (test code = 2201) 3.8 G/DL CALC GLOBULIN (test code = 2240) 2.5 G/DL CALC A/G RATIO (test code = 2234) 1.5 RATIO BILIRUBIN, TOTAL (test code = 2207) <0.2 MG/DL ALKALINE PHOSPHATASE (test code = 2204) 76 U/L AST (test code = 2218) 33 U/L ALT (test code = 2219) 17 U/L Juan J DowPSA, [id number] 00:00:00* Test Item Value Reference Range Interpretation Comme nts PSA, TOTAL (test code = 2606) 7.76 NG/ML Juan J DowCBC W/AUTO [id number] 00:00:00* Test Item Value Reference Range Interpretation Comme nts WBC (test code = 1001) 5.9 K/UL RBC (test code = 1002) 2.51 M/UL HEMOGLOBIN (test code = 1003) 7.8 G/DL HEMATOCRIT (test code = 1004) 24.9 % MCV (test code = 1005) 99.2 fL MCH (test code = 1006) 31.1 PG MCHC (test code = 1007) 31.3 G/DL RDW (test code = 1038) 14.6 % NEUTROPHILS (test code = 1008) 55.1 % LYMPHOCYTES (test code = 1010) 29.4 % MONOCYTES (test code = 1011) 8.7 % EOSINOPHILS (test code = 1012) 5.8 % BASOPHILS (test code = 1013) 0.7 % IMMATURE GRANULOCYTES (test code = 1036) 0.3 % NUCLEATED RBCS (test code = 1065) 0.0 /100WBC'S PLATELET COUNT (test code = 1015) 386 K/UL ABSOLUTE NEUTROPHILS (test c ode = 1066) 3.22 K/UL ABSOLUTE LYMPHOCYTES (test c ode = 1067) 1.72 K/UL ABSOLUTE MONOCYTES (test cod e = 1068) 0.51 K/UL ABSOLUTE EOSINOPHILS (test c ode = 1040) 0.34 K/UL ABSOLUTE BASOPHILS (test cod e = 1069) 0.04 K/UL ABS IMMATURE GRANULOCYTES (t est code = 1020) 0.02 K/UL ABS NUCLEATED RBCS (test cod e = 85247) 0.00 K/UL COMMENTS (test code = 1016) (NOTE) Juan J DowURIC [id number] 00:00:00* Test Item Value Reference Range Interpretation Comme nts URIC ACID (test code = 2233) 7.9 MG/DL Juan J DowMICROSCOPIC URINALYSIS, REFLEX [id number] 00:00:00* Test Item Value Reference Range Interpretation Comme nts WHITE BLOOD CELLS (test code = 1513) 0-5 /HPF RED BLOOD CELLS (test code = 1514) 6-10 /HPF EPITHELIAL CELLS (test code = 33864) 0-5 /HPF BACTERIA (test code = 1515) NONE SEEN CASTS, HYALINE (test code = 1517) TRACE Juan J DowCBC W/AUTO [id number] 00:00:00* Test Item Value Reference Range Interpretation Comme nts WBC (test code = 1001) 5.9 K/UL RBC (test code = 1002) 2.51 M/UL HEMOGLOBIN (test code = 1003) 7.8 G/DL HEMATOCRIT (test code = 1004) 24.9 % MCV (test code = 1005) 99.2 fL MCH (test code = 1006) 31.1 PG MCHC (test code = 1007) 31.3 G/DL RDW (test code = 1038) 14.6 % NEUTROPHILS (test code = 1008) 55.1 % LYMPHOCYTES (test code = 1010) 29.4 % MONOCYTES (test code = 1011) 8.7 % EOSINOPHILS (test code = 1012) 5.8 % BASOPHILS (test code = 1013) 0.7 % IMMATURE GRANULOCYTES (test code = 1036) 0.3 % NUCLEATED RBCS (test code = 1065) 0.0 /100WBC'S PLATELET COUNT (test code = 1015) 386 K/UL ABSOLUTE NEUTROPHILS (test c ode = 1066) 3.22 K/UL ABSOLUTE LYMPHOCYTES (test c ode = 1067) 1.72 K/UL ABSOLUTE MONOCYTES (test cod e = 1068) 0.51 K/UL ABSOLUTE EOSINOPHILS (test c ode = 1040) 0.34 K/UL ABSOLUTE BASOPHILS (test cod e = 1069) 0.04 K/UL ABS IMMATURE GRANULOCYTES (t est code = 1020) 0.02 K/UL ABS NUCLEATED RBCS (test cod e = 81793) 0.00 K/UL COMMENTS (test code = 1016) (NOTE) Juan J DowLIPID [id number] 00:00:00* Test Item Value Reference Range Interpretation Comme nts CHOLESTEROL (test code = 2210) 243 MG/DL TRIGLYCERIDES (test code = 2232) 150 MG/DL HDL CHOLESTEROL (test code = 2220) 55 MG/DL CALC LDL CHOL (test code = 2237) 160 MG/DL RISK RATIO LDL/HDL (test cod e = 2238) 2.91 RATIO Juan J Gallegos AustinLIPID [id number] 00:00:00* Test Item Value Reference Range Interpretation Comme nts CHOLESTEROL (test code = 2210) 243 MG/DL TRIGLYCERIDES (test code = 2232) 150 MG/DL HDL CHOLESTEROL (test code = 2220) 55 MG/DL CALC LDL CHOL (test code = 2237) 160 MG/DL RISK RATIO LDL/HDL (test cod e = 2238) 2.91 RATIO Juan J DowCOMPREHENSIVE METABOLIC [id number] 00:00:00* Test Item Value Reference Range Interpretation Comme nts GLUCOSE (test code = 2217) 94 MG/DL BUN (test code = 2208) 54 MG/DL CREATININE (test code = 2214) 3.54 MG/DL eGFR (2020 CKD-EPI) (test co de = 53950) 17 ML/MIN/1.73 CALC BUN/CREAT (test code = 2235) 15 RATIO SODIUM (test code = 2231) 140 MEQ/L POTASSIUM (test code = 2228) 6.2 MEQ/L CHLORIDE (test code = 2215) 111 MEQ/L CARBON DIOXIDE (test code = 2206) 14 MEQ/L CALCIUM (test code = 2209) 9.3 MG/DL PROTEIN, TOTAL (test code = 2229) 6.3 G/DL ALBUMIN (test code = 2201) 3.8 G/DL CALC GLOBULIN (test code = 2240) 2.5 G/DL CALC A/G RATIO (test code = 2234) 1.5 RATIO BILIRUBIN, TOTAL (test code = 2207) <0.2 MG/DL ALKALINE PHOSPHATASE (test code = 2204) 76 U/L AST (test code = 2218) 33 U/L ALT (test code = 2219) 17 U/L Juan J DowCOMPREHENSIVE METABOLIC [id number] 00:00:00* Test Item Value Reference Range Interpretation Comme nts GLUCOSE (test code = 2217) 94 MG/DL BUN (test code = 2208) 54 MG/DL CREATININE (test code = 2214) 3.54 MG/DL eGFR (2020 CKD-EPI) (test co de = 94878) 17 ML/MIN/1.73 CALC BUN/CREAT (test code = 2235) 15 RATIO SODIUM (test code = 2231) 140 MEQ/L POTASSIUM (test code = 2228) 6.2 MEQ/L CHLORIDE (test code = 2215) 111 MEQ/L CARBON DIOXIDE (test code = 2206) 14 MEQ/L CALCIUM (test code = 2209) 9.3 MG/DL PROTEIN, TOTAL (test code = 2229) 6.3 G/DL ALBUMIN (test code = 2201) 3.8 G/DL CALC GLOBULIN (test code = 2240) 2.5 G/DL CALC A/G RATIO (test code = 2234) 1.5 RATIO BILIRUBIN, TOTAL (test code = 2207) <0.2 MG/DL ALKALINE PHOSPHATASE (test code = 220) 76 U/L AST (test code = 2218) 33 U/L ALT (test code = 2219) 17 U/L Juan J DowPSA, [id number] 00:00:00* Test Item Value Reference Range Interpretation Comme nts PSA, TOTAL (test code = 2606) 7.76 NG/ML Juan J DowPSA, [id number] 00:00:00* Test Item Value Reference Range Interpretation Comme nts PSA, TOTAL (test code = 2606) 7.76 NG/ML Juan J Gallegos AustinURIC [id number] 00:00:00* Test Item Value Reference Range Interpretation Comme nts URIC ACID (test code = 2233) 7.9 MG/DL Juan J DowMICROSCOPIC URINALYSIS, REFLEX [id number] 00:00:00* Test Item Value Reference Range Interpretation Comme nts WHITE BLOOD CELLS (test code = 1513) 0-5 /HPF RED BLOOD CELLS (test code = 1514) 6-10 /HPF EPITHELIAL CELLS (test code = 13701) 0-5 /HPF BACTERIA (test code = 1515) NONE SEEN CASTS, HYALINE (test code = 1517) TRACE Juan J DowCBC W/AUTO [id number] 00:00:00* Test Item Value Reference Range Interpretation Comme nts WBC (test code = 1001) 5.9 K/UL RBC (test code = 1002) 2.51 M/UL HEMOGLOBIN (test code = 1003) 7.8 G/DL HEMATOCRIT (test code = 1004) 24.9 % MCV (test code = 1005) 99.2 fL MCH (test code = 1006) 31.1 PG MCHC (test code = 1007) 31.3 G/DL RDW (test code = 1038) 14.6 % NEUTROPHILS (test code = 1008) 55.1 % LYMPHOCYTES (test code = 1010) 29.4 % MONOCYTES (test code = 1011) 8.7 % EOSINOPHILS (test code = 1012) 5.8 % BASOPHILS (test code = 1013) 0.7 % IMMATURE GRANULOCYTES (test code = 1036) 0.3 % NUCLEATED RBCS (test code = 1065) 0.0 /100WBC'S PLATELET COUNT (test code = 1015) 386 K/UL ABSOLUTE NEUTROPHILS (test c ode = 1066) 3.22 K/UL ABSOLUTE LYMPHOCYTES (test c ode = 1067) 1.72 K/UL ABSOLUTE MONOCYTES (test cod e = 1068) 0.51 K/UL ABSOLUTE EOSINOPHILS (test c ode = 1040) 0.34 K/UL ABSOLUTE BASOPHILS (test cod e = 1069) 0.04 K/UL ABS IMMATURE GRANULOCYTES (t est code = 1020) 0.02 K/UL ABS NUCLEATED RBCS (test cod e = 17792) 0.00 K/UL COMMENTS (test code = 1016) (NOTE) Juan J Gallegos AustinURIC [id number] 00:00:00* Test Item Value Reference Range Interpretation Comme nts URIC ACID (test code = 2233) 7.9 MG/DL Juan J DowLIPID [id number] 00:00:00* Test Item Value Reference Range Interpretation Comme nts CHOLESTEROL (test code = 2210) 243 MG/DL TRIGLYCERIDES (test code = 2232) 150 MG/DL HDL CHOLESTEROL (test code = 2220) 55 MG/DL CALC LDL CHOL (test code = 2237) 160 MG/DL RISK RATIO LDL/HDL (test cod e = 2238) 2.91 RATIO Juan J DowCOMPREHENSIVE METABOLIC [id number] 00:00:00* Test Item Value Reference Range Interpretation Comme nts GLUCOSE (test code = 2217) 94 MG/DL BUN (test code = 2208) 54 MG/DL CREATININE (test code = 2214) 3.54 MG/DL eGFR (2020 CKD-EPI) (test co de = 59459) 17 ML/MIN/1.73 CALC BUN/CREAT (test code = 2235) 15 RATIO SODIUM (test code = 2231) 140 MEQ/L POTASSIUM (test code = 2228) 6.2 MEQ/L CHLORIDE (test code = 2215) 111 MEQ/L CARBON DIOXIDE (test code = 2206) 14 MEQ/L CALCIUM (test code = 2209) 9.3 MG/DL PROTEIN, TOTAL (test code = 2229) 6.3 G/DL ALBUMIN (test code = 2201) 3.8 G/DL CALC GLOBULIN (test code = 2240) 2.5 G/DL CALC A/G RATIO (test code = 2234) 1.5 RATIO BILIRUBIN, TOTAL (test code = 2207) <0.2 MG/DL ALKALINE PHOSPHATASE (test code = 2204) 76 U/L AST (test code = 2218) 33 U/L ALT (test code = 2219) 17 U/L Juan J El Victor MPSA, [id number] 00:00:00* Test Item Value Reference Range Interpretation Comme nts PSA, TOTAL (test code = 2606) 7.76 NG/ML Juan J El AustinMICROSCOPIC URINALYSIS, REFLEX [id number] 00:00:00* Test Item Value Reference Range Interpretation Comme nts WHITE BLOOD CELLS (test code = 1513) 0-5 /HPF RED BLOOD CELLS (test code = 1514) 6-10 /HPF EPITHELIAL CELLS (test code = 94092) 0-5 /HPF BACTERIA (test code = 1515) NONE SEEN CASTS, HYALINE (test code = 1517) TRACE Juan J F AustinURIC [id number] 00:00:00* Test Item Value Reference Range Interpretation Comme nts URIC ACID (test code = 2233) 7.9 MG/DL Juan J F AustinMICROSCOPIC URINALYSIS, REFLEX [id number] 00:00:00* Test Item Value Reference Range Interpretation Comme nts WHITE BLOOD CELLS (test code = 1513) 0-5 /HPF RED BLOOD CELLS (test code = 1514) 6-10 /HPF EPITHELIAL CELLS (test code = 93427) 0-5 /HPF BACTERIA (test code = 1515) NONE SEEN CASTS, HYALINE (test code = 1517) TRACE Juan J F AustinCBC W/AUTO [id number] 00:00:00* Test Item Value Reference Range Interpretation Comme nts WBC (test code = 1001) 5.9 K/UL RBC (test code = 1002) 2.51 M/UL HEMOGLOBIN (test code = 1003) 7.8 G/DL HEMATOCRIT (test code = 1004) 24.9 % MCV (test code = 1005) 99.2 fL MCH (test code = 1006) 31.1 PG MCHC (test code = 1007) 31.3 G/DL RDW (test code = 1038) 14.6 % NEUTROPHILS (test code = 1008) 55.1 % LYMPHOCYTES (test code = 1010) 29.4 % MONOCYTES (test code = 1011) 8.7 % EOSINOPHILS (test code = 1012) 5.8 % BASOPHILS (test code = 1013) 0.7 % IMMATURE GRANULOCYTES (test code = 1036) 0.3 % NUCLEATED RBCS (test code = 1065) 0.0 /100WBC'S PLATELET COUNT (test code = 1015) 386 K/UL ABSOLUTE NEUTROPHILS (test c ode = 1066) 3.22 K/UL ABSOLUTE LYMPHOCYTES (test c ode = 1067) 1.72 K/UL ABSOLUTE MONOCYTES (test cod e = 1068) 0.51 K/UL ABSOLUTE EOSINOPHILS (test c ode = 1040) 0.34 K/UL ABSOLUTE BASOPHILS (test cod e = 1069) 0.04 K/UL ABS IMMATURE GRANULOCYTES (t est code = 1020) 0.02 K/UL ABS NUCLEATED RBCS (test cod e = 47212) 0.00 K/UL COMMENTS (test code = 1016) (NOTE) Juan J DowLIPID [id number] 00:00:00* Test Item Value Reference Range Interpretation Comme nts CHOLESTEROL (test code = 2210) 243 MG/DL TRIGLYCERIDES (test code = 2232) 150 MG/DL HDL CHOLESTEROL (test code = 2220) 55 MG/DL CALC LDL CHOL (test code = 2237) 160 MG/DL RISK RATIO LDL/HDL (test cod e = 2238) 2.91 RATIO Juan J DowCOMPREHENSIVE METABOLIC [id number] 00:00:00* Test Item Value Reference Range Interpretation Comme nts GLUCOSE (test code = 2217) 94 MG/DL BUN (test code = 2208) 54 MG/DL CREATININE (test code = 2214) 3.54 MG/DL eGFR (2020 CKD-EPI) (test co de = 28916) 17 ML/MIN/1.73 CALC BUN/CREAT (test code = 2235) 15 RATIO SODIUM (test code = 2231) 140 MEQ/L POTASSIUM (test code = 2228) 6.2 MEQ/L CHLORIDE (test code = 2215) 111 MEQ/L CARBON DIOXIDE (test code = 2206) 14 MEQ/L CALCIUM (test code = 2209) 9.3 MG/DL PROTEIN, TOTAL (test code = 2229) 6.3 G/DL ALBUMIN (test code = 2201) 3.8 G/DL CALC GLOBULIN (test code = 2240) 2.5 G/DL CALC A/G RATIO (test code = 2234) 1.5 RATIO BILIRUBIN, TOTAL (test code = 2207) <0.2 MG/DL ALKALINE PHOSPHATASE (test code = 2204) 76 U/L AST (test code = 2218) 33 U/L ALT (test code = 2219) 17 U/L Juan J El Victor MPSA, [id number] 00:00:00* Test Item Value Reference Range Interpretation Comme nts PSA, TOTAL (test code = 2606) 7.76 NG/ML Juan J Gallegos Victor MURIC [id number] 00:00:00* Test Item Value Reference Range Interpretation Comme nts URIC ACID (test code = 2233) 7.9 MG/DL Juan J El Victor MMICROSCOPIC URINALYSIS, REFLEX [id number] 00:00:00* Test Item Value Reference Range Interpretation Comme nts WHITE BLOOD CELLS (test code = 1513) 0-5 /HPF RED BLOOD CELLS (test code = 1514) 6-10 /HPF EPITHELIAL CELLS (test code = 24675) 0-5 /HPF BACTERIA (test code = 1515) NONE SEEN CASTS, HYALINE (test code = 1517) TRACE Juan J El Victor MCBC W/AUTO [id number] 00:00:00* Test Item Value Reference Range Interpretation Comme nts WBC (test code = 1001) 5.9 K/UL RBC (test code = 1002) 2.51 M/UL HEMOGLOBIN (test code = 1003) 7.8 G/DL HEMATOCRIT (test code = 1004) 24.9 % MCV (test code = 1005) 99.2 fL MCH (test code = 1006) 31.1 PG MCHC (test code = 1007) 31.3 G/DL RDW (test code = 1038) 14.6 % NEUTROPHILS (test code = 1008) 55.1 % LYMPHOCYTES (test code = 1010) 29.4 % MONOCYTES (test code = 1011) 8.7 % EOSINOPHILS (test code = 1012) 5.8 % BASOPHILS (test code = 1013) 0.7 % IMMATURE GRANULOCYTES (test code = 1036) 0.3 % NUCLEATED RBCS (test code = 1065) 0.0 /100WBC'S PLATELET COUNT (test code = 1015) 386 K/UL ABSOLUTE NEUTROPHILS (test c ode = 1066) 3.22 K/UL ABSOLUTE LYMPHOCYTES (test c ode = 1067) 1.72 K/UL ABSOLUTE MONOCYTES (test cod e = 1068) 0.51 K/UL ABSOLUTE EOSINOPHILS (test c ode = 1040) 0.34 K/UL ABSOLUTE BASOPHILS (test cod e = 1069) 0.04 K/UL ABS IMMATURE GRANULOCYTES (t est code = 1020) 0.02 K/UL ABS NUCLEATED RBCS (test cod e = 86051) 0.00 K/UL COMMENTS (test code = 1016) (NOTE) Juan J Gallegos AustinLIPID [id number] 00:00:00* Test Item Value Reference Range Interpretation Comme nts CHOLESTEROL (test code = 2210) 243 MG/DL TRIGLYCERIDES (test code = 2232) 150 MG/DL HDL CHOLESTEROL (test code = 2220) 55 MG/DL CALC LDL CHOL (test code = 2237) 160 MG/DL RISK RATIO LDL/HDL (test cod e = 2238) 2.91 RATIO Juan J DowCOMPREHENSIVE METABOLIC [id number] 00:00:00* Test Item Value Reference Range Interpretation Comme nts GLUCOSE (test code = 2217) 94 MG/DL BUN (test code = 2208) 54 MG/DL CREATININE (test code = 2214) 3.54 MG/DL eGFR (2020 CKD-EPI) (test co de = 07583) 17 ML/MIN/1.73 CALC BUN/CREAT (test code = 2235) 15 RATIO SODIUM (test code = 2231) 140 MEQ/L POTASSIUM (test code = 2228) 6.2 MEQ/L CHLORIDE (test code = 2215) 111 MEQ/L CARBON DIOXIDE (test code = 2206) 14 MEQ/L CALCIUM (test code = 2209) 9.3 MG/DL PROTEIN, TOTAL (test code = 2229) 6.3 G/DL ALBUMIN (test code = 2201) 3.8 G/DL CALC GLOBULIN (test code = 2240) 2.5 G/DL CALC A/G RATIO (test code = 2234) 1.5 RATIO BILIRUBIN, TOTAL (test code = 2207) <0.2 MG/DL ALKALINE PHOSPHATASE (test code = 2204) 76 U/L AST (test code = 2218) 33 U/L ALT (test code = 2219) 17 U/L Juan J Gallegos AustinSTREP A [id number] 00:00:00* Test Item Value Reference Range Interpretation Comme nts Result (test code = 62109-9) NG LIPID PANEL WITH REFLEX DIRECT [id number] 00:00:00* Test Item Value Reference Range Interpretation Comme nts CALC LDL CHOL (test code = 75873-7) 86 MG/DL See_Comment [Automated [employer] ge] The system which generated this result transmitted reference range: <100 MG/DL. The reference range was not used to interpret this result as normal/abnormal. CHOLESTEROL (test code = 2093-3) 149 MG/DL See_Comment [Automated [employer]] The system which generated this result transmitted reference range: <200 MG/DL. The reference range was not used to interpret this result as normal/abnormal. HDL CHOLESTEROL (test code = 2085-9) 41 MG/DL See_Comment [Automated [employer]] The system which generated this result transmitted reference range: >39 MG/DL. The reference range was not used to interpret this result as normal/abnormal. RISK RATIO LDL/HDL (test code = 24969-7) 2.10 RATIO See_Comment [Automated message] The system which generated this result transmitted reference range: <3.55 RATIO. The reference range was not used to interpret this result as normal/abnormal. TRIGLYCERIDES (test code = 2571-8) 122 MG/DL See_Comment [Automated [employer]] The system which generated this result transmitted reference range: <150 MG/DL. The reference range was not used to interpret this result as normal/abnormal. POC, COVID 19 Antigen + Flu by SofiaPOC, COVID 19 Antigen + Flu by Adelina Notes Date/Time Note Provider Source [facility] [address]2025-07-17 00:00:00 [facility] [address]2025-07-03 00:00:00 [facility] [address]2025-05-29 00:00:00 [facility] [address]2025-03-18 00:00:00 [facility] [address]2025-02-26 00:00:00 [facility] [address]2025-02-04 00:00:00 [facility] [address]2024-12-16 00:00:00 [facility] [address]2024-11-25 00:00:00 [facility] [address]2024-11-20 00:00:00 [facility] [address]2024-10-14 00:00:00 [facility] [address]2024-09-25 00:00:00 [facility] [address]2024-09-09 00:00:00 [facility] [address]2024-08-19 00:00:00 [facility] [address]2024-08-07 00:00:00 [facility] [address]2024-07-12 00:00:00 [facility] [address]
[2025-01-06] MEDS ORDERED: ONDANSETRON 4 MG/2 ML VIAL ONE (11:41)
[2025-01-06 11:45] LABS: Absolute Lymphocytes (CBC) 0.6 K/uL (0.7-4.9); Hematocrit 26.0 % (39.6-49.0); Hemoglobin 8.7 g/dL (13.6-17.9); MCH 30.8 pg (27.0-35.0); MCHC 33.4 g/dL (32.0-36.0); MCV 92.1 fL (80-100); MPV 7.1 fL (7.6-11.3); Nucleated RBC Absolute Count 0.0 (0-0); Nucleated Red Blood Cells % 0.0 % (0-0); RBC Red Blood Cell Count 2.83 M/uL (4.33-5.43); White Blood Count 6.30 thou/uL (4.3-10.9)
--- NOTE | 2025-01-06 11:49 | RAD REPORT ---
EXAM: Chest Single View HISTORY: 79 years Male PAIN COMPARISON: 10/08/2024 FINDINGS: LUNGS/PLEURA: The lungs are clear. No pleural effusions or pneumothorax. No pulmonary edema. CARDIAC/MEDIASTINUM: Mild cardiomegaly UPPER ABDOMEN: No significant abnormality. BONES: No acute abnormality. LINES/TUBES/OTHER: Right IJ approach dialysis catheter with tip overlying the SVC. IMPRESSION: No evidence of acute cardiopulmonary disease.
--- NOTE | 2025-01-06 11:58 | RAD REPORT ---
EXAMINATION: Head Brain Wo Cont CLINICAL INDICATION: Male, 79 years old.SYNCOPE TECHNIQUE: Axial CT images from the skull base to the vertex without intravenous contrast. Coronal an d sagittal reformatted images were created from the data set. One or more of the following dose reduction techniques were used: Automated exposure control, adjustment of the mA and/or kV according to patient size, and/or iterative reconstruction. Unless otherwise specified, incidental findings do not require dedicated imaging follow-up. [id number]. COMPARISON: 09/02/2024 FINDINGS: INTRACRANIAL: No acute intracranial hemorrhage. No acute large vascular territory infarct. No hydroce phalus. No mass effect or midline shift. Mild chronic small vessel ischemic changes.Mild cerebral atrophy. VASCULATURE: No visualized abnormalities in the arteries or dural venous sinuses. SCALP/SKULL: No calvarial fracture identified. No acute soft tissue abnormality. SINUSES: The visualized paranasal sinuses are mostly clear. No significant mastoid fluid. IMPRESSION: No acute intracranial abnormality.
[2025-01-06 12:03] LABS: ALT/SGPT 30 U/L (16-61); Albumin 3.5 g/dL (3.4-5.0); Albumin/Globulin Ratio 0.9 (1.1-1.8); Alkaline Phosphatase 89 U/L (45-117); Anion Gap 10.0 mEq/L (5.0-15.0); BUN Blood Urea Nitrogen 42 mg/dL (7-18); Globulin 3.9 g/dL (2.3-3.5); Glucose Level 157 mg/dL (74-106); Magnesium 2.0 mg/dL (1.6-2.4); Potassium 4.0 mEq/L (3.5-5.1)
[2025-01-06 12:05] LABS: AST/SGOT < 10 U/L (15-37); Bilirubin Indirect, Calculated 0.2 mg/dL (0.2-0.8)
--- NOTE | 2025-01-06 12:58 | EDPHYS ---
Physician Documentation [facility] Name: Iam Nelson Age: 79 yrs Sex: Male : 1945 Arrival Date: 01/06/2025 Time: 11:05 Bed 18 Private MD: ED Physician Ander Perdomo HPI: 01/06 11:14 This 79 yrs old Male presents to ER via EMS with complaints of Nausea, dr5 vomiting, dizziness. 11:14 Onset: The symptoms/episode began/occurred acutely. Patient is a 79-year-old male with dr5 history of kidney disease, BPH, hypertension, end-stage renal disease on dialysis Monday and Monday. Patient reports that he finished dialysis today and when he got home became dizzy with nausea and vomiting. Patient denies this happening before in the past. Patient denies loss of conscious.. Historical: - Allergies: 11:13 No Known Allergies; ar8 - Home Meds: 11:13 Atenolol Oral [Active]; furosemide 40 mg Oral tablet [Active]; ar8 - PMHx: 11:13 Cataracts; kidney disease; inflammed prostate; Hyperlipidemia; Hypertension; End stage ar8 renal disease; - PSHx: 11:13 cataracts; fistula (ct); ar8 - Immunization history:: Adult Immunizations unknown. - Infectious Disease History:: Denies. - Social history:: Smoking status: Patient denies any tobacco usage or history of. ROS: 11:35 Constitutional: as per hpi dr5 Exam: 11:35 Constitutional: This is a well developed, well nourished patient who is awake, alert, dr5 and in no acute distress. Head/Face: Normocephalic, atraumatic. Eyes: Pupils equal round and reactive to light, extra-ocular motions intact. Lids and lashes normal. Conjunctiva and sclera are non-icteric and not injected. Cornea within normal limits. Periorbital areas with no swelling, redness, or edema. 11:35 Chest/axilla: Normal chest wall appearance and motion. Nontender with no deformity. No lesions are appreciated. Cardiovascular: Regular rate and rhythm with a normal S1 and S2. Normal PMI, no JVD. No pulse deficits. Respiratory: Lungs have equal breath sounds bilaterally, clear to auscultation. No rales, rhonchi or wheezes noted. No increased work of breathing, no retractions or nasal flaring. Back: No spinal tenderness. No costovertebral tenderness. Full range of motion. Skin: Warm, dry with normal turgor. Normal color with no rashes, no lesions, and no evidence of cellulitis. MS/ Extremity: Pulses equal, no cyanosis. Neurovascular intact. Full, normal range of motion. Neuro: Awake and alert, GCS 15, oriented to person, place, time, and situation. Cranial nerves II-XII grossly intact. Motor strength 5/5 in all extremities. Sensory grossly intact. Cerebellar exam normal. Normal gait. 11:35 ENT: External ear(s): are unremarkable, Ear canal(s): erythema, that is moderate, of the left canal, purulent discharge, that is moderate, in the left canal, swelling, that is moderate, of the left canal, Examination of the other ear shows no obvious abnormality, Mouth: is normal, 11:35 Cardiovascular: Dialysis shunt: in the right bicep, with palpable thrill, with auscultated bruit, with no erythema, with no edema, no bleeding noted Vital Signs: 11:02 BP 145 / 57; Pulse 80; Resp 16; Temp 98.1(O); Pulse Ox 100% on R/A; Weight 54.43 kg; ar8 Height 5 ft. 4 in. ; Pain 0/10; 12:30 BP 132 / 53; Pulse 89; Resp 17; Pulse Ox 100% ; Pain 0/10; ar8 13:04 BP 134 / 54; Pulse 80; Resp 14 S; Pulse Ox 100% on R/A; Pain 0/10; ar8 11:02 Body Mass Index 20.60 (54.43 kg, 162.56 cm) ar8 11:02 Pain Scale: Adult ar8 12:30 Pain Scale: Adult ar8 13:04 Pain Scale: Adult ar8 MDM: 11:10 Medical Screening Exam initiated dr5 16:06 Differential Diagnosis altered mental status, Electrolyte abnormality, intracranial dr5 hemorrhage, pneumonia, syncope. Data reviewed: vital signs, nurses notes, lab test result(s), CBC, white blood cell count, hemoglobin, hematocrit, platelets, electrolytes, sodium, potassium, chloride, serum bicarbonate, BUN, creatinine, serum glucose, Hepatic function, magnesium, EKG, radiologic studies, CT scan, plain films. Consideration of Admission/Observation Escalation of care including admission/observation considered. Escalation considered if patient found to have intracranial hemorrhage. I considered the following discharge prescriptions or medication management in the emergency department Medications were administered in the Emergency Department. See JUL. 16:11 Historians other than the Patient: Daughter/Son: Son at bedside. Care significantly dr5 affected by the following chronic conditions: Diabetes, Hypertension, Chronic Kidney Disease, Liver Disease. Care significantly affected by the following Social Determinants of Health: Poor access to healthcare and/or lack of insurance, Poor access to transportation, Problems related to employment. Counseling: I had a detailed discussion with the patient and/or guardian regarding the historical points, exam findings, and any diagnostic results supporting the discharge/admit diagnosis, the presence of at least one elevated blood pressure reading (>120/80) during this emergency department visit, lab results, radiology results, the need for outpatient follow up, for definitive care, a family practitioner, to return to the emergency department if symptoms worsen or persist or if there are any questions or concerns that arise at home. Special discussion: I have referred the patient to see his PCP for further evaluation of high blood pressure. I discussed with the patient/guardian in detail that at this point there is no indication for admission to the hospital. It is understood, however, that if the symptoms persist or worsen the patient needs to return immediately for re-evaluation. Based on the history and exam findings, there is no indication for further emergent testing or inpatient evaluation. Nephrology. ED course: Patient reports he feels fine and has not any complaints. All questions answered. Strict ER precautions given. All labs given to patient to take with him to private primary care doctor. Patient reports he is feeling great. Will also give patient Ciprodex to help with left-sided otitis externa which could be the reason patient became dizzy.. 01/06 11:10 Order name: Basic Metabolic Panel; Complete Time: 12:01/06 11:10 Order name: CBC with Diff; Complete Time: 11:50 01/06 11:10 Order name: Hepatic Function; Complete Time: 12:01/06 11:10 Order name: Magnesium; Complete Time: 12:01/06 11:10 Order name: CT Head Brain wo Cont; Complete Time: 12:00 01/06 11:10 Order name: Chest Single View XRAY; Complete Time: 11:50 [facility] 01/06 11:10 Order name: EKG; Complete Time: 11:10 [facility] 01/06 11:10 Order name: Cardiac monitoring; Complete Time: 12: [facility] 01/06 11:10 Order name: EKG - Nurse/Tech; Complete Time: 12: [facility] 01/06 11:10 Order name: IV Saline Lock; Complete Time: 12: [facility] 01/06 11:10 Order name: Labs collected and sent; Complete Time: 12: [facility] 01/06 11:10 Order name: NPO; Complete Time: 12: [facility] 01/06 11:10 Order name: O2 Per Protocol; Complete Time: 12: [facility] 01/06 11:10 Order name: O2 Sat Monitoring; Complete Time: : [facility] EC:23 Rate is 81 beats/min. Rhythm is regular. QRS Curtice is Normal. [place] interval is normal at dr5 144 msec. QRS interval is normal at 72 msec. QT interval is normal at 386 msec. Clinical impression: Normal ECG and No evidence of ischemia. Administered Medications: 12:07 Not Given (Patient Refused): ondansetron 4 mg IVP once; over 2 minutes ar8 Disposition: 18:29 I was immediately available on-site in the Emergency Department for consultation in the ms3 care of the patient. Disposition Summary: 01/06/25 12:58 Discharge Ordered Notes: Location: Home dr5 Condition: Stable dr5 Diagnosis - Other otitis externa, left ear dr5 - Dizziness and giddiness dr5 Followup: dr5 - With: Emergency Department - When: As needed - Reason: Worsening of condition Followup: dr5 - With: Private Physician - When: 1 - 2 days - Reason: Recheck today's complaints, Continuance of care, Re-evaluation by your physician Discharge Instructions: - Discharge Summary Sheet dr5 - Otitis Externa dr5 - Vertigo dr5 - Dialysis dr5 Forms: - Medication Reconciliation Form dr5 - Antibiotic Education dr5 - Patient Portal Instructions dr5 - Leadership Thank You Letter dr5 Prescriptions: - Ciprodex 0.3-0.1 % Otic drops, suspension - instill 4 drops OTIC route every 12 hours for 7 days , for ears ONLY; 60 drop; dr5 Refills: 0, Product Selection Permitted Signatures: Dispatcher [employer] EDMS Ander Perdomo, DO ms3 Carlos Manuel Colbert FNP-C FNP-Cdr5 Delroy Toney, RN RN ar8
--- NOTE | 2025-01-06 12:58 | ER ---
Nurse's Notes [facility] Name: Iam Nelson Age: 79 yrs Sex: Male : 1945 Arrival Date: 01/06/2025 Time: 11:05 Bed 18 Private MD: Diagnosis: Other otitis externa, left ear;Dizziness and giddiness Presentation: 01/06 11:02 Chief complaint: Patient states: patient states that after dialysis he had a near ar8 syncopal episode with N/V while at home. Patient states that he still feels dizzy but denies N/V or any other symptoms. 11:02 Coronavirus screen: At this time, the client does not indicate any symptoms associated ar8 with coronavirus-19. Ebola Screen: No symptoms or risks identified at this time. Initial Sepsis Screen: Does the patient meet any 2 criteria? No. Patient's initial sepsis screen is negative. Does the patient have a suspected source of infection? No. Patient's initial sepsis screen is negative. Risk Assessment: Do you want to hurt yourself or someone else? Patient reports no desire to harm self or others. Onset of symptoms was January 06, 2025 at 10:00. 11:02 Method Of Arrival: EMS: [facility] ar8 11:02 Acuity: DORA 3 ar8 Triage Assessment: 11:13 General: Appears in no apparent distress. Behavior is calm, cooperative, appropriate ar8 for age. Pain: Denies pain. EENT: No deficits noted. Neuro: Level of Consciousness is awake, alert, obeys commands, Oriented to person, place, time, situation, Creping Machine Operator are equal bilaterally Reports dizziness, since 1000. Cardiovascular: No deficits noted. Denies chest pain. Respiratory: No deficits noted. Airway is patent Respiratory effort is even, unlabored, Respiratory pattern is regular, symmetrical. GI: No deficits noted. Historical: - Allergies: 11:13 No Known Allergies; ar8 - Home Meds: 11:13 Atenolol Oral [Active]; furosemide 40 mg Oral tablet [Active]; ar8 - PMHx: 11:13 Cataracts; kidney disease; inflammed prostate; Hyperlipidemia; Hypertension; End stage ar8 renal disease; - PSHx: 11:13 cataracts; fistula (ct); ar8 - Immunization history:: Adult Immunizations unknown. - Infectious Disease History:: Denies. - Social history:: Smoking status: Patient denies any tobacco usage or history of. Screenin:16 [facility] ED Fall Risk Assessment (Adult) History of falling in the last 3 months, ar8 including since admission No falls in past 3 months (0 pts) Confusion or Disorientation No (0 pts) Intoxicated or Sedated No (0 pts) Impaired Gait No (0 pts) Mobility Assist Device Used No (0 pt) Altered Elimination No (0 pt) Score/Fall Risk Level 0 - 2 = Low Risk. Abuse screen: Denies threats or abuse. Nutritional screening: No deficits noted. Tuberculosis screening: No symptoms or risk factors identified. Assessment: 11:16 Reassessment: See triage assessment. ar8 12:58 Reassessment: Patient and/or family updated on plan of care and expected duration. Pain ar8 level reassessed. Patient is alert, oriented x 3, equal unlabored respirations, skin warm/dry/pink. Patient states feeling better. Patient states symptoms have improved. Vital Signs: 11:02 BP 145 / 57; Pulse 80; Resp 16; Temp 98.1(O); Pulse Ox 100% on R/A; Weight 54.43 kg; ar8 Height 5 ft. 4 in. ; Pain 0/10; 12:30 BP 132 / 53; Pulse 89; Resp 17; Pulse Ox 100% ; Pain 0/10; ar8 13:04 BP 134 / 54; Pulse 80; Resp 14 S; Pulse Ox 100% on R/A; Pain 0/10; ar8 11:02 Body Mass Index 20.60 (54.43 kg, 162.56 cm) ar8 11:02 Pain Scale: Adult ar8 12:30 Pain Scale: Adult ar8 13:04 Pain Scale: Adult ar8 ED Course: 11:09 Patient arrived in ED. dr5 11:09 Carlos Manuel Colbert FNP-C is [facility]. dr5 11:09 Ander Perdomo DO is Attending Physician. dr5 11:10 Delroy Toney, JEREMY is Primary Nurse. ar8 11:13 Triage completed. ar8 11:13 Arm band placed on right wrist. ar8 11:16 Bed in low position. Call light in reach. Side rails up X2. Provided Education on: plan ar8 of care. 11:16 No provider procedures requiring assistance completed. ar8 11:[address] via stretcher. ar8 11:31 Inserted saline lock: 22 gauge in left forearm, using aseptic technique. Blood ar8 collected. Flushed with 10 mL NS. 11:38 CT Head Brain wo Cont In Process Unspecified. EDMS 11:43 Chest Single View XRAY In Process Unspecified. EDMS 13:04 IV discontinued, intact, bleeding controlled, No redness/swelling at site. Pressure ar8 dressing applied. Administered Medications: 12:07 Not Given (Patient Refused): ondansetron 4 mg IVP once; over 2 minutes ar8 Medication: 11:16 VIS not applicable for this client. ar8 Outcome: 12:58 Discharge ordered by MD. dr5 13:14 Discharged to home via wheelchair, with family, ar8 13:14 Condition: stable 13:14 Discharge instructions given to patient, family, Instructed on discharge instructions, follow up and referral plans. medication usage, Demonstrated understanding of instructions, follow-up care, medications, Prescriptions given X 1, 13:14 Patient left the ED. ar8 Signatures: Dispatcher [employer] Carlos Manuel Mcintyre, BENZENE WASHER-C BENZENE WASHER-Cdr5 Delroy Toney, RN RN ar8
[2025-01-06 16:37] VITALS: O2SAT 100
[2025-01-06 16:41] VITALS: BP 134/54
== END 2025-01-06 13:14 | disposition home or self-care (01) ==
LOC: ER 11:05
DX: H60.8X2 Other otitis externa, left ear (principal)
CPT/HCPCS: 93005; 85025; 80048; 36415; 83735; 80076; 70450; 71045; 99284; J2405

== ENCOUNTER 2025-01-13 06:17 | Inpatient (IN) | payer OTHER ==
--- OUTSIDE RECORDS SUMMARY | 2025-01-13 06:28 | XMS REPORT | Continuity of Care Document ---
Author Name Unknown Address [address] [facility] [address] [place] [address] Organization [facility] Address [address] [facility] [address] [place] [address] Care Team Providers Care Health Associate Name Role Phone Liyah Arias Primary Care Physician [phone] Chrystal Walker Attending Clinician Unavail Harshil Harding Attending Clinician Unavailable Payers Payer Name Policy Type Policy Number Effective Date Expirati on Date Source [facility] Dual Complete Choice (Regional PPO D-SNP) [id number] 2022 00:00:00 [facility] MEDICAID [place] [id number] [facility] MEDICAID MC [id number] [facility] Problems Condition Name Condition Details Condition Category Status Onset Date Resolution Date Last Treatment Date Treating Clinician Comments Source [id number] BRAEDEN (generaliz ed anxiety disorder) Problem [facility] Chronic kidney disease stage 3B (disorder) Stage 3b chronic kidney disease Problem [facility] [id number] Essential hypertensi on Problem [facility] [id number] Mixed hyperlipid emia Problem [facility] [id number] Non-season al allergic rhinitis due to other allergic trigger Problem [facility] [id number] Benign prostatic hyperplasi a, unspecifie d whether lower urinary tract symptoms present Problem [facility] [id number] Absolute glaucoma of both eyes Problem [facility] [id number] Atopic dermatitis , unspecifie d type Problem [facility] [id number] Anemia of chronic disease Problem [facility] [id number] CKD (chronic kidney disease) stage 4, GFR 15-29 ml/min Problem [facility] [id number] Chronic gout due to renal impairment without tophus, unspecifie d site Problem [facility] [id number] Bilateral hearing loss, unspecifie d hearing loss type Problem [facility] Allergies, Adverse Reactions, Alerts Allergy Name Allergy Type Status Severity Reaction(s) Onset Date Inactive Date Treating Clinician Comments Source none (Not Checked) Propensi ty to adverse reaction to drug Active 12 00:00: 00 Juan J Dow Social History Social Habit Start Date Stop Date Quantity Comments Source History of Tobacco Use [facility] Sex Assigned At [facility] Smoking Status Start Date Stop Date Source Never Smoker [facility] Medications Ordered Medication Name Filled Medication Name Start Date Stop Date Current Medication? Ordering Clinician Indication Dosage Frequency Signature (SIG) Comments Components Source prednisone 20 mg tablet 8-22 00:00: 00 Yes 2mg Juan J oDw ciprofloxac in 0.3 %-dexametha sone 0.1 % ear drops,suspe nsion 7-03 00:00: 00 Yes 4% Juan J Dow nebivolol 2.5 mg tablet 6-18 00:00: 00 Yes 1mg Juan J Dow allopurinol 100 mg tablet 4-15 00:00: 00 Yes 12mg Juan J Dow triamcinolo ne acetonide 0.1 % topical cream 3-18 00:00: 00 Yes 1% Juan J Dow mupirocin 2 % topical ointment 3-18 00:00: 00 Yes 1% Juan J Dow mirtazapine 15 mg tablet 3-18 00:00: 00 Yes 1mg Juan J Dow fluticasone propionate 50 mcg/actuati on nasal spray,suspe nsion 3-18 00:00: 00 Yes 2mcg/ac tuation Juan J Dow amlodipine 10 mg tablet 2- 00:00: 00 Yes mg Juan J Dow metoprolol succinate ER 50 mg tablet,exte nded release 24 hr 2- 00:00: 00 Yes 1mg Juan J Dow allopurinol 300 mg tablet 2- 00:00: 00 Yes 1mg Juan J Dow losartan 100 mg tablet 2- 00:00: 00 Yes 1mg Juan J Dow gabapentin 100 mg capsule 2- 00:00: 00 Yes 1mg Juan J Dow losartan 50 mg tablet 2- 00:00: 00 Yes 1mg Juan J Dow [...] Juan J Dow mirtazapine 15 mg tablet 1-15 00:00: 00 Yes mg Juan J Dow trazodone 100 mg tablet 1- 00:00: 00 Yes mg Juan J Dow sodium bicarbonate 650 mg tablet 1- 00:00: 00 Yes mg Juan J Dow Lokelma 10 gram oral powder packet 1- 00:00: 00 Yes gram Juan J Dow furosemide 20 mg tablet 1-08 00:00: 00 Yes mg Juan J Dow metoprolol succinate ER 50 mg tablet,exte nded release 24 hr 2023-05 2-16 00:00: 00 Yes mg Juan J Dow amlodipine 10 mg tablet 2023-05 2-16 00:00: 00 Yes mg Juan J Dow pravastatin 40 mg tablet 2023-05-16 00:00: 00 Yes 1mg Juan J Dow furosemide 20 mg tablet 2023-05-16 00:00: 00 Yes 12mg Juan J Dow losartan 50 mg tablet 2023-05-16 00:00: 00 Yes 1mg Juan J Dow mirtazapine 15 mg tablet 2023-05 00:00: 00 Yes 1mg Juan J Dow Klor-Con M10 mEq tablet,exte nded release 2023-05 00:00: 00 Yes 12mEq Juan J Dow allopurinol 300 mg tablet 2023-05- 00:00: 00 Yes 1mg [...] J Dow hydralazine 10 mg tablet 2023-05 0- 00:00: 00 Yes 1mg Juan J Dow furosemide 20 mg tablet 02-13 00:00: 00 Yes 12mg Juan J Dow Klor-Con M10 mEq tablet,exte nded release 02-13 00:00: 00 Yes 12mEq Juan J Dow cefdinir 300 mg capsule 02-13 00:00: 00 Yes 1mg Juan J Dow allopurinol 100 mg tablet 9- 00:00: 00 Yes 1mg Juan J Dow cetirizine 10 mg tablet - 00:00: 00 Yes 1mg Juan J Dow fluticasone propionate 50 mcg/actuati on nasal spray,suspe nsion - 00:00: 00 Yes 2mcg/ac tuation Juan J Dow metoprolol succinate ER 50 mg tablet,exte nded release 24 hr 8-07 00:00: 00 Yes mg Juan J Dow amlodipine 10 mg tablet 12-26 00:00: 00 Yes mg Juan J Dow pravastatin 40 mg tablet 8- 00:00: 00 Yes 1mg Juan J Dow [...] in 0.4 MG Nitroglycer in 0.4 MG 20 00:00: 00 No Nitroglyce rin 0.4 MG Lokelma 10 GM Lokelma 10 GM - 00:00: 00 No QD Lokelma 10 GM Ferrous Sulfate 325 (65 Fe) MG Ferrous Sulfate 325 (65 Fe) MG -14 00:00: 00 No 1{table t} Ferrous Sulfate 325 (65 Fe) MG pravastatin 40 mg tablet -13 00:00: 00 Yes mg Juan J Dow Citalopram Hydrobromid e 10 MG Citalopram Hydrobromid e 10 MG 6-11 00:00: 00 No 1{table t} QD Citalopram Hydrobromi de 10 MG amlodipine 10 mg tablet -18 00:00: 00 Yes mg Juan J Dow Allopurinol 100 MG Allopurinol 100 MG 4-16 00:00: 00 No QD Allopurino l 100 MG allopurinol 100 mg tablet -16 00:00: 00 Yes mg Juan J Dow Metoprolol Succinate ER 50 MG Metoprolol Succinate ER 50 MG -19 00:00: 00 No 1{table t} QD Metoprolol [...] 10 MG BRINZOLAMID E 1 % SUSP 8- 00:00: 00 Yes Juan J Dow AMLODIPINE BESYLATE 5 MG TABS 6-26 00:00: 00 Yes Juan J Dow LUMIGAN 0.01 % SOLN 5-12 00:00: 00 Yes Juan J Dow ALBUTEROL SULFATE HFA 108 (90 Base) MCG/ACT AERS 4-27 00:00: 00 Yes Juan J Dow FINASTERIDE 5 MG TABS 3-31 00:00: 00 Yes Juan J Dow TOMMily LAKHWINDER TABLETA TODOS LOS EDOUARD ONCE A DAY 3- 00:00: 00 Yes Juan J Dow Kenalog (Triamcinol one) Kenalog (Triamcinol one) 2019-05 0-08 00:00: 00 No 40mg [facility] Lumigan 0.01 % Lumigan 0.01 % [...] height 2023-10-31 11:20:00 65 [in_i] Commo n [facility] weight 2023-10-31 11:20:00 136 [lb_av] Comm on [facility] temperature 2023-10-31 11:20:00 98.4 [degF] Com mon [facility] bmi 2023-10-31 11:20:00 22.63 kg/m2 Comm on [facility] oximetry 2023-10-31 11:20:00 98 % Commo n [facility] respiratory rate 2023-10-31 11:20:00 17 /min [facility] blood pressure systolic 2023-10-31 11:20:00 140 mm[Hg] [facility] blood pressure diastolic 2023-10-31 11:20:00 60 mm[Hg] [facility] height 2023-09-05 14:40:00 65 [in_i] Commo n [facility] weight 2023-09-05 14:40:00 131 [lb_av] Comm on [facility] temperature 2023-09-05 14:40:00 98.7 [degF] Com mon [facility] bmi 2023-09-05 14:40:00 21.8 kg/m2 Commo n [facility] oximetry 2023-09-05 14:40:00 100 % Commo n [facility] respiratory rate 2023-09-05 14:40:00 16 /min Common [facility] blood pressure systolic 2023-09-05 14:40:00 130 mm[Hg] [facility] blood pressure diastolic 2023-09-05 14:40:00 60 mm[Hg] Common [facility] height 2023-08-08 09:00:00 65 [in_i] Commo n [facility] weight 2023-08-08 09:00:00 135 [lb_av] Comm on [facility] temperature 2023-08-08 09:00:00 98.4 [degF] Com mon [facility] bmi 2023-08-08 09:00:00 22.46 kg/m2 Comm on [facility] oximetry 2023-08-08 09:00:00 100 % Commo n [facility] respiratory rate 2023-08-08 09:00:00 16 /min Common [facility] blood pressure systolic 2023-08-08 09:00:00 140 mm[Hg] [facility] blood pressure diastolic 2023-08-08 09:00:00 62 mm[Hg] Common [facility] height 2023-07-18 09:30:00 65 [in_i] Commo n [facility] weight 2023-07-18 09:30:00 131.7 [lb_av] Co mmon [facility] temperature 2023-07-18 09:30:00 98.3 [degF] Com [facility] bmi 2023-07-18 09:30:00 21.91 kg/m2 Comm on [facility] oximetry 2023-07-18 09:30:00 99 % Commo n [facility] respiratory rate 2023-07-18 09:30:00 17 /min [facility] blood pressure systolic 2023-07-18 09:30:00 139 mm[Hg] [facility] blood pressure diastolic 2023-07-18 09:30:00 67 mm[Hg] [facility] height 2023-07-18 09:30:00 65 [in_i] Commo n [facility] weight 2023-07-18 09:30:00 131.7 [lb_av] Co mmon [facility] temperature 2023-07-18 09:30:00 98.3 [degF] Com [facility] bmi 2023-07-18 09:30:00 21.91 kg/m2 Comm on [facility] oximetry 2023-07-18 09:30:00 99 % Commo n [facility] respiratory rate 2023-07-18 09:30:00 17 /min [facility] blood pressure systolic 2023-07-18 09:30:00 139 mm[Hg] [facility] blood pressure diastolic 2023-07-18 09:30:00 67 mm[Hg] [facility] height 2023-03-06 13:30:00 65 [in_i] Commo n [facility] weight 2023-03-06 13:30:00 137.8 [lb_av] Co [facility] temperature 2023-03-06 13:30:00 98.9 [degF] Com [facility] bmi 2023-03-06 13:30:00 22.93 kg/m2 Comm on [facility] oximetry 2023-03-06 13:30:00 99 % Commo n [facility] blood pressure systolic 2023-03-06 13:30:00 130 mm[Hg] [facility] blood pressure diastolic 2023-03-06 13:30:00 60 mm[Hg] [facility] height 2023-01-18 11:00:00 65 [in_i] Commo n [facility] weight 2023-01-18 11:00:00 136.0 [lb_av] Co mmon [facility] temperature 2023-01-18 11:00:00 98.4 [degF] Com [facility] bmi 2023-01-18 11:00:00 22.63 kg/m2 Comm on [facility] oximetry 2023-01-18 11:00:00 98 % Commo n [facility] respiratory rate 2023-01-18 11:00:00 18 /min [facility] blood pressure systolic 2023-01-18 11:00:00 139 mm[Hg] [facility] blood pressure diastolic 2023-01-18 11:00:00 64 mm[Hg] Common [facility] height 2023-01-03 09:20:00 65 [in_i] Commo n [facility] weight 2023-01-03 09:20:00 135.8 [lb_av] Co mmon [facility] temperature 2023-01-03 09:20:00 98.4 [degF] Com mon [facility] bmi 2023-01-03 09:20:00 22.6 kg/m2 Commo n [facility] oximetry 2023-01-03 09:20:00 99 % Commo n [facility] respiratory rate 2023-01-03 09:20:00 17 /min Common [facility] blood pressure systolic 2023-01-03 09:20:00 139 mm[Hg] [facility] blood pressure diastolic 2023-01-03 09:20:00 73 mm[Hg] [facility] height 2022-10-19 11:00:00 65 [in_i] Commo n [facility] weight 2022-10-19 11:00:00 139.0 [lb_av] Co mmon [facility] temperature 2022-10-19 11:00:00 98.1 [degF] Com mon [facility] bmi 2022-10-19 11:00:00 23.13 kg/m2 Comm on [facility] oximetry 2022-10-19 11:00:00 98 % Commo n [facility] respiratory rate 2022-10-19 11:00:00 18 /min [facility] blood pressure systolic 2022-10-19 11:00:00 138 mm[Hg] [facility] blood pressure diastolic 2022-10-19 11:00:00 72 mm[Hg] Common [facility] height 2022-06-21 10:20:00 65 [in_i] Commo n [facility] weight 2022-06-21 10:20:00 137.5 [lb_av] Co mmon [facility] temperature 2022-06-21 10:20:00 97.3 [degF] Com mon [facility] bmi 2022-06-21 10:20:00 22.88 kg/m2 Comm on [facility] oximetry 2022-06-21 10:20:00 99 % Commo n [facility] respiratory rate 2022-06-21 10:20:00 18 /min [facility] blood pressure systolic 2022-06-21 10:20:00 139 mm[Hg] [facility] blood pressure diastolic 2022-06-21 10:20:00 72 mm[Hg] Common [facility] height 2022-06-21 10:30:00 65 [in_i] Commo n [facility] weight 2022-06-21 10:30:00 137.5 [lb_av] Co on [facility] temperature 2022-06-21 10:30:00 97.3 [degF] Com [facility] bmi 2022-06-21 10:30:00 22.88 kg/m2 Comm on [facility] oximetry 2022-06-21 10:30:00 99 % Commo n [facility] respiratory rate 2022-06-21 10:30:00 18 /min Common [facility] blood pressure systolic 2022-06-21 10:30:00 139 mm[Hg] Common [facility] blood pressure diastolic 2022-06-21 10:30:00 72 mm[Hg] Common [facility] height 2022-03-01 10:50:00 65 [in_i] Commo n [facility] weight 2022-03-01 10:50:00 138.6 [lb_av] Co [facility] temperature 2022-03-01 10:50:00 97.9 [degF] Com [facility] bmi 2022-03-01 10:50:00 23.06 kg/m2 Comm on [facility] oximetry 2022-03-01 10:50:00 100 % Commo n [facility] respiratory rate 2022-03-01 10:50:00 17 /min Common [facility] blood pressure systolic 2022-03-01 10:50:00 137 mm[Hg] [facility] blood pressure diastolic 2022-03-01 10:50:00 71 mm[Hg] Common [facility] height 2022-02-04 08:50:00 65 [in_i] Commo n [facility] weight 2022-02-04 08:50:00 139.1 [lb_av] Co mmon [facility] temperature 2022-02-04 08:50:00 97.9 [degF] Com mon [facility] bmi 2022-02-04 08:50:00 23.14 kg/m2 Comm on [facility] oximetry 2022-02-04 08:50:00 100 % Commo n [facility] respiratory rate 2022-02-04 08:50:00 18 /min Common [facility] blood pressure systolic 2022-02-04 08:50:00 132 mm[Hg] [facility] blood pressure diastolic 2022-02-04 08:50:00 73 mm[Hg] Common [facility] height 2021-10-12 10:00:00 65 [in_i] Commo n [facility] weight 2021-10-12 10:00:00 138.2 [lb_av] Co mmon [facility] temperature 2021-10-12 10:00:00 98.1 [degF] Com mon [facility] bmi 2021-10-12 10:00:00 23 kg/m2 Commo n [facility] oximetry 2021-10-12 10:00:00 99 % Commo n [facility] respiratory rate 2021-10-12 10:00:00 18 /min Common [facility] blood pressure systolic 2021-10-12 10:00:00 135 mm[Hg] [facility] blood pressure diastolic 2021-10-12 10:00:00 76 mm[Hg] [facility] height 2021-06-14 13:20:00 65 [in_i] Commo n [facility] weight 2021-06-14 13:20:00 140.3 [lb_av] Co mmon [facility] temperature 2021-06-14 13:20:00 98.6 [degF] Com mon [facility] bmi 2021-06-14 13:20:00 23.34 kg/m2 Comm on [facility] oximetry 2021-06-14 13:20:00 98 % Commo n [facility] respiratory rate 2021-06-14 13:20:00 18 /min Common [facility] blood pressure systolic 2021-06-14 13:20:00 136 mm[Hg] Common [facility] blood pressure diastolic 2021-06-14 13:20:00 72 mm[Hg] Common [facility] height 2021-06-14 13:20:00 65 [in_i] Commo n [facility] weight 2021-06-14 13:20:00 140.3 [lb_av] Co mmon [facility] temperature 2021-06-14 13:20:00 98.6 [degF] Com mon [facility] bmi 2021-06-14 13:20:00 23.34 kg/m2 Comm on [facility] oximetry 2021-06-14 13:20:00 98 % Commo n [facility] blood pressure systolic 2021-06-14 13:20:00 136 mm[Hg] Common [facility] blood pressure diastolic 2021-06-14 13:20:00 72 mm[Hg] [facility] BP Systolic 2025-01-10 16:15:00 190 mm[Hg] Thad Dow BP Diastolic 2025-01-10 16:15:00 94 mm[Hg] Davis Dow Weight Measured 2025-01-10 16:15:00 124.60 pounds Juan J Dow Height Measured 2025-01-10 16:15:00 64.50 inches Juan J Dow Body Temperature 2025-01-10 16:15:00 97.80 degrees Juan J Dow Heart Rate 2025-01-10 16:15:00 87.00 /min Danielle Dow Respiratory Rate 2025-01-10 16:15:00 16.00 /min Juan J F Victor M BP Systolic 2025-01-07 13:48:00 154 mm[Hg] Step hen F Victor M BP Diastolic 2025-01-07 13:48:00 73 mm[Hg] Davis phen F Victor M Weight Measured 2025-01-07 13:48:00 122.80 pounds Juan J F Victor M Height Measured 2025-01-07 13:48:00 64.50 inches Juan J F Victor M Body Temperature 2025-01-07 13:48:00 96.80 degrees Juan J F Victor M Heart Rate 2025-01-07 13:48:00 74.00 /min Danielle en F Victor M Respiratory Rate 2025-01-07 13:48:00 Juan J F Victor M BP Systolic 2024-12-18 14:20:00 217 mm[Hg] Step hen F Victor M BP Diastolic 2024-12-18 14:20:00 76 mm[Hg] Davis phen F Victor M Weight Measured 2024-12-18 14:20:00 125.20 pounds Juan J F Victor M Height Measured 2024-12-18 14:20:00 64.50 inches Juan J F Victor M Body Temperature 2024-12-18 14:20:00 93.00 degrees Juan J F Victor M Heart Rate 2024-12-18 14:20:00 51.00 /min Danielle en F Victor M Respiratory Rate 2024-12-18 14:20:00 18.00 /min Juan J F Victor M BP Systolic 2024-12-05 14:30:00 179 mm[Hg] Step [...] Heart Rate 2024-04-15 10:28:00 90.00 /min Danielle en F Victor M Respiratory Rate 2024-04-15 10:28:00 18.00 /min Juan J F Victor M Encounters Start Date/Time End Date/Time Encounter Type Admission Type Attending [facility] Facility Care Department Encounter ID Source 2024-01-08 15:33[facility] [id number] [facility] 2023-12-01 11:19:00 Outpatient Chrystal Walker [facility] [id number] [facility] 2023-11-07 16:02:00 Outpatient [facility]rystal montemayor [facility] [id number] [facility] 2023-08-23 10:32:00 Outpatient Chrystal Walker [facility] [id number] [facility] 2023-07-31 14:11:00 Outpatient Chrystal Walker [facility] [id number] [facility] 2023-07-18 10:40:00 Outpatient Chrystal Walker [facility] [id number] [facility] 2023-06-27 13:29:00 Outpatient Dunne, Harshil [facility] [id number] [facility] 2023-03-06 13:24:00 Outpatient Dunne, Harshil [facility] [id number] [facility] 2023-01-02 13:44:00 Outpatient Dunne, Harshil [facility] [id number] [facility] 2022-06-17 10:26:01 Outpatient Dunne, Harshil [facility] [id number] [facility] 2021-06-16 14:39:24 Outpatient Dunne, Harshil [facility] [id number] [facility] 2021-06-16 14:03:38 Outpatient Dunne, Harshil [facility] [id number] [facility] 2021-06-16 13:44:46 Outpatient Dunne, Harshil [facility] [id number] [facility] 2021-06-16 13:36:15 Outpatient Dunne, Harshil [facility] [id number] [facility] 2021-06-16 13:31:27 Outpatient Dunne, Harshil [facility] [id number] [facility] 2021-06-16 12:56:38 Outpatient Dunne, Harshil [facility] [id number] [facility] 2021-06-16 12:28:06 Outpatient Dunne, Harshil [facility] [id number] [facility] 2021-06-16 12:27:09 Outpatient Dunne, Harshil [facility] [id number] [facility] 2021-06-16 12:25:55 Outpatient Dunne, Harshil [facility] [id number] [facility] 2021-06-16 12:24:00 Outpatient Dunne, Harshil [facility] [id number] [facility] 2021-06-16 12:00:42 Outpatient Dunne, Harshil [facility] [id number] [facility] 2021-06-16 11:45:34 Outpatient Dunne, Harshil [facility] [id number] [facility] 2021-06-16 11:27:29 Outpatient Dunne, Harshil [facility] [id number] [facility] 2021-06-16 11:23:46 Outpatient Dunne, Harshil [facility] [id number] [facility] 2021-06-16 11:16:21 Outpatient Dunne, Harshil [facility] [id number] [facility] 2021-06-16 11:12:14 Outpatient Dunne, Harshil [facility] [id number] [facility] 2025-01-10 16:06:06 2025-01-10 16:06:06 Outpatient SFA SFA [id number] Juan J Gallegos Victor M 2025-01-10 00:00:00 2025-01-10 00:00:00 Outpatient Visit GARETH [id number] Juan J Dow 2025-01-07 13:47:15 2025-01-07 13:47:15 Outpatient SFA SFA [id number] Juan J Dow 2025-01-07 00:00:00 2025-01-07 00:00:00 Outpatient Visit SFA [id number] Juan J Dow 2024-12-18 14:05:07 2024-12-18 14:05:07 Outpatient SFA SFA [id number] Juan J Dow 2024-12-18 00:00:00 2024-12-18 00:00:00 Outpatient Visit SFA [id number] Juan J Dow 2024-12-05 14:23:24 2024-12-05 14:23:24 Outpatient SFA SFA [id number] Juan J Dow 2024-12-05 00:00:00 2024-12-05 00:00:00 Outpatient Visit SFA [id number] Juan J Dow 2024-11-21 14:00:55 2024-11-21 14:00:55 Outpatient SFA SFA [id number] Juan J Dow 2024-11-21 00:00:00 2024-11-21 00:00:00 Outpatient Visit SFA [id number] Juan J Dow 2024-10-17 09:31:34 2024-10-17 09:31:34 Outpatient SFA SFA [id number] Juan J Dow 2024-10-17 00:00:00 2024-10-17 00:00:00 Outpatient Visit SFA [id number] Juan J Dow 2024-08-06 15:39:24 2024-08-06 15:39:24 Outpatient SFA SFA [id number] Juan J Dow 2024-08-06 00:00:00 2024-08-06 00:00:00 Outpatient Visit SFA [id number] Juan J Dow 2024-07-17 13:09:49 2024-07-17 13:09:49 Outpatient SFA SFA [id number] Juan J Dow 2024-07-17 00:00:00 2024-07-17 00:00:00 Outpatient Visit SFA [id number] Juan J Dow 2024-06-25 15:03:02 2024-06-25 15:03:02 Outpatient SFA SFA [id number] Juan J Dow 2024-06-25 00:00:00 2024-06-25 00:00:00 Outpatient Visit SFA [id number] Juan J Dow 2024-06-24 00:00:00 2024-06-24 00:00:00 (TEL) [facility] [id number] [facility] 2024-05-06 14:20:32 2024-05-06 14:20:32 Outpatient SFA SFA [id number] Juan J Dow 2024-05-06 00:00:00 2024-05-06 00:00:00 Outpatient Visit SFA [id number] Juan J Dow 2024-04-15 10:21:16 2024-04-15 10:21:16 Outpatient SFA SFA [id number] Juan J Dow 2024-04-15 00:00:00 2024-04-15 00:00:00 Outpatient Visit SFA [id number] Juan J Dow 2024-04-10 00:00:00 2024-04-10 00:00:00 Outpatient Visit SFA [id number] Juan J Dow 2024-03-04 16:35:08 2024-03-04 16:35:08 Outpatient SFA SFA [id number] Juan J Dow 2024-03-04 00:00:00 2024-03-04 00:00:00 Outpatient Visit SFA [id number] Juan J Dow 2024-02-14 13:05:08 2024-02-14 13:05:08 Outpatient SFA SFA [id number] Juan J Dow 2024-02-14 00:00:00 2024-02-14 00:00:00 Outpatient Visit SFA [id number] Juan J Dow 2024-01-29 00:00:00 2024-01-29 00:00:00 Outpatient Visit SFA [id number] Juan J Dow 2024-01-08 00:00:00 2024-01-08 00:00:00 Outpatient Visit SFA [id number] Juan J Dow 2023-12-29 08:02:02 2023-12-29 08:02:02 Outpatient SFA SFA [id number] Juan J Dow 2023-12-27 13:22:58 2023-12-27 13:22:58 Outpatient SFA SFA [id number] Juan J Dow 2023-12-27 00:00:00 2023-12-27 00:00:00 Outpatient Visit SFA [id number] Juan J Dow 2023-12-01 10:42:30 2023-12-01 10:42:30 Outpatient SFA SFA [id number] Juan J Dow 2023-12-01 00:00:2023-12-01 00:00:00 Outpatient Visit [facility] [id number] Juan J Dow 2023-11-29 00:00:00 2023-11-29 00:00:00 (TEL) STLMLC STLMLC [id number] [facility] 2023-11-28 00:00:00 2023-11-28 00:00:00 (TEL) STLMLC STLMLC [id number] [facility] 2023-11-20 00:00:00 2023-11-20 00:00:00 (TEL) STLMLC STLMLC [id number] [facility] 2023-11-09 00:00:00 2023-11-09 00:00:00 (TEL) STLMLC STLMLC [id number] [facility] 2023-11-03 00:00:00 2023-11-03 00:00:00 (TEL) STLMLC STLMLC [id number] [facility] 2023-10-31 00:00:00 2023-10-31 00:00:00 OFFICE VISIT ESTAB PT LEVEL 4 STLMLC STLMLC [id number] [facility] 2023-10-31 00:00:00 2023-10-31 00:00:00 (TEL) STLMLC STLMLC [id number] [facility] 2023-10-30 00:00:00 2023-10-30 00:00:00 (TEL) STLMLC STLMLC [id number] [facility] 2023-10-06 00:00:00 2023-10-06 00:00:00 (TEL) STLMLC STLMLC [id number] [facility] 2023-09-20 00:00:00 2023-09-20 00:00:00 (TEL) STLMLC STLMLC [id number] [facility] 2023-09-13 00:00:00 2023-09-13 00:00:00 (TEL) STLMLC STLMLC [id number] [facility] 2023-09-05 00:00:00 2023-09-05 00:00:00 OFFICE VISIT ESTAB PT LEVEL 4 STLMLC STLMLC [id number] [facility] 2023-08-08 00:00:00 2023-08-08 00:00:00 (HOSP F/U) Hospital Follow Up STLMLC STLMLC [id number] [facility] 2023-08-02 00:00:00 2023-08-02 00:00:00 (TEL) STLMLC STLMLC [id number] [facility] 2023-08-02 00:00:00 2023-08-02 00:00:00 (TEL) STLMLC STLMLC [id number] [facility] 2023-07-18 00:00:00 2023-07-18 00:00:00 OFFICE VISIT NEW PT LEVEL 4 STLMLC STLMLC [id number] [facility] 2023-07-18 00:00:00 2023-07-18 00:00:00 SUB ANNUAL [facility] WELLNESS VISIT STLMLC STLMLC [id number] [facility] 2023-06-15 00:00:00 2023-06-15 00:00:00 (TEL) STLMLC STLMLC [id number] [facility] 2023-03-06 00:00:00 2023-03-06 00:00:00 (TEL) STLMLC STLMLC [id number] [facility] 2023-03-06 00:00:00 2023-03-06 00:00:00 OFFICE VISIT ESTAB PT LEVEL 3 STLMLC STLMLC [id number] [facility] 2023-01-18 00:00:00 2023-01-18 00:00:00 OFFICE VISIT ESTAB PT LEVEL 4 STLMLC STLMLC [id number] [facility] 2023-01-03 00:00:00 2023-01-03 00:00:00 OFFICE VISIT ESTAB PT LEVEL 4 STLMLC STLMLC [id number] [facility] 2023-01-02 00:00:00 2023-01-02 00:00:00 (TEL) STLMLC STLMLC [id number] [facility] 2022-10-19 00:00:00 2022-10-19 00:00:00 OFFICE VISIT ESTAB PT LEVEL 4 STLMLC STLMLC [id number] [facility] 2022-07-06 00:00:00 2022-07-06 00:00:00 (TEL) STLMLC STLMLC [id number] [facility] 2022-06-21 00:00:00 2022-06-21 00:00:00 OFFICE VISIT ESTAB PT LEVEL 4 STLMLC STLMLC [id number] [facility] 2022-06-21 00:00:00 2022-06-21 00:00:00 SUB ANNUAL [facility] WELLNESS VISIT STLMLC STLMLC [id number] [facility] 2022-06-21 00:00:00 2022-06-21 00:00:00 (TEL) STLMLC STLMLC [id number] [facility] 2022-03-01 00:00:00 2022-03-01 00:00:00 OFFICE VISIT ESTAB PT LEVEL 4 STLMLC STLMLC [id number] [facility] 2022-02-11 00:00:00 2022-02-11 00:00:00 (TEL) STLMLC STLMLC [id number] [facility] 2022-02-04 00:00:00 2022-02-04 00:00:00 OFFICE VISIT EST PT LEVEL 3 STLMLC STLMLC [id number] [facility] 2022-02-03 00:00:00 2022-02-03 00:00:00 (TEL) STLMLC STLMLC [id number] [facility] 2021-10-12 00:00:00 2021-10-12 00:00:00 OFFICE VISIT ESTAB PT LEVEL 4 STLMLC STLMLC [id number] [facility] 2021-07-29 00:00:00 2021-07-29 00:00:00 (TEL) STLMLC STLMLC [id number] [facility] 2021-07-13 00:00:00 2021-07-13 00:00:00 (TEL) STLMLC STLMLC [id number] [facility] 2021-07-05 00:00:00 2021-07-05 00:00:00 (TEL) STLMLC STLMLC [id number] [facility] 2021-06-14 00:00:00 2021-06-14 00:00:00 OFFICE VISIT EST PT LEVEL 3 STLMLC STLMLC [id number] [facility] 2021-06-14 00:00:00 2021-06-14 00:00:00 SUB ANNUAL [facility] WELLNESS VISIT STLMLC STLMLC [id number] [facility] 2021-05-24 00:00:00 2021-05-24 00:00:00 (TEL) STLMLC STLMLC [id number] [facility] 2021-05-20 00:00:00 2021-05-20 00:00:00 (TEL) STLMLC STLMLC [id number] [facility] 2021-03-11 00:00:00 2021-03-11 00:00:00 (TEL) STLMLC STLMLC [id number] [facility] 2021-03-08 00:00:00 2021-03-08 00:00:00 (TEL) STLMLC STLMLC [id number] [facility] 2021-02-15 00:00:00 2021-02-15 00:00:00 Outpatient STLMLC STLMLC [id number] [facility] 2021-01-20 00:00:00 2021-01-20 00:00:00 Outpatient STLMLC STLMLC [id number] [facility] 2020-12-16 00:00:00 2020-12-16 00:00:00 Outpatient STLMLC STLMLC [id number] [facility] 2020-12-16 00:00:00 2020-12-16 00:00:00 Outpatient STLMLC STLMLC [id number] [facility] 2020-09-22 00:00:00 2020-09-22 00:00:00 Outpatient STLMLC STLMLC [id number] [facility] 2020-09-22 00:00:00 2020-09-22 00:00:00 Outpatient STLMLC STLMLC [id number] [facility] 2020-07-22 00:00:00 2020-07-22 00:00:00 Outpatient STLMLC STLMLC [id number] [facility] 2020-07-01 00:00:00 2020-07-01 00:00:00 Outpatient STLMLC STLMLC [id number] [facility] 2020-06-24 00:00:00 2020-06-24 00:00:00 Outpatient STLMLC STLMLC [id number] [facility] 2020-06-23 00:00:00 2020-06-23 00:00:00 Outpatient STLMLC STLMLC [id number] [facility] 2020-06-11 00:00:00 2020-06-11 00:00:00 Outpatient STLMLC STLMLC [id number] [facility] 2020-06-02 00:00:00 2020-06-02 00:00:00 Outpatient STLMLC STLMLC [id number] [facility] 2020-03-18 00:00:00 2020-03-18 00:00:00 Outpatient STLMLC STLMLC [id number] [facility] 2020-03-18 00:00:00 2020-03-18 00:00:00 Outpatient STLMLC STLMLC [id number] [facility] 2020-03-16 00:00:00 2020-03-16 00:00:00 Outpatient STLMLC STLMLC [id number] [facility] 2020-02-27 00:00:00 2020-02-27 00:00:00 Outpatient STLMLC STLMLC [id number] [facility] 2020-02-24 00:00:00 2020-02-24 00:00:00 Outpatient STLMLC STLMLC [id number] [facility] 2020-02-17 00:00:00 2020-02-17 00:00:00 Outpatient STLMLC STLMLC [id number] [facility] 2020-02-12 00:00:00 2020-02-12 00:00:00 Outpatient STLMLC STLMLC [id number] [facility] 2020-02-03 09:00:00 2020-02-03 09:00:[address] [facility] [id number] [facility] 2020-01-28 11:00:00 2020-01-28 11:00:00 [facility] [id number] [facility] 2020-01-20 09:00:00 2020-01-20 09:00:00 [facility] [id number] [facility] 2020-01-13 08:50:00 2020-01-13 08:50:[address] [facility] [facility] [id number] [facility] 2020-01-06 09:00:00 2020-01-06 09:00:00 [facility] [id number] [facility] 2019-12-30 09:00:00 2019-12-30 09:00:00 [facility] [id number] [facility] 2019-12-23 08:45:00 2019-12-23 08:45:[address] [facility] [facility] [id number] [facility] 2019-12-18 11:30:00 2019-12-18 11:30:00 [facility] [id number] [facility] 2019-12-16 09:00:00 2019-12-16 09:00:00 [facility] [id number] [facility] 2019-12-09 09:00:00 2019-12-09 09:00:00 [facility] [id number] [facility] 2019-12-02 09:30:00 2019-12-02 09:30:00 [facility] [id number] [facility] 2019-11-25 09:00:00 2019-11-25 09:00:00 [facility] [id number] [facility] 2019-11-18 09:00:00 2019-11-18 09:00:00 [facility] [id number] [facility] 2019-11-12 11:00:00 2019-11-12 11:00:00 [facility] [id number] [facility] 2019-11-11 10:00:00 2019-11-11 10:00:00 [facility] [id number] [facility] 2019-11-07 11:23:00 2019-11-07 11:23:00 [facility] [id number] [facility] 2019-11-04 09:00:00 2019-11-04 09:00:00 [facility] [id number] [facility] 2019-10-28 09:00:00 2019-10-28 09:00:00 [facility] [id number] [facility] 2019-10-22 13:45:00 2019-10-22 13:45:00 [facility] [id number] [facility] 2019-10-15 09:00:00 2019-10-15 09:00:00 [facility] [id number] [facility] 2019-10-07 09:00:00 2019-10-07 09:00:00 [facility] [id number] [facility] 2019-09-30 10:00:00 2019-09-30 10:00:00 [facility] [id number] [facility] 2019-09-23 08:08:00 2019-09-23 08:08:00 [facility] [id number] [facility] 2019-09-18 15:45:00 2019-09-18 15:45:00 [facility] [id number] [facility] 2019-09-18 15:45:00 2019-09-18 15:45:00 [facility] [id number] [facility] 2019-08-08 10:00:00 2019-08-08 10:00:00 [facility] [id number] [facility] 2019 16:38:00 2019 16:38:00 [facility] [id number] [facility] 2019 14:22:00 2019 14:22:00 [facility] [id number] [facility] 2019 14:00:00 2019 14:00:00 [facility] [id number] [facility] Results Test Description Test Time Test Comments Results Result Co mments Source Juan Jsaritha DowCBC W/AUTO [id number] 00:00:00* Test Item Value Reference Range Interpretation [...] ABS NUCLEATED RBCS (test cod e = 26446) 0.00 K/UL Juan J DowLIPID [id number] 00:00:00* Test Item Value Reference Range Interpretation Comme nts CHOLESTEROL (test code = 2210) 292 MG/DL TRIGLYCERIDES (test code = 2232) 135 MG/DL HDL CHOLESTEROL (test code = 2220) 63 MG/DL CALC LDL CHOL (test code = 2237) 200 MG/DL RISK RATIO LDL/HDL (test cod e = 2238) 3.17 RATIO Juan J F AustinCOMPREHENSIVE METABOLIC [id number] 00:00:00* Test Item Value Reference Range Interpretation Comme nts GLUCOSE (test code = 2217) 128 MG/DL BUN (test code = 2208) 85 MG/DL CREATININE (test code = 2214) 4.86 MG/DL eGFR (2020 CKD-EPI) (test co de = 17706) 12 ML/MIN/1.73 CALC BUN/CREAT (test code = [...] 32 U/L Juan J Gallegos AustinURINALYSIS W/REFLEX [id number] 00:00:00* Test Item Value Reference Range Interpretation [...] 3-5 /HPF EPITHELIAL CELLS (test code = 22234) 0-5 /HPF BACTERIA (test code = 1515) NONE SEEN CASTS, HYALINE (test code = 1517) TRACE Juan J DowCBC W/AUTO [id number] 00:00:00* Test Item Value Reference Range Interpretation [...] ABS NUCLEATED RBCS (test cod e = 62291) 0.00 K/UL Juan J DowLIPID [id number] 00:00:00* Test Item Value Reference Range Interpretation Comme nts CHOLESTEROL (test code = 2210) 292 MG/DL TRIGLYCERIDES (test code = 2232) 135 MG/DL HDL CHOLESTEROL (test code = 2220) 63 MG/DL CALC LDL CHOL (test code = 2237) 200 MG/DL RISK RATIO LDL/HDL (test cod e = 2238) 3.17 RATIO Juan J DowCOMPREHENSIVE METABOLIC [id number] 00:00:00* Test Item Value Reference Range Interpretation Comme nts GLUCOSE (test code = 2217) 128 MG/DL BUN (test code = 2208) 85 MG/DL CREATININE (test code = 2214) 4.86 MG/DL eGFR (2020 CKD-EPI) (test co de = 03566) 12 ML/MIN/1.73 CALC BUN/CREAT (test code = [...] 32 U/L Juan J Gallegos AustinURINALYSIS W/REFLEX [id number] 00:00:00* Test Item Value Reference Range Interpretation [...] 3-5 /HPF EPITHELIAL CELLS (test code = 51286) 0-5 /HPF BACTERIA (test code = 1515) NONE SEEN CASTS, HYALINE (test code = 1517) TRACE Juan J Gallegos AustinCBC W/AUTO [id number] 00:00:00* Test Item Value Reference Range Interpretation [...] ABS NUCLEATED RBCS (test cod e = 11837) 0.00 K/UL Juan J El AustinLIPID [id number] 00:00:00* Test Item Value Reference Range Interpretation Comme nts CHOLESTEROL (test code = 2210) 292 MG/DL TRIGLYCERIDES (test code = 2232) 135 MG/DL HDL CHOLESTEROL (test code = 2220) 63 MG/DL CALC LDL CHOL (test code = 2237) 200 MG/DL RISK RATIO LDL/HDL (test cod e = 2238) 3.17 RATIO Juan J Gallegos Victor MCOMPREHENSIVE METABOLIC [id number] 00:00:00* Test Item Value Reference Range Interpretation Comme nts GLUCOSE (test code = 2217) 128 MG/DL BUN (test code = 2208) 85 MG/DL CREATININE (test code = 2214) 4.86 MG/DL eGFR (2020 CKD-EPI) (test co de = 02623) 12 ML/MIN/1.73 CALC BUN/CREAT (test code = [...] code = 2219) 32 U/L Juan J F AustinURINALYSIS W/REFLEX [id number] 00:00:00* Test Item Value Reference Range Interpretation [...] 3-5 /HPF EPITHELIAL CELLS (test code = 58459) 0-5 /HPF BACTERIA (test code = 1515) NONE SEEN CASTS, HYALINE (test code = 1517) TRACE Juan J Gallegos AustinCBC W/AUTO [id number] 00:00:00* Test Item Value Reference Range Interpretation [...] ABS NUCLEATED RBCS (test cod e = 82589) 0.00 K/UL Juan J Gallegos AustinLIPID [id number] 00:00:00* Test Item Value Reference Range Interpretation Comme nts CHOLESTEROL (test code = 2210) 292 MG/DL TRIGLYCERIDES (test code = 2232) 135 MG/DL HDL CHOLESTEROL (test code = 2220) 63 MG/DL CALC LDL CHOL (test code = 2237) 200 MG/DL RISK RATIO LDL/HDL (test cod e = 2238) 3.17 RATIO Juan J DowCOMPREHENSIVE METABOLIC [id number] 00:00:00* Test Item Value Reference Range Interpretation Comme nts GLUCOSE (test code = 2217) 128 MG/DL BUN (test code = 2208) 85 MG/DL CREATININE (test code = 2214) 4.86 MG/DL eGFR (2020 CKD-EPI) (test co de = 91670) 12 ML/MIN/1.73 CALC BUN/CREAT (test code = [...] 32 U/L Juan J Gallegos AustinURINALYSIS W/REFLEX [id number] 00:00:00* Test Item Value Reference Range Interpretation [...] 3-5 /HPF EPITHELIAL CELLS (test code = 57489) 0-5 /HPF BACTERIA (test code = 1515) NONE SEEN CASTS, HYALINE (test code = 1517) TRACE Juan J Gallegos AustinCBC W/AUTO [id number] 00:00:00* Test Item Value Reference Range Interpretation [...] ABS NUCLEATED RBCS (test cod e = 48919) 0.00 K/UL Juan J Gallegos AustinLIPID [id number] 00:00:00* Test Item Value Reference Range Interpretation Comme nts CHOLESTEROL (test code = 2210) 292 MG/DL TRIGLYCERIDES (test code = 2232) 135 MG/DL HDL CHOLESTEROL (test code = 2220) 63 MG/DL CALC LDL CHOL (test code = 2237) 200 MG/DL RISK RATIO LDL/HDL (test cod e = 2238) 3.17 RATIO Juan J DowCOMPREHENSIVE METABOLIC [id number] 00:00:00* Test Item Value Reference Range Interpretation Comme nts GLUCOSE (test code = 2217) 128 MG/DL BUN (test code = 2208) 85 MG/DL CREATININE (test code = 2214) 4.86 MG/DL eGFR (2020 CKD-EPI) (test co de = 83818) 12 ML/MIN/1.73 CALC BUN/CREAT (test code = [...] 32 U/L Juan J Gallegos AustinURINALYSIS W/REFLEX [id number] 00:00:00* Test Item Value Reference Range Interpretation [...] 3-5 /HPF EPITHELIAL CELLS (test code = 82362) 0-5 /HPF BACTERIA (test code = 1515) NONE SEEN CASTS, HYALINE (test code = 1517) TRACE Juan J Gallegos AustinCBC W/AUTO [id number] 00:00:00* Test Item Value Reference Range Interpretation [...] ABS NUCLEATED RBCS (test cod e = 68578) 0.00 K/UL Juan J Gallegos SandovalLIPID [id number] 00:00:00* Test Item Value Reference Range Interpretation Comme nts CHOLESTEROL (test code = 2210) 292 MG/DL TRIGLYCERIDES (test code = 2232) 135 MG/DL HDL CHOLESTEROL (test code = 2220) 63 MG/DL CALC LDL CHOL (test code = 2237) 200 MG/DL RISK RATIO LDL/HDL (test cod e = 2238) 3.17 RATIO Juan J DowCOMPREHENSIVE METABOLIC [id number] 00:00:00* Test Item Value Reference Range Interpretation Comme nts GLUCOSE (test code = 2217) 128 MG/DL BUN (test code = 2208) 85 MG/DL CREATININE (test code = 2214) 4.86 MG/DL eGFR (2020 CKD-EPI) (test co de = 25133) 12 ML/MIN/1.73 CALC BUN/CREAT (test code = [...] 32 U/L Juan J Gallegos AustinURINALYSIS W/REFLEX [id number] 00:00:00* Test Item Value Reference Range Interpretation [...] 3-5 /HPF EPITHELIAL CELLS (test code = 38944) 0-5 /HPF BACTERIA (test code = 1515) NONE SEEN CASTS, HYALINE (test code = 1517) TRACE Juan J Gallegos AustinCBC W/AUTO [id number] 00:00:00* Test Item Value Reference Range Interpretation [...] ABS NUCLEATED RBCS (test cod e = 58481) 0.00 K/UL Juan J Gallegos AustinLIPID [id number] 00:00:00* Test Item Value Reference Range Interpretation Comme nts CHOLESTEROL (test code = 2210) 292 MG/DL TRIGLYCERIDES (test code = 2232) 135 MG/DL HDL CHOLESTEROL (test code = 2220) 63 MG/DL CALC LDL CHOL (test code = 2237) 200 MG/DL RISK RATIO LDL/HDL (test cod e = 2238) 3.17 RATIO Juan J DowCOMPREHENSIVE METABOLIC [id number] 00:00:00* Test Item Value Reference Range Interpretation Comme nts GLUCOSE (test code = 2217) 128 MG/DL BUN (test code = 2208) 85 MG/DL CREATININE (test code = 2214) 4.86 MG/DL eGFR (2020 CKD-EPI) (test co de = 25958) 12 ML/MIN/1.73 CALC BUN/CREAT (test code = [...] 32 U/L Juan J Gallegos AustinURINALYSIS W/REFLEX [id number] 00:00:00* Test Item Value Reference Range Interpretation [...] 3-5 /HPF EPITHELIAL CELLS (test code = 05898) 0-5 /HPF BACTERIA (test code = 1515) NONE SEEN CASTS, HYALINE (test code = 1517) TRACE Juan J Gallegos AustinCBC W/AUTO [id number] 00:00:00* Test Item Value Reference Range Interpretation [...] ABS NUCLEATED RBCS (test cod e = 95191) 0.00 K/UL Juan J Gallegos SandovalLIPID [id number] 00:00:00* Test Item Value Reference Range Interpretation Comme nts CHOLESTEROL (test code = 2210) 292 MG/DL TRIGLYCERIDES (test code = 2232) 135 MG/DL HDL CHOLESTEROL (test code = 2220) 63 MG/DL CALC LDL CHOL (test code = 2237) 200 MG/DL RISK RATIO LDL/HDL (test cod e = 2238) 3.17 RATIO Juan J DowCOMPREHENSIVE METABOLIC [id number] 00:00:00* Test Item Value Reference Range Interpretation Comme nts GLUCOSE (test code = 2217) 128 MG/DL BUN (test code = 2208) 85 MG/DL CREATININE (test code = 2214) 4.86 MG/DL eGFR (2020 CKD-EPI) (test co de = 60755) 12 ML/MIN/1.73 CALC BUN/CREAT (test code = [...] 32 U/L Juan J Gallegos AustinURINALYSIS W/REFLEX [id number] 00:00:00* Test Item Value Reference Range Interpretation [...] 3-5 /HPF EPITHELIAL CELLS (test code = 69248) 0-5 /HPF BACTERIA (test code = 1515) NONE SEEN CASTS, HYALINE (test code = 1517) TRACE Juan J Gallegos AustinCBC W/AUTO [id number] 00:00:00* Test Item Value Reference Range Interpretation [...] ABS NUCLEATED RBCS (test cod e = 55046) 0.00 K/UL Juan J Gallegos AustinLIPID [id number] 00:00:00* Test Item Value Reference Range Interpretation Comme nts CHOLESTEROL (test code = 2210) 292 MG/DL TRIGLYCERIDES (test code = 2232) 135 MG/DL HDL CHOLESTEROL (test code = 2220) 63 MG/DL CALC LDL CHOL (test code = 2237) 200 MG/DL RISK RATIO LDL/HDL (test cod e = 2238) 3.17 RATIO Juan J Gallegos Victor MCOMPREHENSIVE METABOLIC [id number] 00:00:00* Test Item Value Reference Range Interpretation Comme nts GLUCOSE (test code = 2217) 128 MG/DL BUN (test code = 2208) 85 MG/DL CREATININE (test code = 2214) 4.86 MG/DL eGFR (2020 CKD-EPI) (test co de = 66461) 12 ML/MIN/1.73 CALC BUN/CREAT (test code = [...] code = 2219) 32 U/L Juan J F AustinURINALYSIS W/REFLEX [id number] 00:00:00* Test Item Value Reference Range Interpretation [...] 3-5 /HPF EPITHELIAL CELLS (test code = 23458) 0-5 /HPF BACTERIA (test code = 1515) NONE SEEN CASTS, HYALINE (test code = 1517) TRACE Juan J F AustinCBC W/AUTO [id number] 00:00:00* Test Item Value Reference Range Interpretation [...] ABS NUCLEATED RBCS (test cod e = 45170) 0.00 K/UL Juan J DowLIPID [id number] 00:00:00* Test Item Value Reference Range Interpretation Comme nts CHOLESTEROL (test code = 2210) 292 MG/DL TRIGLYCERIDES (test code = 2232) 135 MG/DL HDL CHOLESTEROL (test code = 2220) 63 MG/DL CALC LDL CHOL (test code = 2237) 200 MG/DL RISK RATIO LDL/HDL (test cod e = 2238) 3.17 RATIO Juan J DowCOMPREHENSIVE METABOLIC [id number] 00:00:00* Test Item Value Reference Range Interpretation Comme nts GLUCOSE (test code = 2217) 128 MG/DL BUN (test code = 2208) 85 MG/DL CREATININE (test code = 2214) 4.86 MG/DL eGFR (2020 CKD-EPI) (test co de = 95417) 12 ML/MIN/1.73 CALC BUN/CREAT (test code = [...] 32 U/L Juan J Gallegos [place] W/REFLEX [id number] 00:00:00* Test Item Value Reference Range Interpretation [...] 3-5 /HPF EPITHELIAL CELLS (test code = 25519) 0-5 /HPF BACTERIA (test code = 1515) NONE SEEN CASTS, HYALINE (test code = 1517) TRACE Juan J Gallegos [facility] W/AUTO [id number] 00:00:00* Test Item Value Reference Range Interpretation [...] ABS NUCLEATED RBCS (test cod e = 60680) 0.00 K/UL Juan J DowLIPID [id number] 00:00:00* Test Item Value Reference Range Interpretation Comme nts CHOLESTEROL (test code = 2210) 292 MG/DL TRIGLYCERIDES (test code = 2232) 135 MG/DL HDL CHOLESTEROL (test code = 2220) 63 MG/DL CALC LDL CHOL (test code = 2237) 200 MG/DL RISK RATIO LDL/HDL (test cod e = 2238) 3.17 RATIO Juan J DowCOMPREHENSIVE METABOLIC [id number] 00:00:00* Test Item Value Reference Range Interpretation Comme nts GLUCOSE (test code = 2217) 128 MG/DL BUN (test code = 2208) 85 MG/DL CREATININE (test code = 2214) 4.86 MG/DL eGFR (2020 CKD-EPI) (test co de = 35533) 12 ML/MIN/1.73 CALC BUN/CREAT (test code = [...] 32 U/L Juan J Gallegos [place] W/REFLEX [id number] 00:00:00* Test Item Value Reference Range Interpretation [...] 3-5 /HPF EPITHELIAL CELLS (test code = 40079) 0-5 /HPF BACTERIA (test code = 1515) NONE SEEN CASTS, HYALINE (test code = 1517) TRACE Juan J Gallegos [facility] W/AUTO [id number] 00:00:00* Test Item Value Reference Range Interpretation [...] ABS NUCLEATED RBCS (test cod e = 49383) 0.00 K/UL Juan J DowLIPID [id number] 00:00:00* Test Item Value Reference Range Interpretation Comme nts CHOLESTEROL (test code = 2210) 292 MG/DL TRIGLYCERIDES (test code = 2232) 135 MG/DL HDL CHOLESTEROL (test code = 2220) 63 MG/DL CALC LDL CHOL (test code = 2237) 200 MG/DL RISK RATIO LDL/HDL (test cod e = 2238) 3.17 RATIO Juan J DowCOMPREHENSIVE METABOLIC [id number] 00:00:00* Test Item Value Reference Range Interpretation Comme nts GLUCOSE (test code = 2217) 128 MG/DL BUN (test code = 2208) 85 MG/DL CREATININE (test code = 2214) 4.86 MG/DL eGFR (2020 CKD-EPI) (test co de = 01429) 12 ML/MIN/1.73 CALC BUN/CREAT (test code = [...] 2219) 32 U/L Juan J DowURINALYSIS W/REFLEX [id number] 00:00:00* Test Item Value Reference Range Interpretation [...] 3-5 /HPF EPITHELIAL CELLS (test code = 83365) 0-5 /HPF BACTERIA (test code = 1515) NONE SEEN CASTS, HYALINE (test code = 1517) TRACE Juan J DowCBC W/AUTO [id number] 00:00:00* Test Item Value Reference Range Interpretation [...] ABS NUCLEATED RBCS (test cod e = 30794) 0.00 K/UL Juan J DowLIPID [id number] 00:00:00* Test Item Value Reference Range Interpretation Comme nts CHOLESTEROL (test code = 2210) 292 MG/DL TRIGLYCERIDES (test code = 2232) 135 MG/DL HDL CHOLESTEROL (test code = 2220) 63 MG/DL CALC LDL CHOL (test code = 2237) 200 MG/DL RISK RATIO LDL/HDL (test cod e = 2238) 3.17 RATIO Juan J DowCOMPREHENSIVE METABOLIC [id number] 00:00:00* Test Item Value Reference Range Interpretation Comme nts GLUCOSE (test code = 2217) 128 MG/DL BUN (test code = 2208) 85 MG/DL CREATININE (test code = 2214) 4.86 MG/DL eGFR (2020 CKD-EPI) (test co de = 69872) 12 ML/MIN/1.73 CALC BUN/CREAT (test code = [...] 32 U/L Juan J Gallegos [place] W/REFLEX [id number] 00:00:00* Test Item Value Reference Range Interpretation [...] 3-5 /HPF EPITHELIAL CELLS (test code = 81995) 0-5 /HPF BACTERIA (test code = 1515) NONE SEEN CASTS, HYALINE (test code = 1517) TRACE Juan J DowCBC W/AUTO [id number] 00:00:00* Test Item Value Reference Range Interpretation [...] ABS NUCLEATED RBCS (test cod e = 19379) 0.00 K/UL Juan J DowLIPID [id number] 00:00:00* Test Item Value Reference Range Interpretation Comme nts CHOLESTEROL (test code = 2210) 292 MG/DL TRIGLYCERIDES (test code = 2232) 135 MG/DL HDL CHOLESTEROL (test code = 2220) 63 MG/DL CALC LDL CHOL (test code = 2237) 200 MG/DL RISK RATIO LDL/HDL (test cod e = 2238) 3.17 RATIO Juan J DowCOMPREHENSIVE METABOLIC [id number] 00:00:00* Test Item Value Reference Range Interpretation Comme nts GLUCOSE (test code = 2217) 128 MG/DL BUN (test code = 2208) 85 MG/DL CREATININE (test code = 2214) 4.86 MG/DL eGFR (2020 CKD-EPI) (test co de = 89630) 12 ML/MIN/1.73 CALC BUN/CREAT (test code = [...] 2219) 32 U/L Juan J DowURINALYSIS W/REFLEX [id number] 00:00:00* Test Item Value Reference Range Interpretation [...] 3-5 /HPF EPITHELIAL CELLS (test code = 82822) 0-5 /HPF BACTERIA (test code = 1515) NONE SEEN CASTS, HYALINE (test code = 1517) TRACE Juan J DowCBC W/AUTO [id number] 00:00:00* Test Item Value Reference Range Interpretation [...] ABS NUCLEATED RBCS (test cod e = 28830) 0.00 K/UL Juan J DowLIPID [id number] 00:00:00* Test Item Value Reference Range Interpretation Comme nts CHOLESTEROL (test code = 2210) 292 MG/DL TRIGLYCERIDES (test code = 2232) 135 MG/DL HDL CHOLESTEROL (test code = 2220) 63 MG/DL CALC LDL CHOL (test code = 2237) 200 MG/DL RISK RATIO LDL/HDL (test cod e = 2238) 3.17 RATIO Juan J DowCOMPREHENSIVE METABOLIC [id number] 00:00:00* Test Item Value Reference Range Interpretation Comme nts GLUCOSE (test code = 2217) 128 MG/DL BUN (test code = 2208) 85 MG/DL CREATININE (test code = 2214) 4.86 MG/DL eGFR (2020 CKD-EPI) (test co de = 63986) 12 ML/MIN/1.73 CALC BUN/CREAT (test code = [...] 32 U/L Juan J Gallegos [place] W/REFLEX [id number] 00:00:00* Test Item Value Reference Range Interpretation [...] 3-5 /HPF EPITHELIAL CELLS (test code = 12813) 0-5 /HPF BACTERIA (test code = 1515) NONE SEEN CASTS, HYALINE (test code = 1517) TRACE Juan J F AustinCBC W/AUTO [id number] 00:00:00* Test Item Value Reference Range Interpretation [...] ABS NUCLEATED RBCS (test cod e = 46594) 0.00 K/UL Juan J DowLIPID [id number] 00:00:00* Test Item Value Reference Range Interpretation Comme nts CHOLESTEROL (test code = 2210) 292 MG/DL TRIGLYCERIDES (test code = 2232) 135 MG/DL HDL CHOLESTEROL (test code = 2220) 63 MG/DL CALC LDL CHOL (test code = 2237) 200 MG/DL RISK RATIO LDL/HDL (test cod e = 2238) 3.17 RATIO Juan J DowCOMPREHENSIVE METABOLIC [id number] 00:00:00* Test Item Value Reference Range Interpretation Comme nts GLUCOSE (test code = 2217) 128 MG/DL BUN (test code = 2208) 85 MG/DL CREATININE (test code = 2214) 4.86 MG/DL eGFR (2020 CKD-EPI) (test co de = 29886) 12 ML/MIN/1.73 CALC BUN/CREAT (test code = [...] 32 U/L Juan J Gallegos [place]UR[place] W/REFLEX [id number] 00:00:00* Test Item Value Reference Range Interpretation [...] 3-5 /HPF EPITHELIAL CELLS (test code = 40468) 0-5 /HPF BACTERIA (test code = 1515) NONE SEEN CASTS, HYALINE (test code = 1517) TRACE Juan J Gallegos AustinCBC W/AUTO [id number] 00:00:00* Test Item Value Reference Range Interpretation [...] ABS NUCLEATED RBCS (test cod e = 85899) 0.00 K/UL Juan J F AustinLIPID [id number] 00:00:00* Test Item Value Reference Range Interpretation Comme nts CHOLESTEROL (test code = 2210) 292 MG/DL TRIGLYCERIDES (test code = 2232) 135 MG/DL HDL CHOLESTEROL (test code = 2220) 63 MG/DL CALC LDL CHOL (test code = 2237) 200 MG/DL RISK RATIO LDL/HDL (test cod e = 2238) 3.17 RATIO Juan J DowCOMPREHENSIVE METABOLIC [id number] 00:00:00* Test Item Value Reference Range Interpretation Comme nts GLUCOSE (test code = 2217) 128 MG/DL BUN (test code = 2208) 85 MG/DL CREATININE (test code = 2214) 4.86 MG/DL eGFR (2020 CKD-EPI) (test co de = 24868) 12 ML/MIN/1.73 CALC BUN/CREAT (test code = [...] 32 U/L Juan J Gallegos [place]UR[place] W/REFLEX [id number] 00:00:00* Test Item Value Reference Range Interpretation [...] 3-5 /HPF EPITHELIAL CELLS (test code = 44437) 0-5 /HPF BACTERIA (test code = 1515) NONE SEEN CASTS, HYALINE (test code = 1517) TRACE Juan J Gallegos AustinCBC W/AUTO [id number] 00:00:00* Test Item Value Reference Range Interpretation [...] ABS NUCLEATED RBCS (test cod e = 82071) 0.00 K/UL Juan J Gallegos AustinLIPID [id number] 00:00:00* Test Item Value Reference Range Interpretation Comme nts CHOLESTEROL (test code = 2210) 292 MG/DL TRIGLYCERIDES (test code = 2232) 135 MG/DL HDL CHOLESTEROL (test code = 2220) 63 MG/DL CALC LDL CHOL (test code = 2237) 200 MG/DL RISK RATIO LDL/HDL (test cod e = 2238) 3.17 RATIO Juan J DowCOMPREHENSIVE METABOLIC [id number] 00:00:00* Test Item Value Reference Range Interpretation Comme nts GLUCOSE (test code = 2217) 128 MG/DL BUN (test code = 2208) 85 MG/DL CREATININE (test code = 2214) 4.86 MG/DL eGFR (2020 CKD-EPI) (test co de = 52339) 12 ML/MIN/1.73 CALC BUN/CREAT (test code = [...] code = 2219) 32 U/L Juan J DowURIC [id number] 00:00:00* Test Item Value Reference Range Interpretation Comme nts URIC ACID (test code = 2233) 7.9 MG/DL Juan J DowMICROSCOPIC URINALYSIS, REFLEX [id number] 00:00:00* Test Item Value Reference Range Interpretation Comme nts WHITE BLOOD CELLS (test code = 1513) 0-5 /HPF RED BLOOD CELLS (test code = 1514) 6-10 /HPF EPITHELIAL CELLS (test code = 15317) 0-5 /HPF BACTERIA (test code = 1515) NONE SEEN CASTS, HYALINE (test code = 1517) TRACE Juan J DowCBC W/AUTO [id number] 00:00:00* Test Item Value Reference Range Interpretation [...] ABS NUCLEATED RBCS (test cod e = 63161) 0.00 K/UL COMMENTS (test code = 1016) (NOTE) Juan J Gallegos AustinLIPID [id number] 00:00:00* Test Item Value Reference Range Interpretation Comme nts CHOLESTEROL (test code = 2210) 243 MG/DL TRIGLYCERIDES (test code = 2232) 150 MG/DL HDL CHOLESTEROL (test code = 2220) 55 MG/DL CALC LDL CHOL (test code = 2237) 160 MG/DL RISK RATIO LDL/HDL (test cod e = 2238) 2.91 RATIO Juan J DowCOMPREHENSIVE METABOLIC [id number] 00:00:00* Test Item Value Reference Range Interpretation Comme nts GLUCOSE (test code = 2217) 94 MG/DL BUN (test code = 2208) 54 MG/DL CREATININE (test code = 2214) 3.54 MG/DL eGFR (2020 CKD-EPI) (test co de = 96433) 17 ML/MIN/1.73 CALC BUN/CREAT (test code = [...] = 2219) 17 U/L Juan J DowPSA, [id number] 00:00:00* Test Item Value Reference Range Interpretation Comme candace PSA, TOTAL (test code = 2606) 7.76 NG/ML Juan J DowURIC [id number] 00:00:00* Test Item Value Reference Range Interpretation Comme nts URIC ACID (test code = 2233) 7.9 MG/DL Juan J DowMICROSCOPIC URINALYSIS, REFLEX [id number] 00:00:00* Test Item Value Reference Range Interpretation Comme nts WHITE BLOOD CELLS (test code = 1513) 0-5 /HPF RED BLOOD CELLS (test code = 1514) 6-10 /HPF EPITHELIAL CELLS (test code = 20348) 0-5 /HPF BACTERIA (test code = 1515) NONE SEEN CASTS, HYALINE (test code = 1517) TRACE Juan J DowCBC W/AUTO [id number] 00:00:00* Test Item Value Reference Range Interpretation [...] ABS NUCLEATED RBCS (test cod e = 82242) 0.00 K/UL COMMENTS (test code = 1016) (NOTE) Juan J DowLIPID [id number] 00:00:00* Test Item Value Reference Range Interpretation Comme nts CHOLESTEROL (test code = 2210) 243 MG/DL TRIGLYCERIDES (test code = 2232) 150 MG/DL HDL CHOLESTEROL (test code = 2220) 55 MG/DL CALC LDL CHOL (test code = 2237) 160 MG/DL RISK RATIO LDL/HDL (test cod e = 2238) 2.91 RATIO Juan J DowCOMPREHENSIVE METABOLIC [id number] 00:00:00* Test Item Value Reference Range Interpretation Comme nts GLUCOSE (test code = 2217) 94 MG/DL BUN (test code = 2208) 54 MG/DL CREATININE (test code = 2214) 3.54 MG/DL eGFR (2020 CKD-EPI) (test co de = 25963) 17 ML/MIN/1.73 CALC BUN/CREAT (test code = [...] = 2219) 17 U/L Juan J DowPSA, [id number] 00:00:00* Test Item Value Reference Range Interpretation Comme nts PSA, TOTAL (test code = 2606) 7.76 NG/ML Juan J DowURIC [id number] 00:00:00* Test Item Value Reference Range Interpretation Comme nts URIC ACID (test code = 2233) 7.9 MG/DL Juan J DowMICROSCOPIC URINALYSIS, REFLEX [id number] 00:00:00* Test Item Value Reference Range Interpretation Comme nts WHITE BLOOD CELLS (test code = 1513) 0-5 /HPF RED BLOOD CELLS (test code = 1514) 6-10 /HPF EPITHELIAL CELLS (test code = 16619) 0-5 /HPF BACTERIA (test code = 1515) NONE SEEN CASTS, HYALINE (test code = 1517) TRACE Juan J DowCBC W/AUTO [id number] 00:00:00* Test Item Value Reference Range Interpretation [...] ABS NUCLEATED RBCS (test cod e = 19456) 0.00 K/UL COMMENTS (test code = 1016) (NOTE) Juan J DowLIPID [id number] 00:00:00* Test Item Value Reference Range Interpretation Comme nts CHOLESTEROL (test code = 2210) 243 MG/DL TRIGLYCERIDES (test code = 2232) 150 MG/DL HDL CHOLESTEROL (test code = 2220) 55 MG/DL CALC LDL CHOL (test code = 2237) 160 MG/DL RISK RATIO LDL/HDL (test cod e = 2238) 2.91 RATIO Juan J DowCOMPREHENSIVE METABOLIC [id number] 00:00:00* Test Item Value Reference Range Interpretation Comme nts GLUCOSE (test code = 2217) 94 MG/DL BUN (test code = 2208) 54 MG/DL CREATININE (test code = 2214) 3.54 MG/DL eGFR (2020 CKD-EPI) (test co de = 19016) 17 ML/MIN/1.73 CALC BUN/CREAT (test code = [...] = 2219) 17 U/L Juan J DowPSA, [id number] 00:00:00* Test Item Value Reference Range Interpretation Comme nts PSA, TOTAL (test code = 2606) 7.76 NG/ML Juan J DowURIC [id number] 00:00:00* Test Item Value Reference Range Interpretation Comme nts URIC ACID (test code = 2233) 7.9 MG/DL Juan J DowMICROSCOPIC URINALYSIS, REFLEX [id number] 00:00:00* Test Item Value Reference Range Interpretation Comme nts WHITE BLOOD CELLS (test code = 1513) 0-5 /HPF RED BLOOD CELLS (test code = 1514) 6-10 /HPF EPITHELIAL CELLS (test code = 93237) 0-5 /HPF BACTERIA (test code = 1515) NONE SEEN CASTS, HYALINE (test code = 1517) TRACE Juan J DowCBC W/AUTO [id number] 00:00:00* Test Item Value Reference Range Interpretation [...] ABS NUCLEATED RBCS (test cod e = 68262) 0.00 K/UL COMMENTS (test code = 1016) (NOTE) Juan J DowLIPID [id number] 00:00:00* Test Item Value Reference Range Interpretation Comme nts CHOLESTEROL (test code = 2210) 243 MG/DL TRIGLYCERIDES (test code = 2232) 150 MG/DL HDL CHOLESTEROL (test code = 2220) 55 MG/DL CALC LDL CHOL (test code = 2237) 160 MG/DL RISK RATIO LDL/HDL (test cod e = 2238) 2.91 RATIO Juan J Gallegos Victor MCOMPREHENSIVE METABOLIC [id number] 00:00:00* Test Item Value Reference Range Interpretation Comme nts GLUCOSE (test code = 2217) 94 MG/DL BUN (test code = 2208) 54 MG/DL CREATININE (test code = 2214) 3.54 MG/DL eGFR (2020 CKD-EPI) (test co de = 50558) 17 ML/MIN/1.73 CALC BUN/CREAT (test code = [...] 17 U/L Juan J Gallegos Victor MPSA, [id number] 00:00:00* Test Item Value Reference Range Interpretation Comme nts PSA, TOTAL (test code = 2606) 7.76 NG/ML Juan J Gallegos Victor MURIC [id number] 00:00:00* Test Item Value Reference Range Interpretation Comme nts URIC ACID (test code = 2233) 7.9 MG/DL Juan J Gallegos Victor MMICROSCOPIC URINALYSIS, REFLEX [id number] 00:00:00* Test Item Value Reference Range Interpretation Comme nts WHITE BLOOD CELLS (test code = 1513) 0-5 /HPF RED BLOOD CELLS (test code = 1514) 6-10 /HPF EPITHELIAL CELLS (test code = 06433) 0-5 /HPF BACTERIA (test code = 1515) NONE SEEN CASTS, HYALINE (test code = 1517) TRACE Juan J DowCBC W/AUTO [id number] 00:00:00* Test Item Value Reference Range Interpretation [...] ABS NUCLEATED RBCS (test cod e = 63284) 0.00 K/UL COMMENTS (test code = 1016) (NOTE) JuanJ DowLIPID [id number] 00:00:00* Test Item Value Reference Range Interpretation Comme nts CHOLESTEROL (test code = 2210) 243 MG/DL TRIGLYCERIDES (test code = 2232) 150 MG/DL HDL CHOLESTEROL (test code = 2220) 55 MG/DL CALC LDL CHOL (test code = 2237) 160 MG/DL RISK RATIO LDL/HDL (test cod e = 2238) 2.91 RATIO Juan J DowCOMPREHENSIVE METABOLIC [id number] 00:00:00* Test Item Value Reference Range Interpretation Comme nts GLUCOSE (test code = 2217) 94 MG/DL BUN (test code = 2208) 54 MG/DL CREATININE (test code = 2214) 3.54 MG/DL eGFR (2020 CKD-EPI) (test co de = 02233) 17 ML/MIN/1.73 CALC BUN/CREAT (test code = [...] = 2219) 17 U/L Juan J DowPSA, [id number] 00:00:00* Test Item Value Reference Range Interpretation Comme nts PSA, TOTAL (test code = 2606) 7.76 NG/ML Juan J DowURIC [id number] 00:00:00* Test Item Value Reference Range Interpretation Comme nts URIC ACID (test code = 2233) 7.9 MG/DL Juan J DowMICROSCOPIC URINALYSIS, REFLEX [id number] 00:00:00* Test Item Value Reference Range Interpretation Comme nts WHITE BLOOD CELLS (test code = 1513) 0-5 /HPF RED BLOOD CELLS (test code = 1514) 6-10 /HPF EPITHELIAL CELLS (test code = 41924) 0-5 /HPF BACTERIA (test code = 1515) NONE SEEN CASTS, HYALINE (test code = 1517) TRACE Juan J DowCBC W/AUTO [id number] 00:00:00* Test Item Value Reference Range Interpretation [...] ABS NUCLEATED RBCS (test cod e = 19014) 0.00 K/UL COMMENTS (test code = 1016) (NOTE) Juan J Gallegos AustinLIPID [id number] 00:00:00* Test Item Value Reference Range Interpretation Comme nts CHOLESTEROL (test code = 2210) 243 MG/DL TRIGLYCERIDES (test code = 2232) 150 MG/DL HDL CHOLESTEROL (test code = 2220) 55 MG/DL CALC LDL CHOL (test code = 2237) 160 MG/DL RISK RATIO LDL/HDL (test cod e = 2238) 2.91 RATIO Juan J DowCOMPREHENSIVE METABOLIC [id number] 00:00:00* Test Item Value Reference Range Interpretation Comme nts GLUCOSE (test code = 2217) 94 MG/DL BUN (test code = 2208) 54 MG/DL CREATININE (test code = 2214) 3.54 MG/DL eGFR (2020 CKD-EPI) (test co de = 93806) 17 ML/MIN/1.73 CALC BUN/CREAT (test code = [...] 17 U/L Juan J El Victor MPSA, [id number] 00:00:00* Test Item Value Reference Range Interpretation Comme nts PSA, TOTAL (test code = 2606) 7.76 NG/ML Juan J Gallegos Victor MURIC [id number] 00:00:00* Test Item Value Reference Range Interpretation Comme nts URIC ACID (test code = 2233) 7.9 MG/DL Juan J El Victor MMICROSCOPIC URINALYSIS, REFLEX [id number] 00:00:00* Test Item Value Reference Range Interpretation Comme nts WHITE BLOOD CELLS (test code = 1513) 0-5 /HPF RED BLOOD CELLS (test code = 1514) 6-10 /HPF EPITHELIAL CELLS (test code = 38995) 0-5 /HPF BACTERIA (test code = 1515) NONE SEEN CASTS, HYALINE (test code = 1517) TRACE Juan J El Victor MCBC W/AUTO [id number] 00:00:00* Test Item Value Reference Range Interpretation [...] ABS NUCLEATED RBCS (test cod e = 00781) 0.00 K/UL COMMENTS (test code = 1016) (NOTE) Juan J Galleogs AustinLIPID [id number] 00:00:00* Test Item Value Reference Range Interpretation Comme nts CHOLESTEROL (test code = 2210) 243 MG/DL TRIGLYCERIDES (test code = 2232) 150 MG/DL HDL CHOLESTEROL (test code = 2220) 55 MG/DL CALC LDL CHOL (test code = 2237) 160 MG/DL RISK RATIO LDL/HDL (test cod e = 2238) 2.91 RATIO Juan J Gallegos Victor MCOMPREHENSIVE METABOLIC [id number] 00:00:00* Test Item Value Reference Range Interpretation Comme nts GLUCOSE (test code = 2217) 94 MG/DL BUN (test code = 2208) 54 MG/DL CREATININE (test code = 2214) 3.54 MG/DL eGFR (2020 CKD-EPI) (test co de = 35341) 17 ML/MIN/1.73 CALC BUN/CREAT (test code = [...] = 2219) 17 U/L Juan J DowPSA, [id number] 00:00:00* Test Item Value Reference Range Interpretation Comme nts PSA, TOTAL (test code = 2606) 7.76 NG/ML Juan J DowURIC [id number] 00:00:00* Test Item Value Reference Range Interpretation Comme nts URIC ACID (test code = 2233) 7.9 MG/DL Juan J DowMICROSCOPIC URINALYSIS, REFLEX [id number] 00:00:00* Test Item Value Reference Range Interpretation Comme nts WHITE BLOOD CELLS (test code = 1513) 0-5 /HPF RED BLOOD CELLS (test code = 1514) 6-10 /HPF EPITHELIAL CELLS (test code = 80931) 0-5 /HPF BACTERIA (test code = 1515) NONE SEEN CASTS, HYALINE (test code = 1517) TRACE Juan J DowCBC W/AUTO [id number] 00:00:00* Test Item Value Reference Range Interpretation [...] ABS NUCLEATED RBCS (test cod e = 26223) 0.00 K/UL COMMENTS (test code = 1016) (NOTE) Juan J Gallegos AustinLIPID [id number] 00:00:00* Test Item Value Reference Range Interpretation Comme nts CHOLESTEROL (test code = 2210) 243 MG/DL TRIGLYCERIDES (test code = 2232) 150 MG/DL HDL CHOLESTEROL (test code = 2220) 55 MG/DL CALC LDL CHOL (test code = 2237) 160 MG/DL RISK RATIO LDL/HDL (test cod e = 2238) 2.91 RATIO Juan J DowCOMPREHENSIVE METABOLIC [id number] 00:00:00* Test Item Value Reference Range Interpretation Comme nts GLUCOSE (test code = 2217) 94 MG/DL BUN (test code = 2208) 54 MG/DL CREATININE (test code = 2214) 3.54 MG/DL eGFR (2020 CKD-EPI) (test co de = 33275) 17 ML/MIN/1.73 CALC BUN/CREAT (test code = [...] = 2219) 17 U/L Juan J DowPSA, [id number] 00:00:00* Test Item Value Reference Range Interpretation Comme nts PSA, TOTAL (test code = 2606) 7.76 NG/ML Juan J Gallegos AustinURIC [id number] 00:00:00* Test Item Value Reference Range Interpretation Comme nts URIC ACID (test code = 2233) 7.9 MG/DL Juan J DowMICROSCOPIC URINALYSIS, REFLEX [id number] 00:00:00* Test Item Value Reference Range Interpretation Comme nts WHITE BLOOD CELLS (test code = 1513) 0-5 /HPF RED BLOOD CELLS (test code = 1514) 6-10 /HPF EPITHELIAL CELLS (test code = 15984) 0-5 /HPF BACTERIA (test code = 1515) NONE SEEN CASTS, HYALINE (test code = 1517) TRACE Juan J DowCBC W/AUTO [id number] 00:00:00* Test Item Value Reference Range Interpretation [...] ABS NUCLEATED RBCS (test cod e = 79573) 0.00 K/UL COMMENTS (test code = 1016) (NOTE) Juan J Gallegos AustinLIPID [id number] 00:00:00* Test Item Value Reference Range Interpretation Comme nts CHOLESTEROL (test code = 2210) 243 MG/DL TRIGLYCERIDES (test code = 2232) 150 MG/DL HDL CHOLESTEROL (test code = 2220) 55 MG/DL CALC LDL CHOL (test code = 2237) 160 MG/DL RISK RATIO LDL/HDL (test cod e = 2238) 2.91 RATIO Juan J DowCOMPREHENSIVE METABOLIC [id number] 00:00:00* Test Item Value Reference Range Interpretation Comme nts GLUCOSE (test code = 2217) 94 MG/DL BUN (test code = 2208) 54 MG/DL CREATININE (test code = 2214) 3.54 MG/DL eGFR (2020 CKD-EPI) (test co de = 16008) 17 ML/MIN/1.73 CALC BUN/CREAT (test code = [...] = 2219) 17 U/L Juan J DowPSA, [id number] 00:00:00* Test Item Value Reference Range Interpretation Comme nts PSA, TOTAL (test code = 2606) 7.76 NG/ML Juan J DowURIC [id number] 00:00:00* Test Item Value Reference Range Interpretation Comme nts URIC ACID (test code = 2233) 7.9 MG/DL Juan J DowMICROSCOPIC URINALYSIS, REFLEX [id number] 00:00:00* Test Item Value Reference Range Interpretation Comme nts WHITE BLOOD CELLS (test code = 1513) 0-5 /HPF RED BLOOD CELLS (test code = 1514) 6-10 /HPF EPITHELIAL CELLS (test code = 27565) 0-5 /HPF BACTERIA (test code = 1515) NONE SEEN CASTS, HYALINE (test code = 1517) TRACE Juan J DowCBC W/AUTO [id number] 00:00:00* Test Item Value Reference Range Interpretation [...] ABS NUCLEATED RBCS (test cod e = 63516) 0.00 K/UL COMMENTS (test code = 1016) (NOTE) Juan J DowLIPID [id number] 00:00:00* Test Item Value Reference Range Interpretation Comme nts CHOLESTEROL (test code = 2210) 243 MG/DL TRIGLYCERIDES (test code = 2232) 150 MG/DL HDL CHOLESTEROL (test code = 2220) 55 MG/DL CALC LDL CHOL (test code = 2237) 160 MG/DL RISK RATIO LDL/HDL (test cod e = 2238) 2.91 RATIO Juan J DowCOMPREHENSIVE METABOLIC [id number] 00:00:00* Test Item Value Reference Range Interpretation Comme nts GLUCOSE (test code = 2217) 94 MG/DL BUN (test code = 2208) 54 MG/DL CREATININE (test code = 2214) 3.54 MG/DL eGFR (2020 CKD-EPI) (test co de = 87428) 17 ML/MIN/1.73 CALC BUN/CREAT (test code = [...] = 2219) 17 U/L Juan J DowPSA, [id number] 00:00:00* Test Item Value Reference Range Interpretation Comme nts PSA, TOTAL (test code = 2606) 7.76 NG/ML Juan J DowURIC [id number] 00:00:00* Test Item Value Reference Range Interpretation Comme nts URIC ACID (test code = 2233) 7.9 MG/DL Juan J DowMICROSCOPIC URINALYSIS, REFLEX [id number] 00:00:00* Test Item Value Reference Range Interpretation Comme nts WHITE BLOOD CELLS (test code = 1513) 0-5 /HPF RED BLOOD CELLS (test code = 1514) 6-10 /HPF EPITHELIAL CELLS (test code = 92258) 0-5 /HPF BACTERIA (test code = 1515) NONE SEEN CASTS, HYALINE (test code = 1517) TRACE Juan J DowCBC W/AUTO [id number] 00:00:00* Test Item Value Reference Range Interpretation [...] ABS NUCLEATED RBCS (test cod e = 30948) 0.00 K/UL COMMENTS (test code = 1016) (NOTE) Juan J DowLIPID [id number] 00:00:00* Test Item Value Reference Range Interpretation Comme nts CHOLESTEROL (test code = 2210) 243 MG/DL TRIGLYCERIDES (test code = 2232) 150 MG/DL HDL CHOLESTEROL (test code = 2220) 55 MG/DL CALC LDL CHOL (test code = 2237) 160 MG/DL RISK RATIO LDL/HDL (test cod e = 2238) 2.91 RATIO Juan J DowCOMPREHENSIVE METABOLIC [id number] 00:00:00* Test Item Value Reference Range Interpretation Comme nts GLUCOSE (test code = 2217) 94 MG/DL BUN (test code = 2208) 54 MG/DL CREATININE (test code = 2214) 3.54 MG/DL eGFR (2020 CKD-EPI) (test co de = 27463) 17 ML/MIN/1.73 CALC BUN/CREAT (test code = [...] = 2219) 17 U/L Juan J DowPSA, [id number] 00:00:00* Test Item Value Reference Range Interpretation Comme nts PSA, TOTAL (test code = 2606) 7.76 NG/ML Juan J DowURIC [id number] 00:00:00* Test Item Value Reference Range Interpretation Comme nts URIC ACID (test code = 2233) 7.9 MG/DL Juan J DowMICROSCOPIC URINALYSIS, REFLEX [id number] 00:00:00* Test Item Value Reference Range Interpretation Comme nts WHITE BLOOD CELLS (test code = 1513) 0-5 /HPF RED BLOOD CELLS (test code = 1514) 6-10 /HPF EPITHELIAL CELLS (test code = 81541) 0-5 /HPF BACTERIA (test code = 1515) NONE SEEN CASTS, HYALINE (test code = 1517) TRACE Juan J DowCBC W/AUTO [id number] 00:00:00* Test Item Value Reference Range Interpretation [...] ABS NUCLEATED RBCS (test cod e = 88847) 0.00 K/UL COMMENTS (test code = 1016) (NOTE) Juan J DowLIPID [id number] 00:00:00* Test Item Value Reference Range Interpretation Comme nts CHOLESTEROL (test code = 2210) 243 MG/DL TRIGLYCERIDES (test code = 2232) 150 MG/DL HDL CHOLESTEROL (test code = 2220) 55 MG/DL CALC LDL CHOL (test code = 2237) 160 MG/DL RISK RATIO LDL/HDL (test cod e = 2238) 2.91 RATIO Juan J DowCOMPREHENSIVE METABOLIC [id number] 00:00:00* Test Item Value Reference Range Interpretation Comme nts GLUCOSE (test code = 2217) 94 MG/DL BUN (test code = 2208) 54 MG/DL CREATININE (test code = 2214) 3.54 MG/DL eGFR (2020 CKD-EPI) (test co de = 04225) 17 ML/MIN/1.73 CALC BUN/CREAT (test code = [...] 17 U/L Juan J Gallegos Victor MPSA, [id number] 00:00:00* Test Item Value Reference Range Interpretation Comme nts PSA, TOTAL (test code = 2606) 7.76 NG/ML Juan J Gallegos Victor MURIC [id number] 00:00:00* Test Item Value Reference Range Interpretation Comme nts URIC ACID (test code = 2233) 7.9 MG/DL Juan J Gallegos Victor MMICROSCOPIC URINALYSIS, REFLEX [id number] 00:00:00* Test Item Value Reference Range Interpretation Comme nts WHITE BLOOD CELLS (test code = 1513) 0-5 /HPF RED BLOOD CELLS (test code = 1514) 6-10 /HPF EPITHELIAL CELLS (test code = 33335) 0-5 /HPF BACTERIA (test code = 1515) NONE SEEN CASTS, HYALINE (test code = 1517) TRACE Juan J DowCBC W/AUTO [id number] 00:00:00* Test Item Value Reference Range Interpretation [...] ABS NUCLEATED RBCS (test cod e = 07264) 0.00 K/UL COMMENTS (test code = 1016) (NOTE) Juan J DowLIPID [id number] 00:00:00* Test Item Value Reference Range Interpretation Comme nts CHOLESTEROL (test code = 2210) 243 MG/DL TRIGLYCERIDES (test code = 2232) 150 MG/DL HDL CHOLESTEROL (test code = 2220) 55 MG/DL CALC LDL CHOL (test code = 2237) 160 MG/DL RISK RATIO LDL/HDL (test cod e = 2238) 2.91 RATIO Juan J DowCOMPREHENSIVE METABOLIC [id number] 00:00:00* Test Item Value Reference Range Interpretation Comme nts GLUCOSE (test code = 2217) 94 MG/DL BUN (test code = 2208) 54 MG/DL CREATININE (test code = 2214) 3.54 MG/DL eGFR (2020 CKD-EPI) (test co de = 92962) 17 ML/MIN/1.73 CALC BUN/CREAT (test code = 2235) 15 RATIO SODIUM (test code = 223) 140 MEQ/L POTASSIUM (test code = 2228) [...] 17 U/L Juan J El Victor MPSA, [id number] 00:00:00* Test Item Value Reference Range Interpretation Comme nts PSA, TOTAL (test code = 2606) 7.76 NG/ML Juan J El Victor MURIC [id number] 00:00:00* Test Item Value Reference Range Interpretation Comme nts URIC ACID (test code = 2233) 7.9 MG/DL Juan J DowMICROSCOPIC URINALYSIS, REFLEX [id number] 00:00:00* Test Item Value Reference Range Interpretation Comme nts WHITE BLOOD CELLS (test code = 1513) 0-5 /HPF RED BLOOD CELLS (test code = 1514) 6-10 /HPF EPITHELIAL CELLS (test code = 39067) 0-5 /HPF BACTERIA (test code = 1515) NONE SEEN CASTS, HYALINE (test code = 1517) TRACE Juan J El Victor MCBC W/AUTO [id number] 00:00:00* Test Item Value Reference Range Interpretation [...] ABS NUCLEATED RBCS (test cod e = 41007) 0.00 K/UL COMMENTS (test code = 1016) (NOTE) Juan J Gallegos AustinLIPID [id number] 00:00:00* Test Item Value Reference Range Interpretation Comme nts CHOLESTEROL (test code = 2210) 243 MG/DL TRIGLYCERIDES (test code = 2232) 150 MG/DL HDL CHOLESTEROL (test code = 2220) 55 MG/DL CALC LDL CHOL (test code = 2237) 160 MG/DL RISK RATIO LDL/HDL (test cod e = 2238) 2.91 RATIO Juan J DowCOMPREHENSIVE METABOLIC [id number] 00:00:00* Test Item Value Reference Range Interpretation Comme nts GLUCOSE (test code = 2217) 94 MG/DL BUN (test code = 2208) 54 MG/DL CREATININE (test code = 2214) 3.54 MG/DL eGFR (2020 CKD-EPI) (test co de = 60158) 17 ML/MIN/1.73 CALC BUN/CREAT (test code = [...] = 2219) 17 U/L Juan J DowPSA, [id number] 00:00:00* Test Item Value Reference Range Interpretation Comme nts PSA, TOTAL (test code = 2606) 7.76 NG/ML Juan J DowURIC [id number] 00:00:00* Test Item Value Reference Range Interpretation Comme nts URIC ACID (test code = 2233) 7.9 MG/DL Juan J DowMICROSCOPIC URINALYSIS, REFLEX [id number] 00:00:00* Test Item Value Reference Range Interpretation Comme nts WHITE BLOOD CELLS (test code = 1513) 0-5 /HPF RED BLOOD CELLS (test code = 1514) 6-10 /HPF EPITHELIAL CELLS (test code = 94629) 0-5 /HPF BACTERIA (test code = 1515) NONE SEEN CASTS, HYALINE (test code = 1517) TRACE Juan J Gallegos Victor MCBC W/AUTO [id number] 00:00:00* Test Item Value Reference Range Interpretation [...] ABS NUCLEATED RBCS (test cod e = 40827) 0.00 K/UL COMMENTS (test code = 1016) (NOTE) Juan J El AustinLIPID [id number] 00:00:00* Test Item Value Reference Range Interpretation Comme nts CHOLESTEROL (test code = 2210) 243 MG/DL TRIGLYCERIDES (test code = 2232) 150 MG/DL HDL CHOLESTEROL (test code = 2220) 55 MG/DL CALC LDL CHOL (test code = 2237) 160 MG/DL RISK RATIO LDL/HDL (test cod e = 2238) 2.91 RATIO Juan J DowCOMPREHENSIVE METABOLIC [id number] 00:00:00* Test Item Value Reference Range Interpretation Comme nts GLUCOSE (test code = 2217) 94 MG/DL BUN (test code = 2208) 54 MG/DL CREATININE (test code = 2214) 3.54 MG/DL eGFR (2020 CKD-EPI) (test co de = 97470) 17 ML/MIN/1.73 CALC BUN/CREAT (test code = [...] = 2219) 17 U/L Juan J DowPSA, [id number] 00:00:00* Test Item Value Reference Range Interpretation Comme nts PSA, TOTAL (test code = 2606) 7.76 NG/ML Juan J DowURIC [id number] 00:00:00* Test Item Value Reference Range Interpretation Comme nts URIC ACID (test code = 2233) 7.9 MG/DL Juan J DowMICROSCOPIC URINALYSIS, REFLEX [id number] 00:00:00* Test Item Value Reference Range Interpretation Comme nts WHITE BLOOD CELLS (test code = 1513) 0-5 /HPF RED BLOOD CELLS (test code = 1514) 6-10 /HPF EPITHELIAL CELLS (test code = 08812) 0-5 /HPF BACTERIA (test code = 1515) NONE SEEN CASTS, HYALINE (test code = 1517) TRACE Juan J DowCBC W/AUTO [id number] 00:00:00* Test Item Value Reference Range Interpretation [...] ABS NUCLEATED RBCS (test cod e = 37086) 0.00 K/UL COMMENTS (test code = 1016) (NOTE) Juan J Gallegos AustinLIPID [id number] 00:00:00* Test Item Value Reference Range Interpretation Comme nts CHOLESTEROL (test code = 2210) 243 MG/DL TRIGLYCERIDES (test code = 2232) 150 MG/DL HDL CHOLESTEROL (test code = 2220) 55 MG/DL CALC LDL CHOL (test code = 2237) 160 MG/DL RISK RATIO LDL/HDL (test cod e = 2238) 2.91 RATIO Juan J DowCOMPREHENSIVE METABOLIC [id number] 00:00:00* Test Item Value Reference Range Interpretation Comme nts GLUCOSE (test code = 2217) 94 MG/DL BUN (test code = 2208) 54 MG/DL CREATININE (test code = 2214) 3.54 MG/DL eGFR (2020 CKD-EPI) (test co de = 40191) 17 ML/MIN/1.73 CALC BUN/CREAT (test code = [...] = 2219) 17 U/L Juan J DowPSA, [id number] 00:00:00* Test Item Value Reference Range Interpretation Comme nts PSA, TOTAL (test code = 2606) 7.76 NG/ML Juan J Gallegos AustinURIC [id number] 00:00:00* Test Item Value Reference Range Interpretation Comme nts URIC ACID (test code = 2233) 7.9 MG/DL Juan J DowMICROSCOPIC URINALYSIS, REFLEX [id number] 00:00:00* Test Item Value Reference Range Interpretation Comme nts WHITE BLOOD CELLS (test code = 1513) 0-5 /HPF RED BLOOD CELLS (test code = 1514) 6-10 /HPF EPITHELIAL CELLS (test code = 38308) 0-5 /HPF BACTERIA (test code = 1515) NONE SEEN CASTS, HYALINE (test code = 1517) TRACE Juan J DowCBC W/AUTO [id number] 00:00:00* Test Item Value Reference Range Interpretation [...] ABS NUCLEATED RBCS (test cod e = 92737) 0.00 K/UL COMMENTS (test code = 1016) (NOTE) Juan J Gallegos AustinLIPID [id number] 00:00:00* Test Item Value Reference Range Interpretation Comme nts CHOLESTEROL (test code = 2210) 243 MG/DL TRIGLYCERIDES (test code = 2232) 150 MG/DL HDL CHOLESTEROL (test code = 2220) 55 MG/DL CALC LDL CHOL (test code = 2237) 160 MG/DL RISK RATIO LDL/HDL (test cod e = 2238) 2.91 RATIO Juan J DowCOMPREHENSIVE METABOLIC [id number] 00:00:00* Test Item Value Reference Range Interpretation Comme nts GLUCOSE (test code = 2217) 94 MG/DL BUN (test code = 2208) 54 MG/DL CREATININE (test code = 2214) 3.54 MG/DL eGFR (2020 CKD-EPI) (test co de = 13044) 17 ML/MIN/1.73 CALC BUN/CREAT (test code = [...] = 2219) 17 U/L Juan J DowPSA, [id number] 00:00:00* Test Item Value Reference Range Interpretation Comme nts PSA, TOTAL (test code = 2606) 7.76 NG/ML Juan J DowURIC [id number] 00:00:00* Test Item Value Reference Range Interpretation Comme nts URIC ACID (test code = 2233) 7.9 MG/DL Juan J DowMICROSCOPIC URINALYSIS, REFLEX [id number] 00:00:00* Test Item Value Reference Range Interpretation Comme nts WHITE BLOOD CELLS (test code = 1513) 0-5 /HPF RED BLOOD CELLS (test code = 1514) 6-10 /HPF EPITHELIAL CELLS (test code = 36097) 0-5 /HPF BACTERIA (test code = 1515) NONE SEEN CASTS, HYALINE (test code = 1517) TRACE Juan J DowCBC W/AUTO [id number] 00:00:00* Test Item Value Reference Range Interpretation [...] ABS NUCLEATED RBCS (test cod e = 39527) 0.00 K/UL COMMENTS (test code = 1016) (NOTE) Juan J DowLIPID [id number] 00:00:00* Test Item Value Reference Range Interpretation Comme nts CHOLESTEROL (test code = 2210) 243 MG/DL TRIGLYCERIDES (test code = 2232) 150 MG/DL HDL CHOLESTEROL (test code = 2220) 55 MG/DL CALC LDL CHOL (test code = 2237) 160 MG/DL RISK RATIO LDL/HDL (test cod e = 2238) 2.91 RATIO uJan J DowCOMPREHENSIVE METABOLIC [id number] 00:00:00* Test Item Value Reference Range Interpretation Comme nts GLUCOSE (test code = 2217) 94 MG/DL BUN (test code = 2208) 54 MG/DL CREATININE (test code = 2214) 3.54 MG/DL eGFR (2020 CKD-EPI) (test co de = 34734) 17 ML/MIN/1.73 CALC BUN/CREAT (test code = [...] = 2219) 17 U/L Juan J DowPSA, [id number] 00:00:00* Test Item Value Reference Range Interpretation Comme nts PSA, TOTAL (test code = 2606) 7.76 NG/ML Juan J DowSTREP A [id number] 00:00:00* Test Item Value Reference Range Interpretation Comme nts Result (test code = 11937-8) NG LIPID PANEL WITH REFLEX DIRECT [id number] 00:00:00* Test Item Value Reference Range Interpretation Comme nts CALC LDL CHOL (test code = 00583-3) 86 MG/DL See_Comment [Automated messa ge] The [...] normal/abnormal. RISK RATIO LDL/HDL (test code = 53757-5) 2.10 RATIO See_Comment [Automated message] The system [...] by Adelina Notes Date/Time Note Provider Source [facility]2025-08-19 00:00:00 [facility]2025-07-30 00:00:00 [facility]2025-07-17 00:00:00 [facility]2025-07-03 00:00:00 [facility]2025-05-29 00:00:00 [facility]2025-03-18 00:00:00 [facility]2025-02-26 00:00:00 [facility]2025-02-04 00:00:00 [facility]2024-12-16 00:00:00 [facility]2024-11-25 00:00:00 [facility]2024-11-20 00:00:00 [facility]2024-10-14 00:00:00 [facility]2024-09-25 00:00:00 [facility]2024-09-09 00:00:00 [facility]2024-08-19 00:00:00 [facility]2024-08-07 00:00:00 [facility]2024-07-12 00:00:00 [facility]
[2025-01-13 07:27] LABS: Absolute Lymphocytes (CBC) 0.7 K/uL (0.7-4.9); Hematocrit 25.4 % (39.6-49.0); Hemoglobin 8.3 g/dL (13.6-17.9); MCH 30.7 pg (27.0-35.0); MCHC 32.6 g/dL (32.0-36.0); MCV 94.3 fL (80-100); MPV 7.8 fL (7.6-11.3); Nucleated RBC Absolute Count 0.1 (0-0); Nucleated Red Blood Cells % 0.8 % (0-0); RBC Red Blood Cell Count 2.69 M/uL (4.33-5.43); White Blood Count 7.10 thou/uL (4.3-10.9)
[2025-01-13] MEDS ORDERED: ONDANSETRON 4 MG/2 ML VIAL ONE (07:28)
[2025-01-13] MEDS ORDERED: ASPIRIN 81 MG CHEWABLE TABLET ONE (07:28)
[2025-01-13] MEDS ORDERED: NITROGLYCERIN 1 GM PKT TD ONE (07:28)
[2025-01-13] MEDS ORDERED: MORPHINE 2 MG/ML SYR ONE (07:28)
[2025-01-13 07:34] LABS: PT Prothrombin Time 13.0 SECONDS (10-13.0); Protime INR 1.16
--- NOTE | 2025-01-13 07:43 | RAD REPORT ---
Procedure: Chest Single View HISTORY: Chest pain COMPARISON: January 06, 2025 FINDINGS: The lungs appear clear of acute infiltrate. No significant pleural effusion noted. The heart is mildly to moderately enlarged. Central venous catheter in place. IMPRESSION: No acute abnormality is displayed.
[2025-01-13 07:47] LABS: ALT/SGPT 29 U/L (16-61); AST/SGOT 14 U/L (15-37); Albumin 3.7 g/dL (3.4-5.0); Albumin/Globulin Ratio 0.8 (1.1-1.8); Alkaline Phosphatase 106 U/L (45-117); Anion Gap 20.3 mEq/L (5.0-15.0); BUN Blood Urea Nitrogen 67 mg/dL (7-18); Globulin 4.4 g/dL (2.3-3.5); Glucose Level 167 mg/dL (74-106); Magnesium 2.2 mg/dL (1.6-2.4); NT PRO-BNP 6761 pg/mL (<450); Potassium 5.3 mEq/L (3.5-5.1); Troponin High Sensitivity 32.6 pg/mL (<58.9)
[2025-01-13 07:49] LABS: Bilirubin Indirect, Calculated 0.2 mg/dL (0.2-0.8)
--- NOTE | 2025-01-13 09:19 | EDPHYS ---
Physician Documentation [facility] Name: Iam Nelson Age: 79 yrs Sex: Male : 1945 Arrival Date: 01/13/2025 Time: 06:17 Bed 18 Private MD: ED Physician Ander Perdomo HPI: 01/13 06:28 This 79 yrs old Male presents to ER via Unassigned with complaints of sob, cp brandan , due for dialysis this am. 06:28 The patient has shortness of breath with light activity. Onset: The symptoms/episode brandan began/occurred this morning, yesterday. Duration: The symptoms are continuous, and are steadily getting worse. The patient's shortness of breath has no apparent modifying factors. The patient or guardian reports chest pain that is located primarily in the substernal area. The patient has elevated blood pressure and discovered this at home. Modifying factors: The symptoms are aggravated by activity, The symptoms are alleviated by remaining still. Associated signs and symptoms: Pertinent positives: non-productive cough, dizziness, Pertinent negatives: fever. Historical: - PMHx: 07:49 Cataracts; inflammed prostate; Hypertension; Hyperlipidemia; End stage renal disease; bp kidney disease; - PSHx: 07:49 cataracts; fistula; bp - Immunization history:: Adult Immunizations up to date. - Infectious Disease History:: Denies. - Family history:: not pertinent. - Social history:: Smoking status: Patient denies any tobacco usage or history of. ROS: 06:28 Constitutional: Negative for fever, chills, and weight loss, Eyes: Negative for injury, brandan pain, redness, and discharge, ENT: Negative for injury, pain, and discharge, Neck: Negative for injury, pain, and swelling, Abdomen/GI: Negative for abdominal pain, nausea, vomiting, diarrhea, and constipation, Back: Negative for injury and pain, : Negative for injury, bleeding, discharge, and swelling, MS/Extremity: Negative for injury and deformity, Skin: Negative for injury, rash, and discoloration, Neuro: Negative for headache, weakness, numbness, tingling, and seizure, Psych: Negative for depression, anxiety, suicide ideation, homicidal ideation, and hallucinations, Allergy/Immunology: Negative for hives, rash, and allergies, Endocrine: Negative for neck swelling, polydipsia, polyuria, polyphagia, and marked weight changes, Hematologic/Lymphatic: Negative for swollen nodes, abnormal bleeding, and unusual bruising, 06:28 Cardiovascular: Positive for chest pain, of the chest, 06:28 Respiratory: Positive for cough, shortness of breath, at rest. Exam: 06:28 Constitutional: This is a well developed, well nourished patient who is awake, alert, brandan and in no acute distress. Head/Face: Normocephalic, atraumatic. Eyes: Pupils equal round and reactive to light, extra-ocular motions intact. Lids and lashes normal. Conjunctiva and sclera are non-icteric and not injected. Cornea within normal limits. Periorbital areas with no swelling, redness, or edema. ENT: Nares patent. No nasal discharge, no septal abnormalities noted. Tympanic membranes are normal and external auditory canals are clear. Oropharynx with no redness, swelling, or masses, exudates, or evidence of obstruction, uvula midline. Mucous membranes moist. Neck: Trachea midline, no thyromegaly or masses palpated, and no cervical lymphadenopathy. Supple, full range of motion without nuchal rigidity, or vertebral point tenderness. No Meningismus. Chest/axilla: Normal chest wall appearance and motion. Nontender with no deformity. No lesions are appreciated. Abdomen/GI: Soft, non-tender, with normal bowel sounds. No distension or tympany. No guarding or rebound. No evidence of tenderness throughout. Back: No spinal tenderness. No costovertebral tenderness. Full range of motion. Male : Normal genitalia with no discharge or lesions. Skin: Warm, dry with normal turgor. Normal color with no rashes, no lesions, and no evidence of cellulitis. MS/ Extremity: Pulses equal, no cyanosis. Neurovascular intact. Full, normal range of motion., bilateral aka Neuro: Awake and alert, GCS 15, oriented to person, place, time, and situation. Cranial nerves II-XII grossly intact. Motor strength 5/5 in all extremities. Sensory grossly intact. Cerebellar exam normal. Normal gait. Psych: Awake, alert, with orientation to person, place and time. Behavior, mood, and affect are within normal limits. 06:28 Cardiovascular: Rate: tachycardic, actual rate is 109 bpm, Rhythm: regular, Pulses: Pulses are 4+ in bilateral radial, brachial, femoral, popliteal, posterior tibial and and dorsalis pedis arteries.. Heart sounds: normal, JVD: is not appreciated, 06:28 ECG was reviewed by the Attending Physician. Vital Signs: 07:00 BP 159 / 62; Pulse 99; Resp 15; Temp 98.1; Pulse Ox 97% ; bp 07:50 BP 156 / 58; Pulse 87; Resp 15; Pulse Ox 100% ; Weight 58.97 kg; Height 5 ft. 4 in. ; bp 10:52 BP 137 / 60; Pulse 73; Resp 15; Pulse Ox 97% ; bp 14:47 BP 123 / 53; Pulse 66; Resp 18; Pulse Ox 98% ; bp 07:50 Body Mass Index 22.32 (58.97 kg, 162.56 cm) bp MDM: 06:22 Medical Screening Exam initiated brandan 06:32 Differential diagnosis: Anemia Anxiety Reaction asthma, Bronchitis CHF exacerbation, brandan abnormal EKG, acute myocardial infarction, acute pericarditis, anxiety, coronary artery disease chest wall pain, Cholelithiasis costochondritis, esophagitis, gastritis, gastroesophageal reflux disease (GERD), hiatal hernia, Myocardial Infarction pneumonia, Pneumothorax Psychogenic pulmonary edema, Pulmonary Embolism reactive airway disease, Sepsis Unstable Angina. Antibiotic administration: Not indicated. HEART Score: History: Slightly Suspicious (0), ECG: Non specific repolarization disturbance / LBTB / PM (1), Age: > or = 65 years (2), Risk Factors: > or = 3 Risk factors for atherosclerotic disease (2), [Hypercholesterolemia] [Hypertension] [DM] [Obesity]. The patient was given aspirin in the Emergency Department. WILL Risk Score: 1 - patient's age is greater or equal to 65 years, 1 - Three or more CAD risk factors, [Family Hx], [HTN], [DM], 1- Known CAD, 1 - ASA use in past 7 days, 1 - Recent [<24hrs] Severe Angina, TOTAL SCORE = 5. Immunization status: Pneumococcal vaccine: within last 5 years. Influenza vaccine: within last 5 years. Data reviewed: vital signs, nurses notes, lab test result(s), EKG, radiologic studies, plain films. Consideration of Admission/Observation Escalation of care including admission/observation considered. I considered the following discharge prescriptions or medication management in the emergency department Medications were administered in the Emergency Department. See MAR. Test considered but Not performed: Ultrasound no 2 d echo. Care significantly affected by the following chronic conditions: Diabetes, Hypertension, Chronic Kidney Disease. 07:34 Transition of care: Care assumed from Miguelangel Suarez MD. ED course: 79-year-old male ms3 presenting to the emergency department for hypertension and chest pain. Patient is on renal dialysis Monday, Monday, Monday. Patient's last dialysis was on Monday. Patient currently pending labs and imaging. 01/13 06:28 Order name: Basic Metabolic Panel; Complete Time: 08:10 brandan 01/13 06:28 Order name: CBC with Diff; Complete Time: 09:59 brandan 01/13 06:28 Order name: LFT's; Complete Time: 08:10 brandan 01/13 06:28 Order name: Magnesium; Complete Time: 08:10 brandan 01/13 06:28 Order name: NT PRO-BNP; Complete Time: 08:10 brandan 01/13 06:28 Order name: PT-INR; Complete Time: 08:10 brandan 01/13 06:28 Order name: Troponin HS; Complete Time: 08:10 brandan 01/13 09:05 Order name: Troponin High Sensitivity; Complete Time: 10:28 la1 01/13 09:30 Order name: Basic Metabolic Panel EDMS 01/13 09:30 Order name: Basic Metabolic Panel EDMS 01/13 09:30 Order name: Basic Metabolic Panel EDMS 01/13 09:30 Order name: CBC with Automated Diff EDMS 01/13 09:30 Order name: CBC with Automated Diff EDMS 01/13 09:30 Order name: CBC with Automated Diff EDMS 01/13 09:30 Order name: Troponin High Sensitivity EDMS 01/13 09:30 Order name: Troponin High Sensitivity EDMS 01/13 09:52 Order name: CBC Smear Scan; Complete Time: 09:59 EDMS 01/13 06:28 Order name: XRAY Chest (1 view); Complete Time: 08:10 brandan 01/13 06:38 Order name: BIPAP brandan 01/13 06:28 Order name: Cardiac monitoring; Complete Time: 07:16 brandan 01/13 06:28 Order name: EKG - Nurse/Tech; Complete Time: 07:47 brandan 01/13 06:28 Order name: IV Saline Lock; Complete Time: 07:16 brandan 01/13 06:28 Order name: Labs collected and sent; Complete Time: 07:16 [facility] 01/13 06:28 Order name: O2 Per Protocol; Complete Time: 07: [facility] 01/13 06:28 Order name: O2 Sat Monitoring; Complete Time: 07: [facility] 01/13 06:28 Order name: Oxygen: 2 liter; Complete Time: 07:16 [facility] EC:28 Rate is 109 beats/min. Rhythm is regular. QRS [place] is Normal. GA interval is normal. [facility] QRS interval is normal. QT interval is normal. No Q waves. T waves are Normal. No ST changes noted. Clinical impression: Sinus tachycardia. Interpreted by me. Reviewed by me. Administered Medications: 07:15 Drug: Aspirin PO Chewable Tablet 162 mg PO once Route: PO; bp 07:15 Drug: morphine IVP or IV 2 mg IVP once over 4 mins Route: IVP; Infused Over: 4 mins; bp Site: left antecubital; 07:15 Drug: Ondansetron IVP 4 mg IVP once; over 2 minutes Route: IVP; Site: left antecubital; bp 07:15 Drug: Nitroglycerin Transdermal Ointment 2 % 1 inches Transdermal once Route: bp Transdermal; Site: anterior chest wall; 11:28 Drug: Heparin (TX Drip) 12 units/kg/hr - ([place] [address] units, D5W IV 500 ml) IV at bp calculated rate Per protocol; Max initial rate 1000 units/hr {Co-Signature: ar8 (Delroy Toney RN).} Route: IV; Rate: calculated rate; Site: left antecubital; 12:54 Follow up: IV Status: Infusion continued upon transfer bp 11:35 Drug: Heparin (TX-Bolus No thrombolytic) - HEParin IVP 60 units/kg IVP once; Max 5000 bp units {Co-Signature: ar8 (Delroy Toney RN).} Route: IVP; Site: left antecubital; 12:54 Follow up: Response: No adverse reaction bp 12:14 Not Given (Patient Refused): morphineor iv 2 mg IVP once over 4 mins bp Disposition: 10:29 Critical Care:. ms3 Disposition Summary: 01/13/25 09:18 Hospitalization Ordered Notes: Provider: Shwetha Clark ms3 Condition: Stable ms3 Problem: new ms3 Symptoms: are unchanged ms3 Bed/Room Type: Standard ms3 Hospitalization Status: Inpatient Admission(01/13/25 10:29) ms3 Location: Telemetry/MedSurg (Inpatient)(01/13/25 14:18) bd Room Assignment: 207(01/13/25 14:18) bd Diagnosis - Hyperkalemia ms3 - Anemia, unspecified ms3 - Chest pain, unspecified ms3 - Essential (primary) hypertension ms3 - Subsequent non-ST elevation (NSTEMI) myocardial infarction ms3 Forms: - Medication Reconciliation Form ms3 - SBAR form ms3 - Leadership Thank You Letter ms3 Critical care time excluding procedures: 10:29 Critical care time: Bedside Care: 30 minutes, Consultation: 5 minutes, Family ms3 Intervention: 5 minutes. Total time: 40 minutes Signatures: Dispatcher [employer] EDMS Selene Raymond Corey, MD MD cha Attema, Lee, FOOD PREPARATION WORKER-C FOOD PREPARATION WORKER-Cla1 Rober Florez, JEREMY RN Ander Campos DO DO ms3 Delroy Toney RN ar8 Corrections: (The following items were deleted from the chart) 06:28 06:28 BASIC METABOLIC PANEL+C.LAB.BRZ ordered. EDMS EDMS 06:28 06:28 CBC+H.LAB.BRZ ordered. EDMS EDMS 06:28 06:28 HEPATIC FUNCTION+C.LAB.BRZ ordered. EDMS EDMS 06:28 06:28 MAGNESIUM+C.LAB.BRZ ordered. EDMS EDMS 06:28 06:28 PROBNP+C.LAB.BRZ ordered. EDMS EDMS 06:28 06:28 PROTIME (+INR)+COAG.LAB.BRZ ordered. EDMS EDMS 06:28 06:28 Troponin High Sensitivity+C.LAB.BRZ ordered. EDMS EDMS 06:28 06:28 Chest Single View+RAD.RAD.BRZ ordered. EDMS EDMS 09:05 09:05 Troponin High Sensitivity+C.LAB.BRZ ordered. EDMS EDMS 10:29 09:18 Observation ms3 ms3 11:05 09:18 Telemetry/MedSurg (observation) ms3 bd 11:05 09:18 ms3 bd 14:18 11:05 [facility] ER HOLD bd bd 14:18 11:05 ERHOLD- bd bd
--- NOTE | 2025-01-13 09:19 | ER ---
Nurse's Notes [facility] Name: Iam Nelson Age: 79 yrs Sex: Male : 1945 Arrival Date: 01/13/2025 Time: 06:17 Bed 18 Private MD: Diagnosis: Hyperkalemia;Anemia, unspecified;Chest pain, unspecified;Essential (primary) hypertension;Subsequent non-ST elevation (NSTEMI) myocardial infarction Presentation: 01/13 07:00 Chief complaint: Patient states: SUBSTERNAL CP x1 HR. Coronavirus screen: At this time, bp the client does not indicate any symptoms associated with coronavirus-19. Ebola Screen: No symptoms or risks identified at this time. Initial Sepsis Screen: Does the patient meet any 2 criteria? No. Patient's initial sepsis screen is negative. Does the patient have a suspected source of infection? No. Patient's initial sepsis screen is negative. Risk Assessment: Do you want to hurt yourself or someone else? Patient reports no desire to harm self or others. Onset of symptoms was January 13, 2025 at 06:00. 07:00 Method Of Arrival: Ambulatory bp 07:00 Acuity: DORA 3 bp Triage Assessment: 07:00 General: Appears in no apparent distress. Behavior is cooperative, appropriate for age, bp anxious. Pain: Complains of pain in chest. EENT: No deficits noted. Neuro: No deficits noted. Cardiovascular: Reports chest pain. Respiratory: No deficits noted. GI: No signs and/or symptoms were reported involving the gastrointestinal system. : No signs and/or symptoms were reported regarding the genitourinary system. Derm: No deficits noted. Musculoskeletal: No deficits noted. Historical: - PMHx: 07:49 Cataracts; inflammed prostate; Hypertension; Hyperlipidemia; End stage renal disease; bp kidney disease; - PSHx: 07:49 cataracts; fistula; bp - Immunization history:: Adult Immunizations up to date. - Infectious Disease History:: Denies. - Family history:: not pertinent. - Social history:: Smoking status: Patient denies any tobacco usage or history of. Screenin:50 [facility] ED Fall Risk Assessment (Adult) History of falling in the last 3 months, bp including since admission No falls in past 3 months (0 pts) Confusion or Disorientation No (0 pts) Intoxicated or Sedated No (0 pts) Impaired Gait No (0 pts) Mobility Assist Device Used No (0 pt) Altered Elimination No (0 pt) Score/Fall Risk Level 0 - 2 = Low Risk Oriented to surroundings. Abuse screen: Denies threats or abuse. Denies injuries from another. Nutritional screening: No deficits noted. Tuberculosis screening: No symptoms or risk factors identified. Assessment: 07:00 General: SEE TRIAGE NOTE. bp 10:53 Reassessment: ADMIT INITIATED. bp 14:49 Reassessment: REPORT FAXED TO [facility]. bp Vital Signs: 07:00 BP 159 / 62; Pulse 99; Resp 15; Temp 98.1; Pulse Ox 97% ; bp 07:50 BP 156 / 58; Pulse 87; Resp 15; Pulse Ox 100% ; Weight 58.97 kg; Height 5 ft. 4 in. ; bp 10:52 BP 137 / 60; Pulse 73; Resp 15; Pulse Ox 97% ; bp 14:47 BP 123 / 53; Pulse 66; Resp 18; Pulse Ox 98% ; bp 07:50 Body Mass Index 22.32 (58.97 kg, 162.56 cm) bp ED Course: 06:19 Patient arrived in ED. rv1 06:22 Miguelangel Suarez MD is Attending Physician. brandan 07:00 Arm band placed on. bp 07:00 Initial lab(s) drawn, by ED staff, sent to lab. EKG done, by ED staff, reviewed by bp Ander Perdomo DO. Inserted saline lock: 20 gauge in left antecubital area, using aseptic technique. Blood collected. Flushed with 10 mL NS. 07:14 XRAY Chest (1 view) In Process Unspecified. EDMS 07:20 Attending Physician role handed off by Miguelangel Suarez MD ms3 07:20 Ander Perdomo DO is Attending Physician. ms3 07:46 Rober Florez, JEREMY is Primary Nurse. bp 07:48 Triage completed. bp 07:50 Patient has correct armband on for positive identification. bp 09:13 Shwetha Clark MD is Hospitalizing Provider. ms3 14:50 No provider procedures requiring assistance completed. Patient admitted, IV remains in bp place. Administered Medications: 07:15 Drug: Aspirin PO Chewable Tablet 162 mg PO once Route: PO; bp 07:15 Drug: morphine IVP or IV 2 mg IVP once over 4 mins Route: IVP; Infused Over: 4 mins; bp Site: left antecubital; 07:15 Drug: Ondansetron IVP 4 mg IVP once; over 2 minutes Route: IVP; Site: left antecubital; bp 07:15 Drug: Nitroglycerin Transdermal Ointment 2 % 1 inches Transdermal once Route: bp Transdermal; Site: anterior chest wall; 11:28 Drug: Heparin ([place] Drip) 12 units/kg/[place] - ([place] [address] units, D5W IV 500 ml) IV at bp calculated rate Per protocol; Max initial rate 1000 units/hr {Co-Signature: magali (Delroy Toney RN).} Route: IV; Rate: calculated rate; Site: left antecubital; 12:54 Follow up: IV Status: Infusion continued upon transfer bp 11:35 Drug: Heparin (HI-Bolus No thrombolytic) - HEParin IVP 60 units/kg IVP once; Max 5000 bp units {Co-Signature: magali (Delroy Toney RN).} Route: IVP; Site: left antecubital; 12:54 Follow up: Response: No adverse reaction bp 12:14 Not Given (Patient Refused): morphineor iv 2 mg IVP once over 4 mins bp Medication: 07:50 VIS not applicable for this client. bp Outcome: 09:18 Decision to Hospitalize by Provider. ms3 14:50 Admitted to Tele accompanied by tech, bp 14:50 Condition: stable 14:50 Instructed on the need for admit, 15:25 Patient left the ED. bc6 Signatures: Dispatcher [employer] EDMS Miguelangel Suarez MD MD cha Peltier, Brian, RN RN bp Ander Perdomo DO DO ms3 DewittJennie rv1 Glory Gonzalez bc6 Delroy Toney RN ar8 Corrections: (The following items were deleted from the chart) 10:52 07:50 BP 156 / 58; Pulse 87bpm; Resp 15bpm; Pulse Ox 100%; bp bp 11:44 07:50 BP 156 / 58; Pulse 87bpm; Resp 15bpm; Pulse Ox 100%; 58.97 kg; bp bp
[2025-01-13] MEDS ORDERED: ONDANSETRON 4 MG/2 ML VIAL IV PRN (09:26)
[2025-01-13] MEDS ORDERED: MORPHINE 2 MG/ML SYR IV PRN (09:26)
[2025-01-13 09:52] LABS: Anisocytosis 1+; Blood Morphology Comment NOTED (NOT SEEN); Polychromasia SLIGHT; White Blood Cell Scan OK (OK)
[2025-01-13] MEDS ORDERED: HEPARIN 5000 UNIT/ML 1 ML VIAL ONE (11:01)
[2025-01-13] MEDS ORDERED: HEPARIN/D5W 25,000 UNIT/500 ML BAG IV ONE (11:01)
[2025-01-13 12:21] VITALS: BMI 22.3
[2025-01-13] MEDS ORDERED: MANNITOL 25% 12.5 GM/50 ML VIAL IV PRN (13:55)
[2025-01-13] MEDS ORDERED: NA CHLORIDE 0.9% 1,000 ML IV PRN (13:55)
[2025-01-13] MEDS ORDERED: ALBUMIN HUMAN 25% 50 ML IV SCH (14:00)
--- NOTE | 2025-01-13 14:01 | P.CNS ---
Date of Consult: 01/13/25 Chief Complaint: chest pain History of Present Illness: Patient with PMH of ESRD on HD, HTN, mild CAD, presented with chest pain episode happened yesterday, denies any active symptoms upon interview, that chest pain lasted for 30 minutes, no radiation, felt nauseated and sick in the stomach, no breathing problems, no syncope. Allergies No Known Drug Allergies Allergy (Verified 09/03/24 15:04) Unknown Home medications list reviewed: Yes Home Medications: Gabapentin 100 mg PO BEDTIME 09/03/24 Hydrocodone 7.5/APAP 325 [[place] 7.5/325 mg*] 1 tab PO Q12H PRN #20 tab 09/05/24 Megestrol [Megace*] 10 ml PO BID #100 ml 09/05/24 Nepro Shake [Nepro*] 240 ml PO DAILY #30 can 09/05/24 Sevelamer Carbonate [Renvela*] 1,600 mg PO TIDWM #180 tab 09/05/24 Amlodipine [Norvasc*] 10 mg PO DAILY 10/08/24 Bimatoprost [Lumigan] 1 drop EACH EYE BEDTIME 10/08/24 Olmesartan Medoxomil [Benicar] 20 mg PO BEDTIME 10/08/24 cloNIDine HCL [Clonidine HCl] 0.1 mg PO BID 10/08/24 - Past Medical/Surgical History Diabetic: No -: HTN -: HLD -: BPH -: Cataracts -: GERD -: CKD V/ Proteinuria (Dr. Quesada/Dr. Magallon) -: ESRD -: right arm fistula Psychosocial/ Personal History: Patient is - Family History Mother Medical History: Cancer Notes: tumor - Social History Smoking Status: Never smoker Alcohol use: No CD- Drugs: No Caffeine use: No Place of Residence: Home Review of Systems 10-point ROS is otherwise unremarkable Physical Examination Temp Pulse Resp BP Pulse Ox 78 16 145/59 H 100 01/13/25 12:00 01/13/25 12:00 01/13/25 12:00 01/13/25 12:00 General: Alert, In no apparent distress HEENT: Atraumatic, PERRLA, Mucous membr. moist/pink, EOMI, Sclerae nonicteric Neck: Supple, 2+ carotid pulse no bruit, No LAD, Without JVD or thyroid abnormality Respiratory: Clear to auscultation bilaterally, Normal air movement Cardiovascular: Regular rate/rhythm, Normal S1 S2 Gastrointestinal: Normal bowel sounds, No tenderness Musculoskeletal: No tenderness Integumentary: No rashes Neurological: Normal gait, Normal speech, Normal tone, Normal affect Lymphatics: No axilla or inguinal lymphadenopathy Laboratory Data (last 24 hrs) 01/13/25 01/13/25 01/13/25 07:20 07:20 07:20 WBC 7.10 Hgb 8.3 L Hct 25.4 L Plt Count 305 PT 13.0 INR 1.16 Sodium 133 L Potassium 5.3 H BUN 67 H Creatinine 8.50 H Glucose 167 H Magnesium 2.2 Total Bilirubin 0.4 AST 14 L ALT 29 Alkaline Phosphatase 106 - Problems (1) Chest pain Onset Date: 01/18/16 Current Visit: No Status: Acute Plan: Patient with mild elevated troponin, chest pain is resolved, patient had a rece nt coronary angiogram that shown mild CAD continue to trend troponin until peak and down trending. continue heparin drip for 48 hours. continue ASA 81 mg daily. (2) ESRD (end stage renal disease) Current Visit: No Status: Acute Plan: continue scheduled dialysis (3) Hypertension Onset Date: 07/21/17 Current Visit: No Status: Acute Plan: reconcile and continue patient home medications.
--- NOTE | 2025-01-13 15:25 | P.HP ---
Certification for Inpatient Patient admitted to: Inpatient With expected LOS: >2 Midnights Patient will require the following post-hospital care: None Practitioner: I am a practitioner with admitting privileges, knowledge of patient current condition, hospital course, and medical plan of care. Services: Services provided to patient in accordance with Admission requirements found in Title 42 Section 412.3 of the Code of Federal Regulations <Tahir Oneil - Last Filed: 01/13/25 15:23> Patient History Date of Service: 01/13/25 Reason for admission: chest pain History of Present Illness: 79-year-old male with history of ESRD on HD, BPH, hypertension, hyperlipidemia, GERD presents emergency department chief complaint of chest pain. His chest pain began around 4 AM this morning while he was getting ready described as tightness, was relieved with medications given in the emergency department. Patient is evaluated in the emergency department his initial high sensitive troponin was normal at 32.6, potassium was 5.3 bicarb was 15. EKG without STEMI criteria, chest x-ray was unremarkable. ED prior wishes to admit patient under observation for ACS rule out. ED staff spoke with nephrology in regards to need for dialysis and hyperkalemia, during this time second troponin was checked and elevated at 241.3. Case was discussed with cardiology, patient had a recent coronary angiogram on 10/10 which showed mild ostial diagonal and ostial left circumflex disease at 30%. Given elevation in troponin patient be started on heparin drip and admitted. - Past Medical/Surgical History Has patient received pneumonia vaccine in the past: Yes Diabetic: No -: HTN -: HLD -: BPH -: Cataracts -: GERD -: CKD V/ Proteinuria (Dr. Quesada/Dr. Magallon) -: ESRD -: right arm fistula Psychosocial/ Personal History: Patient is - Family History Mother -: Cancer Notes: tumor - Social History Smoking Status: Never smoker Alcohol use: No CD- Drugs: No Caffeine use: No Place of Residence: Home <Tahir Oneil - Last Filed: 01/13/25 15:23> Date of Service: 01/13/25 <Shwetha Clark - Last Filed: 01/13/25 16:06> Allergies No Known Drug Allergies Allergy (Verified 09/03/24 15:04) Unknown Home Medications: Gabapentin 100 mg PO BEDTIME 09/03/24 Hydrocodone 7.5/APAP 325 [[place] 7.5/325 mg*] 1 tab PO Q12H PRN #20 tab 09/05/24 Megestrol [Megace*] 10 ml PO BID #100 ml 09/05/24 Nepro Shake [Nepro*] 240 ml PO DAILY #30 can 09/05/24 Sevelamer Carbonate [Renvela*] 1,600 mg PO TIDWM #180 tab 09/05/24 Amlodipine [Norvasc*] 10 mg PO DAILY 10/08/24 Bimatoprost [Lumigan] 1 drop EACH EYE BEDTIME 10/08/24 Olmesartan Medoxomil [Benicar] 20 mg PO BEDTIME 10/08/24 cloNIDine HCL [Clonidine HCl] 0.1 mg PO BID 10/08/24 Review of Systems 10-point ROS is otherwise unremarkable Cardiovascular: Chest Pain <Tahir Oneil - Last Filed: 01/13/25 15:23> Physical Examination - Vital Signs Blood Pressure: 145/59 Pulse: 78 Respirations: 16 Pulse Ox (%): 100 - Physical Exam General: Alert, In no apparent distress, Oriented x3 HEENT: Atraumatic, PERRLA, EOMI Neck: Supple, 2+ carotid pulse no bruit, No LAD Respiratory: Clear to auscultation bilaterally, Normal air movement Cardiovascular: Regular rate/rhythm, Normal S1 S2 Gastrointestinal: Normal bowel sounds, No tenderness Musculoskeletal: No tenderness Integumentary: No rashes Neurological: Normal gait, Normal speech, Normal strength at 5/5 x4 extr, Normal affect - Studies Laboratory Data (last 24 hrs) 01/13/25 01/13/25 01/13/25 07:20 07:20 07:20 WBC 7.10 Hgb 8.3 L Hct 25.4 L Plt Count 305 PT 13.0 INR 1.16 Sodium 133 L Potassium 5.3 H BUN 67 H Creatinine 8.50 H Glucose 167 H Magnesium 2.2 Total Bilirubin 0.4 AST 14 L ALT 29 Alkaline Phosphatase 106 <Tahir Oneil - Last Filed: 01/13/25 15:23> - Studies Laboratory Data (last 24 hrs) 01/13/25 01/13/25 01/13/25 07:20 07:20 07:20 WBC 7.10 Hgb 8.3 L Hct 25.4 L Plt Count 305 PT 13.0 INR 1.16 Sodium 133 L Potassium 5.3 H BUN 67 H Creatinine 8.50 H Glucose 167 H Magnesium 2.2 Total Bilirubin 0.4 AST 14 L ALT 29 Alkaline Phosphatase 106 <Shwetha Clark - Last Filed: 01/13/25 16:06> Assessment and Plan - Plan Assessment: Chest pain, NSTEMIhistory of mild nonobstructive CAD 10/10/2024 ESRD on HD MWF with hyperkalemia Hypertension Hyperlipidemia BPH GERD Anemia of chronic disease Plan: Chest pain, NSTEMIhistory of mild nonobstructive CAD 10/10/2024 Had recent cath 10/10/2024 which showed mild nonobstructive CAD Heparin drip ordered, will continue for 48 hours Cardiology following Chest pain resolved at this time Continue to monitor on telemetry ESRD on HD MWF with hyperkalemia Nephrology following Will undergo acute HD today Monitor chemistry daily Hypertension Hyperlipidemia BPH GERD Resume home medications when verified Anemia of chronic disease Monitor H&H daily DVT PPX: Heparin drip Code status: Full code Discharge Plan: Home Plan to discharge in: 48 Hours - Advance Directives Does patient have a Living Will: No Does patient have a Durable POA for Healthcare: No - Code Status/Comfort Care Code Status Assessed: Yes (Full code) Critical Care: No Time Spent Managing Pts Care (In Minutes): 67 <Tahir Oneil - Last Filed: 01/13/25 15:23> Physician Review: Patient Assessed, Agree with Above Assessment and Plan <Shwetha Clark - Last Filed: 01/13/25 16:06>
[2025-01-13] MEDS: EPOETIN ALFA 10,000 UNIT/ML VIAL IV SCH (18:00)
[2025-01-13] MEDS: ATORVASTATIN 40 MG TAB PO SCH (20:56)
[2025-01-13] MEDS: HEPARIN/D5W 25,000 UNIT/500 ML BAG IV SCH (20:57)
[2025-01-13] MEDS ORDERED: HEPARIN 5000 UNIT/ML 1 ML VIAL SQ SCH (21:00)
--- NOTE | 2025-01-13 21:35 | P.CNS ---
Date of Consult: 01/13/25 Reason for Consult: ESRD Requesting Physician: Shwetha Clark Chief Complaint: Chest pain History of Present Illness: 79-year-old male with history of ESRD on HD, BPH, hypertension, hyperlipidemia, GERD presents emergency department chief complaint of chest pain. His chest pain began around 4 AM this morning while he was getting ready described as tightness, was relieved with medications given in the emergency department. Patient is evaluated in the emergency department his initial high sensitive troponin was normal at 32.6, potassium was 5.3 bicarb was 15. EKG without STEMI criteria, chest x-ray was unremarkable. ED prior wishes to admit patient under observation for ACS rule out. ED staff spoke with nephrology in regards to need for dialysis and hyperkalemia, during this time second troponin was checked and elevated at 241.3. Case was discussed with cardiology, patient had a recent coronary angiogram on 10/10 which showed mild ostial diagonal and ostial left circumflex disease at 30%. Given elevation in troponin patient be started on heparin drip and admitted. 06:28 This 79 yrs old Male presents to ER via Unassigned with complaints of sob, cp brandan , due for dialysis this am. 06:28 The patient has shortness of breath with light activity. Onset: The symptoms/episode brandan began/occurred this morning, yesterday. Duration: The symptoms are continuous, and are steadily getting worse. The patient's shortness of breath has no apparent modifying factors. The patient or guardian reports chest pain that is located primarily in the substernal area. The patient has elevated blood pressure and discovered this at home. Modifying factors: The symptoms are aggravated by activity, The symptoms are alleviated by remaining still. Associated signs and symptoms: Pertinent positives: non- productive cough, dizziness, Pertinent negatives: fever. Allergies No Known Drug Allergies Allergy (Verified 09/03/24 15:04) Unknown Home medications list reviewed: Yes Home Medications: Gabapentin 100 mg PO BEDTIME 09/03/24 Hydrocodone 7.5/APAP 325 [[place] 7.5/325 mg*] 1 tab PO Q12H PRN #20 tab 09/05/24 Megestrol [Megace*] 10 ml PO BID #100 ml 09/05/24 Nepro Shake [Nepro*] 240 ml PO DAILY #30 can 09/05/24 Sevelamer Carbonate [Renvela*] 1,600 mg PO TIDWM #180 tab 09/05/24 Amlodipine [Norvasc*] 10 mg PO DAILY 10/08/24 Bimatoprost [Lumigan] 1 drop EACH EYE BEDTIME 10/08/24 Olmesartan Medoxomil [Benicar] 20 mg PO BEDTIME 10/08/24 cloNIDine HCL [Clonidine HCl] 0.1 mg PO BID 10/08/24 - Past Medical/Surgical History Diabetic: No -: HTN -: HLD -: BPH -: Cataracts -: GERD -: ESRD/ Proteinuria (Dr. Quesada/Dr. Magallon) -: right arm fistula Psychosocial/ Personal History: Patient is - Family History Mother Medical History: Cancer Notes: tumor - Social History Smoking Status: Never smoker Alcohol use: No CD- Drugs: No Caffeine use: No Place of Residence: Home Review of Systems 10-point ROS is otherwise unremarkable Cardiovascular: Chest Pain Physical Examination Temp Pulse Resp BP Pulse Ox 97.6 F 104 H 20 124/55 L 98 01/13/25 18:48 01/13/25 18:48 01/13/25 18:48 01/13/25 18:48 01/13/25 18:48 General: In no apparent distress, Oriented x3, Cooperative HEENT: Atraumatic Neck: Supple Respiratory: Clear to auscultation bilaterally Cardiovascular: Regular rate/rhythm, Edema Gastrointestinal: Soft and benign, Non-distended Musculoskeletal: No clubbing, No contractures Integumentary: No rashes, No cyanosis Neurological: Normal speech Laboratory Data (last 24 hrs) 01/13/25 01/13/25 01/13/25 07:20 07:20 07:20 WBC 7.10 Hgb 8.3 L Hct 25.4 L Plt Count 305 PT 13.0 INR 1.16 Sodium 133 L Potassium 5.3 H BUN 67 H Creatinine 8.50 H Glucose 167 H Magnesium 2.2 Total Bilirubin 0.4 AST 14 L ALT 29 Alkaline Phosphatase 106 Imagings Data: [id number] Reason for Exam: CHEST PAIN Report Status: Signed Procedure: Chest Single View HISTORY: Chest pain COMPARISON: January 06, 2025 FINDINGS: The lungs appear clear of acute infiltrate. No significant pleural effusion noted. The heart is mildly to moderately enlarged. Central venous catheter in place. IMPRESSION: No acute abnormality is displayed. Conclusions/Impression: ESRD on HD -HD TIW Hyperkalemia -Acute HD HTN with CKD/ CHF -Restart home antihypertensives Diastolic CHF, chronic Peripheral Edema -UF with HD -Low sodium diet Anemia in CKD -Retacrit qHD CKD MBD Secondary HyperParathyroidism -Start Ergo Chest Pain -Follow up with cardiology Case reviewed with Dr. Dewitt Thank you kindly for the consultation
[2025-01-13] MEDS: NEPRO SHAKE 237 ML CAN PO SCH (21:45)
[2025-01-13] MEDS: DOCUSATE NA 100 MG CAP PO SCH (21:45)
[2025-01-14 06:03] LABS: Absolute Lymphocytes (CBC) 0.6 K/uL (0.7-4.9); Hematocrit 22.8 % (39.6-49.0); Hemoglobin 7.5 g/dL (13.6-17.9); MCH 30.9 pg (27.0-35.0); MCHC 32.8 g/dL (32.0-36.0); MCV 94.1 fL (80-100); MPV 7.8 fL (7.6-11.3); Nucleated RBC Absolute Count 0.1 (0-0); Nucleated Red Blood Cells % 1.2 % (0-0); RBC Red Blood Cell Count 2.43 M/uL (4.33-5.43); White Blood Count 11.40 thou/uL (4.3-10.9)
[2025-01-14 06:23] LABS: Anion Gap 14.1 mEq/L (5.0-15.0); BUN Blood Urea Nitrogen 44.0 mg/dL (7-18); Glucose Level 121.0 mg/dL (74-106); Potassium 5.1 mEq/L (3.5-5.1)
[2025-01-14 06:27] LABS: Troponin High Sensitivity 813.0 pg/mL (<58.9)
[2025-01-14 06:32] LABS: Hepatitis B surface AG Interp. Nonreactive (Nonreactive)
[2025-01-14 06:33] LABS: HBsAG Nonreactive Report Report
[2025-01-14 08:03] LABS: Anisocytosis 1+; Blood Morphology Comment NOTED (NOT SEEN); Differential Total Cells Count 100; Segmented Neutrophils 87 % (40-80)
[2025-01-14 08:04] LABS: Polychromasia 1+
[2025-01-14] MEDS: ASPIRIN EC 81 MG TAB PO SCH (10:18)
[2025-01-14] MEDS: DRISDOL (VITAMIN D=ERGOCALCIFEROL) 50000 UNIT CAP PO SCH (10:19)
[2025-01-14] MEDS: MULTIVITAMINS,THERAPEUT 1 TAB PO SCH (10:19)
[2025-01-14 10:39] VITALS: BP 130/58; TEMP 97.8
--- NOTE | 2025-01-14 12:11 | P.PN ---
Subjective Date of Service: 01/14/25 Chief Complaint: Chest pain Subjective: No new changes, No C/O voiced, Tolerating diet, Ambulating, Improving Review of Systems 10-point ROS is otherwise unremarkable Physical Examination - Vital Signs Temperature: 97.8 F Blood Pressure: 130/58 Pulse: 75 Respirations: 20 Pulse Ox (%): 99 - Physical Exam General: Alert, In no apparent distress HEENT: Atraumatic, PERRLA, EOMI Neck: Supple, JVD not distended Respiratory: Clear to auscultation bilaterally, Normal air movement Cardiovascular: Regular rate/rhythm, Normal S1 S2 Gastrointestinal: Normal bowel sounds, No tenderness Musculoskeletal: No tenderness Integumentary: No rashes Neurological: Normal speech, Normal tone, Normal affect Lymphatics: No axilla or inguinal lymphadenopathy - Studies Medications List Reviewed: Yes Assessment And Plan - Current Problems (Diagnosis) (1) Chest pain Onset Date: 01/18/16 Current Visit: No Status: Acute Plan: Patient with mild elevated troponin, chest pain is resolved, patient had a recent coronary angiogram that shown mild CAD Troponin peaked at 800 and down trending, no more chest pain D/C heparin drip continue ASA 81 mg daily. add Plavix 75 mg daily (2) ESRD (end stage renal disease) Current Visit: No Status: Acute Plan: continue scheduled dialysis (3) Hypertension Onset Date: 07/21/17 Current Visit: No Status: Acute Plan: reconcile and continue patient home medications. Physician Review: Patient Assessed, Agree with Above Assessment and Plan
[2025-01-14] MEDS: CLOPIDOGREL 75 MG TABLET PO ONE (12:47)
[2025-01-14 12:49] LABS: Absolute Lymphocytes (CBC) 1.1 K/uL (0.7-4.9); Hematocrit 24.4 % (39.6-49.0); Hemoglobin 7.9 g/dL (13.6-17.9); MCH 30.5 pg (27.0-35.0); MCHC 32.3 g/dL (32.0-36.0); MCV 94.3 fL (80-100); MPV 7.3 fL (7.6-11.3); Nucleated RBC Absolute Count 0.2 (0-0); Nucleated Red Blood Cells % 1.6 % (0-0); RBC Red Blood Cell Count 2.59 M/uL (4.33-5.43); White Blood Count 11.90 thou/uL (4.3-10.9)
--- NOTE | 2025-01-14 15:42 | P.DS ---
Admission Date: 01/13/25 Discharge Date: 01/14/25 Reason for Admission: Chest pain Brief History of Present Illness: 79-year-old male with history of ESRD on HD, BPH, hypertension, hyperlipidemia, GERD presents emergency department chief complaint of chest pain. His chest pain began around 4 AM this morning while he was getting ready described as tightness, was relieved with medications given in the emergency department. Patient is evaluated in the emergency department his initial high sensitive troponin was normal at 32.6, potassium was 5.3 bicarb was 15. EKG without STEMI criteria, chest x-ray was unremarkable. ED prior wishes to admit patient under observation for ACS rule out. ED staff spoke with nephrology in regards to need for dialysis and hyperkalemia, during this time second troponin was checked and elevated at 241.3. Case was discussed with cardiology, patient had a recent coronary angiogram on 10/10 which showed mild ostial diagonal and ostial left circumflex disease at 30%. Given elevation in troponin patient be started on heparin drip and admitted. Hospital Course: Assessment: Chest pain, NSTEMIhistory of mild nonobstructive CAD 10/10/2024 ESRD on HD MWF with hyperkalemia Hypertension Hyperlipidemia BPH GERD Anemia of chronic disease Patient presented to the emergency department chief complaint chest pain. His initial high sensitive troponin was 32.6, it climbed and peaked at 813 and is now downtrending. After this initial episode of chest pain patient has remained pain-free and is feeling well. Cardiology was consulted and reviewed his recent coronary angiogram which showed mild CAD. Recommendation at this time is to continue aspirin and add Plavix 75 mg daily and follow-up closely with cardiology clinic on 01/20 or 01/21 for further assessment. Patient doing well at this time stable for discharge and outpatient follow-up. Return precautions given. Continue other home medications including your statin and blood pressure medications <Tahir Oneil - Last Filed: 01/14/25 15:41> Admission Date: 01/13/25 Discharge Date: 01/14/25 <Shwetha Clark - Last Filed: 01/14/25 16:35> Disposition: ROUTINE DISCHARGE Discharge Condition: GOOD Vital Signs/Physical Exam: Temp Pulse Resp BP Pulse Ox 97.8 F 75 20 130/58 L 99 01/14/25 12:10 01/14/25 12:10 01/14/25 12:10 01/14/25 12:10 01/14/25 12:10 General: Alert, In no apparent distress, Oriented x3 HEENT: Atraumatic, PERRLA Neck: Supple, JVD not distended Respiratory: Clear to auscultation bilaterally, Normal air movement Cardiovascular: Regular rate/rhythm, Normal S1 S2 Gastrointestinal: Normal bowel sounds, No tenderness Neurological: Normal speech, Normal affect Laboratory Data at Discharge: WBC 11.90 thou/uL (4.3-10.9) H 01/14/25 12:43 Hgb 7.9 g/dL (13.6-17.9) L 01/14/25 12:43 Hct 24.4 % (39.6-49.0) L 01/14/25 12:43 Plt Count 287 thou/uL (152-406) 01/14/25 12:43 PT 13.0 SECONDS (10-13.0) 01/13/25 07:20 INR 1.16 01/13/25 07:20 APTT Cancelled 01/14/25 14:45 Sodium 133 mEq/L (136-145) L 01/14/25 05:17 Potassium 5.1 mEq/L (3.5-5.1) 01/14/25 05:17 BUN 44 mg/dL (7-18) H 01/14/25 05:17 Creatinine 5.47 mg/dL (0.70-1.30) H 01/14/25 05:17 Glucose 121 mg/dL (74-106) H 01/14/25 05:17 Magnesium 2.2 mg/dL (1.6-2.4) 01/13/25 07:20 Total Bilirubin 0.4 mg/dL (0.2-1.0) 01/13/25 07:20 AST 14 U/L (15-37) L 01/13/25 07:20 ALT 29 U/L (16-61) 01/13/25 07:20 Alkaline Phosphatase 106 U/L (45-117) 01/13/25 07:20 <Tahir Oneil - Last Filed: 01/14/25 15:41> Vital Signs/Physical Exam: Temp Pulse Resp BP Pulse Ox 97.8 F 75 20 130/58 L 99 01/14/25 12:10 01/14/25 12:10 01/14/25 12:10 01/14/25 12:10 01/14/25 12:10 Laboratory Data at Discharge: WBC 11.90 thou/uL (4.3-10.9) H 01/14/25 12:43 Hgb 7.9 g/dL (13.6-17.9) L 01/14/25 12:43 Hct 24.4 % (39.6-49.0) L 01/14/25 12:43 Plt Count 287 thou/uL (152-406) 01/14/25 12:43 PT 13.0 SECONDS (10-13.0) 01/13/25 07:20 INR 1.16 01/13/25 07:20 APTT Cancelled 01/14/25 14:45 Sodium 133 mEq/L (136-145) L 01/14/25 05:17 Potassium 5.1 mEq/L (3.5-5.1) 01/14/25 05:17 BUN 44 mg/dL (7-18) H 01/14/25 05:17 Creatinine 5.47 mg/dL (0.70-1.30) H 01/14/25 05:17 Glucose 121 mg/dL (74-106) H 01/14/25 05:17 Magnesium 2.2 mg/dL (1.6-2.4) 01/13/25 07:20 Total Bilirubin 0.4 mg/dL (0.2-1.0) 01/13/25 07:20 AST 14 U/L (15-37) L 01/13/25 07:20 ALT 29 U/L (16-61) 01/13/25 07:20 Alkaline Phosphatase 106 U/L (45-117) 01/13/25 07:20 <Shwetha Clark - Last Filed: 01/14/25 16:35> Diet: Renal Activity: Ad david Time spent managing pt's care (in minutes): 38 <Tahir Oneil - Last Filed: 01/14/25 15:41> Physician Review: Patient Assessed, Agree with Above Assessment and Plan <Shwetha Clark - Last Filed: 01/14/25 16:35> Home Medications: Gabapentin 100 mg PO BEDTIME 09/03/24 Hydrocodone 7.5/APAP 325 [[place] 7.5/325 mg*] 1 tab PO Q12H PRN #20 tab 09/05/24 Megestrol [Megace*] 10 ml PO BID #100 ml 09/05/24 Nepro Shake [Nepro*] 240 ml PO DAILY #30 can 09/05/24 Sevelamer Carbonate [Renvela*] 1,600 mg PO TIDWM #180 tab 09/05/24 Amlodipine [Norvasc*] 10 mg PO DAILY 10/08/24 Bimatoprost [Lumigan] 1 drop EACH EYE BEDTIME 10/08/24 Olmesartan Medoxomil [Benicar] 20 mg PO BEDTIME 10/08/24 cloNIDine HCL [Clonidine HCl] 0.1 mg PO BID 10/08/24 Aspirin [Aspirin EC] 81 mg PO DAILY #30 tab 01/14/25 Clopidogrel Bisulfate [Plavix] 75 mg PO DAILY #30 tab 01/14/25 New Medications: Aspirin [Aspirin EC] 81 mg PO DAILY #30 tab Clopidogrel Bisulfate [Plavix] 75 mg PO DAILY #30 tab Physician Discharge Instructions: Patient presented to the emergency department chief complaint chest pain. His initial high sensitive troponin was 32.6, it climbed and peaked at 813 and is now downtrending. After this initial episode of chest pain patient has remained pain-free and is feeling well. Cardiology was consulted and reviewed his recent coronary angiogram which showed mild CAD. Recommendation at this time is to continue aspirin and add Plavix 75 mg daily and follow-up closely with cardiology clinic on 01/20 or 01/21 for further assessment. Patient doing well at this time stable for discharge and outpatient follow-up. Return precautions given. Continue other home medications including your statin and blood pressure medications Followup: Reji Quesada DO [ACTIVE - CAN ADMIT] - 2-3 Days Hieu Barnhart MD [ACTIVE - CAN ADMIT] - 2-3 Days Chrystal Walker MD [Primary Care Provider] - 1 Week
--- NOTE | 2025-01-14 20:02 | P.PN ---
Date of Service: 01/14/25 Vital Signs Temp Pulse Resp BP Pulse Ox 97.8 F 75 20 130/58 L 99 01/14/25 12:10 01/14/25 12:10 01/14/25 12:10 01/14/25 12:10 01/14/25 12:10 Assessment/ Plan: Nephrology No dyspnea No chest pain No acute events overnight Feeling better this morning Vitals, medications, blood work and imaging reviewed in the chart General: In no apparent distress, Oriented x3, Cooperative HEENT: Atraumatic Neck: Supple Respiratory: Clear to auscultation bilaterally Cardiovascular: Regular rate/rhythm, Edema Gastrointestinal: Soft and benign, Non-distended Musculoskeletal: No clubbing, No contractures Integumentary: No rashes, No cyanosis Neurological: Normal speech Laboratory Data (last 24 hrs) 01/13/25 01/13/25 01/13/25 07:20 07:20 07:20 WBC 7.10 Hgb 8.3 L Hct 25.4 L Plt Count 305 PT 13.0 INR 1.16 Sodium 133 L Potassium 5.3 H BUN 67 H Creatinine 8.50 H Glucose 167 H Magnesium 2.2 Total Bilirubin 0.4 AST 14 L ALT 29 Alkaline Phosphatase 106 Imagings Data: Reason for Exam: CHEST PAIN Procedure: Chest Single View HISTORY: Chest pain COMPARISON: January 06, 2025 FINDINGS: The lungs appear clear of acute infiltrate. No significant pleural effusion noted. The heart is mildly to moderately enlarged. Central venous catheter in place. IMPRESSION: No acute abnormality is displayed. Conclusions/Impression: ESRD on HD -HD TIW Hyperkalemia -HD TIW HTN with CKD/ CHF -Hold antihypertensives at this time Diastolic CHF, chronic Peripheral Edema -UF with HD -Low sodium diet Anemia in CKD -Retacrit qHD CKD MBD Secondary HyperParathyroidism -Continue Ergo Chest Pain CAD -Follow up with cardiology Case reviewed with hospitalist team
[2025-01-15] MEDS ORDERED: CLOPIDOGREL 75 MG TABLET PO SCH (09:00)
== END 2025-01-14 17:13 | disposition home or self-care (01) | DRG 280 ==
LOC: ER 06:17 → ERHOLD 09:26 → 2ND 15:20 → OBSVTOIN 15:23
PROVIDERS: ADMIT Family Medicine; ATTEND Family Medicine
PROC: 5A1D70Z Performance of Urinary Filtration, Intermittent, Less than 6 Hours Per Day (ICD-10-PCS; principal; 2025-01-13)
DX: I21.4 Non-ST elevation (NSTEMI) myocardial infarction (principal); N18.6 End stage renal disease; I13.2 Hypertensive heart and chronic kidney disease with heart failure and with stage 5 chronic kidney disease, or end stage renal disease; I50.32 Chronic diastolic (congestive) heart failure; N25.81 Secondary hyperparathyroidism of renal origin; E87.5 Hyperkalemia; E11.22 Type 2 diabetes mellitus with diabetic chronic kidney disease; D63.1 Anemia in chronic kidney disease; E78.5 Hyperlipidemia, unspecified; K21.9 Gastro-esophageal reflux disease without esophagitis; N40.0 Benign prostatic hyperplasia without lower urinary tract symptoms; I25.10 Atherosclerotic heart disease of native coronary artery without angina pectoris; Z99.2 Dependence on renal dialysis; Z79.82 Long term (current) use of aspirin; Z79.02 Long term (current) use of antithrombotics/antiplatelets; Z79.899 Other long term (current) drug therapy
CPT/HCPCS: 36415; 71045; 80048; 80076; 82550; 83735; 83880; 84484; 85025; 85610; 85730; 87340; 90935; 93005; 96365; 96375; 99285; G0378; J0885; J1644; J2270; J2405